=== PATIENT | male | born 1945 | race American Indian/Alaskan Native ===

== ENCOUNTER 2016-10-14 15:54 | Outpatient (CLI) | payer BC, MEDICARE | END 2016-10-14 15:55 | disposition home or self-care (01) | LOC: VAS 15:54 | PROVIDERS: ATTEND Podiatrist Foot & Ankle Surgery | DX: M79.662 Pain in left lower leg (principal); M79.89 Other specified soft tissue disorders ==

== ENCOUNTER 2016-11-17 20:13 | Emergency (ER) | payer BC, MEDICARE ==
[2016-11-17 21:47] LABS: Hematocrit 32.3 % (35.5-45.6); Hemoglobin 10.5 gm/dl (11.8-15.2); Mean Corpuscular HGB Conc 33 % (32-34); Mean Corpuscular Hemoglobin 28 pg (28-32); Mean Corpuscular Volume 86 fl (84-94); Platelet Count 113 K/mm3 (140-440); Red Blood Count 3.77 M/mm3 (3.65-5.03); Red Cell Distribution Width 15.3 % (13.2-15.2); White Blood Count 9.8 K/mm3 (4.5-11.0)
[2016-11-17 21:58] LABS: INR 1.48 (0.87-1.13)
[2016-11-17 21:59] LABS: Partial Thromboplastin Time 39.9 Sec. (24.2-36.6)
--- NOTE | 2016-11-17 22:04 | Emergency Department Report ---
HPI - General Chief Complaint: Dizziness Time Seen by Provider: 11/17/16 21:25 - HPI HPI: This is a 71-year-old Afro-[place]ese male who presents to the emergency department by EMS from [facility] after patient got very dizzy and fell over into a set of shelves and then onto the floor. He did not lose his consciousness before the fall and after hitting his head on the ground he did not lose consciousness as well. He has some discomfort to the right shoulder which is what impacted the floor first. He was feeling very weak and had trouble standing. He's been complaining of some generalized dizziness over the past week. He denies any fever, chest pain, nausea, vomiting or diaphoresis. He has a past medical history of asthma, CHF, COPD, insulin dependent diabetes, hypertension and has coronary artery disease with a previous triple bypass and has a internal defibrillator. He does not have a primary care doctor but his academic assistant is Dr. Walters, his plaster helper is Dr. Mcallister at [facility] and his ladies' hat trimmer is Dr. Bustamante. ED Past Medical Hx - Past Medical History Previous Medical History?: Yes Hx Hypertension: Yes Hx Congestive Heart Failure: Yes Hx Diabetes: Yes Hx Arthritis: Yes Hx Asthma: No Hx COPD: Yes - Surgical History Hx Open Heart Surgery: Yes (TRIPLE BYPASS IN 1996) Hx Pacemaker: Yes Hx Internal Defibrillator: Yes (IMPLANTED 03-27-14) - Social History Smoking Status: Former Smoker Substance Use Type: None - Medications Home Medications: Home Medications Medication Instructions Recorded Confirmed Last Taken Type Carvedilol [Coreg] 25 mg PO BID 08/21/13 08/08/14 05/29/14 History Doxazosin Mesylate 8 mg PO DAILY 08/21/13 08/08/14 05/29/14 History Insulin Glargine,Hum.rec.anlog 30 unit PO QDAY 08/21/13 08/08/14 05/28/14 History [Lantus Solostar] Isosorbide Dinitrate 30 mg PO DAILY 08/21/13 08/08/14 05/29/14 History Ranolazine [Ranexa] 1,000 mg PO BID 08/21/13 08/08/14 05/29/14 History Atorvastatin Calcium [Lipitor] 40 mg PO DAILY 12/25/13 08/08/14 03/26/14 History 40mg amLODIPine [Norvasc] 5 mg PO DAILY 03/27/14 08/08/14 05/29/14 History Epoetin Shorty [Procrit] 4,000 unit SQ QMONTH 08/08/14 08/08/14 08/04/14 History 4000 units Multivitamin [Multi-Vitamin Daily] 1 tab PO DAILY 08/08/14 08/08/14 Unknown History Albuterol Sulfate [Proventil HFA] 2 puff IH Q4H PRN #1 pump 08/13/14 Unknown Rx Insulin Aspart [NovoLOG 100 5 unit SQ AC #1 vial 08/13/14 Unknown Rx UNITS/ML] Metolazone 5 mg PO DAILY 30 Days 08/13/14 Unknown Rx ED Review of Systems ROS: Stated complaint: SYNCOPE Other details as noted in HPI Comment: All other systems reviewed and negative Constitutional: weakness. denies: fever Eyes: denies: eye pain, eye discharge, vision change ENT: denies: ear pain, throat pain Respiratory: shortness of breath. denies: cough Cardiovascular: denies: chest pain, palpitations, edema Gastrointestinal: denies: abdominal pain, nausea, diarrhea Genitourinary: denies: urgency, dysuria Musculoskeletal: arthralgia. denies: back pain Skin: denies: rash, lesions Neurological: headache, weakness. denies: numbness, paresthesias Physical Exam - Physical Exam Vital Signs: Vital Signs 11/17/16 11/17/16 21:16 21:22 Temperature 97.5 F L Pulse Rate 81 Respiratory 11 L 11 L Rate Blood Pressure 90/55 Blood Pressure 90/55 [Left] O2 Sat by Pulse 98 98 Oximetry Physical Exam: GENERAL: The patient is well-developed well-nourished. HEENT: Normocephalic. Atraumatic. Extraocular motions are intact. Patient has moist mucous membranes. Pupils equal reactive to light bilaterally. No nystagmus. NECK: Supple. Trachea is midline. CHEST/LUNGS: Clear to auscultation. There is no respiratory distress noted. HEART/CARDIOVASCULAR: Regular. There is no tachycardia. There is no gallop rub or murmur. ABDOMEN: Abdomen is soft, nontender. Patient has normal bowel sounds. There is no abdominal distention. SKIN: Skin is warm and dry. There are chronic bilateral lower extremity wounds and dressings. NEURO: The patient is awake, alert, and oriented. The patient is cooperative. The patient has no focal neurologic deficits. The patient has normal speech. Cranial nerves II-12 grossly intact. No pronator drift. No dysmetria. MUSCULOSKELETAL: There is no tenderness or deformity. There is no limitation range of motion. There is no evidence of acute injury. ED Course Vital Signs 11/17/16 11/17/16 21:16 21:22 Temperature 97.5 F L Pulse Rate 81 Respiratory 11 L 11 L Rate Blood Pressure 90/55 Blood Pressure 90/55 [Left] O2 Sat by Pulse 98 98 Oximetry - Consultations Consultation #1: 11/18/16 05:11 I spoke with the plaster helper on-call for [facility], whom the patient sees , Dr. Javed, and he says that the patient appears safe for discharge home but has accepted him for a follow-up in the office later today. ED Medical Decision Making - Lab Data Result diagrams: 11/17/16 21:34 11/17/16 21:34 - EKG Data -: EKG Interpreted by Me - EKG Data Interpretation: other (Man pacemaker, wide QRS with PVCs, left axis deviation, right bundle branch block, LVH, nonspecific ST-T changes) - Radiology Data Radiology results: report reviewed, image reviewed interpreted by me: Chest x-ray shows some hyperinflation of the lungs and flattening of the diaphragms but there is no pneumonia, pleural effusions or pneumothorax. X-ray of the right shoulder does not show any fracture, dislocation or any acute process. DT of the head without contrast shows no acute cranial process and mild atrophy. - Medical Decision Making 71-year-old male presents the emergency department after he had some dizziness and weakness and had a fall at [facility] earlier in the evening. He was evaluated with physical exam, labs, imaging and EKG. EKG did not show any ST elevation MD. Patient's labs show some chronic kidney disease and the patient has elevated troponin. A CT of the head was done that did not show any acute intracranial process. X-ray was done of the chest and the right shoulder that did not show any fracture, dislocation or any acute process. The patient was reevaluated multiple times over multiple hours and says he is feeling improved and back at his baseline. A second troponin was obtained and it is trending down. I spoke with the plaster helper on-call for [facility], whom the patient sees, Dr. Javed, and he says that the patient appears safe for discharge home but has accepted him for a follow-up in the office later today. The patient was able to ambulate throughout the emergency department and appeared stable on doing so. He had no further dizziness and weakness. He never had any chest pain or any acute distress. He been encouraged to return to the ER with any worsening of symptoms or any acute distress. - Differential Diagnosis hypoglycemia, DKA, HHNK, MD Critical Care Time: No Critical care attestation.: If time is entered above; I have spent that time in minutes in the direct care of this critically ill patient, excluding procedure time. ED Disposition Clinical Impression: Hyperglycemia, Dizziness Fall Qualifiers: Encounter type: initial encounter Qualified Code(s): W19.XXXA - Unspecified fall, initial encounter Disposition: DC- TO HOME OR SELFCARE Is pt being admited?: No Condition: Stable Instructions: Lightheadedness (ED), Dizziness (ED), Fall Prevention (ED), Diabetic Hyperglycemia (ED) Additional Instructions: Please follow-up with your primary care doctor, plaster helper, ladies' hat trimmer, and wound care physician's in the next few days. Return to the emergency department with any worsening of her symptoms or any acute distress. Continue with your diabetes regimen. Try to stay away from foods that are high in sugar , carbohydrates and starches to help with her blood sugar. Referrals: PRIMARY CARE, [Primary Care Provider] - 3-5 Days ESTER BUSTAMANTE MD [Staff Physician] - 3-5 Days MARCIAL MCALLISTER MD [Staff Physician] - [facility] Time of Disposition: 01:44
[2016-11-17 22:09] LABS: Creatine Kinase MB 2.3 ng/mL (0.0-4.0)
[2016-11-17 22:10] LABS: Albumin 3.2 g/dL (3.9-5); Albumin/Globulin Ratio 0.9 %; BUN/Creatinine Ratio 27.57; Bilirubin,Total 3.3 mg/dL (0.1-1.2); Calcium 8.6 mg/dL (8.4-10.2); Chloride 93.2 mmol/L (98-107); Potassium 4.3 mmol/L (3.6-5.0); Total Protein 6.6 g/dL (6.3-8.2)
[2016-11-17] MEDS ORDERED: NACL 0.9% 500 ML 500 ML IV ONE (22:14)
[2016-11-17 22:44] LABS: Basophils % (Manual) 0 % (0.0-1.8); Blastocytes % (Manual) 0 %; Eosinophils % (Manual) 0 % (0.0-4.3)
[2016-11-17 22:45] LABS: Anisocytosis 1+; Diff Status Complete; Hypochromasia 1+; Ovalocytes Few; Platelet Estimate Consistent w Auto; Poikilocytosis 1+
--- NOTE | 2016-11-17 23:33 | Cat Scan Report ---
FINAL REPORT PROCEDURE: CT HEAD/BRAIN WO CON TECHNIQUE: Computerized tomography of the head was performed without contrast material. HISTORY: Dizziness, fall COMPARISON: No prior studies are available for comparison. FINDINGS: Skull and scalp: Normal. Paranasal sinuses: Moderate opacification of the ethmoid and maxillary sinuses. Ventricles and subarachnoid spaces: Normal. Cerebrum: No evidence of hemorrhage, acute infarction or mass. Mild atrophy is noted. Mild periventricular deep white matter changes. . Cerebellum and brainstem: No evidence of hemorrhage, acute infarction or mass. Vasculature: Normal. Comments: None. IMPRESSION: No acute inrtracranial process. Mild atrophy.
[2016-11-18 00:42] LABS: Urine Drugs of Abuse Note Disclamer
[2016-11-18 00:53] LABS: Bacteria,Urine 1+ /HPF (Negative); Bilirubin,Urine NEG (Negative); Blood,Urine NEG (Negative); Granular Casts,Urine 9 /LPF; Ketones,Urine NEG (Negative); Leukocyte Esterase,Urine NEG (Negative); Nitrite,Urine NEG (Negative)
[2016-11-18 01:45] VITALS: BP 98/67
--- NOTE | 2016-11-18 07:29 | XRay Report ---
RIGHT SHOULDER: History: Shoulder pain. Borderline osteopenia. Moderate to severe osteoarthritic changes are identified at the right a.c. joint. Mild osteoarthritic changes at the glenohumeral joint. No evidence for fracture, dislocation, ligamentous injury or bone lesion. IMPRESSION: Degenerative changes.
--- NOTE | 2016-11-18 07:31 | XRay Report ---
AP CHEST: HISTORY: chest pain Mild cardiomegaly with normal pulmonary vascularity is identified. A 3-lead pacemaker device is in position. Previous CABG changes are suspected. The lungs are clear. No evidence for pneumonia, CHF or pneumothorax. The bony structures are mildly demineralized. IMPRESSION: Cardiomegaly. Lungs clear.
== END 2016-11-18 02:06 | disposition home or self-care (01) ==
LOC: ED 20:13
DX: E11.65 Type 2 diabetes mellitus with hyperglycemia (principal); R42 Dizziness and giddiness; I10 Essential (primary) hypertension; I50.9 Heart failure, unspecified; M19.90 Unspecified osteoarthritis, unspecified site; J44.9 Chronic obstructive pulmonary disease, unspecified; Z87.891 Personal history of nicotine dependence; Z79.4 Long term (current) use of insulin; Z95.0 Presence of cardiac pacemaker; W01.10XA Fall on same level from slipping, tripping and stumbling with subsequent striking against unspecified object, initial encounter; Y93.89 Activity, other specified; Y99.8 Other external cause status; Y92.89 Other specified places as the place of occurrence of the external cause
CPT/HCPCS: 36415; 70450; 71010; 73030; 80053; 80061; 80307; 81001; 82550; 82553; 82962; 84484; 85007; 85025; 85610; 85730; 93005; 93010; 96361; 96374; 99285; J7040; J1815

== ENCOUNTER 2016-11-28 12:06 | Inpatient (IN) | payer BC, MEDICARE ==
[2016-11-28] MEDS ORDERED: NOVOLOG SUB-Q ONE (14:33)
--- NOTE | 2016-11-28 16:32 | Consultation ---
History of Present Illness - Reason for Consult Consult date: 11/28/16 Lower Extremity Wound Infections Requesting physician: NAY MOSQUERA - History of Present Illness Mr. Burgess is off the floor and is unavailable for me to complete his visit today. I will re-attempt tomorrow. Medications and Allergies Allergies Allergy/AdvReac Type Severity Reaction Status Date / Time lisinopril Allergy Mild Unknown Verified 08/08/14 11:26 pollen extracts AdvReac COUGH,SNEEZ Unverified 11/28/16 13:22 E Home Medications Medication Instructions Recorded Confirmed Last Taken Type Carvedilol [Coreg] 25 mg PO BID 08/21/13 08/08/14 05/29/14 History Doxazosin Mesylate 8 mg PO DAILY 08/21/13 08/08/14 05/29/14 History Insulin Glargine,Hum.rec.anlog 30 unit PO QDAY 08/21/13 08/08/14 05/28/14 History [Lantus Solostar] Isosorbide Dinitrate 30 mg PO DAILY 08/21/13 08/08/14 05/29/14 History Ranolazine [Ranexa] 1,000 mg PO BID 08/21/13 08/08/14 05/29/14 History Atorvastatin Calcium [Lipitor] 40 mg PO DAILY 12/25/13 08/08/14 03/26/14 History 40mg amLODIPine [Norvasc] 5 mg PO DAILY 03/27/14 08/08/14 05/29/14 History Epoetin Shorty [Procrit] 4,000 unit SQ QMONTH 08/08/14 08/08/14 08/04/14 History 4000 units Multivitamin [Multi-Vitamin Daily] 1 tab PO DAILY 08/08/14 08/08/14 Unknown History Albuterol Sulfate [Proventil HFA] 2 puff IH Q4H PRN #1 pump 08/13/14 Unknown Rx Insulin Aspart [NovoLOG 100 5 unit SQ AC #1 vial 08/13/14 Unknown Rx UNITS/ML] Metolazone 5 mg PO DAILY 30 Days 08/13/14 Unknown Rx Active Meds: Active Medications Insulin Aspart (Novolog) 0 units SUB-Q ACHS KYLAH PRN Reason: Protocol Pneumococcal Polyvalent Vaccine (Pneumovax 23) 0.5 ml IM .ONCE ONE Stop: 11/29/16 15:00 Physical Examination - Constitutional Vitals: Vital Signs Temp Pulse Resp BP Pulse Ox 97.5 F L 69 20 107/74 11/28/16 14:08 11/28/16 14:08 11/28/16 14:08 11/28/16 14:08 Temperature -Last 24 Hours Temperature 97.5 F Results - Labs CBC & Chem 7: 11/28/16 16:02 Labs: Abnormal lab results 11/28/16 Range/Units 14:16 POC Glucose 500 H (70-105)
[2016-11-28 16:33] LABS: INR 1.42 (0.87-1.13)
[2016-11-28] MEDS ORDERED: MILK OF MAGNESIA PO PRN (16:46)
[2016-11-28] MEDS ORDERED: ZOFRAN IV PRN (16:46)
[2016-11-28] MEDS ORDERED: DULCOLAX PR PRN (16:46)
[2016-11-28 16:54] LABS: BUN/Creatinine Ratio 29.41; Potassium 3.3 mmol/L (3.6-5.0)
--- NOTE | 2016-11-28 17:15 | History and Physical Report ---
History of Present Illness Date of examination: 11/28/16 Date of admission: 11/28/16 13:20 Chief complaint: Bilateral Lower Extremeties Diabetic Ulcers History of present illness: A 71 year-old -Northern [place] male presented to us as a direct admit from Dr Grimm's office for bilateral lower extremities diabetic ulcers and end- stage renal disease. Patient presented with multiple open wounds to the lower extremities closing +4 edema noted. Patient past medical history hypertension, diabetes, AICD. No feve ror chills.No Sob. Past History Past Medical History: diabetes, hypertension Past Surgical History: CABG (1996), Other (AICD placement, back sugery 1996) Social history: lives with family, full code. denies: smoking (quit x20 years, ), alcohol abuse, prescription drug abuse Family history: CAD, cancer, diabetes, hypertension Medications and Allergies Allergies Allergy/AdvReac Type Severity Reaction Status Date / Time lisinopril Allergy Mild Unknown Verified 08/08/14 11:26 pollen extracts AdvReac COUGH,SNEEZ Unverified 11/28/16 13:22 E Home Medications Medication Instructions Recorded Confirmed Last Taken Type Carvedilol [Coreg] 25 mg PO BID 08/21/13 08/08/14 05/29/14 History Doxazosin Mesylate 8 mg PO DAILY 08/21/13 08/08/14 05/29/14 History Insulin Glargine,Hum.rec.anlog 30 unit PO QDAY 08/21/13 08/08/14 05/28/14 History [Lantus Solostar] Isosorbide Dinitrate 30 mg PO DAILY 08/21/13 08/08/14 05/29/14 History Ranolazine [Ranexa] 1,000 mg PO BID 08/21/13 08/08/14 05/29/14 History Atorvastatin Calcium [Lipitor] 40 mg PO DAILY 12/25/13 08/08/14 03/26/14 History 40mg amLODIPine [Norvasc] 5 mg PO DAILY 03/27/14 08/08/14 05/29/14 History Epoetin Shorty [Procrit] 4,000 unit SQ QMONTH 08/08/14 08/08/14 08/04/14 History 4000 units Multivitamin [Multi-Vitamin Daily] 1 tab PO DAILY 08/08/14 08/08/14 Unknown History Albuterol Sulfate [Proventil HFA] 2 puff IH Q4H PRN #1 pump 08/13/14 Unknown Rx Insulin Aspart [NovoLOG 100 5 unit SQ AC #1 vial 08/13/14 Unknown Rx UNITS/ML] Metolazone 5 mg PO DAILY 30 Days 08/13/14 Unknown Rx Active Meds: Active Medications Acetaminophen (Tylenol) 650 mg PO Q4H PRN PRN Reason: Pain MILD(1-3)/Fever >100.5/DANG Bisacodyl (Dulcolax) 10 mg [place] QDAY PRN PRN Reason: Constipation unrelieved by MOM Dextrose (D50w (25gm)) 50 ml IV PRN PRN PRN Reason: Hypoglycemia Heparin Sodium (Porcine) (Heparin) 5,000 unit SUB-Q Q12HR KYLAH Insulin Aspart (Novolog) 0 units SUB-Q ACHS KYLAH PRN Reason: Protocol Magnesium Hydroxide (Milk Of Magnesia) 30 ml PO Q4H PRN PRN Reason: Constipation Morphine Sulfate (Morphine) 1 mg IV Q4H PRN PRN Reason: Pain, Moderate (4-6) Ondansetron HCl (Zofran) 4 mg IV Q8H PRN PRN Reason: Nausea And Vomiting Pneumococcal Polyvalent Vaccine (Pneumovax 23) 0.5 ml IM .ONCE ONE Stop: 11/29/16 15:00 Review of Systems All systems: negative Constitutional: no weight loss, no weight gain, no fever, no chills Ears, nose, mouth and throat: no nasal congestion, no nasal discharge Cardiovascular: no chest pain, no syncope, no shortness of breath Respiratory: cough with sputum (Thick greyish), no hemoptysis, no shortness of breath Gastrointestinal: no abdominal pain, no nausea, no vomiting, no diarrhea, no constipation Genitourinary Male: no dysuria, no hematuria Rectal: no incontinence Musculoskeletal: no arm numbness/tingling, no low back pain Integumentary: no rash, no sores, no wounds Neurological: no head injury, no seizures, no vertigo, no headaches Psychiatric: no anxiety, no suicidal ideation, no depression Endocrine: no fatigue Exam - Constitutional Vitals: Temp Pulse Resp BP Pulse Ox 97.5 F L 69 20 107/74 11/28/16 14:08 11/28/16 14:08 11/28/16 14:08 11/28/16 14:08 General appearance: Present: no acute distress, well-nourished - EENT Eyes: Present: PERRL ENT: hearing intact, clear oral mucosa - Neck Neck: Present: supple, normal ROM - Respiratory Respiratory effort: normal Respiratory: bilateral: CTA - Cardiovascular Rhythm: regular Heart Sounds: Present: S1 & S2. Absent: rub, click - Extremities Extremities: abnormal - Peripheral Assessment Right Foot Edema Type: Pitting Edema Degree: 4+ Skin Temperature: Cool Left Foot Edema Type: Pitting Edema Degree: 4+ Skin Temperature: Warm Peripheral Pulses: abnormal - Peripheral pulses dorsalis pedis Pulse Strength: 1+ (Doppler) - Abdominal General gastrointestinal: Present: soft, non-tender, non-distended, normal bowel sounds Male genitourinary: Present: normal - Integumentary Integumentary: Present: warm, dry - Musculoskeletal Musculoskeletal: gait normal, strength equal bilaterally - Psychiatric Psychiatric: appropriate mood/affect, intact judgment & insight - Neurologic Neurologic: focal deficits - Allied Health Allied health notes reviewed: nursing Results - Labs CBC & Chem 7: 11/28/16 16:02 Labs: Laboratory Last Values PT 17.3 Sec. (12.2-14.9) H 11/28/16 16:02 INR 1.42 (0.87-1.13) H 11/28/16 16:02 APTT 38.0 Sec. (24.2-36.6) H 11/28/16 16:02 Sodium 137 mmol/L (137-145) 11/28/16 16:02 Potassium 3.3 mmol/L (3.6-5.0) L 11/28/16 16:02 Chloride 96.0 mmol/L (98-107) L 11/28/16 16:02 Carbon Dioxide 25 mmol/L (22-30) 11/28/16 16:02 Anion Gap 19 mmol/L 11/28/16 16:02 BUN 100 mg/dL (9-20) H 11/28/16 16:02 Creatinine 3.4 mg/dL (0.8-1.5) H 11/28/16 16:02 Estimated GFR 22 ml/min 11/28/16 16:02 BUN/Creatinine Ratio 29.41 % 11/28/16 16:02 Glucose 235 mg/dL (75-100) H 11/28/16 16:02 POC Glucose 500 (70-105) H 11/28/16 14:16 Hemoglobin A1c 10.6 % (4-6) H 11/28/16 16:02 Calcium 9.0 mg/dL (8.4-10.2) 11/28/16 16:02 Assessment and Plan Assessment and plan: A 71 year-old -[place] male presented to us as a direct admit from Dr Grimm's office for bilateral lower extremities diabetic ulcers and acute end- stage renal disease. Patient presented with multiple open wounds to the lower extremities closing +4 edema noted. Patient past medical history hypertension, diabetes, AICD. On exam, patient alert oriented 3, bilateral lower extremities open wounds. -Cellulitis - consulted ID, antibiotics ordered in the form of vancomycin and unasyn 3.0 q6 h. supportive care -Acute renal failure stage III-nephrology consulted, consulted vascular surgery /IR for possible Vas-Cath placement. -Hypokalemia-replete potassium and follow up labs -DM 2-A1c is 10.6-hence poorly controlled.Patient counselled .Levemir and regular insulin dosage not changed taking into consideration that Glucose dropped rapidly from 500 to 60,and patient maybe non compliant.Advised patient to be compliant,And if he is getting low BG levels with his home insulin -to decrease if necessary. monitor Accu-Cheks and insulin sliding scale ordered. -Wounds- wound care consult, supportive care.Regular dressings. -DVT prophylaxis -heparin SQ ordered Advance Directives: No ( Full Code) VTE prophylaxis?: Chemical Plan of care discussed with patient/family: Yes
[2016-11-28] MEDS ORDERED: K-DUR PO ONE (17:36)
[2016-11-28] MEDS ORDERED: PROAIR IH PRN (17:39)
[2016-11-28] MEDS ORDERED: VANCOMYCIN PHARMACY TO DOSE IV SCH (18:00)
[2016-11-28] MEDS ORDERED: VANCOMYCIN 1,250 MG in NACL 0.9% 250ML 250 ML IV ONE (18:30)
[2016-11-28] MEDS: TYLENOL PO PRN (18:51)
[2016-11-28] MEDS: NOVOLOG SUB-Q SCH ×2 (18:52→21:59)
[2016-11-28] MEDS: MORPHINE IV PRN (20:56)
[2016-11-28] MEDS ORDERED: LEVEMIR SUB-Q SCH (22:00)
[2016-11-28] MEDS ORDERED: NON-FORMULARY (Ranolazine [Ranexa] 1,000 MG) PO SCH (22:00)
[2016-11-28] MEDS: RANEXA ER PO SCH (23:32)
[2016-11-28] MEDS: HEPARIN SUB-Q SCH (23:33)
[2016-11-28] MEDS: COREG PO SCH (23:36)
[2016-11-29] MEDS: UNASYN/NS 3 GM/100 ML 3 GM/100 ML BAG IV SCH ×2 (04:17→14:43)
[2016-11-29] MEDS: D50W (25GM) IV PRN ×3 (07:08→21:16)
[2016-11-29] MEDS: NOVOLOG SUB-Q SCH ×7 (08:13→23:54)
[2016-11-29] MEDS: MORPHINE IV PRN ×2 (08:19→14:48)
--- NOTE | 2016-11-29 08:45 | Admit Criteria Form ---
Admission Criteria Documentation: CELLULITIS Clinical Indications for Admission to Inpatient Care (Place 'X' for any and all applicable criteria): Admission is indicated for ANY ONE of the following(1)(2)(3)(4)(5): [ ]I. Limb-threatening infection [X]II. High-risk comorbid condition as indicated by ANY ONE of the following: [X]a) Uncontrolled diabetes (eg, HbA1c greater than 10% (0.1)) [ ]b) Cirrhosis [ ]c) Neutropenia [ ]d) Asplenia [ ]e) Immunosuppression [ ]f) Symptomatic heart failure [ ]III. Failure of outpatient therapy as indicated by ALL of the following: [ ]a) Progression or no improvement after adequate trial (minimum of 48 hours, with longer period for stable lower extremity infection) [ ]b) Adequate antibiotic regimen as indicated by use of ANY ONE of the following: [ ]i) First-generation cephalosporin (e.g., cephalexin) [ ]ii) Antistaphylococcal penicillin (e.g., dicloxacillin) [ ]iii) Penicillin-allergic patient regimen (clindamycin, extended-spectrum fluoroquinolone, or doxycycline) [ ]iv) Resistant organism (eg, methicillin-resistant Staphylococcus aureus) regimen (6) [ ]c) Outpatient intravenous therapy regimen is not appropriate due to ANY ONE of the following. (7)(8)(9)(10): [ ]i) It was tried and was not successful (eg, progression of infection). [ ]ii) It is not available or cannot be arranged in a clinically appropriate time frame (e.g., the next day). [ ]iii) Clinical presentation (eg, acuity of infection, rapidity of progression, confirmed or suspected bacteremia) is judged to require ALL of the following: [ ]1) Immediate initiation of intravenous therapy ( eg, cannot wait for next day) [ ]2) Intensity of patient monitoring and observation (eg, vital sign measurement, checks for infection progression) that cannot be provided at other than inpatient level of care [ ]IV. Mental status changes [ ]V. Bacteremia [ ]. Hemodynamic instability [ ]VII. Suspected necrotizing soft tissue infection (e.g., gas in tissue)(11)( 12) [ ]VIII. Orbital infection (13)(14) [ ]IX. Associated surgical procedure (e.g., abscess drainage, debridement) not amenable to outpatient, emergency department, or observation care [ ]X. Cutaneous gangrene [ ]XI. High fever (temperature greater than 39.5 degrees C (103.1 degrees F) (oral)) not responsive to outpatient, emergency department, or observation care therapy [ ]XIII. Inpatient admission required rather than observation care (Also use Cellulitis: Observation Care as appropriate) because of ANY ONE of the following : [ ]a) Periorbital or perineal infection that is severe or worsening [ ]b) Severe pain requiring acute inpatient management [ ]c) IV fluid to replace significant ongoing (e.g., for over 24 hours) losses (greater than 3L/m2 per day) [ ]d) Compartment syndrome monitoring (17) [ ]e) Strict or protective (eg, laminar flow) isolation [ ]f) Urgent debridement or skin grafting [ ]g) Bone or joint debridement [ ]h) Immediate inpatient surgery [ ]i) Other condition, treatment or monitoring requiring inpatient admission Extended stay beyond goal length of stay may be needed for (1)(18): [ ]a) Necrotizing soft tissue infection or fasciitis [ ]b) Gram-negative infection [ ]c) Methicillin-resistant Staphylococcal aureus (MRSA) infection [ ]d) Peripheral venous insufficiency with cellulitis [ ]e) Extensive edema [ ]f) Sepsis or continued Hemodynamic instability [ ]g) Continued high fever or mental status change [ ]h) Bacteremia [ ]i) Active serious comorbid conditions ( eg, heart failure, renal insufficiency) The original [facility] content created by [facility] [employer] has been revised. The portions of the content which have been revised are identified through the use of italic text or in bold, and [facility] has neither reviewed nor approved the modified material. All other unmodified content is copyright [facility] [employer] [facility] Please see references footnoted in the original [facility] [employer] edition 2016 Admission Criteria Met: Yes
[2016-11-29] MEDS ORDERED: ANCEF/STERILE WATER 2 GM/20 ML 2 GM/20 ML SYRINGE IV NR (09:00)
--- NOTE | 2016-11-29 09:34 | Vascular Lab Report ---
LOWER EXTREMITY ARTERIAL DUPLEX: REASON FOR EXAM: Peripheral arterial disease. COMMENTS ON THE RIGHT: Biphasic waveforms are seen proximally. Biphasic waveforms are seen distally. No significant velocity gradients are identified. Scatter plaque identified throughout the vessels. Findings are consistent with normal perfusion. Findings are consistent with the ability to heal distal wounds. COMMENTS ON THE LEFT: Triphasic waveforms are seen proximally. Monophasic waveforms are seen distally. No significant velocity gradients are identified. Scatter plaque identified throughout the vessels. Findings are consistent with normal perfusion. Findings are consistent with the ability to heal distal wounds. IMPRESSION: RIGHT: Essentially normal arterial flow with nonocclusive peripheral vascular disease. LEFT:Essentially normal arterial flow with no hemodynamically significant stenosis but nonocclusive peripheral vascular disease.
[2016-11-29 09:38] LABS: Eosinophils % (Auto) 0.1 % (0.0-4.3); Hematocrit 30.9 % (35.5-45.6); Hemoglobin 10.2 gm/dl (11.8-15.2); Mean Corpuscular HGB Conc 33 % (32-34); Mean Corpuscular Hemoglobin 28 pg (28-32); Mean Corpuscular Volume 84 fl (84-94); Platelet Count 104 K/mm3 (140-440); Red Blood Count 3.66 M/mm3 (3.65-5.03); White Blood Count 10.4 K/mm3 (4.5-11.0)
[2016-11-29 09:51] LABS: BUN/Creatinine Ratio 32.75; Calcium 8.5 mg/dL (8.4-10.2); Chloride 101.2 mmol/L (98-107); Potassium 3.7 mmol/L (3.6-5.0)
[2016-11-29] MEDS ORDERED: ZAROXOLYN PO SCH (10:00)
[2016-11-29] MEDS ORDERED: NON-FORMULARY (Insulin Glargine,Hum.Rec.Anlog [Lantus Solostar] 30 UNIT) PO SCH (10:00)
[2016-11-29] MEDS ORDERED: NON-FORMULARY (Doxazosin Mesylate [Doxazosin Mesylate] 8 MG) PO SCH (10:00)
[2016-11-29] MEDS ORDERED: NON-FORMULARY (Isosorbide Dinitrate [Isosorbide Dinitrate] 30 MG) PO SCH (10:00)
--- NOTE | 2016-11-29 10:04 | Consultation ---
History of Present Illness - Reason for Consult Consult date: 11/29/16 acute renal failure, chronic renal failure Requesting physician: ANY MOSQUERA - History of Present Illness A 71 year-old -Maldivian male presented to us as a direct admit from Dr Grimm's office for bilateral lower extremities diabetic ulcers and chronic renal disease. Patient presented with multiple open wounds to the lower extremities closing +4 edema noted. Patient past medical history hypertension, diabetes, AICD. No feve ror chills.No Sob. Past History Past Medical History: CAD, diabetes, hypertension, hyperlipidemia, PVD, renal failure Past Surgical History: CABG (1996), Other (AICD placement, back sugery 1996) Social history: lives with family, full code. denies: smoking (quit x20 years, ), alcohol abuse, prescription drug abuse Family history: CAD, cancer, diabetes, hypertension Medications and Allergies Allergies Allergy/AdvReac Type Severity Reaction Status Date / Time lisinopril Allergy Mild Unknown Verified 08/08/14 11:26 pollen extracts AdvReac COUGH,SNEEZ Unverified 11/28/16 13:22 E Home Medications Medication Instructions Recorded Confirmed Last Taken Type Carvedilol [Coreg] 25 mg PO BID 08/21/13 08/08/14 05/29/14 History Doxazosin Mesylate 8 mg PO DAILY 08/21/13 08/08/14 05/29/14 History Insulin Glargine,Hum.rec.anlog 30 unit PO QDAY 08/21/13 08/08/14 05/28/14 History [Lantus Solostar] Isosorbide Dinitrate 30 mg PO DAILY 08/21/13 08/08/14 05/29/14 History Ranolazine [Ranexa] 1,000 mg PO BID 08/21/13 08/08/14 05/29/14 History Atorvastatin Calcium [Lipitor] 40 mg PO DAILY 12/25/13 08/08/14 03/26/14 History 40mg amLODIPine [Norvasc] 5 mg PO DAILY 03/27/14 08/08/14 05/29/14 History Epoetin Shorty [Procrit] 4,000 unit SQ QMONTH 08/08/14 08/08/14 08/04/14 History 4000 units Multivitamin [Multi-Vitamin Daily] 1 tab PO DAILY 08/08/14 08/08/14 Unknown History Albuterol Sulfate [Proventil HFA] 2 puff IH Q4H PRN #1 pump 08/13/14 Unknown Rx Insulin Aspart [NovoLOG 100 5 unit SQ AC #1 vial 08/13/14 Unknown Rx UNITS/ML] Metolazone 5 mg PO DAILY 30 Days 08/13/14 Unknown Rx Active Meds: Active Medications Acetaminophen (Tylenol) 650 mg PO Q4H PRN PRN Reason: Pain MILD(1-3)/Fever >100.5/DANG Last Admin: 11/28/16 18:51 Dose: 650 mg Albuterol (Proventil) 2.5 mg IH Q4HRT PRN PRN Reason: Shortness Of Breath Amlodipine Besylate (Norvasc) 5 mg PO DAILY [facility] Atorvastatin Calcium (Lipitor) 40 mg PO QHS [facility] Last Admin: 11/28/16 23:33 Dose: 40 mg Bisacodyl (Dulcolax) 10 mg [place] QDAY PRN PRN Reason: Constipation unrelieved by MOM Carvedilol (Coreg) 25 mg PO BID [facility] Last Admin: 11/28/16 23:36 Dose: 25 mg Dextrose (D50w (25gm)) 50 ml IV PRN PRN PRN Reason: Hypoglycemia Last Admin: 11/29/16 07:08 Dose: 25 ml Doxazosin Mesylate (Cardura) 8 mg PO QDAY [facility] Heparin Sodium (Porcine) (Heparin) 5,000 unit SUB-Q Q12HR [facility] Last Admin: 11/28/16 23:33 Dose: 5,000 unit Ampicillin Sodium/Sulbactam Sodium (Unasyn/Ns 3 Gm/100 Ml) 3 gm in 100 mls @ 100 mls/hr IV Q12H [facility] PRN Reason: Protocol Last Admin: 11/29/16 04:17 Dose: 100 mls/hr Insulin Aspart (Novolog) 0 units SUB-Q ACHS [facility] PRN Reason: Protocol Last Admin: 11/29/16 08:13 Dose: Not Given Insulin Aspart (Novolog) 8 units SUB-Q AC [facility] Last Admin: 11/29/16 08:14 Dose: Not Given Insulin Detemir (Levemir) 45 units SUB-Q QHS [facility] Isosorbide Dinitrate (Isordil Titradose) 30 mg PO DAILY [facility] Morphine Sulfate (Morphine) 1 mg IV Q4H PRN PRN Reason: Pain, Moderate (4-6) Last Admin: 11/29/16 08:19 Dose: 1 mg Ondansetron HCl (Zofran) 4 mg IV Q8H PRN PRN Reason: Nausea And Vomiting Pneumococcal Polyvalent Vaccine (Pneumovax 23) 0.5 ml IM .ONCE ONE Stop: 11/29/16 15:00 Ranolazine (Ranexa Er) 1,000 mg PO BID [facility] Last Admin: 11/28/16 23:32 Dose: 1,000 mg Vancomycin HCl (Vancomycin Pharmacy To Dose) 1 each IV PKCONSULT [facility] PRN Reason: Protocol Review of Systems Constitutional: fatigue, weakness, malaise Musculoskeletal: redness of joints, muscle weakness, myalgias, limitation of motion Integumentary: sores, darkening of skin, depigmentation, foot/leg ulcers Exam - Vital Signs Vital signs: Vital Signs Pulse Ox 97 11/28/16 14:06 - Physical Exam Narrative exam: General appearance: Present: no acute distress, well-nourished - EENT Eyes: Present: PERRL ENT: hearing intact, clear oral mucosa - Neck Neck: Present: supple, normal ROM - Respiratory Respiratory effort: normal Respiratory: bilateral: CTA - Cardiovascular Rhythm: regular Heart Sounds: Present: S1 & S2. Absent: rub, click - Extremities Extremities: abnormal - Peripheral Assessment Right Foot Edema Type: Pitting Edema Degree: 4+ Skin Temperature: Cool Left Foot Edema Type: Pitting Edema Degree: 4+ Skin Temperature: Warm Peripheral Pulses: abnormal - Peripheral pulses dorsalis pedis Pulse Strength: 1+ (Doppler) - Abdominal General gastrointestinal: Present: soft, non-tender, non-distended, normal bowel sounds Male genitourinary: Present: normal - Integumentary Integumentary: Present: warm, dry - Musculoskeletal Musculoskeletal: gait normal, strength equal bilaterally - Psychiatric Psychiatric: appropriate mood/affect, intact judgment & insight - Neurologic Neurologic: focal deficits Results - Lab Results 11/29/16 08:37 11/29/16 08:37 Most recent lab results Calcium 8.5 mg/dL (8.4-10.2) 11/29/16 08:37 Assessment and Plan Impression: * TREMAINE on CKD stage 4 * Foot/leg ulcers * HTN * DM type 2 * CAD * PVD * COPD Plan: * strict i/os * iv abx for DM ulcers * follow up renal us/UA--r/o infection * dose meds crcl 20ml/min * 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
--- NOTE | 2016-11-29 12:33 | Consultation ---
History of Present Illness - Reason for Consult Consult date: 11/29/16 Lower Extremity Wounds Requesting physician: NAY MOSQUERA - History of Present Illness Mr. Burgess is a 71-year-old man directly admitted from Dr. Grimm's office with concerns of wound infections over his lower extremities. He is a pleasant, but his history is somewhat unreliable given apparent dementia. He says he has had chronic wounds on both legs for 5-6 months. He has been managed at the wound clinic with what he and his daughter describe as wound cleaning and "DEISI" wraps. More recently, the wounds have increased drainage with a foul odor. He denies systemic complaints, namely no fever, chills, decreased appetite. He is admitted for wound care and treatment of presumed infected wounds. ID consultation is requested for antibiotic treatment recommendations. Past History Past Medical History: CAD, diabetes, hypertension, hyperlipidemia, PVD, renal failure Past Surgical History: CABG (1996), Other (AICD placement, back sugery 1996) Social history: lives with family, full code. denies: smoking (quit x20 years, ), alcohol abuse, prescription drug abuse Family history: CAD, cancer, diabetes, hypertension Medications and Allergies Allergies Allergy/AdvReac Type Severity Reaction Status Date / Time lisinopril Allergy Mild Unknown Verified 08/08/14 11:26 pollen extracts AdvReac COUGH,SNEEZ Unverified 11/28/16 13:22 E Home Medications Medication Instructions Recorded Confirmed Last Taken Type Carvedilol [Coreg] 25 mg PO BID 08/21/13 08/08/14 05/29/14 History Doxazosin Mesylate 8 mg PO DAILY 08/21/13 08/08/14 05/29/14 History Insulin Glargine,Hum.rec.anlog 30 unit PO QDAY 08/21/13 08/08/14 05/28/14 History [Lantus Solostar] Isosorbide Dinitrate 30 mg PO DAILY 08/21/13 08/08/14 05/29/14 History Ranolazine [Ranexa] 1,000 mg PO BID 08/21/13 08/08/14 05/29/14 History Atorvastatin Calcium [Lipitor] 40 mg PO DAILY 12/25/13 08/08/14 03/26/14 History 40mg amLODIPine [Norvasc] 5 mg PO DAILY 03/27/14 08/08/14 05/29/14 History Epoetin Shorty [Procrit] 4,000 unit SQ QMONTH 08/08/14 08/08/14 08/04/14 History 4000 units Multivitamin [Multi-Vitamin Daily] 1 tab PO DAILY 08/08/14 08/08/14 Unknown History Albuterol Sulfate [Proventil HFA] 2 puff IH Q4H PRN #1 pump 08/13/14 Unknown Rx Insulin Aspart [NovoLOG 100 5 unit SQ AC #1 vial 08/13/14 Unknown Rx UNITS/ML] Metolazone 5 mg PO DAILY 30 Days 08/13/14 Unknown Rx Active Meds: Active Medications Acetaminophen (Tylenol) 650 mg PO Q4H PRN PRN Reason: Pain MILD(1-3)/Fever >100.5/DANG Last Admin: 11/28/16 18:51 Dose: 650 mg Albuterol (Proventil) 2.5 mg IH Q4HRT PRN PRN Reason: Shortness Of Breath Amlodipine Besylate (Norvasc) 5 mg PO DAILY [facility] Atorvastatin Calcium (Lipitor) 40 mg PO QHS [facility] Last Admin: 11/28/16 23:33 Dose: 40 mg Bisacodyl (Dulcolax) 10 mg [place] QDAY PRN PRN Reason: Constipation unrelieved by MOM Carvedilol (Coreg) 25 mg PO BID [facility] Last Admin: 11/28/16 23:36 Dose: 25 mg Dextrose (D50w (25gm)) 50 ml IV PRN PRN PRN Reason: Hypoglycemia Last Admin: 11/29/16 11:50 Dose: 50 ml Doxazosin Mesylate (Cardura) 8 mg PO QDAY [facility] Heparin Sodium (Porcine) (Heparin) 5,000 unit SUB-Q Q12HR [facility] Last Admin: 11/28/16 23:33 Dose: 5,000 unit Ampicillin Sodium/Sulbactam Sodium (Unasyn/Ns 3 Gm/100 Ml) 3 gm in 100 mls @ 100 mls/hr IV Q12H [facility] PRN Reason: Protocol Last Admin: 11/29/16 04:17 Dose: 100 mls/hr Sodium Chloride (Nacl 0.45% 1000 Ml) 1,000 mls @ 65 mls/hr IV DIRECT [facility] Insulin Aspart (Novolog) 0 units SUB-Q ACHS [facility] PRN Reason: Protocol Last Admin: 11/29/16 08:13 Dose: Not Given Insulin Aspart (Novolog) 8 units SUB-Q AC [facility] Last Admin: 11/29/16 08:14 Dose: Not Given Insulin Detemir (Levemir) 45 units SUB-Q QHS [facility] Isosorbide Dinitrate (Isordil Titradose) 30 mg PO DAILY [facility] Morphine Sulfate (Morphine) 1 mg IV Q4H PRN PRN Reason: Pain, Moderate (4-6) Last Admin: 11/29/16 08:19 Dose: 1 mg Ondansetron HCl (Zofran) 4 mg IV Q8H PRN PRN Reason: Nausea And Vomiting Pneumococcal Polyvalent Vaccine (Pneumovax 23) 0.5 ml IM .ONCE ONE Stop: 11/29/16 15:00 Ranolazine (Ranexa Er) 1,000 mg PO BID [facility] Last Admin: 11/28/16 23:32 Dose: 1,000 mg Vancomycin HCl (Vancomycin Pharmacy To Dose) 1 each IV PKCONSULT [facility] PRN Reason: Protocol Review of Systems All systems: negative Constitutional: no fever, no chills, no sweats, no poor appetite Cardiovascular: no chest pain, no shortness of breath Respiratory: no cough Gastrointestinal: no nausea, no vomiting, no diarrhea Genitourinary Male: no dysuria Integumentary: wounds, no rash, no pruritis Physical Examination - Constitutional Vitals: Vital Signs Temp Pulse Resp BP Pulse Ox 98.0 F 94 H 16 106/55 96 11/29/16 08:00 11/29/16 08:00 11/29/16 08:49 11/29/16 08:00 11/29/16 08:00 Temperature -Last 24 Hours Temperature 98.0 F Temperature 98.0 F Temperature 97.5 F General appearance: Present: no acute distress - Neck Neck: Present: supple - Respiratory Respiratory: bilateral: CTA, negative: rhonchi, wheezing - Cardiovascular Rhythm: regularly irregular (ICD at left chest wall) - Extremities Extremities: abnormal (bilateral legs have superficial wounds laterally at the level of calf with purulent, malodorous drainage; there is mild pedal edema bilaterally) - Abdominal General gastrointestinal: Present: soft, non-tender, non-distended - Integumentary Integumentary: Absent: rash - Psychiatric Psychiatric: appropriate mood/affect - Neurologic Neurologic: other (alert; oriented to person and "hospital", not to year ("1939- ")) Results - Labs CBC & Chem 7: 11/29/16 08:37 11/29/16 08:37 Labs: Abnormal lab results 11/28/16 11/28/16 11/28/16 Range/Units 14:16 16:02 16:02 Hgb (11.8-15.2) gm/dl Hct (35.5-45.6) % RDW (13.2-15.2) % Plt Count (140-440) K/mm3 Lymph % (Auto) (13.4-35.0) % [place] % (Auto) (0.0-7.3) % Lymph # (1.2-5.4) K/mm3 [place] # (0.0-0.8) K/mm3 Seg Neutrophils % (40.0-70.0) % Seg Neutrophils # (1.8-7.7) K/mm3 PT 17.3 H (12.2-14.9) Sec. INR 1.42 H (0.87-1.13) APTT 38.0 H (24.2-36.6) Sec. Potassium 3.3 L (3.6-5.0) mmol/L Chloride 96.0 L (98-107) mmol/L BUN 100 H (9-20) mg/dL Creatinine 3.4 H (0.8-1.5) mg/dL Glucose 235 H (75-100) mg/dL POC Glucose 500 H (70-105) Hemoglobin A1c (4-6) % 11/28/16 11/28/16 11/29/16 Range/Units 16:02 21:30 05:50 Hgb (11.8-15.2) gm/dl Hct (35.5-45.6) % RDW (13.2-15.2) % Plt Count (140-440) K/mm3 Lymph % (Auto) (13.4-35.0) % [place] % (Auto) (0.0-7.3) % Lymph # (1.2-5.4) K/mm3 [place] # (0.0-0.8) K/mm3 Seg Neutrophils % (40.0-70.0) % Seg Neutrophils # (1.8-7.7) K/mm3 PT (12.2-14.9) Sec. INR (0.87-1.13) APTT (24.2-36.6) Sec. Potassium (3.6-5.0) mmol/L Chloride (98-107) mmol/L BUN (9-20) mg/dL Creatinine (0.8-1.5) mg/dL Glucose (75-100) mg/dL POC Glucose 68 L 40 L (70-105) Hemoglobin A1c 10.6 H (4-6) % 11/29/16 11/29/16 11/29/16 Range/Units 06:33 08:37 08:37 Hgb 10.2 L (11.8-15.2) gm/dl Hct 30.9 L (35.5-45.6) % RDW 16.0 H (13.2-15.2) % Plt Count 104 L (140-440) K/mm3 Lymph % (Auto) 2.4 L (13.4-35.0) % [place] % (Auto) 8.5 H (0.0-7.3) % Lymph # 0.2 L (1.2-5.4) K/mm3 [place] # 0.9 H (0.0-0.8) K/mm3 Seg Neutrophils % 89.0 H (40.0-70.0) % Seg Neutrophils # 9.2 H (1.8-7.7) K/mm3 PT (12.2-14.9) Sec. INR (0.87-1.13) APTT (24.2-36.6) Sec. Potassium (3.6-5.0) mmol/L Chloride (98-107) mmol/L BUN 95 H (9-20) mg/dL Creatinine 2.9 H (0.8-1.5) mg/dL Glucose (75-100) mg/dL POC Glucose 57 L (70-105) Hemoglobin A1c (4-6) % 11/29/16 Range/Units 11:41 Hgb (11.8-15.2) gm/dl Hct (35.5-45.6) % RDW (13.2-15.2) % Plt Count (140-440) K/mm3 Lymph % (Auto) (13.4-35.0) % [place] % (Auto) (0.0-7.3) % Lymph # (1.2-5.4) K/mm3 [place] # (0.0-0.8) K/mm3 Seg Neutrophils % (40.0-70.0) % Seg Neutrophils # (1.8-7.7) K/mm3 PT (12.2-14.9) Sec. INR (0.87-1.13) APTT (24.2-36.6) Sec. Potassium (3.6-5.0) mmol/L Chloride (98-107) mmol/L BUN (9-20) mg/dL Creatinine (0.8-1.5) mg/dL Glucose (75-100) mg/dL POC Glucose 48 L (70-105) Hemoglobin A1c (4-6) % Lower Extremity Arterial Studies - non-occlusive disease bilaterally; no significant stenoses Assessment and Plan - Patient Problems (1) Wound infection Current Visit: Yes Status: Acute Plan to address problem: 1. Will culture wounds to help guide antimicrobial treatment. Yield may be limited with antibiotics. 2. Debridement is recommended. 3. No significant vascular disease seen on duplex studies. 4. Empiric Vancomycin and Unasyn are ideal for now.
--- NOTE | 2016-11-29 13:56 | Progress Note ---
Assessment and Plan Assessment and plan: Bilateral DM leg ulcer DM Acute on chronic kidney disease Hypertension CAD Chronic systolic heart failure - Patient is on Unasyn and vancomycin, ID consulted - Vascular surgery was consulted to evaluated for peripheral vascular disease - Nephrology consult appreciated - Patient is dehydrated, will stop Lasix, started on gentle hydration - Sliding scale insulin - Resume home medications DVT prophylaxis - Heparin Disposition - Continue inpatient care. History Interval history: Patient seen and evaluated this morning, he is complaining bilateral leg ulcers. Hospitalist Physical - Physical exam Narrative exam: Not in cardiopulmonary distress. The patient appeared well nourished and normally developed. Vital signs as documented. Head exam is unremarkable. No scleral icterus . Neck is without jugular venous distension, thyromegaly, or carotid bruits. Lungs are clear to auscultation. Cardiac exam reveals regular rate and Rhythm. First and second heart sounds normal. No murmurs, rubs or gallops. Abdominal exam reveals normal bowel sounds, no masses, no organomegaly and no aortic enlargement. Extremities are nonedematous and both femoral and pedal pulses are normal. 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 No focal weakness. - Constitutional Vitals: Temp Pulse Resp BP Pulse Ox 98.0 F 94 H 16 106/55 96 11/29/16 08:00 11/29/16 08:00 11/29/16 08:49 11/29/16 08:00 11/29/16 08:00 General appearance: Present: no acute distress, well-nourished Results - Labs CBC & Chem 7: 11/29/16 08:37 11/29/16 08:37 Labs: Laboratory Last Values WBC 10.4 K/mm3 (4.5-11.0) 11/29/16 08:37 RBC 3.66 M/mm3 (3.65-5.03) 11/29/16 08:37 Hgb 10.2 gm/dl (11.8-15.2) L 11/29/16 08:37 Hct 30.9 % (35.5-45.6) L 11/29/16 08:37 MCV 84 fl (84-94) 11/29/16 08:37 MCH 28 pg (28-32) 11/29/16 08:37 MCHC 33 % (32-34) 11/29/16 08:37 RDW 16.0 % (13.2-15.2) H 11/29/16 08:37 Plt Count 104 K/mm3 (140-440) L 11/29/16 08:37 Lymph % (Auto) 2.4 % (13.4-35.0) L 11/29/16 08:37 [place] % (Auto) 8.5 % (0.0-7.3) H 11/29/16 08:37 Eos % (Auto) 0.1 % (0.0-4.3) 11/29/16 08:37 Baso % (Auto) 0.0 % (0.0-1.8) 11/29/16 08:37 Lymph # 0.2 K/mm3 (1.2-5.4) L 11/29/16 08:37 [place] # 0.9 K/mm3 (0.0-0.8) H 11/29/16 08:37 Eos # 0.0 K/mm3 (0.0-0.4) 11/29/16 08:37 Baso # 0.0 K/mm3 (0.0-0.1) 11/29/16 08:37 Seg Neutrophils % 89.0 % (40.0-70.0) H 11/29/16 08:37 Seg Neutrophils # 9.2 K/mm3 (1.8-7.7) H 11/29/16 08:37 PT 17.3 Sec. (12.2-14.9) H 11/28/16 16:02 INR 1.42 (0.87-1.13) H 11/28/16 16:02 APTT 38.0 Sec. (24.2-36.6) H 11/28/16 16:02 Sodium 138 mmol/L (137-145) 11/29/16 08:37 Potassium 3.7 mmol/L (3.6-5.0) 11/29/16 08:37 Chloride 101.2 mmol/L (98-107) 11/29/16 08:37 Carbon Dioxide 25 mmol/L (22-30) 11/29/16 08:37 Anion Gap 16 mmol/L 11/29/16 08:37 BUN 95 mg/dL (9-20) H 11/29/16 08:37 Creatinine 2.9 mg/dL (0.8-1.5) H 11/29/16 08:37 Estimated GFR 26 ml/min 11/29/16 08:37 BUN/Creatinine Ratio 32.75 % 11/29/16 08:37 Glucose 82 mg/dL (75-100) 11/29/16 08:37 POC Glucose 48 (70-105) L 11/29/16 11:41 Hemoglobin A1c 10.6 % (4-6) H 11/28/16 16:02 Calcium 8.5 mg/dL (8.4-10.2) 11/29/16 08:37
[2016-11-29] MEDS: NACL 0.45% 1000 ML 1,000 ML IV SCH (14:43)
[2016-11-29] MEDS: RANEXA ER PO SCH (14:45)
[2016-11-29] MEDS: HEPARIN SUB-Q SCH (14:46)
[2016-11-29] MEDS: CARDURA PO SCH (14:56)
[2016-11-29] MEDS: COREG PO SCH (14:56)
[2016-11-29] MEDS: ISORDIL TITRADOSE PO SCH (14:57)
[2016-11-29] MEDS: NORVASC PO SCH (14:57)
[2016-11-29] MEDS ORDERED: PNEUMOVAX 23 IM ONE (14:59)
[2016-11-29] MEDS: LEVEMIR SUB-Q SCH (23:53)
[2016-11-30] MEDS: RANEXA ER PO SCH ×3 (00:04→22:34)
[2016-11-30] MEDS: HEPARIN SUB-Q SCH ×3 (00:05→22:34)
[2016-11-30] MEDS: COREG PO SCH ×3 (00:05→23:19)
[2016-11-30] MEDS: DAKIN'S HALF STRENGTH TP SCH ×4 (04:19→23:25)
[2016-11-30] MEDS: UNASYN/NS 3 GM/100 ML 3 GM/100 ML BAG IV SCH ×2 (07:00→16:51)
[2016-11-30] MEDS: NOVOLOG SUB-Q SCH ×7 (07:46→23:22)
--- NOTE | 2016-11-30 09:34 | Progress Note ---
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 Absent: rub, click - Extremities Extremities: abnormal - Peripheral Assessment Right Foot Edema Type: Pitting Edema Degree: 4+ Skin Temperature: Cool Left Foot Edema Type: Pitting Edema Degree: 4+ Skin Temperature: Warm Peripheral Pulses: abnormal - Peripheral pulses dorsalis pedis Pulse Strength: 1+ (Doppler) - Abdominal General gastrointestinal: Present: soft, non-tender, non-distended, normal bowel sounds Male genitourinary: Present: normal - Integumentary Integumentary: Present: warm, dry - Musculoskeletal Musculoskeletal: gait normal, strength equal bilaterally - Psychiatric Psychiatric: appropriate mood/affect, intact judgment & insight - Neurologic Neurologic: focal deficits - Vital Signs Vital signs: Vital Signs - 12hr 11/29/16 11/30/16 23:11 00:05 Temperature 97.9 F Pulse Rate 74 Pulse Rate [ 84 Left Radial] Respiratory 20 Rate Blood Pressure 140/70 Blood Pressure 101/64 [Left Arm] O2 Sat by Pulse 98 Oximetry - Lab 11/30/16 08:53 11/30/16 08:53 Most recent lab results Calcium 8.5 mg/dL (8.4-10.2) 11/29/16 08:37
[2016-11-30 10:05] LABS: Hematocrit 33.2 % (35.5-45.6); Hemoglobin 10.9 gm/dl (11.8-15.2); Mean Corpuscular HGB Conc 33 % (32-34); Mean Corpuscular Hemoglobin 28 pg (28-32); Mean Corpuscular Volume 86 fl (84-94); Red Blood Count 3.88 M/mm3 (3.65-5.03); Red Cell Distribution Width 16.3 % (13.2-15.2); White Blood Count 10.2 K/mm3 (4.5-11.0)
[2016-11-30 10:06] LABS: Platelet Count 96 K/mm3 (140-440)
[2016-11-30 10:28] LABS: BUN/Creatinine Ratio 33.91; Chloride 99.8 mmol/L (98-107); Potassium 4.3 mmol/L (3.6-5.0)
[2016-11-30 10:41] LABS: Bilirubin,Urine NEG (Negative); Blood,Urine NEG (Negative); Ketones,Urine NEG (Negative); Leukocyte Esterase,Urine TR (Negative); Nitrite,Urine NEG (Negative); Urobilinogen,Urine < 2.0 mg/dL (<2.0)
--- NOTE | 2016-11-30 10:46 | Progress Note ---
Assessment and Plan - Patient Problems (1) Wound infection Current Visit: Yes Status: Acute Plan to address problem: 1. Wound cultures not yet collected. 2. Continue empiric Vancomycin/ Unasyn for now. 3. Local care to wounds with final antibiotic combination and duration based upon any culture yield. Subjective Date of service: 11/30/16 Principal diagnosis: marquis Interval history: Remains stable, afebrile. No new complaints. Objective - Constitutional Vitals: Vital Signs Temp Pulse Resp BP Pulse Ox 98.1 F 84 18 91/55 100 11/30/16 08:00 11/30/16 08:00 11/30/16 08:00 11/30/16 08:00 11/30/16 08:00 Temperature -Last 24 Hours Temperature 98.1 F Temperature 97.9 F Temperature 97.9 F Temperature 97.2 F General appearance: Present: no acute distress - Neck Neck: supple - Respiratory Respiratory: bilateral: CTA - Cardiovascular Rhythm: other (ICD at left chest) Extremity abnormal: other (foul drainage continues from bilateral leg ulcers, no bleeding, no fluctuance) - Gastrointestinal General gastrointestinal: Present: soft, distended - Integumentary Integumentary: no rash - Neurologic Neurologic: no focal deficits, moves all extremities - Psychiatric Psychiatric: appropriate mood/affect - Labs CBC & Chem 7: 11/30/16 08:53 11/30/16 08:53 Labs: Abnormal lab results 11/29/16 11/29/16 11/29/16 Range/Units 11:41 12:48 15:44 Hgb (11.8-15.2) gm/dl Hct (35.5-45.6) % RDW (13.2-15.2) % Plt Count (140-440) K/mm3 BUN (9-20) mg/dL Creatinine (0.8-1.5) mg/dL Glucose (75-100) mg/dL POC Glucose 48 L 143 H 138 H (70-105) 11/29/16 11/29/16 11/30/16 Range/Units 21:04 22:26 06:11 Hgb (11.8-15.2) gm/dl Hct (35.5-45.6) % RDW (13.2-15.2) % Plt Count (140-440) K/mm3 BUN (9-20) mg/dL Creatinine (0.8-1.5) mg/dL Glucose (75-100) mg/dL POC Glucose 49 L 165 H 121 H (70-105) 11/30/16 11/30/16 Range/Units 08:53 08:53 Hgb 10.9 L (11.8-15.2) gm/dl Hct 33.2 L (35.5-45.6) % RDW 16.3 H (13.2-15.2) % Plt Count 96 L (140-440) K/mm3 BUN 78 H (9-20) mg/dL Creatinine 2.3 H (0.8-1.5) mg/dL Glucose 139 H (75-100) mg/dL POC Glucose (70-105)
[2016-11-30 10:50] LABS: Calcium 8.3 mg/dL (8.4-10.2)
[2016-11-30 10:51] LABS: Acanthocytes Rare; Anisocytosis 1+; Basophils % (Manual) 0 % (0.0-1.8); Blastocytes % (Manual) 0 %; Burr Cells Few; Elliptocytes Few; Eosinophils % (Manual) 0 % (0.0-4.3); Ovalocytes Few
[2016-11-30 10:52] LABS: Diff Status Complete; Giant Platelets Few; Platelet Estimate Appears Decreased; Target Cells Few
[2016-11-30 10:52] LABS: RBC,Urine < 1.0 /HPF (0.0-6.0)
--- NOTE | 2016-11-30 11:03 | Ultrasound Report ---
Renal ultrasound: Renal failure. The right renal length is 9.9 cm. There is a single cortical cyst measuring 17 mm. The parenchyma is mildly echogenic. No hydronephrosis nor solid lesion is identified. The left kidney measures 10.5 cm in length however the inferior pole is not optimally visualized. The kidney is echogenic but not otherwise remarkable. Both ascites and pleural effusions are identified. Imaging of the urinary bladder is unremarkable. The renal findings are not significantly changed compared to prior study in December 2014. Impressions: Echogenic kidneys consistent with medical renal disease. Stable right renal cyst.
[2016-11-30] MEDS: NORVASC PO SCH (11:54)
--- NOTE | 2016-11-30 12:30 | Progress Note ---
Assessment and Plan Assessment and plan: Bilateral DM leg ulcer DM Acute on chronic kidney disease Hypertension CAD Chronic systolic heart failure - Patient is on Unasyn and vancomycin, ID consulted - Vascular surgery was consulted for debridement - Doppler ultrasound of the legs is normal - Creatinine is trending down - Nephrology consult appreciated - Sliding scale insulin - Resume home medications DVT prophylaxis - Heparin Disposition - Continue inpatient care. History Interval history: Patient seen and evaluated this morning, patient denied pain in his legs. Hospitalist Physical - Physical exam Narrative exam: Not in cardiopulmonary distress. The patient appeared well nourished and normally developed. Vital signs as documented. Head exam is unremarkable. No scleral icterus . Neck is without jugular venous distension, thyromegaly, or carotid bruits. Lungs are clear to auscultation. Cardiac exam reveals regular rate and Rhythm. First and second heart sounds normal. No murmurs, rubs or gallops. Abdominal exam reveals normal bowel sounds, no masses, no organomegaly and no aortic enlargement. Extremities significant for bilateral leg and so around the calf area with offensive discharge. OIL PROGRAM COMPLIANCE SPECIALIST: Alert and oriented 3. No focal weakness. - Constitutional Vitals: Temp Pulse Resp BP Pulse Ox 98.1 F 84 18 85/53 100 11/30/16 08:00 11/30/16 08:00 11/30/16 08:00 11/30/16 11:54 11/30/16 08:00 General appearance: Present: no acute distress Results - Labs CBC & Chem 7: 11/30/16 08:53 11/30/16 08:53 Labs: Laboratory Last Values WBC 10.2 K/mm3 (4.5-11.0) 11/30/16 08:53 RBC 3.88 M/mm3 (3.65-5.03) 11/30/16 08:53 Hgb 10.9 gm/dl (11.8-15.2) L 11/30/16 08:53 Hct 33.2 % (35.5-45.6) L 11/30/16 08:53 MCV 86 fl (84-94) 11/30/16 08:53 MCH 28 pg (28-32) 11/30/16 08:53 MCHC 33 % (32-34) 11/30/16 08:53 RDW 16.3 % (13.2-15.2) H 11/30/16 08:53 Plt Count 96 K/mm3 (140-440) L 11/30/16 08:53 Lymph % (Auto) 2.4 % (13.4-35.0) L 11/29/16 08:37 [place] % (Auto) 8.5 % (0.0-7.3) H 11/29/16 08:37 Eos % (Auto) 0.1 % (0.0-4.3) 11/29/16 08:37 Baso % (Auto) 0.0 % (0.0-1.8) 11/29/16 08:37 Lymph # 0.2 K/mm3 (1.2-5.4) L 11/29/16 08:37 [place] # 0.9 K/mm3 (0.0-0.8) H 11/29/16 08:37 Eos # 0.0 K/mm3 (0.0-0.4) 11/29/16 08:37 Baso # 0.0 K/mm3 (0.0-0.1) 11/29/16 08:37 Add Manual Diff Complete 11/30/16 08:53 Total Counted 100 11/30/16 08:53 Seg Neutrophils % Chaser Apprentice 11/30/16 08:53 Seg Neuts % (Manual) 91.0 % (40.0-70.0) H 11/30/16 08:53 Band Neutrophils % 2.0 % 11/30/16 08:53 Lymphocytes % (Manual) 2.0 % (13.4-35.0) L 11/30/16 08:53 Reactive Lymphs % (Man) 0 % 11/30/16 08:53 Monocytes % (Manual) 5.0 % (0.0-7.3) 11/30/16 08:53 Eosinophils % (Manual) 0 % (0.0-4.3) 11/30/16 08:53 Basophils % (Manual) 0 % (0.0-1.8) 11/30/16 08:53 Metamyelocytes % 0 % 11/30/16 08:53 Myelocytes % 0 % 11/30/16 08:53 Promyelocytes % 0 % 11/30/16 08:53 Blast Cells % 0 % 11/30/16 08:53 Nucleated RBC % Not Reportable 11/30/16 08:53 Seg Neutrophils # 9.2 K/mm3 (1.8-7.7) H 11/29/16 08:37 Seg Neutrophils # Man 9.3 K/mm3 (1.8-7.7) H 11/30/16 08:53 Band Neutrophils # 0.2 K/mm3 11/30/16 08:53 Lymphocytes # (Manual) 0.2 K/mm3 (1.2-5.4) L 11/30/16 08:53 Abs React Lymphs (Man) 0.0 K/mm3 11/30/16 08:53 Monocytes # (Manual) 0.5 K/mm3 (0.0-0.8) 11/30/16 08:53 Eosinophils # (Manual) 0.0 K/mm3 (0.0-0.4) 11/30/16 08:53 Basophils # (Manual) 0.0 K/mm3 (0.0-0.1) 11/30/16 08:53 Metamyelocytes # 0.0 K/mm3 11/30/16 08:53 Myelocytes # 0.0 K/mm3 11/30/16 08:53 Promyelocytes # 0.0 K/mm3 11/30/16 08:53 Blast Cells # 0.0 K/mm3 11/30/16 08:53 WBC Morphology Not Reportable 11/30/16 08:53 Hypersegmented Neuts Not Reportable 11/30/16 08:53 Hyposegmented Neuts Not Reportable 11/30/16 08:53 Hypogranular Neuts Not Reportable 11/30/16 08:53 Smudge Cells Not Reportable 11/30/16 08:53 Toxic Granulation Not Reportable 11/30/16 08:53 Toxic Vacuolation Not Reportable 11/30/16 08:53 Dohle Bodies Not Reportable 11/30/16 08:53 Pelger-Huet Anomaly Not Reportable 11/30/16 08:53 Demetra Rods Not Reportable 11/30/16 08:53 Platelet Estimate Appears decreased 11/30/16 08:53 Clumped Platelets Not Reportable 11/30/16 08:53 Plt Clumps, EDTA Not Reportable 11/30/16 08:53 Large Platelets Not Reportable 11/30/16 08:53 Giant Platelets Few 11/30/16 08:53 Platelet Satelliting Not Reportable 11/30/16 08:53 Plt Morphology Comment Not Reportable 11/30/16 08:53 RBC Morphology Not Reportable 11/30/16 08:53 Dimorphic RBCs Not Reportable 11/30/16 08:53 Polychromasia Not Reportable 11/30/16 08:53 Hypochromasia Not Reportable 11/30/16 08:53 Poikilocytosis Not Reportable 11/30/16 08:53 Anisocytosis 1+ 11/30/16 08:53 Microcytosis Not Reportable 11/30/16 08:53 Macrocytosis Not Reportable 11/30/16 08:53 Spherocytes Not Reportable 11/30/16 08:53 Pappenheimer Bodies Not Reportable 11/30/16 08:53 Sickle Cells Not Reportable 11/30/16 08:53 Target Cells Few 11/30/16 08:53 Tear Drop Cells Not Reportable 11/30/16 08:53 Ovalocytes Few 11/30/16 08:53 Helmet Cells Not Reportable 11/30/16 08:53 [place] Bodies Not Reportable 11/30/16 08:53 Sandwich Rings Not Reportable 11/30/16 08:53 [place] Cells Few 11/30/16 08:53 Bite Cells Not Reportable 11/30/16 08:53 Crenated Cell Not Reportable 11/30/16 08:53 Elliptocytes Few 11/30/16 08:53 Acanthocytes (Spur) Rare 11/30/16 08:53 Rouleaux Not Reportable 11/30/16 08:53 Hemoglobin C Crystals Not Reportable 11/30/16 08:53 Schistocytes Not Reportable 11/30/16 08:53 Malaria parasites Not Reportable 11/30/16 08:53 [place] Bodies Not Reportable 11/30/16 08:53 Hem Pathologist Commnt No 11/30/16 08:53 PT 17.3 Sec. (12.2-14.9) H 11/28/16 16:02 INR 1.42 (0.87-1.13) H 11/28/16 16:02 APTT 38.0 Sec. (24.2-36.6) H 11/28/16 16:02 Sodium 138 mmol/L (137-145) 11/30/16 08:53 Potassium 4.3 mmol/L (3.6-5.0) 11/30/16 08:53 Chloride 99.8 mmol/L (98-107) 11/30/16 08:53 Carbon Dioxide 26 mmol/L (22-30) 11/30/16 08:53 Anion Gap 17 mmol/L 11/30/16 08:53 BUN 78 mg/dL (9-20) H 11/30/16 08:53 Creatinine 2.3 mg/dL (0.8-1.5) H 11/30/16 08:53 Estimated GFR 34 ml/min 11/30/16 08:53 BUN/Creatinine Ratio 33.91 % 11/30/16 08:53 Glucose 139 mg/dL (75-100) H 11/30/16 08:53 POC Glucose 169 (70-105) H 11/30/16 11:23 Hemoglobin A1c 10.6 % (4-6) H 11/28/16 16:02 Calcium 8.3 mg/dL (8.4-10.2) L 11/30/16 08:53 Urine Color Yellow (Yellow) 11/30/16 10:00 Urine Turbidity Clear (Clear) 11/30/16 10:00 Urine pH 6.0 (5.0-7.0) 11/30/16 10:00 Ur Specific [place] 1.018 (1.003-1.030) 11/30/16 10:00 Urine Protein 30 mg/dl mg/dL (Negative) 11/30/16 10:00 Urine Glucose (UA) Neg mg/dL (Negative) 11/30/16 10:00 Urine Ketones Neg mg/dL (Negative) 11/30/16 10:00 Urine Blood Neg (Negative) 11/30/16 10:00 Urine Nitrite Neg (Negative) 11/30/16 10:00 Urine Bilirubin Neg (Negative) 11/30/16 10:00 Urine Urobilinogen < 2.0 mg/dL (<2.0) 11/30/16 10:00 Ur Leukocyte Esterase Tr (Negative) 11/30/16 10:00 Urine WBC (Auto) 2.0 /HPF (0.0-6.0) 11/30/16 10:00 Urine RBC (Auto) < 1.0 /HPF (0.0-6.0) 11/30/16 10:00 U Epithel Cells (Auto) < 1.0 /HPF (0-13.0) 11/30/16 10:00 Urine Creatinine 78.6 mg/dL (0.1-20.0) H 11/30/16 10:00 Urine Sodium 10 mEq/L 11/30/16 10:00 Random Vancomycin 7.9 ug/mL (0-40.0) 11/30/16 08:53
[2016-11-30] MEDS: NACL 0.45% 1000 ML 1,000 ML IV SCH (12:32)
[2016-11-30] MEDS ORDERED: VANCOMYCIN 1,250 MG in NACL 0.9% 250ML 250 ML IV ONE (14:00)
[2016-11-30] MEDS ORDERED: NACL 0.9% 500 ML 500 ML IV ONE (15:00)
--- NOTE | 2016-11-30 19:02 | Consultation ---
History of Present Illness - Reason for Consult Consult date: 11/30/16 Bilateral Lower Extremity Wounds - History of Present Illness This patient is a 71-year-old male that was directly admitted from Dr. Grimm's office on 11/28/2016 due to bilateral lower extremity wounds. The patient states the wounds have been there for several months. The patient is able to ambulate very short distances with the use of a walker. He is primarily limited due to severe shortness of breath. He complains of pains at the wound sites, but otherwise denies rest pain or symptoms of claudication. He complains of frequent episodes of lower extremity swelling. The wounds to his right lower extremity started out as a blister following one such episode. A vascular surgery consult was requested to further evaluate. Past History Past Medical History: CAD, diabetes, hypertension, hyperlipidemia, PVD, renal failure (not presently on hemodialysis) Past Surgical History: CABG (1996), Other (AICD placement, back sugery 1996) Social history: lives with family, full code. denies: smoking (quit x20 years, ), alcohol abuse, prescription drug abuse Family history: CAD, cancer, diabetes, hypertension Medications and Allergies Allergies Allergy/AdvReac Type Severity Reaction Status Date / Time lisinopril Allergy Mild Unknown Verified 08/08/14 11:26 pollen extracts AdvReac COUGH,SNEEZ Unverified 11/28/16 13:22 E Home Medications Medication Instructions Recorded Confirmed Last Taken Type Carvedilol [Coreg] 25 mg PO BID 08/21/13 08/08/14 05/29/14 History Doxazosin Mesylate 8 mg PO DAILY 08/21/13 08/08/14 05/29/14 History Insulin Glargine,Hum.rec.anlog 30 unit PO QDAY 08/21/13 08/08/14 05/28/14 History [Lantus Solostar] Isosorbide Dinitrate 30 mg PO DAILY 08/21/13 08/08/14 05/29/14 History Ranolazine [Ranexa] 1,000 mg PO BID 08/21/13 08/08/14 05/29/14 History Atorvastatin Calcium [Lipitor] 40 mg PO DAILY 12/25/13 08/08/14 03/26/14 History 40mg amLODIPine [Norvasc] 5 mg PO DAILY 03/27/14 08/08/14 05/29/14 History Epoetin Shorty [Procrit] 4,000 unit SQ QMONTH 08/08/14 08/08/14 08/04/14 History 4000 units Multivitamin [Multi-Vitamin Daily] 1 tab PO DAILY 08/08/14 08/08/14 Unknown History Albuterol Sulfate [Proventil HFA] 2 puff IH Q4H PRN #1 pump 08/13/14 Unknown Rx Insulin Aspart [NovoLOG 100 5 unit SQ AC #1 vial 08/13/14 Unknown Rx UNITS/ML] Metolazone 5 mg PO DAILY 30 Days 08/13/14 Unknown Rx Active Meds: Active Medications Acetaminophen (Tylenol) 650 mg PO Q4H PRN PRN Reason: Pain MILD(1-3)/Fever >100.5/DANG Last Admin: 11/28/16 18:51 Dose: 650 mg Albuterol (Proventil) 2.5 mg IH Q4HRT PRN PRN Reason: Shortness Of Breath Amlodipine Besylate (Norvasc) 5 mg PO DAILY [facility] Last Admin: 11/30/16 11:54 Dose: Not Given Atorvastatin Calcium (Lipitor) 40 mg PO QHS [facility] Last Admin: 11/30/16 00:04 Dose: 40 mg Bisacodyl (Dulcolax) 10 mg [place] QDAY PRN PRN Reason: Constipation unrelieved by MOM Carvedilol (Coreg) 25 mg PO BID [facility] Last Admin: 11/30/16 11:54 Dose: Not Given Dextrose (D50w (25gm)) 50 ml IV PRN PRN PRN Reason: Hypoglycemia Last Admin: 11/29/16 21:16 Dose: 50 ml Doxazosin Mesylate (Cardura) 8 mg PO QDAY [facility] Last Admin: 11/29/16 14:56 Dose: Not Given Heparin Sodium (Porcine) (Heparin) 5,000 unit SUB-Q Q12HR [facility] Last Admin: 11/30/16 11:35 Dose: 5,000 unit Ampicillin Sodium/Sulbactam Sodium (Unasyn/Ns 3 Gm/100 Ml) 3 gm in 100 mls @ 100 mls/hr IV Q12H [facility] PRN Reason: Protocol Last Admin: 11/30/16 16:51 Dose: 100 mls/hr Sodium Chloride (Nacl 0.45% 1000 Ml) 1,000 mls @ 65 mls/hr IV DIRECT [facility] Last Admin: 11/30/16 12:32 Dose: 65 mls/hr Insulin Aspart (Novolog) 0 units SUB-Q ACHS [facility] PRN Reason: Protocol Last Admin: 11/30/16 14:41 Dose: 2 units Insulin Aspart (Novolog) 8 units SUB-Q AC [facility] Last Admin: 11/30/16 14:42 Dose: 8 units Insulin Detemir (Levemir) 45 units SUB-Q QHS [facility] Last Admin: 11/29/16 23:53 Dose: Not Given Isosorbide Dinitrate (Isordil Titradose) 30 mg PO DAILY [facility] Last Admin: 11/29/16 14:57 Dose: Not Given Morphine Sulfate (Morphine) 1 mg IV Q4H PRN PRN Reason: Pain, Moderate (4-6) Last Admin: 11/29/16 14:48 Dose: 1 mg Ondansetron HCl (Zofran) 4 mg IV Q8H PRN PRN Reason: Nausea And Vomiting Ranolazine (Ranexa Er) 1,000 mg PO BID [facility] Last Admin: 11/30/16 11:34 Dose: 1,000 mg Sodium Hypochlorite (Dakin's Half Strength) 1 applic TP BID [facility] Last Admin: 11/30/16 12:31 Dose: 1 applicatio Vancomycin HCl (Vancomycin Pharmacy To Dose) 1 each IV PKCONSULT [facility] PRN Reason: Protocol Review of Systems All systems: negative Cardiovascular: chest pain (chest tightness for the last 20 minutes), shortness of breath (for the last 20 minutes) Exam - Constitutional Vitals: Temp Pulse Resp BP Pulse Ox 97.8 F 62 18 95/61 100 11/30/16 18:32 11/30/16 18:32 11/30/16 18:32 11/30/16 18:32 11/30/16 18:32 General appearance: Present: no acute distress, cachectic - EENT Eyes: Present: EOM intact ENT: hearing intact - Respiratory Respiratory effort: labored (mildly labored following the initiation of O2 nasal cannula) - Extremities Extremities: no ischemia, pulses intact (palpable DP pulses bilaterally), abnormal (he has bilateral lipodermatosclerosis) Extremity abnormal: ulceration (he has bilateral ulcerations primarily over his posterior lateral calves) - Psychiatric Psychiatric: appropriate mood/affect, no intact judgment & insight (the patient answers questions appropriately although I'm unsure of the reliability of his short-term memory.) - Neurologic Neurologic: no focal deficits Results - Labs CBC & Chem 7: 11/30/16 08:53 11/30/16 08:53 Labs: Abnormal lab results 11/29/16 11/29/16 11/30/16 Range/Units 21:04 22:26 06:11 Hgb (11.8-15.2) gm/dl Hct (35.5-45.6) % RDW (13.2-15.2) % Plt Count (140-440) K/mm3 Seg Neuts % (Manual) (40.0-70.0) % Lymphocytes % (Manual) (13.4-35.0) % Seg Neutrophils # Man (1.8-7.7) K/mm3 Lymphocytes # (Manual) (1.2-5.4) K/mm3 BUN (9-20) mg/dL Creatinine (0.8-1.5) mg/dL Glucose (75-100) mg/dL POC Glucose 49 L 165 H 121 H (70-105) Calcium (8.4-10.2) mg/dL Urine Creatinine (0.1-20.0) mg/dL 11/30/16 11/30/16 11/30/16 Range/Units 08:53 08:53 10:00 Hgb 10.9 L (11.8-15.2) gm/dl Hct 33.2 L (35.5-45.6) % RDW 16.3 H (13.2-15.2) % Plt Count 96 L (140-440) K/mm3 Seg Neuts % (Manual) 91.0 H (40.0-70.0) % Lymphocytes % (Manual) 2.0 L (13.4-35.0) % Seg Neutrophils # Man 9.3 H (1.8-7.7) K/mm3 Lymphocytes # (Manual) 0.2 L (1.2-5.4) K/mm3 BUN 78 H (9-20) mg/dL Creatinine 2.3 H (0.8-1.5) mg/dL Glucose 139 H (75-100) mg/dL POC Glucose (70-105) Calcium 8.3 L (8.4-10.2) mg/dL Urine Creatinine 78.6 H (0.1-20.0) mg/dL 11/30/16 11/30/16 Range/Units 11:23 17:43 Hgb (11.8-15.2) gm/dl Hct (35.5-45.6) % RDW (13.2-15.2) % Plt Count (140-440) K/mm3 Seg Neuts % (Manual) (40.0-70.0) % Lymphocytes % (Manual) (13.4-35.0) % Seg Neutrophils # Man (1.8-7.7) K/mm3 Lymphocytes # (Manual) (1.2-5.4) K/mm3 BUN (9-20) mg/dL Creatinine (0.8-1.5) mg/dL Glucose (75-100) mg/dL POC Glucose 169 H 57 L (70-105) Calcium (8.4-10.2) mg/dL Urine Creatinine (0.1-20.0) mg/dL Assessment and Plan This patient presents with a several month history of bilateral lower extremity wounds. These appear to have developed following episodes of bilateral lower surgery swelling. His arterial duplex suggested he would have adequate blood flow to heal distal wounds. No vascular surgical intervention recommended at this point. Follow up in our office as an outpatient as needed. Recommend ET consult for local wound care, and follow up with the wound care clinic as an outpatient. Antibiotics per the infectious disease service recommendations. Medical optimization. - Patient Problems (1) Bilateral leg ulcer Current Visit: Yes Status: Acute Qualifiers: Non-pressure ulcer stage: N (2) Chest pain Current Visit: Yes Status: Acute Qualifiers: Chest pain type: C Ischemic chest pain type: I (3) Shortness of breath Current Visit: Yes Status: Acute (4) Abnormal EKG Current Visit: Yes Status: Acute (5) Acute on chronic renal failure Current Visit: No Status: Acute Qualifiers: Acute renal failure type: A Chronic kidney disease stage: C (6) CAD (coronary artery disease) Current Visit: No Status: Chronic Qualifiers: Coronary Disease-Associated Artery/Lesion type: C [place] vs. transplanted heart: N Associated angina: A (7) COPD (chronic obstructive pulmonary disease) Current Visit: No Status: Chronic Qualifiers: COPD type: C Chronic bronchitis type: C Emphysema type: E (8) Chronic systolic heart failure Current Visit: No Status: Chronic (9) Diabetes Current Visit: No Status: Chronic Qualifiers: Diabetes mellitus type: D Diabetes mellitus complication status: D Diabetes mellitus complication detail: D Diabetic retinopathy severity: D Proliferative retinopathy type: P Diabetes mellitus macular edema: D Diabetes mellitus manager intermediate insulin use: D Laterality: L Chronic kidney disease stage: C (10) HTN (hypertension) Current Visit: No Status: Chronic Qualifiers: Hypertension type: H
[2016-11-30] MEDS: CARDURA PO SCH (21:03)
[2016-11-30] MEDS: ISORDIL TITRADOSE PO SCH (21:03)
[2016-11-30] MEDS: MORPHINE IV PRN (21:16)
[2016-11-30] MEDS: LEVEMIR SUB-Q SCH (23:20)
[2016-11-30] MEDS ORDERED: LASIX IV ONE (23:39)
[2016-12-01] MEDS: UNASYN/NS 3 GM/100 ML 3 GM/100 ML BAG IV SCH ×2 (00:10→12:32)
[2016-12-01 08:29] LABS: Hematocrit 33.2 % (35.5-45.6); Hemoglobin 10.9 gm/dl (11.8-15.2); Mean Corpuscular HGB Conc 33 % (32-34); Mean Corpuscular Hemoglobin 28 pg (28-32); Mean Corpuscular Volume 84 fl (84-94); Red Blood Count 3.95 M/mm3 (3.65-5.03); Red Cell Distribution Width 16.6 % (13.2-15.2); White Blood Count 12.9 K/mm3 (4.5-11.0)
[2016-12-01 08:39] LABS: Platelet Count 94 K/mm3 (140-440)
[2016-12-01 08:41] LABS: BUN/Creatinine Ratio 33.8; Calcium 8.1 mg/dL (8.4-10.2); Chloride 101.4 mmol/L (98-107)
--- NOTE | 2016-12-01 09:19 | XRay Report ---
PORTABLE CHEST INDICATION: Difficulty breathing. COMPARISON: 11/17/2016 FINDINGS: Portable, frontal chest radiograph suggests slight increased hazy bronchovascular prominence centrally/peribronchial thickening/congestion. Cardiomegaly again noted as also post CABG changes and left tripolar AICD with dual-chamber leads. Superior most sternotomy wire again noted fractured. No large pleural effusions. Stable demineralized bones with few degenerative changes. CONCLUSION: Slight/early pulmonary vascular congestion suspected radiographically with stable cardiomegaly and various other findings, as above. Please correlate. Thank you for the opportunity to participate in this patient's care.
[2016-12-01] MEDS: NOVOLOG SUB-Q SCH ×5 (09:48→22:00)
[2016-12-01 09:53] LABS: Anisocytosis 1+; Basophils % (Manual) 0 % (0.0-1.8); Blastocytes % (Manual) 0 %; Eosinophils % (Manual) 0 % (0.0-4.3)
[2016-12-01 09:54] LABS: Acanthocytes Rare; Burr Cells Few; Large Platelets Few; Ovalocytes Few; Schistocytes Rare; Target Cells Few
[2016-12-01 09:55] LABS: Diff Status Complete; Platelet Estimate Consistent w Auto
--- NOTE | 2016-12-01 11:13 | Progress Note ---
Assessment and Plan Impression: * TREMAINE on CKD stage 4 * Foot/leg ulcers * HTN * DM type 2 * CAD * PVD * COPD Plan: * strict i/os * iv abx for DM ulcers * follow up renal us/UA noted * dose meds crcl 20ml/min * no indication for grain receiver today * stopped diuretics * gentle ivfs * avoid nephrotoxins * cr slightly better today, no need for TABLE GAMES DEALER * pt to eval. wound care, dc planning * ok to dc from renal standpoint Subjective Date of service: 12/01/16 Principal diagnosis: tremaine Interval history: resting well in bed today Objective - Exam Narrative Exam: General appearance: Present: no acute distress, well-nourished - EENT Eyes: Present: PERRL ENT: hearing intact, clear oral mucosa - Neck Neck: Present: supple, normal ROM - Respiratory Respiratory effort: normal Respiratory: bilateral: CTA - Cardiovascular Rhythm: regular Heart Sounds: Present: S1 & S2. Absent: rub, click - Extremities Extremities: abnormal - Peripheral Assessment Right Foot Edema Type: Pitting Edema Degree: 4+ Skin Temperature: Cool Left Foot Edema Type: Pitting Edema Degree: 4+ Skin Temperature: Warm Peripheral Pulses: abnormal - Peripheral pulses dorsalis pedis Pulse Strength: 1+ (Doppler) - Abdominal General gastrointestinal: Present: soft, non-tender, non-distended, normal bowel sounds Male genitourinary: Present: normal - Integumentary Integumentary: Present: warm, dry - Musculoskeletal Musculoskeletal: gait normal, strength equal bilaterally - Psychiatric Psychiatric: appropriate mood/affect, intact judgment & insight - Neurologic Neurologic: focal deficits - Vital Signs Vital signs: Vital Signs - 12hr 11/30/16 12/01/16 12/01/16 23:19 04:17 07:00 Temperature 97.7 F Pulse Rate 108 H 89 81 Respiratory 18 18 Rate Blood Pressure 111/57 Blood Pressure 155/81 [Right] O2 Sat by Pulse 96 100 Oximetry - Lab 12/01/16 07:39 12/01/16 07:39 Most recent lab results Calcium 8.1 mg/dL (8.4-10.2) L 12/01/16 07:39 Urine Creatinine 78.6 mg/dL (0.1-20.0) H 11/30/16 10:00 Urine Sodium 10 mEq/L 11/30/16 10:00
[2016-12-01] MEDS: CARDURA PO SCH (12:23)
[2016-12-01] MEDS: COREG PO SCH ×2 (12:24→21:36)
[2016-12-01] MEDS: ISORDIL TITRADOSE PO SCH (12:25)
[2016-12-01] MEDS: NORVASC PO SCH (12:26)
[2016-12-01] MEDS: HEPARIN SUB-Q SCH ×2 (12:28→21:28)
[2016-12-01] MEDS: RANEXA ER PO SCH ×2 (12:31→21:28)
[2016-12-01] MEDS: DAKIN'S HALF STRENGTH TP SCH ×2 (12:31→22:00)
[2016-12-01] MEDS: NACL 0.45% 1000 ML 1,000 ML IV SCH (12:57)
--- NOTE | 2016-12-01 14:10 | Progress Note ---
Assessment and Plan Assessment and plan: Bilateral DM leg ulcer DM Acute on chronic kidney disease Hypertension CAD Chronic systolic heart failure - Patient is on Unasyn and vancomycin, ID consulted - Vascular surgery was consulted for wound debridement - Doppler ultrasound of the legs is normal - Creatinine is trending down - Nephrology consult appreciated - Sliding scale insulin - Resume home medications DVT prophylaxis - Heparin Disposition - possible D/C tomorrow after the wound culture result and adjusting medications. History Interval history: Patient seen and evaluated this morning, patient denied pain in his legs. Patient has shortness of breath last night and is on CPAP which he uses at home. Hospitalist Physical - Physical exam Narrative exam: Not in cardiopulmonary distress. The patient appeared well nourished and normally developed. Vital signs as documented. Head exam is unremarkable. No scleral icterus . Neck is without jugular venous distension, thyromegaly, or carotid bruits. Lungs are clear to auscultation. Cardiac exam reveals regular rate and Rhythm. First and second heart sounds normal. No murmurs, rubs or gallops. Abdominal exam reveals normal bowel sounds, no masses, no organomegaly and no aortic enlargement. Extremities significant for bilateral leg and so around the calf area with offensive discharge. 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 No focal weakness. - Constitutional Vitals: Temp Pulse Resp BP Pulse Ox 97.7 F 86 30 H 104/57 99 12/01/16 07:00 12/01/16 12:26 12/01/16 08:00 12/01/16 12:26 12/01/16 10:00 General appearance: Present: no acute distress, cachectic Results - Labs CBC & Chem 7: 12/01/16 07:39 12/01/16 07:39 Labs: Laboratory Last Values WBC 12.9 K/mm3 (4.5-11.0) H 12/01/16 07:39 RBC 3.95 M/mm3 (3.65-5.03) 12/01/16 07:39 Hgb 10.9 gm/dl (11.8-15.2) L 12/01/16 07:39 Hct 33.2 % (35.5-45.6) L 12/01/16 07:39 MCV 84 fl (84-94) 12/01/16 07:39 MCH 28 pg (28-32) 12/01/16 07:39 MCHC 33 % (32-34) 12/01/16 07:39 RDW 16.6 % (13.2-15.2) H 12/01/16 07:39 Plt Count 94 K/mm3 (140-440) L 12/01/16 07:39 Lymph % (Auto) 2.4 % (13.4-35.0) L 11/29/16 08:37 [place] % (Auto) 8.5 % (0.0-7.3) H 11/29/16 08:37 Eos % (Auto) 0.1 % (0.0-4.3) 11/29/16 08:37 Baso % (Auto) 0.0 % (0.0-1.8) 11/29/16 08:37 Lymph # 0.2 K/mm3 (1.2-5.4) L 11/29/16 08:37 [place] # 0.9 K/mm3 (0.0-0.8) H 11/29/16 08:37 Eos # 0.0 K/mm3 (0.0-0.4) 11/29/16 08:37 Baso # 0.0 K/mm3 (0.0-0.1) 11/29/16 08:37 Add Manual Diff Complete 12/01/16 07:39 Total Counted 100 12/01/16 07:39 Seg Neutrophils % Case Loader Operator 12/01/16 07:39 Seg Neuts % (Manual) 98.0 % (40.0-70.0) H 12/01/16 07:39 Band Neutrophils % 0 % 12/01/16 07:39 Lymphocytes % (Manual) 0 % (13.4-35.0) L 12/01/16 07:39 Reactive Lymphs % (Man) 0 % 12/01/16 07:39 Monocytes % (Manual) 2.0 % (0.0-7.3) 12/01/16 07:39 Eosinophils % (Manual) 0 % (0.0-4.3) 12/01/16 07:39 Basophils % (Manual) 0 % (0.0-1.8) 12/01/16 07:39 Metamyelocytes % 0 % 12/01/16 07:39 Myelocytes % 0 % 12/01/16 07:39 Promyelocytes % 0 % 12/01/16 07:39 Blast Cells % 0 % 12/01/16 07:39 Nucleated RBC % Not Reportable 12/01/16 07:39 Seg Neutrophils # 9.2 K/mm3 (1.8-7.7) H 11/29/16 08:37 Seg Neutrophils # Man 12.6 K/mm3 (1.8-7.7) H 12/01/16 07:39 Band Neutrophils # 0.0 K/mm3 12/01/16 07:39 Lymphocytes # (Manual) 0.0 K/mm3 (1.2-5.4) L 12/01/16 07:39 Abs React Lymphs (Man) 0.0 K/mm3 12/01/16 07:39 Monocytes # (Manual) 0.3 K/mm3 (0.0-0.8) 12/01/16 07:39 Eosinophils # (Manual) 0.0 K/mm3 (0.0-0.4) 12/01/16 07:39 Basophils # (Manual) 0.0 K/mm3 (0.0-0.1) 12/01/16 07:39 Metamyelocytes # 0.0 K/mm3 12/01/16 07:39 Myelocytes # 0.0 K/mm3 12/01/16 07:39 Promyelocytes # 0.0 K/mm3 12/01/16 07:39 Blast Cells # 0.0 K/mm3 12/01/16 07:39 WBC Morphology Not Reportable 12/01/16 07:39 Hypersegmented Neuts Not Reportable 12/01/16 07:39 Hyposegmented Neuts Not Reportable 12/01/16 07:39 Hypogranular Neuts Not Reportable 12/01/16 07:39 Smudge Cells Not Reportable 12/01/16 07:39 Toxic Granulation Not Reportable 12/01/16 07:39 Toxic Vacuolation Not Reportable 12/01/16 07:39 Dohle Bodies Not Reportable 12/01/16 07:39 Pelger-Huet Anomaly Not Reportable 12/01/16 07:39 Demetra Rods Not Reportable 12/01/16 07:39 Platelet Estimate Consistent w auto 12/01/16 07:39 Clumped Platelets Not Reportable 12/01/16 07:39 Plt Clumps, EDTA Not Reportable 12/01/16 07:39 Large Platelets Few 12/01/16 07:39 Giant Platelets Not Reportable 12/01/16 07:39 Platelet Satelliting Not Reportable 12/01/16 07:39 Plt Morphology Comment Not Reportable 12/01/16 07:39 RBC Morphology Not Reportable 12/01/16 07:39 Dimorphic RBCs Not Reportable 12/01/16 07:39 Polychromasia Not Reportable 12/01/16 07:39 Hypochromasia Not Reportable 12/01/16 07:39 Poikilocytosis Not Reportable 12/01/16 07:39 Anisocytosis 1+ 12/01/16 07:39 Microcytosis Not Reportable 12/01/16 07:39 Macrocytosis Not Reportable 12/01/16 07:39 Spherocytes Not Reportable 12/01/16 07:39 Pappenheimer Bodies Not Reportable 12/01/16 07:39 Sickle Cells Not Reportable 12/01/16 07:39 Target Cells Few 12/01/16 07:39 Tear Drop Cells Not Reportable 12/01/16 07:39 Ovalocytes Few 12/01/16 07:39 Helmet Cells Not Reportable 12/01/16 07:39 Don-[place]lim[place] Bodies Not Reportable 12/01/16 07:39 [place] Rings Not Reportable 12/01/16 07:39 [place] Cells Few 12/01/16 07:39 Bite Cells Not Reportable 12/01/16 07:39 Crenated Cell Not Reportable 12/01/16 07:39 Elliptocytes Not Reportable 12/01/16 07:39 Acanthocytes (Spur) Rare 12/01/16 07:39 Rouleaux Not Reportable 12/01/16 07:39 Hemoglobin C Crystals Not Reportable 12/01/16 07:39 Schistocytes Rare 12/01/16 07:39 Malaria parasites Not Reportable 12/01/16 07:39 Romeo Bodies Not Reportable 12/01/16 07:39 Hem Pathologist Commnt No 12/01/16 07:39 PT 17.3 Sec. (12.2-14.9) H 11/28/16 16:02 INR 1.42 (0.87-1.13) H 11/28/16 16:02 APTT 38.0 Sec. (24.2-36.6) H 11/28/16 16:02 Sodium 138 mmol/L (137-145) 12/01/16 07:39 Potassium 4.0 mmol/L (3.6-5.0) 12/01/16 07:39 Chloride 101.4 mmol/L (98-107) 12/01/16 07:39 Carbon Dioxide 23 mmol/L (22-30) 12/01/16 07:39 Anion Gap 18 mmol/L 12/01/16 07:39 BUN 71 mg/dL (9-20) H 12/01/16 07:39 Creatinine 2.1 mg/dL (0.8-1.5) H 12/01/16 07:39 Estimated GFR 38 ml/min 12/01/16 07:39 BUN/Creatinine Ratio 33.80 % 12/01/16 07:39 Glucose 78 mg/dL (75-100) 12/01/16 07:39 POC Glucose 193 (70-105) H 12/01/16 11:48 Hemoglobin A1c 10.6 % (4-6) H 11/28/16 16:02 Calcium 8.1 mg/dL (8.4-10.2) L 12/01/16 07:39 Troponin T 0.033 ng/mL (0.00-0.029) H 11/30/16 20:37 Triglycerides 72 mg/dL (2-149) 11/30/16 20:37 Cholesterol 132 mg/dL (50-199) 11/30/16 20:37 LDL Cholesterol Direct 82 mg/dL (50-130) 11/30/16 20:37 HDL Cholesterol 36 mg/dL (40-59) L 11/30/16 20:37 Cholesterol/HDL Ratio 3.66 % 11/30/16 20:37 Urine Color Yellow (Yellow) 11/30/16 10:00 Urine Turbidity Clear (Clear) 11/30/16 10:00 Urine pH 6.0 (5.0-7.0) 11/30/16 10:00 Ur Specific [place] 1.018 (1.003-1.030) 11/30/16 10:00 Urine Protein 30 mg/dl mg/dL (Negative) 11/30/16 10:00 Urine Glucose (UA) Neg mg/dL (Negative) 11/30/16 10:00 Urine Ketones Neg mg/dL (Negative) 11/30/16 10:00 Urine Blood Neg (Negative) 11/30/16 10:00 Urine Nitrite Neg (Negative) 11/30/16 10:00 Urine Bilirubin Neg (Negative) 11/30/16 10:00 Urine Urobilinogen < 2.0 mg/dL (<2.0) 11/30/16 10:00 Ur Leukocyte Esterase Tr (Negative) 11/30/16 10:00 Urine WBC (Auto) 2.0 /HPF (0.0-6.0) 11/30/16 10:00 Urine RBC (Auto) < 1.0 /HPF (0.0-6.0) 11/30/16 10:00 U Epithel Cells (Auto) < 1.0 /HPF (0-13.0) 11/30/16 10:00 Urine Eosinophils None seen (None Seen) 11/30/16 10:00 Urine Creatinine 78.6 mg/dL (0.1-20.0) H 11/30/16 10:00 Urine Sodium 10 mEq/L 11/30/16 10:00 Random Vancomycin 7.9 ug/mL (0-40.0) 11/30/16 08:53
--- NOTE | 2016-12-01 16:34 | Vascular Lab Report ---
LOWER EXTREMITY ARTERIAL PHYSIOLOGIC STUDY: REASON FOR EXAM: Peripheral arterial disease. COMMENTS ON THE RIGHT: Ankle brachial index is 0.85. This value is mildly decreased. Toe brachial index is 0.58. This value is normal. Wound healing is likely. Pulse volume recording at the level of the ankle is abnormal. Exercise testing was not done. COMMENTS ON THE LEFT: Ankle brachial index is 1.08. This value is normal. Toe brachial index is 0.74. This value is normal. Wound healing is likely. Pulse volume recording at the level of the ankle is normal. Exercise testing was not done. IMPRESSION: RIGHT: Mild peripheral vascular disease LEFT:No hemodynamically significant arterial disease.
[2016-12-01] MEDS: VANCOMYCIN/NS 1 GM/250 ML 1 GM/250 ML BAG IV SCH (17:34)
[2016-12-01] MEDS: LEVEMIR SUB-Q SCH (21:27)
[2016-12-02] MEDS: UNASYN/NS 3 GM/100 ML 3 GM/100 ML BAG IV SCH ×2 (01:12→16:07)
[2016-12-02] MEDS: D50W (25GM) IV PRN ×2 (06:20→12:30)
[2016-12-02] MEDS ORDERED: LEVEMIR SUB-Q SCH (08:02)
--- NOTE | 2016-12-02 08:21 | Progress Note ---
Assessment and Plan - Patient Problems (1) Wound infection Current Visit: Yes Status: Acute Plan to address problem: 1. Continue Vancomycin and Unasyn pending final culture data. 2. I anticipate an adequate oral combination of antibiotics. IV antibiotics may not expected to be manageable as an outpatient. 3. Wound care daily. Subjective Date of service: 12/02/16 Principal diagnosis: bilateral leg wounds; TREMAINE Interval history: No new complaints. Objective - Constitutional Vitals: Vital Signs Temp Pulse Resp BP Pulse Ox 98.2 F 108 H 18 93/54 98 12/02/16 00:00 12/02/16 00:00 12/02/16 00:00 12/02/16 00:00 12/02/16 00:00 Temperature -Last 24 Hours Temperature 98.2 F Temperature 98.1 F General appearance: Present: no acute distress - EENT ENT: clear oral mucosa - Respiratory Respiratory effort: normal Respiratory: bilateral: CTA - Cardiovascular Rhythm: irregularly irregular Extremity abnormal: other (much improved purulent drainage and odor from bilateral leg wounds; wounds have a clean base) - Gastrointestinal General gastrointestinal: Present: soft, non-tender, non-distended - Integumentary Integumentary: clear, no rash - Neurologic Neurologic: moves all extremities - Psychiatric Psychiatric: appropriate mood/affect - Labs CBC & Chem 7: 12/02/16 07:48 12/02/16 07:48 Labs: Abnormal lab results 12/01/16 12/01/16 12/01/16 Range/Units 07:39 07:39 11:48 WBC 12.9 H (4.5-11.0) K/mm3 Hgb 10.9 L (11.8-15.2) gm/dl Hct 33.2 L (35.5-45.6) % RDW 16.6 H (13.2-15.2) % Plt Count 94 L (140-440) K/mm3 Seg Neuts % (Manual) 98.0 H (40.0-70.0) % Lymphocytes % (Manual) 0 L (13.4-35.0) % Seg Neutrophils # Man 12.6 H (1.8-7.7) K/mm3 Lymphocytes # (Manual) 0.0 L (1.2-5.4) K/mm3 BUN 71 H (9-20) mg/dL Creatinine 2.1 H (0.8-1.5) mg/dL POC Glucose 193 H (70-105) Calcium 8.1 L (8.4-10.2) mg/dL 12/01/16 12/01/16 12/02/16 Range/Units 17:02 21:17 06:05 WBC (4.5-11.0) K/mm3 Hgb (11.8-15.2) gm/dl Hct (35.5-45.6) % RDW (13.2-15.2) % Plt Count (140-440) K/mm3 Seg Neuts % (Manual) (40.0-70.0) % Lymphocytes % (Manual) (13.4-35.0) % Seg Neutrophils # Man (1.8-7.7) K/mm3 Lymphocytes # (Manual) (1.2-5.4) K/mm3 BUN (9-20) mg/dL Creatinine (0.8-1.5) mg/dL POC Glucose 170 H 156 H < 40 L (70-105) Calcium (8.4-10.2) mg/dL 12/02/16 12/02/16 Range/Units 06:34 06:41 WBC (4.5-11.0) K/mm3 Hgb (11.8-15.2) gm/dl Hct (35.5-45.6) % RDW (13.2-15.2) % Plt Count (140-440) K/mm3 Seg Neuts % (Manual) (40.0-70.0) % Lymphocytes % (Manual) (13.4-35.0) % Seg Neutrophils # Man (1.8-7.7) K/mm3 Lymphocytes # (Manual) (1.2-5.4) K/mm3 BUN (9-20) mg/dL Creatinine (0.8-1.5) mg/dL POC Glucose 141 H 124 H (70-105) Calcium (8.4-10.2) mg/dL Microbiology 11/29/16 14:55 Leg - Left Wound Culture - Preliminary Gram Negative Charles 11/30/16 16:15 Leg - Right Wound Culture - Preliminary Gram Negative Charles Gram Negative Charles#2 Gram Negative Charles#3 Gram Negative Charles#4
[2016-12-02 09:25] LABS: BUN/Creatinine Ratio 27.77; Calcium 7.9 mg/dL (8.4-10.2); Potassium 3.8 mmol/L (3.6-5.0)
[2016-12-02 09:47] LABS: Hematocrit 31.4 % (35.5-45.6); Hemoglobin 10.2 gm/dl (11.8-15.2); Mean Corpuscular HGB Conc 33 % (32-34); Mean Corpuscular Hemoglobin 27 pg (28-32); Mean Corpuscular Volume 84 fl (84-94); Red Blood Count 3.73 M/mm3 (3.65-5.03); Red Cell Distribution Width 16.3 % (13.2-15.2); White Blood Count 10.2 K/mm3 (4.5-11.0)
[2016-12-02 09:50] LABS: Platelet Count 89 K/mm3 (140-440)
[2016-12-02] MEDS: NOVOLOG SUB-Q SCH ×2 (09:57→12:30)
[2016-12-02 11:02] LABS: Anisocytosis 1+; Basophils % (Manual) 0 % (0.0-1.8); Blastocytes % (Manual) 0 %; Eosinophils % (Manual) 0 % (0.0-4.3); Target Cells Few
[2016-12-02 11:03] LABS: Diff Status Complete; Hypochromasia Few
--- NOTE | 2016-12-02 11:06 | Progress Note ---
Assessment and Plan Impression: * TREMAINE on CKD stage 4 * Foot/leg ulcers * HTN * DM type 2 * CAD * PVD * COPD * Hypotension * thrombocytopenia Plan: * strict i/os * decr plts noted, ? hematology input * questionable drug allergy * hold bp meds * iv abx for DM ulcers * continue ivfs * check urine eosinophils * follow up renal us/UA noted * dose meds crcl 20ml/min * no indication for technical developer today * stopped diuretics * gentle ivfs * avoid nephrotoxins * cr slightly better today, no need for CANDY SEPARATOR HARD * pt to eval. wound care, dc planning Subjective Date of service: 12/02/16 Principal diagnosis: bilateral leg wounds; TREMAINE Interval history: resting well in bed today Objective - Exam Narrative Exam: General appearance: Present: no acute distress, well-nourished - EENT Eyes: Present: PERRL ENT: hearing intact, clear oral mucosa - Neck Neck: Present: supple, normal ROM - Respiratory Respiratory effort: normal Respiratory: bilateral: CTA - Cardiovascular Rhythm: regular Heart Sounds: Present: S1 & S2. Absent: rub, click - Extremities Extremities: abnormal - Peripheral Assessment Right Foot Edema Type: Pitting Edema Degree: 4+ Skin Temperature: Cool Left Foot Edema Type: Pitting Edema Degree: 4+ Skin Temperature: Warm Peripheral Pulses: abnormal - Peripheral pulses dorsalis pedis Pulse Strength: 1+ (Doppler) - Abdominal General gastrointestinal: Present: soft, non-tender, non-distended, normal bowel sounds Male genitourinary: Present: normal - Integumentary Integumentary: Present: warm, dry - Musculoskeletal Musculoskeletal: gait normal, strength equal bilaterally - Psychiatric Psychiatric: appropriate mood/affect, intact judgment & insight - Neurologic Neurologic: focal deficits - Vital Signs Vital signs: Vital Signs - 12hr 12/02/16 12/02/16 00:00 08:58 Temperature 98.2 F 97.4 F L Pulse Rate 108 H 42 L Respiratory 18 18 Rate Blood Pressure 93/54 90/60 [Right] O2 Sat by Pulse 98 99 Oximetry - Lab 12/02/16 07:48 12/02/16 07:48 Most recent lab results Calcium 7.9 mg/dL (8.4-10.2) L 12/02/16 07:48 Urine Creatinine 78.6 mg/dL (0.1-20.0) H 11/30/16 10:00 Urine Sodium 10 mEq/L 11/30/16 10:00
[2016-12-02] MEDS: HEPARIN SUB-Q SCH (11:31)
[2016-12-02] MEDS: ISORDIL TITRADOSE PO SCH (11:32)
[2016-12-02] MEDS: RANEXA ER PO SCH (11:32)
[2016-12-02] MEDS: DAKIN'S HALF STRENGTH TP SCH (11:33)
[2016-12-02] MEDS: NACL 0.45% 1000 ML 1,000 ML IV SCH ×2 (11:34→23:01)
[2016-12-02] MEDS: COREG PO SCH (11:57)
[2016-12-02] MEDS: CARDURA PO SCH (11:57)
[2016-12-02] MEDS: NORVASC PO SCH (11:58)
[2016-12-02] MEDS: PROVENTIL IH PRN (12:50)
--- NOTE | 2016-12-02 13:34 | Progress Note ---
Assessment and Plan Assessment and plan: Bilateral DM leg ulcer DM Acute on chronic kidney disease Hypertension CAD Chronic systolic heart failure - Patient is on Unasyn and vancomycin, ID consulted - Per ID we are awaiting the sensitivity of the wound culture, and we'll discharge the patient on antibiotics - Doppler ultrasound of the legs is normal - Creatinine is trending up - I discontinued the IV fluid because of chest congestion. - Nephrology consult appreciated - Sliding scale insulin - Resume home medications DVT prophylaxis - Heparin Disposition - Pending sensitivity results from wound culture. History Interval history: Patient has episodes of hypoglycemia and shortness of breath. Hospitalist Physical - Physical exam Narrative exam: Not in cardiopulmonary distress. The patient appeared well nourished and normally developed. Vital signs as documented. Head exam is unremarkable. No scleral icterus . Neck is without jugular venous distension, thyromegaly, or carotid bruits. Lungs are clear to auscultation. Cardiac exam reveals regular rate and Rhythm. First and second heart sounds normal. No murmurs, rubs or gallops. Abdominal exam reveals normal bowel sounds, no masses, no organomegaly and no aortic enlargement. Extremities significant for bilateral leg and so around the calf area with offensive discharge. 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 No focal weakness. - Constitutional Vitals: Temp Pulse Resp BP Pulse Ox 97.4 F L 103 H 20 90/60 98 12/02/16 08:58 12/02/16 13:00 12/02/16 13:00 12/02/16 08:58 12/02/16 10:00 General appearance: Present: no acute distress Results - Labs CBC & Chem 7: 12/02/16 07:48 12/02/16 07:48 Labs: Laboratory Last Values WBC 10.2 K/mm3 (4.5-11.0) 12/02/16 07:48 RBC 3.73 M/mm3 (3.65-5.03) 12/02/16 07:48 Hgb 10.2 gm/dl (11.8-15.2) L 12/02/16 07:48 Hct 31.4 % (35.5-45.6) L 12/02/16 07:48 MCV 84 fl (84-94) 12/02/16 07:48 MCH 27 pg (28-32) L 12/02/16 07:48 MCHC 33 % (32-34) 12/02/16 07:48 RDW 16.3 % (13.2-15.2) H 12/02/16 07:48 Plt Count 89 K/mm3 (140-440) L 12/02/16 07:48 Lymph % (Auto) 2.4 % (13.4-35.0) L 11/29/16 08:37 [place] % (Auto) 8.5 % (0.0-7.3) H 11/29/16 08:37 Eos % (Auto) 0.1 % (0.0-4.3) 11/29/16 08:37 Baso % (Auto) 0.0 % (0.0-1.8) 11/29/16 08:37 Lymph # 0.2 K/mm3 (1.2-5.4) L 11/29/16 08:37 [place] # 0.9 K/mm3 (0.0-0.8) H 11/29/16 08:37 Eos # 0.0 K/mm3 (0.0-0.4) 11/29/16 08:37 Baso # 0.0 K/mm3 (0.0-0.1) 11/29/16 08:37 Add Manual Diff Complete 12/02/16 07:48 Total Counted 100 12/02/16 07:48 Seg Neutrophils % Maintenance Superintendent 12/02/16 07:48 Seg Neuts % (Manual) 87.0 % (40.0-70.0) H 12/02/16 07:48 Band Neutrophils % 2.0 % 12/02/16 07:48 Lymphocytes % (Manual) 7.0 % (13.4-35.0) L 12/02/16 07:48 Reactive Lymphs % (Man) 0 % 12/02/16 07:48 Monocytes % (Manual) 4.0 % (0.0-7.3) 12/02/16 07:48 Eosinophils % (Manual) 0 % (0.0-4.3) 12/02/16 07:48 Basophils % (Manual) 0 % (0.0-1.8) 12/02/16 07:48 Metamyelocytes % 0 % 12/02/16 07:48 Myelocytes % 0 % 12/02/16 07:48 Promyelocytes % 0 % 12/02/16 07:48 Blast Cells % 0 % 12/02/16 07:48 Nucleated RBC % Not Reportable 12/02/16 07:48 Seg Neutrophils # 9.2 K/mm3 (1.8-7.7) H 11/29/16 08:37 Seg Neutrophils # Man 8.9 K/mm3 (1.8-7.7) H 12/02/16 07:48 Band Neutrophils # 0.2 K/mm3 12/02/16 07:48 Lymphocytes # (Manual) 0.7 K/mm3 (1.2-5.4) L 12/02/16 07:48 Abs React Lymphs (Man) 0.0 K/mm3 12/02/16 07:48 Monocytes # (Manual) 0.4 K/mm3 (0.0-0.8) 12/02/16 07:48 Eosinophils # (Manual) 0.0 K/mm3 (0.0-0.4) 12/02/16 07:48 Basophils # (Manual) 0.0 K/mm3 (0.0-0.1) 12/02/16 07:48 Metamyelocytes # 0.0 K/mm3 12/02/16 07:48 Myelocytes # 0.0 K/mm3 12/02/16 07:48 Promyelocytes # 0.0 K/mm3 12/02/16 07:48 Blast Cells # 0.0 K/mm3 12/02/16 07:48 WBC Morphology Not Reportable 12/02/16 07:48 Hypersegmented Neuts Not Reportable 12/02/16 07:48 Hyposegmented Neuts Not Reportable 12/02/16 07:48 Hypogranular Neuts Not Reportable 12/02/16 07:48 Smudge Cells Not Reportable 12/02/16 07:48 Toxic Granulation Not Reportable 12/02/16 07:48 Toxic Vacuolation Not Reportable 12/02/16 07:48 Dohle Bodies Not Reportable 12/02/16 07:48 Pelger-Huet Anomaly Not Reportable 12/02/16 07:48 Demetra Rods Not Reportable 12/02/16 07:48 Platelet Estimate Not Reportable 12/02/16 07:48 Clumped Platelets Not Reportable 12/02/16 07:48 Plt Clumps, EDTA Not Reportable 12/02/16 07:48 Large Platelets Not Reportable 12/02/16 07:48 Giant Platelets Not Reportable 12/02/16 07:48 Platelet Satelliting Not Reportable 12/02/16 07:48 Plt Morphology Comment Not Reportable 12/02/16 07:48 RBC Morphology Not Reportable 12/02/16 07:48 Dimorphic RBCs Not Reportable 12/02/16 07:48 Polychromasia Not Reportable 12/02/16 07:48 Hypochromasia Few 12/02/16 07:48 Poikilocytosis Not Reportable 12/02/16 07:48 Anisocytosis 1+ 12/02/16 07:48 Microcytosis Not Reportable 12/02/16 07:48 Macrocytosis Not Reportable 12/02/16 07:48 Spherocytes Not Reportable 12/02/16 07:48 Pappenheimer Bodies Not Reportable 12/02/16 07:48 Sickle Cells Not Reportable 12/02/16 07:48 Target Cells Few 12/02/16 07:48 Tear Drop Cells Not Reportable 12/02/16 07:48 Ovalocytes Not Reportable 12/02/16 07:48 Helmet Cells Not Reportable 12/02/16 07:48 Don-[place] Bodies Not Reportable 12/02/16 07:48 [place] Rings Not Reportable 12/02/16 07:48 [place] Cells Not Reportable 12/02/16 07:48 Bite Cells Not Reportable 12/02/16 07:48 Crenated Cell Not Reportable 12/02/16 07:48 Elliptocytes Not Reportable 12/02/16 07:48 Acanthocytes (Spur) Not Reportable 12/02/16 07:48 Rouleaux Not Reportable 12/02/16 07:48 Hemoglobin C Crystals Not Reportable 12/02/16 07:48 Schistocytes Not Reportable 12/02/16 07:48 Malaria parasites Not Reportable 12/02/16 07:48 Romeo Bodies Not Reportable 12/02/16 07:48 Hem Pathologist Commnt No 12/02/16 07:48 PT 17.3 Sec. (12.2-14.9) H 11/28/16 16:02 INR 1.42 (0.87-1.13) H 11/28/16 16:02 APTT 38.0 Sec. (24.2-36.6) H 11/28/16 16:02 Sodium 136 mmol/L (137-145) L 12/02/16 07:48 Potassium 3.8 mmol/L (3.6-5.0) 12/02/16 07:48 Chloride 99.0 mmol/L (98-107) 12/02/16 07:48 Carbon Dioxide 22 mmol/L (22-30) 12/02/16 07:48 Anion Gap 19 mmol/L 12/02/16 07:48 BUN 75 mg/dL (9-20) H 12/02/16 07:48 Creatinine 2.7 mg/dL (0.8-1.5) H 12/02/16 07:48 Estimated GFR 28 ml/min 12/02/16 07:48 BUN/Creatinine Ratio 27.77 % 12/02/16 07:48 Glucose 83 mg/dL (75-100) 12/02/16 07:48 POC Glucose 124 (70-105) H 12/02/16 06:41 Hemoglobin A1c 10.6 % (4-6) H 11/28/16 16:02 Calcium 7.9 mg/dL (8.4-10.2) L 12/02/16 07:48 Troponin T 0.033 ng/mL (0.00-0.029) H 11/30/16 20:37 Triglycerides 72 mg/dL (2-149) 11/30/16 20:37 Cholesterol 132 mg/dL (50-199) 11/30/16 20:37 LDL Cholesterol Direct 82 mg/dL (50-130) 11/30/16 20:37 HDL Cholesterol 36 mg/dL (40-59) L 11/30/16 20:37 Cholesterol/HDL Ratio 3.66 % 11/30/16 20:37 Urine Color Yellow (Yellow) 11/30/16 10:00 Urine Turbidity Clear (Clear) 11/30/16 10:00 Urine pH 6.0 (5.0-7.0) 11/30/16 10:00 Ur Specific [place] 1.018 (1.003-1.030) 11/30/16 10:00 Urine Protein 30 mg/dl mg/dL (Negative) 11/30/16 10:00 Urine Glucose (UA) Neg mg/dL (Negative) 11/30/16 10:00 Urine Ketones Neg mg/dL (Negative) 11/30/16 10:00 Urine Blood Neg (Negative) 11/30/16 10:00 Urine Nitrite Neg (Negative) 11/30/16 10:00 Urine Bilirubin Neg (Negative) 11/30/16 10:00 Urine Urobilinogen < 2.0 mg/dL (<2.0) 11/30/16 10:00 Ur Leukocyte Esterase Tr (Negative) 11/30/16 10:00 Urine WBC (Auto) 2.0 /HPF (0.0-6.0) 11/30/16 10:00 Urine RBC (Auto) < 1.0 /HPF (0.0-6.0) 11/30/16 10:00 U Epithel Cells (Auto) < 1.0 /HPF (0-13.0) 11/30/16 10:00 Urine Eosinophils None seen (None Seen) 11/30/16 10:00 Urine Creatinine 78.6 mg/dL (0.1-20.0) H 11/30/16 10:00 Urine Sodium 10 mEq/L 11/30/16 10:00 Random Vancomycin 7.9 ug/mL (0-40.0) 11/30/16 08:53
--- NOTE | 2016-12-02 19:30 | Event Note ---
Date: 12/02/16 Lenore tristan was called at 18:54 for the patient become unresponsive and in Asystole. The patient was successfully resuscitated according to the ACLS protocol. He is intubated and transferred to ICU. His BP was 80/50. Bolus of NS ordered. CBC, CMP, cardiac enzymes, CXR ordered. Dr Cabrera will follow.
[2016-12-02] MEDS ORDERED: LEVOPHED DRIP 4 MG/NS 250 ML 4 MG/250 ML BAG IV ONE (19:42)
[2016-12-02 19:53] LABS: Hematocrit 34.6 % (35.5-45.6); Hemoglobin 10.9 gm/dl (11.8-15.2); Mean Corpuscular HGB Conc 31 % (32-34); Mean Corpuscular Hemoglobin 27 pg (28-32); Mean Corpuscular Volume 86 fl (84-94); Red Cell Distribution Width 16.2 % (13.2-15.2); White Blood Count 13.8 K/mm3 (4.5-11.0)
[2016-12-02 19:54] LABS: Creatine Kinase MB 1.9 ng/mL (0.0-4.0)
[2016-12-02 19:56] LABS: Albumin 2.7 g/dL (3.9-5); Albumin/Globulin Ratio 0.8 %; BUN/Creatinine Ratio 26.78; Bilirubin,Total 2.7 mg/dL (0.1-1.2); Calcium 7.8 mg/dL (8.4-10.2); Chloride 95.8 mmol/L (98-107)
[2016-12-02] MEDS ORDERED: HEPARIN/ 0.45% NACL-25,000 UNIT/500 ML 25,000 UNIT/500 ML BAG IV SCH (20:00)
[2016-12-02 20:02] LABS: INR 1.27 (0.87-1.13)
[2016-12-02 20:03] LABS: Partial Thromboplastin Time 45.4 Sec. (24.2-36.6)
[2016-12-02] MEDS ORDERED: SUBLIMAZE IV PRN (20:27)
[2016-12-02] MEDS ORDERED: ATIVAN IV PRN (20:28)
--- NOTE | 2016-12-02 20:32 | XRay Report ---
FINAL REPORT EXAM: XR CHEST 1V AP HISTORY: unresponsive TECHNIQUE: AP portable view of the chest PRIORS: None. FINDINGS: Lines, tubes, and devices: Median sternotomy wires and a 3 lead left subclavian pacemaker are noted. The upper mediastinal wire is broken. Pacer leads terminate in the right atrium, right ventricle, and left ventricle. Endotracheal tube terminates about 3.5 cm above the k[place]. Lungs and pleura: Trachea is normal in position. Lungs are clear of infiltrate, pleural effusion, vascular congestion, or pneumothorax. Cardiomediastinal silhouette: The heart is enlarged. Mediastinum is otherwise unremarkable.. Other: Bony structures are intact. IMPRESSION: No acute cardiopulmonary process seen. Cardiomegaly.
--- NOTE | 2016-12-02 20:50 | Operative Report ---
Operative Report Operative Report: EXAM: 1. Ultrasound-guided puncture of the right common femoral vein 2. Placement of a right common femoral vein nontunneled noncuffed catheter. DATE: 12/02/16 INDICATION: 71-year-old male who recently coded with requests for triple lumen catheter for pressure support. MEDICATIONS: Local anesthetic (1% lidocaine). [employer]KE REPA[employer]ILRO[employer]: ELVIS SMITH MD DEVICES: 7F triple lumen nontunneled noncuffed catheter CONTRAST: None PROCEDURE: The risks, benefits, and alternatives were discussed and informed consent was obtained. The patient's right common femoral vein was assessed with ultrasound at bedside and determined to be patent prior to procedure. The patient was prepped and draped in a sterile fashion. The puncture site was anesthetized. Under sonographic guidance, the right common femoral vein was punctured with a 18-gauge micropuncture needle and a 0.035 inch wire was advanced through the needle. Over the 0.035 inch wire, dilatation was performed. The catheter was advanced over the wire. 2-0 silk suture was used to secure the catheter. The catheter was charged with saline. Biopatch and tegaderm were applied. Sterile dressing applied. FINDINGS: 1. Ultrasound documented patency of the right common femoral vein. The vessel was accessed under direct ultrasound guidance. IMPRESSION: 1. Successful ultrasound guided bedside placement of a right common femoral vein 7 [place] nontunneled noncuffed triple lumen catheter.
[2016-12-02 21:01] LABS: Platelet Count 106 K/mm3 (140-440)
[2016-12-02 21:42] LABS: Basophils % (Manual) 0 % (0.0-1.8); Blastocytes % (Manual) 0 %
[2016-12-02 22:18] LABS: ISTAT Base Excess -6; ISTAT HCO3 21.8; ISTAT PH 7.214 (7.35-7.45); ISTAT PO2 227 (80-105); ISTAT SO2 100; ISTAT TCO2 23
[2016-12-02 22:30] LABS: Eosinophils % (Manual) 0 % (0.0-4.3)
[2016-12-02 22:33] LABS: Anisocytosis 1+
[2016-12-02 22:34] LABS: Diff Status Complete; Elliptocytes 1+; Large Platelets 1+; Target Cells Few
[2016-12-02] MEDS ORDERED: ADRENALIN ONE (22:50)
[2016-12-02] MEDS ORDERED: SODIUM BICARBONATE IV ONE (22:50)
[2016-12-03] MEDS ORDERED: NACL 0.9% 500 ML 500 ML IV ONE (03:03)
[2016-12-03] MEDS ORDERED: NACL 0.9% 1000 ML 1,000 ML ONE (03:07)
--- NOTE | 2016-12-03 03:15 | Consultation ---
History of Present Illness Consult date: 12/03/16 Requesting physician: LACIE EPPS Reason for consult: hypoxemia, other (acute respiratory failure post cardiac arrest, asystole) History of present illness: 71 y/o male, originally admitted with ulcers and concern for infection. Was on the floor for several days and from following the notes, was being prepped for discharge. Yesterday around 6:45 patient went into cardiac arrest, asystole based on documentation. There is no documentation about how much drug was given or how long the time was prior to ROSC. Patient was intubated and transitioned to the ICU. Right groin TLC was placed by Vascular Surgery and levophed is infusing at 5mcg. Patient was also started on heparin drip. No clear documentation as to why this was started either. Currently not on sedation. Breathing over the vent. No family at bedside. Unresponsive to verbal and tactile stimuli. Remainder is negative. Past History Past Medical History: CAD, diabetes, hypertension, hyperlipidemia, PVD, renal failure (not presently on hemodialysis) Past Surgical History: CABG (1996), Other [facility] Social history: lives with family, full code. denies: smoking (quit x20 years, ), alcohol abuse, prescription drug abuse Family history: CAD, cancer, diabetes, hypertension Medications and Allergies Allergies Allergy/AdvReac Type Severity Reaction Status Date / Time lisinopril Allergy Mild Unknown Verified 08/08/14 11:26 pollen extracts AdvReac COUGH,SNEEZ Unverified 11/28/16 13:22 E Home Medications Medication Instructions Recorded Confirmed Last Taken Type Carvedilol [Coreg] 25 mg PO BID 08/21/13 08/08/14 05/29/14 History Doxazosin Mesylate 8 mg PO DAILY 08/21/13 08/08/14 05/29/14 History Insulin Glargine,Hum.rec.anlog 30 unit PO QDAY 08/21/13 08/08/14 05/28/14 History [Lantus Solostar] Isosorbide Dinitrate 30 mg PO DAILY 08/21/13 08/08/14 05/29/14 History Ranolazine [Ranexa] 1,000 mg PO BID 08/21/13 08/08/14 05/29/14 History Atorvastatin Calcium [Lipitor] 40 mg PO DAILY 12/25/13 08/08/14 03/26/14 History 40mg amLODIPine [Norvasc] 5 mg PO DAILY 03/27/14 08/08/14 05/29/14 History Epoetin Shorty [Procrit] 4,000 unit SQ QMONTH 08/08/14 08/08/14 08/04/14 History 4000 units Multivitamin [Multi-Vitamin Daily] 1 tab PO DAILY 08/08/14 08/08/14 Unknown History Albuterol Sulfate [Proventil HFA] 2 puff IH Q4H PRN #1 pump 08/13/14 Unknown Rx Insulin Aspart [NovoLOG 100 5 unit SQ AC #1 vial 08/13/14 Unknown Rx UNITS/ML] Metolazone 5 mg PO DAILY 30 Days 08/13/14 Unknown Rx Active Meds: Active Medications Acetaminophen (Tylenol) 650 mg PO Q4H PRN PRN Reason: Pain MILD(1-3)/Fever >100.5/DANG Last Admin: 11/28/16 18:51 Dose: 650 mg Albuterol (Proventil) 2.5 mg IH Q4HRT PRN PRN Reason: Shortness Of Breath Last Admin: 12/02/16 12:50 Dose: 2.5 mg Atorvastatin Calcium (Lipitor) 40 mg PO QHS KYLAH Last Admin: 12/01/16 21:28 Dose: 40 mg Bisacodyl (Dulcolax) 10 mg TX QDAY PRN PRN Reason: Constipation unrelieved by MOM Dextrose (D50w (25gm)) 50 ml IV PRN PRN PRN Reason: Hypoglycemia Last Admin: 12/02/16 12:30 Dose: 50 ml Fentanyl (Sublimaze) 50 mcg IV Q2H PRN PRN Reason: Pain Ampicillin Sodium/Sulbactam Sodium (Unasyn/Ns 3 Gm/100 Ml) 3 gm in 100 mls @ 100 mls/hr IV Q12H KYLAH PRN Reason: Protocol Last Admin: 12/02/16 16:07 Dose: 100 mls/hr Sodium Chloride (Nacl 0.45% 1000 Ml) 1,000 mls @ 100 mls/hr IV DIRECT KYLAH Last Admin: 12/02/16 23:01 Dose: 65 mls/hr Vancomycin HCl (Vancomycin/Ns 1 Gm/250 Ml) 1 gm in 250 mls @ 166.667 mls/hr IV Q24H KYLAH Last Admin: 12/01/16 17:34 Dose: 166.667 mls/hr Heparin Sodium/Sodium Chloride (Heparin/ 0.45% Nacl-25,000 Unit/500 Ml) 25,000 unit in 500 mls @ 21 mls/hr IV TITR KYLAH; 1,050 UNITS/HR PRN Reason: Protocol Last Admin: 12/03/16 01:12 Dose: 1,050 units/hr, 21 mls/hr Norepinephrine (Levophed Drip 4 Mg/Ns 250 Ml) 4 mg in 250 mls @ 7.5 mls/hr IV TITR KYLAH; 2 MCG/MIN PRN Reason: Protocol Sodium Chloride (Nacl 0.9% 500 Ml) 500 mls @ 999 mls/hr IV ONCE ONE Stop: 12/03/16 03:33 Lorazepam (Ativan) 1 mg IV Q4H PRN PRN Reason: Agitation Ondansetron HCl (Zofran) 4 mg IV Q8H PRN PRN Reason: Nausea And Vomiting Last Admin: 12/01/16 17:45 Dose: 4 mg Sodium Hypochlorite (Dakin's Half Strength) 1 applic TP BID KYLAH Last Admin: 12/02/16 11:33 Dose: 1 applicatio Vancomycin HCl (Vancomycin Pharmacy To Dose) 1 each IV PKCONSULT KYLAH PRN Reason: Protocol Review of Systems ROS unobtainable: due to endotracheal tube, due to mental status Physical Examination Vital signs: Vital Signs Pulse Ox 97 11/28/16 14:06 General appearance: comatose, appears uncomfortable Eyes: other (currently rolled back into his head) ENT: other (orally intubated) Neck: supple Ascultation: Bilateral: rales (anteriorly) Percussion: Bilateral: not dull Cardiovascular: other (Appears to be a paced rhythm with frequent PVC's. Some axis deviation as well) Gastrointestinal: normoactive bowel sounds, soft Extremities: no edema, cool Gait: other (unable to assess) unable to assess Results - Laboratory Findings CBC and BMP: 12/02/16 19:23 12/02/16 19:23 ABG POC ABG pH 7.214 (7.35-7.45) L 12/02/16 21:14 POC ABG pCO2 54.0 (35-45) H 12/02/16 21:14 POC ABG pO2 227 (80-105) H 12/02/16 21:14 POC ABG HCO3 21.8 12/02/16 21:14 POC ABG Total CO2 23 12/02/16 21:14 POC ABG O2 Sat 100 12/02/16 21:14 PT/INR, D-dimer PT 16.6 Sec. (12.2-14.9) H 12/02/16 19:20 INR 1.27 (0.87-1.13) H 12/02/16 19:20 Abnormal lab findings: Abnormal Labs 11/28/16 11/28/16 11/28/16 14:16 16:02 16:02 WBC Hgb Hct MCH MCHC RDW Plt Count Lymph % (Auto) [place] % (Auto) Lymph # [place] # Seg Neutrophils % Seg Neuts % (Manual) Lymphocytes % (Manual) Seg Neutrophils # Seg Neutrophils # Man Lymphocytes # (Manual) Monocytes # (Manual) PT 17.3 H INR 1.42 H APTT 38.0 H Heparin Anti-Xa Level POC ABG pH POC ABG pCO2 POC ABG pO2 Sodium Potassium 3.3 L Chloride 96.0 L BUN 100 H Creatinine 3.4 H Glucose 235 H POC Glucose 500 H Hemoglobin A1c Calcium Total Bilirubin Troponin T Total Protein Albumin HDL Cholesterol Urine Creatinine 11/28/16 11/28/16 11/29/16 16:02 21:30 05:50 WBC Hgb Hct MCH MCHC RDW Plt Count Lymph % (Auto) [place] % (Auto) Lymph # [place] # Seg Neutrophils % Seg Neuts % (Manual) Lymphocytes % (Manual) Seg Neutrophils # Seg Neutrophils # Man Lymphocytes # (Manual) Monocytes # (Manual) PT INR APTT Heparin Anti-Xa Level POC ABG pH POC ABG pCO2 POC ABG pO2 Sodium Potassium Chloride BUN Creatinine Glucose POC Glucose 68 L 40 L Hemoglobin A1c 10.6 H Calcium Total Bilirubin Troponin T Total Protein Albumin HDL Cholesterol Urine Creatinine 11/29/16 11/29/16 11/29/16 06:33 08:37 08:37 WBC Hgb 10.2 L Hct 30.9 L MCH MCHC RDW 16.0 H Plt Count 104 L Lymph % (Auto) 2.4 L [place] % (Auto) 8.5 H Lymph # 0.2 L [place] # 0.9 H Seg Neutrophils % 89.0 H Seg Neuts % (Manual) Lymphocytes % (Manual) Seg Neutrophils # 9.2 H Seg Neutrophils # Man Lymphocytes # (Manual) Monocytes # (Manual) PT INR APTT Heparin Anti-Xa Level POC ABG pH POC ABG pCO2 POC ABG pO2 Sodium Potassium Chloride BUN 95 H Creatinine 2.9 H Glucose POC Glucose 57 L Hemoglobin A1c Calcium Total Bilirubin Troponin T Total Protein Albumin HDL Cholesterol Urine Creatinine 11/29/16 11/29/16 11/29/16 11:41 12:48 15:44 WBC Hgb Hct MCH MCHC RDW Plt Count Lymph % (Auto) [place] % (Auto) Lymph # [place] # Seg Neutrophils % Seg Neuts % (Manual) Lymphocytes % (Manual) Seg Neutrophils # Seg Neutrophils # Man Lymphocytes # (Manual) Monocytes # (Manual) PT INR APTT Heparin Anti-Xa Level POC ABG pH POC ABG pCO2 POC ABG pO2 Sodium Potassium Chloride BUN Creatinine Glucose POC Glucose 48 L 143 H 138 H Hemoglobin A1c Calcium Total Bilirubin Troponin T Total Protein Albumin HDL Cholesterol Urine Creatinine 11/29/16 11/29/16 11/30/16 21:04 22:26 06:11 WBC Hgb Hct MCH MCHC RDW Plt Count Lymph % (Auto) [place] % (Auto) Lymph # [place] # Seg Neutrophils % Seg Neuts % (Manual) Lymphocytes % (Manual) Seg Neutrophils # Seg Neutrophils # Man Lymphocytes # (Manual) Monocytes # (Manual) PT INR APTT Heparin Anti-Xa Level POC ABG pH POC ABG pCO2 POC ABG pO2 Sodium Potassium Chloride BUN Creatinine Glucose POC Glucose 49 L 165 H 121 H Hemoglobin A1c Calcium Total Bilirubin Troponin T Total Protein Albumin HDL Cholesterol Urine Creatinine 11/30/16 11/30/16 11/30/16 08:53 08:53 10:00 WBC Hgb 10.9 L Hct 33.2 L MCH MCHC RDW 16.3 H Plt Count 96 L Lymph % (Auto) [place] % (Auto) Lymph # [place] # Seg Neutrophils % Seg Neuts % (Manual) 91.0 H Lymphocytes % (Manual) 2.0 L Seg Neutrophils # Seg Neutrophils # Man 9.3 H Lymphocytes # (Manual) 0.2 L Monocytes # (Manual) PT INR APTT Heparin Anti-Xa Level POC ABG pH POC ABG pCO2 POC ABG pO2 Sodium Potassium Chloride BUN 78 H Creatinine 2.3 H Glucose 139 H POC Glucose Hemoglobin A1c Calcium 8.3 L Total Bilirubin Troponin T Total Protein Albumin HDL Cholesterol Urine Creatinine 78.6 H 11/30/16 11/30/16 11/30/16 11:23 17:43 20:23 WBC Hgb Hct MCH MCHC RDW Plt Count Lymph % (Auto) [place] % (Auto) Lymph # [place] # Seg Neutrophils % Seg Neuts % (Manual) Lymphocytes % (Manual) Seg Neutrophils # Seg Neutrophils # Man Lymphocytes # (Manual) Monocytes # (Manual) PT INR APTT Heparin Anti-Xa Level POC ABG pH POC ABG pCO2 POC ABG pO2 Sodium Potassium Chloride BUN Creatinine Glucose POC Glucose 169 H 57 L 69 L Hemoglobin A1c Calcium Total Bilirubin Troponin T Total Protein Albumin HDL Cholesterol Urine Creatinine 11/30/16 11/30/16 12/01/16 20:37 22:12 07:39 WBC 12.9 H Hgb 10.9 L Hct 33.2 L MCH MCHC RDW 16.6 H Plt Count 94 L Lymph % (Auto) [place] % (Auto) Lymph # [place] # Seg Neutrophils % Seg Neuts % (Manual) 98.0 H Lymphocytes % (Manual) 0 L Seg Neutrophils # Seg Neutrophils # Man 12.6 H Lymphocytes # (Manual) 0.0 L Monocytes # (Manual) PT INR APTT Heparin Anti-Xa Level POC ABG pH POC ABG pCO2 POC ABG pO2 Sodium Potassium Chloride BUN Creatinine Glucose POC Glucose 107 H Hemoglobin A1c Calcium Total Bilirubin Troponin T 0.033 H Total Protein Albumin HDL Cholesterol 36 L Urine Creatinine 12/01/16 12/01/16 12/01/16 07:39 11:48 17:02 WBC Hgb Hct MCH MCHC RDW Plt Count Lymph % (Auto) [place] % (Auto) Lymph # [place] # Seg Neutrophils % Seg Neuts % (Manual) Lymphocytes % (Manual) Seg Neutrophils # Seg Neutrophils # Man Lymphocytes # (Manual) Monocytes # (Manual) PT INR APTT Heparin Anti-Xa Level POC ABG pH POC ABG pCO2 POC ABG pO2 Sodium Potassium Chloride BUN 71 H Creatinine 2.1 H Glucose POC Glucose 193 H 170 H Hemoglobin A1c Calcium 8.1 L Total Bilirubin Troponin T Total Protein Albumin HDL Cholesterol Urine Creatinine 12/01/16 12/02/16 12/02/16 21:17 06:05 06:34 WBC Hgb Hct MCH MCHC RDW Plt Count Lymph % (Auto) [place] % (Auto) Lymph # [place] # Seg Neutrophils % Seg Neuts % (Manual) Lymphocytes % (Manual) Seg Neutrophils # Seg Neutrophils # Man Lymphocytes # (Manual) Monocytes # (Manual) PT INR APTT Heparin Anti-Xa Level POC ABG pH POC ABG pCO2 POC ABG pO2 Sodium Potassium Chloride BUN Creatinine Glucose POC Glucose 156 H < 40 L 141 H Hemoglobin A1c Calcium Total Bilirubin Troponin T Total Protein Albumin HDL Cholesterol Urine Creatinine 12/02/16 12/02/16 12/02/16 06:41 07:48 07:48 WBC Hgb 10.2 L Hct 31.4 L MCH 27 L MCHC RDW 16.3 H Plt Count 89 L Lymph % (Auto) [place] % (Auto) Lymph # [place] # Seg Neutrophils % Seg Neuts % (Manual) 87.0 H Lymphocytes % (Manual) 7.0 L Seg Neutrophils # Seg Neutrophils # Man 8.9 H Lymphocytes # (Manual) 0.7 L Monocytes # (Manual) PT INR APTT Heparin Anti-Xa Level POC ABG pH POC ABG pCO2 POC ABG pO2 Sodium 136 L Potassium Chloride BUN 75 H Creatinine 2.7 H Glucose POC Glucose 124 H Hemoglobin A1c Calcium 7.9 L Total Bilirubin Troponin T Total Protein Albumin HDL Cholesterol Urine Creatinine 12/02/16 12/02/16 12/02/16 12:22 18:02 19:20 WBC Hgb Hct MCH MCHC RDW Plt Count Lymph % (Auto) [place] % (Auto) Lymph # [place] # Seg Neutrophils % Seg Neuts % (Manual) Lymphocytes % (Manual) Seg Neutrophils # Seg Neutrophils # Man Lymphocytes # (Manual) Monocytes # (Manual) PT 16.6 H INR 1.27 H APTT 45.4 H Heparin Anti-Xa Level POC ABG pH POC ABG pCO2 POC ABG pO2 Sodium Potassium Chloride BUN Creatinine Glucose POC Glucose < 40 L 53 L Hemoglobin A1c Calcium Total Bilirubin Troponin T Total Protein Albumin HDL Cholesterol Urine Creatinine 12/02/16 12/02/16 12/02/16 19:23 19:23 19:39 WBC 13.8 H Hgb 10.9 L Hct 34.6 L MCH 27 L MCHC 31 L RDW 16.2 H Plt Count 106 L Lymph % (Auto) [place] % (Auto) Lymph # [place] # Seg Neutrophils % Seg Neuts % (Manual) 86.0 H Lymphocytes % (Manual) 4.0 L Seg Neutrophils # Seg Neutrophils # Man 11.9 H Lymphocytes # (Manual) 0.6 L Monocytes # (Manual) 1.0 H PT INR APTT Heparin Anti-Xa Level POC ABG pH POC ABG pCO2 POC ABG pO2 Sodium Potassium Chloride 95.8 L BUN 75 H Creatinine 2.8 H Glucose 105 H POC Glucose 141 H Hemoglobin A1c Calcium 7.8 L Total Bilirubin 2.70 H Troponin T Total Protein 6.0 L Albumin 2.7 L HDL Cholesterol Urine Creatinine 12/02/16 12/03/16 21:14 01:15 WBC Hgb Hct MCH MCHC RDW Plt Count Lymph % (Auto) [place] % (Auto) Lymph # [place] # Seg Neutrophils % Seg Neuts % (Manual) Lymphocytes % (Manual) Seg Neutrophils # Seg Neutrophils # Man Lymphocytes # (Manual) Monocytes # (Manual) PT INR APTT Heparin Anti-Xa Level < 0.10 L POC ABG pH 7.214 L POC ABG pCO2 54.0 H POC ABG pO2 227 H Sodium Potassium Chloride BUN Creatinine Glucose POC Glucose Hemoglobin A1c Calcium Total Bilirubin Troponin T Total Protein Albumin HDL Cholesterol Urine Creatinine - Diagnostic Findings Chest x-ray: image reviewed (Cardiomegaly, with hardware otherwise clear, one from this am is pending.) Assessment and Plan 71 y/o male with cardiac arrest, asystole with unknown down time and ROSC, now orally intubated, not on sedation, hypotensive and started on heparin drip 1. Continue to hold PRN sedation. Given the exam currently by myself, will discontinue all sedative medication. 2. Continue vent support. Down to 70%. Asked RT to drop to 60 after first ABG , but likely did not hear me. Will await am ABG and then adjust vent accordingly 3. Reviewed documentation, unable to find exact reason why heparin drip was ordered. Reviewed the code sheet. Documented as asystole and then 17minutes later a shock was given, but the type of rhythm was not documented. Will discontinue heparin drip for now until I can speak with physician that ran the code 4. Follow up any new renal recs for today. I have ordered a normal saline bolus of 500cc's to see if this would help with BP. 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 5. Agree with current abx therapy, patient was already being followed by ID. There was also concern for possible aspiration given large amounts of emesis in room during code. Unasyn, should provide good anaerobic coverage but will defer to ID 6. Will restart Sub Q heparin for DVT prophylaxis 7. Hold on Tube feeds until off pressors 8. Overall prognosis is poor, no family at bedside to discuss CCT 31 minutes.
[2016-12-03 04:56] LABS: ISTAT Base Excess -5; ISTAT HCO3 20.1; ISTAT PCO2 35.5 (35-45); ISTAT PH 7.361 (7.35-7.45); ISTAT PO2 72 (80-105); ISTAT SO2 94; ISTAT TCO2 21
[2016-12-03] MEDS: D50W (25GM) IV PRN (06:30)
[2016-12-03 06:32] LABS: Hematocrit 32.9 % (35.5-45.6); Hemoglobin 10.5 gm/dl (11.8-15.2); Mean Corpuscular HGB Conc 32 % (32-34); Mean Corpuscular Hemoglobin 27 pg (28-32); Mean Corpuscular Volume 85 fl (84-94); Platelet Count 101 K/mm3 (140-440); Red Blood Count 3.89 M/mm3 (3.65-5.03); Red Cell Distribution Width 16.6 % (13.2-15.2)
[2016-12-03 06:48] LABS: BUN/Creatinine Ratio 29.61; Calcium 7.6 mg/dL (8.4-10.2); Chloride 94.2 mmol/L (98-107)
[2016-12-03 06:53] LABS: White Blood Count 45.9 K/mm3 (4.5-11.0)
[2016-12-03 07:06] LABS: Potassium 6.8 mmol/L (3.6-5.0)
--- NOTE | 2016-12-03 07:14 | Progress Note ---
Assessment and Plan - Patient Problems (1) Wound infection Current Visit: Yes Status: Acute Plan to address problem: Continue same management pending micro updates. Local care to lower extremity wounds. Subjective Date of service: 12/03/16 Principal diagnosis: bilateral leg wounds; TREMAINE Interval history: Asystolic arrest yesterday, now in ICU. Objective - Constitutional Vitals: Vital Signs Temp Pulse Resp BP Pulse Ox 97.6 F 82 19 106/62 98 12/03/16 04:06 12/03/16 03:45 12/03/16 00:21 12/03/16 03:45 12/03/16 03:45 Temperature -Last 24 Hours Temperature 97.6 F Temperature 97.3 F Temperature 97.6 F Temperature 97.4 F General appearance: Present: no acute distress (intubated, FiO2 60%) - Respiratory Respiratory: left: other (ICD left chest), bilateral: CTA - Cardiovascular Rhythm: irregularly irregular Extremity abnormal: edema, other (lower extremity wounds little changed intervally) - Gastrointestinal General gastrointestinal: Present: soft, non-distended, normal bowel sounds - Integumentary Integumentary: clear, no rash - Labs CBC & Chem 7: 12/03/16 06:04 12/03/16 06:04 Labs: Abnormal lab results 12/02/16 12/02/16 12/02/16 Range/Units 07:48 07:48 12:22 WBC (4.5-11.0) K/mm3 Hgb 10.2 L (11.8-15.2) gm/dl Hct 31.4 L (35.5-45.6) % MCH 27 L (28-32) pg MCHC (32-34) % RDW 16.3 H (13.2-15.2) % Plt Count 89 L (140-440) K/mm3 Seg Neuts % (Manual) 87.0 H (40.0-70.0) % Lymphocytes % (Manual) 7.0 L (13.4-35.0) % Seg Neutrophils # Man 8.9 H (1.8-7.7) K/mm3 Lymphocytes # (Manual) 0.7 L (1.2-5.4) K/mm3 Monocytes # (Manual) (0.0-0.8) K/mm3 PT (12.2-14.9) Sec. INR (0.87-1.13) APTT (24.2-36.6) Sec. Heparin Anti-Xa Level (0.3-0.7) U.I./ml POC ABG pH (7.35-7.45) POC ABG pCO2 (35-45) POC ABG pO2 (80-105) Sodium 136 L (137-145) mmol/L Potassium (3.6-5.0) mmol/L Chloride (98-107) mmol/L Carbon Dioxide (22-30) mmol/L BUN 75 H (9-20) mg/dL Creatinine 2.7 H (0.8-1.5) mg/dL Glucose (75-100) mg/dL POC Glucose < 40 L (70-105) Calcium 7.9 L (8.4-10.2) mg/dL Total Bilirubin (0.1-1.2) mg/dL Total Protein (6.3-8.2) g/dL Albumin (3.9-5) g/dL 12/02/16 12/02/16 12/02/16 Range/Units 18:02 19:20 19:23 WBC (4.5-11.0) K/mm3 Hgb (11.8-15.2) gm/dl Hct (35.5-45.6) % MCH (28-32) pg MCHC (32-34) % RDW (13.2-15.2) % Plt Count (140-440) K/mm3 Seg Neuts % (Manual) (40.0-70.0) % Lymphocytes % (Manual) (13.4-35.0) % Seg Neutrophils # Man (1.8-7.7) K/mm3 Lymphocytes # (Manual) (1.2-5.4) K/mm3 Monocytes # (Manual) (0.0-0.8) K/mm3 PT 16.6 H (12.2-14.9) Sec. INR 1.27 H (0.87-1.13) APTT 45.4 H (24.2-36.6) Sec. Heparin Anti-Xa Level (0.3-0.7) U.I./ml POC ABG pH (7.35-7.45) POC ABG pCO2 (35-45) POC ABG pO2 (80-105) Sodium (137-145) mmol/L Potassium (3.6-5.0) mmol/L Chloride 95.8 L (98-107) mmol/L Carbon Dioxide (22-30) mmol/L BUN 75 H (9-20) mg/dL Creatinine 2.8 H (0.8-1.5) mg/dL Glucose 105 H (75-100) mg/dL POC Glucose 53 L (70-105) Calcium 7.8 L (8.4-10.2) mg/dL Total Bilirubin 2.70 H (0.1-1.2) mg/dL Total Protein 6.0 L (6.3-8.2) g/dL Albumin 2.7 L (3.9-5) g/dL 12/02/16 12/02/16 12/02/16 Range/Units 19:23 19:39 21:14 WBC 13.8 H (4.5-11.0) K/mm3 Hgb 10.9 L (11.8-15.2) gm/dl Hct 34.6 L (35.5-45.6) % MCH 27 L (28-32) pg MCHC 31 L (32-34) % RDW 16.2 H (13.2-15.2) % Plt Count 106 L (140-440) K/mm3 Seg Neuts % (Manual) 86.0 H (40.0-70.0) % Lymphocytes % (Manual) 4.0 L (13.4-35.0) % Seg Neutrophils # Man 11.9 H (1.8-7.7) K/mm3 Lymphocytes # (Manual) 0.6 L (1.2-5.4) K/mm3 Monocytes # (Manual) 1.0 H (0.0-0.8) K/mm3 PT (12.2-14.9) Sec. INR (0.87-1.13) APTT (24.2-36.6) Sec. Heparin Anti-Xa Level (0.3-0.7) U.I./ml POC ABG pH 7.214 L (7.35-7.45) POC ABG pCO2 54.0 H (35-45) POC ABG pO2 227 H (80-105) Sodium (137-145) mmol/L Potassium (3.6-5.0) mmol/L Chloride (98-107) mmol/L Carbon Dioxide (22-30) mmol/L BUN (9-20) mg/dL Creatinine (0.8-1.5) mg/dL Glucose (75-100) mg/dL POC Glucose 141 H (70-105) Calcium (8.4-10.2) mg/dL Total Bilirubin (0.1-1.2) mg/dL Total Protein (6.3-8.2) g/dL Albumin (3.9-5) g/dL 12/03/16 12/03/16 12/03/16 Range/Units 01:15 04:15 05:15 WBC (4.5-11.0) K/mm3 Hgb (11.8-15.2) gm/dl Hct (35.5-45.6) % MCH (28-32) pg MCHC (32-34) % RDW (13.2-15.2) % Plt Count (140-440) K/mm3 Seg Neuts % (Manual) (40.0-70.0) % Lymphocytes % (Manual) (13.4-35.0) % Seg Neutrophils # Man (1.8-7.7) K/mm3 Lymphocytes # (Manual) (1.2-5.4) K/mm3 Monocytes # (Manual) (0.0-0.8) K/mm3 PT (12.2-14.9) Sec. INR (0.87-1.13) APTT (24.2-36.6) Sec. Heparin Anti-Xa Level < 0.10 L (0.3-0.7) U.I./ml POC ABG pH (7.35-7.45) POC ABG pCO2 (35-45) POC ABG pO2 72 L (80-105) Sodium (137-145) mmol/L Potassium (3.6-5.0) mmol/L Chloride (98-107) mmol/L Carbon Dioxide (22-30) mmol/L BUN (9-20) mg/dL Creatinine (0.8-1.5) mg/dL Glucose (75-100) mg/dL POC Glucose 50 L (70-105) Calcium (8.4-10.2) mg/dL Total Bilirubin (0.1-1.2) mg/dL Total Protein (6.3-8.2) g/dL Albumin (3.9-5) g/dL 12/03/16 12/03/16 12/03/16 Range/Units 06:04 06:04 06:51 WBC 45.9 H* (4.5-11.0) K/mm3 Hgb 10.5 L (11.8-15.2) gm/dl Hct 32.9 L (35.5-45.6) % MCH 27 L (28-32) pg MCHC (32-34) % RDW 16.6 H (13.2-15.2) % Plt Count 101 L (140-440) K/mm3 Seg Neuts % (Manual) (40.0-70.0) % Lymphocytes % (Manual) (13.4-35.0) % Seg Neutrophils # Man (1.8-7.7) K/mm3 Lymphocytes # (Manual) (1.2-5.4) K/mm3 Monocytes # (Manual) (0.0-0.8) K/mm3 PT (12.2-14.9) Sec. INR (0.87-1.13) APTT (24.2-36.6) Sec. Heparin Anti-Xa Level (0.3-0.7) U.I./ml POC ABG pH (7.35-7.45) POC ABG pCO2 (35-45) POC ABG pO2 (80-105) Sodium 128 L D (137-145) mmol/L Potassium 6.8 H* D (3.6-5.0) mmol/L Chloride 94.2 L (98-107) mmol/L Carbon Dioxide 17 L (22-30) mmol/L BUN 77 H (9-20) mg/dL Creatinine 2.6 H (0.8-1.5) mg/dL Glucose (75-100) mg/dL POC Glucose 118 H (70-105) Calcium 7.6 L (8.4-10.2) mg/dL Total Bilirubin (0.1-1.2) mg/dL Total Protein (6.3-8.2) g/dL Albumin (3.9-5) g/dL Microbiology 11/29/16 14:55 Leg - Left Wound Culture - Preliminary Gram Negative Charles 11/30/16 16:15 Leg - Right Wound Culture - Preliminary Gram Negative Charles Gram Negative Charles#2 Gram Negative Charles#3 Gram Negative Charles#4 - Imaging and cardiology Chest x-ray: report reviewed (mild improvement is vascular congestion)
[2016-12-03] MEDS: DAKIN'S HALF STRENGTH TP SCH ×3 (08:06→22:00)
[2016-12-03 08:45] LABS: Basophils % (Manual) 0 % (0.0-1.8); Blastocytes % (Manual) 0 %; Eosinophils % (Manual) 0 % (0.0-4.3)
[2016-12-03 08:47] LABS: Anisocytosis 1+; Elliptocytes Few; Hypochromasia 1+
[2016-12-03 08:48] LABS: Large Platelets Few; Toxic Vacuolation Few
--- NOTE | 2016-12-03 09:25 | Progress Note ---
Assessment and Plan Impression: * TREMAINE on CKD stage 4 * hyperkalemia * asystole arrest * respiratory failure * Foot/leg ulcers * HTN * DM type 2 * CAD * PVD * COPD * Hypotension * thrombocytopenia Plan: * strict i/os * cr is stable today * decr plts noted, ? 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 Some axis deviation as well) Gastrointestinal: normoactive bowel sounds, soft Extremities: no edema, cool Gait: other (unable to assess) unable to assess - Vital Signs Vital signs: Vital Signs - 12hr 12/02/16 12/02/16 12/02/16 21:31 21:41 21:51 Temperature Pulse Rate 80 84 83 Pulse Rate [ Left Radial] Respiratory 19 19 19 Rate Blood Pressure 109/84 109/84 109/84 O2 Sat by Pulse Oximetry 12/02/16 12/02/16 12/02/16 22:00 22:11 22:21 Temperature Pulse Rate 81 79 83 Pulse Rate [ 83 Left Radial] Respiratory 18 18 17 Rate Blood Pressure 108/78 108/78 108/78 O2 Sat by Pulse 91 91 90 Oximetry 12/02/16 12/02/16 12/02/16 22:31 22:41 22:51 Temperature Pulse Rate 82 81 82 Pulse Rate [ Left Radial] Respiratory 19 18 17 Rate Blood Pressure 108/78 108/78 108/78 O2 Sat by Pulse 91 89 95 Oximetry 12/02/16 12/02/16 12/02/16 23:00 23:11 23:21 Temperature Pulse Rate 82 72 82 Pulse Rate [ Left Radial] Respiratory 19 18 18 Rate Blood Pressure 118/76 118/76 118/76 O2 Sat by Pulse 99 100 100 Oximetry 12/02/16 12/02/16 12/02/16 23:23 23:31 23:41 Temperature Pulse Rate 80 88 81 Pulse Rate [ Left Radial] Respiratory 20 20 20 Rate Blood Pressure 118/76 118/76 118/76 O2 Sat by Pulse 100 100 100 Oximetry 12/02/16 12/03/16 12/03/16 23:51 00:01 00:11 Temperature Pulse Rate 80 82 80 Pulse Rate [ Left Radial] Respiratory 19 19 18 Rate Blood Pressure 118/76 114/81 118/76 O2 Sat by Pulse 97 93 91 Oximetry 12/03/16 12/03/16 12/03/16 00:21 00:24 00:31 Temperature 97.3 F L Pulse Rate 81 81 Pulse Rate [ Left Radial] Respiratory 19 20 Rate Blood Pressure 118/76 118/76 O2 Sat by Pulse 90 91 Oximetry 12/03/16 12/03/16 12/03/16 00:41 00:51 01:00 Temperature Pulse Rate 82 73 80 Pulse Rate [ Left Radial] Respiratory 21 23 20 Rate Blood Pressure 118/76 118/76 90/59 O2 Sat by Pulse 92 92 94 Oximetry 12/03/16 12/03/16 12/03/16 01:11 01:21 01:31 Temperature Pulse Rate 81 75 80 Pulse Rate [ Left Radial] Respiratory 22 25 H 26 H Rate Blood Pressure 90/59 114/81 114/81 O2 Sat by Pulse 93 94 93 Oximetry 12/03/16 12/03/16 12/03/16 01:41 01:51 02:00 Temperature Pulse Rate 80 81 79 Pulse Rate [ Left Radial] Respiratory 24 23 26 H Rate Blood Pressure 114/81 114/81 88/65 O2 Sat by Pulse 93 94 95 Oximetry 12/03/16 12/03/16 12/03/16 02:11 02:21 02:31 Temperature Pulse Rate 82 86 85 Pulse Rate [ Left Radial] Respiratory 27 H 28 H 26 H Rate Blood Pressure 88/65 88/65 88/65 O2 Sat by Pulse 95 97 96 Oximetry 12/03/16 12/03/16 12/03/16 02:41 02:51 03:00 Temperature Pulse Rate 85 87 86 Pulse Rate [ Left Radial] Respiratory 29 H 30 H 30 H Rate Blood Pressure 88/65 99/69 106/62 O2 Sat by Pulse 96 97 97 Oximetry 12/03/16 12/03/16 12/03/16 03:11 03:21 03:31 Temperature Pulse Rate 90 88 84 Pulse Rate [ Left Radial] Respiratory 28 H 29 H 31 H Rate Blood Pressure 106/62 106/62 106/62 O2 Sat by Pulse 98 98 98 Oximetry 12/03/16 12/03/16 12/03/16 03:41 03:45 03:51 Temperature Pulse Rate 81 82 81 Pulse Rate [ Left Radial] Respiratory 31 H 32 H Rate Blood Pressure 106/62 106/62 106/62 O2 Sat by Pulse 98 98 97 Oximetry 12/03/16 12/03/16 12/03/16 04:00 04:06 04:11 Temperature 97.6 F Pulse Rate 88 78 Pulse Rate [ Left Radial] Respiratory 31 H 30 H Rate Blood Pressure 96/65 96/65 O2 Sat by Pulse 97 97 Oximetry 12/03/16 12/03/16 12/03/16 04:21 04:31 04:41 Temperature Pulse Rate 80 85 85 Pulse Rate [ Left Radial] Respiratory 31 H 31 H 31 H Rate Blood Pressure 96/65 96/65 104/70 O2 Sat by Pulse 98 99 99 Oximetry 12/03/16 12/03/16 12/03/16 04:51 05:00 05:11 Temperature Pulse Rate 85 85 86 Pulse Rate [ Left Radial] Respiratory 33 H 33 H 35 H Rate Blood Pressure 104/70 111/81 111/81 O2 Sat by Pulse 99 99 99 Oximetry 12/03/16 12/03/16 12/03/16 05:21 05:31 05:41 Temperature Pulse Rate 87 97 H 86 Pulse Rate [ Left Radial] Respiratory 35 H 38 H 32 H Rate Blood Pressure 111/81 111/81 111/81 O2 Sat by Pulse 100 100 99 Oximetry 12/03/16 12/03/16 12/03/16 05:51 06:00 06:11 Temperature Pulse Rate 90 90 87 Pulse Rate [ Left Radial] Respiratory 32 H 28 H 26 H Rate Blood Pressure 111/81 115/73 115/73 O2 Sat by Pulse 100 100 100 Oximetry 12/03/16 12/03/16 12/03/16 06:21 06:31 06:41 Temperature Pulse Rate 91 H 92 H 90 Pulse Rate [ Left Radial] Respiratory 28 H 28 H 31 H Rate Blood Pressure 115/73 115/73 115/73 O2 Sat by Pulse 100 100 100 Oximetry 12/03/16 12/03/16 12/03/16 06:51 07:00 07:11 Temperature Pulse Rate 87 92 H 89 Pulse Rate [ Left Radial] Respiratory 26 H 34 H 35 H Rate Blood Pressure 115/73 118/62 118/62 O2 Sat by Pulse 100 100 100 Oximetry 12/03/16 12/03/16 12/03/16 07:21 07:31 07:41 Temperature Pulse Rate 78 91 H 86 Pulse Rate [ Left Radial] Respiratory 22 37 H 32 H Rate Blood Pressure 118/62 118/62 118/62 O2 Sat by Pulse 100 100 100 Oximetry 12/03/16 12/03/16 12/03/16 07:51 08:00 08:11 Temperature Pulse Rate 95 H 86 64 Pulse Rate [ Left Radial] Respiratory 38 H 32 H 36 H Rate Blood Pressure 118/62 120/81 120/81 O2 Sat by Pulse 100 100 100 Oximetry 12/03/16 08:21 Temperature Pulse Rate 88 Pulse Rate [ Left Radial] Respiratory 37 H Rate Blood Pressure 120/81 O2 Sat by Pulse 100 Oximetry - Lab 12/03/16 06:04 12/03/16 06:04 Most recent lab results Calcium 7.6 mg/dL (8.4-10.2) L 12/03/16 06:04 Urine Creatinine 78.6 mg/dL (0.1-20.0) H 11/30/16 10:00 Urine Sodium 10 mEq/L 11/30/16 10:00
[2016-12-03] MEDS ORDERED: KIONEX PO ONE (09:28)
[2016-12-03] MEDS ORDERED: CALCIUM GLUCONATE 1,000 MG in NACL 0.9% 100 ML IV ONE (09:30)
--- NOTE | 2016-12-03 09:44 | XRay Report ---
AP CHEST: HISTORY: Acute respiratory failure Lines and support devices are unchanged since yesterday's exam. Cardiomegaly is stable. Perhaps mild improvement in pulmonary venous congestion is demonstrated. The lungs are clear. No large pleural effusion or pneumothorax. IMPRESSION: Mild improvement in vascular congestion.
[2016-12-03] MEDS ORDERED: SODIUM BICARBONATE 150 MEQ in D5W 1,000 ML IV SCH (10:00)
--- NOTE | 2016-12-03 11:57 | Consultation ---
Past History Past Medical History: CAD, diabetes, hypertension, hyperlipidemia, PVD, renal failure (not presently on hemodialysis) Past Surgical History: CABG (1996), Other (AICD placement, back sugery 1996) Social history: lives with family, full code. denies: smoking (quit x20 years, ), alcohol abuse, prescription drug abuse Family history: CAD, cancer, diabetes, hypertension Medications and Allergies Allergies Allergy/AdvReac Type Severity Reaction Status Date / Time lisinopril Allergy Mild Unknown Verified 08/08/14 11:26 pollen extracts AdvReac COUGH,SNEEZ Unverified 11/28/16 13:22 E Home Medications Medication Instructions Recorded Confirmed Last Taken Type Carvedilol [Coreg] 25 mg PO BID 08/21/13 08/08/14 05/29/14 History Doxazosin Mesylate 8 mg PO DAILY 08/21/13 08/08/14 05/29/14 History Insulin Glargine,Hum.rec.anlog 30 unit PO QDAY 08/21/13 08/08/14 05/28/14 History [Lantus Solostar] Isosorbide Dinitrate 30 mg PO DAILY 08/21/13 08/08/14 05/29/14 History Ranolazine [Ranexa] 1,000 mg PO BID 08/21/13 08/08/14 05/29/14 History Atorvastatin Calcium [Lipitor] 40 mg PO DAILY 12/25/13 08/08/14 03/26/14 History 40mg amLODIPine [Norvasc] 5 mg PO DAILY 03/27/14 08/08/14 05/29/14 History Epoetin Shorty [Procrit] 4,000 unit SQ QMONTH 08/08/14 08/08/14 08/04/14 History 4000 units Multivitamin [Multi-Vitamin Daily] 1 tab PO DAILY 08/08/14 08/08/14 Unknown History Albuterol Sulfate [Proventil HFA] 2 puff IH Q4H PRN #1 pump 08/13/14 Unknown Rx Insulin Aspart [NovoLOG 100 5 unit SQ AC #1 vial 08/13/14 Unknown Rx UNITS/ML] Metolazone 5 mg PO DAILY 30 Days 08/13/14 Unknown Rx Active Meds: Active Medications Acetaminophen (Tylenol) 650 mg PO Q4H PRN PRN Reason: Pain MILD(1-3)/Fever >100.5/DANG Last Admin: 11/28/16 18:51 Dose: 650 mg Albuterol (Proventil) 2.5 mg IH Q4HRT PRN PRN Reason: Shortness Of Breath Last Admin: 12/02/16 12:50 Dose: 2.5 mg Atorvastatin Calcium (Lipitor) 40 mg PO QHS KYLAH Last Admin: 12/01/16 21:28 Dose: 40 mg Bisacodyl (Dulcolax) 10 mg CA QDAY PRN PRN Reason: Constipation unrelieved by MOM Dextrose (D50w (25gm)) 50 ml IV PRN PRN PRN Reason: Hypoglycemia Last Admin: 12/03/16 06:30 Dose: 50 ml Heparin Sodium (Porcine) (Heparin) 5,000 unit SUB-Q Q8HR KYLAH Ampicillin Sodium/Sulbactam Sodium (Unasyn/Ns 3 Gm/100 Ml) 3 gm in 100 mls @ 100 mls/hr IV Q12H KYLAH PRN Reason: Protocol Last Admin: 12/02/16 16:07 Dose: 100 mls/hr Vancomycin HCl (Vancomycin/Ns 1 Gm/250 Ml) 1 gm in 250 mls @ 166.667 mls/hr IV Q24H KYLAH Last Admin: 12/01/16 17:34 Dose: 166.667 mls/hr Norepinephrine (Levophed Drip 4 Mg/Ns 250 Ml) 4 mg in 250 mls @ 7.5 mls/hr IV TITR KYLAH; 2 MCG/MIN PRN Reason: Protocol Sodium Bicarbonate 150 meq/ (Dextrose) 1,150 mls @ 125 mls/hr IV DIRECT KYLAH Ondansetron HCl (Zofran) 4 mg IV Q8H PRN PRN Reason: Nausea And Vomiting Last Admin: 12/01/16 17:45 Dose: 4 mg Sodium Hypochlorite (Dakin's Half Strength) 1 applic TP BID [facility] Last Admin: 12/03/16 08:06 Dose: Not Given Vancomycin HCl (Vancomycin Pharmacy To Dose) 1 each IV PKCONSULT KYLAH PRN Reason: Protocol Physical Examination Vital Signs Pulse Ox 97 11/28/16 14:06 Results 12/03/16 06:04 12/03/16 06:04 Cardiac Enzymes 12/02/16 Range/Units 19:23 AST 36 (5-40) units/L CK-MB (CK-2) 1.9 (0.0-4.0) ng/mL Coagulation 12/02/16 Range/Units 19:20 PT 16.6 H (12.2-14.9) Sec. INR 1.27 H (0.87-1.13) APTT 45.4 H (24.2-36.6) Sec. CBC 12/02/16 12/03/16 Range/Units 19:23 06:04 WBC 13.8 H 45.9 H* (4.5-11.0) K/mm3 RBC 4.00 3.89 (3.65-5.03) M/mm3 Hgb 10.9 L 10.5 L (11.8-15.2) gm/dl Hct 34.6 L 32.9 L (35.5-45.6) % Plt Count 106 L 101 L (140-440) K/mm3 Comprehensive Metabolic Panel 12/02/16 12/03/16 Range/Units 19:23 06:04 Sodium 137 128 L D (137-145) mmol/L Potassium 4.0 6.8 H* D (3.6-5.0) mmol/L Chloride 95.8 L 94.2 L (98-107) mmol/L Carbon Dioxide 22 17 L (22-30) mmol/L BUN 75 H 77 H (9-20) mg/dL Creatinine 2.8 H 2.6 H (0.8-1.5) mg/dL Glucose 105 H 99 (75-100) mg/dL Calcium 7.8 L 7.6 L (8.4-10.2) mg/dL AST 36 (5-40) units/L ALT 30 (7-56) units/L Alkaline Phosphatase 111 (35-129) units/L Total Protein 6.0 L (6.3-8.2) g/dL Albumin 2.7 L (3.9-5) g/dL Assessment and Plan Detailed Cardiology consult dictated.
[2016-12-03] MEDS: UNASYN/NS 3 GM/100 ML 3 GM/100 ML BAG IV SCH ×3 (13:00→23:27)
[2016-12-03 13:37] LABS: Diff Status Complete; Platelet Estimate Consistent w Auto
[2016-12-03] MEDS ORDERED: fentaNYL DRIP Premix 2,000 MCG/100 ML BAG IV SCH (14:00)
[2016-12-03] MEDS: HEPARIN SUB-Q SCH (14:00)
[2016-12-03] MEDS: PROVENTIL IH PRN (14:03)
--- NOTE | 2016-12-03 14:57 | Progress Note ---
Assessment and Plan Assessment and plan: Last night the patient has difficulty of breathing while eating and then he went to asystole and He was successfully resuscitated then transfer to the ICU. Sean has VF while he was resuscitated and He was shocked. The patient was empirically treated with heparin drip for PE and discontinued this morning. Asystole, Respiratory failure secondary to chocking and aspiration - S/P in house hospital cardiac arrest - Intubated on mechanical ventilation - Slight elevation in troponin - We d/yasmeen the heparin drip - continue the current IV antibiotics Lactic acidosis - on sodium bicarbonate and IV fluids - We'll repeat lactic acid Bilateral DM leg ulcer - Pending sensitivity DM - Sliding scale insulin Acute on chronic kidney disease Hypertension CAD Chronic systolic heart failure - Patient is on Unasyn and vancomycin, ID consult appreciated - Doppler ultrasound of the legs is normal - Pulmonary consult appreciated - Nephrology consult appreciated DVT prophylaxis - Heparin Disposition Continue ICU care History Interval history: Patient was seen and evaluated this morning, he intubated and on mechanical ventilation. Hospitalist Physical - Physical exam Narrative exam: Intubated and on mechanical ventilation. The patient appeared well nourished and normally developed. Vital signs as documented. Head exam is unremarkable. No scleral icterus . Neck is without jugular venous distension, thyromegaly, or carotid bruits. Lungs are clear to auscultation. Cardiac exam reveals regular rate and Rhythm. First and second heart sounds normal. No murmurs, rubs or gallops. Abdominal exam reveals normal bowel sounds, no masses, no organomegaly and no aortic enlargement. Extremities significant for bilateral leg and so around the calf area with offensive discharge. [employer]: Sedated. - Constitutional Vitals: Temp Pulse Resp BP Pulse Ox 97.9 F 83 16 87/51 100 12/03/16 12:00 12/03/16 14:31 12/03/16 14:31 12/03/16 14:31 12/03/16 14:31 General appearance: Present: no acute distress (intubated, FiO2 60%) Results - Labs CBC & Chem 7: 12/03/16 06:04 12/03/16 06:04 Labs: Laboratory Last Values WBC 45.9 K/mm3 (4.5-11.0) H* 12/03/16 06:04 RBC 3.89 M/mm3 (3.65-5.03) 12/03/16 06:04 Hgb 10.5 gm/dl (11.8-15.2) L 12/03/16 06:04 Hct 32.9 % (35.5-45.6) L 12/03/16 06:04 MCV 85 fl (84-94) 12/03/16 06:04 MCH 27 pg (28-32) L 12/03/16 06:04 MCHC 32 % (32-34) 12/03/16 06:04 RDW 16.6 % (13.2-15.2) H 12/03/16 06:04 Plt Count 101 K/mm3 (140-440) L 12/03/16 06:04 Lymph % (Auto) 2.4 % (13.4-35.0) L 11/29/16 08:37 [place] % (Auto) 8.5 % (0.0-7.3) H 11/29/16 08:37 Eos % (Auto) 0.1 % (0.0-4.3) 11/29/16 08:37 Baso % (Auto) 0.0 % (0.0-1.8) 11/29/16 08:37 Lymph # 0.2 K/mm3 (1.2-5.4) L 11/29/16 08:37 [place] # 0.9 K/mm3 (0.0-0.8) H 11/29/16 08:37 Eos # 0.0 K/mm3 (0.0-0.4) 11/29/16 08:37 Baso # 0.0 K/mm3 (0.0-0.1) 11/29/16 08:37 Add Manual Diff Complete 12/03/16 06:04 Total Counted 100 12/03/16 06:04 Seg Neutrophils % Surveillance Technician 12/03/16 06:04 Seg Neuts % (Manual) 68.0 % (40.0-70.0) 12/03/16 06:04 Band Neutrophils % 16.0 % 12/03/16 06:04 Lymphocytes % (Manual) 8.0 % (13.4-35.0) L 12/03/16 06:04 Reactive Lymphs % (Man) 0 % 12/03/16 06:04 Monocytes % (Manual) 8.0 % (0.0-7.3) H 12/03/16 06:04 Eosinophils % (Manual) 0 % (0.0-4.3) 12/03/16 06:04 Basophils % (Manual) 0 % (0.0-1.8) 12/03/16 06:04 Metamyelocytes % 0 % 12/03/16 06:04 Myelocytes % 0 % 12/03/16 06:04 Promyelocytes % 0 % 12/03/16 06:04 Blast Cells % 0 % 12/03/16 06:04 Nucleated RBC % Not Reportable 12/03/16 06:04 Seg Neutrophils # 9.2 K/mm3 (1.8-7.7) H 11/29/16 08:37 Seg Neutrophils # Man 31.2 K/mm3 (1.8-7.7) H 12/03/16 06:04 Band Neutrophils # 7.3 K/mm3 12/03/16 06:04 Lymphocytes # (Manual) 3.7 K/mm3 (1.2-5.4) 12/03/16 06:04 Abs React Lymphs (Man) 0.0 K/mm3 12/03/16 06:04 Monocytes # (Manual) 3.7 K/mm3 (0.0-0.8) H 12/03/16 06:04 Eosinophils # (Manual) 0.0 K/mm3 (0.0-0.4) 12/03/16 06:04 Basophils # (Manual) 0.0 K/mm3 (0.0-0.1) 12/03/16 06:04 Metamyelocytes # 0.0 K/mm3 12/03/16 06:04 Myelocytes # 0.0 K/mm3 12/03/16 06:04 Promyelocytes # 0.0 K/mm3 12/03/16 06:04 Blast Cells # 0.0 K/mm3 12/03/16 06:04 WBC Morphology Not Reportable 12/03/16 06:04 Hypersegmented Neuts Not Reportable 12/03/16 06:04 Hyposegmented Neuts Not Reportable 12/03/16 06:04 Hypogranular Neuts Not Reportable 12/03/16 06:04 Smudge Cells Not Reportable 12/03/16 06:04 Toxic Granulation Not Reportable 12/03/16 06:04 Toxic Vacuolation Few 12/03/16 06:04 Dohle Bodies Not Reportable 12/03/16 06:04 Pelger-Huet Anomaly Not Reportable 12/03/16 06:04 Demetra Rods Not Reportable 12/03/16 06:04 Platelet Estimate Consistent w auto 12/03/16 06:04 Clumped Platelets Not Reportable 12/03/16 06:04 Plt Clumps, EDTA Not Reportable 12/03/16 06:04 Large Platelets Few 12/03/16 06:04 Giant Platelets Not Reportable 12/03/16 06:04 Platelet Satelliting Not Reportable 12/03/16 06:04 Plt Morphology Comment Not Reportable 12/03/16 06:04 RBC Morphology Not Reportable 12/03/16 06:04 Dimorphic RBCs Not Reportable 12/03/16 06:04 Polychromasia Not Reportable 12/03/16 06:04 Hypochromasia 1+ 12/03/16 06:04 Poikilocytosis Not Reportable 12/03/16 06:04 Anisocytosis 1+ 12/03/16 06:04 Microcytosis Not Reportable 12/03/16 06:04 Macrocytosis Not Reportable 12/03/16 06:04 Spherocytes Not Reportable 12/03/16 06:04 Pappenheimer Bodies Not Reportable 12/03/16 06:04 Sickle Cells Not Reportable 12/03/16 06:04 Target Cells Not Reportable 12/03/16 06:04 Tear Drop Cells Not Reportable 12/03/16 06:04 Ovalocytes Not Reportable 12/03/16 06:04 Helmet Cells Not Reportable 12/03/16 06:04 [place] Bodies Not Reportable 12/03/16 06:04 [place] Rings Not Reportable 12/03/16 06:[address] Cells Not Reportable 12/03/16 06:04 Bite Cells Not Reportable 12/03/16 06:04 Crenated Cell Not Reportable 12/03/16 06:04 Elliptocytes Few 12/03/16 06:04 Acanthocytes (Spur) Not Reportable 12/03/16 06:04 Rouleaux Not Reportable 12/03/16 06:04 Hemoglobin C Crystals Not Reportable 12/03/16 06:04 Schistocytes Not Reportable 12/03/16 06:04 Malaria parasites Not Reportable 12/03/16 06:04 [place] Bodies Not Reportable 12/03/16 06:04 Hem Pathologist Commnt No 12/03/16 06:04 PT 16.6 Sec. (12.2-14.9) H 12/02/16 19:20 INR 1.27 (0.87-1.13) H 12/02/16 19:20 APTT 45.4 Sec. (24.2-36.6) H 12/02/16 19:20 Heparin Anti-Xa Level < 0.10 U.I./ml (0.3-0.7) L 12/03/16 01:15 POC ABG pH 7.361 (7.35-7.45) 12/03/16 04:15 POC ABG pCO2 35.5 (35-45) 12/03/16 04:15 POC ABG pO2 72 (80-105) L 12/03/16 04:15 POC ABG HCO3 20.1 12/03/16 04:15 POC ABG Total CO2 21 12/03/16 04:15 POC ABG O2 Sat 94 12/03/16 04:15 POC ABG Base Excess -5 12/03/16 04:15 FiO2 70 % 12/03/16 04:15 Sodium 128 mmol/L (137-145) L D 12/03/16 06:04 Potassium 6.8 mmol/L (3.6-5.0) H* D 12/03/16 06:04 Chloride 94.2 mmol/L (98-107) L 12/03/16 06:04 Carbon Dioxide 17 mmol/L (22-30) L 12/03/16 06:04 Anion Gap 24 mmol/L 12/03/16 06:04 BUN 77 mg/dL (9-20) H 12/03/16 06:04 Creatinine 2.6 mg/dL (0.8-1.5) H 12/03/16 06:04 Estimated GFR 30 ml/min 12/03/16 06:04 BUN/Creatinine Ratio 29.61 % 12/03/16 06:04 Glucose 99 mg/dL (75-100) 12/03/16 06:04 POC Glucose 107 (70-105) H 12/03/16 08:13 Hemoglobin A1c 10.6 % (4-6) H 11/28/16 16:02 Lactic Acid 3.40 mmol/L (0.7-2.0) H* 12/03/16 09:44 Calcium 7.6 mg/dL (8.4-10.2) L 12/03/16 06:04 Total Bilirubin 2.70 mg/dL (0.1-1.2) H 12/02/16 19:23 AST 36 units/L (5-40) 12/02/16 19:23 ALT 30 units/L (7-56) 12/02/16 19:23 Alkaline Phosphatase 111 units/L (35-129) 12/02/16 19:23 Total Creatine Kinase 59 units/L (55-170) 12/02/16 19:23 CK-MB (CK-2) 1.9 ng/mL (0.0-4.0) 12/02/16 19:23 CK-MB (CK-2) Rel Index 3.2 (0-4) 12/02/16 19:23 Troponin T 0.098 ng/mL (0.00-0.029) H 12/03/16 08:01 Total Protein 6.0 g/dL (6.3-8.2) L 12/02/16 19:23 Albumin 2.7 g/dL (3.9-5) L 12/02/16 19:23 Albumin/Globulin Ratio 0.8 % 12/02/16 19:23 Triglycerides 72 mg/dL (2-149) 11/30/16 20:37 Cholesterol 132 mg/dL (50-199) 11/30/16 20:37 LDL Cholesterol Direct 82 mg/dL (50-130) 11/30/16 20:37 HDL Cholesterol 36 mg/dL (40-59) L 11/30/16 20:37 Cholesterol/HDL Ratio 3.66 % 11/30/16 20:37 Urine Color Yellow (Yellow) 11/30/16 10:00 Urine Turbidity Clear (Clear) 11/30/16 10:00 Urine pH 6.0 (5.0-7.0) 11/30/16 10:00 Ur Specific [place] 1.018 (1.003-1.030) 11/30/16 10:00 Urine Protein 30 mg/dl mg/dL (Negative) 11/30/16 10:00 Urine Glucose (UA) Neg mg/dL (Negative) 11/30/16 10:00 Urine Ketones Neg mg/dL (Negative) 11/30/16 10:00 Urine Blood Neg (Negative) 11/30/16 10:00 Urine Nitrite Neg (Negative) 11/30/16 10:00 Urine Bilirubin Neg (Negative) 11/30/16 10:00 Urine Urobilinogen < 2.0 mg/dL (<2.0) 11/30/16 10:00 Ur Leukocyte Esterase Tr (Negative) 11/30/16 10:00 Urine WBC (Auto) 2.0 /HPF (0.0-6.0) 11/30/16 10:00 Urine RBC (Auto) < 1.0 /HPF (0.0-6.0) 11/30/16 10:00 U Epithel Cells (Auto) < 1.0 /HPF (0-13.0) 11/30/16 10:00 Urine Eosinophils None seen (None Seen) 11/30/16 10:00 Urine Creatinine 78.6 mg/dL (0.1-20.0) H 11/30/16 10:00 Urine Sodium 10 mEq/L 11/30/16 10:00 Vancomycin Trough 19.0 ug/mL (5.0-20.0) 12/03/16 06:04 Random Vancomycin 7.9 ug/mL (0-40.0) 11/30/16 08:53 Leukocytosis, hyperkalemia
[2016-12-03] MEDS: LEVOPHED DRIP 4 MG/NS 250 ML 4 MG/250 ML BAG IV SCH (15:25)
[2016-12-03 18:12] LABS: BUN/Creatinine Ratio 27.35; Calcium 7.4 mg/dL (8.4-10.2); Chloride 95.8 mmol/L (98-107); Potassium 4.7 mmol/L (3.6-5.0)
[2016-12-03 18:16] LABS: Hematocrit 27.3 % (35.5-45.6); Hemoglobin 8.6 gm/dl (11.8-15.2); Mean Corpuscular HGB Conc 31 % (32-34); Mean Corpuscular Hemoglobin 27 pg (28-32); Mean Corpuscular Volume 87 fl (84-94); Red Blood Count 3.16 M/mm3 (3.65-5.03); Red Cell Distribution Width 16.9 % (13.2-15.2)
[2016-12-03 18:22] LABS: White Blood Count 22.2 K/mm3 (4.5-11.0)
[2016-12-03 18:24] LABS: Platelet Count 81 K/mm3 (140-440)
[2016-12-03] MEDS: VANCOMYCIN/NS 1 GM/250 ML 1 GM/250 ML BAG IV SCH ×3 (19:57→20:02)
[2016-12-03] MEDS ORDERED: AFRIN NS ONE (20:16)
[2016-12-03 20:40] LABS: Hematocrit 26.2 % (35.5-45.6); Hemoglobin 8.4 gm/dl (11.8-15.2); Mean Corpuscular HGB Conc 32 % (32-34); Mean Corpuscular Hemoglobin 28 pg (28-32); Mean Corpuscular Volume 86 fl (84-94); Red Blood Count 3.04 M/mm3 (3.65-5.03); Red Cell Distribution Width 16.6 % (13.2-15.2); White Blood Count 18.9 K/mm3 (4.5-11.0)
[2016-12-03 21:11] LABS: Platelet Count 81 K/mm3 (140-440)
[2016-12-03 21:50] LABS: Basophils % (Manual) 0 % (0.0-1.8); Blastocytes % (Manual) 0 %; Eosinophils % (Manual) 0 % (0.0-4.3)
[2016-12-03 21:51] LABS: Anisocytosis 1+; Poikilocytosis 2+; Polychromasia 1+; Target Cells Few
[2016-12-03 21:52] LABS: Crenated RBC 2+
[2016-12-03 21:53] LABS: Diff Status Complete; Elliptocytes Few; Platelet Estimate Appears Decreased; Schistocytes Few
--- NOTE | 2016-12-03 22:24 | Consultation ---
REFERRING PHYSICIAN: Dr. Harrington. REASON FOR THE CONSULT: Cardiac arrest. HISTORY OF PRESENT ILLNESS: A 71-year-old thin built -[place] gentleman with history of multiple medical problems that is hypertension, type 2 diabetes mellitus, hyperlipidemia, known coronary artery disease, history of CABG surgery in the past, ischemic cardiomyopathy, history of AICD placement, who was admitted with multiple infected ulcers in the legs. Bone cultures were drawn and he was started on antibiotics. Apparently yesterday when he was eating, he suddenly became unresponsive, possibly secondary to aspiration. He had a cardiac arrest and he was transferred to Intensive Care Unit. At this time, he is on assisted mechanical ventilation. His troponin was mildly increased at 0.098. His potassium went up to 6.8. Initially WBC count was it was 13.8, which went up to 45.9. He has been unresponsive. He is on Levophed for maintaining his blood pressure (the hypotension could be secondary to sepsis and probably cardiomyopathy). He has chronic kidney disease also. Before his rhythm was ventricular fibrillation before he was shocked. PAST MEDICAL HISTORY: History of multiple medical problems as described above. He had as back surgery during 1996, CABG surgery during 1996, AICD placement in the past. SOCIAL HISTORY: He was a smoker in the past. He quit smoking 20 years ago. There is also a history of alcohol and prescription drug abuse. FAMILY HISTORY: History of hypertension, diabetes and coronary artery disease. ALLERGIES: LISINOPRIL MEDICATIONS: Proventil inhaler p.r.n., IV Unasyn 3 grams q.12h., atorvastatin 40 mg p.o. at bedtime, intravenous dextrose p.r.n. for hypoglycemia, heparin 5000 units subQ q.8 hours, intravenous Levophed 2 mcg per minute, intravenous vancomycin 1 gram IV every 24 hours. REVIEW OF SYSTEMS: CARDIOVASCULAR: As described in the history. METABOLISM AND ENDOCRINOLOGY: As described in the history. PULMONARY: As described in the history. SKIN: As described in the history. HEMATOPOIETIC SYSTEM: The patient is mildly anemia and also thrombocytopenic. RENAL: As described in the history. BONE AND JOINTS: As described in the history. Review of rest of the 10 systems is negative. Of note, the patient has history of severe peripheral vascular disease. PHYSICAL EXAMINATION: GENERAL: A 71-year-old thin built, -[place] gentleman, unresponsive, responding only to painful stimuli, intubated on assisted mechanical ventilation. He is on 70% FiO2 and PEEP of 10. Not responding to commands or questions. HEENT: Negative. NECK: Supple, no JVD, no bruit, no thyromegaly. HEART: AICD in situ over the left upper chest. Point of maximum impulse down PMI: Down and out, heaving in nature. no palpable thrills. Auscultation of the heart reveals S1, S2. He had grade 2 to 3/6 ejection systolic murmur is heard over the precardium, peripheral pulses could not be felt in both feet and legs are cold. Dressing in situ or ulcers in both legs, bilateral trace edema. LUNGS: Air entry equal. No bronchial breathing, no wheezing. ABDOMEN: Soft, benign. No organomegaly. SKIN: As described above. BONE AND JOINTS: Negative. LABORATORY DATA: WBC as described in the history. Hemoglobin and hematocrit 10.5 and 32.9 respectively, platelet count decreased to 101, potassium 6.8, BUN is 77, creatinine 2.6. Troponin as described in the history. Sodium decreased to 128. Chest x-ray: Marked cardiomegaly, AICD in situ, clear lungs. EKG done 12/02/2016 at 7:41 p.m. ventricular demand pacemaker rhythm with frequent PVCs. No other comments can be made. IMPRESSION: 1. Status post cardiorespiratory arrest. 2. Possible aspiration, possible septic shock. 3. History of ischemic cardiomyopathy, history of AICD placement. 4. History of chronic smoking in the past. 5. Multiple other medical problems, hypertension, type 2 diabetes mellitus and hyperlipidemia. 6. Known coronary artery disease, history of CABG surgery. 7. Multiple ulcers of the lower extremities in the setting of severe peripheral vascular disease. 8. History of ETOH abuse in the past. RECOMMENDATIONS: 1. To continue ventilatory support. 2. Continue vasopressors and intravenous antibiotics. 3. I will order a bedside echocardiogram to assess ventricular dimension and function and to rule out pericardial effusion. The patient's vital signs at this time, pulse 88 per minute it is irregular most likely secondary to PVCs. Blood pressure 98/61 mmHg. The patient has multiple critical problems and the prognosis is guarded. Thank you again. We will follow. JOB# [id number] [facility]
[2016-12-04] MEDS: LEVOPHED DRIP 4 MG/NS 250 ML 4 MG/250 ML BAG IV SCH ×3 (00:05→18:36)
[2016-12-04 05:50] LABS: ISTAT Base Excess -6; ISTAT HCO3 20.4; ISTAT PCO2 43.8 (35-45); ISTAT PH 7.277 (7.35-7.45); ISTAT PO2 198 (80-105); ISTAT SO2 100; ISTAT TCO2 22
[2016-12-04 06:15] LABS: Hematocrit 26.1 % (35.5-45.6); Hemoglobin 8.7 gm/dl (11.8-15.2); Mean Corpuscular HGB Conc 33 % (32-34); Mean Corpuscular Hemoglobin 28 pg (28-32); Mean Corpuscular Volume 85 fl (84-94); Red Blood Count 3.07 M/mm3 (3.65-5.03); Red Cell Distribution Width 16.5 % (13.2-15.2); White Blood Count 17.8 K/mm3 (4.5-11.0)
[2016-12-04 06:35] LABS: Platelet Count 93 K/mm3 (140-440)
[2016-12-04 07:05] LABS: BUN/Creatinine Ratio 28.61; Calcium 7.7 mg/dL (8.4-10.2); Potassium 4.8 mmol/L (3.6-5.0)
[2016-12-04 07:59] LABS: Basophils % (Manual) 0 % (0.0-1.8); Blastocytes % (Manual) 0 %; Eosinophils % (Manual) 0 % (0.0-4.3)
[2016-12-04 08:00] LABS: Anisocytosis 1+; Elliptocytes Rare; Poikilocytosis 1+; Polychromasia 1+; Schistocytes Few; Target Cells Rare
[2016-12-04 08:01] LABS: Diff Status Complete
[2016-12-04 08:04] LABS: Platelet Estimate Consistent w Auto
[2016-12-04] MEDS: DAKIN'S HALF STRENGTH TP SCH (10:01)
--- NOTE | 2016-12-04 10:04 | XRay Report ---
AP CHEST :12/04/16 CLINICAL: Intubated.Follow up respiratory failure. COMPARISON:The previous day. FINDINGS: The endotracheal tube is in satisfactory position. Stable cardiomegaly with pacer leads in heart. Central vascular congestion and decreased bilateral multilobar interstitial opacities. No pulmonary consolidation. No pneumothorax. IMPRESSION: Congestive heart failure with mild interstitial pulmonary edema and slight improvement.
--- NOTE | 2016-12-04 10:54 | Progress Note ---
Assessment and Plan Impression: * TREMAINE on CKD stage 4--now with ATN after asystole arrest * hyperkalemia * asystole arrest * respiratory failure * Foot/leg ulcers * HTN * DM type 2 * CAD * PVD * COPD * Hypotension * thrombocytopenia Plan: * strict i/os * cr is worse today * k and co2 improved, continue ivfs * may need felt hanger in next 24hrs if worsening renal function * sepsis noted, supportive care * r/o pulm embolism * treat k medically, felt hanger if refractory * questionable drug allergy * hold bp meds * iv abx for DM ulcers * continue ivfs * follow up renal us/UA noted * dose meds crcl 20ml/min * no indication for felt hanger today Subjective Date of service: 12/04/16 Principal diagnosis: bilateral leg wounds; TREMAINE Interval history: resting in bed, non responsive, events noted Objective - Exam Narrative Exam: General appearance: comatose, appears uncomfortable Eyes: other (currently rolled back into his head) ENT: other (orally intubated) Neck: supple Ascultation: Bilateral: rales (anteriorly) Percussion: Bilateral: not dull Cardiovascular: other (Appears to be a paced rhythm with frequent PVC's. Some axis deviation as well) Gastrointestinal: normoactive bowel sounds, soft Extremities: no edema, cool Gait: other (unable to assess) unable to assess - Vital Signs Vital signs: Vital Signs - 12hr 12/03/16 12/03/16 12/03/16 23:00 23:10 23:15 Temperature Pulse Rate 83 83 Pulse Rate [ From Monitor] Respiratory 18 18 17 Rate Blood Pressure 92/53 92/53 O2 Sat by Pulse 100 100 Oximetry 12/03/16 12/03/16 12/03/16 23:20 23:30 23:40 Temperature Pulse Rate 83 83 83 Pulse Rate [ From Monitor] Respiratory 18 18 17 Rate Blood Pressure 98/55 98/55 98/55 O2 Sat by Pulse 100 100 100 Oximetry 12/03/16 12/03/16 12/04/16 23:49 23:50 00:00 Temperature 98.3 F Pulse Rate 85 83 83 Pulse Rate [ From Monitor] Respiratory 18 16 Rate Blood Pressure 92/53 98/55 88/54 O2 Sat by Pulse 100 100 Oximetry 12/04/16 12/04/16 12/04/16 00:10 00:20 00:30 Temperature Pulse Rate 83 83 83 Pulse Rate [ From Monitor] Respiratory 18 18 18 Rate Blood Pressure 88/54 88/54 88/54 O2 Sat by Pulse 100 100 100 Oximetry 12/04/16 12/04/16 12/04/16 00:40 00:50 01:00 Temperature Pulse Rate 88 83 83 Pulse Rate [ From Monitor] Respiratory 18 18 18 Rate Blood Pressure 88/54 88/54 98/58 O2 Sat by Pulse 100 100 Oximetry 12/04/16 12/04/16 12/04/16 01:10 01:20 01:30 Temperature Pulse Rate 83 83 83 Pulse Rate [ From Monitor] Respiratory 18 18 16 Rate Blood Pressure 98/58 98/58 110/62 O2 Sat by Pulse 100 100 100 Oximetry 12/04/16 12/04/16 12/04/16 01:40 01:50 02:00 Temperature Pulse Rate 84 84 83 Pulse Rate [ From Monitor] Respiratory 17 18 18 Rate Blood Pressure 110/62 110/62 100/58 O2 Sat by Pulse 100 100 100 Oximetry 12/04/16 12/04/16 12/04/16 02:10 02:20 02:30 Temperature Pulse Rate 83 83 83 Pulse Rate [ From Monitor] Respiratory 17 17 18 Rate Blood Pressure 100/58 100/58 99/58 O2 Sat by Pulse 100 100 100 Oximetry 12/04/16 12/04/16 12/04/16 02:40 02:50 03:00 Temperature Pulse Rate 84 83 84 Pulse Rate [ From Monitor] Respiratory 18 17 18 Rate Blood Pressure 99/58 99/58 95/60 O2 Sat by Pulse 100 100 Oximetry 12/04/16 12/04/16 12/04/16 03:10 03:20 03:30 Temperature Pulse Rate 83 83 83 Pulse Rate [ From Monitor] Respiratory 18 18 17 Rate Blood Pressure 95/60 95/60 92/57 O2 Sat by Pulse 100 100 100 Oximetry 12/04/16 12/04/16 12/04/16 03:40 03:50 04:00 Temperature 97.4 F L Pulse Rate 83 83 83 Pulse Rate [ From Monitor] Respiratory 18 18 20 Rate Blood Pressure 92/57 92/57 92/57 O2 Sat by Pulse 100 100 Oximetry 12/04/16 12/04/16 12/04/16 04:10 04:20 04:30 Temperature Pulse Rate 83 83 83 Pulse Rate [ From Monitor] Respiratory 20 17 18 Rate Blood Pressure 92/57 99/59 O2 Sat by Pulse 100 100 Oximetry 12/04/16 12/04/16 12/04/16 04:40 04:45 04:50 Temperature Pulse Rate 83 83 83 Pulse Rate [ From Monitor] Respiratory 17 18 Rate Blood Pressure 99/59 99/59 99/59 O2 Sat by Pulse 100 100 100 Oximetry 12/04/16 12/04/16 12/04/16 05:00 05:10 05:20 Temperature Pulse Rate 83 83 84 Pulse Rate [ From Monitor] Respiratory 17 18 12 Rate Blood Pressure 98/57 99/59 99/59 O2 Sat by Pulse 98 99 Oximetry 12/04/16 12/04/16 12/04/16 05:30 05:40 05:50 Temperature Pulse Rate 83 83 83 Pulse Rate [ From Monitor] Respiratory 18 17 Rate Blood Pressure 105/60 105/60 105/60 O2 Sat by Pulse 99 98 Oximetry 12/04/16 12/04/16 12/04/16 06:00 06:10 06:20 Temperature Pulse Rate 83 87 83 Pulse Rate [ From Monitor] Respiratory 18 16 16 Rate Blood Pressure 102/57 102/57 102/57 O2 Sat by Pulse 97 98 98 Oximetry 12/04/16 12/04/16 12/04/16 06:30 06:40 06:50 Temperature Pulse Rate 83 83 83 Pulse Rate [ From Monitor] Respiratory 18 18 18 Rate Blood Pressure 99/58 99/58 99/58 O2 Sat by Pulse 100 97 Oximetry 12/04/16 12/04/16 12/04/16 07:00 07:10 07:20 Temperature Pulse Rate 83 83 87 Pulse Rate [ From Monitor] Respiratory 18 18 18 Rate Blood Pressure 97/56 97/56 97/56 O2 Sat by Pulse 98 100 100 Oximetry 12/04/16 12/04/16 12/04/16 07:30 07:40 07:50 Temperature Pulse Rate 83 83 83 Pulse Rate [ From Monitor] Respiratory 17 18 18 Rate Blood Pressure 103/55 103/55 103/55 O2 Sat by Pulse 98 100 99 Oximetry 12/04/16 12/04/16 12/04/16 08:00 08:10 08:20 Temperature 97.9 F Pulse Rate 83 83 87 Pulse Rate [ 83 From Monitor] Respiratory 18 17 19 Rate Blood Pressure 100/57 100/57 100/57 O2 Sat by Pulse 99 98 99 Oximetry 12/04/16 12/04/16 12/04/16 08:30 08:40 08:50 Temperature Pulse Rate 83 83 83 Pulse Rate [ From Monitor] Respiratory 18 18 18 Rate Blood Pressure 99/57 99/57 99/57 O2 Sat by Pulse 98 98 Oximetry 12/04/16 12/04/16 12/04/16 09:00 09:05 09:10 Temperature Pulse Rate 83 87 87 Pulse Rate [ From Monitor] Respiratory 18 12 Rate Blood Pressure 98/52 98/52 99/57 O2 Sat by Pulse 98 100 100 Oximetry 12/04/16 12/04/16 12/04/16 09:20 09:30 09:40 Temperature Pulse Rate 83 83 83 Pulse Rate [ From Monitor] Respiratory 17 18 18 Rate Blood Pressure 99/57 97/56 97/56 O2 Sat by Pulse 100 100 100 Oximetry 12/04/16 12/04/16 12/04/16 09:50 10:00 10:10 Temperature Pulse Rate 86 83 84 Pulse Rate [ From Monitor] Respiratory 18 18 18 Rate Blood Pressure 97/56 96/54 96/54 O2 Sat by Pulse 100 100 100 Oximetry 12/04/16 10:20 Temperature Pulse Rate 83 Pulse Rate [ From Monitor] Respiratory 17 Rate Blood Pressure 96/54 O2 Sat by Pulse 100 Oximetry - Lab 12/04/16 06:00 12/04/16 06:00 Most recent lab results Calcium 7.7 mg/dL (8.4-10.2) L 12/04/16 06:00 Urine Creatinine 78.6 mg/dL (0.1-20.0) H 11/30/16 10:00 Urine Sodium 10 mEq/L 11/30/16 10:00
--- NOTE | 2016-12-04 11:40 | Progress Note ---
Assessment and Plan Present management. The condition is critical and prognosis is guarded. Comfort and supportive measures. Will follow-up echo once it is done. - Patient Problems (1) Hx-sudden cardiac arrest Current Visit: Yes Status: Acute (2) Abnormal EKG Current Visit: Yes Status: Acute (3) Bilateral leg ulcer Current Visit: Yes Status: Chronic Qualifiers: Non-pressure ulcer stage: N (4) Chest pain Current Visit: Yes Status: Chronic Qualifiers: Chest pain type: C Ischemic chest pain type: I (5) Shortness of breath Current Visit: Yes Status: Chronic (6) Wound infection Current Visit: Yes Status: Chronic (7) Acute on chronic renal failure Current Visit: No Status: Acute Qualifiers: Acute renal failure type: A Chronic kidney disease stage: C (8) Acute on chronic systolic heart failure Current Visit: No Status: Acute (9) COPD exacerbation Current Visit: No Status: Acute (10) Dehydration Current Visit: No Status: Acute (11) CAD (coronary artery disease) Current Visit: No Status: Chronic Qualifiers: Coronary Disease-Associated Artery/Lesion type: C [place] vs. 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 His respiratory status has improved and at this time he is on 30% FiO2 and PEEP of 5 . He has thrombocytopenia with platelet count of 53. WBC count count has come down to 17.8 and hemoglobin is 8.7.Still on Levophed. Objective Vital Signs Temp Pulse Pulse Pulse Pulse Resp Resp 12/04/16 10:20 83 17 12/04/16 10:10 84 18 12/04/16 10:00 83 18 06/25/17 09:50 86 18 06/17 09:40 83 18 06/17 09:30 83 18 0617 09:20 83 17 17 09:10 87 12 17 09:05 87 0617 09:00 83 18 17 08:50 83 18 0617 08:40 83 18 0617 08:30 83 18 17 08:20 87 19 17 08:10 83 17 17 08:00 97.9 F 83 83 18 17 07:50 83 18 17 07:40 83 18 17 07:30 83 17 17 07:20 87 18 17 07:10 83 18 17 07:00 83 18 17 06:50 83 18 0617 06:40 83 18 17 06:30 83 18 17 06:20 83 16 17 06:10 87 16 17 06:00 83 18 17 05:50 83 17 0617 05:40 83 18 17 05:30 83 17 17 05:20 84 12 17 05:10 83 18 17 05:00 83 17 17 04:50 83 18 0617 04:45 83 0617 04:40 83 17 17 04:30 83 18 17 04:20 83 17 0617 04:10 83 20 0617 04:00 97.4 F L 83 20 06/17 03:50 83 18 06/17 03:40 83 18 0617 03:30 83 17 0617 03:20 83 18 0617 03:10 83 18 0617 03:00 84 18 17 02:50 83 17 0617 02:40 84 18 0617 02:30 83 18 0617 02:20 83 17 17 02:10 83 17 17 02:00 83 18 12/04/16 01:50 84 18 12/04/16 01:40 84 17 12/04/16 01:30 83 16 12/04/16 01:20 83 18 12/04/16 01:10 83 18 12/04/16 01:00 83 18 12/04/16 00:50 83 18 12/04/16 00:40 88 18 12/04/16 00:30 83 18 12/04/16 00:20 83 18 12/04/16 00:10 83 18 12/04/16 00:00 83 16 12/03/16 23:50 83 18 12/03/16 23:49 98.3 F 85 12/03/16 23:40 83 17 12/03/16 23:30 83 18 12/03/16 23:20 83 18 12/03/16 23:15 17 12/03/16 23:10 83 18 12/03/16 23:00 83 18 12/03/16 22:50 83 19 12/03/16 22:40 83 18 12/03/16 22:30 83 17 12/03/16 22:24 83 20 12/03/16 22:20 83 20 12/03/16 22:10 83 17 12/03/16 22:00 83 17 12/03/16 21:50 83 17 12/03/16 21:40 87 20 12/03/16 21:30 80 17 12/03/16 21:20 85 19 12/03/16 21:10 80 16 12/03/16 21:00 84 15 12/03/16 20:50 83 17 12/03/16 20:40 82 18 12/03/16 20:30 83 17 12/03/16 20:20 83 16 12/03/16 20:15 16 12/03/16 20:10 87 16 12/03/16 20:00 98.0 F 87 17 12/03/16 19:51 83 12/03/16 19:50 87 18 12/03/16 19:40 86 18 12/03/16 19:30 88 16 12/03/16 19:20 87 17 12/03/16 19:15 83 16 12/03/16 19:10 83 17 12/03/16 19:00 83 17 12/03/16 18:50 83 17 12/03/16 18:40 83 15 12/03/16 18:30 83 18 12/03/16 18:20 83 18 12/03/16 18:10 83 17 12/03/16 18:00 83 17 12/03/16 17:50 83 16 12/03/16 17:40 83 15 12/03/16 17:30 87 14 12/03/16 17:21 84 13 12/03/16 17:11 85 15 12/03/16 17:00 83 15 12/03/16 16:51 83 14 12/03/16 16:41 85 16 12/03/16 16:31 83 16 12/03/16 16:27 12/03/16 16:21 84 16 12/03/16 16:11 83 15 12/03/16 16:00 97.7 F 84 18 12/03/16 15:51 84 17 12/03/16 15:41 83 15 12/03/16 15:31 83 17 12/03/16 15:21 83 15 12/03/16 15:15 83 20 12/03/16 15:11 84 15 12/03/16 15:00 83 17 12/03/16 14:51 83 14 12/03/16 14:41 83 16 12/03/16 14:31 83 16 12/03/16 14:21 83 18 12/03/16 14:11 83 18 12/03/16 14:03 83 20 12/03/16 14:00 83 35 H 12/03/16 13:51 83 17 12/03/16 13:41 86 22 12/03/16 13:31 85 23 12/03/16 13:21 83 33 H 12/03/16 13:11 86 30 H 12/03/16 13:01 86 31 H 12/03/16 13:00 12/03/16 12:51 83 29 H 12/03/16 12:41 90 29 H 12/03/16 12:31 84 17 12/03/16 12:21 83 18 12/03/16 12:11 84 19 12/03/16 12:00 97.9 F 83 17 12/03/16 11:51 84 15 12/03/16 11:41 83 22 BP Pulse Ox 12/04/16 10:20 96/54 100 12/04/16 10:10 96/54 100 12/04/16 10:00 96/54 100 12/04/16 09:50 97/56 100 12/04/16 09:40 97/56 100 12/04/16 09:30 97/56 100 12/04/16 09:20 99/57 100 12/04/16 09:10 99/57 100 12/04/16 09:05 98/52 100 12/04/16 09:00 98/52 98 12/04/16 08:50 99/57 98 12/04/16 08:40 99/57 98 12/04/16 08:30 99/57 12/04/16 08:20 100/57 99 12/04/16 08:10 100/57 98 12/04/16 08:00 100/57 99 12/04/16 07:50 103/55 99 12/04/16 07:40 103/55 100 12/04/16 07:30 103/55 98 12/04/16 07:20 97/56 100 12/04/16 07:10 97/56 100 12/04/16 07:00 97/56 98 12/04/16 06:50 99/58 97 12/04/16 06:40 99/58 100 12/04/16 06:30 99/58 12/04/16 06:20 102/57 98 12/04/16 06:10 102/57 98 12/04/16 06:00 102/57 97 12/04/16 05:50 105/60 98 12/04/16 05:40 105/60 99 12/04/16 05:30 105/60 12/04/16 05:20 99/59 99 12/04/16 05:10 99/59 98 12/04/16 05:00 98/57 12/04/16 04:50 99/59 100 12/04/16 04:45 99/59 100 12/04/16 04:40 99/59 100 12/04/16 04:30 99/59 12/04/16 04:20 100 12/04/16 04:10 92/57 100 12/04/16 04:00 92/57 12/04/16 03:50 92/57 100 12/04/16 03:40 92/57 100 12/04/16 03:30 92/57 100 12/04/16 03:20 95/60 100 12/04/16 03:10 95/60 100 12/04/16 03:00 95/60 12/04/16 02:50 99/58 100 12/04/16 02:40 99/58 100 12/04/16 02:30 99/58 100 12/04/16 02:20 100/58 100 12/04/16 02:10 100/58 100 12/04/16 02:00 100/58 100 12/04/16 01:50 110/62 100 12/04/16 01:40 110/62 100 12/04/16 01:30 110/62 100 12/04/16 01:20 98/58 100 12/04/16 01:10 98/58 100 12/04/16 01:00 98/58 12/04/16 00:50 88/54 100 12/04/16 00:40 88/54 100 12/04/16 00:30 88/54 100 12/04/16 00:20 88/54 100 12/04/16 00:10 88/54 100 12/04/16 00:00 88/54 12/03/16 23:50 98/55 100 12/03/16 23:49 92/53 100 12/03/16 23:40 98/55 100 12/03/16 23:30 98/55 100 12/03/16 23:20 98/55 100 12/03/16 23:15 100 12/03/16 23:10 92/53 100 12/03/16 23:00 92/53 12/03/16 22:50 98/55 100 12/03/16 22:40 98/55 100 12/03/16 22:30 98/55 100 12/03/16 22:24 98/55 100 12/03/16 22:20 98/55 100 12/03/16 22:10 98/55 100 12/03/16 22:00 98/55 100 12/03/16 21:50 98/52 100 12/03/16 21:40 98/52 100 12/03/16 21:30 98/52 100 12/03/16 21:20 98/52 100 12/03/16 21:10 98/52 100 12/03/16 21:00 98/52 100 06/24/17 20:50 90/57 100 06/24/17 20:40 90/57 100 06/24/17 20:30 90/57 100 0624/17 20:20 90/57 100 24/17 20:15 100 0624/17 20:10 90/57 100 24/17 20:00 90/57 100 24/17 19:51 95/56 100 0624/17 19:50 95/56 100 0624/17 19:40 95/56 100 0624/17 19:30 95/56 100 0624/17 19:20 95/56 100 0624/17 19:15 95/56 100 24/17 19:10 95/56 100 24/17 19:00 95/56 100 24/17 18:50 100/57 100 24/17 18:40 100/57 100 24/17 18:30 102/64 100 24/17 18:20 102/64 100 24/17 18:10 102/64 100 0624/17 18:00 100/57 100 0624/17 17:50 107/64 100 0624/17 17:40 107/64 100 24/17 17:30 102/64 100 24/17 17:21 107/64 100 24/17 17:11 107/64 100 24/17 17:00 107/64 100 24/17 16:51 112/58 100 24/17 16:41 112/58 100 24/17 16:31 112/58 100 24/17 16:27 112/58 100 24/17 16:21 112/58 100 24/17 16:11 112/58 100 0624/17 16:00 112/58 100 24/17 15:51 98/59 100 24/17 15:41 92/53 100 24/17 15:31 92/53 100 24/17 15:21 92/53 100 24/17 15:15 2417 15:11 92/53 100 0624/17 15:00 92/53 100 0624/17 14:51 88/51 100 24/17 14:41 83/47 100 06/24/17 14:31 87/51 100 12/03/16 14:21 87/51 100 12/03/16 14:11 101/62 12/03/16 14:03 12/03/16 14:00 79/50 100 12/03/16 13:51 101/62 100 12/03/16 13:41 101/62 12/03/16 13:31 101/62 12/03/16 13:21 99/60 12/03/16 13:11 99/60 12/03/16 13:01 97/62 12/03/16 13:00 99/60 12/03/16 12:51 97/62 12/03/16 12:41 97/62 12/03/16 12:31 97/62 12/03/16 12:21 97/62 12/03/16 12:11 97/62 12/03/16 12:00 97/62 12/03/16 11:51 98/61 12/03/16 11:41 98/61 100 - Physical Examination General: Other (Unresponsive, intubated) HEENT: Positive: Normocephaly, Mucus Membranes Moist, Other (Pupils: sluggishly reacting to light.) Neck: Positive: neck supple, trachea midline Cardiac: Positive: Regular Rhythm, Other (V.paced) Lungs: Positive: clear to auscultation, No Wheeze, Rales, Rhonchi Neuro: Positive: Other (Comatose, responding only to deep painful stimuli.) Abdomen: Positive: Soft, Active Bowel Sounds Skin: Positive: Other (Multiple ulcers in the legs - Dressing in situ.) Musculoskeletal: other (Dressing in situ (multiple ulcers in the legs).) Extremities: Present: +2 Edema. Absent: lower extr. pulses - Labs and Meds CBC 12/03/16 12/03/16 12/04/16 Range/Units 20:15 Unknown 06:00 WBC 18.9 H 22.2 H 17.8 H (4.5-11.0) K/mm3 RBC 3.04 L 3.16 L 3.07 L (3.65-5.03) M/mm3 Hgb 8.4 L 8.6 L 8.7 L (11.8-15.2) gm/dl Hct 26.2 L 27.3 L 26.1 L (35.5-45.6) % Plt Count 81 L 81 L 93 L (140-440) K/mm3 Comprehensive Metabolic Panel 12/03/16 12/04/16 Range/Units Unknown 06:00 Sodium 132 L 133 L (137-145) mmol/L Potassium 4.7 D 4.8 (3.6-5.0) mmol/L Chloride 95.8 L 96.0 L (98-107) mmol/L Carbon Dioxide 19 L 18 L (22-30) mmol/L BUN 93 H 103 H (9-20) mg/dL Creatinine 3.4 H 3.6 H (0.8-1.5) mg/dL Glucose 130 H 190 H (75-100) mg/dL Calcium 7.4 L 7.7 L (8.4-10.2) mg/dL - Imaging and Cardiology EKG: report reviewed, image reviewed Echo: pending - Telemetry EKG Rhythm: Paced
[2016-12-04] MEDS: UNASYN/NS 3 GM/100 ML 3 GM/100 ML BAG IV SCH (13:00)
--- NOTE | 2016-12-04 13:08 | Progress Note ---
Assessment and Plan 71 y/o male with cardiac arrest, asystole with unknown down time and ROSC, now orally intubated, not on sedation, hypotensive and started on heparin drip 1. Will discontinue continuous sedation. In light of worsening renal failure, this could cause confusion in clinical picture in regards to mental status. Will leave PRN's available. 2. Continue vent support. Down to 30% and PEEP of 5. 3. Will follow up with renal tomorrow. Still hypotensive. Lactic is better but acidemia is worse. could be contributing to BP. Agree with bicarb drip. may need HD as they have already stated. 4. Hold on any further boluses given worsening renal failure. Breathing is stable thus far. 5. Agree with current abx therapy, patient was already being followed by ID. There was also concern for possible aspiration given large amounts of emesis in room during code. Unasyn, should provide good anaerobic coverage but will defer to ID 6. Will restart Sub Q heparin for DVT prophylaxis, this was stopped secondary to bleeding yesterday. Needs at least SCD's. 7. Hold on Tube feeds until off pressors 8. Overall prognosis is poor, no family at bedside to discuss CCT 31 minutes. Subjective Date of service: 12/04/16 Principal diagnosis: bilateral leg wounds; TREMAINE Interval history: Had bleeding from nares and around the central line last night and even yesterday after the heparin was stopped. Platelets improving. H/H stable. FiO2 improved but still with metabolic acidosis. Nephro following. Started on Fentanyl drip yesterday as he was biting on the tube. No family at bedside. Still on levophed. Objective Vital Signs - 12hr 12/04/16 12/04/16 12/04/16 01:10 01:20 01:30 Temperature Pulse Rate 83 83 83 Pulse Rate [ From Monitor] Respiratory 18 18 16 Rate Blood Pressure 98/58 98/58 110/62 O2 Sat by Pulse 100 100 100 Oximetry 12/04/16 12/04/16 12/04/16 01:40 01:50 02:00 Temperature Pulse Rate 84 84 83 Pulse Rate [ From Monitor] Respiratory 17 18 18 Rate Blood Pressure 110/62 110/62 100/58 O2 Sat by Pulse 100 100 100 Oximetry 12/04/16 12/04/16 12/04/16 02:10 02:20 02:30 Temperature Pulse Rate 83 83 83 Pulse Rate [ From Monitor] Respiratory 17 17 18 Rate Blood Pressure 100/58 100/58 99/58 O2 Sat by Pulse 100 100 100 Oximetry 12/04/16 12/04/16 12/04/16 02:40 02:50 03:00 Temperature Pulse Rate 84 83 84 Pulse Rate [ From Monitor] Respiratory 18 17 18 Rate Blood Pressure 99/58 99/58 95/60 O2 Sat by Pulse 100 100 Oximetry 12/04/16 12/04/16 12/04/16 03:10 03:20 03:30 Temperature Pulse Rate 83 83 83 Pulse Rate [ From Monitor] Respiratory 18 18 17 Rate Blood Pressure 95/60 95/60 92/57 O2 Sat by Pulse 100 100 100 Oximetry 12/04/16 12/04/16 12/04/16 03:40 03:50 04:00 Temperature 97.4 F L Pulse Rate 83 83 83 Pulse Rate [ From Monitor] Respiratory 18 18 20 Rate Blood Pressure 92/57 92/57 92/57 O2 Sat by Pulse 100 100 Oximetry 12/04/16 12/04/16 12/04/16 04:10 04:20 04:30 Temperature Pulse Rate 83 83 83 Pulse Rate [ From Monitor] Respiratory 20 17 18 Rate Blood Pressure 92/57 99/59 O2 Sat by Pulse 100 100 Oximetry 12/04/16 12/04/16 12/04/16 04:40 04:45 04:50 Temperature Pulse Rate 83 83 83 Pulse Rate [ From Monitor] Respiratory 17 18 Rate Blood Pressure 99/59 99/59 99/59 O2 Sat by Pulse 100 100 100 Oximetry 12/04/16 12/04/16 12/04/16 05:00 05:10 05:20 Temperature Pulse Rate 83 83 84 Pulse Rate [ From Monitor] Respiratory 17 18 12 Rate Blood Pressure 98/57 99/59 99/59 O2 Sat by Pulse 98 99 Oximetry 12/04/16 12/04/16 12/04/16 05:30 05:40 05:50 Temperature Pulse Rate 83 83 83 Pulse Rate [ From Monitor] Respiratory 17 18 17 Rate Blood Pressure 105/60 105/60 105/60 O2 Sat by Pulse 99 98 Oximetry 12/04/16 12/04/16 12/04/16 06:00 06:10 06:20 Temperature Pulse Rate 83 87 83 Pulse Rate [ From Monitor] Respiratory 18 16 16 Rate Blood Pressure 102/57 102/57 102/57 O2 Sat by Pulse 97 98 98 Oximetry 12/04/16 12/04/16 12/04/16 06:30 06:40 06:50 Temperature Pulse Rate 83 83 83 Pulse Rate [ From Monitor] Respiratory 18 18 18 Rate Blood Pressure 99/58 99/58 99/58 O2 Sat by Pulse 100 97 Oximetry 12/04/16 12/04/16 12/04/16 07:00 07:10 07:20 Temperature Pulse Rate 83 83 87 Pulse Rate [ From Monitor] Respiratory 18 18 18 Rate Blood Pressure 97/56 97/56 97/56 O2 Sat by Pulse 98 100 100 Oximetry 12/04/16 12/04/16 12/04/16 07:30 07:40 07:50 Temperature Pulse Rate 83 83 83 Pulse Rate [ From Monitor] Respiratory 17 18 18 Rate Blood Pressure 103/55 103/55 103/55 O2 Sat by Pulse 98 100 99 Oximetry 12/04/16 12/04/16 12/04/16 08:00 08:10 08:20 Temperature 97.9 F Pulse Rate 83 83 87 Pulse Rate [ 83 From Monitor] Respiratory 18 17 19 Rate Blood Pressure 100/57 100/57 100/57 O2 Sat by Pulse 99 98 99 Oximetry 12/04/16 12/04/16 12/04/16 08:30 08:40 08:50 Temperature Pulse Rate 83 83 83 Pulse Rate [ From Monitor] Respiratory 18 18 18 Rate Blood Pressure 99/57 99/57 99/57 O2 Sat by Pulse 98 98 Oximetry 12/04/16 12/04/16 12/04/16 09:00 09:05 09:10 Temperature Pulse Rate 83 87 87 Pulse Rate [ From Monitor] Respiratory 18 12 Rate Blood Pressure 98/52 98/52 99/57 O2 Sat by Pulse 98 100 100 Oximetry 12/04/16 12/04/16 12/04/16 09:20 09:30 09:40 Temperature Pulse Rate 83 83 83 Pulse Rate [ From Monitor] Respiratory 17 18 18 Rate Blood Pressure 99/57 97/56 97/56 O2 Sat by Pulse 100 100 100 Oximetry 12/04/16 12/04/16 12/04/16 09:50 10:00 10:10 Temperature Pulse Rate 86 83 84 Pulse Rate [ From Monitor] Respiratory 18 18 18 Rate Blood Pressure 97/56 96/54 96/54 O2 Sat by Pulse 100 100 100 Oximetry 12/04/16 12/04/16 10:20 12:02 Temperature 97.9 F Pulse Rate 83 Pulse Rate [ From Monitor] Respiratory 17 Rate Blood Pressure 96/54 O2 Sat by Pulse 100 Oximetry Constitutional: comatose (now on sedation though), appears uncomfortable Eyes: other (currently rolled back into his head) ENT: other (orally intubated) Neck: supple Ascultation: Bilateral: rales (anteriorly) Percussion: Bilateral: not dull Cardiovascular: other (Appears to be a paced rhythm with frequent PVC's. Some axis deviation as well) Gastrointestinal: normoactive bowel sounds, soft Extremities: no edema, cool Neurologic: unable to assess CBC and BMP: 12/04/16 06:00 12/04/16 06:00 ABG, PT/INR, D-dimer: ABG POC ABG pH 7.277 (7.35-7.45) L 12/04/16 04:57 POC ABG pCO2 43.8 (35-45) 12/04/16 04:57 POC ABG pO2 198 (80-105) H 12/04/16 04:57 POC ABG HCO3 20.4 12/04/16 04:57 POC ABG Total CO2 22 12/04/16 04:57 POC ABG O2 Sat 100 12/04/16 04:57 PT/INR, D-dimer PT 16.6 Sec. (12.2-14.9) H 12/02/16 19:20 INR 1.27 (0.87-1.13) H 12/02/16 19:20 Abnormal lab findings: Abnormal Labs 11/28/16 11/28/16 11/28/16 14:16 16:02 16:02 WBC RBC Hgb Hct MCH MCHC RDW Plt Count Lymph % (Auto) [place] % (Auto) Lymph # [place] # Seg Neutrophils % Seg Neuts % (Manual) Lymphocytes % (Manual) Monocytes % (Manual) Seg Neutrophils # Seg Neutrophils # Man Lymphocytes # (Manual) Monocytes # (Manual) PT 17.3 H INR 1.42 H APTT 38.0 H Heparin Anti-Xa Level POC ABG pH POC ABG pCO2 POC ABG pO2 Sodium Potassium 3.3 L Chloride 96.0 L Carbon Dioxide BUN 100 H Creatinine 3.4 H Glucose 235 H POC Glucose 500 H Hemoglobin A1c Lactic Acid Calcium Total Bilirubin Troponin T Total Protein Albumin HDL Cholesterol Urine Creatinine 11/28/16 11/28/16 11/29/16 16:02 21:30 05:50 WBC RBC Hgb Hct MCH MCHC RDW Plt Count Lymph % (Auto) [place] % (Auto) Lymph # [place] # Seg Neutrophils % Seg Neuts % (Manual) Lymphocytes % (Manual) Monocytes % (Manual) Seg Neutrophils # Seg Neutrophils # Man Lymphocytes # (Manual) Monocytes # (Manual) PT INR APTT Heparin Anti-Xa Level POC ABG pH POC ABG pCO2 POC ABG pO2 Sodium Potassium Chloride Carbon Dioxide BUN Creatinine Glucose POC Glucose 68 L 40 L Hemoglobin A1c 10.6 H Lactic Acid Calcium Total Bilirubin Troponin T Total Protein Albumin HDL Cholesterol Urine Creatinine 11/29/16 11/29/16 11/29/16 06:33 08:37 08:37 WBC RBC Hgb 10.2 L Hct 30.9 L MCH MCHC RDW 16.0 H Plt Count 104 L Lymph % (Auto) 2.4 L [place] % (Auto) 8.5 H Lymph # 0.2 L [place] # 0.9 H Seg Neutrophils % 89.0 H Seg Neuts % (Manual) Lymphocytes % (Manual) Monocytes % (Manual) Seg Neutrophils # 9.2 H Seg Neutrophils # Man Lymphocytes # (Manual) Monocytes # (Manual) PT INR APTT Heparin Anti-Xa Level POC ABG pH POC ABG pCO2 POC ABG pO2 Sodium Potassium Chloride Carbon Dioxide BUN 95 H Creatinine 2.9 H Glucose POC Glucose 57 L Hemoglobin A1c Lactic Acid Calcium Total Bilirubin Troponin T Total Protein Albumin HDL Cholesterol Urine Creatinine 11/29/16 11/29/16 11/29/16 11:41 12:48 15:44 WBC RBC Hgb Hct MCH MCHC RDW Plt Count Lymph % (Auto) [place] % (Auto) Lymph # [place] # Seg Neutrophils % Seg Neuts % (Manual) Lymphocytes % (Manual) Monocytes % (Manual) Seg Neutrophils # Seg Neutrophils # Man Lymphocytes # (Manual) Monocytes # (Manual) PT INR APTT Heparin Anti-Xa Level POC ABG pH POC ABG pCO2 POC ABG pO2 Sodium Potassium Chloride Carbon Dioxide BUN Creatinine Glucose POC Glucose 48 L 143 H 138 H Hemoglobin A1c Lactic Acid Calcium Total Bilirubin Troponin T Total Protein Albumin HDL Cholesterol Urine Creatinine 11/29/16 11/29/16 11/30/16 21:04 22:26 06:11 WBC RBC Hgb Hct MCH MCHC RDW Plt Count Lymph % (Auto) [place] % (Auto) Lymph # [place] # Seg Neutrophils % Seg Neuts % (Manual) Lymphocytes % (Manual) Monocytes % (Manual) Seg Neutrophils # Seg Neutrophils # Man Lymphocytes # (Manual) Monocytes # (Manual) PT INR APTT Heparin Anti-Xa Level POC ABG pH POC ABG pCO2 POC ABG pO2 Sodium Potassium Chloride Carbon Dioxide BUN Creatinine Glucose POC Glucose 49 L 165 H 121 H Hemoglobin A1c Lactic Acid Calcium Total Bilirubin Troponin T Total Protein Albumin HDL Cholesterol Urine Creatinine 11/30/16 11/30/16 11/30/16 08:53 08:53 10:00 WBC RBC Hgb 10.9 L Hct 33.2 L MCH MCHC RDW 16.3 H Plt Count 96 L Lymph % (Auto) [place] % (Auto) Lymph # [place] # Seg Neutrophils % Seg Neuts % (Manual) 91.0 H Lymphocytes % (Manual) 2.0 L Monocytes % (Manual) Seg Neutrophils # Seg Neutrophils # Man 9.3 H Lymphocytes # (Manual) 0.2 L Monocytes # (Manual) PT INR APTT Heparin Anti-Xa Level POC ABG pH POC ABG pCO2 POC ABG pO2 Sodium Potassium Chloride Carbon Dioxide BUN 78 H Creatinine 2.3 H Glucose 139 H POC Glucose Hemoglobin A1c Lactic Acid Calcium 8.3 L Total Bilirubin Troponin T Total Protein Albumin HDL Cholesterol Urine Creatinine 78.6 H 11/30/16 11/30/16 11/30/16 11:23 17:43 20:23 WBC RBC Hgb Hct MCH MCHC RDW Plt Count Lymph % (Auto) [place] % (Auto) Lymph # [place] # Seg Neutrophils % Seg Neuts % (Manual) Lymphocytes % (Manual) Monocytes % (Manual) Seg Neutrophils # Seg Neutrophils # Man Lymphocytes # (Manual) Monocytes # (Manual) PT INR APTT Heparin Anti-Xa Level POC ABG pH POC ABG pCO2 POC ABG pO2 Sodium Potassium Chloride Carbon Dioxide BUN Creatinine Glucose POC Glucose 169 H 57 L 69 L Hemoglobin A1c Lactic Acid Calcium Total Bilirubin Troponin T Total Protein Albumin HDL Cholesterol Urine Creatinine 11/30/16 11/30/16 12/01/16 20:37 22:12 07:39 WBC 12.9 H RBC Hgb 10.9 L Hct 33.2 L MCH MCHC RDW 16.6 H Plt Count 94 L Lymph % (Auto) [place] % (Auto) Lymph # [place] # Seg Neutrophils % Seg Neuts % (Manual) 98.0 H Lymphocytes % (Manual) 0 L Monocytes % (Manual) Seg Neutrophils # Seg Neutrophils # Man 12.6 H Lymphocytes # (Manual) 0.0 L Monocytes # (Manual) PT INR APTT Heparin Anti-Xa Level POC ABG pH POC ABG pCO2 POC ABG pO2 Sodium Potassium Chloride Carbon Dioxide BUN Creatinine Glucose POC Glucose 107 H Hemoglobin A1c Lactic Acid Calcium Total Bilirubin Troponin T 0.033 H Total Protein Albumin HDL Cholesterol 36 L Urine Creatinine 12/01/16 12/01/16 12/01/16 07:39 11:48 17:02 WBC RBC Hgb Hct MCH MCHC RDW Plt Count Lymph % (Auto) [place] % (Auto) Lymph # [place] # Seg Neutrophils % Seg Neuts % (Manual) Lymphocytes % (Manual) Monocytes % (Manual) Seg Neutrophils # Seg Neutrophils # Man Lymphocytes # (Manual) Monocytes # (Manual) PT INR APTT Heparin Anti-Xa Level POC ABG pH POC ABG pCO2 POC ABG pO2 Sodium Potassium Chloride Carbon Dioxide BUN 71 H Creatinine 2.1 H Glucose POC Glucose 193 H 170 H Hemoglobin A1c Lactic Acid Calcium 8.1 L Total Bilirubin Troponin T Total Protein Albumin HDL Cholesterol Urine Creatinine 12/01/16 12/02/16 12/02/16 21:17 06:05 06:34 WBC RBC Hgb Hct MCH MCHC RDW Plt Count Lymph % (Auto) [place] % (Auto) Lymph # [place] # Seg Neutrophils % Seg Neuts % (Manual) Lymphocytes % (Manual) Monocytes % (Manual) Seg Neutrophils # Seg Neutrophils # Man Lymphocytes # (Manual) Monocytes # (Manual) PT INR APTT Heparin Anti-Xa Level POC ABG pH POC ABG pCO2 POC ABG pO2 Sodium Potassium Chloride Carbon Dioxide BUN Creatinine Glucose POC Glucose 156 H < 40 L 141 H Hemoglobin A1c Lactic Acid Calcium Total Bilirubin Troponin T Total Protein Albumin HDL Cholesterol Urine Creatinine 12/02/16 12/02/16 12/02/16 06:41 07:48 07:48 WBC RBC Hgb 10.2 L Hct 31.4 L MCH 27 L MCHC RDW 16.3 H Plt Count 89 L Lymph % (Auto) [place] % (Auto) Lymph # [place] # Seg Neutrophils % Seg Neuts % (Manual) 87.0 H Lymphocytes % (Manual) 7.0 L Monocytes % (Manual) Seg Neutrophils # Seg Neutrophils # Man 8.9 H Lymphocytes # (Manual) 0.7 L Monocytes # (Manual) PT INR APTT Heparin Anti-Xa Level POC ABG pH POC ABG pCO2 POC ABG pO2 Sodium 136 L Potassium Chloride Carbon Dioxide BUN 75 H Creatinine 2.7 H Glucose POC Glucose 124 H Hemoglobin A1c Lactic Acid Calcium 7.9 L Total Bilirubin Troponin T Total Protein Albumin HDL Cholesterol Urine Creatinine 12/02/16 12/02/16 12/02/16 12:22 18:02 19:20 WBC RBC Hgb Hct MCH MCHC RDW Plt Count Lymph % (Auto) [place] % (Auto) Lymph # [place] # Seg Neutrophils % Seg Neuts % (Manual) Lymphocytes % (Manual) Monocytes % (Manual) Seg Neutrophils # Seg Neutrophils # Man Lymphocytes # (Manual) Monocytes # (Manual) PT 16.6 H INR 1.27 H APTT 45.4 H Heparin Anti-Xa Level POC ABG pH POC ABG pCO2 POC ABG pO2 Sodium Potassium Chloride Carbon Dioxide BUN Creatinine Glucose POC Glucose < 40 L 53 L Hemoglobin A1c Lactic Acid Calcium Total Bilirubin Troponin T Total Protein Albumin HDL Cholesterol Urine Creatinine 12/02/16 12/02/16 12/02/16 19:23 19:23 19:39 WBC 13.8 H RBC Hgb 10.9 L Hct 34.6 L MCH 27 L MCHC 31 L RDW 16.2 H Plt Count 106 L Lymph % (Auto) [place] % (Auto) Lymph # [place] # Seg Neutrophils % Seg Neuts % (Manual) 86.0 H Lymphocytes % (Manual) 4.0 L Monocytes % (Manual) Seg Neutrophils # Seg Neutrophils # Man 11.9 H Lymphocytes # (Manual) 0.6 L Monocytes # (Manual) 1.0 H PT INR APTT Heparin Anti-Xa Level POC ABG pH POC ABG pCO2 POC ABG pO2 Sodium Potassium Chloride 95.8 L Carbon Dioxide BUN 75 H Creatinine 2.8 H Glucose 105 H POC Glucose 141 H Hemoglobin A1c Lactic Acid Calcium 7.8 L Total Bilirubin 2.70 H Troponin T Total Protein 6.0 L Albumin 2.7 L HDL Cholesterol Urine Creatinine 12/02/16 12/03/16 12/03/16 21:14 01:15 04:15 WBC RBC Hgb Hct MCH MCHC RDW Plt Count Lymph % (Auto) [place] % (Auto) Lymph # [place] # Seg Neutrophils % Seg Neuts % (Manual) Lymphocytes % (Manual) Monocytes % (Manual) Seg Neutrophils # Seg Neutrophils # Man Lymphocytes # (Manual) Monocytes # (Manual) PT INR APTT Heparin Anti-Xa Level < 0.10 L POC ABG pH 7.214 L POC ABG pCO2 54.0 H POC ABG pO2 227 H 72 L Sodium Potassium Chloride Carbon Dioxide BUN Creatinine Glucose POC Glucose Hemoglobin A1c Lactic Acid Calcium Total Bilirubin Troponin T Total Protein Albumin HDL Cholesterol Urine Creatinine 12/03/16 12/03/16 12/03/16 05:15 06:04 06:04 WBC 45.9 H* RBC Hgb 10.5 L Hct 32.9 L MCH 27 L MCHC RDW 16.6 H Plt Count 101 L Lymph % (Auto) [place] % (Auto) Lymph # [place] # Seg Neutrophils % Seg Neuts % (Manual) Lymphocytes % (Manual) 8.0 L Monocytes % (Manual) 8.0 H Seg Neutrophils # Seg Neutrophils # Man 31.2 H Lymphocytes # (Manual) Monocytes # (Manual) 3.7 H PT INR APTT Heparin Anti-Xa Level POC ABG pH POC ABG pCO2 POC ABG pO2 Sodium 128 L D Potassium 6.8 H* D Chloride 94.2 L Carbon Dioxide 17 L BUN 77 H Creatinine 2.6 H Glucose POC Glucose 50 L Hemoglobin A1c Lactic Acid Calcium 7.6 L Total Bilirubin Troponin T Total Protein Albumin HDL Cholesterol Urine Creatinine 12/03/16 12/03/16 12/03/16 06:51 08:01 08:13 WBC RBC Hgb Hct MCH MCHC RDW Plt Count Lymph % (Auto) [place] % (Auto) Lymph # [place] # Seg Neutrophils % Seg Neuts % (Manual) Lymphocytes % (Manual) Monocytes % (Manual) Seg Neutrophils # Seg Neutrophils # Man Lymphocytes # (Manual) Monocytes # (Manual) PT INR APTT Heparin Anti-Xa Level POC ABG pH POC ABG pCO2 POC ABG pO2 Sodium Potassium Chloride Carbon Dioxide BUN Creatinine Glucose POC Glucose 118 H 107 H Hemoglobin A1c Lactic Acid Calcium Total Bilirubin Troponin T 0.098 H Total Protein Albumin HDL Cholesterol Urine Creatinine 12/03/16 12/03/16 12/03/16 09:44 12:19 16:39 WBC RBC Hgb Hct MCH MCHC RDW Plt Count Lymph % (Auto) [place] % (Auto) Lymph # [place] # Seg Neutrophils % Seg Neuts % (Manual) Lymphocytes % (Manual) Monocytes % (Manual) Seg Neutrophils # Seg Neutrophils # Man Lymphocytes # (Manual) Monocytes # (Manual) PT INR APTT Heparin Anti-Xa Level POC ABG pH POC ABG pCO2 POC ABG pO2 Sodium Potassium Chloride Carbon Dioxide BUN Creatinine Glucose POC Glucose 115 H Hemoglobin A1c Lactic Acid 3.40 H* 3.10 H* Calcium Total Bilirubin Troponin T Total Protein Albumin HDL Cholesterol Urine Creatinine 12/03/16 12/03/16 12/03/16 17:49 20:15 23:34 WBC 18.9 H RBC 3.04 L Hgb 8.4 L Hct 26.2 L MCH MCHC RDW 16.6 H Plt Count 81 L Lymph % (Auto) [place] % (Auto) Lymph # [place] # Seg Neutrophils % Seg Neuts % (Manual) 94.0 H Lymphocytes % (Manual) 1.0 L Monocytes % (Manual) Seg Neutrophils # Seg Neutrophils # Man 17.8 H Lymphocytes # (Manual) 0.2 L Monocytes # (Manual) PT INR APTT Heparin Anti-Xa Level POC ABG pH POC ABG pCO2 POC ABG pO2 Sodium Potassium Chloride Carbon Dioxide BUN Creatinine Glucose POC Glucose 151 H 188 H Hemoglobin A1c Lactic Acid Calcium Total Bilirubin Troponin T Total Protein Albumin HDL Cholesterol Urine Creatinine 12/03/16 12/03/16 12/04/16 Unknown Unknown 04:57 WBC 22.2 H RBC 3.16 L Hgb 8.6 L Hct 27.3 L MCH 27 L MCHC 31 L RDW 16.9 H Plt Count 81 L Lymph % (Auto) [place] % (Auto) Lymph # [place] # Seg Neutrophils % Seg Neuts % (Manual) Lymphocytes % (Manual) Monocytes % (Manual) Seg Neutrophils # Seg Neutrophils # Man Lymphocytes # (Manual) Monocytes # (Manual) PT INR APTT Heparin Anti-Xa Level POC ABG pH 7.277 L POC ABG pCO2 POC ABG pO2 198 H Sodium 132 L Potassium Chloride 95.8 L Carbon Dioxide 19 L BUN 93 H Creatinine 3.4 H Glucose 130 H POC Glucose Hemoglobin A1c Lactic Acid Calcium 7.4 L Total Bilirubin Troponin T Total Protein Albumin HDL Cholesterol Urine Creatinine 12/04/16 12/04/16 12/04/16 05:45 06:00 06:00 WBC 17.8 H RBC 3.07 L Hgb 8.7 L Hct 26.1 L MCH MCHC RDW 16.5 H Plt Count 93 L Lymph % (Auto) [place] % (Auto) Lymph # [place] # Seg Neutrophils % Seg Neuts % (Manual) 80.0 H Lymphocytes % (Manual) 7.0 L Monocytes % (Manual) Seg Neutrophils # Seg Neutrophils # Man 14.2 H Lymphocytes # (Manual) Monocytes # (Manual) 1.1 H PT INR APTT Heparin Anti-Xa Level POC ABG pH POC ABG pCO2 POC ABG pO2 Sodium 133 L Potassium Chloride 96.0 L Carbon Dioxide 18 L BUN 103 H Creatinine 3.6 H Glucose 190 H POC Glucose 186 H Hemoglobin A1c Lactic Acid Calcium 7.7 L Total Bilirubin Troponin T Total Protein Albumin HDL Cholesterol Urine Creatinine 12/04/16 12/04/16 07:23 11:50 WBC RBC Hgb Hct MCH MCHC RDW Plt Count Lymph % (Auto) [place] % (Auto) Lymph # [place] # Seg Neutrophils % Seg Neuts % (Manual) Lymphocytes % (Manual) Monocytes % (Manual) Seg Neutrophils # Seg Neutrophils # Man Lymphocytes # (Manual) Monocytes # (Manual) PT INR APTT Heparin Anti-Xa Level POC ABG pH POC ABG pCO2 POC ABG pO2 Sodium Potassium Chloride Carbon Dioxide BUN Creatinine Glucose POC Glucose 187 H 190 H Hemoglobin A1c Lactic Acid Calcium Total Bilirubin Troponin T Total Protein Albumin HDL Cholesterol Urine Creatinine
[2016-12-04] MEDS: PROVENTIL IH PRN (15:02)
--- NOTE | 2016-12-04 15:54 | Progress Note ---
Assessment and Plan Assessment and plan: 2 nights ago the patient has difficulty of breathing while eating and then he went to asystole and He was successfully resuscitated then transfer to the ICU. Sean has VF while he was resuscitated and He was shocked. The patient was empirically treated with heparin drip for PE and discontinued this morning. Asystole, Respiratory failure secondary to chocking and aspiration - S/P in house hospital cardiac arrest - Intubated on mechanical ventilation - Slight elevation in troponin - We d/yasmeen the heparin drip - continue the current IV antibiotics Lactic acidosis - on sodium bicarbonate and IV fluids - repeat lactic acid level is normal, but the patient is still acidemic Bilateral DM leg ulcer - sensitivity is back and intermediate for Unasyn and sensitive to ceftriaxone. - currently switched renal dose of ceftriaxone DM - Sliding scale insulin Acute on chronic kidney disease - patient may need dialyis The high probability of a clinically significant, sudden or life threatening deterioration of the [neurology, CV, repiratory] system(s) required my full and direct attention, intervention and personal management. The aggregate critical care time was [31] minutes. This time is in addition to time spent performing reported procedures but includes the following: [x] Data Review and interpretation [x] Patient assessment and monitoring of vital signs [x] Documentation [x] Medication orders and management Hypertension CAD Chronic systolic heart failure - Patient is on Unasyn and vancomycin, ID consult appreciated - Doppler ultrasound of the legs is normal - Pulmonary consult appreciated - Nephrology consult appreciated DVT prophylaxis - Heparin Disposition Continue ICU care History Interval history: Patient was seen and evaluated this morning, he intubated and on mechanical ventilation. On pressors. Hospitalist Physical - Physical exam Narrative exam: Intubated and on mechanical ventilation. The patient appeared well nourished and normally developed. Vital signs as documented. Head exam is unremarkable. No scleral icterus . Neck is without jugular venous distension, thyromegaly, or carotid bruits. Lungs are clear to auscultation. Cardiac exam reveals regular rate and Rhythm. First and second heart sounds normal. No murmurs, rubs or gallops. Abdominal exam reveals normal bowel sounds, no masses, no organomegaly and no aortic enlargement. Extremities significant for bilateral leg and so around the calf area with offensive discharge. 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 - Constitutional Vitals: Temp Pulse Resp BP Pulse Ox 97.9 F 79 18 97/52 100 12/04/16 12:02 12/04/16 15:02 12/04/16 15:02 12/04/16 13:00 12/04/16 13:00 General appearance: Present: no acute distress (intubated, FiO2 60%) Results - Labs CBC & Chem 7: 12/04/16 06:00 12/04/16 06:00 Labs: Laboratory Last Values WBC 17.8 K/mm3 (4.5-11.0) H 12/04/16 06:00 RBC 3.07 M/mm3 (3.65-5.03) L 12/04/16 06:00 Hgb 8.7 gm/dl (11.8-15.2) L 12/04/16 06:00 Hct 26.1 % (35.5-45.6) L 12/04/16 06:00 MCV 85 fl (84-94) 12/04/16 06:00 MCH 28 pg (28-32) 12/04/16 06:00 MCHC 33 % (32-34) 12/04/16 06:00 RDW 16.5 % (13.2-15.2) H 12/04/16 06:00 Plt Count 93 K/mm3 (140-440) L 12/04/16 06:00 Lymph % (Auto) 2.4 % (13.4-35.0) L 11/29/16 08:37 [place] % (Auto) 8.5 % (0.0-7.3) H 11/29/16 08:37 Eos % (Auto) 0.1 % (0.0-4.3) 11/29/16 08:37 Baso % (Auto) 0.0 % (0.0-1.8) 11/29/16 08:37 Lymph # 0.2 K/mm3 (1.2-5.4) L 11/29/16 08:37 [place] # 0.9 K/mm3 (0.0-0.8) H 11/29/16 08:37 Eos # 0.0 K/mm3 (0.0-0.4) 11/29/16 08:37 Baso # 0.0 K/mm3 (0.0-0.1) 11/29/16 08:37 Add Manual Diff Complete 12/04/16 06:00 Total Counted 100 06/25/17 06:00 Seg Neutrophils % Dip Filler 12/04/16 06:00 Seg Neuts % (Manual) 80.0 % (40.0-70.0) H 12/04/16 06:00 Band Neutrophils % 7.0 % 12/04/16 06:00 Lymphocytes % (Manual) 7.0 % (13.4-35.0) L 12/04/16 06:00 Reactive Lymphs % (Man) 0 % 12/04/16 06:00 Monocytes % (Manual) 6.0 % (0.0-7.3) 12/04/16 06:00 Eosinophils % (Manual) 0 % (0.0-4.3) 12/04/16 06:00 Basophils % (Manual) 0 % (0.0-1.8) 12/04/16 06:00 Metamyelocytes % 0 % 12/04/16 06:00 Myelocytes % 0 % 12/04/16 06:00 Promyelocytes % 0 % 12/04/16 06:00 Blast Cells % 0 % 12/04/16 06:00 Nucleated RBC % Not Reportable 12/04/16 06:00 Seg Neutrophils # 9.2 K/mm3 (1.8-7.7) H 11/29/16 08:37 Seg Neutrophils # Man 14.2 K/mm3 (1.8-7.7) H 12/04/16 06:00 Band Neutrophils # 1.2 K/mm3 12/04/16 06:00 Lymphocytes # (Manual) 1.2 K/mm3 (1.2-5.4) 12/04/16 06:00 Abs React Lymphs (Man) 0.0 K/mm3 12/04/16 06:00 Monocytes # (Manual) 1.1 K/mm3 (0.0-0.8) H 12/04/16 06:00 Eosinophils # (Manual) 0.0 K/mm3 (0.0-0.4) 12/04/16 06:00 Basophils # (Manual) 0.0 K/mm3 (0.0-0.1) 12/04/16 06:00 Metamyelocytes # 0.0 K/mm3 12/04/16 06:00 Myelocytes # 0.0 K/mm3 12/04/16 06:00 Promyelocytes # 0.0 K/mm3 12/04/16 06:00 Blast Cells # 0.0 K/mm3 12/04/16 06:00 WBC Morphology Not Reportable 12/04/16 06:00 Hypersegmented Neuts Not Reportable 12/04/16 06:00 Hyposegmented Neuts Not Reportable 12/04/16 06:00 Hypogranular Neuts Not Reportable 12/04/16 06:00 Smudge Cells Not Reportable 12/04/16 06:00 Toxic Granulation Not Reportable 12/04/16 06:00 Toxic Vacuolation Not Reportable 12/04/16 06:00 Dohle Bodies Not Reportable 12/04/16 06:00 Pelger-Huet Anomaly Not Reportable 12/04/16 06:00 Demetra Rods Not Reportable 12/04/16 06:00 Platelet Estimate Consistent w auto 12/04/16 06:00 Clumped Platelets Not Reportable 12/04/16 06:00 Plt Clumps, EDTA Not Reportable 12/04/16 06:00 Large Platelets Not Reportable 12/04/16 06:00 Giant Platelets Not Reportable 12/04/16 06:00 Platelet Satelliting Not Reportable 12/04/16 06:00 Plt Morphology Comment Not Reportable 12/04/16 06:00 RBC Morphology Not Reportable 12/04/16 06:00 Dimorphic RBCs Not Reportable 12/04/16 06:00 Polychromasia 1+ 12/04/16 06:00 Hypochromasia Not Reportable 12/04/16 06:00 Poikilocytosis 1+ 12/04/16 06:00 Anisocytosis 1+ 12/04/16 06:00 Microcytosis Not Reportable 12/04/16 06:00 Macrocytosis Not Reportable 12/04/16 06:00 Spherocytes Not Reportable 12/04/16 06:00 Pappenheimer Bodies Not Reportable 12/04/16 06:00 Sickle Cells Not Reportable 12/04/16 06:00 Target Cells Rare 12/04/16 06:00 Tear Drop Cells Not Reportable 12/04/16 06:00 Ovalocytes Not Reportable 12/04/16 06:00 Helmet Cells Not Reportable 12/04/16 06:00 [place] Bodies Not Reportable 12/04/16 06:00 [place] Rings Not Reportable 12/04/16 06:00 [place] Cells Not Reportable 12/04/16 06:00 Bite Cells Not Reportable 12/04/16 06:00 Crenated Cell Not Reportable 12/04/16 06:00 Elliptocytes Rare 12/04/16 06:00 Acanthocytes (Spur) Not Reportable 12/04/16 06:00 Rouleaux Not Reportable 12/04/16 06:00 Hemoglobin C Crystals Not Reportable 12/04/16 06:00 Schistocytes Few 12/04/16 06:00 Malaria parasites Not Reportable 12/04/16 06:00 [place] Bodies Not Reportable 12/04/16 06:00 Hem Pathologist Commnt No 12/04/16 06:00 PT 16.6 Sec. (12.2-14.9) H 12/02/16 19:20 INR 1.27 (0.87-1.13) H 12/02/16 19:20 APTT 45.4 Sec. (24.2-36.6) H 12/02/16 19:20 Heparin Anti-Xa Level < 0.10 U.I./ml (0.3-0.7) L 12/03/16 01:15 POC ABG pH 7.277 (7.35-7.45) L 12/04/16 04:57 POC ABG pCO2 43.8 (35-45) 12/04/16 04:57 POC ABG pO2 198 (80-105) H 12/04/16 04:57 POC ABG HCO3 20.4 12/04/16 04:57 POC ABG Total CO2 22 12/04/16 04:57 POC ABG O2 Sat 100 12/04/16 04:57 POC ABG Base Excess -6 12/04/16 04:57 FiO2 50 % 12/04/16 04:57 Sodium 133 mmol/L (137-145) L 12/04/16 06:00 Potassium 4.8 mmol/L (3.6-5.0) 12/04/16 06:00 Chloride 96.0 mmol/L (98-107) L 12/04/16 06:00 Carbon Dioxide 18 mmol/L (22-30) L 12/04/16 06:00 Anion Gap 24 mmol/L 12/04/16 06:00 BUN 103 mg/dL (9-20) H 12/04/16 06:00 Creatinine 3.6 mg/dL (0.8-1.5) H 12/04/16 06:00 Estimated GFR 20 ml/min 12/04/16 06:00 BUN/Creatinine Ratio 28.61 % 12/04/16 06:00 Glucose 190 mg/dL (75-100) H 12/04/16 06:00 POC Glucose 190 (70-105) H 12/04/16 11:50 Hemoglobin A1c 10.6 % (4-6) H 11/28/16 16:02 Lactic Acid 2.60 mmol/L (0.7-2.0) H* 12/04/16 13:22 Calcium 7.7 mg/dL (8.4-10.2) L 12/04/16 06:00 Total Bilirubin 2.70 mg/dL (0.1-1.2) H 12/02/16 19:23 AST 36 units/L (5-40) 12/02/16 19:23 ALT 30 units/L (7-56) 12/02/16 19:23 Alkaline Phosphatase 111 units/L (35-129) 12/02/16 19:23 Total Creatine Kinase 59 units/L (55-170) 12/02/16 19:23 CK-MB (CK-2) 1.9 ng/mL (0.0-4.0) 12/02/16 19:23 CK-MB (CK-2) Rel Index 3.2 (0-4) 12/02/16 19:23 Troponin T 0.098 ng/mL (0.00-0.029) H 12/03/16 08:01 Total Protein 6.0 g/dL (6.3-8.2) L 12/02/16 19:23 Albumin 2.7 g/dL (3.9-5) L 12/02/16 19:23 Albumin/Globulin Ratio 0.8 % 12/02/16 19:23 Triglycerides 72 mg/dL (2-149) 11/30/16 20:37 Cholesterol 132 mg/dL (50-199) 11/30/16 20:37 LDL Cholesterol Direct 82 mg/dL (50-130) 11/30/16 20:37 HDL Cholesterol 36 mg/dL (40-59) L 11/30/16 20:37 Cholesterol/HDL Ratio 3.66 % 11/30/16 20:37 Urine Color Yellow (Yellow) 11/30/16 10:00 Urine Turbidity Clear (Clear) 11/30/16 10:00 Urine pH 6.0 (5.0-7.0) 11/30/16 10:00 Ur Specific [place] 1.018 (1.003-1.030) 11/30/16 10:00 Urine Protein 30 mg/dl mg/dL (Negative) 11/30/16 10:00 Urine Glucose (UA) Neg mg/dL (Negative) 11/30/16 10:00 Urine Ketones Neg mg/dL (Negative) 11/30/16 10:00 Urine Blood Neg (Negative) 11/30/16 10:00 Urine Nitrite Neg (Negative) 11/30/16 10:00 Urine Bilirubin Neg (Negative) 11/30/16 10:00 Urine Urobilinogen < 2.0 mg/dL (<2.0) 11/30/16 10:00 Ur Leukocyte Esterase Tr (Negative) 11/30/16 10:00 Urine WBC (Auto) 2.0 /HPF (0.0-6.0) 11/30/16 10:00 Urine RBC (Auto) < 1.0 /HPF (0.0-6.0) 11/30/16 10:00 U Epithel Cells (Auto) < 1.0 /HPF (0-13.0) 11/30/16 10:00 Urine Eosinophils None seen (None Seen) 11/30/16 10:00 Urine Creatinine 78.6 mg/dL (0.1-20.0) H 11/30/16 10:00 Urine Sodium 10 mEq/L 11/30/16 10:00 Vancomycin Trough 19.0 ug/mL (5.0-20.0) 12/03/16 06:04 Random Vancomycin 7.9 ug/mL (0-40.0) 11/30/16 08:53
[2016-12-04] MEDS: ROCEPHIN/NS 1 GM/50 ML 1 GM/50 ML BAG IV SCH (17:14)
[2016-12-04] MEDS: ATIVAN IV PRN (17:14)
[2016-12-04] MEDS: NOVOLOG SUB-Q SCH (18:35)
[2016-12-05] MEDS: NOVOLOG SUB-Q SCH ×3 (00:02→17:59)
[2016-12-05] MEDS: DAKIN'S HALF STRENGTH TP SCH ×2 (00:05→15:00)
[2016-12-05] MEDS: SUBLIMAZE IV PRN (04:15)
[2016-12-05] MEDS: LEVOPHED DRIP 4 MG/NS 250 ML 4 MG/250 ML BAG IV SCH ×2 (04:33→14:41)
[2016-12-05 05:56] LABS: Basophils % (Auto) 0.1 % (0.0-1.8); Hematocrit 25.9 % (35.5-45.6); Hemoglobin 8.2 gm/dl (11.8-15.2); Mean Corpuscular HGB Conc 32 % (32-34); Mean Corpuscular Hemoglobin 27 pg (28-32); Mean Corpuscular Volume 86 fl (84-94); Red Blood Count 3.03 M/mm3 (3.65-5.03); Red Cell Distribution Width 16.4 % (13.2-15.2); White Blood Count 17.1 K/mm3 (4.5-11.0)
[2016-12-05 05:59] LABS: Platelet Count 81 K/mm3 (140-440)
[2016-12-05 06:08] LABS: ISTAT Base Excess -6; ISTAT HCO3 18.9; ISTAT PCO2 32.5 (35-45); ISTAT PH 7.373 (7.35-7.45); ISTAT PO2 124 (80-105); ISTAT SO2 99; ISTAT TCO2 20
[2016-12-05 06:11] LABS: Chloride 96.9 mmol/L (98-107); Potassium 4.7 mmol/L (3.6-5.0)
--- NOTE | 2016-12-05 06:30 | Progress Note ---
Assessment and Plan - Patient Problems (1) Wound infection Current Visit: Yes Status: Chronic Plan to address problem: 1. Vancomycin and Unasyn changed to Rocephin. Agree with this regimen to complete 10-14 days (~through December 09). 2. Apply topical antibiotic with each dressing change until wound closes. 3. Continue local care to wounds. Subjective Date of service: 12/05/16 Principal diagnosis: bilateral leg wounds; TREMAINE Interval history: Remains intubated in ICU. Intermittent agitation. No new events. Objective - Exam Narrative Exam: intubated, FiO2 30%; on Levophed 6 mcg - Constitutional Vitals: Vital Signs Temp Pulse Resp BP Pulse Ox 97.5 F L 85 18 109/59 100 12/05/16 04:00 12/05/16 04:55 12/05/16 04:30 12/05/16 04:55 12/05/16 04:55 Temperature -Last 24 Hours Temperature 97.5 F Temperature 98.3 F Temperature 97.3 F Temperature 97.4 F Temperature 97.9 F Temperature 97.9 F - EENT ENT: clear oral mucosa, other (ET tube in place) - Neck Neck: supple - Respiratory Respiratory: bilateral: rhonchi, negative: rales, wheezing - Cardiovascular Rhythm: regular Heart Sounds: Present: S1 & S2 Extremity abnormal: edema (dry wound bases, bullae at right lateral leg) - Gastrointestinal General gastrointestinal: Present: soft, non-distended - Integumentary Integumentary: no jaundice, no rash - Neurologic Neurologic: other (sedated with Fentanyl) - Labs CBC & Chem 7: 12/05/16 05:00 12/05/16 05:00 Labs: Abnormal lab results 12/04/16 12/04/16 12/04/16 Range/Units 06:00 06:00 07:23 WBC 17.8 H (4.5-11.0) K/mm3 RBC 3.07 L (3.65-5.03) M/mm3 Hgb 8.7 L (11.8-15.2) gm/dl Hct 26.1 L (35.5-45.6) % MCH (28-32) pg RDW 16.5 H (13.2-15.2) % Plt Count 93 L (140-440) K/mm3 Lymph % (Auto) (13.4-35.0) % [place] % (Auto) (0.0-7.3) % Lymph # (1.2-5.4) K/mm3 [place] # (0.0-0.8) K/mm3 Seg Neutrophils % (40.0-70.0) % Seg Neuts % (Manual) 80.0 H (40.0-70.0) % Lymphocytes % (Manual) 7.0 L (13.4-35.0) % Seg Neutrophils # (1.8-7.7) K/mm3 Seg Neutrophils # Man 14.2 H (1.8-7.7) K/mm3 Monocytes # (Manual) 1.1 H (0.0-0.8) K/mm3 POC ABG pCO2 (35-45) POC ABG pO2 (80-105) Sodium 133 L (137-145) mmol/L Chloride 96.0 L (98-107) mmol/L Carbon Dioxide 18 L (22-30) mmol/L BUN 103 H (9-20) mg/dL Creatinine 3.6 H (0.8-1.5) mg/dL Glucose 190 H (75-100) mg/dL POC Glucose 187 H (70-105) Lactic Acid (0.7-2.0) mmol/L Calcium 7.7 L (8.4-10.2) mg/dL 12/04/16 12/04/16 12/04/16 Range/Units 11:50 13:22 17:46 WBC (4.5-11.0) K/mm3 RBC (3.65-5.03) M/mm3 Hgb (11.8-15.2) gm/dl Hct (35.5-45.6) % MCH (28-32) pg RDW (13.2-15.2) % Plt Count (140-440) K/mm3 Lymph % (Auto) (13.4-35.0) % [place] % (Auto) (0.0-7.3) % Lymph # (1.2-5.4) K/mm3 [place] # (0.0-0.8) K/mm3 Seg Neutrophils % (40.0-70.0) % Seg Neuts % (Manual) (40.0-70.0) % Lymphocytes % (Manual) (13.4-35.0) % Seg Neutrophils # (1.8-7.7) K/mm3 Seg Neutrophils # Man (1.8-7.7) K/mm3 Monocytes # (Manual) (0.0-0.8) K/mm3 POC ABG pCO2 (35-45) POC ABG pO2 (80-105) Sodium (137-145) mmol/L Chloride (98-107) mmol/L Carbon Dioxide (22-30) mmol/L BUN (9-20) mg/dL Creatinine (0.8-1.5) mg/dL Glucose (75-100) mg/dL POC Glucose 190 H 264 H (70-105) Lactic Acid 2.60 H* (0.7-2.0) mmol/L Calcium (8.4-10.2) mg/dL 12/04/16 12/05/16 12/05/16 Range/Units 23:33 05:00 05:00 WBC 17.1 H (4.5-11.0) K/mm3 RBC 3.03 L (3.65-5.03) M/mm3 Hgb 8.2 L (11.8-15.2) gm/dl Hct 25.9 L (35.5-45.6) % MCH 27 L (28-32) pg RDW 16.4 H (13.2-15.2) % Plt Count 81 L (140-440) K/mm3 Lymph % (Auto) 1.3 L (13.4-35.0) % [place] % (Auto) 9.7 H (0.0-7.3) % Lymph # 0.2 L (1.2-5.4) K/mm3 [place] # 1.7 H (0.0-0.8) K/mm3 Seg Neutrophils % 88.9 H (40.0-70.0) % Seg Neuts % (Manual) (40.0-70.0) % Lymphocytes % (Manual) (13.4-35.0) % Seg Neutrophils # 15.2 H (1.8-7.7) K/mm3 Seg Neutrophils # Man (1.8-7.7) K/mm3 Monocytes # (Manual) (0.0-0.8) K/mm3 POC ABG pCO2 (35-45) POC ABG pO2 (80-105) Sodium 132 L (137-145) mmol/L Chloride 96.9 L (98-107) mmol/L Carbon Dioxide 19 L (22-30) mmol/L BUN 120 H (9-20) mg/dL Creatinine 4.8 H (0.8-1.5) mg/dL Glucose 193 H (75-100) mg/dL POC Glucose 263 H (70-105) Lactic Acid (0.7-2.0) mmol/L Calcium 8.0 L (8.4-10.2) mg/dL 12/05/16 12/05/16 Range/Units 05:17 06:00 WBC (4.5-11.0) K/mm3 RBC (3.65-5.03) M/mm3 Hgb (11.8-15.2) gm/dl Hct (35.5-45.6) % MCH (28-32) pg RDW (13.2-15.2) % Plt Count (140-440) K/mm3 Lymph % (Auto) (13.4-35.0) % [place] % (Auto) (0.0-7.3) % Lymph # (1.2-5.4) K/mm3 [place] # (0.0-0.8) K/mm3 Seg Neutrophils % (40.0-70.0) % Seg Neuts % (Manual) (40.0-70.0) % Lymphocytes % (Manual) (13.4-35.0) % Seg Neutrophils # (1.8-7.7) K/mm3 Seg Neutrophils # Man (1.8-7.7) K/mm3 Monocytes # (Manual) (0.0-0.8) K/mm3 POC ABG pCO2 32.5 L (35-45) POC ABG pO2 124 H (80-105) Sodium (137-145) mmol/L Chloride (98-107) mmol/L Carbon Dioxide (22-30) mmol/L BUN (9-20) mg/dL Creatinine (0.8-1.5) mg/dL Glucose (75-100) mg/dL POC Glucose 229 H (70-105) Lactic Acid (0.7-2.0) mmol/L Calcium (8.4-10.2) mg/dL Microbiology 12/03/16 21:11 Peripheral/Venous Blood Culture - Preliminary NO GROWTH AFTER 24 HOURS 12/02/16 21:00 Sputum - Endotracheal Wash Sputum Culture - Preliminary Gram Negative Charles 12/03/16 Unknown Peripheral/Venous Blood Culture - Preliminary NO GROWTH AFTER 24 HOURS 11/30/16 16:15 Leg - Right Wound Culture - Preliminary Gram Negative Charles Serratia Marcescens Gram Negative Charles#3 Proteus Mirabilis 11/29/16 14:55 Leg - Left Wound Culture - Final Serratia Marcescens - Imaging and cardiology Chest x-ray: report reviewed (improved congestion)
--- NOTE | 2016-12-05 07:17 | Progress Note ---
Assessment and Plan Acute renal failure in a patient who does have chronic kidney disease patient's urine output has markedly declined blood pressure has been running in the 80s systolic currently he is on vancomycin ventilator dependent and pressors Patient is currently unstable for renal replacement therapy in my opinion had a detailed discussion with the patient's who is aware that patient is critically ill with multi-organ failure which carries poor prognosis in general Patient will need to be reevaluated in the morning if stable can be considered for hemodialysis Would like to discuss with the primary team, if dialysis will help was adequately educated and counseled regarding all the renal-related issues Hyperkalemia currently better Multiple other comorbidities including respiratory failure pneumonia coronary artery disease COPD and status post arrest Patient does have echogenic kidney Goals of care needs to be discussed with patient's family and they are more realistic : Continue to follow and make recommendation from renal standpoint Subjective Principal diagnosis: bilateral leg wounds; TREMAINE Interval history: Patient was seen today for follow-up of multiple renal-related issues Time of evaluation was around 5:00 in the evening Met with who is aware of patient not doing so well and critically ill Events of this hospitalization noted Patient is ventilator dependent hemodynamically unstable Physical examination Vitals: Reviewed HEENT: Intubated Neck: Supple Chest: Bilateral basilar crackles posteriorly Heart: Regular rate and rhythm S1-S2 heard Abdomen: Soft nontender Extremities: No peripheral edema Objective - Vital Signs Vital signs: Vital Signs - 12hr 12/04/16 12/04/16 12/04/16 19:20 19:30 19:40 Temperature Pulse Rate 86 88 87 Pulse Rate [ From Monitor] Respiratory 18 18 18 Rate Blood Pressure 96/53 92/53 92/53 O2 Sat by Pulse 100 100 100 Oximetry 12/04/16 12/04/16 12/04/16 19:50 20:00 20:04 Temperature Pulse Rate 83 86 85 Pulse Rate [ From Monitor] Respiratory 18 18 Rate Blood Pressure 92/53 87/50 87/50 O2 Sat by Pulse 100 100 100 Oximetry 12/04/16 12/04/16 12/04/16 20:10 20:20 20:28 Temperature 97.3 F L Pulse Rate 83 83 Pulse Rate [ From Monitor] Respiratory 18 18 Rate Blood Pressure 87/50 87/50 O2 Sat by Pulse 100 100 Oximetry 12/04/16 12/04/16 12/04/16 20:30 20:40 20:50 Temperature Pulse Rate 83 83 83 Pulse Rate [ From Monitor] Respiratory 18 18 18 Rate Blood Pressure 96/51 96/51 96/51 O2 Sat by Pulse 100 100 100 Oximetry 12/04/16 12/04/16 12/04/16 21:00 21:10 21:20 Temperature Pulse Rate 83 83 83 Pulse Rate [ From Monitor] Respiratory 18 18 18 Rate Blood Pressure 94/50 94/50 94/50 O2 Sat by Pulse 100 100 100 Oximetry 12/04/16 12/04/16 12/04/16 21:30 21:40 21:50 Temperature Pulse Rate 83 83 83 Pulse Rate [ From Monitor] Respiratory 18 18 18 Rate Blood Pressure 97/51 97/51 97/51 O2 Sat by Pulse 100 100 100 Oximetry 12/04/16 12/04/16 12/04/16 22:00 22:10 22:20 Temperature Pulse Rate 83 83 83 Pulse Rate [ From Monitor] Respiratory 18 18 18 Rate Blood Pressure 96/52 96/52 96/52 O2 Sat by Pulse 100 100 Oximetry 12/04/16 12/04/16 12/04/16 22:30 22:40 22:50 Temperature Pulse Rate 83 83 83 Pulse Rate [ From Monitor] Respiratory 18 18 18 Rate Blood Pressure 96/53 96/53 96/53 O2 Sat by Pulse 100 100 Oximetry 12/04/16 12/04/16 12/04/16 23:00 23:09 23:10 Temperature Pulse Rate 83 83 Pulse Rate [ 90 From Monitor] Respiratory 18 18 18 Rate Blood Pressure 91/49 91/49 O2 Sat by Pulse 100 100 100 Oximetry 12/04/16 12/04/16 12/04/16 23:16 23:20 23:30 Temperature Pulse Rate 83 93 H 90 Pulse Rate [ From Monitor] Respiratory 18 18 18 Rate Blood Pressure 91/49 91/49 96/51 O2 Sat by Pulse 100 100 100 Oximetry 12/04/16 12/04/16 12/05/16 23:40 23:50 00:00 Temperature Pulse Rate 83 83 83 Pulse Rate [ From Monitor] Respiratory 18 18 15 Rate Blood Pressure 96/51 96/51 95/50 O2 Sat by Pulse 100 100 100 Oximetry 12/05/16 12/05/16 12/05/16 00:03 00:10 00:20 Temperature 98.3 F Pulse Rate 83 83 Pulse Rate [ From Monitor] Respiratory 18 13 Rate Blood Pressure 95/50 95/50 O2 Sat by Pulse 100 100 Oximetry 12/05/16 12/05/16 12/05/16 00:30 00:40 00:50 Temperature Pulse Rate 87 85 83 Pulse Rate [ From Monitor] Respiratory 15 18 19 Rate Blood Pressure 103/58 103/58 103/58 O2 Sat by Pulse 98 100 100 Oximetry 12/05/16 12/05/16 12/05/16 01:00 01:10 01:20 Temperature Pulse Rate 83 101 H 83 Pulse Rate [ From Monitor] Respiratory 18 18 20 Rate Blood Pressure 106/62 106/62 106/62 O2 Sat by Pulse 99 99 100 Oximetry 12/05/16 12/05/16 12/05/16 01:30 01:40 01:50 Temperature Pulse Rate 86 83 83 Pulse Rate [ From Monitor] Respiratory 16 18 Rate Blood Pressure 104/62 106/62 106/62 O2 Sat by Pulse 100 100 100 Oximetry 12/05/16 12/05/16 12/05/16 02:00 02:10 02:20 Temperature Pulse Rate 84 75 92 H Pulse Rate [ From Monitor] Respiratory 17 18 Rate Blood Pressure 105/57 105/57 105/57 O2 Sat by Pulse 97 100 93 Oximetry 12/05/16 12/05/16 12/05/16 02:30 02:40 02:50 Temperature Pulse Rate 84 83 Pulse Rate [ From Monitor] Respiratory 19 19 Rate Blood Pressure 105/57 83/39 83/39 O2 Sat by Pulse 90 99 100 Oximetry 12/05/16 12/05/16 12/05/16 03:00 03:10 03:20 Temperature Pulse Rate 83 84 85 Pulse Rate [ 87 From Monitor] Respiratory 18 18 18 Rate Blood Pressure 87/42 87/42 87/42 O2 Sat by Pulse 100 100 100 Oximetry 12/05/16 12/05/16 12/05/16 03:30 03:40 03:50 Temperature Pulse Rate 83 87 84 Pulse Rate [ From Monitor] Respiratory 20 18 16 Rate Blood Pressure 94/53 94/53 94/53 O2 Sat by Pulse 100 100 100 Oximetry 12/05/16 12/05/16 12/05/16 04:00 04:10 04:20 Temperature 97.5 F L Pulse Rate 83 83 83 Pulse Rate [ From Monitor] Respiratory 17 Rate Blood Pressure 94/53 102/58 102/58 O2 Sat by Pulse 100 100 100 Oximetry 12/05/16 12/05/16 12/05/16 04:30 04:40 04:50 Temperature Pulse Rate 83 86 84 Pulse Rate [ From Monitor] Respiratory 18 18 18 Rate Blood Pressure 109/59 102/58 102/58 O2 Sat by Pulse 100 100 100 Oximetry 12/05/16 12/05/16 12/05/16 04:55 05:00 05:10 Temperature Pulse Rate 85 86 86 Pulse Rate [ From Monitor] Respiratory 18 18 Rate Blood Pressure 109/59 102/58 112/51 O2 Sat by Pulse 100 100 Oximetry 12/05/16 12/05/16 12/05/16 05:20 05:30 05:40 Temperature Pulse Rate 86 86 83 Pulse Rate [ From Monitor] Respiratory 18 18 18 Rate Blood Pressure 112/51 89/53 89/53 O2 Sat by Pulse 100 100 Oximetry 12/05/16 12/05/16 12/05/16 05:50 06:00 06:10 Temperature Pulse Rate 83 86 85 Pulse Rate [ From Monitor] Respiratory 18 18 17 Rate Blood Pressure 89/53 89/53 81/51 O2 Sat by Pulse 100 100 100 Oximetry 12/05/16 12/05/16 06:20 06:30 Temperature Pulse Rate 84 84 Pulse Rate [ From Monitor] Respiratory 18 18 Rate Blood Pressure 81/51 81/51 O2 Sat by Pulse 100 Oximetry - Lab 12/06/16 06:00 12/06/16 06:00 Most recent lab results Calcium 8.0 mg/dL (8.4-10.2) L 12/05/16 05:00 Urine Creatinine 78.6 mg/dL (0.1-20.0) H 11/30/16 10:00 Urine Sodium 10 mEq/L 11/30/16 10:00
[2016-12-05] MEDS: ATIVAN IV PRN (08:40)
--- NOTE | 2016-12-05 08:59 | XRay Report ---
AP chest: Comparison is made to the prior study of December 04. The heart is big with minimal if any significant congestive changes. There is a bipolar pacemaker with intact wires. The hazy opacity seen on the recent study at both lung bases has resolved. No current infiltrates noted. Endotracheal tube in good position. Impression: Improved congestion since prior study. Mild residual.
--- NOTE | 2016-12-05 11:09 | Progress Note ---
Assessment and Plan Cardiac arrest Acute respiratory failure on ventilator support Congestive heart failure P. pacemaker Sepsis Infected ulcers Recommendations Continue antibiotics. Suction patient, sputum cultures Discontinue femoral line and switched to PICC line. Discussed with nursing Decreased down Levophed, maintain MAP over 60 Monitor platelets Critical care time was 31 minutes [id number] evaluation and coordination of care Subjective Date of service: 12/05/16 Principal diagnosis: cardiac arrest, respiratory failure bilateral leg wounds; TREMAINE Interval history: Intubated, nonresponsive Objective Vital Signs - 12hr 12/04/16 12/04/16 12/04/16 23:09 23:10 23:16 Temperature Pulse Rate 83 83 Pulse Rate [ 90 From Monitor] Respiratory 18 18 18 Rate Blood Pressure 91/49 91/49 O2 Sat by Pulse 100 100 100 Oximetry 12/04/16 12/04/16 12/04/16 23:20 23:30 23:40 Temperature Pulse Rate 93 H 90 83 Pulse Rate [ From Monitor] Respiratory 18 18 18 Rate Blood Pressure 91/49 96/51 96/51 O2 Sat by Pulse 100 100 100 Oximetry 12/04/16 12/05/16 12/05/16 23:50 00:00 00:03 Temperature 98.3 F Pulse Rate 83 83 Pulse Rate [ From Monitor] Respiratory 18 15 Rate Blood Pressure 96/51 95/50 O2 Sat by Pulse 100 100 Oximetry 12/05/16 12/05/16 12/05/16 00:10 00:20 00:30 Temperature Pulse Rate 83 83 87 Pulse Rate [ From Monitor] Respiratory 18 13 15 Rate Blood Pressure 95/50 95/50 103/58 O2 Sat by Pulse 100 100 98 Oximetry 12/05/16 12/05/16 12/05/16 00:40 00:50 01:00 Temperature Pulse Rate 85 83 83 Pulse Rate [ From Monitor] Respiratory 18 19 18 Rate Blood Pressure 103/58 103/58 106/62 O2 Sat by Pulse 100 100 99 Oximetry 12/05/16 12/05/16 12/05/16 01:10 01:20 01:30 Temperature Pulse Rate 101 H 83 86 Pulse Rate [ From Monitor] Respiratory 18 20 17 Rate Blood Pressure 106/62 106/62 104/62 O2 Sat by Pulse 99 100 100 Oximetry 12/05/16 12/05/16 12/05/16 01:40 01:50 02:00 Temperature Pulse Rate 83 83 84 Pulse Rate [ From Monitor] Respiratory 16 18 17 Rate Blood Pressure 106/62 106/62 105/57 O2 Sat by Pulse 100 100 97 Oximetry 12/05/16 12/05/16 12/05/16 02:10 02:20 02:30 Temperature Pulse Rate 75 92 H Pulse Rate [ From Monitor] Respiratory 15 18 Rate Blood Pressure 105/57 105/57 105/57 O2 Sat by Pulse 100 93 90 Oximetry 12/05/16 12/05/16 12/05/16 02:40 02:50 03:00 Temperature Pulse Rate 84 83 83 Pulse Rate [ 87 From Monitor] Respiratory 19 19 18 Rate Blood Pressure 83/39 83/39 87/42 O2 Sat by Pulse 99 100 100 Oximetry 12/05/16 12/05/16 12/05/16 03:10 03:20 03:30 Temperature Pulse Rate 84 85 83 Pulse Rate [ From Monitor] Respiratory 18 18 20 Rate Blood Pressure 87/42 87/42 94/53 O2 Sat by Pulse 100 100 100 Oximetry 12/05/16 12/05/16 12/05/16 03:40 03:50 04:00 Temperature 97.5 F L Pulse Rate 87 84 83 Pulse Rate [ From Monitor] Respiratory 18 16 15 Rate Blood Pressure 94/53 94/53 94/53 O2 Sat by Pulse 100 100 100 Oximetry 12/05/16 12/05/16 12/05/16 04:10 04:20 04:30 Temperature Pulse Rate 83 83 83 Pulse Rate [ From Monitor] Respiratory 18 17 18 Rate Blood Pressure 102/58 102/58 109/59 O2 Sat by Pulse 100 100 100 Oximetry 12/05/16 12/05/16 12/05/16 04:40 04:50 04:55 Temperature Pulse Rate 86 84 85 Pulse Rate [ From Monitor] Respiratory 18 18 Rate Blood Pressure 102/58 102/58 109/59 O2 Sat by Pulse 100 100 100 Oximetry 12/05/16 12/05/16 12/05/16 05:00 05:10 05:20 Temperature Pulse Rate 86 86 86 Pulse Rate [ From Monitor] Respiratory 18 18 18 Rate Blood Pressure 102/58 112/51 112/51 O2 Sat by Pulse 100 100 Oximetry 12/05/16 12/05/16 12/05/16 05:30 05:40 05:50 Temperature Pulse Rate 86 83 83 Pulse Rate [ From Monitor] Respiratory 18 18 18 Rate Blood Pressure 89/53 89/53 89/53 O2 Sat by Pulse 100 100 Oximetry 12/05/16 12/05/16 12/05/16 06:00 06:10 06:20 Temperature Pulse Rate 86 85 84 Pulse Rate [ From Monitor] Respiratory 18 17 18 Rate Blood Pressure 89/53 81/51 81/51 O2 Sat by Pulse 100 100 100 Oximetry 12/05/16 12/05/16 12/05/16 06:30 06:40 06:50 Temperature Pulse Rate 84 86 85 Pulse Rate [ From Monitor] Respiratory 18 18 18 Rate Blood Pressure 81/51 99/45 99/45 O2 Sat by Pulse 100 100 Oximetry 12/05/16 12/05/16 12/05/16 07:00 07:10 07:20 Temperature Pulse Rate 87 83 84 Pulse Rate [ 83 From Monitor] Respiratory 18 18 18 Rate Blood Pressure 104/49 104/49 104/49 O2 Sat by Pulse 100 100 100 Oximetry 12/05/16 12/05/16 12/05/16 07:30 07:40 07:50 Temperature Pulse Rate 84 87 84 Pulse Rate [ From Monitor] Respiratory 20 18 17 Rate Blood Pressure 104/49 95/45 95/45 O2 Sat by Pulse 100 100 100 Oximetry 12/05/16 12/05/16 12/05/16 08:00 08:10 08:20 Temperature 97.4 F L Pulse Rate 84 93 H 88 Pulse Rate [ From Monitor] Respiratory 14 15 19 Rate Blood Pressure 95/51 95/51 95/51 O2 Sat by Pulse 100 91 100 Oximetry 12/05/16 12/05/16 12/05/16 08:30 08:40 08:50 Temperature Pulse Rate 80 86 101 H Pulse Rate [ From Monitor] Respiratory 16 18 14 Rate Blood Pressure 102/59 102/59 102/59 O2 Sat by Pulse 100 100 100 Oximetry 12/05/16 12/05/16 12/05/16 09:00 09:10 09:20 Temperature Pulse Rate 91 H 92 H 89 Pulse Rate [ From Monitor] Respiratory 13 18 7 L Rate Blood Pressure 102/59 84/58 102/59 O2 Sat by Pulse 100 100 100 Oximetry 12/05/16 12/05/16 12/05/16 09:30 09:40 09:50 Temperature Pulse Rate 87 86 83 Pulse Rate [ From Monitor] Respiratory 18 18 Rate Blood Pressure 90/49 90/49 90/49 O2 Sat by Pulse 100 100 100 Oximetry 12/05/16 12/05/16 12/05/16 10:00 10:10 10:20 Temperature Pulse Rate 86 90 85 Pulse Rate [ From Monitor] Respiratory 18 18 18 Rate Blood Pressure 90/49 90/50 90/50 O2 Sat by Pulse 100 100 100 Oximetry 12/05/16 12/05/16 10:30 10:40 Temperature Pulse Rate 83 83 Pulse Rate [ From Monitor] Respiratory 20 18 Rate Blood Pressure 91/57 91/57 O2 Sat by Pulse 100 95 Oximetry Constitutional: comatose, appears uncomfortable ENT: other (orally intubated) Neck: supple, no JVD Ascultation: Bilateral: rhonchi Percussion: Bilateral: not dull Cardiovascular: other (pacemaker rhythm) Gastrointestinal: normoactive bowel sounds, soft Extremities: no edema, cool Neurologic: unable to assess (RA SS -3) CBC and BMP: 12/05/16 05:00 12/05/16 05:00 ABG, PT/INR, D-dimer: ABG POC ABG pH 7.373 (7.35-7.45) 12/05/16 06:00 POC ABG pCO2 32.5 (35-45) L 12/05/16 06:00 POC ABG pO2 124 (80-105) H 12/05/16 06:00 POC ABG HCO3 18.9 12/05/16 06:00 POC ABG Total CO2 20 12/05/16 06:00 POC ABG O2 Sat 99 12/05/16 06:00 PT/INR, D-dimer PT 16.6 Sec. (12.2-14.9) H 12/02/16 19:20 INR 1.27 (0.87-1.13) H 12/02/16 19:20 Abnormal lab findings: Abnormal Labs 11/28/16 11/28/16 11/28/16 14:16 16:02 16:02 WBC RBC Hgb Hct MCH MCHC RDW Plt Count Lymph % (Auto) [place] % (Auto) Lymph # [place] # Seg Neutrophils % Seg Neuts % (Manual) Lymphocytes % (Manual) Monocytes % (Manual) Seg Neutrophils # Seg Neutrophils # Man Lymphocytes # (Manual) Monocytes # (Manual) PT 17.3 H INR 1.42 H APTT 38.0 H Heparin Anti-Xa Level POC ABG pH POC ABG pCO2 POC ABG pO2 Sodium Potassium 3.3 L Chloride 96.0 L Carbon Dioxide BUN 100 H Creatinine 3.4 H Glucose 235 H POC Glucose 500 H Hemoglobin A1c Lactic Acid Calcium Total Bilirubin Troponin T Total Protein Albumin HDL Cholesterol Urine Creatinine 11/28/16 11/28/16 11/29/16 16:02 21:30 05:50 WBC RBC Hgb Hct MCH MCHC RDW Plt Count Lymph % (Auto) [place] % (Auto) Lymph # [place] # Seg Neutrophils % Seg Neuts % (Manual) Lymphocytes % (Manual) Monocytes % (Manual) Seg Neutrophils # Seg Neutrophils # Man Lymphocytes # (Manual) Monocytes # (Manual) PT INR APTT Heparin Anti-Xa Level POC ABG pH POC ABG pCO2 POC ABG pO2 Sodium Potassium Chloride Carbon Dioxide BUN Creatinine Glucose POC Glucose 68 L 40 L Hemoglobin A1c 10.6 H Lactic Acid Calcium Total Bilirubin Troponin T Total Protein Albumin HDL Cholesterol Urine Creatinine 11/29/16 11/29/16 11/29/16 06:33 08:37 08:37 WBC RBC Hgb 10.2 L Hct 30.9 L MCH MCHC RDW 16.0 H Plt Count 104 L Lymph % (Auto) 2.4 L [place] % (Auto) 8.5 H Lymph # 0.2 L [place] # 0.9 H Seg Neutrophils % 89.0 H Seg Neuts % (Manual) Lymphocytes % (Manual) Monocytes % (Manual) Seg Neutrophils # 9.2 H Seg Neutrophils # Man Lymphocytes # (Manual) Monocytes # (Manual) PT INR APTT Heparin Anti-Xa Level POC ABG pH POC ABG pCO2 POC ABG pO2 Sodium Potassium Chloride Carbon Dioxide BUN 95 H Creatinine 2.9 H Glucose POC Glucose 57 L Hemoglobin A1c Lactic Acid Calcium Total Bilirubin Troponin T Total Protein Albumin HDL Cholesterol Urine Creatinine 11/29/16 11/29/16 11/29/16 11:41 12:48 15:44 WBC RBC Hgb Hct MCH MCHC RDW Plt Count Lymph % (Auto) [place] % (Auto) Lymph # [place] # Seg Neutrophils % Seg Neuts % (Manual) Lymphocytes % (Manual) Monocytes % (Manual) Seg Neutrophils # Seg Neutrophils # Man Lymphocytes # (Manual) Monocytes # (Manual) PT INR APTT Heparin Anti-Xa Level POC ABG pH POC ABG pCO2 POC ABG pO2 Sodium Potassium Chloride Carbon Dioxide BUN Creatinine Glucose POC Glucose 48 L 143 H 138 H Hemoglobin A1c Lactic Acid Calcium Total Bilirubin Troponin T Total Protein Albumin HDL Cholesterol Urine Creatinine 11/29/16 11/29/16 11/30/16 21:04 22:26 06:11 WBC RBC Hgb Hct MCH MCHC RDW Plt Count Lymph % (Auto) [place] % (Auto) Lymph # [place] # Seg Neutrophils % Seg Neuts % (Manual) Lymphocytes % (Manual) Monocytes % (Manual) Seg Neutrophils # Seg Neutrophils # Man Lymphocytes # (Manual) Monocytes # (Manual) PT INR APTT Heparin Anti-Xa Level POC ABG pH POC ABG pCO2 POC ABG pO2 Sodium Potassium Chloride Carbon Dioxide BUN Creatinine Glucose POC Glucose 49 L 165 H 121 H Hemoglobin A1c Lactic Acid Calcium Total Bilirubin Troponin T Total Protein Albumin HDL Cholesterol Urine Creatinine 11/30/16 11/30/16 11/30/16 08:53 08:53 10:00 WBC RBC Hgb 10.9 L Hct 33.2 L MCH MCHC RDW 16.3 H Plt Count 96 L Lymph % (Auto) [place] % (Auto) Lymph # [place] # Seg Neutrophils % Seg Neuts % (Manual) 91.0 H Lymphocytes % (Manual) 2.0 L Monocytes % (Manual) Seg Neutrophils # Seg Neutrophils # Man 9.3 H Lymphocytes # (Manual) 0.2 L Monocytes # (Manual) PT INR APTT Heparin Anti-Xa Level POC ABG pH POC ABG pCO2 POC ABG pO2 Sodium Potassium Chloride Carbon Dioxide BUN 78 H Creatinine 2.3 H Glucose 139 H POC Glucose Hemoglobin A1c Lactic Acid Calcium 8.3 L Total Bilirubin Troponin T Total Protein Albumin HDL Cholesterol Urine Creatinine 78.6 H 11/30/16 11/30/16 11/30/16 11:23 17:43 20:23 WBC RBC Hgb Hct MCH MCHC RDW Plt Count Lymph % (Auto) [place] % (Auto) Lymph # [place] # Seg Neutrophils % Seg Neuts % (Manual) Lymphocytes % (Manual) Monocytes % (Manual) Seg Neutrophils # Seg Neutrophils # Man Lymphocytes # (Manual) Monocytes # (Manual) PT INR APTT Heparin Anti-Xa Level POC ABG pH POC ABG pCO2 POC ABG pO2 Sodium Potassium Chloride Carbon Dioxide BUN Creatinine Glucose POC Glucose 169 H 57 L 69 L Hemoglobin A1c Lactic Acid Calcium Total Bilirubin Troponin T Total Protein Albumin HDL Cholesterol Urine Creatinine 11/30/16 11/30/16 12/01/16 20:37 22:12 07:39 WBC 12.9 H RBC Hgb 10.9 L Hct 33.2 L MCH MCHC RDW 16.6 H Plt Count 94 L Lymph % (Auto) [place] % (Auto) Lymph # [place] # Seg Neutrophils % Seg Neuts % (Manual) 98.0 H Lymphocytes % (Manual) 0 L Monocytes % (Manual) Seg Neutrophils # Seg Neutrophils # Man 12.6 H Lymphocytes # (Manual) 0.0 L Monocytes # (Manual) PT INR APTT Heparin Anti-Xa Level POC ABG pH POC ABG pCO2 POC ABG pO2 Sodium Potassium Chloride Carbon Dioxide BUN Creatinine Glucose POC Glucose 107 H Hemoglobin A1c Lactic Acid Calcium Total Bilirubin Troponin T 0.033 H Total Protein Albumin HDL Cholesterol 36 L Urine Creatinine 12/01/16 12/01/16 12/01/16 07:39 11:48 17:02 WBC RBC Hgb Hct MCH MCHC RDW Plt Count Lymph % (Auto) [place] % (Auto) Lymph # [place] # Seg Neutrophils % Seg Neuts % (Manual) Lymphocytes % (Manual) Monocytes % (Manual) Seg Neutrophils # Seg Neutrophils # Man Lymphocytes # (Manual) Monocytes # (Manual) PT INR APTT Heparin Anti-Xa Level POC ABG pH POC ABG pCO2 POC ABG pO2 Sodium Potassium Chloride Carbon Dioxide BUN 71 H Creatinine 2.1 H Glucose POC Glucose 193 H 170 H Hemoglobin A1c Lactic Acid Calcium 8.1 L Total Bilirubin Troponin T Total Protein Albumin HDL Cholesterol Urine Creatinine 12/01/16 12/02/16 12/02/16 21:17 06:05 06:34 WBC RBC Hgb Hct MCH MCHC RDW Plt Count Lymph % (Auto) [place] % (Auto) Lymph # [place] # Seg Neutrophils % Seg Neuts % (Manual) Lymphocytes % (Manual) Monocytes % (Manual) Seg Neutrophils # Seg Neutrophils # Man Lymphocytes # (Manual) Monocytes # (Manual) PT INR APTT Heparin Anti-Xa Level POC ABG pH POC ABG pCO2 POC ABG pO2 Sodium Potassium Chloride Carbon Dioxide BUN Creatinine Glucose POC Glucose 156 H < 40 L 141 H Hemoglobin A1c Lactic Acid Calcium Total Bilirubin Troponin T Total Protein Albumin HDL Cholesterol Urine Creatinine 12/02/16 12/02/16 12/02/16 06:41 07:48 07:48 WBC RBC Hgb 10.2 L Hct 31.4 L MCH 27 L MCHC RDW 16.3 H Plt Count 89 L Lymph % (Auto) [place] % (Auto) Lymph # [place] # Seg Neutrophils % Seg Neuts % (Manual) 87.0 H Lymphocytes % (Manual) 7.0 L Monocytes % (Manual) Seg Neutrophils # Seg Neutrophils # Man 8.9 H Lymphocytes # (Manual) 0.7 L Monocytes # (Manual) PT INR APTT Heparin Anti-Xa Level POC ABG pH POC ABG pCO2 POC ABG pO2 Sodium 136 L Potassium Chloride Carbon Dioxide BUN 75 H Creatinine 2.7 H Glucose POC Glucose 124 H Hemoglobin A1c Lactic Acid Calcium 7.9 L Total Bilirubin Troponin T Total Protein Albumin HDL Cholesterol Urine Creatinine 12/02/16 12/02/16 12/02/16 12:22 18:02 19:20 WBC RBC Hgb Hct MCH MCHC RDW Plt Count Lymph % (Auto) [place] % (Auto) Lymph # [place] # Seg Neutrophils % Seg Neuts % (Manual) Lymphocytes % (Manual) Monocytes % (Manual) Seg Neutrophils # Seg Neutrophils # Man Lymphocytes # (Manual) Monocytes # (Manual) PT 16.6 H INR 1.27 H APTT 45.4 H Heparin Anti-Xa Level POC ABG pH POC ABG pCO2 POC ABG pO2 Sodium Potassium Chloride Carbon Dioxide BUN Creatinine Glucose POC Glucose < 40 L 53 L Hemoglobin A1c Lactic Acid Calcium Total Bilirubin Troponin T Total Protein Albumin HDL Cholesterol Urine Creatinine 12/02/16 12/02/16 12/02/16 19:23 19:23 19:39 WBC 13.8 H RBC Hgb 10.9 L Hct 34.6 L MCH 27 L MCHC 31 L RDW 16.2 H Plt Count 106 L Lymph % (Auto) [place] % (Auto) Lymph # [place] # Seg Neutrophils % Seg Neuts % (Manual) 86.0 H Lymphocytes % (Manual) 4.0 L Monocytes % (Manual) Seg Neutrophils # Seg Neutrophils # Man 11.9 H Lymphocytes # (Manual) 0.6 L Monocytes # (Manual) 1.0 H PT INR APTT Heparin Anti-Xa Level POC ABG pH POC ABG pCO2 POC ABG pO2 Sodium Potassium Chloride 95.8 L Carbon Dioxide BUN 75 H Creatinine 2.8 H Glucose 105 H POC Glucose 141 H Hemoglobin A1c Lactic Acid Calcium 7.8 L Total Bilirubin 2.70 H Troponin T Total Protein 6.0 L Albumin 2.7 L HDL Cholesterol Urine Creatinine 12/02/16 12/03/16 12/03/16 21:14 01:15 04:15 WBC RBC Hgb Hct MCH MCHC RDW Plt Count Lymph % (Auto) [place] % (Auto) Lymph # [place] # Seg Neutrophils % Seg Neuts % (Manual) Lymphocytes % (Manual) Monocytes % (Manual) Seg Neutrophils # Seg Neutrophils # Man Lymphocytes # (Manual) Monocytes # (Manual) PT INR APTT Heparin Anti-Xa Level < 0.10 L POC ABG pH 7.214 L POC ABG pCO2 54.0 H POC ABG pO2 227 H 72 L Sodium Potassium Chloride Carbon Dioxide BUN Creatinine Glucose POC Glucose Hemoglobin A1c Lactic Acid Calcium Total Bilirubin Troponin T Total Protein Albumin HDL Cholesterol Urine Creatinine 12/03/16 12/03/16 12/03/16 05:15 06:04 06:04 WBC 45.9 H* RBC Hgb 10.5 L Hct 32.9 L MCH 27 L MCHC RDW 16.6 H Plt Count 101 L Lymph % (Auto) [place] % (Auto) Lymph # [place] # Seg Neutrophils % Seg Neuts % (Manual) Lymphocytes % (Manual) 8.0 L Monocytes % (Manual) 8.0 H Seg Neutrophils # Seg Neutrophils # Man 31.2 H Lymphocytes # (Manual) Monocytes # (Manual) 3.7 H PT INR APTT Heparin Anti-Xa Level POC ABG pH POC ABG pCO2 POC ABG pO2 Sodium 128 L D Potassium 6.8 H* D Chloride 94.2 L Carbon Dioxide 17 L BUN 77 H Creatinine 2.6 H Glucose POC Glucose 50 L Hemoglobin A1c Lactic Acid Calcium 7.6 L Total Bilirubin Troponin T Total Protein Albumin HDL Cholesterol Urine Creatinine 12/03/16 12/03/16 12/03/16 06:51 08:01 08:13 WBC RBC Hgb Hct MCH MCHC RDW Plt Count Lymph % (Auto) [place] % (Auto) Lymph # [place] # Seg Neutrophils % Seg Neuts % (Manual) Lymphocytes % (Manual) Monocytes % (Manual) Seg Neutrophils # Seg Neutrophils # Man Lymphocytes # (Manual) Monocytes # (Manual) PT INR APTT Heparin Anti-Xa Level POC ABG pH POC ABG pCO2 POC ABG pO2 Sodium Potassium Chloride Carbon Dioxide BUN Creatinine Glucose POC Glucose 118 H 107 H Hemoglobin A1c Lactic Acid Calcium Total Bilirubin Troponin T 0.098 H Total Protein Albumin HDL Cholesterol Urine Creatinine 12/03/16 12/03/16 12/03/16 09:44 12:19 16:39 WBC RBC Hgb Hct MCH MCHC RDW Plt Count Lymph % (Auto) [place] % (Auto) Lymph # [place] # Seg Neutrophils % Seg Neuts % (Manual) Lymphocytes % (Manual) Monocytes % (Manual) Seg Neutrophils # Seg Neutrophils # Man Lymphocytes # (Manual) Monocytes # (Manual) PT INR APTT Heparin Anti-Xa Level POC ABG pH POC ABG pCO2 POC ABG pO2 Sodium Potassium Chloride Carbon Dioxide BUN Creatinine Glucose POC Glucose 115 H Hemoglobin A1c Lactic Acid 3.40 H* 3.10 H* Calcium Total Bilirubin Troponin T Total Protein Albumin HDL Cholesterol Urine Creatinine 12/03/16 12/03/16 12/03/16 17:49 20:15 23:34 WBC 18.9 H RBC 3.04 L Hgb 8.4 L Hct 26.2 L MCH MCHC RDW 16.6 H Plt Count 81 L Lymph % (Auto) [place] % (Auto) Lymph # [place] # Seg Neutrophils % Seg Neuts % (Manual) 94.0 H Lymphocytes % (Manual) 1.0 L Monocytes % (Manual) Seg Neutrophils # Seg Neutrophils # Man 17.8 H Lymphocytes # (Manual) 0.2 L Monocytes # (Manual) PT INR APTT Heparin Anti-Xa Level POC ABG pH POC ABG pCO2 POC ABG pO2 Sodium Potassium Chloride Carbon Dioxide BUN Creatinine Glucose POC Glucose 151 H 188 H Hemoglobin A1c Lactic Acid Calcium Total Bilirubin Troponin T Total Protein Albumin HDL Cholesterol Urine Creatinine 12/03/16 12/03/16 12/04/16 Unknown Unknown 04:57 WBC 22.2 H RBC 3.16 L Hgb 8.6 L Hct 27.3 L MCH 27 L MCHC 31 L RDW 16.9 H Plt Count 81 L Lymph % (Auto) [place] % (Auto) Lymph # [place] # Seg Neutrophils % Seg Neuts % (Manual) Lymphocytes % (Manual) Monocytes % (Manual) Seg Neutrophils # Seg Neutrophils # Man Lymphocytes # (Manual) Monocytes # (Manual) PT INR APTT Heparin Anti-Xa Level POC ABG pH 7.277 L POC ABG pCO2 POC ABG pO2 198 H Sodium 132 L Potassium Chloride 95.8 L Carbon Dioxide 19 L BUN 93 H Creatinine 3.4 H Glucose 130 H POC Glucose Hemoglobin A1c Lactic Acid Calcium 7.4 L Total Bilirubin Troponin T Total Protein Albumin HDL Cholesterol Urine Creatinine 12/04/16 12/04/16 12/04/16 05:45 06:00 06:00 WBC 17.8 H RBC 3.07 L Hgb 8.7 L Hct 26.1 L MCH MCHC RDW 16.5 H Plt Count 93 L Lymph % (Auto) [place] % (Auto) Lymph # [place] # Seg Neutrophils % Seg Neuts % (Manual) 80.0 H Lymphocytes % (Manual) 7.0 L Monocytes % (Manual) Seg Neutrophils # Seg Neutrophils # Man 14.2 H Lymphocytes # (Manual) Monocytes # (Manual) 1.1 H PT INR APTT Heparin Anti-Xa Level POC ABG pH POC ABG pCO2 POC ABG pO2 Sodium 133 L Potassium Chloride 96.0 L Carbon Dioxide 18 L BUN 103 H Creatinine 3.6 H Glucose 190 H POC Glucose 186 H Hemoglobin A1c Lactic Acid Calcium 7.7 L Total Bilirubin Troponin T Total Protein Albumin HDL Cholesterol Urine Creatinine 12/04/16 12/04/16 12/04/16 07:23 11:50 13:22 WBC RBC Hgb Hct MCH MCHC RDW Plt Count Lymph % (Auto) [place] % (Auto) Lymph # [place] # Seg Neutrophils % Seg Neuts % (Manual) Lymphocytes % (Manual) Monocytes % (Manual) Seg Neutrophils # Seg Neutrophils # Man Lymphocytes # (Manual) Monocytes # (Manual) PT INR APTT Heparin Anti-Xa Level POC ABG pH POC ABG pCO2 POC ABG pO2 Sodium Potassium Chloride Carbon Dioxide BUN Creatinine Glucose POC Glucose 187 H 190 H Hemoglobin A1c Lactic Acid 2.60 H* Calcium Total Bilirubin Troponin T Total Protein Albumin HDL Cholesterol Urine Creatinine 12/04/16 12/04/16 12/05/16 17:46 23:33 05:00 WBC 17.1 H RBC 3.03 L Hgb 8.2 L Hct 25.9 L MCH 27 L MCHC RDW 16.4 H Plt Count 81 L Lymph % (Auto) 1.3 L [place] % (Auto) 9.7 H Lymph # 0.2 L [place] # 1.7 H Seg Neutrophils % 88.9 H Seg Neuts % (Manual) Lymphocytes % (Manual) Monocytes % (Manual) Seg Neutrophils # 15.2 H Seg Neutrophils # Man Lymphocytes # (Manual) Monocytes # (Manual) PT INR APTT Heparin Anti-Xa Level POC ABG pH POC ABG pCO2 POC ABG pO2 Sodium Potassium Chloride Carbon Dioxide BUN Creatinine Glucose POC Glucose 264 H 263 H Hemoglobin A1c Lactic Acid Calcium Total Bilirubin Troponin T Total Protein Albumin HDL Cholesterol Urine Creatinine 12/05/16 12/05/16 12/05/16 05:00 05:17 06:00 WBC RBC Hgb Hct MCH MCHC RDW Plt Count Lymph % (Auto) [place] % (Auto) Lymph # [place] # Seg Neutrophils % Seg Neuts % (Manual) Lymphocytes % (Manual) Monocytes % (Manual) Seg Neutrophils # Seg Neutrophils # Man Lymphocytes # (Manual) Monocytes # (Manual) PT INR APTT Heparin Anti-Xa Level POC ABG pH POC ABG pCO2 32.5 L POC ABG pO2 124 H Sodium 132 L Potassium Chloride 96.9 L Carbon Dioxide 19 L BUN 120 H Creatinine 4.8 H Glucose 193 H POC Glucose 229 H Hemoglobin A1c Lactic Acid Calcium 8.0 L Total Bilirubin Troponin T Total Protein Albumin HDL Cholesterol Urine Creatinine
--- NOTE | 2016-12-05 11:21 | Progress Note ---
Assessment and Plan Echo: LVEF 15 to 20%, Mild to moderate MR, Mild AR, Moderate TR, Moderate pulmonary hypertension,Moderate RV dysfunction. Present management including vasopressor.Prognosis is guarded. - Patient Problems (1) Hx-sudden cardiac arrest Current Visit: Yes Status: Acute (2) Abnormal EKG Current Visit: Yes Status: Acute (3) Bilateral leg ulcer Current Visit: Yes Status: Chronic Qualifiers: Non-pressure ulcer stage: N (4) Chest pain Current Visit: Yes Status: Chronic Qualifiers: Chest pain type: C Ischemic chest pain type: I (5) Shortness of breath Current Visit: Yes Status: Chronic (6) Wound infection Current Visit: Yes Status: Chronic (7) Acute on chronic renal failure Current Visit: No Status: Acute Qualifiers: Acute renal failure type: A Chronic kidney disease stage: C (8) Acute on chronic systolic heart failure Current Visit: No Status: Acute (9) COPD exacerbation Current Visit: No Status: Acute (10) Dehydration Current Visit: No Status: Acute (11) CAD (coronary artery disease) Current Visit: No Status: Chronic Qualifiers: Coronary Disease-Associated Artery/Lesion type: C [place] vs. transplanted heart: N Associated angina: A (12) Diabetes Current Visit: No Status: Chronic Qualifiers: Diabetes mellitus type: D Diabetes mellitus complication status: D Diabetes mellitus complication detail: D Diabetic retinopathy severity: D Proliferative retinopathy type: P Diabetes mellitus macular edema: D Diabetes mellitus long-term insulin use: D Laterality: L Chronic kidney disease stage: C (13) Hx of CABG Current Visit: No Status: Chronic (14) Ischemic cardiomyopathy Current Visit: No Status: Chronic (15) PAD (peripheral artery disease) Current Visit: No Status: Chronic (16) S/P implantation of automatic cardioverter/defibrillator (AICD) Current Visit: No Status: Chronic (17) Mitral regurgitation Current Visit: Yes Status: Chronic Qualifiers: Cardiac valve disease etiology: C (18) Tricuspid valve regurgitation Current Visit: Yes Status: Chronic Qualifiers: Cardiac valve disease etiology: C (19) Pulmonary hypertension Current Visit: Yes Status: Chronic Subjective Date of service: 12/05/16 Principal diagnosis: cardiac arrest, respiratory failure bilateral leg wounds; TREMAINE Interval history: Intubated,Mild response to commands (just received IV ativan for restlessness) .Pupils - reactive to light.On Levophed - BP 91 to 100 systolic.Mpnitor: V.paced beats with rate around 88/Mt.K 4.7, Cr: 4.8. Objective Vital Signs Temp Pulse Pulse Pulse Resp Resp BP 12/05/16 10:40 83 18 91/57 12/05/16 10:30 83 20 91/57 12/05/16 10:20 85 18 90/50 12/05/16 10:10 90 18 90/50 12/05/16 10:00 86 18 90/49 12/05/16 09:50 83 18 90/49 12/05/16 09:40 86 18 90/49 12/05/16 09:30 87 19 90/49 12/05/16 09:20 89 7 L 102/59 12/05/16 09:10 92 H 18 84/58 12/05/16 09:00 91 H 13 102/59 12/05/16 08:50 101 H 14 102/59 12/05/16 08:40 86 18 102/59 12/05/16 08:30 80 16 102/59 12/05/16 08:20 88 19 95/51 12/05/16 08:10 93 H 15 95/51 12/05/16 08:00 97.4 F L 84 14 95/51 12/05/16 07:50 84 17 95/45 12/05/16 07:40 87 18 95/45 12/05/16 07:30 84 20 104/49 12/05/16 07:20 84 18 104/49 12/05/16 07:10 83 18 104/49 12/05/16 07:00 87 83 18 104/49 12/05/16 06:50 85 18 99/45 12/05/16 06:40 86 18 99/45 12/05/16 06:30 84 18 81/51 12/05/16 06:20 84 18 81/51 12/05/16 06:10 85 17 81/51 12/05/16 06:00 86 18 89/53 12/05/16 05:50 83 18 89/53 12/05/16 05:40 83 18 89/53 12/05/16 05:30 86 18 89/53 12/05/16 05:20 86 18 112/51 12/05/16 05:10 86 18 112/51 12/05/16 05:00 86 18 102/58 12/05/16 04:55 85 109/59 12/05/16 04:50 84 18 102/58 12/05/16 04:40 86 18 102/58 12/05/16 04:30 83 18 109/59 12/05/16 04:20 83 17 102/58 12/05/16 04:10 83 18 102/58 12/05/16 04:00 97.5 F L 83 15 94/53 12/05/16 03:50 84 16 94/53 12/05/16 03:40 87 18 94/53 12/05/16 03:30 83 20 94/53 12/05/16 03:20 85 18 87/42 12/05/16 03:10 84 18 87/42 12/05/16 03:00 83 87 18 87/42 12/05/16 02:50 83 19 83/39 12/05/16 02:40 84 19 83/39 12/05/16 02:30 105/57 12/05/16 02:20 92 H 18 105/57 12/05/16 02:10 75 15 105/57 12/05/16 02:00 84 17 105/57 12/05/16 01:50 83 18 106/62 12/05/16 01:40 83 16 106/62 12/05/16 01:30 86 17 104/62 12/05/16 01:20 83 20 106/62 12/05/16 01:10 101 H 18 106/62 12/05/16 01:00 83 18 106/62 12/05/16 00:50 83 19 103/58 12/05/16 00:40 85 18 103/58 12/05/16 00:30 87 15 103/58 12/05/16 00:20 83 13 95/50 12/05/16 00:10 83 18 95/50 12/05/16 00:03 98.3 F 12/05/16 00:00 83 15 95/50 12/04/16 23:50 83 18 96/51 12/04/16 23:40 83 18 96/51 12/04/16 23:30 90 18 96/51 12/04/16 23:20 93 H 18 91/49 12/04/16 23:16 83 18 91/49 12/04/16 23:10 83 18 91/49 06/25/17 23:09 90 18 17 23:00 83 18 91/49 17 22:50 83 18 96/53 17 22:40 83 18 96/53 12/04/17 22:30 83 18 96/53 17 22:20 83 18 96/52 17 22:10 83 18 96/52 17 22:00 83 18 96/52 17 21:50 83 18 97/51 17 21:40 83 18 97/51 17 21:30 83 18 97/51 17 21:20 83 18 94/50 17 21:10 83 18 94/50 17 21:00 83 18 94/50 17 20:50 83 18 96/51 12/04/16 20:40 83 18 96/51 17 20:30 83 18 96/51 17 20:28 97.3 F L 12/04/16 20:20 83 18 87/50 17 20:10 83 18 87/50 17 20:04 85 87/50 17 20:00 86 18 87/50 17 19:50 83 18 92/53 17 19:40 87 18 92/53 17 19:30 88 18 92/53 17 19:20 86 18 96/53 17 19:10 86 18 96/53 17 19:09 83 18 17 19:00 83 18 96/53 17 18:50 83 18 88/49 17 18:40 86 18 88/49 17 18:30 87 18 88/49 17 18:20 87 18 86/47 17 18:10 88 18 86/47 17 18:00 83 18 86/47 17 17:50 83 18 91/52 17 17:40 83 18 91/52 17 17:30 84 14 98/50 17 17:20 83 16 98/50 06/25/17 17:10 83 16 98/50 12/04/17 17:00 83 13 91/52 17 16:50 87 21 95/51 17 16:40 83 15 95/51 17 16:30 86 18 95/51 17 16:20 83 18 96/51 17 16:10 84 18 96/51 12/04/16 16:00 97.4 F L 83 83 18 96/51 12/04/16 15:50 84 13 99/52 12/04/16 15:40 83 18 99/52 12/04/16 15:30 83 18 99/52 12/04/16 15:20 83 18 98/55 12/04/16 15:15 83 18 12/04/16 15:10 83 18 98/55 12/04/16 15:02 79 18 12/04/16 15:00 83 18 98/55 12/04/16 14:50 83 15 97/52 12/04/16 14:40 83 16 97/52 12/04/16 14:30 84 17 97/52 12/04/16 14:20 88 15 95/48 17 14:10 83 17 95/48 12/04/16 14:00 83 17 95/48 17 13:50 83 19 96/57 17 13:40 83 17 96/57 17 13:30 83 14 96/57 17 13:20 83 15 99/52 12/04/16 13:10 86 15 99/52 17 13:00 83 17 99/52 17 12:50 83 16 95/52 17 12:40 84 18 95/52 17 12:30 86 15 95/52 17 12:20 83 17 99/51 17 12:10 83 19 99/51 12/04/16 12:02 97.9 F 12/04/16 12:00 83 83 18 99/51 17 11:50 83 13 107/59 17 11:40 83 17 107/59 17 11:30 83 16 107/59 12/04/16 11:20 83 19 96/57 Pulse Ox 12/05/16 10:40 95 12/05/16 10:30 100 12/05/16 10:20 100 12/05/16 10:10 100 12/05/16 10:00 100 12/05/16 09:50 100 12/05/16 09:40 100 12/05/16 09:30 100 12/05/16 09:20 100 12/05/16 09:10 100 12/05/16 09:00 100 12/05/16 08:50 100 12/05/16 08:40 100 12/05/16 08:30 100 12/05/16 08:20 100 12/05/16 08:10 91 12/05/16 08:00 100 12/05/16 07:50 100 12/05/16 07:40 100 12/05/16 07:30 100 12/05/16 07:20 100 12/05/16 07:10 100 12/05/16 07:00 100 12/05/16 06:50 100 12/05/16 06:40 100 12/05/16 06:30 12/05/16 06:20 100 12/05/16 06:10 100 12/05/16 06:00 100 12/05/16 05:50 100 12/05/16 05:40 100 12/05/16 05:30 12/05/16 05:20 100 12/05/16 05:10 100 12/05/16 05:00 12/05/16 04:55 100 12/05/16 04:50 100 12/05/16 04:40 100 12/05/16 04:30 100 12/05/16 04:20 100 12/05/16 04:10 100 12/05/16 04:00 100 12/05/16 03:50 100 12/05/16 03:40 100 12/05/16 03:30 100 12/05/16 03:20 100 12/05/16 03:10 100 12/05/16 03:00 100 12/05/16 02:50 100 12/05/16 02:40 99 12/05/16 02:30 90 12/05/16 02:20 93 12/05/16 02:10 100 12/05/16 02:00 97 12/05/16 01:50 100 12/05/16 01:40 100 12/05/16 01:30 100 12/05/16 01:20 100 12/05/16 01:10 99 12/05/16 01:00 99 12/05/16 00:50 100 12/05/16 00:40 100 12/05/16 00:30 98 12/05/16 00:20 100 12/05/16 00:10 100 12/05/16 00:03 12/05/16 00:00 100 12/04/16 23:50 100 12/04/16 23:40 100 12/04/16 23:30 100 12/04/16 23:20 100 12/04/16 23:16 100 12/04/16 23:10 100 12/04/16 23:09 100 12/04/16 23:00 100 12/04/16 22:50 100 12/04/16 22:40 100 12/04/16 22:30 12/04/16 22:20 100 12/04/16 22:10 100 12/04/16 22:00 12/04/16 21:50 100 12/04/16 21:40 100 12/04/16 21:30 100 12/04/16 21:20 100 12/04/16 21:10 100 12/04/16 21:00 100 12/04/16 20:50 100 12/04/16 20:40 100 12/04/16 20:30 100 12/04/16 20:28 12/04/16 20:20 100 12/04/16 20:10 100 12/04/16 20:04 100 12/04/16 20:00 100 12/04/16 19:50 100 12/04/16 19:40 100 12/04/16 19:30 100 12/04/16 19:20 100 12/04/16 19:10 99 12/04/16 19:09 100 12/04/16 19:00 12/04/16 18:50 97 12/04/16 18:40 97 12/04/16 18:30 100 12/04/16 18:20 100 12/04/16 18:10 100 12/04/16 18:00 100 12/04/16 17:50 100 12/04/16 17:40 100 12/04/16 17:30 99 12/04/16 17:20 100 12/04/16 17:10 100 12/04/16 17:00 100 12/04/16 16:50 12/04/16 16:40 100 12/04/16 16:30 12/04/16 16:20 100 12/04/16 16:10 100 12/04/16 16:00 12/04/16 15:50 93 12/04/16 15:40 12/04/16 15:30 12/04/16 15:20 99 12/04/16 15:15 12/04/16 15:10 12/04/16 15:02 12/04/16 15:00 12/04/16 14:50 12/04/16 14:40 12/04/16 14:30 99 12/04/16 14:20 100 12/04/16 14:10 95 12/04/16 14:00 97 12/04/16 13:50 97 12/04/16 13:40 98 12/04/16 13:30 12/04/16 13:20 100 12/04/16 13:10 100 12/04/16 13:00 100 12/04/16 12:50 98 12/04/16 12:40 98 12/04/16 12:30 98 12/04/16 12:20 98 12/04/16 12:10 99 12/04/16 12:02 12/04/16 12:00 98 12/04/16 11:50 12/04/16 11:40 100 12/04/16 11:30 99 12/04/16 11:20 100 - Physical Examination General: Other ( Intubated, Mild response to commands) HEENT: Positive: Normocephaly, Mucus Membranes Moist, Other (Pupils: reacting to light.) Neck: Positive: neck supple, trachea midline Cardiac: Positive: Regular Rate, Other (v.paced.) Lungs: Positive: clear to auscultation, No Wheeze, Rales, Rhonchi, Other ( Intubated On 30% FIO2, PEEP 5) Neuro: Positive: Other (Arousable, Minimal response to commands.) Abdomen: Positive: Soft, Active Bowel Sounds Skin: Positive: Clear, Other (Multiple ulcers in the legs - Dressing in situ.). Negative: Rash Musculoskeletal: other (Dressing in situ (multiple ulcers in the legs).) Extremities: Present: +2 Edema. Absent: lower extr. pulses - Labs and Meds CBC 12/05/16 Range/Units 05:00 WBC 17.1 H (4.5-11.0) K/mm3 RBC 3.03 L (3.65-5.03) M/mm3 Hgb 8.2 L (11.8-15.2) gm/dl Hct 25.9 L (35.5-45.6) % Plt Count 81 L (140-440) K/mm3 Lymph # 0.2 L (1.2-5.4) K/mm3 [place] # 1.7 H (0.0-0.8) K/mm3 Eos # 0.0 (0.0-0.4) K/mm3 Baso # 0.0 (0.0-0.1) K/mm3 Comprehensive Metabolic Panel 12/05/16 Range/Units 05:00 Sodium 132 L (137-145) mmol/L Potassium 4.7 (3.6-5.0) mmol/L Chloride 96.9 L (98-107) mmol/L Carbon Dioxide 19 L (22-30) mmol/L BUN 120 H (9-20) mg/dL Creatinine 4.8 H (0.8-1.5) mg/dL Glucose 193 H (75-100) mg/dL Calcium 8.0 L (8.4-10.2) mg/dL - Imaging and Cardiology EKG: report reviewed, image reviewed Echo: report reviewed, image reviewed - Telemetry EKG Rhythm: Paced
[2016-12-05] MEDS ORDERED: SODIUM BICARBONATE FEEDTUBE PRN (11:26)
[2016-12-05] MEDS ORDERED: SIMPLE SYRUP FEEDTUBE PRN ×2 (11:26)
[2016-12-05] MEDS ORDERED: PANCREAZE DR 10,500 UNIT FEEDTUBE PRN (11:26)
--- NOTE | 2016-12-05 12:36 | XRay Report ---
SUPINE KUB: History: Dobbhoff tube placement. The abdominal gas pattern is unremarkable. No masses or organomegaly is identified and there is no gross evidence of free air or fluid. No significant soft tissue calcifications are noted. The Dobbhoff tube terminates in the fundus of the stomach. Moderate cardiomegaly is noted. IMPRESSION: Feeding tube terminates in the fundus of the stomach.
[2016-12-05] MEDS: TRIPLE ANTIBIOTIC TP SCH (15:00)
--- NOTE | 2016-12-05 16:58 | Progress Note ---
Assessment and Plan Assessment and plan: 3 days ago the patient has difficulty of breathing while eating and then he went to asystole and He was successfully resuscitated then transfer to the ICU. Sean has VF while he was resuscitated and He was shocked. Asystole, Respiratory failure secondary to chocking and aspiration - S/P in [facility] cardiac arrest - Intubated on mechanical ventilation - Slight elevation in troponin - Continue IV Rocephin Lactic acidosis - on sodium bicarbonate and IV fluids Bilateral DM leg ulcer - sensitivity is back and sensitive to ceftriaxone. DM - Sliding scale insulin Acute on chronic kidney disease - patient may need dialyis The high probability of a clinically significant, sudden or life threatening deterioration of the [neurology, CV, repiratory] system(s) required my full and direct attention, intervention and personal management. The aggregate critical care time was [31] minutes. This time is in addition to time spent performing reported procedures but includes the following: [x] Data Review and interpretation [x] Patient assessment and monitoring of vital signs [x] Documentation [x] Medication orders and management Hypertension CAD Chronic systolic heart failure - Patient is on Unasyn and vancomycin, ID consult appreciated - Doppler ultrasound of the legs is normal - Pulmonary consult appreciated - Nephrology consult appreciated DVT prophylaxis - Heparin Disposition Continue ICU care History Interval history: Patient was seen and evaluated this morning, he intubated and on mechanical ventilation. On pressors. Hospitalist Physical - Physical exam Narrative exam: Intubated and on mechanical ventilation. The patient appeared well nourished and normally developed. Vital signs as documented. Head exam is unremarkable. No scleral icterus . Neck is without jugular venous distension, thyromegaly, or carotid bruits. Lungs are clear to auscultation. Cardiac exam reveals regular rate and Rhythm. First and second heart sounds normal. No murmurs, rubs or gallops. Abdominal exam reveals normal bowel sounds, no masses, no organomegaly and no aortic enlargement. Extremities significant for bilateral leg ulcer around the calf area with offensive discharge. 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 - Constitutional Vitals: Temp Pulse Resp BP Pulse Ox 97.4 F L 83 17 104/44 99 12/05/16 15:58 12/05/16 15:40 12/05/16 15:40 12/05/16 15:40 12/05/16 15:40 General appearance: Present: no acute distress (intubated, FiO2 60%) Results - Labs CBC & Chem 7: 12/05/16 05:00 12/05/16 05:00 Labs: Laboratory Last Values WBC 17.1 K/mm3 (4.5-11.0) H 12/05/16 05:00 RBC 3.03 M/mm3 (3.65-5.03) L 12/05/16 05:00 Hgb 8.2 gm/dl (11.8-15.2) L 12/05/16 05:00 Hct 25.9 % (35.5-45.6) L 12/05/16 05:00 MCV 86 fl (84-94) 12/05/16 05:00 MCH 27 pg (28-32) L 12/05/16 05:00 MCHC 32 % (32-34) 12/05/16 05:00 RDW 16.4 % (13.2-15.2) H 12/05/16 05:00 Plt Count 81 K/mm3 (140-440) L 12/05/16 05:00 Lymph % (Auto) 1.3 % (13.4-35.0) L 12/05/16 05:00 [place] % (Auto) 9.7 % (0.0-7.3) H 12/05/16 05:00 Eos % (Auto) 0.0 % (0.0-4.3) 12/05/16 05:00 Baso % (Auto) 0.1 % (0.0-1.8) 12/05/16 05:00 Lymph # 0.2 K/mm3 (1.2-5.4) L 12/05/16 05:00 [place] # 1.7 K/mm3 (0.0-0.8) H 12/05/16 05:00 Eos # 0.0 K/mm3 (0.0-0.4) 12/05/16 05:00 Baso # 0.0 K/mm3 (0.0-0.1) 12/05/16 05:00 Add Manual Diff Complete 12/04/16 06:00 Total Counted 100 12/04/16 06:00 Seg Neutrophils % 88.9 % (40.0-70.0) H 12/05/16 05:00 Seg Neuts % (Manual) 80.0 % (40.0-70.0) H 12/04/16 06:00 Band Neutrophils % 7.0 % 12/04/16 06:00 Lymphocytes % (Manual) 7.0 % (13.4-35.0) L 12/04/16 06:00 Reactive Lymphs % (Man) 0 % 12/04/16 06:00 Monocytes % (Manual) 6.0 % (0.0-7.3) 12/04/16 06:00 Eosinophils % (Manual) 0 % (0.0-4.3) 12/04/16 06:00 Basophils % (Manual) 0 % (0.0-1.8) 12/04/16 06:00 Metamyelocytes % 0 % 12/04/16 06:00 Myelocytes % 0 % 12/04/16 06:00 Promyelocytes % 0 % 12/04/16 06:00 Blast Cells % 0 % 12/04/16 06:00 Nucleated RBC % Not Reportable 12/04/16 06:00 Seg Neutrophils # 15.2 K/mm3 (1.8-7.7) H 12/05/16 05:00 Seg Neutrophils # Man 14.2 K/mm3 (1.8-7.7) H 12/04/16 06:00 Band Neutrophils # 1.2 K/mm3 12/04/16 06:00 Lymphocytes # (Manual) 1.2 K/mm3 (1.2-5.4) 12/04/16 06:00 Abs React Lymphs (Man) 0.0 K/mm3 12/04/16 06:00 Monocytes # (Manual) 1.1 K/mm3 (0.0-0.8) H 12/04/16 06:00 Eosinophils # (Manual) 0.0 K/mm3 (0.0-0.4) 12/04/16 06:00 Basophils # (Manual) 0.0 K/mm3 (0.0-0.1) 12/04/16 06:00 Metamyelocytes # 0.0 K/mm3 12/04/16 06:00 Myelocytes # 0.0 K/mm3 12/04/16 06:00 Promyelocytes # 0.0 K/mm3 12/04/16 06:00 Blast Cells # 0.0 K/mm3 12/04/16 06:00 WBC Morphology Not Reportable 12/04/16 06:00 Hypersegmented Neuts Not Reportable 12/04/16 06:00 Hyposegmented Neuts Not Reportable 12/04/16 06:00 Hypogranular Neuts Not Reportable 12/04/16 06:00 Smudge Cells Not Reportable 12/04/16 06:00 Toxic Granulation Not Reportable 12/04/16 06:00 Toxic Vacuolation Not Reportable 12/04/16 06:00 Dohle Bodies Not Reportable 12/04/16 06:00 Pelger-Huet Anomaly Not Reportable 12/04/16 06:00 Demetra Rods Not Reportable 12/04/16 06:00 Platelet Estimate Consistent w auto 12/04/16 06:00 Clumped Platelets Not Reportable 12/04/16 06:00 Plt Clumps, EDTA Not Reportable 12/04/16 06:00 Large Platelets Not Reportable 12/04/16 06:00 Giant Platelets Not Reportable 12/04/16 06:00 Platelet Satelliting Not Reportable 12/04/16 06:00 Plt Morphology Comment Not Reportable 12/04/16 06:00 RBC Morphology Not Reportable 12/04/16 06:00 Dimorphic RBCs Not Reportable 12/04/16 06:00 Polychromasia 1+ 12/04/16 06:00 Hypochromasia Not Reportable 12/04/16 06:00 Poikilocytosis 1+ 12/04/16 06:00 Anisocytosis 1+ 12/04/16 06:00 Microcytosis Not Reportable 12/04/16 06:00 Macrocytosis Not Reportable 12/04/16 06:00 Spherocytes Not Reportable 12/04/16 06:00 Pappenheimer Bodies Not Reportable 12/04/16 06:00 Sickle Cells Not Reportable 12/04/16 06:00 Target Cells Rare 12/04/16 06:00 Tear Drop Cells Not Reportable 12/04/16 06:00 Ovalocytes Not Reportable 12/04/16 06:00 Helmet Cells Not Reportable 12/04/16 06:00 [place] Bodies Not Reportable 12/04/16 06:00 [place] Rings Not Reportable 12/04/16 06:00 [place] Cells Not Reportable 12/04/16 06:00 Bite Cells Not Reportable 12/04/16 06:00 Crenated Cell Not Reportable 12/04/16 06:00 Elliptocytes Rare 12/04/16 06:00 Acanthocytes (Spur) Not Reportable 12/04/16 06:00 Rouleaux Not Reportable 12/04/16 06:00 Hemoglobin C Crystals Not Reportable 12/04/16 06:00 Schistocytes Few 12/04/16 06:00 Malaria parasites Not Reportable 12/04/16 06:00 [place] Bodies Not Reportable 12/04/16 06:00 Hem Pathologist Commnt No 12/04/16 06:00 PT 16.6 Sec. (12.2-14.9) H 12/02/16 19:20 INR 1.27 (0.87-1.13) H 12/02/16 19:20 APTT 45.4 Sec. (24.2-36.6) H 12/02/16 19:20 Heparin Anti-Xa Level < 0.10 U.I./ml (0.3-0.7) L 12/03/16 01:15 POC ABG pH 7.373 (7.35-7.45) 12/05/16 06:00 POC ABG pCO2 32.5 (35-45) L 12/05/16 06:00 POC ABG pO2 124 (80-105) H 12/05/16 06:00 POC ABG HCO3 18.9 12/05/16 06:00 POC ABG Total CO2 20 12/05/16 06:00 POC ABG O2 Sat 99 12/05/16 06:00 POC ABG Base Excess -6 12/05/16 06:00 FiO2 30 % 12/05/16 06:00 Sodium 132 mmol/L (137-145) L 12/05/16 05:00 Potassium 4.7 mmol/L (3.6-5.0) 12/05/16 05:00 Chloride 96.9 mmol/L (98-107) L 12/05/16 05:00 Carbon Dioxide 19 mmol/L (22-30) L 12/05/16 05:00 Anion Gap 21 mmol/L 12/05/16 05:00 BUN 120 mg/dL (9-20) H 12/05/16 05:00 Creatinine 4.8 mg/dL (0.8-1.5) H 12/05/16 05:00 Estimated GFR 15 ml/min 12/05/16 05:00 BUN/Creatinine Ratio 25.00 % 12/05/16 05:00 Glucose 193 mg/dL (75-100) H 12/05/16 05:00 POC Glucose 229 (70-105) H 12/05/16 05:17 Hemoglobin A1c 10.6 % (4-6) H 11/28/16 16:02 Lactic Acid 2.60 mmol/L (0.7-2.0) H* 12/04/16 13:22 Calcium 8.0 mg/dL (8.4-10.2) L 12/05/16 05:00 Total Bilirubin 2.70 mg/dL (0.1-1.2) H 12/02/16 19:23 AST 36 units/L (5-40) 12/02/16 19:23 ALT 30 units/L (7-56) 12/02/16 19:23 Alkaline Phosphatase 111 units/L (35-129) 12/02/16 19:23 Total Creatine Kinase 59 units/L (55-170) 12/02/16 19:23 CK-MB (CK-2) 1.9 ng/mL (0.0-4.0) 12/02/16 19:23 CK-MB (CK-2) Rel Index 3.2 (0-4) 12/02/16 19:23 Troponin T 0.098 ng/mL (0.00-0.029) H 12/03/16 08:01 Total Protein 6.0 g/dL (6.3-8.2) L 12/02/16 19:23 Albumin 2.7 g/dL (3.9-5) L 12/02/16 19:23 Albumin/Globulin Ratio 0.8 % 12/02/16 19:23 Triglycerides 72 mg/dL (2-149) 11/30/16 20:37 Cholesterol 132 mg/dL (50-199) 11/30/16 20:37 LDL Cholesterol Direct 82 mg/dL (50-130) 11/30/16 20:37 HDL Cholesterol 36 mg/dL (40-59) L 11/30/16 20:37 Cholesterol/HDL Ratio 3.66 % 11/30/16 20:37 Urine Color Yellow (Yellow) 11/30/16 10:00 Urine Turbidity Clear (Clear) 11/30/16 10:00 Urine pH 6.0 (5.0-7.0) 11/30/16 10:00 Ur Specific [place] 1.018 (1.003-1.030) 11/30/16 10:00 Urine Protein 30 mg/dl mg/dL (Negative) 11/30/16 10:00 Urine Glucose (UA) Neg mg/dL (Negative) 11/30/16 10:00 Urine Ketones Neg mg/dL (Negative) 11/30/16 10:00 Urine Blood Neg (Negative) 11/30/16 10:00 Urine Nitrite Neg (Negative) 11/30/16 10:00 Urine Bilirubin Neg (Negative) 11/30/16 10:00 Urine Urobilinogen < 2.0 mg/dL (<2.0) 11/30/16 10:00 Ur Leukocyte Esterase Tr (Negative) 11/30/16 10:00 Urine WBC (Auto) 2.0 /HPF (0.0-6.0) 11/30/16 10:00 Urine RBC (Auto) < 1.0 /HPF (0.0-6.0) 11/30/16 10:00 U Epithel Cells (Auto) < 1.0 /HPF (0-13.0) 11/30/16 10:00 Urine Eosinophils None seen (None Seen) 11/30/16 10:00 Urine Creatinine 78.6 mg/dL (0.1-20.0) H 11/30/16 10:00 Urine Sodium 10 mEq/L 11/30/16 10:00 Vancomycin Trough 19.0 ug/mL (5.0-20.0) 12/03/16 06:04 Random Vancomycin 24.7 ug/mL (0-40.0) 12/05/16 05:00
[2016-12-05] MEDS: ROCEPHIN/NS 1 GM/50 ML 1 GM/50 ML BAG IV SCH (17:46)
[2016-12-06] MEDS: DAKIN'S HALF STRENGTH TP SCH ×3 (02:00→21:49)
[2016-12-06 06:04] LABS: ISTAT Base Excess -6; ISTAT HCO3 18.8; ISTAT PCO2 30.3 (35-45); ISTAT PO2 122 (80-105); ISTAT SO2 99; ISTAT TCO2 20
[2016-12-06 06:43] LABS: Hematocrit 23.4 % (35.5-45.6); Hemoglobin 7.7 gm/dl (11.8-15.2); Mean Corpuscular HGB Conc 33 % (32-34); Mean Corpuscular Hemoglobin 28 pg (28-32); Mean Corpuscular Volume 85 fl (84-94); Red Blood Count 2.76 M/mm3 (3.65-5.03); Red Cell Distribution Width 16.6 % (13.2-15.2); White Blood Count 18.1 K/mm3 (4.5-11.0)
[2016-12-06 06:45] LABS: Platelet Count 62 K/mm3 (140-440)
[2016-12-06 06:59] LABS: Chloride 96.8 mmol/L (98-107); Potassium 4.5 mmol/L (3.6-5.0)
[2016-12-06] MEDS: NOVOLOG SUB-Q SCH ×5 (07:00→21:50)
[2016-12-06 07:08] LABS: BUN/Creatinine Ratio 23.87
--- NOTE | 2016-12-06 08:19 | Progress Note ---
Assessment and Plan - Patient Problems (1) Wound infection Current Visit: Yes Status: Chronic Plan to address problem: Continue Rocephin at current dose to complete 10-14 days of therapy (through December 09, 2016). Continue applying topical antibiotic with each dressing change until wounds close. I will sign off. Please call again if there are additional questions or concerns. Subjective Date of service: 12/06/16 Principal diagnosis: bilateral leg wounds; TREMAINE Interval history: Remains in ICU. Afebrile. No new events. Objective - Exam Narrative Exam: intubated, FiO2 30% - Constitutional Vitals: Vital Signs Temp Pulse Resp BP Pulse Ox 97.4 F L 77 19 114/62 100 12/06/16 04:29 12/06/16 08:09 12/06/16 06:30 12/06/16 08:09 12/06/16 08:09 Temperature -Last 24 Hours Temperature 97.4 F Temperature 97.6 F Temperature 97.5 F Temperature 97.4 F Temperature 97.4 F General appearance: Present: no acute distress - EENT ENT: other (ET tube) - Respiratory Respiratory: bilateral: rhonchi, negative: rales, wheezing - Cardiovascular Rhythm: regular Heart Sounds: Present: S1 & S2 Extremities: No edema, abnormal (clean based lateral leg wounds bilaterally, much improved odor) - Gastrointestinal General gastrointestinal: Present: soft, non-distended - Integumentary Integumentary: no jaundice, no rash - Neurologic Neurologic: no focal deficits - Labs CBC & Chem 7: 12/06/16 06:00 12/06/16 06:00 Labs: Abnormal lab results 12/05/16 12/05/16 12/05/16 Range/Units 11:46 17:53 23:24 WBC (4.5-11.0) K/mm3 RBC (3.65-5.03) M/mm3 Hgb (11.8-15.2) gm/dl Hct (35.5-45.6) % RDW (13.2-15.2) % Plt Count (140-440) K/mm3 POC ABG pCO2 (35-45) POC ABG pO2 (80-105) Sodium (137-145) mmol/L Chloride (98-107) mmol/L Carbon Dioxide (22-30) mmol/L BUN (9-20) mg/dL Creatinine (0.8-1.5) mg/dL Glucose (75-100) mg/dL POC Glucose 139 H 170 H 153 H (70-105) Calcium (8.4-10.2) mg/dL 12/06/16 12/06/16 12/06/16 Range/Units 04:20 05:57 06:00 WBC 18.1 H (4.5-11.0) K/mm3 RBC 2.76 L (3.65-5.03) M/mm3 Hgb 7.7 L (11.8-15.2) gm/dl Hct 23.4 L (35.5-45.6) % RDW 16.6 H (13.2-15.2) % Plt Count 62 L (140-440) K/mm3 POC ABG pCO2 30.3 L (35-45) POC ABG pO2 122 H (80-105) Sodium (137-145) mmol/L Chloride (98-107) mmol/L Carbon Dioxide (22-30) mmol/L BUN (9-20) mg/dL Creatinine (0.8-1.5) mg/dL Glucose (75-100) mg/dL POC Glucose 166 H (70-105) Calcium (8.4-10.2) mg/dL 12/06/16 Range/Units 06:00 WBC (4.5-11.0) K/mm3 RBC (3.65-5.03) M/mm3 Hgb (11.8-15.2) gm/dl Hct (35.5-45.6) % RDW (13.2-15.2) % Plt Count (140-440) K/mm3 POC ABG pCO2 (35-45) POC ABG pO2 (80-105) Sodium 134 L (137-145) mmol/L Chloride 96.8 L (98-107) mmol/L Carbon Dioxide 19 L (22-30) mmol/L BUN 117 H (9-20) mg/dL Creatinine 4.9 H (0.8-1.5) mg/dL Glucose 179 H (75-100) mg/dL POC Glucose (70-105) Calcium 8.0 L (8.4-10.2) mg/dL - Imaging and cardiology Chest x-ray: report reviewed (clear lungs, unchanged since prior radiograph)
[2016-12-06 08:23] LABS: Basophils % (Manual) 0 % (0.0-1.8); Blastocytes % (Manual) 0 %; Eosinophils % (Manual) 0 % (0.0-4.3); Target Cells 1+
[2016-12-06 08:24] LABS: Polychromasia Rare
[2016-12-06 08:25] LABS: Diff Status Complete; Platelet Estimate Appears Decreased; Schistocytes Few
[2016-12-06] MEDS: TRIPLE ANTIBIOTIC TP SCH (09:25)
[2016-12-06] MEDS: PEPCID PO SCH (09:25)
--- NOTE | 2016-12-06 09:44 | Progress Note ---
Subjective Principal diagnosis: bilateral leg wounds; TREMAINE Interval history: Patient was seen today for follow-up and multiple renal-related issues Patient remains ventilator dependent hemodynamically little better today According to nurses he does follow commands at times Events of 24 hours vitals labs intake output medications were reviewed Social history: Reviewed Family history: Reviewed Allergies: Reviewed Physical examination Vitals reviewed HEENT: Mild pallor no icterus Neck: Supple no JVD Chest: Clear to auscultation Heart: Regular rate and rhythm Abdomen soft nontender no renal bruit no CVA tenderness Extremity: Mild edema dry skin Assessment and plan Acute kidney injury patient likely has acute tubular necrosis appears to be severe Patient may need renal replacement therapy depending on how the primary team feels about this Would like to discuss with pulmonary critical care physician We have been adequately educated his yesterday about the renal-related issues Creatinine appears to have stabilized but urine output is not there Would like to discuss with primary team if patient is going to benefit from renal replacement therapy We'll continue to follow and make recommendation from renal standpoint Objective - Vital Signs Vital signs: Vital Signs - 12hr 12/05/16 12/05/16 12/05/16 21:45 22:00 22:15 Temperature Pulse Rate 86 88 90 Pulse Rate [ From Monitor] Respiratory 18 15 21 Rate Blood Pressure 111/60 92/58 92/58 O2 Sat by Pulse 100 99 100 Oximetry 12/05/16 12/05/16 12/05/16 22:30 22:45 23:00 Temperature Pulse Rate 87 87 83 Pulse Rate [ From Monitor] Respiratory 18 18 17 Rate Blood Pressure 102/55 102/55 110/58 O2 Sat by Pulse 100 100 100 Oximetry 12/05/16 12/05/16 12/05/16 23:09 23:15 23:30 Temperature Pulse Rate 83 87 84 Pulse Rate [ From Monitor] Respiratory 18 22 21 Rate Blood Pressure 110/58 110/58 99/52 O2 Sat by Pulse 100 99 100 Oximetry 12/05/16 12/05/16 12/06/16 23:45 23:50 00:00 Temperature Pulse Rate 86 86 Pulse Rate [ 84 From Monitor] Respiratory 13 13 18 Rate Blood Pressure 99/52 99/52 O2 Sat by Pulse 100 100 100 Oximetry 12/06/16 12/06/16 12/06/16 00:01 00:13 00:15 Temperature 97.6 F Pulse Rate 82 80 Pulse Rate [ From Monitor] Respiratory 11 L 16 Rate Blood Pressure 96/62 96/62 O2 Sat by Pulse 100 100 Oximetry 12/06/16 12/06/16 12/06/16 00:30 00:45 01:00 Temperature Pulse Rate 83 83 88 Pulse Rate [ From Monitor] Respiratory 18 19 12 Rate Blood Pressure 110/58 110/58 117/57 O2 Sat by Pulse 100 100 100 Oximetry 12/06/16 12/06/16 12/06/16 01:15 01:31 01:45 Temperature Pulse Rate 85 90 88 Pulse Rate [ From Monitor] Respiratory 21 17 28 H Rate Blood Pressure 117/57 106/63 106/63 O2 Sat by Pulse 100 100 95 Oximetry 12/06/16 12/06/16 12/06/16 02:00 02:15 02:31 Temperature Pulse Rate 86 86 88 Pulse Rate [ From Monitor] Respiratory 18 18 26 H Rate Blood Pressure 118/58 118/58 122/45 O2 Sat by Pulse 100 100 100 Oximetry 12/06/16 12/06/16 12/06/16 02:45 03:00 03:15 Temperature Pulse Rate 83 90 102 H Pulse Rate [ From Monitor] Respiratory 19 23 25 H Rate Blood Pressure 122/45 116/56 116/56 O2 Sat by Pulse 100 97 100 Oximetry 12/06/16 12/06/16 12/06/16 03:31 03:45 03:57 Temperature Pulse Rate 87 87 86 Pulse Rate [ From Monitor] Respiratory 21 18 Rate Blood Pressure 118/61 118/61 118/61 O2 Sat by Pulse 100 100 100 Oximetry 12/06/16 12/06/16 12/06/16 04:00 04:15 04:29 Temperature 97.4 F L Pulse Rate 88 84 Pulse Rate [ 84 From Monitor] Respiratory 18 13 Rate Blood Pressure 105/58 105/58 O2 Sat by Pulse 100 100 Oximetry 12/06/16 12/06/16 12/06/16 04:30 04:45 05:00 Temperature Pulse Rate 85 83 83 Pulse Rate [ From Monitor] Respiratory 17 15 13 Rate Blood Pressure 113/47 113/47 106/58 O2 Sat by Pulse 100 100 100 Oximetry 12/06/16 12/06/16 12/06/16 05:15 05:31 05:45 Temperature Pulse Rate 83 84 73 Pulse Rate [ From Monitor] Respiratory 12 16 15 Rate Blood Pressure 113/47 115/72 106/58 O2 Sat by Pulse 100 100 100 Oximetry 12/06/16 12/06/16 12/06/16 06:00 06:15 06:30 Temperature Pulse Rate 83 83 83 Pulse Rate [ From Monitor] Respiratory 14 17 19 Rate Blood Pressure 106/65 106/65 112/58 O2 Sat by Pulse 100 100 100 Oximetry 12/06/16 12/06/16 08:00 08:09 Temperature 97.6 F Pulse Rate 77 Pulse Rate [ From Monitor] Respiratory Rate Blood Pressure 114/62 O2 Sat by Pulse 100 Oximetry - Lab 12/07/16 05:40 12/07/16 05:40 Most recent lab results Calcium 8.0 mg/dL (8.4-10.2) L 12/06/16 06:00 Urine Creatinine 78.6 mg/dL (0.1-20.0) H 11/30/16 10:00 Urine Sodium 10 mEq/L 11/30/16 10:00
--- NOTE | 2016-12-06 10:00 | XRay Report ---
AP CHEST: HISTORY: Acute respiratory failure The endotracheal tube remains in good position. A feeding tube has been inserted since yesterday's exam. Cardiomegaly is stable. The lungs are clear. No evidence for pneumonia, pleural effusion or pneumothorax. Pacemaker device is unchanged. IMPRESSION: Cardiomegaly. Lungs clear. No change since yesterday's exam.
--- NOTE | 2016-12-06 10:34 | Progress Note ---
Assessment and Plan Cont present cardiac regimen. Interrogate AICD ([place]). The patient has been seen in conjunction with Dr. Fowler who agrees with the assessment and plan of care. - Patient Problems (1) Hx-sudden cardiac arrest Current Visit: Yes Status: Acute (2) Abnormal EKG Current Visit: Yes Status: Acute (3) Bilateral leg ulcer Current Visit: Yes Status: Chronic Qualifiers: Non-pressure ulcer stage: N (4) Chest pain Current Visit: Yes Status: Chronic Qualifiers: Chest pain type: C Ischemic chest pain type: I (5) Shortness of breath Current Visit: Yes Status: Chronic (6) Wound infection Current Visit: Yes Status: Chronic (7) Acute on chronic renal failure Current Visit: No Status: Acute Qualifiers: Acute renal failure type: A Chronic kidney disease stage: C (8) Acute on chronic systolic heart failure Current Visit: No Status: Acute (9) COPD exacerbation Current Visit: No Status: Acute (10) Dehydration Current Visit: No Status: Acute (11) CAD (coronary artery disease) Current Visit: No Status: Chronic Qualifiers: Coronary Disease-Associated Artery/Lesion type: C [place] vs. transplanted heart: N Associated angina: A (12) Diabetes Current Visit: No Status: Chronic Qualifiers: Diabetes mellitus type: D Diabetes mellitus complication status: D Diabetes mellitus complication detail: D Diabetic retinopathy severity: D Proliferative retinopathy type: P Diabetes mellitus macular edema: D Diabetes mellitus extermination supervisor insulin use: D Laterality: L Chronic kidney disease stage: C (13) Hx of CABG Current Visit: No Status: Chronic (14) Ischemic cardiomyopathy Current Visit: No Status: Chronic (15) PAD (peripheral artery disease) Current Visit: No Status: Chronic (16) S/P implantation of automatic cardioverter/defibrillator (AICD) Current Visit: No Status: Chronic (17) Mitral regurgitation Current Visit: Yes Status: Chronic Qualifiers: Cardiac valve disease etiology: C (18) Tricuspid valve regurgitation Current Visit: Yes Status: Chronic Qualifiers: Cardiac valve disease etiology: C (19) Pulmonary hypertension Current Visit: Yes Status: Chronic Subjective Date of service: 12/06/16 Principal diagnosis: bilateral leg wounds; TREMAINE Interval history: Pt resting in bed, off sedation and responding intermittently to commands. Remains intubated. Weaned off levophed this AM with currently stable BPs. No family at bedside. Objective Last Vital Signs Temp 97.6 F 12/06/16 08:00 Pulse 84 12/06/16 10:15 Resp 20 12/06/16 10:15 BP 114/58 12/06/16 10:15 Pulse Ox 100 12/06/16 10:15 - Physical Examination General: Other ( Intubated, Mild response to commands) HEENT: Positive: Normocephaly, Mucus Membranes Moist, Other (Pupils: reacting to light.) Neck: Positive: neck supple, trachea midline Cardiac: Positive: Reg Rate and Rhythm, S1/S2 Lungs: Positive: clear to auscultation, Ventilated Respirations Neuro: Positive: Other (Arousable, Minimal response to commands.) Abdomen: Positive: Soft, Active Bowel Sounds Skin: Positive: Clear, Other (Multiple ulcers in the legs - Dressing in situ.). Negative: Rash Musculoskeletal: other (Dressing in situ (multiple ulcers in the legs).) Extremities: Present: +2 Edema. Absent: lower extr. pulses - Labs and Meds CBC 12/06/16 Range/Units 06:00 WBC 18.1 H (4.5-11.0) K/mm3 RBC 2.76 L (3.65-5.03) M/mm3 Hgb 7.7 L (11.8-15.2) gm/dl Hct 23.4 L (35.5-45.6) % Plt Count 62 L (140-440) K/mm3 Comprehensive Metabolic Panel 12/06/16 Range/Units 06:00 Sodium 134 L (137-145) mmol/L Potassium 4.5 (3.6-5.0) mmol/L Chloride 96.8 L (98-107) mmol/L Carbon Dioxide 19 L (22-30) mmol/L BUN 117 H (9-20) mg/dL Creatinine 4.9 H (0.8-1.5) mg/dL Glucose 179 H (75-100) mg/dL Calcium 8.0 L (8.4-10.2) mg/dL - Imaging and Cardiology EKG: report reviewed, image reviewed Echo: report reviewed, image reviewed - Telemetry EKG Rhythm: Paced
--- NOTE | 2016-12-06 13:33 | Progress Note ---
Assessment and Plan Assessment and plan: Gertrude was admitted to the floor for the management of bilateral leg ulcer while there the patient had difficulty of breathing while eating and then he went to asystole and He was successfully resuscitated then transfer to the ICU. Sean has VF while he was resuscitated and He was shocked one times. Asystole, Respiratory failure secondary to chocking and aspiration - S/P in house hospital cardiac arrest - Intubated on mechanical ventilation - Continue IV Rocephin Lactic acidosis - on sodium bicarbonate and IV fluids Bilateral DM leg ulcer - sensitivity is back and sensitive to ceftriaxone. DM - Sliding scale insulin Acute on chronic kidney disease - patient may need dialyis The high probability of a clinically significant, sudden or life threatening deterioration of the [neurology, CV, repiratory] system(s) required my full and direct attention, intervention and personal management. The aggregate critical care time was [31] minutes. This time is in addition to time spent performing reported procedures but includes the following: [x] Data Review and interpretation [x] Patient assessment and monitoring of vital signs [x] Documentation [x] Medication orders and management Hypertension CAD Chronic systolic heart failure - Patient is on Unasyn and vancomycin, ID consult appreciated - Doppler ultrasound of the legs is normal - Pulmonary consult appreciated - Nephrology consult appreciated DVT prophylaxis - Heparin Disposition Continue ICU care History Interval history: Patient was seen and evaluated this morning, he intubated and on mechanical ventilation. Hospitalist Physical - Physical exam Narrative exam: Intubated and on mechanical ventilation. The patient appeared well nourished and normally developed. Vital signs as documented. Head exam is unremarkable. No scleral icterus . Neck is without jugular venous distension, thyromegaly, or carotid bruits. Lungs are clear to auscultation. Cardiac exam reveals regular rate and Rhythm. First and second heart sounds normal. No murmurs, rubs or gallops. Abdominal exam reveals normal bowel sounds, no masses, no organomegaly and no aortic enlargement. Extremities significant for bilateral leg ulcer around the calf area with offensive discharge. 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 - Constitutional Vitals: Temp Pulse Resp BP Pulse Ox 97.4 F L 87 17 102/57 100 12/06/16 12:00 12/06/16 13:00 12/06/16 13:00 12/06/16 13:00 12/06/16 13:00 General appearance: Present: no acute distress (intubated, FiO2 60%) Results - Labs CBC & Chem 7: 12/06/16 06:00 12/06/16 06:00 Labs: Laboratory Last Values WBC 18.1 K/mm3 (4.5-11.0) H 12/06/16 06:00 RBC 2.76 M/mm3 (3.65-5.03) L 12/06/16 06:00 Hgb 7.7 gm/dl (11.8-15.2) L 12/06/16 06:00 Hct 23.4 % (35.5-45.6) L 12/06/16 06:00 MCV 85 fl (84-94) 12/06/16 06:00 MCH 28 pg (28-32) 12/06/16 06:00 MCHC 33 % (32-34) 12/06/16 06:00 RDW 16.6 % (13.2-15.2) H 12/06/16 06:00 Plt Count 62 K/mm3 (140-440) L 12/06/16 06:00 Lymph % (Auto) 1.3 % (13.4-35.0) L 12/05/16 05:00 [place] % (Auto) 9.7 % (0.0-7.3) H 12/05/16 05:00 Eos % (Auto) 0.0 % (0.0-4.3) 12/05/16 05:00 Baso % (Auto) 0.1 % (0.0-1.8) 12/05/16 05:00 Lymph # 0.2 K/mm3 (1.2-5.4) L 12/05/16 05:00 [place] # 1.7 K/mm3 (0.0-0.8) H 12/05/16 05:00 Eos # 0.0 K/mm3 (0.0-0.4) 12/05/16 05:00 Baso # 0.0 K/mm3 (0.0-0.1) 12/05/16 05:00 Add Manual Diff Complete 12/06/16 06:00 Total Counted 100 12/06/16 06:00 Seg Neutrophils % [place] Fitter 12/06/16 06:00 Seg Neuts % (Manual) 96.0 % (40.0-70.0) H 12/06/16 06:00 Band Neutrophils % 0 % 12/06/16 06:00 Lymphocytes % (Manual) 0 % (13.4-35.0) L 12/06/16 06:00 Reactive Lymphs % (Man) 0 % 12/06/16 06:00 Monocytes % (Manual) 4.0 % (0.0-7.3) 12/06/16 06:00 Eosinophils % (Manual) 0 % (0.0-4.3) 12/06/16 06:00 Basophils % (Manual) 0 % (0.0-1.8) 12/06/16 06:00 Metamyelocytes % 0 % 12/06/16 06:00 Myelocytes % 0 % 12/06/16 06:00 Promyelocytes % 0 % 12/06/16 06:00 Blast Cells % 0 % 12/06/16 06:00 Nucleated RBC % Not Reportable 12/06/16 06:00 Seg Neutrophils # 15.2 K/mm3 (1.8-7.7) H 12/05/16 05:00 Seg Neutrophils # Man 17.4 K/mm3 (1.8-7.7) H 12/06/16 06:00 Band Neutrophils # 0.0 K/mm3 12/06/16 06:00 Lymphocytes # (Manual) 0.0 K/mm3 (1.2-5.4) L 12/06/16 06:00 Abs React Lymphs (Man) 0.0 K/mm3 12/06/16 06:00 Monocytes # (Manual) 0.7 K/mm3 (0.0-0.8) 12/06/16 06:00 Eosinophils # (Manual) 0.0 K/mm3 (0.0-0.4) 12/06/16 06:00 Basophils # (Manual) 0.0 K/mm3 (0.0-0.1) 12/06/16 06:00 Metamyelocytes # 0.0 K/mm3 12/06/16 06:00 Myelocytes # 0.0 K/mm3 12/06/16 06:00 Promyelocytes # 0.0 K/mm3 12/06/16 06:00 Blast Cells # 0.0 K/mm3 12/06/16 06:00 WBC Morphology Not Reportable 12/06/16 06:00 Hypersegmented Neuts Not Reportable 12/06/16 06:00 Hyposegmented Neuts Not Reportable 12/06/16 06:00 Hypogranular Neuts Not Reportable 12/06/16 06:00 Smudge Cells Not Reportable 12/06/16 06:00 Toxic Granulation Not Reportable 12/06/16 06:00 Toxic Vacuolation Not Reportable 12/06/16 06:00 Dohle Bodies Not Reportable 12/06/16 06:00 Pelger-Huet Anomaly Not Reportable 12/06/16 06:00 Demetra Rods Not Reportable 12/06/16 06:00 Platelet Estimate Appears decreased 12/06/16 06:00 Clumped Platelets Not Reportable 12/06/16 06:00 Plt Clumps, EDTA Not Reportable 12/06/16 06:00 Large Platelets Not Reportable 12/06/16 06:00 Giant Platelets Not Reportable 12/06/16 06:00 Platelet Satelliting Not Reportable 12/06/16 06:00 Plt Morphology Comment Not Reportable 12/06/16 06:00 RBC Morphology Not Reportable 12/06/16 06:00 Dimorphic RBCs Not Reportable 12/06/16 06:00 Polychromasia Rare 12/06/16 06:00 Hypochromasia Not Reportable 12/06/16 06:00 Poikilocytosis Not Reportable 12/06/16 06:00 Anisocytosis Not Reportable 12/06/16 06:00 Microcytosis Not Reportable 12/06/16 06:00 Macrocytosis Not Reportable 12/06/16 06:00 Spherocytes Not Reportable 12/06/16 06:00 Pappenheimer Bodies Not Reportable 12/06/16 06:00 Sickle Cells Not Reportable 12/06/16 06:00 Target Cells 1+ 12/06/16 06:00 Tear Drop Cells Not Reportable 12/06/16 06:00 Ovalocytes Not Reportable 12/06/16 06:00 Helmet Cells Not Reportable 12/06/16 06:00 Don-Sunflower Bodies Not Reportable 12/06/16 06:00 [place] Rings Not Reportable 12/06/16 06:00 [place] Cells Not Reportable 12/06/16 06:00 Bite Cells Not Reportable 12/06/16 06:00 Crenated Cell Not Reportable 12/06/16 06:00 Elliptocytes Not Reportable 12/06/16 06:00 Acanthocytes (Spur) Not Reportable 12/06/16 06:00 Rouleaux Not Reportable 12/06/16 06:00 Hemoglobin C Crystals Not Reportable 12/06/16 06:00 Schistocytes Few 12/06/16 06:00 Malaria parasites Not Reportable 12/06/16 06:00 [place]o Bodies Not Reportable 12/06/16 06:00 Hem Pathologist Commnt No 12/06/16 06:00 PT 16.6 Sec. (12.2-14.9) H 12/02/16 19:20 INR 1.27 (0.87-1.13) H 12/02/16 19:20 APTT 45.4 Sec. (24.2-36.6) H 12/02/16 19:20 Heparin Anti-Xa Level < 0.10 U.I./ml (0.3-0.7) L 12/03/16 01:15 POC ABG pH 7.400 (7.35-7.45) 12/06/16 04:20 POC ABG pCO2 30.3 (35-45) L 12/06/16 04:20 POC ABG pO2 122 (80-105) H 12/06/16 04:20 POC ABG HCO3 18.8 12/06/16 04:20 POC ABG Total CO2 20 12/06/16 04:20 POC ABG O2 Sat 99 12/06/16 04:20 POC ABG Base Excess -6 12/06/16 04:20 FiO2 30 % 12/06/16 04:20 Sodium 134 mmol/L (137-145) L 12/06/16 06:00 Potassium 4.5 mmol/L (3.6-5.0) 12/06/16 06:00 Chloride 96.8 mmol/L (98-107) L 12/06/16 06:00 Carbon Dioxide 19 mmol/L (22-30) L 12/06/16 06:00 Anion Gap 23 mmol/L 12/06/16 06:00 BUN 117 mg/dL (9-20) H 12/06/16 06:00 Creatinine 4.9 mg/dL (0.8-1.5) H 12/06/16 06:00 Estimated GFR 14 ml/min 12/06/16 06:00 BUN/Creatinine Ratio 23.87 % 12/06/16 06:00 Glucose 179 mg/dL (75-100) H 12/06/16 06:00 POC Glucose 204 (70-105) H 12/06/16 11:33 Hemoglobin A1c 10.6 % (4-6) H 11/28/16 16:02 Lactic Acid 2.60 mmol/L (0.7-2.0) H* 12/04/16 13:22 Calcium 8.0 mg/dL (8.4-10.2) L 12/06/16 06:00 Total Bilirubin 2.70 mg/dL (0.1-1.2) H 12/02/16 19:23 AST 36 units/L (5-40) 12/02/16 19:23 ALT 30 units/L (7-56) 12/02/16 19:23 Alkaline Phosphatase 111 units/L (35-129) 12/02/16 19:23 Total Creatine Kinase 59 units/L (55-170) 12/02/16 19:23 CK-MB (CK-2) 1.9 ng/mL (0.0-4.0) 12/02/16 19:23 CK-MB (CK-2) Rel Index 3.2 (0-4) 12/02/16 19:23 Troponin T 0.098 ng/mL (0.00-0.029) H 12/03/16 08:01 Total Protein 6.0 g/dL (6.3-8.2) L 12/02/16 19:23 Albumin 2.7 g/dL (3.9-5) L 12/02/16 19:23 Albumin/Globulin Ratio 0.8 % 12/02/16 19:23 Triglycerides 72 mg/dL (2-149) 11/30/16 20:37 Cholesterol 132 mg/dL (50-199) 11/30/16 20:37 LDL Cholesterol Direct 82 mg/dL (50-130) 11/30/16 20:37 HDL Cholesterol 36 mg/dL (40-59) L 11/30/16 20:37 Cholesterol/HDL Ratio 3.66 % 11/30/16 20:37 Urine Color Yellow (Yellow) 11/30/16 10:00 Urine Turbidity Clear (Clear) 11/30/16 10:00 Urine pH 6.0 (5.0-7.0) 11/30/16 10:00 Ur Specific [place] 1.018 (1.003-1.030) 11/30/16 10:00 Urine Protein 30 mg/dl mg/dL (Negative) 11/30/16 10:00 Urine Glucose (UA) Neg mg/dL (Negative) 11/30/16 10:00 Urine Ketones Neg mg/dL (Negative) 11/30/16 10:00 Urine Blood Neg (Negative) 11/30/16 10:00 Urine Nitrite Neg (Negative) 11/30/16 10:00 Urine Bilirubin Neg (Negative) 11/30/16 10:00 Urine Urobilinogen < 2.0 mg/dL (<2.0) 11/30/16 10:00 Ur Leukocyte Esterase Tr (Negative) 11/30/16 10:00 Urine WBC (Auto) 2.0 /HPF (0.0-6.0) 11/30/16 10:00 Urine RBC (Auto) < 1.0 /HPF (0.0-6.0) 11/30/16 10:00 U Epithel Cells (Auto) < 1.0 /HPF (0-13.0) 11/30/16 10:00 Urine Eosinophils None seen (None Seen) 11/30/16 10:00 Urine Creatinine 78.6 mg/dL (0.1-20.0) H 11/30/16 10:00 Urine Sodium 10 mEq/L 11/30/16 10:00 Vancomycin Trough 19.0 ug/mL (5.0-20.0) 12/03/16 06:04 Random Vancomycin 24.7 ug/mL (0-40.0) 12/05/16 05:00
--- NOTE | 2016-12-06 14:45 | Progress Note ---
Assessment and Plan Cardiac arrest Acute respiratory failure on ventilator support Congestive heart failure P. pacemaker Sepsis Infected ulcers Recommendations Continue antibiotics. Off sedation SBT trial in am f/u cardiology evaluation comments Critical care time was 31 minutes [id number] evaluation and coordination of care Subjective Date of service: 12/06/16 Principal diagnosis: respiratory failure, cardiac arrest bilateral leg wounds; TREMAINE Interval history: Intubated and sedated. non Verbal Objective Vital Signs - 12hr 12/06/16 12/06/16 12/06/16 02:45 03:00 03:15 Temperature Pulse Rate 83 90 102 H Pulse Rate [ From Monitor] Respiratory 19 23 25 H Rate Blood Pressure 122/45 116/56 116/56 O2 Sat by Pulse 100 97 100 Oximetry 12/06/16 12/06/16 12/06/16 03:31 03:45 03:57 Temperature Pulse Rate 87 87 86 Pulse Rate [ From Monitor] Respiratory 21 18 Rate Blood Pressure 118/61 118/61 118/61 O2 Sat by Pulse 100 100 100 Oximetry 12/06/16 12/06/16 12/06/16 04:00 04:15 04:29 Temperature 97.4 F L Pulse Rate 88 84 Pulse Rate [ 84 From Monitor] Respiratory 18 13 Rate Blood Pressure 105/58 105/58 O2 Sat by Pulse 100 100 Oximetry 12/06/16 12/06/16 12/06/16 04:30 04:45 05:00 Temperature Pulse Rate 85 83 83 Pulse Rate [ From Monitor] Respiratory 17 15 13 Rate Blood Pressure 113/47 113/47 106/58 O2 Sat by Pulse 100 100 100 Oximetry 12/06/16 12/06/16 12/06/16 05:15 05:31 05:45 Temperature Pulse Rate 83 84 73 Pulse Rate [ From Monitor] Respiratory 12 16 15 Rate Blood Pressure 113/47 115/72 106/58 O2 Sat by Pulse 100 100 100 Oximetry 12/06/16 12/06/16 12/06/16 06:00 06:15 06:30 Temperature Pulse Rate 83 83 83 Pulse Rate [ From Monitor] Respiratory 14 17 19 Rate Blood Pressure 106/65 106/65 112/58 O2 Sat by Pulse 100 100 100 Oximetry 12/06/16 12/06/16 12/06/16 06:45 07:01 07:15 Temperature Pulse Rate 85 86 85 Pulse Rate [ From Monitor] Respiratory 12 17 18 Rate Blood Pressure 112/58 108/59 108/59 O2 Sat by Pulse 100 100 100 Oximetry 12/06/16 12/06/16 12/06/16 07:30 07:45 08:00 Temperature 97.6 F Pulse Rate 85 83 83 Pulse Rate [ From Monitor] Respiratory 16 11 L 16 Rate Blood Pressure 110/53 110/53 114/62 O2 Sat by Pulse 100 100 100 Oximetry 12/06/16 12/06/16 12/06/16 08:09 08:15 08:30 Temperature Pulse Rate 77 83 87 Pulse Rate [ From Monitor] Respiratory 15 13 Rate Blood Pressure 114/62 107/57 106/53 O2 Sat by Pulse 100 100 100 Oximetry 12/06/16 12/06/16 12/06/16 08:45 09:01 09:15 Temperature Pulse Rate 88 88 91 H Pulse Rate [ From Monitor] Respiratory 14 18 16 Rate Blood Pressure 110/63 100/57 108/46 O2 Sat by Pulse 100 100 Oximetry 12/06/16 12/06/16 12/06/16 09:30 09:45 10:00 Temperature Pulse Rate 87 82 89 Pulse Rate [ From Monitor] Respiratory 15 17 21 Rate Blood Pressure 114/53 116/59 108/61 O2 Sat by Pulse 100 100 Oximetry 12/06/16 12/06/16 12/06/16 10:15 10:30 10:45 Temperature Pulse Rate 84 87 85 Pulse Rate [ From Monitor] Respiratory 20 17 14 Rate Blood Pressure 114/58 106/59 109/55 O2 Sat by Pulse 100 100 100 Oximetry 12/06/16 12/06/16 12/06/16 11:00 11:15 11:23 Temperature Pulse Rate 83 85 83 Pulse Rate [ From Monitor] Respiratory 16 16 Rate Blood Pressure 111/60 114/65 114/65 O2 Sat by Pulse 100 100 Oximetry 12/06/16 12/06/16 12/06/16 11:30 11:45 12:00 Temperature 97.4 F L Pulse Rate 80 80 85 Pulse Rate [ From Monitor] Respiratory 15 15 13 Rate Blood Pressure 116/57 113/59 108/55 O2 Sat by Pulse 100 100 100 Oximetry 12/06/16 12/06/16 12/06/16 12:15 12:30 12:45 Temperature Pulse Rate 83 83 91 H Pulse Rate [ From Monitor] Respiratory 13 15 17 Rate Blood Pressure 110/58 108/54 100/52 O2 Sat by Pulse 100 100 100 Oximetry 12/06/16 13:00 Temperature Pulse Rate 87 Pulse Rate [ From Monitor] Respiratory 17 Rate Blood Pressure 102/57 O2 Sat by Pulse 100 Oximetry Constitutional: comatose, appears uncomfortable Eyes: other (currently rolled back into his head) ENT: other (orally intubated) Neck: supple, no JVD Ascultation: Bilateral: rales (anteriorly), rhonchi Percussion: Bilateral: not dull Cardiovascular: other (pacemaker rhythm) Gastrointestinal: normoactive bowel sounds, soft Extremities: no edema, cool Neurologic: unable to assess (RA SS -3) CBC and BMP: 12/06/16 06:00 12/06/16 06:00 ABG, PT/INR, D-dimer: ABG POC ABG pH 7.400 (7.35-7.45) 12/06/16 04:20 POC ABG pCO2 30.3 (35-45) L 12/06/16 04:20 POC ABG pO2 122 (80-105) H 12/06/16 04:20 POC ABG HCO3 18.8 12/06/16 04:20 POC ABG Total CO2 20 12/06/16 04:20 POC ABG O2 Sat 99 12/06/16 04:20 PT/INR, D-dimer PT 16.6 Sec. (12.2-14.9) H 12/02/16 19:20 INR 1.27 (0.87-1.13) H 12/02/16 19:20 Abnormal lab findings: Abnormal Labs 11/28/16 11/28/16 11/28/16 14:16 16:02 16:02 WBC RBC Hgb Hct MCH MCHC RDW Plt Count Lymph % (Auto) [place] % (Auto) Lymph # [place] # Seg Neutrophils % Seg Neuts % (Manual) Lymphocytes % (Manual) Monocytes % (Manual) Seg Neutrophils # Seg Neutrophils # Man Lymphocytes # (Manual) Monocytes # (Manual) PT 17.3 H INR 1.42 H APTT 38.0 H Heparin Anti-Xa Level POC ABG pH POC ABG pCO2 POC ABG pO2 Sodium Potassium 3.3 L Chloride 96.0 L Carbon Dioxide BUN 100 H Creatinine 3.4 H Glucose 235 H POC Glucose 500 H Hemoglobin A1c Lactic Acid Calcium Total Bilirubin Troponin T Total Protein Albumin HDL Cholesterol Urine Creatinine 06/19/17 06/19/17 06/20/17 16:02 21:30 05:50 WBC RBC Hgb Hct MCH MCHC RDW Plt Count Lymph % (Auto) [place] % (Auto) Lymph # [place] # Seg Neutrophils % Seg Neuts % (Manual) Lymphocytes % (Manual) Monocytes % (Manual) Seg Neutrophils # Seg Neutrophils # Man Lymphocytes # (Manual) Monocytes # (Manual) PT INR APTT Heparin Anti-Xa Level POC ABG pH POC ABG pCO2 POC ABG pO2 Sodium Potassium Chloride Carbon Dioxide BUN Creatinine Glucose POC Glucose 68 L 40 L Hemoglobin A1c 10.6 H Lactic Acid Calcium Total Bilirubin Troponin T Total Protein Albumin HDL Cholesterol Urine Creatinine 11/29/16 11/29/16 11/29/16 06:33 08:37 08:37 WBC RBC Hgb 10.2 L Hct 30.9 L MCH MCHC RDW 16.0 H Plt Count 104 L Lymph % (Auto) 2.4 L [place] % (Auto) 8.5 H Lymph # 0.2 L [place] # 0.9 H Seg Neutrophils % 89.0 H Seg Neuts % (Manual) Lymphocytes % (Manual) Monocytes % (Manual) Seg Neutrophils # 9.2 H Seg Neutrophils # Man Lymphocytes # (Manual) Monocytes # (Manual) PT INR APTT Heparin Anti-Xa Level POC ABG pH POC ABG pCO2 POC ABG pO2 Sodium Potassium Chloride Carbon Dioxide BUN 95 H Creatinine 2.9 H Glucose POC Glucose 57 L Hemoglobin A1c Lactic Acid Calcium Total Bilirubin Troponin T Total Protein Albumin HDL Cholesterol Urine Creatinine 11/29/16 11/29/16 11/29/16 11:41 12:48 15:44 WBC RBC Hgb Hct MCH MCHC RDW Plt Count Lymph % (Auto) [place] % (Auto) Lymph # [place] # Seg Neutrophils % Seg Neuts % (Manual) Lymphocytes % (Manual) Monocytes % (Manual) Seg Neutrophils # Seg Neutrophils # Man Lymphocytes # (Manual) Monocytes # (Manual) PT INR APTT Heparin Anti-Xa Level POC ABG pH POC ABG pCO2 POC ABG pO2 Sodium Potassium Chloride Carbon Dioxide BUN Creatinine Glucose POC Glucose 48 L 143 H 138 H Hemoglobin A1c Lactic Acid Calcium Total Bilirubin Troponin T Total Protein Albumin HDL Cholesterol Urine Creatinine 11/29/16 11/29/16 11/30/16 21:04 22:26 06:11 WBC RBC Hgb Hct MCH MCHC RDW Plt Count Lymph % (Auto) [place] % (Auto) Lymph # [place] # Seg Neutrophils % Seg Neuts % (Manual) Lymphocytes % (Manual) Monocytes % (Manual) Seg Neutrophils # Seg Neutrophils # Man Lymphocytes # (Manual) Monocytes # (Manual) PT INR APTT Heparin Anti-Xa Level POC ABG pH POC ABG pCO2 POC ABG pO2 Sodium Potassium Chloride Carbon Dioxide BUN Creatinine Glucose POC Glucose 49 L 165 H 121 H Hemoglobin A1c Lactic Acid Calcium Total Bilirubin Troponin T Total Protein Albumin HDL Cholesterol Urine Creatinine 11/30/16 11/30/16 11/30/16 08:53 08:53 10:00 WBC RBC Hgb 10.9 L Hct 33.2 L MCH MCHC RDW 16.3 H Plt Count 96 L Lymph % (Auto) [place] % (Auto) Lymph # [place] # Seg Neutrophils % Seg Neuts % (Manual) 91.0 H Lymphocytes % (Manual) 2.0 L Monocytes % (Manual) Seg Neutrophils # Seg Neutrophils # Man 9.3 H Lymphocytes # (Manual) 0.2 L Monocytes # (Manual) PT INR APTT Heparin Anti-Xa Level POC ABG pH POC ABG pCO2 POC ABG pO2 Sodium Potassium Chloride Carbon Dioxide BUN 78 H Creatinine 2.3 H Glucose 139 H POC Glucose Hemoglobin A1c Lactic Acid Calcium 8.3 L Total Bilirubin Troponin T Total Protein Albumin HDL Cholesterol Urine Creatinine 78.6 H 11/30/16 11/30/16 11/30/16 11:23 17:43 20:23 WBC RBC Hgb Hct MCH MCHC RDW Plt Count Lymph % (Auto) [place] % (Auto) Lymph # [place] # Seg Neutrophils % Seg Neuts % (Manual) Lymphocytes % (Manual) Monocytes % (Manual) Seg Neutrophils # Seg Neutrophils # Man Lymphocytes # (Manual) Monocytes # (Manual) PT INR APTT Heparin Anti-Xa Level POC ABG pH POC ABG pCO2 POC ABG pO2 Sodium Potassium Chloride Carbon Dioxide BUN Creatinine Glucose POC Glucose 169 H 57 L 69 L Hemoglobin A1c Lactic Acid Calcium Total Bilirubin Troponin T Total Protein Albumin HDL Cholesterol Urine Creatinine 11/30/16 11/30/16 12/01/16 20:37 22:12 07:39 WBC 12.9 H RBC Hgb 10.9 L Hct 33.2 L MCH MCHC RDW 16.6 H Plt Count 94 L Lymph % (Auto) [place] % (Auto) Lymph # [place] # Seg Neutrophils % Seg Neuts % (Manual) 98.0 H Lymphocytes % (Manual) 0 L Monocytes % (Manual) Seg Neutrophils # Seg Neutrophils # Man 12.6 H Lymphocytes # (Manual) 0.0 L Monocytes # (Manual) PT INR APTT Heparin Anti-Xa Level POC ABG pH POC ABG pCO2 POC ABG pO2 Sodium Potassium Chloride Carbon Dioxide BUN Creatinine Glucose POC Glucose 107 H Hemoglobin A1c Lactic Acid Calcium Total Bilirubin Troponin T 0.033 H Total Protein Albumin HDL Cholesterol 36 L Urine Creatinine 12/01/16 12/01/16 12/01/16 07:39 11:48 17:02 WBC RBC Hgb Hct MCH MCHC RDW Plt Count Lymph % (Auto) [place] % (Auto) Lymph # [place] # Seg Neutrophils % Seg Neuts % (Manual) Lymphocytes % (Manual) Monocytes % (Manual) Seg Neutrophils # Seg Neutrophils # Man Lymphocytes # (Manual) Monocytes # (Manual) PT INR APTT Heparin Anti-Xa Level POC ABG pH POC ABG pCO2 POC ABG pO2 Sodium Potassium Chloride Carbon Dioxide BUN 71 H Creatinine 2.1 H Glucose POC Glucose 193 H 170 H Hemoglobin A1c Lactic Acid Calcium 8.1 L Total Bilirubin Troponin T Total Protein Albumin HDL Cholesterol Urine Creatinine 12/01/16 12/02/16 12/02/16 21:17 06:05 06:34 WBC RBC Hgb Hct MCH MCHC RDW Plt Count Lymph % (Auto) [place] % (Auto) Lymph # [place] # Seg Neutrophils % Seg Neuts % (Manual) Lymphocytes % (Manual) Monocytes % (Manual) Seg Neutrophils # Seg Neutrophils # Man Lymphocytes # (Manual) Monocytes # (Manual) PT INR APTT Heparin Anti-Xa Level POC ABG pH POC ABG pCO2 POC ABG pO2 Sodium Potassium Chloride Carbon Dioxide BUN Creatinine Glucose POC Glucose 156 H < 40 L 141 H Hemoglobin A1c Lactic Acid Calcium Total Bilirubin Troponin T Total Protein Albumin HDL Cholesterol Urine Creatinine 12/02/16 12/02/16 12/02/16 06:41 07:48 07:48 WBC RBC Hgb 10.2 L Hct 31.4 L MCH 27 L MCHC RDW 16.3 H Plt Count 89 L Lymph % (Auto) [place] % (Auto) Lymph # [place] # Seg Neutrophils % Seg Neuts % (Manual) 87.0 H Lymphocytes % (Manual) 7.0 L Monocytes % (Manual) Seg Neutrophils # Seg Neutrophils # Man 8.9 H Lymphocytes # (Manual) 0.7 L Monocytes # (Manual) PT INR APTT Heparin Anti-Xa Level POC ABG pH POC ABG pCO2 POC ABG pO2 Sodium 136 L Potassium Chloride Carbon Dioxide BUN 75 H Creatinine 2.7 H Glucose POC Glucose 124 H Hemoglobin A1c Lactic Acid Calcium 7.9 L Total Bilirubin Troponin T Total Protein Albumin HDL Cholesterol Urine Creatinine 12/02/16 12/02/16 12/02/16 12:22 18:02 19:20 WBC RBC Hgb Hct MCH MCHC RDW Plt Count Lymph % (Auto) [place] % (Auto) Lymph # [place] # Seg Neutrophils % Seg Neuts % (Manual) Lymphocytes % (Manual) Monocytes % (Manual) Seg Neutrophils # Seg Neutrophils # Man Lymphocytes # (Manual) Monocytes # (Manual) PT 16.6 H INR 1.27 H APTT 45.4 H Heparin Anti-Xa Level POC ABG pH POC ABG pCO2 POC ABG pO2 Sodium Potassium Chloride Carbon Dioxide BUN Creatinine Glucose POC Glucose < 40 L 53 L Hemoglobin A1c Lactic Acid Calcium Total Bilirubin Troponin T Total Protein Albumin HDL Cholesterol Urine Creatinine 12/02/16 12/02/16 12/02/16 19:23 19:23 19:39 WBC 13.8 H RBC Hgb 10.9 L Hct 34.6 L MCH 27 L MCHC 31 L RDW 16.2 H Plt Count 106 L Lymph % (Auto) [place] % (Auto) Lymph # [place] # Seg Neutrophils % Seg Neuts % (Manual) 86.0 H Lymphocytes % (Manual) 4.0 L Monocytes % (Manual) Seg Neutrophils # Seg Neutrophils # Man 11.9 H Lymphocytes # (Manual) 0.6 L Monocytes # (Manual) 1.0 H PT INR APTT Heparin Anti-Xa Level POC ABG pH POC ABG pCO2 POC ABG pO2 Sodium Potassium Chloride 95.8 L Carbon Dioxide BUN 75 H Creatinine 2.8 H Glucose 105 H POC Glucose 141 H Hemoglobin A1c Lactic Acid Calcium 7.8 L Total Bilirubin 2.70 H Troponin T Total Protein 6.0 L Albumin 2.7 L HDL Cholesterol Urine Creatinine 12/02/16 12/03/16 12/03/16 21:14 01:15 04:15 WBC RBC Hgb Hct MCH MCHC RDW Plt Count Lymph % (Auto) [place] % (Auto) Lymph # [place] # Seg Neutrophils % Seg Neuts % (Manual) Lymphocytes % (Manual) Monocytes % (Manual) Seg Neutrophils # Seg Neutrophils # Man Lymphocytes # (Manual) Monocytes # (Manual) PT INR APTT Heparin Anti-Xa Level < 0.10 L POC ABG pH 7.214 L POC ABG pCO2 54.0 H POC ABG pO2 227 H 72 L Sodium Potassium Chloride Carbon Dioxide BUN Creatinine Glucose POC Glucose Hemoglobin A1c Lactic Acid Calcium Total Bilirubin Troponin T Total Protein Albumin HDL Cholesterol Urine Creatinine 12/03/16 12/03/16 12/03/16 05:15 06:04 06:04 WBC 45.9 H* RBC Hgb 10.5 L Hct 32.9 L MCH 27 L MCHC RDW 16.6 H Plt Count 101 L Lymph % (Auto) [place] % (Auto) Lymph # [place] # Seg Neutrophils % Seg Neuts % (Manual) Lymphocytes % (Manual) 8.0 L Monocytes % (Manual) 8.0 H Seg Neutrophils # Seg Neutrophils # Man 31.2 H Lymphocytes # (Manual) Monocytes # (Manual) 3.7 H PT INR APTT Heparin Anti-Xa Level POC ABG pH POC ABG pCO2 POC ABG pO2 Sodium 128 L D Potassium 6.8 H* D Chloride 94.2 L Carbon Dioxide 17 L BUN 77 H Creatinine 2.6 H Glucose POC Glucose 50 L Hemoglobin A1c Lactic Acid Calcium 7.6 L Total Bilirubin Troponin T Total Protein Albumin HDL Cholesterol Urine Creatinine 12/03/16 12/03/16 12/03/16 06:51 08:01 08:13 WBC RBC Hgb Hct MCH MCHC RDW Plt Count Lymph % (Auto) [place] % (Auto) Lymph # [place] # Seg Neutrophils % Seg Neuts % (Manual) Lymphocytes % (Manual) Monocytes % (Manual) Seg Neutrophils # Seg Neutrophils # Man Lymphocytes # (Manual) Monocytes # (Manual) PT INR APTT Heparin Anti-Xa Level POC ABG pH POC ABG pCO2 POC ABG pO2 Sodium Potassium Chloride Carbon Dioxide BUN Creatinine Glucose POC Glucose 118 H 107 H Hemoglobin A1c Lactic Acid Calcium Total Bilirubin Troponin T 0.098 H Total Protein Albumin HDL Cholesterol Urine Creatinine 12/03/16 12/03/16 12/03/16 09:44 12:19 16:39 WBC RBC Hgb Hct MCH MCHC RDW Plt Count Lymph % (Auto) [place] % (Auto) Lymph # [place] # Seg Neutrophils % Seg Neuts % (Manual) Lymphocytes % (Manual) Monocytes % (Manual) Seg Neutrophils # Seg Neutrophils # Man Lymphocytes # (Manual) Monocytes # (Manual) PT INR APTT Heparin Anti-Xa Level POC ABG pH POC ABG pCO2 POC ABG pO2 Sodium Potassium Chloride Carbon Dioxide BUN Creatinine Glucose POC Glucose 115 H Hemoglobin A1c Lactic Acid 3.40 H* 3.10 H* Calcium Total Bilirubin Troponin T Total Protein Albumin HDL Cholesterol Urine Creatinine 12/03/16 12/03/16 12/03/16 17:49 20:15 23:34 WBC 18.9 H RBC 3.04 L Hgb 8.4 L Hct 26.2 L MCH MCHC RDW 16.6 H Plt Count 81 L Lymph % (Auto) [place] % (Auto) Lymph # [place] # Seg Neutrophils % Seg Neuts % (Manual) 94.0 H Lymphocytes % (Manual) 1.0 L Monocytes % (Manual) Seg Neutrophils # Seg Neutrophils # Man 17.8 H Lymphocytes # (Manual) 0.2 L Monocytes # (Manual) PT INR APTT Heparin Anti-Xa Level POC ABG pH POC ABG pCO2 POC ABG pO2 Sodium Potassium Chloride Carbon Dioxide BUN Creatinine Glucose POC Glucose 151 H 188 H Hemoglobin A1c Lactic Acid Calcium Total Bilirubin Troponin T Total Protein Albumin HDL Cholesterol Urine Creatinine 12/03/16 12/03/16 12/04/16 Unknown Unknown 04:57 WBC 22.2 H RBC 3.16 L Hgb 8.6 L Hct 27.3 L MCH 27 L MCHC 31 L RDW 16.9 H Plt Count 81 L Lymph % (Auto) [place] % (Auto) Lymph # [place] # Seg Neutrophils % Seg Neuts % (Manual) Lymphocytes % (Manual) Monocytes % (Manual) Seg Neutrophils # Seg Neutrophils # Man Lymphocytes # (Manual) Monocytes # (Manual) PT INR APTT Heparin Anti-Xa Level POC ABG pH 7.277 L POC ABG pCO2 POC ABG pO2 198 H Sodium 132 L Potassium Chloride 95.8 L Carbon Dioxide 19 L BUN 93 H Creatinine 3.4 H Glucose 130 H POC Glucose Hemoglobin A1c Lactic Acid Calcium 7.4 L Total Bilirubin Troponin T Total Protein Albumin HDL Cholesterol Urine Creatinine 12/04/16 12/04/16 12/04/16 05:45 06:00 06:00 WBC 17.8 H RBC 3.07 L Hgb 8.7 L Hct 26.1 L MCH MCHC RDW 16.5 H Plt Count 93 L Lymph % (Auto) [place] % (Auto) Lymph # [place] # Seg Neutrophils % Seg Neuts % (Manual) 80.0 H Lymphocytes % (Manual) 7.0 L Monocytes % (Manual) Seg Neutrophils # Seg Neutrophils # Man 14.2 H Lymphocytes # (Manual) Monocytes # (Manual) 1.1 H PT INR APTT Heparin Anti-Xa Level POC ABG pH POC ABG pCO2 POC ABG pO2 Sodium 133 L Potassium Chloride 96.0 L Carbon Dioxide 18 L BUN 103 H Creatinine 3.6 H Glucose 190 H POC Glucose 186 H Hemoglobin A1c Lactic Acid Calcium 7.7 L Total Bilirubin Troponin T Total Protein Albumin HDL Cholesterol Urine Creatinine 12/04/16 12/04/16 12/04/16 07:23 11:50 13:22 WBC RBC Hgb Hct MCH MCHC RDW Plt Count Lymph % (Auto) [place] % (Auto) Lymph # [place] # Seg Neutrophils % Seg Neuts % (Manual) Lymphocytes % (Manual) Monocytes % (Manual) Seg Neutrophils # Seg Neutrophils # Man Lymphocytes # (Manual) Monocytes # (Manual) PT INR APTT Heparin Anti-Xa Level POC ABG pH POC ABG pCO2 POC ABG pO2 Sodium Potassium Chloride Carbon Dioxide BUN Creatinine Glucose POC Glucose 187 H 190 H Hemoglobin A1c Lactic Acid 2.60 H* Calcium Total Bilirubin Troponin T Total Protein Albumin HDL Cholesterol Urine Creatinine 12/04/16 12/04/16 12/05/16 17:46 23:33 05:00 WBC 17.1 H RBC 3.03 L Hgb 8.2 L Hct 25.9 L MCH 27 L MCHC RDW 16.4 H Plt Count 81 L Lymph % (Auto) 1.3 L [place] % (Auto) 9.7 H Lymph # 0.2 L [place] # 1.7 H Seg Neutrophils % 88.9 H Seg Neuts % (Manual) Lymphocytes % (Manual) Monocytes % (Manual) Seg Neutrophils # 15.2 H Seg Neutrophils # Man Lymphocytes # (Manual) Monocytes # (Manual) PT INR APTT Heparin Anti-Xa Level POC ABG pH POC ABG pCO2 POC ABG pO2 Sodium Potassium Chloride Carbon Dioxide BUN Creatinine Glucose POC Glucose 264 H 263 H Hemoglobin A1c Lactic Acid Calcium Total Bilirubin Troponin T Total Protein Albumin HDL Cholesterol Urine Creatinine 12/05/16 12/05/16 12/05/16 05:00 05:17 06:00 WBC RBC Hgb Hct MCH MCHC RDW Plt Count Lymph % (Auto) [place] % (Auto) Lymph # [place] # Seg Neutrophils % Seg Neuts % (Manual) Lymphocytes % (Manual) Monocytes % (Manual) Seg Neutrophils # Seg Neutrophils # Man Lymphocytes # (Manual) Monocytes # (Manual) PT INR APTT Heparin Anti-Xa Level POC ABG pH POC ABG pCO2 32.5 L POC ABG pO2 124 H Sodium 132 L Potassium Chloride 96.9 L Carbon Dioxide 19 L BUN 120 H Creatinine 4.8 H Glucose 193 H POC Glucose 229 H Hemoglobin A1c Lactic Acid Calcium 8.0 L Total Bilirubin Troponin T Total Protein Albumin HDL Cholesterol Urine Creatinine 12/05/16 12/05/16 12/05/16 11:46 17:53 23:24 WBC RBC Hgb Hct MCH MCHC RDW Plt Count Lymph % (Auto) [place] % (Auto) Lymph # [place] # Seg Neutrophils % Seg Neuts % (Manual) Lymphocytes % (Manual) Monocytes % (Manual) Seg Neutrophils # Seg Neutrophils # Man Lymphocytes # (Manual) Monocytes # (Manual) PT INR APTT Heparin Anti-Xa Level POC ABG pH POC ABG pCO2 POC ABG pO2 Sodium Potassium Chloride Carbon Dioxide BUN Creatinine Glucose POC Glucose 139 H 170 H 153 H Hemoglobin A1c Lactic Acid Calcium Total Bilirubin Troponin T Total Protein Albumin HDL Cholesterol Urine Creatinine 12/06/16 12/06/16 12/06/16 04:20 05:57 06:00 WBC 18.1 H RBC 2.76 L Hgb 7.7 L Hct 23.4 L MCH MCHC RDW 16.6 H Plt Count 62 L Lymph % (Auto) [place] % (Auto) Lymph # [place] # Seg Neutrophils % Seg Neuts % (Manual) 96.0 H Lymphocytes % (Manual) 0 L Monocytes % (Manual) Seg Neutrophils # Seg Neutrophils # Man 17.4 H Lymphocytes # (Manual) 0.0 L Monocytes # (Manual) PT INR APTT Heparin Anti-Xa Level POC ABG pH POC ABG pCO2 30.3 L POC ABG pO2 122 H Sodium Potassium Chloride Carbon Dioxide BUN Creatinine Glucose POC Glucose 166 H Hemoglobin A1c Lactic Acid Calcium Total Bilirubin Troponin T Total Protein Albumin HDL Cholesterol Urine Creatinine 12/06/16 12/06/16 12/06/16 06:00 11:32 11:33 WBC RBC Hgb Hct MCH MCHC RDW Plt Count Lymph % (Auto) [place] % (Auto) Lymph # [place] # Seg Neutrophils % Seg Neuts % (Manual) Lymphocytes % (Manual) Monocytes % (Manual) Seg Neutrophils # Seg Neutrophils # Man Lymphocytes # (Manual) Monocytes # (Manual) PT INR APTT Heparin Anti-Xa Level POC ABG pH POC ABG pCO2 POC ABG pO2 Sodium 134 L Potassium Chloride 96.8 L Carbon Dioxide 19 L BUN 117 H Creatinine 4.9 H Glucose 179 H POC Glucose 300 H 204 H Hemoglobin A1c Lactic Acid Calcium 8.0 L Total Bilirubin Troponin T Total Protein Albumin HDL Cholesterol Urine Creatinine
[2016-12-06] MEDS: ATIVAN IV PRN ×2 (15:33)
[2016-12-06] MEDS: ROCEPHIN/NS 1 GM/50 ML 1 GM/50 ML BAG IV SCH (17:41)
[2016-12-06] MEDS: HEPARIN SUB-Q SCH (21:51)
[2016-12-06] MEDS ORDERED: NACL 0.45% 1000 ML 1,000 ML with SODIUM BICARBONATE 75 MEQ IV SCH (22:00)
[2016-12-07] MEDS: NOVOLOG SUB-Q SCH ×4 (00:52→17:39)
[2016-12-07 05:03] LABS: ISTAT Base Excess -4; ISTAT HCO3 20.2; ISTAT PCO2 31.3 (35-45); ISTAT PH 7.417 (7.35-7.45); ISTAT PO2 96 (80-105); ISTAT SO2 98; ISTAT TCO2 21
[2016-12-07 06:28] LABS: Hematocrit 22.6 % (35.5-45.6); Hemoglobin 7.4 gm/dl (11.8-15.2); Mean Corpuscular HGB Conc 33 % (32-34); Mean Corpuscular Hemoglobin 27 pg (28-32); Mean Corpuscular Volume 83 fl (84-94); Red Blood Count 2.71 M/mm3 (3.65-5.03); Red Cell Distribution Width 16.2 % (13.2-15.2); White Blood Count 15.6 K/mm3 (4.5-11.0)
[2016-12-07 06:40] LABS: Platelet Count 61 K/mm3 (140-440)
[2016-12-07 06:43] LABS: Calcium 7.9 mg/dL (8.4-10.2); Potassium 4.2 mmol/L (3.6-5.0)
[2016-12-07 06:56] LABS: BUN/Creatinine Ratio 23.92
--- NOTE | 2016-12-07 07:36 | Vascular Lab Report ---
LOWER EXTREMITY VENOUS DUPLEX: REASON FOR EXAM: Swelling and ulcers of bilateral lower extremities. COMMENTS ON THE RIGHT: All veins visualized are freely compressible without evidence of internal echogenicity. Flow is spontaneous and phasic throughout. COMMENTS ON THE LEFT: All veins visualized are freely compressible without evidence of internal echogenicity. Flow is spontaneous and phasic throughout. IMPRESSION: No evidence of acute or chronic deep venous thrombosis in either lower extremity.
--- NOTE | 2016-12-07 07:42 | XRay Report ---
Single view chest: Compared to 12/06/16. History: Acute respiratory failure. Findings: Cardiomegaly. Stable support system. Mild pulmonary venous congestion. No consolidation or pleural effusion. Impression: Marked cardiomegaly with mild pulmonary venous congestion.
[2016-12-07 08:41] LABS: Basophils % (Manual) 0 % (0.0-1.8); Blastocytes % (Manual) 0 %; Eosinophils % (Manual) 0 % (0.0-4.3)
[2016-12-07 08:47] LABS: Anisocytosis 1+; Platelet Estimate Consistent w Auto; Target Cells 1+
[2016-12-07 08:48] LABS: Diff Status Complete
--- NOTE | 2016-12-07 08:58 | Progress Note ---
Assessment and Plan Assessment and plan: --Sudden cardiopulmonary arrest status post CPR per ACLS protocol --Anoxic encephalopathy, closely monitor supportive care, neurology evaluation CT head without contrast, consider MRI, EEG --Acute hypoxic respiratory failure; on mechanical ventilation more than 96 hours Nebulizers, IV steroids, IV antibiotics, ventilatory support Pulmonary following --Status post AICD; interrogation underlying rhythm A. fib if rectal No V. fib ,VT or asystole, cardiology following --Ischemic cardiomyopathy, ejection fraction of 15-20% Cardiology following, continue current antiseizure medications --Acute on chronic kidney disease v; nephrology considering hemodialysis Continue current management --Acute anemia; multifactorial, heme-positive stool as well as anemia due to acute renal failure Closely monitor H&H, transfuse 2 units of PRBC if hemoglobin is less than 7, consult GI --Thrombocytopenia, closely monitor, no evidence of acute bleeding However patient has heme positive stool and anemia --Leukocytosis, secondary to sepsis, continue IV antibiotics Trending down, significantly improved from 45K to 15K, closely monitor --Sepsis secondary to polymicrobial wound infection Continue current antibiotics, follow cultures, ID following --DVT prophylaxis; SCDs No pharmacologic anticoagulation in view of anemia Patient full CODE STATUS Family not available at the bedside Very poor prognosis, will discuss plan of care with the family when available Patient's condition treatment plan discussed in detail with the patient's nurse as well as the case management Critical care time 35 minutes History Interval history: Patient seen and evaluated in the ICU this morning medical records reviewed Patient remains intubated on ventilatory support and sedated Off pressors, Mild drop in H&H to 7.4 Patient is comfortable [place] signs reviewed Hospitalist Physical - Constitutional Vitals: Temp Pulse Resp BP Pulse Ox 98.5 F 90 16 116/69 100 12/07/16 07:59 12/07/16 08:13 12/07/16 07:15 12/07/16 08:13 12/07/16 08:13 General appearance: Present: no acute distress, other (orally intubated on ventilatory support and sedated) - EENT Eyes: Present: PERRL, EOM intact - Neck Neck: Present: supple, other (ET tube and Dobbhoff in place) - Respiratory Respiratory effort: normal Respiratory: bilateral: diminished, rhonchi (occasional), negative: rales, wheezing - Cardiovascular Rhythm: regular Heart Sounds: Present: S1 & S2 - Extremities Extremities: no ischemia, pulses intact, pulses symmetrical - Abdominal General gastrointestinal: soft, non-tender, non-distended, normal bowel sounds - Integumentary Integumentary: Present: clear, warm - Psychiatric Psychiatric: other (intubated and sedated) - Neurologic Neurologic: other (intubated and sedated) Results - Labs CBC & Chem 7: 12/07/16 05:40 12/07/16 05:40 Labs: Laboratory Last Values WBC 15.6 K/mm3 (4.5-11.0) H 12/07/16 05:40 RBC 2.71 M/mm3 (3.65-5.03) L 12/07/16 05:40 Hgb 7.4 gm/dl (11.8-15.2) L 12/07/16 05:40 Hct 22.6 % (35.5-45.6) L 12/07/16 05:40 MCV 83 fl (84-94) L 12/07/16 05:40 MCH 27 pg (28-32) L 12/07/16 05:40 MCHC 33 % (32-34) 12/07/16 05:40 RDW 16.2 % (13.2-15.2) H 12/07/16 05:40 Plt Count 61 K/mm3 (140-440) L 12/07/16 05:40 Lymph % (Auto) 1.3 % (13.4-35.0) L 12/05/16 05:00 [place] % (Auto) 9.7 % (0.0-7.3) H 12/05/16 05:00 Eos % (Auto) 0.0 % (0.0-4.3) 12/05/16 05:00 Baso % (Auto) 0.1 % (0.0-1.8) 12/05/16 05:00 Lymph # 0.2 K/mm3 (1.2-5.4) L 12/05/16 05:00 [place] # 1.7 K/mm3 (0.0-0.8) H 12/05/16 05:00 Eos # 0.0 K/mm3 (0.0-0.4) 12/05/16 05:00 Baso # 0.0 K/mm3 (0.0-0.1) 12/05/16 05:00 Add Manual Diff Complete 12/07/16 05:40 Total Counted 100 12/07/16 05:40 Seg Neutrophils % Filter Cloth Maker 12/07/16 05:40 Seg Neuts % (Manual) 97.0 % (40.0-70.0) H 12/07/16 05:40 Band Neutrophils % 0 % 12/07/16 05:40 Lymphocytes % (Manual) 0 % (13.4-35.0) L 12/07/16 05:40 Reactive Lymphs % (Man) 0 % 12/07/16 05:40 Monocytes % (Manual) 3.0 % (0.0-7.3) 12/07/16 05:40 Eosinophils % (Manual) 0 % (0.0-4.3) 12/07/16 05:40 Basophils % (Manual) 0 % (0.0-1.8) 12/07/16 05:40 Metamyelocytes % 0 % 12/07/16 05:40 Myelocytes % 0 % 12/07/16 05:40 Promyelocytes % 0 % 12/07/16 05:40 Blast Cells % 0 % 12/07/16 05:40 Nucleated RBC % Not Reportable 12/07/16 05:40 Seg Neutrophils # 15.2 K/mm3 (1.8-7.7) H 12/05/16 05:00 Seg Neutrophils # Man 15.1 K/mm3 (1.8-7.7) H 12/07/16 05:40 Band Neutrophils # 0.0 K/mm3 12/07/16 05:40 Lymphocytes # (Manual) 0.0 K/mm3 (1.2-5.4) L 12/07/16 05:40 Abs React Lymphs (Man) 0.0 K/mm3 12/07/16 05:40 Monocytes # (Manual) 0.5 K/mm3 (0.0-0.8) 12/07/16 05:40 Eosinophils # (Manual) 0.0 K/mm3 (0.0-0.4) 12/07/16 05:40 Basophils # (Manual) 0.0 K/mm3 (0.0-0.1) 12/07/16 05:40 Metamyelocytes # 0.0 K/mm3 12/07/16 05:40 Myelocytes # 0.0 K/mm3 12/07/16 05:40 Promyelocytes # 0.0 K/mm3 12/07/16 05:40 Blast Cells # 0.0 K/mm3 12/07/16 05:40 WBC Morphology Not Reportable 12/07/16 05:40 Hypersegmented Neuts Not Reportable 12/07/16 05:40 Hyposegmented Neuts Not Reportable 12/07/16 05:40 Hypogranular Neuts Not Reportable 12/07/16 05:40 Smudge Cells Not Reportable 12/07/16 05:40 Toxic Granulation Not Reportable 12/07/16 05:40 Toxic Vacuolation Not Reportable 12/07/16 05:40 Dohle Bodies Not Reportable 12/07/16 05:40 Pelger-Huet Anomaly Not Reportable 12/07/16 05:40 Demetra Rods Not Reportable 12/07/16 05:40 Platelet Estimate Consistent w auto 12/07/16 05:40 Clumped Platelets Not Reportable 12/07/16 05:40 Plt Clumps, EDTA Not Reportable 12/07/16 05:40 Large Platelets Not Reportable 12/07/16 05:40 Giant Platelets Not Reportable 12/07/16 05:40 Platelet Satelliting Not Reportable 12/07/16 05:40 Plt Morphology Comment Not Reportable 12/07/16 05:40 RBC Morphology Not Reportable 12/07/16 05:40 Dimorphic RBCs Not Reportable 12/07/16 05:40 Polychromasia Not Reportable 12/07/16 05:40 Hypochromasia Not Reportable 12/07/16 05:40 Poikilocytosis Not Reportable 12/07/16 05:40 Anisocytosis 1+ 12/07/16 05:40 Microcytosis Not Reportable 12/07/16 05:40 Macrocytosis Not Reportable 12/07/16 05:40 Spherocytes Not Reportable 12/07/16 05:40 Pappenheimer Bodies Not Reportable 12/07/16 05:40 Sickle Cells Not Reportable 12/07/16 05:40 Target Cells 1+ 12/07/16 05:40 Tear Drop Cells Not Reportable 12/07/16 05:40 Ovalocytes Not Reportable 12/07/16 05:40 Helmet Cells Not Reportable 12/07/16 05:40 [place] Bodies Not Reportable 12/07/16 05:40 [place] Rings Not Reportable 12/07/16 05:40 Genia Cells Not Reportable 12/07/16 05:40 Bite Cells Not Reportable 12/07/16 05:40 Crenated Cell Not Reportable 12/07/16 05:40 Elliptocytes Not Reportable 12/07/16 05:40 Acanthocytes (Spur) Not Reportable 12/07/16 05:40 Rouleaux Not Reportable 12/07/16 05:40 Hemoglobin C Crystals Not Reportable 12/07/16 05:40 Schistocytes Not Reportable 12/07/16 05:40 Malaria parasites Not Reportable 12/07/16 05:40 [place]o Bodies Not Reportable 12/07/16 05:40 Hem Pathologist Commnt No 12/07/16 05:40 PT 16.6 Sec. (12.2-14.9) H 12/02/16 19:20 INR 1.27 (0.87-1.13) H 12/02/16 19:20 APTT 45.4 Sec. (24.2-36.6) H 12/02/16 19:20 Heparin Anti-Xa Level < 0.10 U.I./ml (0.3-0.7) L 12/03/16 01:15 POC ABG pH 7.417 (7.35-7.45) 12/07/16 04:50 POC ABG pCO2 31.3 (35-45) L 12/07/16 04:50 POC ABG pO2 96 (80-105) 12/07/16 04:50 POC ABG HCO3 20.2 12/07/16 04:50 POC ABG Total CO2 21 12/07/16 04:50 POC ABG O2 Sat 98 12/07/16 04:50 POC ABG Base Excess -4 12/07/16 04:50 FiO2 30 % 12/07/16 04:50 Sodium 136 mmol/L (137-145) L 12/07/16 05:40 Potassium 4.2 mmol/L (3.6-5.0) 12/07/16 05:40 Chloride 99.0 mmol/L (98-107) 12/07/16 05:40 Carbon Dioxide 19 mmol/L (22-30) L 12/07/16 05:40 Anion Gap 22 mmol/L 12/07/16 05:40 BUN 122 mg/dL (9-20) H 12/07/16 05:40 Creatinine 5.1 mg/dL (0.8-1.5) H 12/07/16 05:40 Estimated GFR 14 ml/min 12/07/16 05:40 BUN/Creatinine Ratio 23.92 % 12/07/16 05:40 Glucose 226 mg/dL (75-100) H 12/07/16 05:40 POC Glucose 238 (70-105) H 12/07/16 05:19 Hemoglobin A1c 10.6 % (4-6) H 11/28/16 16:02 Lactic Acid 2.60 mmol/L (0.7-2.0) H* 12/04/16 13:22 Calcium 7.9 mg/dL (8.4-10.2) L 12/07/16 05:40 Total Bilirubin 2.70 mg/dL (0.1-1.2) H 12/02/16 19:23 AST 36 units/L (5-40) 12/02/16 19:23 ALT 30 units/L (7-56) 12/02/16 19:23 Alkaline Phosphatase 111 units/L (35-129) 12/02/16 19:23 Total Creatine Kinase 59 units/L (55-170) 12/02/16 19:23 CK-MB (CK-2) 1.9 ng/mL (0.0-4.0) 12/02/16 19:23 CK-MB (CK-2) Rel Index 3.2 (0-4) 12/02/16 19:23 Troponin T 0.098 ng/mL (0.00-0.029) H 12/03/16 08:01 Total Protein 6.0 g/dL (6.3-8.2) L 12/02/16 19:23 Albumin 2.7 g/dL (3.9-5) L 12/02/16 19:23 Albumin/Globulin Ratio 0.8 % 12/02/16 19:23 Triglycerides 72 mg/dL (2-149) 11/30/16 20:37 Cholesterol 132 mg/dL (50-199) 11/30/16 20:37 LDL Cholesterol Direct 82 mg/dL (50-130) 11/30/16 20:37 HDL Cholesterol 36 mg/dL (40-59) L 11/30/16 20:37 Cholesterol/HDL Ratio 3.66 % 11/30/16 20:37 Urine Color Yellow (Yellow) 11/30/16 10:00 Urine Turbidity Clear (Clear) 11/30/16 10:00 Urine pH 6.0 (5.0-7.0) 11/30/16 10:00 Ur Specific [place] 1.018 (1.003-1.030) 11/30/16 10:00 Urine Protein 30 mg/dl mg/dL (Negative) 11/30/16 10:00 Urine Glucose (UA) Neg mg/dL (Negative) 11/30/16 10:00 Urine Ketones Neg mg/dL (Negative) 11/30/16 10:00 Urine Blood Neg (Negative) 11/30/16 10:00 Urine Nitrite Neg (Negative) 11/30/16 10:00 Urine Bilirubin Neg (Negative) 11/30/16 10:00 Urine Urobilinogen < 2.0 mg/dL (<2.0) 11/30/16 10:00 Ur Leukocyte Esterase Tr (Negative) 11/30/16 10:00 Urine WBC (Auto) 2.0 /HPF (0.0-6.0) 11/30/16 10:00 Urine RBC (Auto) < 1.0 /HPF (0.0-6.0) 11/30/16 10:00 U Epithel Cells (Auto) < 1.0 /HPF (0-13.0) 11/30/16 10:00 Urine Eosinophils None seen (None Seen) 11/30/16 10:00 Urine Creatinine 78.6 mg/dL (0.1-20.0) H 11/30/16 10:00 Urine Sodium 10 mEq/L 11/30/16 10:00 Vancomycin Trough 19.0 ug/mL (5.0-20.0) 12/03/16 06:04 Random Vancomycin 24.7 ug/mL (0-40.0) 12/05/16 05:00
--- NOTE | 2016-12-07 09:59 | Progress Note ---
Subjective Principal diagnosis: bilateral leg wounds; TREMAINE Interval history: Patient was seen today for follow-up and multiple renal-related issues Patient remains ventilator dependent hemodynamically little better today Patient was started on a bicarbonate drip made some urine Case was also discussed with pulmonary physician who was of the opinion that patient may benefit from renal replacement therapy Events of 24 hours vitals labs intake output medications were reviewed Social history: Reviewed Family history: Reviewed Allergies: Reviewed Physical examination Vitals reviewed HEENT: Mild pallor no icterus Neck: Supple no JVD Chest: Clear to auscultation Heart: Regular rate and rhythm Abdomen soft nontender no renal bruit no CVA tenderness Extremity: Mild edema dry skin Assessment and plan Acute kidney injury patient likely has acute tubular necrosis appears to be severe I believe patient can be started on renal replacement therapy would like to discuss with about access as well as hemodialysis procedure itself as he is critically ill, so I'll basically like his kidney function is getting worse doesn't need to start dialysis If the family agrees we can start him on hemodialysis today and possibly consider some [id number] treatment to improve his metabolic control We have been adequately educated his yesterday about the renal-related issues Creatinine appears to have stabilized but urine output is not there Would like to discuss with primary team if patient is going to benefit from renal replacement therapy We'll continue to follow and make recommendation from renal standpoint Objective - Vital Signs Vital signs: Vital Signs - 12hr 12/06/16 12/06/16 12/06/16 22:00 22:15 22:30 Temperature Pulse Rate 93 H 80 91 H Pulse Rate [ From Monitor] Respiratory 17 15 20 Rate Blood Pressure 104/59 109/62 119/52 O2 Sat by Pulse 100 100 Oximetry 12/06/16 12/06/16 12/06/16 22:45 23:01 23:14 Temperature Pulse Rate 91 H 87 83 Pulse Rate [ From Monitor] Respiratory 20 25 H Rate Blood Pressure 119/52 104/59 104/59 O2 Sat by Pulse 100 100 Oximetry 12/06/16 12/06/16 12/06/16 23:15 23:31 23:45 Temperature Pulse Rate 89 92 H 96 H Pulse Rate [ From Monitor] Respiratory 15 20 23 Rate Blood Pressure 112/51 114/55 114/55 O2 Sat by Pulse 100 100 100 Oximetry 12/06/16 12/07/16 12/07/16 23:53 00:00 00:01 Temperature 98.8 F Pulse Rate 90 Pulse Rate [ 90 From Monitor] Respiratory 18 19 Rate Blood Pressure 106/46 O2 Sat by Pulse 100 100 Oximetry 12/07/16 12/07/16 12/07/16 00:15 00:30 00:45 Temperature Pulse Rate 88 87 90 Pulse Rate [ From Monitor] Respiratory 20 21 15 Rate Blood Pressure 108/55 110/57 110/53 O2 Sat by Pulse 100 100 100 Oximetry 12/07/16 12/07/16 12/07/16 01:00 01:15 01:30 Temperature Pulse Rate 82 91 H 75 Pulse Rate [ From Monitor] Respiratory 14 23 21 Rate Blood Pressure 120/59 121/71 110/60 O2 Sat by Pulse 100 100 100 Oximetry 12/07/16 12/07/16 12/07/16 01:45 02:00 02:15 Temperature Pulse Rate 84 86 86 Pulse Rate [ From Monitor] Respiratory 13 18 14 Rate Blood Pressure 114/60 116/61 109/67 O2 Sat by Pulse 100 100 100 Oximetry 12/07/16 12/07/16 12/07/16 02:31 02:45 03:01 Temperature Pulse Rate 83 93 H 87 Pulse Rate [ From Monitor] Respiratory 15 31 H 18 Rate Blood Pressure 120/56 120/56 107/49 O2 Sat by Pulse 100 100 100 Oximetry 12/07/16 12/07/16 12/07/16 03:15 03:31 03:45 Temperature Pulse Rate 82 97 H 93 H Pulse Rate [ From Monitor] Respiratory 22 34 H 26 H Rate Blood Pressure 119/90 118/63 118/63 O2 Sat by Pulse 100 100 98 Oximetry 12/07/16 12/07/16 12/07/16 04:00 04:15 04:31 Temperature 97.9 F Pulse Rate 101 H 92 H 90 Pulse Rate [ 101 H From Monitor] Respiratory 22 20 21 Rate Blood Pressure 131/62 122/63 116/62 O2 Sat by Pulse 100 100 100 Oximetry 12/07/16 12/07/16 12/07/16 04:45 04:51 05:01 Temperature Pulse Rate 85 86 88 Pulse Rate [ From Monitor] Respiratory 19 19 Rate Blood Pressure 121/66 121/66 118/55 O2 Sat by Pulse 100 100 100 Oximetry 12/07/16 12/07/16 12/07/16 05:15 05:30 05:45 Temperature Pulse Rate 83 80 83 Pulse Rate [ From Monitor] Respiratory 16 17 18 Rate Blood Pressure 114/60 103/68 114/66 O2 Sat by Pulse 100 100 100 Oximetry 12/07/16 12/07/16 12/07/16 06:00 06:15 06:30 Temperature Pulse Rate 93 H 92 H 84 Pulse Rate [ From Monitor] Respiratory 17 16 16 Rate Blood Pressure 127/65 121/61 115/63 O2 Sat by Pulse 100 100 100 Oximetry 12/07/16 12/07/16 12/07/16 06:45 07:10 07:15 Temperature Pulse Rate 86 87 82 Pulse Rate [ From Monitor] Respiratory 17 15 16 Rate Blood Pressure 126/63 118/58 O2 Sat by Pulse 100 100 100 Oximetry 12/07/16 12/07/16 12/07/16 07:59 08:00 08:13 Temperature 98.5 F Pulse Rate 87 90 Pulse Rate [ 95 H From Monitor] Respiratory 21 Rate Blood Pressure 116/69 116/69 O2 Sat by Pulse 100 100 Oximetry 12/07/16 09:00 Temperature Pulse Rate 104 H Pulse Rate [ From Monitor] Respiratory 28 H Rate Blood Pressure 125/63 O2 Sat by Pulse 100 Oximetry - Lab 12/07/16 05:40 12/07/16 05:40 Most recent lab results Calcium 7.9 mg/dL (8.4-10.2) L 12/07/16 05:40 Urine Creatinine 78.6 mg/dL (0.1-20.0) H 11/30/16 10:00 Urine Sodium 10 mEq/L 11/30/16 10:00
[2016-12-07] MEDS: DAKIN'S HALF STRENGTH TP SCH ×2 (10:39→22:43)
[2016-12-07] MEDS: TRIPLE ANTIBIOTIC TP SCH (10:39)
[2016-12-07] MEDS: PEPCID PO SCH (10:39)
--- NOTE | 2016-12-07 10:49 | Progress Note ---
Assessment and Plan Device interrogation yesterday revealed no VF/VT, no asystole, underlying rhythm is AFib/AFlutter, no device discharges, normal device function. However, per charge nurse who was present during pt's code blue on 12/02/2016, pt was pulseless and with asystole and then VF requiring defibrillation on bedside monitor during his code blue. Pt is not currently a candidate for systemic anticoagulation in regards to underlying AFib/AFlutter d/t anemia and thrombocytopenia. Cont present cardiac regimen. The patient has been seen in conjunction with Dr. Fowler who agrees with the assessment and plan of care. - Patient Problems (1) Hx-sudden cardiac arrest Current Visit: Yes Status: Acute (2) Abnormal EKG Current Visit: Yes Status: Acute (3) Bilateral leg ulcer Current Visit: Yes Status: Chronic Qualifiers: Non-pressure ulcer stage: N (4) Chest pain Current Visit: Yes Status: Chronic Qualifiers: Chest pain type: C Ischemic chest pain type: I (5) Shortness of breath Current Visit: Yes Status: Chronic (6) Wound infection Current Visit: Yes Status: Chronic (7) Acute on chronic renal failure Current Visit: No Status: Acute Qualifiers: Acute renal failure type: A Chronic kidney disease stage: C (8) Acute on chronic systolic heart failure Current Visit: No Status: Acute (9) COPD exacerbation Current Visit: No Status: Acute (10) Dehydration Current Visit: No Status: Acute (11) CAD (coronary artery disease) Current Visit: No Status: Chronic Qualifiers: Coronary Disease-Associated Artery/Lesion type: C [place] vs. transplanted heart: N Associated angina: A (12) Diabetes Current Visit: No Status: Chronic Qualifiers: Diabetes mellitus type: D Diabetes mellitus complication status: D Diabetes mellitus complication detail: D Diabetic retinopathy severity: D Proliferative retinopathy type: P Diabetes mellitus macular edema: D Diabetes mellitus half-way insulin use: D Laterality: L Chronic kidney disease stage: C (13) Hx of CABG Current Visit: No Status: Chronic (14) Ischemic cardiomyopathy Current Visit: No Status: Chronic (15) PAD (peripheral artery disease) Current Visit: No Status: Chronic (16) S/P implantation of automatic cardioverter/defibrillator (AICD) Current Visit: No Status: Chronic (17) Mitral regurgitation Current Visit: Yes Status: Chronic Qualifiers: Cardiac valve disease etiology: C (18) Tricuspid valve regurgitation Current Visit: Yes Status: Chronic Qualifiers: Cardiac valve disease etiology: C (19) Pulmonary hypertension Current Visit: Yes Status: Chronic Subjective Date of service: 12/07/16 Principal diagnosis: bilateral leg wounds; TREMAINE Interval history: Pt resting in bed, off sedation and responding intermittently to commands. Remains intubated. Off pressors. No family at bedside. Objective Last Vital Signs Temp 98.5 F 12/07/16 07:59 Pulse 86 12/07/16 10:00 Resp 14 12/07/16 10:00 BP 117/52 12/07/16 10:00 Pulse Ox 100 12/07/16 10:00 - Physical Examination General: Other ( Intubated, Mild response to commands) HEENT: Positive: Normocephaly, Mucus Membranes Moist, Other (Pupils: reacting to light.) Neck: Positive: neck supple, trachea midline Lungs: Positive: Rhonchi Neuro: Positive: Other (Arousable, Minimal response to commands.) Abdomen: Positive: Soft, Active Bowel Sounds Skin: Positive: Clear, Other (Multiple ulcers in the legs - Dressing in situ.). Negative: Rash Musculoskeletal: other (Dressing in situ (multiple ulcers in the legs).) Extremities: Present: +2 Edema. Absent: lower extr. pulses - Labs and Meds CBC 12/07/16 Range/Units 05:40 WBC 15.6 H (4.5-11.0) K/mm3 RBC 2.71 L (3.65-5.03) M/mm3 Hgb 7.4 L (11.8-15.2) gm/dl Hct 22.6 L (35.5-45.6) % Plt Count 61 L (140-440) K/mm3 Comprehensive Metabolic Panel 12/07/16 Range/Units 05:40 Sodium 136 L (137-145) mmol/L Potassium 4.2 (3.6-5.0) mmol/L Chloride 99.0 (98-107) mmol/L Carbon Dioxide 19 L (22-30) mmol/L BUN 122 H (9-20) mg/dL Creatinine 5.1 H (0.8-1.5) mg/dL Glucose 226 H (75-100) mg/dL Calcium 7.9 L (8.4-10.2) mg/dL - Imaging and Cardiology EKG: report reviewed, image reviewed Echo: report reviewed, image reviewed
[2016-12-07] MEDS: SUBLIMAZE IV PRN ×2 (11:17→22:25)
[2016-12-07] MEDS: LEVEMIR SUB-Q SCH (11:51)
--- NOTE | 2016-12-07 12:28 | Progress Note ---
Assessment and Plan Cardiac arrest. No new cardiac events. Venous Doppler evaluation failed to show any evidence of DVT, in view of renal problems. See also cardiology, and Acute respiratory failure on ventilator support. Unchanged but unable to wean at this point. Congestive heart failure. Some chest congestion noted. Also, being evaluated by nephrology for possible hemodialysis to be started in, in view of potential fluid management problem TREMAINE P. pacemaker Sepsis. On broad-spectrum antibiotic coverage for wound culture, gram-negative infection. He is being closely monitored for respiratory tract infection, culture positive for stenotrophomonas. We'll wait for ID to review this but in case of any worsening or persisting infection signs, we will initiate Bactrim adjusted to renal clearance Infected ulcers Recommendations Continue antibiotics. We'll maintain off sedation Discussed with nephrology, hemodialysis will follow Neurology follow-up regarding ongoing encephalopathy We will reassess for SBT trial in am f/u cardiology evaluation comments No family available Critical care time was 31 minutes [id number] evaluation and coordination of care Subjective Date of service: 12/07/16 Principal diagnosis: acute respiratory failure bilateral leg wounds; TREMAINE Interval history: Intubated Objective Vital Signs - 12hr 12/07/16 12/07/16 12/07/16 00:30 00:45 01:00 Temperature Pulse Rate 87 90 82 Pulse Rate [ From Monitor] Respiratory 21 15 14 Rate Blood Pressure 110/57 110/53 120/59 O2 Sat by Pulse 100 100 100 Oximetry 12/07/16 12/07/16 12/07/16 01:15 01:30 01:45 Temperature Pulse Rate 91 H 75 84 Pulse Rate [ From Monitor] Respiratory 23 21 13 Rate Blood Pressure 121/71 110/60 114/60 O2 Sat by Pulse 100 100 100 Oximetry 12/07/16 12/07/16 12/07/16 02:00 02:15 02:31 Temperature Pulse Rate 86 86 83 Pulse Rate [ From Monitor] Respiratory 18 14 15 Rate Blood Pressure 116/61 109/67 120/56 O2 Sat by Pulse 100 100 100 Oximetry 12/07/16 12/07/16 12/07/16 02:45 03:01 03:15 Temperature Pulse Rate 93 H 87 82 Pulse Rate [ From Monitor] Respiratory 31 H 18 22 Rate Blood Pressure 120/56 107/49 119/90 O2 Sat by Pulse 100 100 100 Oximetry 12/07/16 12/07/16 12/07/16 03:31 03:45 04:00 Temperature 97.9 F Pulse Rate 97 H 93 H 101 H Pulse Rate [ 101 H From Monitor] Respiratory 34 H 26 H 22 Rate Blood Pressure 118/63 118/63 131/62 O2 Sat by Pulse 100 98 100 Oximetry 12/07/16 12/07/16 12/07/16 04:15 04:31 04:45 Temperature Pulse Rate 92 H 90 85 Pulse Rate [ From Monitor] Respiratory 20 21 19 Rate Blood Pressure 122/63 116/62 121/66 O2 Sat by Pulse 100 100 100 Oximetry 12/07/16 12/07/16 12/07/16 04:51 05:01 05:15 Temperature Pulse Rate 86 88 83 Pulse Rate [ From Monitor] Respiratory 19 16 Rate Blood Pressure 121/66 118/55 114/60 O2 Sat by Pulse 100 100 100 Oximetry 12/07/16 12/07/16 12/07/16 05:30 05:45 06:00 Temperature Pulse Rate 80 83 93 H Pulse Rate [ From Monitor] Respiratory 17 18 17 Rate Blood Pressure 103/68 114/66 127/65 O2 Sat by Pulse 100 100 100 Oximetry 12/07/16 12/07/16 12/07/16 06:15 06:30 06:45 Temperature Pulse Rate 92 H 84 86 Pulse Rate [ From Monitor] Respiratory 16 16 17 Rate Blood Pressure 121/61 115/63 126/63 O2 Sat by Pulse 100 100 100 Oximetry 12/07/16 12/07/16 12/07/16 07:10 07:15 07:59 Temperature 98.5 F Pulse Rate 87 82 Pulse Rate [ From Monitor] Respiratory 15 16 Rate Blood Pressure 118/58 O2 Sat by Pulse 100 100 Oximetry 12/07/16 12/07/16 12/07/16 08:00 08:13 09:00 Temperature Pulse Rate 87 90 104 H Pulse Rate [ 95 H From Monitor] Respiratory 21 28 H Rate Blood Pressure 116/69 116/69 125/63 O2 Sat by Pulse 100 100 100 Oximetry 12/07/16 10:00 Temperature Pulse Rate 86 Pulse Rate [ From Monitor] Respiratory 14 Rate Blood Pressure 117/52 O2 Sat by Pulse 100 Oximetry Constitutional: comatose Eyes: other (pupils poorly reactive but equal) ENT: other (orally intubated) Neck: supple, no JVD Ascultation: Bilateral: rales (anteriorly) Percussion: Bilateral: not dull Cardiovascular: other (pacemaker rhythm) Gastrointestinal: normoactive bowel sounds, soft Extremities: no edema, cool Neurologic: pupils equal and round, unable to assess CBC and BMP: 12/07/16 05:40 12/07/16 05:40 ABG, PT/INR, D-dimer: ABG POC ABG pH 7.417 (7.35-7.45) 12/07/16 04:50 POC ABG pCO2 31.3 (35-45) L 12/07/16 04:50 POC ABG pO2 96 (80-105) 12/07/16 04:50 POC ABG HCO3 20.2 12/07/16 04:50 POC ABG Total CO2 21 12/07/16 04:50 POC ABG O2 Sat 98 12/07/16 04:50 PT/INR, D-dimer PT 16.6 Sec. (12.2-14.9) H 12/02/16 19:20 INR 1.27 (0.87-1.13) H 12/02/16 19:20 Abnormal lab findings: Abnormal Labs 11/28/16 11/28/16 11/28/16 14:16 16:02 16:02 WBC RBC Hgb Hct MCV MCH MCHC RDW Plt Count Lymph % (Auto) [place] % (Auto) Lymph # [place] # Seg Neutrophils % Seg Neuts % (Manual) Lymphocytes % (Manual) Monocytes % (Manual) Seg Neutrophils # Seg Neutrophils # Man Lymphocytes # (Manual) Monocytes # (Manual) PT 17.3 H INR 1.42 H APTT 38.0 H Heparin Anti-Xa Level POC ABG pH POC ABG pCO2 POC ABG pO2 Sodium Potassium 3.3 L Chloride 96.0 L Carbon Dioxide BUN 100 H Creatinine 3.4 H Glucose 235 H POC Glucose 500 H Hemoglobin A1c Lactic Acid Calcium Total Bilirubin Troponin T Total Protein Albumin HDL Cholesterol Urine Creatinine 11/28/16 11/28/16 11/29/16 16:02 21:30 05:50 WBC RBC Hgb Hct MCV MCH MCHC RDW Plt Count Lymph % (Auto) [place] % (Auto) Lymph # [place] # Seg Neutrophils % Seg Neuts % (Manual) Lymphocytes % (Manual) Monocytes % (Manual) Seg Neutrophils # Seg Neutrophils # Man Lymphocytes # (Manual) Monocytes # (Manual) PT INR APTT Heparin Anti-Xa Level POC ABG pH POC ABG pCO2 POC ABG pO2 Sodium Potassium Chloride Carbon Dioxide BUN Creatinine Glucose POC Glucose 68 L 40 L Hemoglobin A1c 10.6 H Lactic Acid Calcium Total Bilirubin Troponin T Total Protein Albumin HDL Cholesterol Urine Creatinine 11/29/16 11/29/16 11/29/16 06:33 08:37 08:37 WBC RBC Hgb 10.2 L Hct 30.9 L MCV MCH MCHC RDW 16.0 H Plt Count 104 L Lymph % (Auto) 2.4 L [place] % (Auto) 8.5 H Lymph # 0.2 L [place] # 0.9 H Seg Neutrophils % 89.0 H Seg Neuts % (Manual) Lymphocytes % (Manual) Monocytes % (Manual) Seg Neutrophils # 9.2 H Seg Neutrophils # Man Lymphocytes # (Manual) Monocytes # (Manual) PT INR APTT Heparin Anti-Xa Level POC ABG pH POC ABG pCO2 POC ABG pO2 Sodium Potassium Chloride Carbon Dioxide BUN 95 H Creatinine 2.9 H Glucose POC Glucose 57 L Hemoglobin A1c Lactic Acid Calcium Total Bilirubin Troponin T Total Protein Albumin HDL Cholesterol Urine Creatinine 11/29/16 11/29/16 11/29/16 11:41 12:48 15:44 WBC RBC Hgb Hct MCV MCH MCHC RDW Plt Count Lymph % (Auto) [place] % (Auto) Lymph # [place] # Seg Neutrophils % Seg Neuts % (Manual) Lymphocytes % (Manual) Monocytes % (Manual) Seg Neutrophils # Seg Neutrophils # Man Lymphocytes # (Manual) Monocytes # (Manual) PT INR APTT Heparin Anti-Xa Level POC ABG pH POC ABG pCO2 POC ABG pO2 Sodium Potassium Chloride Carbon Dioxide BUN Creatinine Glucose POC Glucose 48 L 143 H 138 H Hemoglobin A1c Lactic Acid Calcium Total Bilirubin Troponin T Total Protein Albumin HDL Cholesterol Urine Creatinine 11/29/16 11/29/16 11/30/16 21:04 22:26 06:11 WBC RBC Hgb Hct MCV MCH MCHC RDW Plt Count Lymph % (Auto) [place] % (Auto) Lymph # [place] # Seg Neutrophils % Seg Neuts % (Manual) Lymphocytes % (Manual) Monocytes % (Manual) Seg Neutrophils # Seg Neutrophils # Man Lymphocytes # (Manual) Monocytes # (Manual) PT INR APTT Heparin Anti-Xa Level POC ABG pH POC ABG pCO2 POC ABG pO2 Sodium Potassium Chloride Carbon Dioxide BUN Creatinine Glucose POC Glucose 49 L 165 H 121 H Hemoglobin A1c Lactic Acid Calcium Total Bilirubin Troponin T Total Protein Albumin HDL Cholesterol Urine Creatinine 11/30/16 11/30/16 11/30/16 08:53 08:53 10:00 WBC RBC Hgb 10.9 L Hct 33.2 L MCV MCH MCHC RDW 16.3 H Plt Count 96 L Lymph % (Auto) [place] % (Auto) Lymph # [place] # Seg Neutrophils % Seg Neuts % (Manual) 91.0 H Lymphocytes % (Manual) 2.0 L Monocytes % (Manual) Seg Neutrophils # Seg Neutrophils # Man 9.3 H Lymphocytes # (Manual) 0.2 L Monocytes # (Manual) PT INR APTT Heparin Anti-Xa Level POC ABG pH POC ABG pCO2 POC ABG pO2 Sodium Potassium Chloride Carbon Dioxide BUN 78 H Creatinine 2.3 H Glucose 139 H POC Glucose Hemoglobin A1c Lactic Acid Calcium 8.3 L Total Bilirubin Troponin T Total Protein Albumin HDL Cholesterol Urine Creatinine 78.6 H 11/30/16 11/30/16 11/30/16 11:23 17:43 20:23 WBC RBC Hgb Hct MCV MCH MCHC RDW Plt Count Lymph % (Auto) [place] % (Auto) Lymph # [place] # Seg Neutrophils % Seg Neuts % (Manual) Lymphocytes % (Manual) Monocytes % (Manual) Seg Neutrophils # Seg Neutrophils # Man Lymphocytes # (Manual) Monocytes # (Manual) PT INR APTT Heparin Anti-Xa Level POC ABG pH POC ABG pCO2 POC ABG pO2 Sodium Potassium Chloride Carbon Dioxide BUN Creatinine Glucose POC Glucose 169 H 57 L 69 L Hemoglobin A1c Lactic Acid Calcium Total Bilirubin Troponin T Total Protein Albumin HDL Cholesterol Urine Creatinine 11/30/16 11/30/16 12/01/16 20:37 22:12 05:30 WBC RBC Hgb Hct MCV MCH MCHC RDW Plt Count Lymph % (Auto) [place] % (Auto) Lymph # [place] # Seg Neutrophils % Seg Neuts % (Manual) Lymphocytes % (Manual) Monocytes % (Manual) Seg Neutrophils # Seg Neutrophils # Man Lymphocytes # (Manual) Monocytes # (Manual) PT INR APTT Heparin Anti-Xa Level POC ABG pH POC ABG pCO2 POC ABG pO2 Sodium Potassium Chloride Carbon Dioxide BUN Creatinine Glucose POC Glucose 107 H 151 H Hemoglobin A1c Lactic Acid Calcium Total Bilirubin Troponin T 0.033 H Total Protein Albumin HDL Cholesterol 36 L Urine Creatinine 12/01/16 12/01/16 12/01/16 07:39 07:39 11:48 WBC 12.9 H RBC Hgb 10.9 L Hct 33.2 L MCV MCH MCHC RDW 16.6 H Plt Count 94 L Lymph % (Auto) [place] % (Auto) Lymph # [place] # Seg Neutrophils % Seg Neuts % (Manual) 98.0 H Lymphocytes % (Manual) 0 L Monocytes % (Manual) Seg Neutrophils # Seg Neutrophils # Man 12.6 H Lymphocytes # (Manual) 0.0 L Monocytes # (Manual) PT INR APTT Heparin Anti-Xa Level POC ABG pH POC ABG pCO2 POC ABG pO2 Sodium Potassium Chloride Carbon Dioxide BUN 71 H Creatinine 2.1 H Glucose POC Glucose 193 H Hemoglobin A1c Lactic Acid Calcium 8.1 L Total Bilirubin Troponin T Total Protein Albumin HDL Cholesterol Urine Creatinine 12/01/16 12/01/16 12/02/16 17:02 21:17 06:05 WBC RBC Hgb Hct MCV MCH MCHC RDW Plt Count Lymph % (Auto) [place] % (Auto) Lymph # [place] # Seg Neutrophils % Seg Neuts % (Manual) Lymphocytes % (Manual) Monocytes % (Manual) Seg Neutrophils # Seg Neutrophils # Man Lymphocytes # (Manual) Monocytes # (Manual) PT INR APTT Heparin Anti-Xa Level POC ABG pH POC ABG pCO2 POC ABG pO2 Sodium Potassium Chloride Carbon Dioxide BUN Creatinine Glucose POC Glucose 170 H 156 H < 40 L Hemoglobin A1c Lactic Acid Calcium Total Bilirubin Troponin T Total Protein Albumin HDL Cholesterol Urine Creatinine 12/02/16 12/02/16 12/02/16 06:34 06:41 07:48 WBC RBC Hgb 10.2 L Hct 31.4 L MCV MCH 27 L MCHC RDW 16.3 H Plt Count 89 L Lymph % (Auto) [place] % (Auto) Lymph # [place] # Seg Neutrophils % Seg Neuts % (Manual) 87.0 H Lymphocytes % (Manual) 7.0 L Monocytes % (Manual) Seg Neutrophils # Seg Neutrophils # Man 8.9 H Lymphocytes # (Manual) 0.7 L Monocytes # (Manual) PT INR APTT Heparin Anti-Xa Level POC ABG pH POC ABG pCO2 POC ABG pO2 Sodium Potassium Chloride Carbon Dioxide BUN Creatinine Glucose POC Glucose 141 H 124 H Hemoglobin A1c Lactic Acid Calcium Total Bilirubin Troponin T Total Protein Albumin HDL Cholesterol Urine Creatinine 12/02/16 12/02/16 12/02/16 07:48 12:22 18:02 WBC RBC Hgb Hct MCV MCH MCHC RDW Plt Count Lymph % (Auto) [place] % (Auto) Lymph # [place] # Seg Neutrophils % Seg Neuts % (Manual) Lymphocytes % (Manual) Monocytes % (Manual) Seg Neutrophils # Seg Neutrophils # Man Lymphocytes # (Manual) Monocytes # (Manual) PT INR APTT Heparin Anti-Xa Level POC ABG pH POC ABG pCO2 POC ABG pO2 Sodium 136 L Potassium Chloride Carbon Dioxide BUN 75 H Creatinine 2.7 H Glucose POC Glucose < 40 L 53 L Hemoglobin A1c Lactic Acid Calcium 7.9 L Total Bilirubin Troponin T Total Protein Albumin HDL Cholesterol Urine Creatinine 12/02/16 12/02/16 12/02/16 19:20 19:23 19:23 WBC 13.8 H RBC Hgb 10.9 L Hct 34.6 L MCV MCH 27 L MCHC 31 L RDW 16.2 H Plt Count 106 L Lymph % (Auto) [place] % (Auto) Lymph # [place] # Seg Neutrophils % Seg Neuts % (Manual) 86.0 H Lymphocytes % (Manual) 4.0 L Monocytes % (Manual) Seg Neutrophils # Seg Neutrophils # Man 11.9 H Lymphocytes # (Manual) 0.6 L Monocytes # (Manual) 1.0 H PT 16.6 H INR 1.27 H APTT 45.4 H Heparin Anti-Xa Level POC ABG pH POC ABG pCO2 POC ABG pO2 Sodium Potassium Chloride 95.8 L Carbon Dioxide BUN 75 H Creatinine 2.8 H Glucose 105 H POC Glucose Hemoglobin A1c Lactic Acid Calcium 7.8 L Total Bilirubin 2.70 H Troponin T Total Protein 6.0 L Albumin 2.7 L HDL Cholesterol Urine Creatinine 12/02/16 12/02/16 12/03/16 19:39 21:14 01:15 WBC RBC Hgb Hct MCV MCH MCHC RDW Plt Count Lymph % (Auto) [place] % (Auto) Lymph # [place] # Seg Neutrophils % Seg Neuts % (Manual) Lymphocytes % (Manual) Monocytes % (Manual) Seg Neutrophils # Seg Neutrophils # Man Lymphocytes # (Manual) Monocytes # (Manual) PT INR APTT Heparin Anti-Xa Level < 0.10 L POC ABG pH 7.214 L POC ABG pCO2 54.0 H POC ABG pO2 227 H Sodium Potassium Chloride Carbon Dioxide BUN Creatinine Glucose POC Glucose 141 H Hemoglobin A1c Lactic Acid Calcium Total Bilirubin Troponin T Total Protein Albumin HDL Cholesterol Urine Creatinine 12/03/16 12/03/16 12/03/16 04:15 05:15 06:04 WBC 45.9 H* RBC Hgb 10.5 L Hct 32.9 L MCV MCH 27 L MCHC RDW 16.6 H Plt Count 101 L Lymph % (Auto) [place] % (Auto) Lymph # [place] # Seg Neutrophils % Seg Neuts % (Manual) Lymphocytes % (Manual) 8.0 L Monocytes % (Manual) 8.0 H Seg Neutrophils # Seg Neutrophils # Man 31.2 H Lymphocytes # (Manual) Monocytes # (Manual) 3.7 H PT INR APTT Heparin Anti-Xa Level POC ABG pH POC ABG pCO2 POC ABG pO2 72 L Sodium Potassium Chloride Carbon Dioxide BUN Creatinine Glucose POC Glucose 50 L Hemoglobin A1c Lactic Acid Calcium Total Bilirubin Troponin T Total Protein Albumin HDL Cholesterol Urine Creatinine 12/03/16 12/03/16 12/03/16 06:04 06:51 08:01 WBC RBC Hgb Hct MCV MCH MCHC RDW Plt Count Lymph % (Auto) [place] % (Auto) Lymph # [place] # Seg Neutrophils % Seg Neuts % (Manual) Lymphocytes % (Manual) Monocytes % (Manual) Seg Neutrophils # Seg Neutrophils # Man Lymphocytes # (Manual) Monocytes # (Manual) PT INR APTT Heparin Anti-Xa Level POC ABG pH POC ABG pCO2 POC ABG pO2 Sodium 128 L D Potassium 6.8 H* D Chloride 94.2 L Carbon Dioxide 17 L BUN 77 H Creatinine 2.6 H Glucose POC Glucose 118 H Hemoglobin A1c Lactic Acid Calcium 7.6 L Total Bilirubin Troponin T 0.098 H Total Protein Albumin HDL Cholesterol Urine Creatinine 12/03/16 12/03/16 12/03/16 08:13 09:44 12:19 WBC RBC Hgb Hct MCV MCH MCHC RDW Plt Count Lymph % (Auto) [place] % (Auto) Lymph # [place] # Seg Neutrophils % Seg Neuts % (Manual) Lymphocytes % (Manual) Monocytes % (Manual) Seg Neutrophils # Seg Neutrophils # Man Lymphocytes # (Manual) Monocytes # (Manual) PT INR APTT Heparin Anti-Xa Level POC ABG pH POC ABG pCO2 POC ABG pO2 Sodium Potassium Chloride Carbon Dioxide BUN Creatinine Glucose POC Glucose 107 H 115 H Hemoglobin A1c Lactic Acid 3.40 H* Calcium Total Bilirubin Troponin T Total Protein Albumin HDL Cholesterol Urine Creatinine 12/03/16 12/03/16 12/03/16 16:39 17:49 20:15 WBC 18.9 H RBC 3.04 L Hgb 8.4 L Hct 26.2 L MCV MCH MCHC RDW 16.6 H Plt Count 81 L Lymph % (Auto) [place] % (Auto) Lymph # [place] # Seg Neutrophils % Seg Neuts % (Manual) 94.0 H Lymphocytes % (Manual) 1.0 L Monocytes % (Manual) Seg Neutrophils # Seg Neutrophils # Man 17.8 H Lymphocytes # (Manual) 0.2 L Monocytes # (Manual) PT INR APTT Heparin Anti-Xa Level POC ABG pH POC ABG pCO2 POC ABG pO2 Sodium Potassium Chloride Carbon Dioxide BUN Creatinine Glucose POC Glucose 151 H Hemoglobin A1c Lactic Acid 3.10 H* Calcium Total Bilirubin Troponin T Total Protein Albumin HDL Cholesterol Urine Creatinine 12/03/16 12/03/16 12/03/16 23:34 Unknown Unknown WBC 22.2 H RBC 3.16 L Hgb 8.6 L Hct 27.3 L MCV MCH 27 L MCHC 31 L RDW 16.9 H Plt Count 81 L Lymph % (Auto) [place] % (Auto) Lymph # [place] # Seg Neutrophils % Seg Neuts % (Manual) Lymphocytes % (Manual) Monocytes % (Manual) Seg Neutrophils # Seg Neutrophils # Man Lymphocytes # (Manual) Monocytes # (Manual) PT INR APTT Heparin Anti-Xa Level POC ABG pH POC ABG pCO2 POC ABG pO2 Sodium 132 L Potassium Chloride 95.8 L Carbon Dioxide 19 L BUN 93 H Creatinine 3.4 H Glucose 130 H POC Glucose 188 H Hemoglobin A1c Lactic Acid Calcium 7.4 L Total Bilirubin Troponin T Total Protein Albumin HDL Cholesterol Urine Creatinine 12/04/16 12/04/16 12/04/16 04:57 05:45 06:00 WBC 17.8 H RBC 3.07 L Hgb 8.7 L Hct 26.1 L MCV MCH MCHC RDW 16.5 H Plt Count 93 L Lymph % (Auto) [place] % (Auto) Lymph # [place] # Seg Neutrophils % Seg Neuts % (Manual) 80.0 H Lymphocytes % (Manual) 7.0 L Monocytes % (Manual) Seg Neutrophils # Seg Neutrophils # Man 14.2 H Lymphocytes # (Manual) Monocytes # (Manual) 1.1 H PT INR APTT Heparin Anti-Xa Level POC ABG pH 7.277 L POC ABG pCO2 POC ABG pO2 198 H Sodium Potassium Chloride Carbon Dioxide BUN Creatinine Glucose POC Glucose 186 H Hemoglobin A1c Lactic Acid Calcium Total Bilirubin Troponin T Total Protein Albumin HDL Cholesterol Urine Creatinine 12/04/16 12/04/16 12/04/16 06:00 07:23 11:50 WBC RBC Hgb Hct MCV MCH MCHC RDW Plt Count Lymph % (Auto) [place] % (Auto) Lymph # [place] # Seg Neutrophils % Seg Neuts % (Manual) Lymphocytes % (Manual) Monocytes % (Manual) Seg Neutrophils # Seg Neutrophils # Man Lymphocytes # (Manual) Monocytes # (Manual) PT INR APTT Heparin Anti-Xa Level POC ABG pH POC ABG pCO2 POC ABG pO2 Sodium 133 L Potassium Chloride 96.0 L Carbon Dioxide 18 L BUN 103 H Creatinine 3.6 H Glucose 190 H POC Glucose 187 H 190 H Hemoglobin A1c Lactic Acid Calcium 7.7 L Total Bilirubin Troponin T Total Protein Albumin HDL Cholesterol Urine Creatinine 12/04/16 12/04/16 12/04/16 13:22 17:46 23:33 WBC RBC Hgb Hct MCV MCH MCHC RDW Plt Count Lymph % (Auto) [place] % (Auto) Lymph # [place] # Seg Neutrophils % Seg Neuts % (Manual) Lymphocytes % (Manual) Monocytes % (Manual) Seg Neutrophils # Seg Neutrophils # Man Lymphocytes # (Manual) Monocytes # (Manual) PT INR APTT Heparin Anti-Xa Level POC ABG pH POC ABG pCO2 POC ABG pO2 Sodium Potassium Chloride Carbon Dioxide BUN Creatinine Glucose POC Glucose 264 H 263 H Hemoglobin A1c Lactic Acid 2.60 H* Calcium Total Bilirubin Troponin T Total Protein Albumin HDL Cholesterol Urine Creatinine 12/05/16 12/05/16 12/05/16 05:00 05:00 05:17 WBC 17.1 H RBC 3.03 L Hgb 8.2 L Hct 25.9 L MCV MCH 27 L MCHC RDW 16.4 H Plt Count 81 L Lymph % (Auto) 1.3 L [place] % (Auto) 9.7 H Lymph # 0.2 L [place] # 1.7 H Seg Neutrophils % 88.9 H Seg Neuts % (Manual) Lymphocytes % (Manual) Monocytes % (Manual) Seg Neutrophils # 15.2 H Seg Neutrophils # Man Lymphocytes # (Manual) Monocytes # (Manual) PT INR APTT Heparin Anti-Xa Level POC ABG pH POC ABG pCO2 POC ABG pO2 Sodium 132 L Potassium Chloride 96.9 L Carbon Dioxide 19 L BUN 120 H Creatinine 4.8 H Glucose 193 H POC Glucose 229 H Hemoglobin A1c Lactic Acid Calcium 8.0 L Total Bilirubin Troponin T Total Protein Albumin HDL Cholesterol Urine Creatinine 12/05/16 12/05/16 12/05/16 06:00 11:46 17:53 WBC RBC Hgb Hct MCV MCH MCHC RDW Plt Count Lymph % (Auto) [place] % (Auto) Lymph # [place] # Seg Neutrophils % Seg Neuts % (Manual) Lymphocytes % (Manual) Monocytes % (Manual) Seg Neutrophils # Seg Neutrophils # Man Lymphocytes # (Manual) Monocytes # (Manual) PT INR APTT Heparin Anti-Xa Level POC ABG pH POC ABG pCO2 32.5 L POC ABG pO2 124 H Sodium Potassium Chloride Carbon Dioxide BUN Creatinine Glucose POC Glucose 139 H 170 H Hemoglobin A1c Lactic Acid Calcium Total Bilirubin Troponin T Total Protein Albumin HDL Cholesterol Urine Creatinine 12/05/16 12/06/16 12/06/16 23:24 04:20 05:57 WBC RBC Hgb Hct MCV MCH MCHC RDW Plt Count Lymph % (Auto) [place] % (Auto) Lymph # [place] # Seg Neutrophils % Seg Neuts % (Manual) Lymphocytes % (Manual) Monocytes % (Manual) Seg Neutrophils # Seg Neutrophils # Man Lymphocytes # (Manual) Monocytes # (Manual) PT INR APTT Heparin Anti-Xa Level POC ABG pH POC ABG pCO2 30.3 L POC ABG pO2 122 H Sodium Potassium Chloride Carbon Dioxide BUN Creatinine Glucose POC Glucose 153 H 166 H Hemoglobin A1c Lactic Acid Calcium Total Bilirubin Troponin T Total Protein Albumin HDL Cholesterol Urine Creatinine 12/06/16 12/06/16 12/06/16 06:00 06:00 11:32 WBC 18.1 H RBC 2.76 L Hgb 7.7 L Hct 23.4 L MCV MCH MCHC RDW 16.6 H Plt Count 62 L Lymph % (Auto) [place] % (Auto) Lymph # [place] # Seg Neutrophils % Seg Neuts % (Manual) 96.0 H Lymphocytes % (Manual) 0 L Monocytes % (Manual) Seg Neutrophils # Seg Neutrophils # Man 17.4 H Lymphocytes # (Manual) 0.0 L Monocytes # (Manual) PT INR APTT Heparin Anti-Xa Level POC ABG pH POC ABG pCO2 POC ABG pO2 Sodium 134 L Potassium Chloride 96.8 L Carbon Dioxide 19 L BUN 117 H Creatinine 4.9 H Glucose 179 H POC Glucose 300 H Hemoglobin A1c Lactic Acid Calcium 8.0 L Total Bilirubin Troponin T Total Protein Albumin HDL Cholesterol Urine Creatinine 12/06/16 12/06/16 12/06/16 11:33 18:11 23:23 WBC RBC Hgb Hct MCV MCH MCHC RDW Plt Count Lymph % (Auto) [place] % (Auto) Lymph # [place] # Seg Neutrophils % Seg Neuts % (Manual) Lymphocytes % (Manual) Monocytes % (Manual) Seg Neutrophils # Seg Neutrophils # Man Lymphocytes # (Manual) Monocytes # (Manual) PT INR APTT Heparin Anti-Xa Level POC ABG pH POC ABG pCO2 POC ABG pO2 Sodium Potassium Chloride Carbon Dioxide BUN Creatinine Glucose POC Glucose 204 H 246 H 225 H Hemoglobin A1c Lactic Acid Calcium Total Bilirubin Troponin T Total Protein Albumin HDL Cholesterol Urine Creatinine 12/07/16 12/07/16 12/07/16 04:50 05:19 05:40 WBC 15.6 H RBC 2.71 L Hgb 7.4 L Hct 22.6 L MCV 83 L MCH 27 L MCHC RDW 16.2 H Plt Count 61 L Lymph % (Auto) [place] % (Auto) Lymph # [place] # Seg Neutrophils % Seg Neuts % (Manual) 97.0 H Lymphocytes % (Manual) 0 L Monocytes % (Manual) Seg Neutrophils # Seg Neutrophils # Man 15.1 H Lymphocytes # (Manual) 0.0 L Monocytes # (Manual) PT INR APTT Heparin Anti-Xa Level POC ABG pH POC ABG pCO2 31.3 L POC ABG pO2 Sodium Potassium Chloride Carbon Dioxide BUN Creatinine Glucose POC Glucose 238 H Hemoglobin A1c Lactic Acid Calcium Total Bilirubin Troponin T Total Protein Albumin HDL Cholesterol Urine Creatinine 12/07/16 12/07/16 05:40 11:43 WBC RBC Hgb Hct MCV MCH MCHC RDW Plt Count Lymph % (Auto) [place] % (Auto) Lymph # [place] # Seg Neutrophils % Seg Neuts % (Manual) Lymphocytes % (Manual) Monocytes % (Manual) Seg Neutrophils # Seg Neutrophils # Man Lymphocytes # (Manual) Monocytes # (Manual) PT INR APTT Heparin Anti-Xa Level POC ABG pH POC ABG pCO2 POC ABG pO2 Sodium 136 L Potassium Chloride Carbon Dioxide 19 L BUN 122 H Creatinine 5.1 H Glucose 226 H POC Glucose 312 H Hemoglobin A1c Lactic Acid Calcium 7.9 L Total Bilirubin Troponin T Total Protein Albumin HDL Cholesterol Urine Creatinine
[2016-12-07] MEDS ORDERED: NACL 0.9% 500 ML 500 ML IV ONE (16:00)
--- NOTE | 2016-12-07 16:01 | Event Note ---
Discussed with patient and explained , Discussed with patient's over the phone who called back after I had left her a message She was to patient to start dialysis. I have discussed with her about the options regarding Vas-Cath placement, hemodialysis, hemodynamic instability, and remotely during the hemodialysiss in a critically ill patient. She does understand the risk and benefit and is willing to proceed with hemodialysis We'll consult vascular surgery and get a Vas-Cath to start dialysis sometime today or tomorrow
[2016-12-07] MEDS ORDERED: NACL 0.9% 100 ML IV PRN (16:04)
[2016-12-07] MEDS: ROCEPHIN/NS 1 GM/50 ML 1 GM/50 ML BAG IV SCH (17:45)
[2016-12-07] MEDS: PROTONIX IV SCH (22:48)
[2016-12-08] MEDS: SUBLIMAZE IV PRN ×4 (02:28→16:26)
[2016-12-08] MEDS: ATIVAN IV PRN (03:58)
[2016-12-08 04:33] LABS: Basophils % (Auto) 0.1 % (0.0-1.8); Eosinophils % (Auto) 0.7 % (0.0-4.3); Hematocrit 21.1 % (35.5-45.6); Mean Corpuscular HGB Conc 33 % (32-34); Mean Corpuscular Hemoglobin 28 pg (28-32); Mean Corpuscular Volume 85 fl (84-94); Red Cell Distribution Width 16.8 % (13.2-15.2); White Blood Count 13.2 K/mm3 (4.5-11.0)
[2016-12-08 04:37] LABS: Albumin 2.6 g/dL (3.9-5); Albumin/Globulin Ratio 0.9 %; Calcium 8.2 mg/dL (8.4-10.2); Chloride 100.8 mmol/L (98-107); Magnesium 2.1 mg/dL (1.7-2.3); Potassium 3.8 mmol/L (3.6-5.0); Total Protein 5.6 g/dL (6.3-8.2)
[2016-12-08 04:44] LABS: BUN/Creatinine Ratio 25.4
[2016-12-08 04:56] LABS: Platelet Count 44 K/mm3 (140-440)
--- NOTE | 2016-12-08 07:39 | Progress Note ---
Subjective Principal diagnosis: bilateral leg wounds; TREMAINE Interval history: Patient was seen today for follow-up and multiple renal-related issues Patient remains ventilator dependent hemodynamically little better today Patient remains ventilator dependent He is making some urine Events of 24 hours vitals labs intake output medications were reviewed Social history: Reviewed Family history: Reviewed Allergies: Reviewed Physical examination Vitals reviewed HEENT: Mild pallor no icterus Neck: Supple no JVD Chest: Clear to auscultation Heart: Regular rate and rhythm Abdomen soft nontender no renal bruit no CVA tenderness Extremity: Mild edema dry skin, has dressings on both lower extremity Assessment and plan Acute kidney injury patient likely has acute tubular necrosis appears to be severe patient has started making some urine He is in need for renal replacement therapy at this time to follow Patient will receive 2 units of packed red blood cell transfusion today He has started making some urine Goal will be to continue dialyzing him possibly today and tomorrow depending on his hemodynamics As far as mentation is concerned patient does not follow any meaningful commands According to the nurse today he does interact to some degree with his family members however Currently is pending Vas-Cath placement discussed with Dr. Adhikari to place the catheter Overall prognosis appears to be very poor with multiorgan failure high mortality risk in my opinion Family has been well explained about all of the above/mainly -discussed yesterday as well We'll continue to follow and make recommendation from renal standpoint Objective - Vital Signs Vital signs: Vital Signs - 12hr 12/07/16 12/07/16 12/07/16 20:00 21:00 22:00 Temperature 97.0 F L Pulse Rate 88 87 87 Pulse Rate [ 87 From Monitor] Respiratory 23 14 18 Rate Respiratory Rate [ Generalized] Blood Pressure 96/49 116/57 118/53 O2 Sat by Pulse 100 100 100 Oximetry 12/07/16 12/07/16 12/07/16 22:25 22:55 23:00 Temperature Pulse Rate 95 H Pulse Rate [ From Monitor] Respiratory 13 12 11 L Rate Respiratory 16 Rate [ Generalized] Blood Pressure 110/57 O2 Sat by Pulse 100 Oximetry 12/07/16 12/07/16 12/08/16 23:12 23:42 00:00 Temperature 97.5 F L Pulse Rate 90 89 91 H Pulse Rate [ 91 H From Monitor] Respiratory 11 L 12 Rate Respiratory Rate [ Generalized] Blood Pressure 110/57 116/57 107/54 O2 Sat by Pulse 100 100 100 Oximetry 12/08/16 12/08/16 12/08/16 01:00 02:00 02:28 Temperature Pulse Rate 91 H 93 H Pulse Rate [ From Monitor] Respiratory 13 14 19 Rate Respiratory Rate [ Generalized] Blood Pressure 112/58 111/54 O2 Sat by Pulse 100 100 Oximetry 12/08/16 12/08/16 12/08/16 03:00 04:00 07:00 Temperature 97.1 F L Pulse Rate 82 101 H 91 H Pulse Rate [ From Monitor] Respiratory 17 12 12 Rate Respiratory Rate [ Generalized] Blood Pressure 116/63 103/57 113/63 O2 Sat by Pulse 100 100 100 Oximetry - Lab 12/10/16 08:30 12/09/16 05:50 Most recent lab results Calcium 8.2 mg/dL (8.4-10.2) L 12/08/16 04:00 Magnesium 2.10 mg/dL (1.7-2.3) 12/08/16 04:00 Urine Creatinine 78.6 mg/dL (0.1-20.0) H 11/30/16 10:00 Urine Sodium 10 mEq/L 11/30/16 10:00
--- NOTE | 2016-12-08 07:43 | Progress Note ---
Assessment and Plan Assessment and plan: --Sudden cardiopulmonary arrest status post CPR per ACLS protocol --Anoxic encephalopathy, closely monitor supportive care, neurology evaluation CT head without contrast, consider MRI, EEG --Acute hypoxic respiratory failure; on mechanical ventilation more than 96 hours Nebulizers, IV steroids, IV antibiotics, ventilatory support Pulmonary following --Status post AICD; interrogation underlying rhythm A. fib if rectal No V. fib ,VT or asystole, cardiology following --Ischemic cardiomyopathy, ejection fraction of 15-20% Cardiology following, continue current antiseizure medications --Acute on chronic kidney disease v; nephrology following hemodialysis as needed --Acute anemia; multifactorial, heme-positive stool as well as anemia due to acute renal failure Closely monitor H&H, transfuse 2 units of PRBC during dialysis, followed GI evaluation --Thrombocytopenia, closely monitor, no evidence of acute bleeding However patient has heme positive stool and anemia --Leukocytosis, secondary to sepsis, continue IV antibiotics Trending down, significantly improved from 45K to 15K, closely monitor --Sepsis secondary to polymicrobial wound infection Continue current antibiotics, follow cultures, ID following --DVT prophylaxis; SCDs No pharmacologic anticoagulation in view of anemia Patient full CODE STATUS Very poor prognosis, will discuss plan of care with the family when available Patient's condition treatment plan discussed in detail with the patient's nurse as well as the case management Critical care time 32 minutes History Interval history: patient seen and evaluated medical records reviewed No new events reported to nursing staff Remains intubated on ventilatory support and sedated Vital signs reviewed Hospitalist Physical - Constitutional Vitals: Temp Pulse Resp BP Pulse Ox 97.1 F L 91 H 12 113/63 100 12/08/16 04:00 12/08/16 07:00 12/08/16 07:00 12/08/16 07:00 12/08/16 07:00 General appearance: Present: no acute distress, other (orally intubated on ventilatory support and sedated) - EENT Eyes: Present: PERRL, EOM intact - Neck Neck: Present: supple, normal ROM - Respiratory Respiratory effort: normal Respiratory: bilateral: diminished, rhonchi, negative: wheezing - Cardiovascular Rhythm: regular Heart Sounds: Present: S1 & S2 - Extremities Extremities: no ischemia, pulses intact - Abdominal General gastrointestinal: soft, non-tender, non-distended, normal bowel sounds - Integumentary Integumentary: Present: clear, warm - Psychiatric Psychiatric: other (the patient sedated) - Neurologic Neurologic: other (intubated and sedated) Results - Labs CBC & Chem 7: 12/08/16 18:20 12/08/16 04:00 Labs: Laboratory Last Values WBC 13.2 K/mm3 (4.5-11.0) H 12/08/16 04:00 RBC 2.50 M/mm3 (3.65-5.03) L 12/08/16 04:00 Hgb 7.0 gm/dl (11.8-15.2) L 12/08/16 04:00 Hct 21.1 % (35.5-45.6) L 12/08/16 04:00 MCV 85 fl (84-94) 12/08/16 04:00 MCH 28 pg (28-32) 12/08/16 04:00 MCHC 33 % (32-34) 12/08/16 04:00 RDW 16.8 % (13.2-15.2) H 12/08/16 04:00 Plt Count 44 K/mm3 (140-440) L 12/08/16 04:00 Lymph % (Auto) 1.5 % (13.4-35.0) L 12/08/16 04:00 Alexander % (Auto) 9.1 % (0.0-7.3) H 12/08/16 04:00 Eos % (Auto) 0.7 % (0.0-4.3) 12/08/16 04:00 Baso % (Auto) 0.1 % (0.0-1.8) 12/08/16 04:00 Lymph # 0.2 K/mm3 (1.2-5.4) L 12/08/16 04:00 Alexander # 1.2 K/mm3 (0.0-0.8) H 12/08/16 04:00 Eos # 0.1 K/mm3 (0.0-0.4) 12/08/16 04:00 Baso # 0.0 K/mm3 (0.0-0.1) 12/08/16 04:00 Add Manual Diff Complete 12/07/16 05:40 Total Counted 100 12/07/16 05:40 Seg Neutrophils % 88.6 % (40.0-70.0) H 12/08/16 04:00 Seg Neuts % (Manual) 97.0 % (40.0-70.0) H 12/07/16 05:40 Band Neutrophils % 0 % 12/07/16 05:40 Lymphocytes % (Manual) 0 % (13.4-35.0) L 12/07/16 05:40 Reactive Lymphs % (Man) 0 % 12/07/16 05:40 Monocytes % (Manual) 3.0 % (0.0-7.3) 12/07/16 05:40 Eosinophils % (Manual) 0 % (0.0-4.3) 12/07/16 05:40 Basophils % (Manual) 0 % (0.0-1.8) 12/07/16 05:40 Metamyelocytes % 0 % 12/07/16 05:40 Myelocytes % 0 % 12/07/16 05:40 Promyelocytes % 0 % 12/07/16 05:40 Blast Cells % 0 % 12/07/16 05:40 Nucleated RBC % Not Reportable 12/07/16 05:40 Seg Neutrophils # 11.7 K/mm3 (1.8-7.7) H 12/08/16 04:00 Seg Neutrophils # Man 15.1 K/mm3 (1.8-7.7) H 12/07/16 05:40 Band Neutrophils # 0.0 K/mm3 12/07/16 05:40 Lymphocytes # (Manual) 0.0 K/mm3 (1.2-5.4) L 12/07/16 05:40 Abs React Lymphs (Man) 0.0 K/mm3 12/07/16 05:40 Monocytes # (Manual) 0.5 K/mm3 (0.0-0.8) 12/07/16 05:40 Eosinophils # (Manual) 0.0 K/mm3 (0.0-0.4) 12/07/16 05:40 Basophils # (Manual) 0.0 K/mm3 (0.0-0.1) 12/07/16 05:40 Metamyelocytes # 0.0 K/mm3 12/07/16 05:40 Myelocytes # 0.0 K/mm3 12/07/16 05:40 Promyelocytes # 0.0 K/mm3 12/07/16 05:40 Blast Cells # 0.0 K/mm3 12/07/16 05:40 WBC Morphology Not Reportable 12/07/16 05:40 Hypersegmented Neuts Not Reportable 12/07/16 05:40 Hyposegmented Neuts Not Reportable 12/07/16 05:40 Hypogranular Neuts Not Reportable 12/07/16 05:40 Smudge Cells Not Reportable 12/07/16 05:40 Toxic Granulation Not Reportable 12/07/16 05:40 Toxic Vacuolation Not Reportable 12/07/16 05:40 Dohle Bodies Not Reportable 12/07/16 05:40 Pelger-Huet Anomaly Not Reportable 12/07/16 05:40 Demetra Rods Not Reportable 12/07/16 05:40 Platelet Estimate Consistent w auto 12/07/16 05:40 Clumped Platelets Not Reportable 12/07/16 05:40 Plt Clumps, EDTA Not Reportable 12/07/16 05:40 Large Platelets Not Reportable 12/07/16 05:40 Giant Platelets Not Reportable 12/07/16 05:40 Platelet Satelliting Not Reportable 12/07/16 05:40 Plt Morphology Comment Not Reportable 12/07/16 05:40 RBC Morphology Not Reportable 12/07/16 05:40 Dimorphic RBCs Not Reportable 12/07/16 05:40 Polychromasia Not Reportable 12/07/16 05:40 Hypochromasia Not Reportable 12/07/16 05:40 Poikilocytosis Not Reportable 12/07/16 05:40 Anisocytosis 1+ 12/07/16 05:40 Microcytosis Not Reportable 12/07/16 05:40 Macrocytosis Not Reportable 12/07/16 05:40 Spherocytes Not Reportable 12/07/16 05:40 Pappenheimer Bodies Not Reportable 12/07/16 05:40 Sickle Cells Not Reportable 12/07/16 05:40 Target Cells 1+ 12/07/16 05:40 Tear Drop Cells Not Reportable 12/07/16 05:40 Ovalocytes Not Reportable 12/07/16 05:40 Helmet Cells Not Reportable 12/07/16 05:40 Don-Hyampom Bodies Not Reportable 12/07/16 05:40 Hollins Rings Not Reportable 12/07/16 05:40 [place] Cells Not Reportable 12/07/16 05:40 Bite Cells Not Reportable 12/07/16 05:40 Crenated Cell Not Reportable 12/07/16 05:40 Elliptocytes Not Reportable 12/07/16 05:40 Acanthocytes (Spur) Not Reportable 12/07/16 05:40 Rouleaux Not Reportable 12/07/16 05:40 Hemoglobin C Crystals Not Reportable 12/07/16 05:40 Schistocytes Not Reportable 12/07/16 05:40 Malaria parasites Not Reportable 12/07/16 05:40 Romeo Bodies Not Reportable 12/07/16 05:40 Hem Pathologist Commnt No 12/07/16 05:40 PT 16.6 Sec. (12.2-14.9) H 12/02/16 19:20 INR 1.27 (0.87-1.13) H 12/02/16 19:20 APTT 45.4 Sec. (24.2-36.6) H 12/02/16 19:20 Heparin Anti-Xa Level < 0.10 U.I./ml (0.3-0.7) L 12/03/16 01:15 POC ABG pH 7.417 (7.35-7.45) 12/07/16 04:50 POC ABG pCO2 31.3 (35-45) L 12/07/16 04:50 POC ABG pO2 96 (80-105) 12/07/16 04:50 POC ABG HCO3 20.2 12/07/16 04:50 POC ABG Total CO2 21 12/07/16 04:50 POC ABG O2 Sat 98 12/07/16 04:50 POC ABG Base Excess -4 12/07/16 04:50 FiO2 30 % 12/07/16 04:50 Sodium 136 mmol/L (137-145) L 12/07/16 05:40 Potassium 4.2 mmol/L (3.6-5.0) 12/07/16 05:40 Chloride 99.0 mmol/L (98-107) 12/07/16 05:40 Carbon Dioxide 21 mmol/L (22-30) L 12/08/16 04:00 Anion Gap 22 mmol/L 12/07/16 05:40 BUN 127 mg/dL (9-20) H 12/08/16 04:00 Creatinine 5.0 mg/dL (0.8-1.5) H 12/08/16 04:00 Estimated GFR 14 ml/min 12/08/16 04:00 BUN/Creatinine Ratio 25.40 % 12/08/16 04:00 Glucose 148 mg/dL (75-100) H 12/08/16 04:00 POC Glucose 134 (70-105) H 12/08/16 05:34 Hemoglobin A1c 10.6 % (4-6) H 11/28/16 16:02 Lactic Acid 2.60 mmol/L (0.7-2.0) H* 12/04/16 13:22 Calcium 8.2 mg/dL (8.4-10.2) L 12/08/16 04:00 Magnesium 2.10 mg/dL (1.7-2.3) 12/08/16 04:00 Total Bilirubin 2.00 mg/dL (0.1-1.2) H 12/08/16 04:00 AST 35 units/L (5-40) 12/08/16 04:00 ALT 37 units/L (7-56) 12/08/16 04:00 Alkaline Phosphatase 132 units/L (35-129) H 12/08/16 04:00 Total Creatine Kinase 59 units/L (55-170) 12/02/16 19:23 CK-MB (CK-2) 1.9 ng/mL (0.0-4.0) 12/02/16 19:23 CK-MB (CK-2) Rel Index 3.2 (0-4) 12/02/16 19:23 Troponin T 0.098 ng/mL (0.00-0.029) H 12/03/16 08:01 Total Protein 5.6 g/dL (6.3-8.2) L 12/08/16 04:00 Albumin 2.6 g/dL (3.9-5) L 12/08/16 04:00 Albumin/Globulin Ratio 0.9 % 12/08/16 04:00 Triglycerides 72 mg/dL (2-149) 11/30/16 20:37 Cholesterol 132 mg/dL (50-199) 11/30/16 20:37 LDL Cholesterol Direct 82 mg/dL (50-130) 11/30/16 20:37 HDL Cholesterol 36 mg/dL (40-59) L 11/30/16 20:37 Cholesterol/HDL Ratio 3.66 % 11/30/16 20:37 Urine Color Yellow (Yellow) 11/30/16 10:00 Urine Turbidity Clear (Clear) 11/30/16 10:00 Urine pH 6.0 (5.0-7.0) 11/30/16 10:00 Ur Specific Harris 1.018 (1.003-1.030) 11/30/16 10:00 Urine Protein 30 mg/dl mg/dL (Negative) 11/30/16 10:00 Urine Glucose (UA) Neg mg/dL (Negative) 11/30/16 10:00 Urine Ketones Neg mg/dL (Negative) 11/30/16 10:00 Urine Blood Neg (Negative) 11/30/16 10:00 Urine Nitrite Neg (Negative) 11/30/16 10:00 Urine Bilirubin Neg (Negative) 11/30/16 10:00 Urine Urobilinogen < 2.0 mg/dL (<2.0) 11/30/16 10:00 Ur Leukocyte Esterase Tr (Negative) 11/30/16 10:00 Urine WBC (Auto) 2.0 /HPF (0.0-6.0) 11/30/16 10:00 Urine RBC (Auto) < 1.0 /HPF (0.0-6.0) 11/30/16 10:00 U Epithel Cells (Auto) < 1.0 /HPF (0-13.0) 11/30/16 10:00 Urine Eosinophils None seen (None Seen) 11/30/16 10:00 Urine Creatinine 78.6 mg/dL (0.1-20.0) H 11/30/16 10:00 Urine Sodium 10 mEq/L 11/30/16 10:00 Vancomycin Trough 19.0 ug/mL (5.0-20.0) 12/03/16 06:04 Random Vancomycin 24.7 ug/mL (0-40.0) 12/05/16 05:00 Blood Type B POSITIVE 12/07/16 16:09 Antibody Screen TNR 12/07/16 16:09 RHONDA Antibody Screen Negative 12/07/16 16:09 Crossmatch See Detail 12/07/16 16:09
--- NOTE | 2016-12-08 08:30 | Cat Scan Report ---
CT HEAD WITHOUT CONTRAST: HISTORY: Encephalopathy. TECHNIQUE: Sequential CT images without contrast. FINDINGS: Compared to 11/17/16. Images obtained show bilateral prominence of the sulci and ventricles. There are no abnormal intra- or extra-axial blood or fluid collections. There are no focal masses or evidence of mass effect. The [place]z white matter differentiation appears within normal limits. Regions of periventricular decreased attenuation are consistent with microangiopathic ischemic disease. The posterior fossa structures including the fourth ventricle, cerebellum, and brainstem appear normal. There is a large amount of fluid and mucosal thickening throughout all visualized paranasal sinuses. A right nasal tube is in position. The mastoid air cells are clear. IMPRESSION: Evidence of atrophy and microangiopathic ischemic disease. No acute intracranial process noted. Sinus disease.
--- NOTE | 2016-12-08 08:43 | Progress Note ---
Assessment and Plan Cardiac arrest. No new cardiac events. Acute respiratory failure on ventilator support. Congestive heart failure. Suspected lower GI bleeding. GI evaluation in process Thrombocytopenia. Patient's septic, off heparin TREMAINE P. pacemaker Sepsis. Infected ulcers Recommendations EDG as planned SBT evaluation H&H next 24 hours Continue neurological monitoring. If he able to become more responsive might be able to wean completely and extubated. If not ,he will need eventually tracheotomy Critical care time was 31 minutes [id number] evaluation and coordination of care Subjective Date of service: 12/08/16 Principal diagnosis: bilateral leg wounds; TREMAINE Interval history: Patient remains intubated. Off sedation Objective Vital Signs - 12hr 12/07/16 12/07/16 12/07/16 21:00 22:00 22:25 Temperature Pulse Rate 87 87 Pulse Rate [ From Monitor] Respiratory 14 18 13 Rate Respiratory 16 Rate [ Generalized] Blood Pressure 116/57 118/53 O2 Sat by Pulse 100 100 Oximetry 12/07/16 12/07/16 12/07/16 22:55 23:00 23:12 Temperature Pulse Rate 95 H 90 Pulse Rate [ From Monitor] Respiratory 12 11 L 11 L Rate Respiratory Rate [ Generalized] Blood Pressure 110/57 110/57 O2 Sat by Pulse 100 100 Oximetry 12/07/16 12/08/16 12/08/16 23:42 00:00 01:00 Temperature 97.5 F L Pulse Rate 89 91 H 91 H Pulse Rate [ 91 H From Monitor] Respiratory 12 13 Rate Respiratory Rate [ Generalized] Blood Pressure 116/57 107/54 112/58 O2 Sat by Pulse 100 100 100 Oximetry 12/08/16 12/08/16 12/08/16 02:00 02:28 03:00 Temperature Pulse Rate 93 H 82 Pulse Rate [ From Monitor] Respiratory 14 19 17 Rate Respiratory Rate [ Generalized] Blood Pressure 111/54 116/63 O2 Sat by Pulse 100 100 Oximetry 12/08/16 12/08/16 12/08/16 04:00 07:00 07:40 Temperature 97.1 F L Pulse Rate 101 H 91 H 88 Pulse Rate [ 91 H From Monitor] Respiratory 12 12 Rate Respiratory Rate [ Generalized] Blood Pressure 103/57 113/63 110/59 O2 Sat by Pulse 100 100 100 Oximetry Constitutional: other (stuporous) Eyes: other (pupils reactive and equal) ENT: other (orally intubated) Neck: supple, no JVD Ascultation: Bilateral: clear, diminished breath sounds Percussion: Bilateral: not dull Cardiovascular: other (pacemaker rhythm) Gastrointestinal: normoactive bowel sounds, soft Extremities: no edema, cool Neurologic: pupils equal and round, other (attempts to move all extremities spontaneously on stimulation, nonpurposeful) CBC and BMP: 12/08/16 04:00 12/08/16 04:00 ABG, PT/INR, D-dimer: ABG POC ABG pH 7.417 (7.35-7.45) 12/07/16 04:50 POC ABG pCO2 31.3 (35-45) L 12/07/16 04:50 POC ABG pO2 96 (80-105) 12/07/16 04:50 POC ABG HCO3 20.2 12/07/16 04:50 POC ABG Total CO2 21 12/07/16 04:50 POC ABG O2 Sat 98 12/07/16 04:50 PT/INR, D-dimer PT 16.6 Sec. (12.2-14.9) H 12/02/16 19:20 INR 1.27 (0.87-1.13) H 12/02/16 19:20 Abnormal lab findings: Abnormal Labs 11/28/16 11/28/16 11/28/16 14:16 16:02 16:02 WBC RBC Hgb Hct MCV MCH MCHC RDW Plt Count Lymph % (Auto) Dunn % (Auto) Lymph # Dunn # Seg Neutrophils % Seg Neuts % (Manual) Lymphocytes % (Manual) Monocytes % (Manual) Seg Neutrophils # Seg Neutrophils # Man Lymphocytes # (Manual) Monocytes # (Manual) PT 17.3 H INR 1.42 H APTT 38.0 H Heparin Anti-Xa Level POC ABG pH POC ABG pCO2 POC ABG pO2 Sodium Potassium 3.3 L Chloride 96.0 L Carbon Dioxide BUN 100 H Creatinine 3.4 H Glucose 235 H POC Glucose 500 H Hemoglobin A1c Lactic Acid Calcium Total Bilirubin Alkaline Phosphatase Troponin T Total Protein Albumin HDL Cholesterol Urine Creatinine Crossmatch 11/28/16 11/28/16 11/29/16 16:02 21:30 05:50 WBC RBC Hgb Hct MCV MCH MCHC RDW Plt Count Lymph % (Auto) Dunn % (Auto) Lymph # Dunn # Seg Neutrophils % Seg Neuts % (Manual) Lymphocytes % (Manual) Monocytes % (Manual) Seg Neutrophils # Seg Neutrophils # Man Lymphocytes # (Manual) Monocytes # (Manual) PT INR APTT Heparin Anti-Xa Level POC ABG pH POC ABG pCO2 POC ABG pO2 Sodium Potassium Chloride Carbon Dioxide BUN Creatinine Glucose POC Glucose 68 L 40 L Hemoglobin A1c 10.6 H Lactic Acid Calcium Total Bilirubin Alkaline Phosphatase Troponin T Total Protein Albumin HDL Cholesterol Urine Creatinine Crossmatch 11/29/16 11/29/16 11/29/16 06:33 08:37 08:37 WBC RBC Hgb 10.2 L Hct 30.9 L MCV MCH MCHC RDW 16.0 H Plt Count 104 L Lymph % (Auto) 2.4 L Dunn % (Auto) 8.5 H Lymph # 0.2 L Dunn # 0.9 H Seg Neutrophils % 89.0 H Seg Neuts % (Manual) Lymphocytes % (Manual) Monocytes % (Manual) Seg Neutrophils # 9.2 H Seg Neutrophils # Man Lymphocytes # (Manual) Monocytes # (Manual) PT INR APTT Heparin Anti-Xa Level POC ABG pH POC ABG pCO2 POC ABG pO2 Sodium Potassium Chloride Carbon Dioxide BUN 95 H Creatinine 2.9 H Glucose POC Glucose 57 L Hemoglobin A1c Lactic Acid Calcium Total Bilirubin Alkaline Phosphatase Troponin T Total Protein Albumin HDL Cholesterol Urine Creatinine Crossmatch 11/29/16 11/29/16 11/29/16 11:41 12:48 15:44 WBC RBC Hgb Hct MCV MCH MCHC RDW Plt Count Lymph % (Auto) [place] % (Auto) Lymph # [place] # Seg Neutrophils % Seg Neuts % (Manual) Lymphocytes % (Manual) Monocytes % (Manual) Seg Neutrophils # Seg Neutrophils # Man Lymphocytes # (Manual) Monocytes # (Manual) PT INR APTT Heparin Anti-Xa Level POC ABG pH POC ABG pCO2 POC ABG pO2 Sodium Potassium Chloride Carbon Dioxide BUN Creatinine Glucose POC Glucose 48 L 143 H 138 H Hemoglobin A1c Lactic Acid Calcium Total Bilirubin Alkaline Phosphatase Troponin T Total Protein Albumin HDL Cholesterol Urine Creatinine Crossmatch 11/29/16 11/29/16 11/30/16 21:04 22:26 06:11 WBC RBC Hgb Hct MCV MCH MCHC RDW Plt Count Lymph % (Auto) [place] % (Auto) Lymph # [place] # Seg Neutrophils % Seg Neuts % (Manual) Lymphocytes % (Manual) Monocytes % (Manual) Seg Neutrophils # Seg Neutrophils # Man Lymphocytes # (Manual) Monocytes # (Manual) PT INR APTT Heparin Anti-Xa Level POC ABG pH POC ABG pCO2 POC ABG pO2 Sodium Potassium Chloride Carbon Dioxide BUN Creatinine Glucose POC Glucose 49 L 165 H 121 H Hemoglobin A1c Lactic Acid Calcium Total Bilirubin Alkaline Phosphatase Troponin T Total Protein Albumin HDL Cholesterol Urine Creatinine Crossmatch 11/30/16 11/30/16 11/30/16 08:53 08:53 10:00 WBC RBC Hgb 10.9 L Hct 33.2 L MCV MCH MCHC RDW 16.3 H Plt Count 96 L Lymph % (Auto) [place] % (Auto) Lymph # [place] # Seg Neutrophils % Seg Neuts % (Manual) 91.0 H Lymphocytes % (Manual) 2.0 L Monocytes % (Manual) Seg Neutrophils # Seg Neutrophils # Man 9.3 H Lymphocytes # (Manual) 0.2 L Monocytes # (Manual) PT INR APTT Heparin Anti-Xa Level POC ABG pH POC ABG pCO2 POC ABG pO2 Sodium Potassium Chloride Carbon Dioxide BUN 78 H Creatinine 2.3 H Glucose 139 H POC Glucose Hemoglobin A1c Lactic Acid Calcium 8.3 L Total Bilirubin Alkaline Phosphatase Troponin T Total Protein Albumin HDL Cholesterol Urine Creatinine 78.6 H Crossmatch 11/30/16 11/30/16 11/30/16 11:23 17:43 20:23 WBC RBC Hgb Hct MCV MCH MCHC RDW Plt Count Lymph % (Auto) [place] % (Auto) Lymph # [place] # Seg Neutrophils % Seg Neuts % (Manual) Lymphocytes % (Manual) Monocytes % (Manual) Seg Neutrophils # Seg Neutrophils # Man Lymphocytes # (Manual) Monocytes # (Manual) PT INR APTT Heparin Anti-Xa Level POC ABG pH POC ABG pCO2 POC ABG pO2 Sodium Potassium Chloride Carbon Dioxide BUN Creatinine Glucose POC Glucose 169 H 57 L 69 L Hemoglobin A1c Lactic Acid Calcium Total Bilirubin Alkaline Phosphatase Troponin T Total Protein Albumin HDL Cholesterol Urine Creatinine Crossmatch 11/30/16 11/30/16 12/01/16 20:37 22:12 05:30 WBC RBC Hgb Hct MCV MCH MCHC RDW Plt Count Lymph % (Auto) [place] % (Auto) Lymph # [place] # Seg Neutrophils % Seg Neuts % (Manual) Lymphocytes % (Manual) Monocytes % (Manual) Seg Neutrophils # Seg Neutrophils # Man Lymphocytes # (Manual) Monocytes # (Manual) PT INR APTT Heparin Anti-Xa Level POC ABG pH POC ABG pCO2 POC ABG pO2 Sodium Potassium Chloride Carbon Dioxide BUN Creatinine Glucose POC Glucose 107 H 151 H Hemoglobin A1c Lactic Acid Calcium Total Bilirubin Alkaline Phosphatase Troponin T 0.033 H Total Protein Albumin HDL Cholesterol 36 L Urine Creatinine Crossmatch 12/01/16 12/01/16 12/01/16 07:39 07:39 11:48 WBC 12.9 H RBC Hgb 10.9 L Hct 33.2 L MCV MCH MCHC RDW 16.6 H Plt Count 94 L Lymph % (Auto) Dunn % (Auto) Lymph # [place] # Seg Neutrophils % Seg Neuts % (Manual) 98.0 H Lymphocytes % (Manual) 0 L Monocytes % (Manual) Seg Neutrophils # Seg Neutrophils # Man 12.6 H Lymphocytes # (Manual) 0.0 L Monocytes # (Manual) PT INR APTT Heparin Anti-Xa Level POC ABG pH POC ABG pCO2 POC ABG pO2 Sodium Potassium Chloride Carbon Dioxide BUN 71 H Creatinine 2.1 H Glucose POC Glucose 193 H Hemoglobin A1c Lactic Acid Calcium 8.1 L Total Bilirubin Alkaline Phosphatase Troponin T Total Protein Albumin HDL Cholesterol Urine Creatinine Crossmatch 12/01/16 12/01/16 12/02/16 17:02 21:17 06:05 WBC RBC Hgb Hct MCV MCH MCHC RDW Plt Count Lymph % (Auto) [place] % (Auto) Lymph # [place] # Seg Neutrophils % Seg Neuts % (Manual) Lymphocytes % (Manual) Monocytes % (Manual) Seg Neutrophils # Seg Neutrophils # Man Lymphocytes # (Manual) Monocytes # (Manual) PT INR APTT Heparin Anti-Xa Level POC ABG pH POC ABG pCO2 POC ABG pO2 Sodium Potassium Chloride Carbon Dioxide BUN Creatinine Glucose POC Glucose 170 H 156 H < 40 L Hemoglobin A1c Lactic Acid Calcium Total Bilirubin Alkaline Phosphatase Troponin T Total Protein Albumin HDL Cholesterol Urine Creatinine Crossmatch 12/02/16 12/02/16 12/02/16 06:34 06:41 07:48 WBC RBC Hgb 10.2 L Hct 31.4 L MCV MCH 27 L MCHC RDW 16.3 H Plt Count 89 L Lymph % (Auto) Dunn % (Auto) Lymph # [place] # Seg Neutrophils % Seg Neuts % (Manual) 87.0 H Lymphocytes % (Manual) 7.0 L Monocytes % (Manual) Seg Neutrophils # Seg Neutrophils # Man 8.9 H Lymphocytes # (Manual) 0.7 L Monocytes # (Manual) PT INR APTT Heparin Anti-Xa Level POC ABG pH POC ABG pCO2 POC ABG pO2 Sodium Potassium Chloride Carbon Dioxide BUN Creatinine Glucose POC Glucose 141 H 124 H Hemoglobin A1c Lactic Acid Calcium Total Bilirubin Alkaline Phosphatase Troponin T Total Protein Albumin HDL Cholesterol Urine Creatinine Crossmatch 12/02/16 12/02/16 12/02/16 07:48 12:22 18:02 WBC RBC Hgb Hct MCV MCH MCHC RDW Plt Count Lymph % (Auto) [place] % (Auto) Lymph # [place] # Seg Neutrophils % Seg Neuts % (Manual) Lymphocytes % (Manual) Monocytes % (Manual) Seg Neutrophils # Seg Neutrophils # Man Lymphocytes # (Manual) Monocytes # (Manual) PT INR APTT Heparin Anti-Xa Level POC ABG pH POC ABG pCO2 POC ABG pO2 Sodium 136 L Potassium Chloride Carbon Dioxide BUN 75 H Creatinine 2.7 H Glucose POC Glucose < 40 L 53 L Hemoglobin A1c Lactic Acid Calcium 7.9 L Total Bilirubin Alkaline Phosphatase Troponin T Total Protein Albumin HDL Cholesterol Urine Creatinine Crossmatch 12/02/16 12/02/16 12/02/16 19:20 19:23 19:23 WBC 13.8 H RBC Hgb 10.9 L Hct 34.6 L MCV MCH 27 L MCHC 31 L RDW 16.2 H Plt Count 106 L Lymph % (Auto) Dunn % (Auto) Lymph # [place] # Seg Neutrophils % Seg Neuts % (Manual) 86.0 H Lymphocytes % (Manual) 4.0 L Monocytes % (Manual) Seg Neutrophils # Seg Neutrophils # Man 11.9 H Lymphocytes # (Manual) 0.6 L Monocytes # (Manual) 1.0 H PT 16.6 H INR 1.27 H APTT 45.4 H Heparin Anti-Xa Level POC ABG pH POC ABG pCO2 POC ABG pO2 Sodium Potassium Chloride 95.8 L Carbon Dioxide BUN 75 H Creatinine 2.8 H Glucose 105 H POC Glucose Hemoglobin A1c Lactic Acid Calcium 7.8 L Total Bilirubin 2.70 H Alkaline Phosphatase Troponin T Total Protein 6.0 L Albumin 2.7 L HDL Cholesterol Urine Creatinine Crossmatch 12/02/16 12/02/16 12/03/16 19:39 21:14 01:15 WBC RBC Hgb Hct MCV MCH MCHC RDW Plt Count Lymph % (Auto) [place] % (Auto) Lymph # [place] # Seg Neutrophils % Seg Neuts % (Manual) Lymphocytes % (Manual) Monocytes % (Manual) Seg Neutrophils # Seg Neutrophils # Man Lymphocytes # (Manual) Monocytes # (Manual) PT INR APTT Heparin Anti-Xa Level < 0.10 L POC ABG pH 7.214 L POC ABG pCO2 54.0 H POC ABG pO2 227 H Sodium Potassium Chloride Carbon Dioxide BUN Creatinine Glucose POC Glucose 141 H Hemoglobin A1c Lactic Acid Calcium Total Bilirubin Alkaline Phosphatase Troponin T Total Protein Albumin HDL Cholesterol Urine Creatinine Crossmatch 12/03/16 12/03/16 12/03/16 04:15 05:15 06:04 WBC 45.9 H* RBC Hgb 10.5 L Hct 32.9 L MCV MCH 27 L MCHC RDW 16.6 H Plt Count 101 L Lymph % (Auto) [place] % (Auto) Lymph # [place] # Seg Neutrophils % Seg Neuts % (Manual) Lymphocytes % (Manual) 8.0 L Monocytes % (Manual) 8.0 H Seg Neutrophils # Seg Neutrophils # Man 31.2 H Lymphocytes # (Manual) Monocytes # (Manual) 3.7 H PT INR APTT Heparin Anti-Xa Level POC ABG pH POC ABG pCO2 POC ABG pO2 72 L Sodium Potassium Chloride Carbon Dioxide BUN Creatinine Glucose POC Glucose 50 L Hemoglobin A1c Lactic Acid Calcium Total Bilirubin Alkaline Phosphatase Troponin T Total Protein Albumin HDL Cholesterol Urine Creatinine Crossmatch 12/03/16 12/03/16 12/03/16 06:04 06:51 08:01 WBC RBC Hgb Hct MCV MCH MCHC RDW Plt Count Lymph % (Auto) [place] % (Auto) Lymph # [place] # Seg Neutrophils % Seg Neuts % (Manual) Lymphocytes % (Manual) Monocytes % (Manual) Seg Neutrophils # Seg Neutrophils # Man Lymphocytes # (Manual) Monocytes # (Manual) PT INR APTT Heparin Anti-Xa Level POC ABG pH POC ABG pCO2 POC ABG pO2 Sodium 128 L D Potassium 6.8 H* D Chloride 94.2 L Carbon Dioxide 17 L BUN 77 H Creatinine 2.6 H Glucose POC Glucose 118 H Hemoglobin A1c Lactic Acid Calcium 7.6 L Total Bilirubin Alkaline Phosphatase Troponin T 0.098 H Total Protein Albumin HDL Cholesterol Urine Creatinine Crossmatch 12/03/16 12/03/16 12/03/16 08:13 09:44 12:19 WBC RBC Hgb Hct MCV MCH MCHC RDW Plt Count Lymph % (Auto) [place] % (Auto) Lymph # [place] # Seg Neutrophils % Seg Neuts % (Manual) Lymphocytes % (Manual) Monocytes % (Manual) Seg Neutrophils # Seg Neutrophils # Man Lymphocytes # (Manual) Monocytes # (Manual) PT INR APTT Heparin Anti-Xa Level POC ABG pH POC ABG pCO2 POC ABG pO2 Sodium Potassium Chloride Carbon Dioxide BUN Creatinine Glucose POC Glucose 107 H 115 H Hemoglobin A1c Lactic Acid 3.40 H* Calcium Total Bilirubin Alkaline Phosphatase Troponin T Total Protein Albumin HDL Cholesterol Urine Creatinine Crossmatch 12/03/16 12/03/16 12/03/16 16:39 17:49 20:15 WBC 18.9 H RBC 3.04 L Hgb 8.4 L Hct 26.2 L MCV MCH MCHC RDW 16.6 H Plt Count 81 L Lymph % (Auto) [place] % (Auto) Lymph # [place] # Seg Neutrophils % Seg Neuts % (Manual) 94.0 H Lymphocytes % (Manual) 1.0 L Monocytes % (Manual) Seg Neutrophils # Seg Neutrophils # Man 17.8 H Lymphocytes # (Manual) 0.2 L Monocytes # (Manual) PT INR APTT Heparin Anti-Xa Level POC ABG pH POC ABG pCO2 POC ABG pO2 Sodium Potassium Chloride Carbon Dioxide BUN Creatinine Glucose POC Glucose 151 H Hemoglobin A1c Lactic Acid 3.10 H* Calcium Total Bilirubin Alkaline Phosphatase Troponin T Total Protein Albumin HDL Cholesterol Urine Creatinine Crossmatch 12/03/16 12/03/16 12/03/16 23:34 Unknown Unknown WBC 22.2 H RBC 3.16 L Hgb 8.6 L Hct 27.3 L MCV MCH 27 L MCHC 31 L RDW 16.9 H Plt Count 81 L Lymph % (Auto) Dunn % (Auto) Lymph # [place] # Seg Neutrophils % Seg Neuts % (Manual) Lymphocytes % (Manual) Monocytes % (Manual) Seg Neutrophils # Seg Neutrophils # Man Lymphocytes # (Manual) Monocytes # (Manual) PT INR APTT Heparin Anti-Xa Level POC ABG pH POC ABG pCO2 POC ABG pO2 Sodium 132 L Potassium Chloride 95.8 L Carbon Dioxide 19 L BUN 93 H Creatinine 3.4 H Glucose 130 H POC Glucose 188 H Hemoglobin A1c Lactic Acid Calcium 7.4 L Total Bilirubin Alkaline Phosphatase Troponin T Total Protein Albumin HDL Cholesterol Urine Creatinine Crossmatch 12/04/16 12/04/16 12/04/16 04:57 05:45 06:00 WBC 17.8 H RBC 3.07 L Hgb 8.7 L Hct 26.1 L MCV MCH MCHC RDW 16.5 H Plt Count 93 L Lymph % (Auto) Dunn % (Auto) Lymph # [place] # Seg Neutrophils % Seg Neuts % (Manual) 80.0 H Lymphocytes % (Manual) 7.0 L Monocytes % (Manual) Seg Neutrophils # Seg Neutrophils # Man 14.2 H Lymphocytes # (Manual) Monocytes # (Manual) 1.1 H PT INR APTT Heparin Anti-Xa Level POC ABG pH 7.277 L POC ABG pCO2 POC ABG pO2 198 H Sodium Potassium Chloride Carbon Dioxide BUN Creatinine Glucose POC Glucose 186 H Hemoglobin A1c Lactic Acid Calcium Total Bilirubin Alkaline Phosphatase Troponin T Total Protein Albumin HDL Cholesterol Urine Creatinine Crossmatch 12/04/16 12/04/16 12/04/16 06:00 07:23 11:50 WBC RBC Hgb Hct MCV MCH MCHC RDW Plt Count Lymph % (Auto) [place] % (Auto) Lymph # [place] # Seg Neutrophils % Seg Neuts % (Manual) Lymphocytes % (Manual) Monocytes % (Manual) Seg Neutrophils # Seg Neutrophils # Man Lymphocytes # (Manual) Monocytes # (Manual) PT INR APTT Heparin Anti-Xa Level POC ABG pH POC ABG pCO2 POC ABG pO2 Sodium 133 L Potassium Chloride 96.0 L Carbon Dioxide 18 L BUN 103 H Creatinine 3.6 H Glucose 190 H POC Glucose 187 H 190 H Hemoglobin A1c Lactic Acid Calcium 7.7 L Total Bilirubin Alkaline Phosphatase Troponin T Total Protein Albumin HDL Cholesterol Urine Creatinine Crossmatch 12/04/16 12/04/16 12/04/16 13:22 17:46 23:33 WBC RBC Hgb Hct MCV MCH MCHC RDW Plt Count Lymph % (Auto) [place] % (Auto) Lymph # [place] # Seg Neutrophils % Seg Neuts % (Manual) Lymphocytes % (Manual) Monocytes % (Manual) Seg Neutrophils # Seg Neutrophils # Man Lymphocytes # (Manual) Monocytes # (Manual) PT INR APTT Heparin Anti-Xa Level POC ABG pH POC ABG pCO2 POC ABG pO2 Sodium Potassium Chloride Carbon Dioxide BUN Creatinine Glucose POC Glucose 264 H 263 H Hemoglobin A1c Lactic Acid 2.60 H* Calcium Total Bilirubin Alkaline Phosphatase Troponin T Total Protein Albumin HDL Cholesterol Urine Creatinine Crossmatch 12/05/16 12/05/16 12/05/16 05:00 05:00 05:17 WBC 17.1 H RBC 3.03 L Hgb 8.2 L Hct 25.9 L MCV MCH 27 L MCHC RDW 16.4 H Plt Count 81 L Lymph % (Auto) 1.3 L [place] % (Auto) 9.7 H Lymph # 0.2 L Dunn # 1.7 H Seg Neutrophils % 88.9 H Seg Neuts % (Manual) Lymphocytes % (Manual) Monocytes % (Manual) Seg Neutrophils # 15.2 H Seg Neutrophils # Man Lymphocytes # (Manual) Monocytes # (Manual) PT INR APTT Heparin Anti-Xa Level POC ABG pH POC ABG pCO2 POC ABG pO2 Sodium 132 L Potassium Chloride 96.9 L Carbon Dioxide 19 L BUN 120 H Creatinine 4.8 H Glucose 193 H POC Glucose 229 H Hemoglobin A1c Lactic Acid Calcium 8.0 L Total Bilirubin Alkaline Phosphatase Troponin T Total Protein Albumin HDL Cholesterol Urine Creatinine Crossmatch 12/05/16 12/05/16 12/05/16 06:00 11:46 17:53 WBC RBC Hgb Hct MCV MCH MCHC RDW Plt Count Lymph % (Auto) [place] % (Auto) Lymph # [place] # Seg Neutrophils % Seg Neuts % (Manual) Lymphocytes % (Manual) Monocytes % (Manual) Seg Neutrophils # Seg Neutrophils # Man Lymphocytes # (Manual) Monocytes # (Manual) PT INR APTT Heparin Anti-Xa Level POC ABG pH POC ABG pCO2 32.5 L POC ABG pO2 124 H Sodium Potassium Chloride Carbon Dioxide BUN Creatinine Glucose POC Glucose 139 H 170 H Hemoglobin A1c Lactic Acid Calcium Total Bilirubin Alkaline Phosphatase Troponin T Total Protein Albumin HDL Cholesterol Urine Creatinine Crossmatch 12/05/16 12/06/16 12/06/16 23:24 04:20 05:57 WBC RBC Hgb Hct MCV MCH MCHC RDW Plt Count Lymph % (Auto) [place] % (Auto) Lymph # [place] # Seg Neutrophils % Seg Neuts % (Manual) Lymphocytes % (Manual) Monocytes % (Manual) Seg Neutrophils # Seg Neutrophils # Man Lymphocytes # (Manual) Monocytes # (Manual) PT INR APTT Heparin Anti-Xa Level POC ABG pH POC ABG pCO2 30.3 L POC ABG pO2 122 H Sodium Potassium Chloride Carbon Dioxide BUN Creatinine Glucose POC Glucose 153 H 166 H Hemoglobin A1c Lactic Acid Calcium Total Bilirubin Alkaline Phosphatase Troponin T Total Protein Albumin HDL Cholesterol Urine Creatinine Crossmatch 12/06/16 12/06/16 12/06/16 06:00 06:00 11:32 WBC 18.1 H RBC 2.76 L Hgb 7.7 L Hct 23.4 L MCV MCH MCHC RDW 16.6 H Plt Count 62 L Lymph % (Auto) [place] % (Auto) Lymph # Dunn # Seg Neutrophils % Seg Neuts % (Manual) 96.0 H Lymphocytes % (Manual) 0 L Monocytes % (Manual) Seg Neutrophils # Seg Neutrophils # Man 17.4 H Lymphocytes # (Manual) 0.0 L Monocytes # (Manual) PT INR APTT Heparin Anti-Xa Level POC ABG pH POC ABG pCO2 POC ABG pO2 Sodium 134 L Potassium Chloride 96.8 L Carbon Dioxide 19 L BUN 117 H Creatinine 4.9 H Glucose 179 H POC Glucose 300 H Hemoglobin A1c Lactic Acid Calcium 8.0 L Total Bilirubin Alkaline Phosphatase Troponin T Total Protein Albumin HDL Cholesterol Urine Creatinine Crossmatch 12/06/16 12/06/16 12/06/16 11:33 18:11 23:23 WBC RBC Hgb Hct MCV MCH MCHC RDW Plt Count Lymph % (Auto) [place] % (Auto) Lymph # [place] # Seg Neutrophils % Seg Neuts % (Manual) Lymphocytes % (Manual) Monocytes % (Manual) Seg Neutrophils # Seg Neutrophils # Man Lymphocytes # (Manual) Monocytes # (Manual) PT INR APTT Heparin Anti-Xa Level POC ABG pH POC ABG pCO2 POC ABG pO2 Sodium Potassium Chloride Carbon Dioxide BUN Creatinine Glucose POC Glucose 204 H 246 H 225 H Hemoglobin A1c Lactic Acid Calcium Total Bilirubin Alkaline Phosphatase Troponin T Total Protein Albumin HDL Cholesterol Urine Creatinine Crossmatch 12/07/16 12/07/16 12/07/16 04:50 05:19 05:40 WBC 15.6 H RBC 2.71 L Hgb 7.4 L Hct 22.6 L MCV 83 L MCH 27 L MCHC RDW 16.2 H Plt Count 61 L Lymph % (Auto) [place] % (Auto) Lymph # Dunn # Seg Neutrophils % Seg Neuts % (Manual) 97.0 H Lymphocytes % (Manual) 0 L Monocytes % (Manual) Seg Neutrophils # Seg Neutrophils # Man 15.1 H Lymphocytes # (Manual) 0.0 L Monocytes # (Manual) PT INR APTT Heparin Anti-Xa Level POC ABG pH POC ABG pCO2 31.3 L POC ABG pO2 Sodium Potassium Chloride Carbon Dioxide BUN Creatinine Glucose POC Glucose 238 H Hemoglobin A1c Lactic Acid Calcium Total Bilirubin Alkaline Phosphatase Troponin T Total Protein Albumin HDL Cholesterol Urine Creatinine Crossmatch 12/07/16 12/07/16 12/07/16 05:40 11:43 16:09 WBC RBC Hgb Hct MCV MCH MCHC RDW Plt Count Lymph % (Auto) [place] % (Auto) Lymph # [place] # Seg Neutrophils % Seg Neuts % (Manual) Lymphocytes % (Manual) Monocytes % (Manual) Seg Neutrophils # Seg Neutrophils # Man Lymphocytes # (Manual) Monocytes # (Manual) PT INR APTT Heparin Anti-Xa Level POC ABG pH POC ABG pCO2 POC ABG pO2 Sodium 136 L Potassium Chloride Carbon Dioxide 19 L BUN 122 H Creatinine 5.1 H Glucose 226 H POC Glucose 312 H Hemoglobin A1c Lactic Acid Calcium 7.9 L Total Bilirubin Alkaline Phosphatase Troponin T Total Protein Albumin HDL Cholesterol Urine Creatinine Crossmatch See Detail 12/07/16 12/07/16 12/07/16 16:09 17:27 17:31 WBC RBC Hgb 7.0 L Hct 21.0 L MCV MCH MCHC RDW Plt Count Lymph % (Auto) [place] % (Auto) Lymph # [place] # Seg Neutrophils % Seg Neuts % (Manual) Lymphocytes % (Manual) Monocytes % (Manual) Seg Neutrophils # Seg Neutrophils # Man Lymphocytes # (Manual) Monocytes # (Manual) PT INR APTT Heparin Anti-Xa Level POC ABG pH POC ABG pCO2 POC ABG pO2 Sodium Potassium Chloride Carbon Dioxide BUN Creatinine Glucose POC Glucose 312 H 242 H Hemoglobin A1c Lactic Acid Calcium Total Bilirubin Alkaline Phosphatase Troponin T Total Protein Albumin HDL Cholesterol Urine Creatinine Crossmatch 12/07/16 12/08/16 12/08/16 23:52 04:00 04:00 WBC 13.2 H RBC 2.50 L Hgb 7.0 L Hct 21.1 L MCV MCH MCHC RDW 16.8 H Plt Count 44 L Lymph % (Auto) 1.5 L [place] % (Auto) 9.1 H Lymph # 0.2 L Dunn # 1.2 H Seg Neutrophils % 88.6 H Seg Neuts % (Manual) Lymphocytes % (Manual) Monocytes % (Manual) Seg Neutrophils # 11.7 H Seg Neutrophils # Man Lymphocytes # (Manual) Monocytes # (Manual) PT INR APTT Heparin Anti-Xa Level POC ABG pH POC ABG pCO2 POC ABG pO2 Sodium Potassium Chloride Carbon Dioxide 21 L BUN 127 H Creatinine 5.0 H Glucose 148 H POC Glucose 173 H Hemoglobin A1c Lactic Acid Calcium 8.2 L Total Bilirubin 2.00 H Alkaline Phosphatase 132 H Troponin T Total Protein 5.6 L Albumin 2.6 L HDL Cholesterol Urine Creatinine Crossmatch 12/08/16 05:34 WBC RBC Hgb Hct MCV MCH MCHC RDW Plt Count Lymph % (Auto) [place] % (Auto) Lymph # [place] # Seg Neutrophils % Seg Neuts % (Manual) Lymphocytes % (Manual) Monocytes % (Manual) Seg Neutrophils # Seg Neutrophils # Man Lymphocytes # (Manual) Monocytes # (Manual) PT INR APTT Heparin Anti-Xa Level POC ABG pH POC ABG pCO2 POC ABG pO2 Sodium Potassium Chloride Carbon Dioxide BUN Creatinine Glucose POC Glucose 134 H Hemoglobin A1c Lactic Acid Calcium Total Bilirubin Alkaline Phosphatase Troponin T Total Protein Albumin HDL Cholesterol Urine Creatinine Crossmatch
--- NOTE | 2016-12-08 08:51 | XRay Report ---
Portable chest: Respiratory failure. There is enlargement of the heart. No vascular congestion appreciated. No pulmonary infiltrates. No pleural effusions. An ICD present. Endotracheal tube and nasogastric tube in good positions. No significant change compared to prior study of December 07. Impression: Cardiomegaly with no acute finding.
--- NOTE | 2016-12-08 09:08 | Progress Note ---
Assessment and Plan Suspect that AICD interrogation was inaccurate - will proceed with treatment of cardiac arrest as originally suspected. Pt is not currently a candidate for systemic anticoagulation in regards to underlying AFib/AFlutter d/t anemia and thrombocytopenia. Cont present cardiac regimen. Consider ischemic evaluation once medically stabilized and once AMS improves. The patient has been seen in conjunction with Dr. BREEZY Hale who agrees with the assessment and plan of care. - Patient Problems (1) Hx-sudden cardiac arrest Current Visit: Yes Status: Acute (2) Abnormal EKG Current Visit: Yes Status: Acute (3) Bilateral leg ulcer Current Visit: Yes Status: Chronic Qualifiers: Non-pressure ulcer stage: N (4) Chest pain Current Visit: Yes Status: Chronic Qualifiers: Chest pain type: C Ischemic chest pain type: I (5) Shortness of breath Current Visit: Yes Status: Chronic (6) Wound infection Current Visit: Yes Status: Chronic (7) Acute on chronic renal failure Current Visit: No Status: Acute Qualifiers: Acute renal failure type: A Chronic kidney disease stage: C (8) Acute on chronic systolic heart failure Current Visit: No Status: Acute (9) COPD exacerbation Current Visit: No Status: Acute (10) Dehydration Current Visit: No Status: Acute (11) CAD (coronary artery disease) Current Visit: No Status: Chronic Qualifiers: Coronary Disease-Associated Artery/Lesion type: C [place] vs. transplanted heart: N Associated angina: A (12) Diabetes Current Visit: No Status: Chronic Qualifiers: Diabetes mellitus type: D Diabetes mellitus complication status: D Diabetes mellitus complication detail: D Diabetic retinopathy severity: D Proliferative retinopathy type: P Diabetes mellitus macular edema: D Diabetes mellitus fdc insulin use: D Laterality: L Chronic kidney disease stage: C (13) Hx of CABG Current Visit: No Status: Chronic (14) Ischemic cardiomyopathy Current Visit: No Status: Chronic (15) PAD (peripheral artery disease) Current Visit: No Status: Chronic (16) S/P implantation of automatic cardioverter/defibrillator (AICD) Current Visit: No Status: Chronic (17) Mitral regurgitation Current Visit: Yes Status: Chronic Qualifiers: Cardiac valve disease etiology: C (18) Tricuspid valve regurgitation Current Visit: Yes Status: Chronic Qualifiers: Cardiac valve disease etiology: C (19) Pulmonary hypertension Current Visit: Yes Status: Chronic Subjective Date of service: 12/08/16 Principal diagnosis: bilateral leg wounds; TREMAINE Interval history: Pt resting in bed, off sedation and responding intermittently to commands. Remains intubated. Off pressors. No family at bedside. Went for head CT this AM. Objective Last Vital Signs Temp 97.1 F L 12/08/16 04:00 Pulse 105 H 12/08/16 08:16 Resp 18 12/08/16 08:16 BP 121/61 12/08/16 08:16 Pulse Ox 100 12/08/16 07:40 - Physical Examination General: Other ( Intubated, Mild response to commands) HEENT: Positive: Normocephaly, Mucus Membranes Moist, Other (Pupils: reacting to light.) Neck: Positive: neck supple, trachea midline Cardiac: Positive: Reg Rate and Rhythm, S1/S2 Lungs: Positive: Rhonchi, Oxygen, Ventilated Respirations Neuro: Positive: Other (Arousable, Minimal response to commands.) Abdomen: Positive: Soft, Active Bowel Sounds Skin: Positive: Clear, Other (Multiple ulcers in the legs - Dressing in situ.). Negative: Rash Musculoskeletal: other (Dressing in situ (multiple ulcers in the legs).) Extremities: Present: +1 Edema. Absent: lower extr. pulses - Labs and Meds Cardiac Enzymes 12/08/16 Range/Units 04:00 AST 35 (5-40) units/L CBC 12/07/16 12/08/16 Range/Units 16:09 04:00 WBC 13.2 H (4.5-11.0) K/mm3 RBC 2.50 L (3.65-5.03) M/mm3 Hgb 7.0 L 7.0 L (11.8-15.2) gm/dl Hct 21.0 L 21.1 L (35.5-45.6) % Plt Count 44 L (140-440) K/mm3 Lymph # 0.2 L (1.2-5.4) K/mm3 [place] # 1.2 H (0.0-0.8) K/mm3 Eos # 0.1 (0.0-0.4) K/mm3 Baso # 0.0 (0.0-0.1) K/mm3 Comprehensive Metabolic Panel 12/08/16 Range/Units 04:00 Carbon Dioxide 21 L (22-30) mmol/L BUN 127 H (9-20) mg/dL Creatinine 5.0 H (0.8-1.5) mg/dL Glucose 148 H (75-100) mg/dL Calcium 8.2 L (8.4-10.2) mg/dL AST 35 (5-40) units/L ALT 37 (7-56) units/L Alkaline Phosphatase 132 H (35-129) units/L Total Protein 5.6 L (6.3-8.2) g/dL Albumin 2.6 L (3.9-5) g/dL - Imaging and Cardiology EKG: report reviewed, image reviewed Echo: report reviewed, image reviewed
[2016-12-08] MEDS ORDERED: NACL 0.9% 500 ML 500 ML IV ONE (09:21)
--- NOTE | 2016-12-08 09:31 | Gastroenterology Consultation ---
History of Present Illness - Reason for Consult Consult date: 12/08/16 melena Requesting physician: ALDEN MASON - History of Present Illness Mr Burgess is a 71 yo aam who presented on 11/28 with volume overload and LE ulcers. Patient had cardiac arrest during hospital course, and is currently intubated/sedated. History gathered primarily from chart review. Patient is off pressors. He started having episodes of black liquid bm's yesterday which has continued overnight. He has had a drop in hct, along with worsening thrombocytopenia. No known h/o liver disease, PUD, or prior GI bleeding. Past History Past Medical History: CAD, diabetes, hypertension, hyperlipidemia, PVD, renal failure (not presently on hemodialysis) Past Surgical History: CABG (1996), Other (AICD placement, [facility] 1996) Social history: lives with family, full code. denies: smoking (quit x20 years, ), alcohol abuse, prescription drug abuse Family history: CAD, cancer, diabetes, hypertension Medications and Allergies Allergies Allergy/AdvReac Type Severity Reaction Status Date / Time lisinopril Allergy Mild Unknown Verified 08/08/14 11:26 pollen extracts AdvReac COUGH,SNEEZ Unverified 11/28/16 13:22 E Home Medications Medication Instructions Recorded Confirmed Last Taken Type Carvedilol [Coreg] 25 mg PO BID 08/21/13 12/05/16 11/28/16 History Doxazosin Mesylate 8 mg PO DAILY 08/21/13 12/05/16 11/28/16 History Insulin Glargine,Hum.rec.anlog 30 unit PO QDAY 08/21/13 12/05/16 05/28/14 History [Lantus Solostar] Isosorbide Dinitrate 30 mg PO DAILY 08/21/13 12/05/16 11/28/16 History Ranolazine [Ranexa] 1,000 mg PO BID 08/21/13 12/05/16 11/28/16 History Atorvastatin Calcium [Lipitor] 40 mg PO DAILY 12/25/13 12/05/16 11/28/16 History amLODIPine [Norvasc] 5 mg PO DAILY 03/27/14 12/05/16 11/28/16 History Epoetin Shorty [Procrit] 4,000 unit SQ QMONTH 0212/05/16 08/04/14 History 4000 units Multivitamin [Multi-Vitamin Daily] 1 tab PO DAILY 08/08/14 12/05/16 11/28/16 History Albuterol Sulfate [Proventil HFA] 2 puff IH Q4H PRN #1 pump 08/13/14 12/05/16 Unknown Rx Insulin Aspart [NovoLOG 100 5 unit SQ AC #1 vial 08/13/14 12/05/16 Unknown Rx UNITS/ML] Metolazone 5 mg PO DAILY 30 Days 08/13/14 12/05/16 11/28/16 Rx Active Meds: Active Medications Acetaminophen (Tylenol) 650 mg PO Q4H PRN PRN Reason: Pain MILD(1-3)/Fever >100.5/DANG Last Admin: 11/28/16 18:51 Dose: 650 mg Albuterol (Proventil) 2.5 mg IH Q4HRT PRN PRN Reason: Shortness Of Breath Last Admin: 12/04/16 15:02 Dose: 2.5 mg Lipase/Protease/Amylase (Pancreaze Dr 10,500 Unit) 1 each FEEDTUBE PRN PRN PRN Reason: For Clogged Feeding Tube Atorvastatin Calcium (Lipitor) 40 mg PO QHS KYLAH Last Admin: 12/07/16 22:28 Dose: 40 mg Bisacodyl (Dulcolax) 10 mg NM QDAY PRN PRN Reason: Constipation unrelieved by MOM Dextrose (D50w (25gm)) 50 ml IV PRN PRN PRN Reason: Hypoglycemia Last Admin: 12/03/16 06:30 Dose: 50 ml Fentanyl (Sublimaze) 50 mcg IV Q2H PRN PRN Reason: Sedation Last Admin: 12/08/16 07:47 Dose: 50 mcg Norepinephrine (Levophed Drip 4 Mg/Ns 250 Ml) 4 mg in 250 mls @ 7.5 mls/hr IV TITR KYLAH; 2 MCG/MIN PRN Reason: Protocol Last Titration: 12/06/16 08:19 Dose: 0 mcg/min, 0 mls/hr Ceftriaxone Sodium (Rocephin/Ns 1 Gm/50 Ml) 1 gm in 50 mls @ 100 mls/hr IV Q24H KYLAH Stop: 12/09/16 23:59 Last Admin: 12/07/16 17:45 Dose: 100 mls/hr Sodium Chloride (Nacl 0.9%) 100 mls @ 999 mls/hr IV MAYELIN PRN PRN Reason: Hypotension Insulin Aspart (Novolog) 0 units SUB-Q Q6HR KYLAH PRN Reason: Protocol Last Admin: 12/08/16 00:00 Dose: Not Given Insulin Detemir (Levemir) 20 units SUB-Q DAILY [facility] Last Admin: 12/07/16 11:51 Dose: 20 units Lorazepam (Ativan) 1 mg IV Q4H PRN PRN Reason: Sedation Last Admin: 12/08/16 03:58 Dose: 1 mg Neomycin/Polymyxin/Bacitracin (Triple Antibiotic) 1 applic TP DAILY [facility] Last Admin: 12/07/16 10:39 Dose: 1 applic Ondansetron HCl (Zofran) 4 mg IV Q8H PRN PRN Reason: Nausea And Vomiting Last Admin: 12/01/16 17:45 Dose: 4 mg Pantoprazole Sodium (Protonix) 40 mg IV BID [facility] Last Admin: 12/07/16 22:48 Dose: 40 mg Simple Syrup (Simple Syrup) 15 ml FEEDTUBE PRN PRN PRN Reason: Hypoglycemia Simple Syrup (Simple Syrup) 30 ml FEEDTUBE PRN PRN PRN Reason: Hypoglycemia Sodium Bicarbonate (Sodium Bicarbonate) 325 mg FEEDTUBE PRN PRN PRN Reason: For Clogged Feeding Tube Sodium Hypochlorite (Dakin's Half Strength) 1 applic TP BID [facility] Last Admin: 12/07/16 22:43 Dose: 1 applicatio Review of Systems - Review of Systems ROS unobtainable: due to mental status Exam - Exam Narrative Exam: Gen: intubated/sedated Head: nct/at Eyes: anicteric Mouth: intubated, dry mucous membranes CV: RRR, no murmurs Lungs: coarse bs bilaterally, non labored Abd: soft, nd, +bs Ext: + edema - Constitutional Vital Signs: Temp Pulse Resp BP Pulse Ox 97.4 F L 105 H 18 121/61 100 12/08/16 08:00 12/08/16 08:16 12/08/16 08:16 12/08/16 08:16 12/08/16 07:40 - Labs CBC & Chem 7: 12/08/16 04:00 12/08/16 04:00 Lab Results: Laboratory Results - last 24 hr 12/07/16 12/07/16 12/07/16 11:43 16:09 16:09 WBC RBC Hgb 7.0 L Hct 21.0 L MCV MCH MCHC RDW Plt Count Lymph % (Auto) [place] % (Auto) Eos % (Auto) Baso % (Auto) Lymph # [place] # Eos # Baso # Seg Neutrophils % Seg Neutrophils # Carbon Dioxide BUN Creatinine Estimated GFR BUN/Creatinine Ratio Glucose POC Glucose 312 H Calcium Magnesium Total Bilirubin AST ALT Alkaline Phosphatase Total Protein Albumin Albumin/Globulin Ratio Blood Type B POSITIVE Antibody Screen TNR RHONDA Antibody Screen Negative Crossmatch See Detail 12/07/16 12/07/16 12/07/16 17:27 17:31 23:52 WBC RBC Hgb Hct MCV MCH MCHC RDW Plt Count Lymph % (Auto) [place] % (Auto) Eos % (Auto) Baso % (Auto) Lymph # [place] # Eos # Baso # Seg Neutrophils % Seg Neutrophils # Carbon Dioxide BUN Creatinine Estimated GFR BUN/Creatinine Ratio Glucose POC Glucose 312 H 242 H 173 H Calcium Magnesium Total Bilirubin AST ALT Alkaline Phosphatase Total Protein Albumin Albumin/Globulin Ratio Blood Type Antibody Screen RHONDA Antibody Screen Crossmatch 12/08/16 12/08/16 12/08/16 04:00 04:00 05:34 WBC 13.2 H RBC 2.50 L Hgb 7.0 L Hct 21.1 L MCV 85 MCH 28 MCHC 33 RDW 16.8 H Plt Count 44 L Lymph % (Auto) 1.5 L [place] % (Auto) 9.1 H Eos % (Auto) 0.7 Baso % (Auto) 0.1 Lymph # 0.2 L [place] # 1.2 H Eos # 0.1 Baso # 0.0 Seg Neutrophils % 88.6 H Seg Neutrophils # 11.7 H Carbon Dioxide 21 L BUN 127 H Creatinine 5.0 H Estimated GFR 14 BUN/Creatinine Ratio 25.40 Glucose 148 H POC Glucose 134 H Calcium 8.2 L Magnesium 2.10 Total Bilirubin 2.00 H AST 35 ALT 37 Alkaline Phosphatase 132 H Total Protein 5.6 L Albumin 2.6 L Albumin/Globulin Ratio 0.9 Blood Type Antibody Screen RHONDA Antibody Screen Crossmatch Assessment and Plan 1. melena 2. cardiac arrest s/p ROSC 3. respiratory failure 4. renal failure 5. Sepsis 6. thrombocytopenia -will plan for EGD at bedside today. Transfuse plat with goal of > 50 k given bleeding. Cont PPI IV. Further recommendations following procedure.
[2016-12-08 09:48] LABS: Hematocrit 21.4 % (35.5-45.6); Hemoglobin 6.9 gm/dl (11.8-15.2)
[2016-12-08] MEDS: NOVOLOG SUB-Q SCH ×4 (10:05→17:59)
[2016-12-08] MEDS ORDERED: INFANTS' GAS RELIEF PO ONE (10:35)
[2016-12-08] MEDS ORDERED: NACL 0.9% 1000 ML 1,000 ML ONE (10:35)
[2016-12-08] MEDS ORDERED: ADRENALIN ONE (10:35)
[2016-12-08] MEDS ORDERED: SUBLIMAZE IV ONE (10:54)
[2016-12-08] MEDS ORDERED: VERSED IV NR (11:00)
--- NOTE | 2016-12-08 11:00 | Consultation ---
History of Present Illness Consult date: 12/08/16 Requesting physician: GARCIA GOODRICH Reason for Consult: cardiac arrest Chief complaint: AMS limits direct hx History of present illness: 71 YO M a/w CHF/acute resp failure, TREMAINE, lower GIB and sepsis d/t infected ulcers c/b cardiac arrest on 12/02. He has not received continuous sedation in at least 48 hrs. Sx of AMS are constant but somewhat improved per nursing. There are no clear aggravating, relieving or temporal factors. Severity is such to limit ADLs. Past History Past Medical History: CAD, diabetes, hypertension, hyperlipidemia, PVD, renal failure (not presently on hemodialysis) Past Surgical History: CABG (1996), Other (AICD placement, back sugery 1996) Social history: lives with family, full code. denies: smoking (quit x20 years, ), alcohol abuse, prescription drug abuse Family history: CAD, cancer, diabetes, hypertension Medications and Allergies Allergies Allergy/AdvReac Type Severity Reaction Status Date / Time lisinopril Allergy Mild Unknown Verified 08/08/14 11:26 pollen extracts AdvReac COUGH,SNEEZ Unverified 11/28/16 13:22 E Home Medications Medication Instructions Recorded Confirmed Last Taken Type Carvedilol [Coreg] 25 mg PO BID 08/21/13 12/05/16 11/28/16 History Doxazosin Mesylate 8 mg PO DAILY 08/21/13 12/05/16 11/28/16 History Insulin Glargine,Hum.rec.anlog 30 unit PO QDAY 08/21/13 12/05/16 05/28/14 History [Lantus Solostar] Isosorbide Dinitrate 30 mg PO DAILY 08/21/13 12/05/16 11/28/16 History Ranolazine [Ranexa] 1,000 mg PO BID 08/21/13 12/05/16 11/28/16 History Atorvastatin Calcium [Lipitor] 40 mg PO DAILY 12/25/13 12/05/16 11/28/16 History amLODIPine [Norvasc] 5 mg PO DAILY 03/27/14 12/05/16 11/28/16 History Epoetin Shorty [Procrit] 4,000 unit SQ QMONTH 02/27/15 06/26/17 02/23/15 History 4000 units Multivitamin [Multi-Vitamin Daily] 1 tab PO DAILY 08/08/14 12/05/16 11/28/16 History Albuterol Sulfate [Proventil HFA] 2 puff IH Q4H PRN #1 pump 08/13/14 12/05/16 Unknown Rx Insulin Aspart [NovoLOG 100 5 unit SQ AC #1 vial 08/13/14 12/05/16 Unknown Rx UNITS/ML] Metolazone 5 mg PO DAILY 30 Days 08/13/14 12/05/16 11/28/16 Rx Active Meds: Active Medications Acetaminophen (Tylenol) 650 mg PO Q4H PRN PRN Reason: Pain MILD(1-3)/Fever >100.5/DANG Last Admin: 11/28/16 18:51 Dose: 650 mg Albuterol (Proventil) 2.5 mg IH Q4HRT PRN PRN Reason: Shortness Of Breath Last Admin: 12/04/16 15:02 Dose: 2.5 mg Lipase/Protease/Amylase (Pancreaze Dr 10,500 Unit) 1 each FEEDTUBE PRN PRN PRN Reason: For Clogged Feeding Tube Atorvastatin Calcium (Lipitor) 40 mg PO QHS KYLAH Last Admin: 12/07/16 22:28 Dose: 40 mg Bisacodyl (Dulcolax) 10 mg WI QDAY PRN PRN Reason: Constipation unrelieved by MOM Dextrose (D50w (25gm)) 50 ml IV PRN PRN PRN Reason: Hypoglycemia Last Admin: 12/03/16 06:30 Dose: 50 ml Fentanyl (Sublimaze) 50 mcg IV Q2H PRN PRN Reason: Sedation Last Admin: 12/08/16 10:35 Dose: 50 mcg Fentanyl (Sublimaze) 100 mcg IV ONCE ONE Stop: 12/08/16 10:55 Norepinephrine (Levophed Drip 4 Mg/Ns 250 Ml) 4 mg in 250 mls @ 7.5 mls/hr IV TITR KYLAH; 2 MCG/MIN PRN Reason: Protocol Last Titration: 12/06/16 08:19 Dose: 0 mcg/min, 0 mls/hr Ceftriaxone Sodium (Rocephin/Ns 1 Gm/50 Ml) 1 gm in 50 mls @ 100 mls/hr IV Q24H KYLAH Stop: 12/09/16 23:59 Last Admin: 12/07/16 17:45 Dose: 100 mls/hr Sodium Chloride (Nacl 0.9%) 100 mls @ 999 mls/hr IV MAYELIN PRN PRN Reason: Hypotension Insulin Aspart (Novolog) 0 units SUB-Q Q6HR KYLAH PRN Reason: Protocol Last Admin: 12/08/16 10:05 Dose: Not Given Insulin Detemir (Levemir) 20 units SUB-Q DAILY [facility] Last Admin: 12/07/16 11:51 Dose: 20 units Lorazepam (Ativan) 1 mg IV Q4H PRN PRN Reason: Sedation Last Admin: 12/08/16 03:58 Dose: 1 mg Midazolam HCl (Versed) 5 mg IV ONCE NR Neomycin/Polymyxin/Bacitracin (Triple Antibiotic) 1 applic TP DAILY [facility] Last Admin: 12/07/16 10:39 Dose: 1 applic Ondansetron HCl (Zofran) 4 mg IV Q8H PRN PRN Reason: Nausea And Vomiting Last Admin: 12/01/16 17:45 Dose: 4 mg Pantoprazole Sodium (Protonix) 40 mg IV BID [facility] Last Admin: 12/07/16 22:48 Dose: 40 mg Simple Syrup (Simple Syrup) 15 ml FEEDTUBE PRN PRN PRN Reason: Hypoglycemia Simple Syrup (Simple Syrup) 30 ml FEEDTUBE PRN PRN PRN Reason: Hypoglycemia Sodium Bicarbonate (Sodium Bicarbonate) 325 mg FEEDTUBE PRN PRN PRN Reason: For Clogged Feeding Tube Sodium Hypochlorite (Dakin's Half Strength) 1 applic TP BID [facility] Last Admin: 12/07/16 22:43 Dose: 1 applicatio Review of Systems ROS unobtainable: due to endotracheal tube, due to mental status Physical Examination - Vital Signs Vital Signs: Vital Signs Pulse Ox 97 11/28/16 14:06 - Constitutional General appearance: acutely ill, chronically ill - EENT EENT: Present: ATNC, PERRL, mucous membranes dry, hearing intact, vision intact - Respiratory Respiratory: Present: chest non-tender, no respiratory distress, decreased breath sounds - Cardiovascular Cardiovascular: Present: regular rate Extremities: Present: no peripheral edema bilatateraly, no clubbing, cyanosis, no inflammation, no ischemia or petechiae - Gastrointestinal Gastrointestinal: Present: normoactive bowel sounds, soft, non-distended - Integumentary Integumentary: Present: normal - Neurologic Cranial nerve examination: PERRL, EOMI, V1/V2/V3 grossly intact, face symmetric , tongue midline, intact, intact gag reflex, Intact Vestibulo-ocular r, intact corneal reflex Speech examination: other (follows commands, no speech d/t intubation) Detailed motor examination: grossly full strength in, other (localizes pain in UE, withdraws LE) Motor examination - right side: 4/5: biceps, triceps, wrist flexion, wrist extension, fabric worker, hip flexors, knee extensors, dorsiflexion, toe extension (EHL) , plantarflexion Motor examination - left side: 4/5: biceps, triceps, wrist flexion, wrist extension, fabric worker, hip flexors, knee extensors, dorsiflexion, toe extension (EHL) , plantarflexion Detailed sensory examination: intact, pain Reflexes: 0: ankle, 2+: bicep, knee, tricep - Musculoskeletal Musculoskeletal: Present: no fluid collection, no pain, normal range of motion - Psychiatric Psychiatric: Present: cooperative Results - Laboratory Findings CBC and BMP: 12/08/16 09:20 12/08/16 04:00 Abnormal Lab Findings: Abnormal Labs 11/28/16 11/28/16 11/28/16 14:16 16:02 16:02 WBC RBC Hgb Hct MCV MCH MCHC RDW Plt Count Lymph % (Auto) Emm[place] % (Auto) Lymph # [place] # Seg Neutrophils % Seg Neuts % (Manual) Lymphocytes % (Manual) Monocytes % (Manual) Seg Neutrophils # Seg Neutrophils # Man Lymphocytes # (Manual) Monocytes # (Manual) PT 17.3 H INR 1.42 H APTT 38.0 H Heparin Anti-Xa Level POC ABG pH POC ABG pCO2 POC ABG pO2 Sodium Potassium 3.3 L Chloride 96.0 L Carbon Dioxide BUN 100 H Creatinine 3.4 H Glucose 235 H POC Glucose 500 H Hemoglobin A1c Lactic Acid Calcium Total Bilirubin Alkaline Phosphatase Troponin T Total Protein Albumin HDL Cholesterol Urine Creatinine Crossmatch 11/28/16 11/28/16 11/29/16 16:02 21:30 05:50 WBC RBC Hgb Hct MCV MCH MCHC RDW Plt Count Lymph % (Auto) [place] % (Auto) Lymph # [place] # Seg Neutrophils % Seg Neuts % (Manual) Lymphocytes % (Manual) Monocytes % (Manual) Seg Neutrophils # Seg Neutrophils # Man Lymphocytes # (Manual) Monocytes # (Manual) PT INR APTT Heparin Anti-Xa Level POC ABG pH POC ABG pCO2 POC ABG pO2 Sodium Potassium Chloride Carbon Dioxide BUN Creatinine Glucose POC Glucose 68 L 40 L Hemoglobin A1c 10.6 H Lactic Acid Calcium Total Bilirubin Alkaline Phosphatase Troponin T Total Protein Albumin HDL Cholesterol Urine Creatinine Crossmatch 11/29/16 11/29/16 11/29/16 06:33 08:37 08:37 WBC RBC Hgb 10.2 L Hct 30.9 L MCV MCH MCHC RDW 16.0 H Plt Count 104 L Lymph % (Auto) 2.4 L [place] % (Auto) 8.5 H Lymph # 0.2 L [place] # 0.9 H Seg Neutrophils % 89.0 H Seg Neuts % (Manual) Lymphocytes % (Manual) Monocytes % (Manual) Seg Neutrophils # 9.2 H Seg Neutrophils # Man Lymphocytes # (Manual) Monocytes # (Manual) PT INR APTT Heparin Anti-Xa Level POC ABG pH POC ABG pCO2 POC ABG pO2 Sodium Potassium Chloride Carbon Dioxide BUN 95 H Creatinine 2.9 H Glucose POC Glucose 57 L Hemoglobin A1c Lactic Acid Calcium Total Bilirubin Alkaline Phosphatase Troponin T Total Protein Albumin HDL Cholesterol Urine Creatinine Crossmatch 11/29/16 11/29/16 11/29/16 11:41 12:48 15:44 WBC RBC Hgb Hct MCV MCH MCHC RDW Plt Count Lymph % (Auto) [place] % (Auto) Lymph # [place] # Seg Neutrophils % Seg Neuts % (Manual) Lymphocytes % (Manual) Monocytes % (Manual) Seg Neutrophils # Seg Neutrophils # Man Lymphocytes # (Manual) Monocytes # (Manual) PT INR APTT Heparin Anti-Xa Level POC ABG pH POC ABG pCO2 POC ABG pO2 Sodium Potassium Chloride Carbon Dioxide BUN Creatinine Glucose POC Glucose 48 L 143 H 138 H Hemoglobin A1c Lactic Acid Calcium Total Bilirubin Alkaline Phosphatase Troponin T Total Protein Albumin HDL Cholesterol Urine Creatinine Crossmatch 11/29/16 11/29/16 11/30/16 21:04 22:26 06:11 WBC RBC Hgb Hct MCV MCH MCHC RDW Plt Count Lymph % (Auto) [place] % (Auto) Lymph # [place] # Seg Neutrophils % Seg Neuts % (Manual) Lymphocytes % (Manual) Monocytes % (Manual) Seg Neutrophils # Seg Neutrophils # Man Lymphocytes # (Manual) Monocytes # (Manual) PT INR APTT Heparin Anti-Xa Level POC ABG pH POC ABG pCO2 POC ABG pO2 Sodium Potassium Chloride Carbon Dioxide BUN Creatinine Glucose POC Glucose 49 L 165 H 121 H Hemoglobin A1c Lactic Acid Calcium Total Bilirubin Alkaline Phosphatase Troponin T Total Protein Albumin HDL Cholesterol Urine Creatinine Crossmatch 11/30/16 11/30/16 11/30/16 08:53 08:53 10:00 WBC RBC Hgb 10.9 L Hct 33.2 L MCV MCH MCHC RDW 16.3 H Plt Count 96 L Lymph % (Auto) [place] % (Auto) Lymph # [place] # Seg Neutrophils % Seg Neuts % (Manual) 91.0 H Lymphocytes % (Manual) 2.0 L Monocytes % (Manual) Seg Neutrophils # Seg Neutrophils # Man 9.3 H Lymphocytes # (Manual) 0.2 L Monocytes # (Manual) PT INR APTT Heparin Anti-Xa Level POC ABG pH POC ABG pCO2 POC ABG pO2 Sodium Potassium Chloride Carbon Dioxide BUN 78 H Creatinine 2.3 H Glucose 139 H POC Glucose Hemoglobin A1c Lactic Acid Calcium 8.3 L Total Bilirubin Alkaline Phosphatase Troponin T Total Protein Albumin HDL Cholesterol Urine Creatinine 78.6 H Crossmatch 11/30/16 11/30/16 11/30/16 11:23 17:43 20:23 WBC RBC Hgb Hct MCV MCH MCHC RDW Plt Count Lymph % (Auto) [place] % (Auto) Lymph # [place] # Seg Neutrophils % Seg Neuts % (Manual) Lymphocytes % (Manual) Monocytes % (Manual) Seg Neutrophils # Seg Neutrophils # Man Lymphocytes # (Manual) Monocytes # (Manual) PT INR APTT Heparin Anti-Xa Level POC ABG pH POC ABG pCO2 POC ABG pO2 Sodium Potassium Chloride Carbon Dioxide BUN Creatinine Glucose POC Glucose 169 H 57 L 69 L Hemoglobin A1c Lactic Acid Calcium Total Bilirubin Alkaline Phosphatase Troponin T Total Protein Albumin HDL Cholesterol Urine Creatinine Crossmatch 11/30/16 11/30/16 12/01/16 20:37 22:12 05:30 WBC RBC Hgb Hct MCV MCH MCHC RDW Plt Count Lymph % (Auto) [place] % (Auto) Lymph # [place] # Seg Neutrophils % Seg Neuts % (Manual) Lymphocytes % (Manual) Monocytes % (Manual) Seg Neutrophils # Seg Neutrophils # Man Lymphocytes # (Manual) Monocytes # (Manual) PT INR APTT Heparin Anti-Xa Level POC ABG pH POC ABG pCO2 POC ABG pO2 Sodium Potassium Chloride Carbon Dioxide BUN Creatinine Glucose POC Glucose 107 H 151 H Hemoglobin A1c Lactic Acid Calcium Total Bilirubin Alkaline Phosphatase Troponin T 0.033 H Total Protein Albumin HDL Cholesterol 36 L Urine Creatinine Crossmatch 12/01/16 12/01/16 12/01/16 07:39 07:39 11:48 WBC 12.9 H RBC Hgb 10.9 L Hct 33.2 L MCV MCH MCHC RDW 16.6 H Plt Count 94 L Lymph % (Auto) [place] % (Auto) Lymph # [place] # Seg Neutrophils % Seg Neuts % (Manual) 98.0 H Lymphocytes % (Manual) 0 L Monocytes % (Manual) Seg Neutrophils # Seg Neutrophils # Man 12.6 H Lymphocytes # (Manual) 0.0 L Monocytes # (Manual) PT INR APTT Heparin Anti-Xa Level POC ABG pH POC ABG pCO2 POC ABG pO2 Sodium Potassium Chloride Carbon Dioxide BUN 71 H Creatinine 2.1 H Glucose POC Glucose 193 H Hemoglobin A1c Lactic Acid Calcium 8.1 L Total Bilirubin Alkaline Phosphatase Troponin T Total Protein Albumin HDL Cholesterol Urine Creatinine Crossmatch 12/01/16 12/01/16 12/02/16 17:02 21:17 06:05 WBC RBC Hgb Hct MCV MCH MCHC RDW Plt Count Lymph % (Auto) [place] % (Auto) Lymph # [place] # Seg Neutrophils % Seg Neuts % (Manual) Lymphocytes % (Manual) Monocytes % (Manual) Seg Neutrophils # Seg Neutrophils # Man Lymphocytes # (Manual) Monocytes # (Manual) PT INR APTT Heparin Anti-Xa Level POC ABG pH POC ABG pCO2 POC ABG pO2 Sodium Potassium Chloride Carbon Dioxide BUN Creatinine Glucose POC Glucose 170 H 156 H < 40 L Hemoglobin A1c Lactic Acid Calcium Total Bilirubin Alkaline Phosphatase Troponin T Total Protein Albumin HDL Cholesterol Urine Creatinine Crossmatch 12/02/16 12/02/16 12/02/16 06:34 06:41 07:48 WBC RBC Hgb 10.2 L Hct 31.4 L MCV MCH 27 L MCHC RDW 16.3 H Plt Count 89 L Lymph % (Auto) Emm[place] % (Auto) Lymph # [place] # Seg Neutrophils % Seg Neuts % (Manual) 87.0 H Lymphocytes % (Manual) 7.0 L Monocytes % (Manual) Seg Neutrophils # Seg Neutrophils # Man 8.9 H Lymphocytes # (Manual) 0.7 L Monocytes # (Manual) PT INR APTT Heparin Anti-Xa Level POC ABG pH POC ABG pCO2 POC ABG pO2 Sodium Potassium Chloride Carbon Dioxide BUN Creatinine Glucose POC Glucose 141 H 124 H Hemoglobin A1c Lactic Acid Calcium Total Bilirubin Alkaline Phosphatase Troponin T Total Protein Albumin HDL Cholesterol Urine Creatinine Crossmatch 12/02/16 12/02/16 12/02/16 07:48 12:22 18:02 WBC RBC Hgb Hct MCV MCH MCHC RDW Plt Count Lymph % (Auto) [place] % (Auto) Lymph # [place] # Seg Neutrophils % Seg Neuts % (Manual) Lymphocytes % (Manual) Monocytes % (Manual) Seg Neutrophils # Seg Neutrophils # Man Lymphocytes # (Manual) Monocytes # (Manual) PT INR APTT Heparin Anti-Xa Level POC ABG pH POC ABG pCO2 POC ABG pO2 Sodium 136 L Potassium Chloride Carbon Dioxide BUN 75 H Creatinine 2.7 H Glucose POC Glucose < 40 L 53 L Hemoglobin A1c Lactic Acid Calcium 7.9 L Total Bilirubin Alkaline Phosphatase Troponin T Total Protein Albumin HDL Cholesterol Urine Creatinine Crossmatch 12/02/16 12/02/16 12/02/16 19:20 19:23 19:23 WBC 13.8 H RBC Hgb 10.9 L Hct 34.6 L MCV MCH 27 L MCHC 31 L RDW 16.2 H Plt Count 106 L Lymph % (Auto) [place] % (Auto) Lymph # [place] # Seg Neutrophils % Seg Neuts % (Manual) 86.0 H Lymphocytes % (Manual) 4.0 L Monocytes % (Manual) Seg Neutrophils # Seg Neutrophils # Man 11.9 H Lymphocytes # (Manual) 0.6 L Monocytes # (Manual) 1.0 H PT 16.6 H INR 1.27 H APTT 45.4 H Heparin Anti-Xa Level POC ABG pH POC ABG pCO2 POC ABG pO2 Sodium Potassium Chloride 95.8 L Carbon Dioxide BUN 75 H Creatinine 2.8 H Glucose 105 H POC Glucose Hemoglobin A1c Lactic Acid Calcium 7.8 L Total Bilirubin 2.70 H Alkaline Phosphatase Troponin T Total Protein 6.0 L Albumin 2.7 L HDL Cholesterol Urine Creatinine Crossmatch 12/02/16 12/02/16 12/03/16 19:39 21:14 01:15 WBC RBC Hgb Hct MCV MCH MCHC RDW Plt Count Lymph % (Auto) [place] % (Auto) Lymph # [place] # Seg Neutrophils % Seg Neuts % (Manual) Lymphocytes % (Manual) Monocytes % (Manual) Seg Neutrophils # Seg Neutrophils # Man Lymphocytes # (Manual) Monocytes # (Manual) PT INR APTT Heparin Anti-Xa Level < 0.10 L POC ABG pH 7.214 L POC ABG pCO2 54.0 H POC ABG pO2 227 H Sodium Potassium Chloride Carbon Dioxide BUN Creatinine Glucose POC Glucose 141 H Hemoglobin A1c Lactic Acid Calcium Total Bilirubin Alkaline Phosphatase Troponin T Total Protein Albumin HDL Cholesterol Urine Creatinine Crossmatch 12/03/16 12/03/16 12/03/16 04:15 05:15 06:04 WBC 45.9 H* RBC Hgb 10.5 L Hct 32.9 L MCV MCH 27 L MCHC RDW 16.6 H Plt Count 101 L Lymph % (Auto) [place] % (Auto) Lymph # [place] # Seg Neutrophils % Seg Neuts % (Manual) Lymphocytes % (Manual) 8.0 L Monocytes % (Manual) 8.0 H Seg Neutrophils # Seg Neutrophils # Man 31.2 H Lymphocytes # (Manual) Monocytes # (Manual) 3.7 H PT INR APTT Heparin Anti-Xa Level POC ABG pH POC ABG pCO2 POC ABG pO2 72 L Sodium Potassium Chloride Carbon Dioxide BUN Creatinine Glucose POC Glucose 50 L Hemoglobin A1c Lactic Acid Calcium Total Bilirubin Alkaline Phosphatase Troponin T Total Protein Albumin HDL Cholesterol Urine Creatinine Crossmatch 12/03/16 12/03/16 12/03/16 06:04 06:51 08:01 WBC RBC Hgb Hct MCV MCH MCHC RDW Plt Count Lymph % (Auto) [place] % (Auto) Lymph # [place] # Seg Neutrophils % Seg Neuts % (Manual) Lymphocytes % (Manual) Monocytes % (Manual) Seg Neutrophils # Seg Neutrophils # Man Lymphocytes # (Manual) Monocytes # (Manual) PT INR APTT Heparin Anti-Xa Level POC ABG pH POC ABG pCO2 POC ABG pO2 Sodium 128 L D Potassium 6.8 H* D Chloride 94.2 L Carbon Dioxide 17 L BUN 77 H Creatinine 2.6 H Glucose POC Glucose 118 H Hemoglobin A1c Lactic Acid Calcium 7.6 L Total Bilirubin Alkaline Phosphatase Troponin T 0.098 H Total Protein Albumin HDL Cholesterol Urine Creatinine Crossmatch 12/03/16 12/03/16 12/03/16 08:13 09:44 12:19 WBC RBC Hgb Hct MCV MCH MCHC RDW Plt Count Lymph % (Auto) [place] % (Auto) Lymph # [place] # Seg Neutrophils % Seg Neuts % (Manual) Lymphocytes % (Manual) Monocytes % (Manual) Seg Neutrophils # Seg Neutrophils # Man Lymphocytes # (Manual) Monocytes # (Manual) PT INR APTT Heparin Anti-Xa Level POC ABG pH POC ABG pCO2 POC ABG pO2 Sodium Potassium Chloride Carbon Dioxide BUN Creatinine Glucose POC Glucose 107 H 115 H Hemoglobin A1c Lactic Acid 3.40 H* Calcium Total Bilirubin Alkaline Phosphatase Troponin T Total Protein Albumin HDL Cholesterol Urine Creatinine Crossmatch 12/03/16 12/03/16 12/03/16 16:39 17:49 20:15 WBC 18.9 H RBC 3.04 L Hgb 8.4 L Hct 26.2 L MCV MCH MCHC RDW 16.6 H Plt Count 81 L Lymph % (Auto) [place] % (Auto) Lymph # [place] # Seg Neutrophils % Seg Neuts % (Manual) 94.0 H Lymphocytes % (Manual) 1.0 L Monocytes % (Manual) Seg Neutrophils # Seg Neutrophils # Man 17.8 H Lymphocytes # (Manual) 0.2 L Monocytes # (Manual) PT INR APTT Heparin Anti-Xa Level POC ABG pH POC ABG pCO2 POC ABG pO2 Sodium Potassium Chloride Carbon Dioxide BUN Creatinine Glucose POC Glucose 151 H Hemoglobin A1c Lactic Acid 3.10 H* Calcium Total Bilirubin Alkaline Phosphatase Troponin T Total Protein Albumin HDL Cholesterol Urine Creatinine Crossmatch 12/03/16 12/03/16 12/03/16 23:34 Unknown Unknown WBC 22.2 H RBC 3.16 L Hgb 8.6 L Hct 27.3 L MCV MCH 27 L MCHC 31 L RDW 16.9 H Plt Count 81 L Lymph % (Auto) [place] % (Auto) Lymph # [place] # Seg Neutrophils % Seg Neuts % (Manual) Lymphocytes % (Manual) Monocytes % (Manual) Seg Neutrophils # Seg Neutrophils # Man Lymphocytes # (Manual) Monocytes # (Manual) PT INR APTT Heparin Anti-Xa Level POC ABG pH POC ABG pCO2 POC ABG pO2 Sodium 132 L Potassium Chloride 95.8 L Carbon Dioxide 19 L BUN 93 H Creatinine 3.4 H Glucose 130 H POC Glucose 188 H Hemoglobin A1c Lactic Acid Calcium 7.4 L Total Bilirubin Alkaline Phosphatase Troponin T Total Protein Albumin HDL Cholesterol Urine Creatinine Crossmatch 12/04/16 12/04/16 12/04/16 04:57 05:45 06:00 WBC 17.8 H RBC 3.07 L Hgb 8.7 L Hct 26.1 L MCV MCH MCHC RDW 16.5 H Plt Count 93 L Lymph % (Auto) [place] % (Auto) Lymph # [place] # Seg Neutrophils % Seg Neuts % (Manual) 80.0 H Lymphocytes % (Manual) 7.0 L Monocytes % (Manual) Seg Neutrophils # Seg Neutrophils # Man 14.2 H Lymphocytes # (Manual) Monocytes # (Manual) 1.1 H PT INR APTT Heparin Anti-Xa Level POC ABG pH 7.277 L POC ABG pCO2 POC ABG pO2 198 H Sodium Potassium Chloride Carbon Dioxide BUN Creatinine Glucose POC Glucose 186 H Hemoglobin A1c Lactic Acid Calcium Total Bilirubin Alkaline Phosphatase Troponin T Total Protein Albumin HDL Cholesterol Urine Creatinine Crossmatch 12/04/16 12/04/16 12/04/16 06:00 07:23 11:50 WBC RBC Hgb Hct MCV MCH MCHC RDW Plt Count Lymph % (Auto) [place] % (Auto) Lymph # [place] # Seg Neutrophils % Seg Neuts % (Manual) Lymphocytes % (Manual) Monocytes % (Manual) Seg Neutrophils # Seg Neutrophils # Man Lymphocytes # (Manual) Monocytes # (Manual) PT INR APTT Heparin Anti-Xa Level POC ABG pH POC ABG pCO2 POC ABG pO2 Sodium 133 L Potassium Chloride 96.0 L Carbon Dioxide 18 L BUN 103 H Creatinine 3.6 H Glucose 190 H POC Glucose 187 H 190 H Hemoglobin A1c Lactic Acid Calcium 7.7 L Total Bilirubin Alkaline Phosphatase Troponin T Total Protein Albumin HDL Cholesterol Urine Creatinine Crossmatch 12/04/16 12/04/16 12/04/16 13:22 17:46 23:33 WBC RBC Hgb Hct MCV MCH MCHC RDW Plt Count Lymph % (Auto) [place] % (Auto) Lymph # [place] # Seg Neutrophils % Seg Neuts % (Manual) Lymphocytes % (Manual) Monocytes % (Manual) Seg Neutrophils # Seg Neutrophils # Man Lymphocytes # (Manual) Monocytes # (Manual) PT INR APTT Heparin Anti-Xa Level POC ABG pH POC ABG pCO2 POC ABG pO2 Sodium Potassium Chloride Carbon Dioxide BUN Creatinine Glucose POC Glucose 264 H 263 H Hemoglobin A1c Lactic Acid 2.60 H* Calcium Total Bilirubin Alkaline Phosphatase Troponin T Total Protein Albumin HDL Cholesterol Urine Creatinine Crossmatch 12/05/16 12/05/16 12/05/16 05:00 05:00 05:17 WBC 17.1 H RBC 3.03 L Hgb 8.2 L Hct 25.9 L MCV MCH 27 L MCHC RDW 16.4 H Plt Count 81 L Lymph % (Auto) 1.3 L [place] % (Auto) 9.7 H Lymph # 0.2 L [place] # 1.7 H Seg Neutrophils % 88.9 H Seg Neuts % (Manual) Lymphocytes % (Manual) Monocytes % (Manual) Seg Neutrophils # 15.2 H Seg Neutrophils # Man Lymphocytes # (Manual) Monocytes # (Manual) PT INR APTT Heparin Anti-Xa Level POC ABG pH POC ABG pCO2 POC ABG pO2 Sodium 132 L Potassium Chloride 96.9 L Carbon Dioxide 19 L BUN 120 H Creatinine 4.8 H Glucose 193 H POC Glucose 229 H Hemoglobin A1c Lactic Acid Calcium 8.0 L Total Bilirubin Alkaline Phosphatase Troponin T Total Protein Albumin HDL Cholesterol Urine Creatinine Crossmatch 12/05/16 12/05/16 12/05/16 06:00 11:46 17:53 WBC RBC Hgb Hct MCV MCH MCHC RDW Plt Count Lymph % (Auto) [place] % (Auto) Lymph # [place] # Seg Neutrophils % Seg Neuts % (Manual) Lymphocytes % (Manual) Monocytes % (Manual) Seg Neutrophils # Seg Neutrophils # Man Lymphocytes # (Manual) Monocytes # (Manual) PT INR APTT Heparin Anti-Xa Level POC ABG pH POC ABG pCO2 32.5 L POC ABG pO2 124 H Sodium Potassium Chloride Carbon Dioxide BUN Creatinine Glucose POC Glucose 139 H 170 H Hemoglobin A1c Lactic Acid Calcium Total Bilirubin Alkaline Phosphatase Troponin T Total Protein Albumin HDL Cholesterol Urine Creatinine Crossmatch 12/05/16 12/06/16 12/06/16 23:24 04:20 05:57 WBC RBC Hgb Hct MCV MCH MCHC RDW Plt Count Lymph % (Auto) [place] % (Auto) Lymph # [place] # Seg Neutrophils % Seg Neuts % (Manual) Lymphocytes % (Manual) Monocytes % (Manual) Seg Neutrophils # Seg Neutrophils # Man Lymphocytes # (Manual) Monocytes # (Manual) PT INR APTT Heparin Anti-Xa Level POC ABG pH POC ABG pCO2 30.3 L POC ABG pO2 122 H Sodium Potassium Chloride Carbon Dioxide BUN Creatinine Glucose POC Glucose 153 H 166 H Hemoglobin A1c Lactic Acid Calcium Total Bilirubin Alkaline Phosphatase Troponin T Total Protein Albumin HDL Cholesterol Urine Creatinine Crossmatch 12/06/16 12/06/16 12/06/16 06:00 06:00 11:32 WBC 18.1 H RBC 2.76 L Hgb 7.7 L Hct 23.4 L MCV MCH MCHC RDW 16.6 H Plt Count 62 L Lymph % (Auto) [place] % (Auto) Lymph # [place] # Seg Neutrophils % Seg Neuts % (Manual) 96.0 H Lymphocytes % (Manual) 0 L Monocytes % (Manual) Seg Neutrophils # Seg Neutrophils # Man 17.4 H Lymphocytes # (Manual) 0.0 L Monocytes # (Manual) PT INR APTT Heparin Anti-Xa Level POC ABG pH POC ABG pCO2 POC ABG pO2 Sodium 134 L Potassium Chloride 96.8 L Carbon Dioxide 19 L BUN 117 H Creatinine 4.9 H Glucose 179 H POC Glucose 300 H Hemoglobin A1c Lactic Acid Calcium 8.0 L Total Bilirubin Alkaline Phosphatase Troponin T Total Protein Albumin HDL Cholesterol Urine Creatinine Crossmatch 12/06/16 12/06/16 12/06/16 11:33 18:11 23:23 WBC RBC Hgb Hct MCV MCH MCHC RDW Plt Count Lymph % (Auto) [place] % (Auto) Lymph # [place] # Seg Neutrophils % Seg Neuts % (Manual) Lymphocytes % (Manual) Monocytes % (Manual) Seg Neutrophils # Seg Neutrophils # Man Lymphocytes # (Manual) Monocytes # (Manual) PT INR APTT Heparin Anti-Xa Level POC ABG pH POC ABG pCO2 POC ABG pO2 Sodium Potassium Chloride Carbon Dioxide BUN Creatinine Glucose POC Glucose 204 H 246 H 225 H Hemoglobin A1c Lactic Acid Calcium Total Bilirubin Alkaline Phosphatase Troponin T Total Protein Albumin HDL Cholesterol Urine Creatinine Crossmatch 12/07/16 12/07/16 12/07/16 04:50 05:19 05:40 WBC 15.6 H RBC 2.71 L Hgb 7.4 L Hct 22.6 L MCV 83 L MCH 27 L MCHC RDW 16.2 H Plt Count 61 L Lymph % (Auto) Emmet % (Auto) Lymph # Emmet # Seg Neutrophils % Seg Neuts % (Manual) 97.0 H Lymphocytes % (Manual) 0 L Monocytes % (Manual) Seg Neutrophils # Seg Neutrophils # Man 15.1 H Lymphocytes # (Manual) 0.0 L Monocytes # (Manual) PT INR APTT Heparin Anti-Xa Level POC ABG pH POC ABG pCO2 31.3 L POC ABG pO2 Sodium Potassium Chloride Carbon Dioxide BUN Creatinine Glucose POC Glucose 238 H Hemoglobin A1c Lactic Acid Calcium Total Bilirubin Alkaline Phosphatase Troponin T Total Protein Albumin HDL Cholesterol Urine Creatinine Crossmatch 12/07/16 12/07/16 12/07/16 05:40 11:43 16:09 WBC RBC Hgb Hct MCV MCH MCHC RDW Plt Count Lymph % (Auto) Emmet % (Auto) Lymph # Emmet # Seg Neutrophils % Seg Neuts % (Manual) Lymphocytes % (Manual) Monocytes % (Manual) Seg Neutrophils # Seg Neutrophils # Man Lymphocytes # (Manual) Monocytes # (Manual) PT INR APTT Heparin Anti-Xa Level POC ABG pH POC ABG pCO2 POC ABG pO2 Sodium 136 L Potassium Chloride Carbon Dioxide 19 L BUN 122 H Creatinine 5.1 H Glucose 226 H POC Glucose 312 H Hemoglobin A1c Lactic Acid Calcium 7.9 L Total Bilirubin Alkaline Phosphatase Troponin T Total Protein Albumin HDL Cholesterol Urine Creatinine Crossmatch See Detail 12/07/16 12/07/16 12/07/16 16:09 17:27 17:31 WBC RBC Hgb 7.0 L Hct 21.0 L MCV MCH MCHC RDW Plt Count Lymph % (Auto) Emmet % (Auto) Lymph # Emmet # Seg Neutrophils % Seg Neuts % (Manual) Lymphocytes % (Manual) Monocytes % (Manual) Seg Neutrophils # Seg Neutrophils # Man Lymphocytes # (Manual) Monocytes # (Manual) PT INR APTT Heparin Anti-Xa Level POC ABG pH POC ABG pCO2 POC ABG pO2 Sodium Potassium Chloride Carbon Dioxide BUN Creatinine Glucose POC Glucose 312 H 242 H Hemoglobin A1c Lactic Acid Calcium Total Bilirubin Alkaline Phosphatase Troponin T Total Protein Albumin HDL Cholesterol Urine Creatinine Crossmatch 12/07/16 12/08/16 12/08/16 23:52 04:00 04:00 WBC 13.2 H RBC 2.50 L Hgb 7.0 L Hct 21.1 L MCV MCH MCHC RDW 16.8 H Plt Count 44 L Lymph % (Auto) 1.5 L Emmet % (Auto) 9.1 H Lymph # 0.2 L Emmet # 1.2 H Seg Neutrophils % 88.6 H Seg Neuts % (Manual) Lymphocytes % (Manual) Monocytes % (Manual) Seg Neutrophils # 11.7 H Seg Neutrophils # Man Lymphocytes # (Manual) Monocytes # (Manual) PT INR APTT Heparin Anti-Xa Level POC ABG pH POC ABG pCO2 POC ABG pO2 Sodium Potassium Chloride Carbon Dioxide 21 L BUN 127 H Creatinine 5.0 H Glucose 148 H POC Glucose 173 H Hemoglobin A1c Lactic Acid Calcium 8.2 L Total Bilirubin 2.00 H Alkaline Phosphatase 132 H Troponin T Total Protein 5.6 L Albumin 2.6 L HDL Cholesterol Urine Creatinine Crossmatch 12/08/16 12/08/16 05:34 09:20 WBC RBC Hgb 6.9 L Hct 21.4 L MCV MCH MCHC RDW Plt Count Lymph % (Auto) Emmet % (Auto) Lymph # Emmet # Seg Neutrophils % Seg Neuts % (Manual) Lymphocytes % (Manual) Monocytes % (Manual) Seg Neutrophils # Seg Neutrophils # Man Lymphocytes # (Manual) Monocytes # (Manual) PT INR APTT Heparin Anti-Xa Level POC ABG pH POC ABG pCO2 POC ABG pO2 Sodium Potassium Chloride Carbon Dioxide BUN Creatinine Glucose POC Glucose 134 H Hemoglobin A1c Lactic Acid Calcium Total Bilirubin Alkaline Phosphatase Troponin T Total Protein Albumin HDL Cholesterol Urine Creatinine Crossmatch Assessment and Plan 71 YO M a/w CHF/acute resp failure, TREMAINE, lower GIB and sepsis d/t infected ulcers c/b cardiac arrest on 12/02. As current exam pt is drowsy, opens eyes, follows midline and peripheral commands and withdraws in all extremities equally , there is no clear indication for mod-severe hypoxic-ischemic encephalopathy that would confer poor neurologic prognosis (, unconsciousness after one month, or unconsciousness or severe disability after six months). 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 There is no clear new focality on neurologic examination to suggest acute DRAWING BOX TENDER process e.g. Stroke, Seizure or Meningitis. CTH neg. Recommendations: MRI Brain w/o Zackary to r/o acute DRAWING BOX TENDER lesion-unable to be done 2/2 PPM Check serum TSH/Ammonia and correct as necessary Cont Infectious work up/medical management for UTI, PNA, cellulitis, bacteremia , etc. Avoid hyponatremia,o/hyper-calcemia, hypo/hyperglycemia, acidosis, hypoxia/ hypoxemia, hypercarbia/hypercapnia Avoid institution of any new psychoactive medications (e.g. antihistamines, anticholinergics, BZD, hypnotics, opiates) as able unless low doses of low potency antipsychotic needed for behavioral issues complicating medical care Specific neurologic assessment of likelihood of prognosis back to baseline @ this point is limited as there is no active primary neurologic issue ongoing, and therefore prognosis will be completely secondary to any potential progress patient is able to make from multiple ongoing critical medical issues as above. Thiamine/Folate/CIWA protocol accordingly for any hx obtained to suggest EtOH withdrawal Cont home meds-there is no neurologic indication to change We can revisit as needed.
--- NOTE | 2016-12-08 11:31 | Operative Report ---
Operative Report Operative Report: Procedure: Conversion of a right common femoral triple lumen venous catheter to a Trialysis temporary dialysis catheter. Date of Procedure: 12/08/2016 History/Indication: Acute Kidney Injury Physician: Leonel Adhikari MD Technique/Procedural Details: The existing right femoral triple-lumen catheter was thoroughly prepped. The patient was then draped in the usual sterile fashion. A J-wire was inserted into the triple-lumen catheter. The triple-lumen catheter was exchanged for a tissue dilator. After serial tissue dilation, a 30 cm, 13 [place] Trialysis temporary dialysis catheter was inserted. Vacuum aspiration and flushing was performed. No heparin was instilled, as the patient was going to be dialyzed immediately. The catheter was sutured to the skin with 2-0 Ethilon suture. A sterile dressing was placed. Discussion: Successful conversion of a right common femoral triple lumen catheter to a temporary dialysis catheter. The newly placed catheter flushes and aspirates easily. Specimen: None EBL: <5 cc
--- NOTE | 2016-12-08 11:42 | Post Operative Note ---
Date of procedure: 12/08/16 Pre-op diagnosis: melena Post-op diagnosis: other (duodenitis, gastritis, ratained tube feeds in stomach (moderate amount)) Findings: moderate-severe duodenitis, gastritis (suspect may be due to NG trauma). retained tube feeds in distal stomach. No obvious high risk bleeding stigmata or signs of active bleeding seen. Procedure: EGD Anesthesia: regional (fentanyl 50 mcg, versed 2 mg IV) Surgeon: KING ORNELAS Estimated blood loss: none Pathology: none Condition: critical Disposition: ICU
--- NOTE | 2016-12-08 11:49 | Operative Report ---
Operative Report Operative Report: EGD PROCEDURE NOTE Date of procedure: 12/08/2016 Pre-op diagnosis: melena Post-op diagnosis: duodenitis, gastritis and evidence of likely NG trauma, retained tube feeds Anesthesia: Moderate sedation (fentanyl 50 mcg, versed 2mg) Complications: No immediate complications Estimated blood loss: none Procedure: After consent was obtained from the patient's over the phone ( patient intubated/sedated), the patient was placed in the left lateral decubitus position. The procedure was performed at bedside in the ICU. The fujinon endoscope was inserted into the mouth with direct vision and advanced into the 2nd portion of duodenum without difficulty. The patient tolerated the procedure well. The views of the mucosa were fair/poor. Findings: Esophagus: Mild distal esophagitis, and hiatal hernia. Otherwise, the esophagus appeared normal Stomach: Erythematous mucosa in gastric body which is likely due to NG trauma. There was retained tube feeds in the distal stomach/antrum which limited views but no obvious high risk bleeding lesions seen. Duodenum: Moderate-severe duodenitis of first and 2nd portion of duodenum. Bile seen in the duodenum (no blood). Impression: 1. Mod-severe duodenitis 2. Gastritis, evidence of prior NG trauma 3. Esophagitis No signs of active/recent bleeding or high risk bleeding stigmata seen. Recommendations: -PPI BID dosing -transfusions as needed to keep plat > 50k, and hgb > 7 -check c diff if patient is having diarrhea
--- NOTE | 2016-12-08 11:51 | Event Note ---
Date: 12/08/16 Patient with reported dark stools overnight. H/H dropped since admission but has remained mostly stable last couple days. EGD without high risk bleeding stigmata/lesions seen, but may have caused slow bleed/dark stools in setting of thrombocytopenia. Recommendations: -cont PPI and transfuse as needed to keep hct > 21, plat > 50 k if signs of bleeding -monitor for time being from Gi stand point. will hold off on further work-up/ colonoscopy unless there is a change in clinical course -check c diff if signs of diarrhea Will sign off, please call as needed or with questions.
[2016-12-08] MEDS ORDERED: HEPARIN IV PRN (12:21)
[2016-12-08] MEDS ORDERED: NACL 0.9% 100 ML IV PRN (12:21)
[2016-12-08] MEDS: PROTONIX IV SCH ×2 (15:39→22:21)
[2016-12-08] MEDS: LEVEMIR SUB-Q SCH (15:46)
[2016-12-08] MEDS ORDERED: PANCREAZE DR 10,500 UNIT FEEDTUBE PRN (16:11)
[2016-12-08] MEDS ORDERED: SODIUM BICARBONATE FEEDTUBE PRN (16:11)
[2016-12-08] MEDS ORDERED: SIMPLE SYRUP FEEDTUBE PRN (16:11)
[2016-12-08] MEDS: TRIPLE ANTIBIOTIC TP SCH (16:51)
[2016-12-08] MEDS: DAKIN'S HALF STRENGTH TP SCH ×2 (16:52→21:33)
[2016-12-08] MEDS: ROCEPHIN/NS 1 GM/50 ML 1 GM/50 ML BAG IV SCH (17:54)
[2016-12-08 18:48] LABS: Hematocrit 28.1 % (35.5-45.6); Hemoglobin 9.2 gm/dl (11.8-15.2)
[2016-12-09] MEDS: NOVOLOG SUB-Q SCH ×5 (00:10→23:33)
[2016-12-09 05:37] LABS: ISTAT Base Excess -1; ISTAT HCO3 23.8; ISTAT PCO2 39.4 (35-45); ISTAT PO2 107 (80-105); ISTAT SO2 98; ISTAT TCO2 25
[2016-12-09 06:09] LABS: Hematocrit 29.2 % (35.5-45.6); Hemoglobin 9.5 gm/dl (11.8-15.2); Mean Corpuscular HGB Conc 33 % (32-34); Mean Corpuscular Hemoglobin 27 pg (28-32); Mean Corpuscular Volume 84 fl (84-94); Red Blood Count 3.48 M/mm3 (3.65-5.03); Red Cell Distribution Width 15.8 % (13.2-15.2); White Blood Count 17.6 K/mm3 (4.5-11.0)
[2016-12-09 06:11] LABS: Platelet Count 75 K/mm3 (140-440)
[2016-12-09 06:31] LABS: BUN/Creatinine Ratio 23.58; Calcium 8.5 mg/dL (8.4-10.2); Chloride 101.9 mmol/L (98-107); Potassium 4.5 mmol/L (3.6-5.0)
[2016-12-09 08:00] LABS: Basophils % (Manual) 0 % (0.0-1.8); Blastocytes % (Manual) 0 %; Hypochromasia Few; Target Cells Few
[2016-12-09 08:01] LABS: Anisocytosis 1+; Diff Status Complete; Platelet Estimate Consistent w Auto; Schistocytes Few
[2016-12-09] MEDS: PROVENTIL IH PRN (08:06)
[2016-12-09] MEDS: SUBLIMAZE IV PRN ×2 (08:06→17:10)
--- NOTE | 2016-12-09 08:42 | Progress Note ---
Assessment and Plan Cardiac arrest. No new cardiac events. Acute respiratory failure on ventilator support. AMS. More responsive now but not oriented Congestive heart failure. Suspected lower GI bleeding. EGD done , duodenitis- see report.H/H stable Thrombocytopenia. Slight improvement TREMAINE P. pacemaker Sepsis. Infected ulcers Recommendations SBT initiated Monitor ABG Extubation precautions Critical care time was 31 minutes [id number] evaluation and coordination of care Subjective Date of service: 12/09/16 Principal diagnosis: bilateral leg wounds; TREMAINE Interval history: intubated,awake not following commands Objective Vital Signs - 12hr 12/08/16 12/08/16 12/08/16 21:00 21:35 22:00 Temperature Pulse Rate 92 H 83 Pulse Rate [ Anterior Bilateral Throughout] Respiratory 14 19 Rate Respiratory Rate [Anterior Bilateral Throughout] Respiratory 18 Rate [ Generalized] Blood Pressure 107/54 97/52 O2 Sat by Pulse 73 L 100 98 Oximetry 12/08/16 12/08/16 12/08/16 23:00 23:25 23:26 Temperature Pulse Rate 91 H 88 93 H Pulse Rate [ Anterior Bilateral Throughout] Respiratory 11 L 13 Rate Respiratory Rate [Anterior Bilateral Throughout] Respiratory 18 Rate [ Generalized] Blood Pressure 108/58 99/59 O2 Sat by Pulse 100 100 100 Oximetry 12/09/16 12/09/16 12/09/16 00:00 01:00 01:25 Temperature Pulse Rate 87 90 Pulse Rate [ Anterior Bilateral Throughout] Respiratory 19 12 Rate Respiratory Rate [Anterior Bilateral Throughout] Respiratory Rate [ Generalized] Blood Pressure 100/51 110/56 O2 Sat by Pulse 100 100 100 Oximetry 12/09/16 12/09/16 12/09/16 02:00 03:00 03:05 Temperature Pulse Rate 83 85 Pulse Rate [ Anterior Bilateral Throughout] Respiratory 11 L 16 Rate Respiratory Rate [Anterior Bilateral Throughout] Respiratory Rate [ Generalized] Blood Pressure 97/56 114/66 O2 Sat by Pulse 40 L 100 Oximetry 12/09/16 12/09/16 12/09/16 03:23 04:00 04:05 Temperature 98.5 F Pulse Rate 88 88 Pulse Rate [ Anterior Bilateral Throughout] Respiratory 17 Rate Respiratory Rate [Anterior Bilateral Throughout] Respiratory Rate [ Generalized] Blood Pressure 109/68 O2 Sat by Pulse 100 Oximetry 12/09/16 12/09/16 12/09/16 04:58 05:07 06:00 Temperature Pulse Rate 83 94 H Pulse Rate [ Anterior Bilateral Throughout] Respiratory 13 15 20 Rate Respiratory Rate [Anterior Bilateral Throughout] Respiratory Rate [ Generalized] Blood Pressure 119/67 O2 Sat by Pulse 100 100 100 Oximetry 12/09/16 12/09/16 12/09/16 07:00 07:38 07:44 Temperature Pulse Rate 97 H 92 H Pulse Rate [ 96 H Anterior Bilateral Throughout] Respiratory 22 Rate Respiratory 25 H Rate [Anterior Bilateral Throughout] Respiratory Rate [ Generalized] Blood Pressure 114/53 111/61 O2 Sat by Pulse 100 100 Oximetry 12/09/16 12/09/16 07:57 08:00 Temperature Pulse Rate 113 H Pulse Rate [ 110 H Anterior Bilateral Throughout] Respiratory 13 Rate Respiratory 26 H Rate [Anterior Bilateral Throughout] Respiratory Rate [ Generalized] Blood Pressure 111/61 O2 Sat by Pulse 100 Oximetry Constitutional: alert Eyes: other (pupils reactive and equal) ENT: other (orally intubated) Neck: supple, no JVD Ascultation: Bilateral: clear, diminished breath sounds, rales (anteriorly), rhonchi Percussion: Bilateral: not dull Cardiovascular: other (pacemaker rhythm) Gastrointestinal: normoactive bowel sounds, soft, non-distended Integumentary: normal Extremities: no edema, cool Neurologic: pupils equal and round, other (moving spontaneously,RASS 0-1) CBC and BMP: 12/09/16 05:50 12/09/16 05:50 ABG, PT/INR, D-dimer: ABG POC ABG pH 7.390 (7.35-7.45) 12/09/16 04:13 POC ABG pCO2 39.4 (35-45) 12/09/16 04:13 POC ABG pO2 107 (80-105) H 12/09/16 04:13 POC ABG HCO3 23.8 12/09/16 04:13 POC ABG Total CO2 25 12/09/16 04:13 POC ABG O2 Sat 98 12/09/16 04:13 PT/INR, D-dimer PT 16.6 Sec. (12.2-14.9) H 12/02/16 19:20 INR 1.27 (0.87-1.13) H 12/02/16 19:20 Abnormal lab findings: Abnormal Labs 11/28/16 11/28/16 11/28/16 14:16 16:02 16:02 WBC RBC Hgb Hct MCV MCH MCHC RDW Plt Count Lymph % (Auto) [place] % (Auto) Lymph # [place] # Seg Neutrophils % Seg Neuts % (Manual) Lymphocytes % (Manual) Monocytes % (Manual) Seg Neutrophils # Seg Neutrophils # Man Lymphocytes # (Manual) Monocytes # (Manual) PT 17.3 H INR 1.42 H APTT 38.0 H Heparin Anti-Xa Level POC ABG pH POC ABG pCO2 POC ABG pO2 Sodium Potassium 3.3 L Chloride 96.0 L Carbon Dioxide BUN 100 H Creatinine 3.4 H Glucose 235 H POC Glucose 500 H Hemoglobin A1c Lactic Acid Calcium Total Bilirubin Alkaline Phosphatase Ammonia Troponin T Total Protein Albumin HDL Cholesterol Urine Creatinine Crossmatch 11/28/16 11/28/16 11/29/16 16:02 21:30 05:50 WBC RBC Hgb Hct MCV MCH MCHC RDW Plt Count Lymph % (Auto) [place] % (Auto) Lymph # [place] # Seg Neutrophils % Seg Neuts % (Manual) Lymphocytes % (Manual) Monocytes % (Manual) Seg Neutrophils # Seg Neutrophils # Man Lymphocytes # (Manual) Monocytes # (Manual) PT INR APTT Heparin Anti-Xa Level POC ABG pH POC ABG pCO2 POC ABG pO2 Sodium Potassium Chloride Carbon Dioxide BUN Creatinine Glucose POC Glucose 68 L 40 L Hemoglobin A1c 10.6 H Lactic Acid Calcium Total Bilirubin Alkaline Phosphatase Ammonia Troponin T Total Protein Albumin HDL Cholesterol Urine Creatinine Crossmatch 11/29/16 11/29/16 11/29/16 06:33 08:37 08:37 WBC RBC Hgb 10.2 L Hct 30.9 L MCV MCH MCHC RDW 16.0 H Plt Count 104 L Lymph % (Auto) 2.4 L [place] % (Auto) 8.5 H Lymph # 0.2 L [place] # 0.9 H Seg Neutrophils % 89.0 H Seg Neuts % (Manual) Lymphocytes % (Manual) Monocytes % (Manual) Seg Neutrophils # 9.2 H Seg Neutrophils # Man Lymphocytes # (Manual) Monocytes # (Manual) PT INR APTT Heparin Anti-Xa Level POC ABG pH POC ABG pCO2 POC ABG pO2 Sodium Potassium Chloride Carbon Dioxide BUN 95 H Creatinine 2.9 H Glucose POC Glucose 57 L Hemoglobin A1c Lactic Acid Calcium Total Bilirubin Alkaline Phosphatase Ammonia Troponin T Total Protein Albumin HDL Cholesterol Urine Creatinine Crossmatch 11/29/16 11/29/16 11/29/16 11:41 12:48 15:44 WBC RBC Hgb Hct MCV MCH MCHC RDW Plt Count Lymph % (Auto) [place] % (Auto) Lymph # [place] # Seg Neutrophils % Seg Neuts % (Manual) Lymphocytes % (Manual) Monocytes % (Manual) Seg Neutrophils # Seg Neutrophils # Man Lymphocytes # (Manual) Monocytes # (Manual) PT INR APTT Heparin Anti-Xa Level POC ABG pH POC ABG pCO2 POC ABG pO2 Sodium Potassium Chloride Carbon Dioxide BUN Creatinine Glucose POC Glucose 48 L 143 H 138 H Hemoglobin A1c Lactic Acid Calcium Total Bilirubin Alkaline Phosphatase Ammonia Troponin T Total Protein Albumin HDL Cholesterol Urine Creatinine Crossmatch 11/29/16 11/29/16 11/30/16 21:04 22:26 06:11 WBC RBC Hgb Hct MCV MCH MCHC RDW Plt Count Lymph % (Auto) [place] % (Auto) Lymph # [place] # Seg Neutrophils % Seg Neuts % (Manual) Lymphocytes % (Manual) Monocytes % (Manual) Seg Neutrophils # Seg Neutrophils # Man Lymphocytes # (Manual) Monocytes # (Manual) PT INR APTT Heparin Anti-Xa Level POC ABG pH POC ABG pCO2 POC ABG pO2 Sodium Potassium Chloride Carbon Dioxide BUN Creatinine Glucose POC Glucose 49 L 165 H 121 H Hemoglobin A1c Lactic Acid Calcium Total Bilirubin Alkaline Phosphatase Ammonia Troponin T Total Protein Albumin HDL Cholesterol Urine Creatinine Crossmatch 11/30/16 11/30/16 11/30/16 08:53 08:53 10:00 WBC RBC Hgb 10.9 L Hct 33.2 L MCV MCH MCHC RDW 16.3 H Plt Count 96 L Lymph % (Auto) [place] % (Auto) Lymph # [place] # Seg Neutrophils % Seg Neuts % (Manual) 91.0 H Lymphocytes % (Manual) 2.0 L Monocytes % (Manual) Seg Neutrophils # Seg Neutrophils # Man 9.3 H Lymphocytes # (Manual) 0.2 L Monocytes # (Manual) PT INR APTT Heparin Anti-Xa Level POC ABG pH POC ABG pCO2 POC ABG pO2 Sodium Potassium Chloride Carbon Dioxide BUN 78 H Creatinine 2.3 H Glucose 139 H POC Glucose Hemoglobin A1c Lactic Acid Calcium 8.3 L Total Bilirubin Alkaline Phosphatase Ammonia Troponin T Total Protein Albumin HDL Cholesterol Urine Creatinine 78.6 H Crossmatch 11/30/16 11/30/16 11/30/16 11:23 17:43 20:23 WBC RBC Hgb Hct MCV MCH MCHC RDW Plt Count Lymph % (Auto) [place] % (Auto) Lymph # [place] # Seg Neutrophils % Seg Neuts % (Manual) Lymphocytes % (Manual) Monocytes % (Manual) Seg Neutrophils # Seg Neutrophils # Man Lymphocytes # (Manual) Monocytes # (Manual) PT INR APTT Heparin Anti-Xa Level POC ABG pH POC ABG pCO2 POC ABG pO2 Sodium Potassium Chloride Carbon Dioxide BUN Creatinine Glucose POC Glucose 169 H 57 L 69 L Hemoglobin A1c Lactic Acid Calcium Total Bilirubin Alkaline Phosphatase Ammonia Troponin T Total Protein Albumin HDL Cholesterol Urine Creatinine Crossmatch 11/30/16 11/30/16 12/01/16 20:37 22:12 05:30 WBC RBC Hgb Hct MCV MCH MCHC RDW Plt Count Lymph % (Auto) [place] % (Auto) Lymph # [place] # Seg Neutrophils % Seg Neuts % (Manual) Lymphocytes % (Manual) Monocytes % (Manual) Seg Neutrophils # Seg Neutrophils # Man Lymphocytes # (Manual) Monocytes # (Manual) PT INR APTT Heparin Anti-Xa Level POC ABG pH POC ABG pCO2 POC ABG pO2 Sodium Potassium Chloride Carbon Dioxide BUN Creatinine Glucose POC Glucose 107 H 151 H Hemoglobin A1c Lactic Acid Calcium Total Bilirubin Alkaline Phosphatase Ammonia Troponin T 0.033 H Total Protein Albumin HDL Cholesterol 36 L Urine Creatinine Crossmatch 12/01/16 12/01/16 12/01/16 07:39 07:39 11:48 WBC 12.9 H RBC Hgb 10.9 L Hct 33.2 L MCV MCH MCHC RDW 16.6 H Plt Count 94 L Lymph % (Auto) [place] % (Auto) Lymph # [place] # Seg Neutrophils % Seg Neuts % (Manual) 98.0 H Lymphocytes % (Manual) 0 L Monocytes % (Manual) Seg Neutrophils # Seg Neutrophils # Man 12.6 H Lymphocytes # (Manual) 0.0 L Monocytes # (Manual) PT INR APTT Heparin Anti-Xa Level POC ABG pH POC ABG pCO2 POC ABG pO2 Sodium Potassium Chloride Carbon Dioxide BUN 71 H Creatinine 2.1 H Glucose POC Glucose 193 H Hemoglobin A1c Lactic Acid Calcium 8.1 L Total Bilirubin Alkaline Phosphatase Ammonia Troponin T Total Protein Albumin HDL Cholesterol Urine Creatinine Crossmatch 12/01/16 12/01/16 12/02/16 17:02 21:17 06:05 WBC RBC Hgb Hct MCV MCH MCHC RDW Plt Count Lymph % (Auto) [place] % (Auto) Lymph # [place] # Seg Neutrophils % Seg Neuts % (Manual) Lymphocytes % (Manual) Monocytes % (Manual) Seg Neutrophils # Seg Neutrophils # Man Lymphocytes # (Manual) Monocytes # (Manual) PT INR APTT Heparin Anti-Xa Level POC ABG pH POC ABG pCO2 POC ABG pO2 Sodium Potassium Chloride Carbon Dioxide BUN Creatinine Glucose POC Glucose 170 H 156 H < 40 L Hemoglobin A1c Lactic Acid Calcium Total Bilirubin Alkaline Phosphatase Ammonia Troponin T Total Protein Albumin HDL Cholesterol Urine Creatinine Crossmatch 12/02/16 12/02/16 12/02/16 06:34 06:41 07:48 WBC RBC Hgb 10.2 L Hct 31.4 L MCV MCH 27 L MCHC RDW 16.3 H Plt Count 89 L Lymph % (Auto) [place] % (Auto) Lymph # [place] # Seg Neutrophils % Seg Neuts % (Manual) 87.0 H Lymphocytes % (Manual) 7.0 L Monocytes % (Manual) Seg Neutrophils # Seg Neutrophils # Man 8.9 H Lymphocytes # (Manual) 0.7 L Monocytes # (Manual) PT INR APTT Heparin Anti-Xa Level POC ABG pH POC ABG pCO2 POC ABG pO2 Sodium Potassium Chloride Carbon Dioxide BUN Creatinine Glucose POC Glucose 141 H 124 H Hemoglobin A1c Lactic Acid Calcium Total Bilirubin Alkaline Phosphatase Ammonia Troponin T Total Protein Albumin HDL Cholesterol Urine Creatinine Crossmatch 12/02/16 12/02/16 12/02/16 07:48 12:22 18:02 WBC RBC Hgb Hct MCV MCH MCHC RDW Plt Count Lymph % (Auto) [place] % (Auto) Lymph # [place] # Seg Neutrophils % Seg Neuts % (Manual) Lymphocytes % (Manual) Monocytes % (Manual) Seg Neutrophils # Seg Neutrophils # Man Lymphocytes # (Manual) Monocytes # (Manual) PT INR APTT Heparin Anti-Xa Level POC ABG pH POC ABG pCO2 POC ABG pO2 Sodium 136 L Potassium Chloride Carbon Dioxide BUN 75 H Creatinine 2.7 H Glucose POC Glucose < 40 L 53 L Hemoglobin A1c Lactic Acid Calcium 7.9 L Total Bilirubin Alkaline Phosphatase Ammonia Troponin T Total Protein Albumin HDL Cholesterol Urine Creatinine Crossmatch 12/02/16 12/02/16 12/02/16 19:20 19:23 19:23 WBC 13.8 H RBC Hgb 10.9 L Hct 34.6 L MCV MCH 27 L MCHC 31 L RDW 16.2 H Plt Count 106 L Lymph % (Auto) [place] % (Auto) Lymph # [place] # Seg Neutrophils % Seg Neuts % (Manual) 86.0 H Lymphocytes % (Manual) 4.0 L Monocytes % (Manual) Seg Neutrophils # Seg Neutrophils # Man 11.9 H Lymphocytes # (Manual) 0.6 L Monocytes # (Manual) 1.0 H PT 16.6 H INR 1.27 H APTT 45.4 H Heparin Anti-Xa Level POC ABG pH POC ABG pCO2 POC ABG pO2 Sodium Potassium Chloride 95.8 L Carbon Dioxide BUN 75 H Creatinine 2.8 H Glucose 105 H POC Glucose Hemoglobin A1c Lactic Acid Calcium 7.8 L Total Bilirubin 2.70 H Alkaline Phosphatase Ammonia Troponin T Total Protein 6.0 L Albumin 2.7 L HDL Cholesterol Urine Creatinine Crossmatch 12/02/16 12/02/16 12/03/16 19:39 21:14 01:15 WBC RBC Hgb Hct MCV MCH MCHC RDW Plt Count Lymph % (Auto) [place] % (Auto) Lymph # [place] # Seg Neutrophils % Seg Neuts % (Manual) Lymphocytes % (Manual) Monocytes % (Manual) Seg Neutrophils # Seg Neutrophils # Man Lymphocytes # (Manual) Monocytes # (Manual) PT INR APTT Heparin Anti-Xa Level < 0.10 L POC ABG pH 7.214 L POC ABG pCO2 54.0 H POC ABG pO2 227 H Sodium Potassium Chloride Carbon Dioxide BUN Creatinine Glucose POC Glucose 141 H Hemoglobin A1c Lactic Acid Calcium Total Bilirubin Alkaline Phosphatase Ammonia Troponin T Total Protein Albumin HDL Cholesterol Urine Creatinine Crossmatch 12/03/16 12/03/16 12/03/16 04:15 05:15 06:04 WBC 45.9 H* RBC Hgb 10.5 L Hct 32.9 L MCV MCH 27 L MCHC RDW 16.6 H Plt Count 101 L Lymph % (Auto) [place] % (Auto) Lymph # [place] # Seg Neutrophils % Seg Neuts % (Manual) Lymphocytes % (Manual) 8.0 L Monocytes % (Manual) 8.0 H Seg Neutrophils # Seg Neutrophils # Man 31.2 H Lymphocytes # (Manual) Monocytes # (Manual) 3.7 H PT INR APTT Heparin Anti-Xa Level POC ABG pH POC ABG pCO2 POC ABG pO2 72 L Sodium Potassium Chloride Carbon Dioxide BUN Creatinine Glucose POC Glucose 50 L Hemoglobin A1c Lactic Acid Calcium Total Bilirubin Alkaline Phosphatase Ammonia Troponin T Total Protein Albumin HDL Cholesterol Urine Creatinine Crossmatch 06/12/03/16 12/03/16 06:04 06:51 08:01 WBC RBC Hgb Hct MCV MCH MCHC RDW Plt Count Lymph % (Auto) [place] % (Auto) Lymph # [place] # Seg Neutrophils % Seg Neuts % (Manual) Lymphocytes % (Manual) Monocytes % (Manual) Seg Neutrophils # Seg Neutrophils # Man Lymphocytes # (Manual) Monocytes # (Manual) PT INR APTT Heparin Anti-Xa Level POC ABG pH POC ABG pCO2 POC ABG pO2 Sodium 128 L D Potassium 6.8 H* D Chloride 94.2 L Carbon Dioxide 17 L BUN 77 H Creatinine 2.6 H Glucose POC Glucose 118 H Hemoglobin A1c Lactic Acid Calcium 7.6 L Total Bilirubin Alkaline Phosphatase Ammonia Troponin T 0.098 H Total Protein Albumin HDL Cholesterol Urine Creatinine Crossmatch 12/03/16 12/03/16 12/03/16 08:13 09:44 12:19 WBC RBC Hgb Hct MCV MCH MCHC RDW Plt Count Lymph % (Auto) [place] % (Auto) Lymph # [place] # Seg Neutrophils % Seg Neuts % (Manual) Lymphocytes % (Manual) Monocytes % (Manual) Seg Neutrophils # Seg Neutrophils # Man Lymphocytes # (Manual) Monocytes # (Manual) PT INR APTT Heparin Anti-Xa Level POC ABG pH POC ABG pCO2 POC ABG pO2 Sodium Potassium Chloride Carbon Dioxide BUN Creatinine Glucose POC Glucose 107 H 115 H Hemoglobin A1c Lactic Acid 3.40 H* Calcium Total Bilirubin Alkaline Phosphatase Ammonia Troponin T Total Protein Albumin HDL Cholesterol Urine Creatinine Crossmatch 12/03/16 12/03/16 12/03/16 16:39 17:49 20:15 WBC 18.9 H RBC 3.04 L Hgb 8.4 L Hct 26.2 L MCV MCH MCHC RDW 16.6 H Plt Count 81 L Lymph % (Auto) [place] % (Auto) Lymph # [place] # Seg Neutrophils % Seg Neuts % (Manual) 94.0 H Lymphocytes % (Manual) 1.0 L Monocytes % (Manual) Seg Neutrophils # Seg Neutrophils # Man 17.8 H Lymphocytes # (Manual) 0.2 L Monocytes # (Manual) PT INR APTT Heparin Anti-Xa Level POC ABG pH POC ABG pCO2 POC ABG pO2 Sodium Potassium Chloride Carbon Dioxide BUN Creatinine Glucose POC Glucose 151 H Hemoglobin A1c Lactic Acid 3.10 H* Calcium Total Bilirubin Alkaline Phosphatase Ammonia Troponin T Total Protein Albumin HDL Cholesterol Urine Creatinine Crossmatch 12/03/16 12/03/16 12/03/16 23:34 Unknown Unknown WBC 22.2 H RBC 3.16 L Hgb 8.6 L Hct 27.3 L MCV MCH 27 L MCHC 31 L RDW 16.9 H Plt Count 81 L Lymph % (Auto) [place] % (Auto) Lymph # [place] # Seg Neutrophils % Seg Neuts % (Manual) Lymphocytes % (Manual) Monocytes % (Manual) Seg Neutrophils # Seg Neutrophils # Man Lymphocytes # (Manual) Monocytes # (Manual) PT INR APTT Heparin Anti-Xa Level POC ABG pH POC ABG pCO2 POC ABG pO2 Sodium 132 L Potassium Chloride 95.8 L Carbon Dioxide 19 L BUN 93 H Creatinine 3.4 H Glucose 130 H POC Glucose 188 H Hemoglobin A1c Lactic Acid Calcium 7.4 L Total Bilirubin Alkaline Phosphatase Ammonia Troponin T Total Protein Albumin HDL Cholesterol Urine Creatinine Crossmatch 12/04/16 12/04/16 12/04/16 04:57 05:45 06:00 WBC 17.8 H RBC 3.07 L Hgb 8.7 L Hct 26.1 L MCV MCH MCHC RDW 16.5 H Plt Count 93 L Lymph % (Auto) [place] % (Auto) Lymph # [place] # Seg Neutrophils % Seg Neuts % (Manual) 80.0 H Lymphocytes % (Manual) 7.0 L Monocytes % (Manual) Seg Neutrophils # Seg Neutrophils # Man 14.2 H Lymphocytes # (Manual) Monocytes # (Manual) 1.1 H PT INR APTT Heparin Anti-Xa Level POC ABG pH 7.277 L POC ABG pCO2 POC ABG pO2 198 H Sodium Potassium Chloride Carbon Dioxide BUN Creatinine Glucose POC Glucose 186 H Hemoglobin A1c Lactic Acid Calcium Total Bilirubin Alkaline Phosphatase Ammonia Troponin T Total Protein Albumin HDL Cholesterol Urine Creatinine Crossmatch 12/04/16 12/04/16 12/04/16 06:00 07:23 11:50 WBC RBC Hgb Hct MCV MCH MCHC RDW Plt Count Lymph % (Auto) [place] % (Auto) Lymph # [place] # Seg Neutrophils % Seg Neuts % (Manual) Lymphocytes % (Manual) Monocytes % (Manual) Seg Neutrophils # Seg Neutrophils # Man Lymphocytes # (Manual) Monocytes # (Manual) PT INR APTT Heparin Anti-Xa Level POC ABG pH POC ABG pCO2 POC ABG pO2 Sodium 133 L Potassium Chloride 96.0 L Carbon Dioxide 18 L BUN 103 H Creatinine 3.6 H Glucose 190 H POC Glucose 187 H 190 H Hemoglobin A1c Lactic Acid Calcium 7.7 L Total Bilirubin Alkaline Phosphatase Ammonia Troponin T Total Protein Albumin HDL Cholesterol Urine Creatinine Crossmatch 12/04/16 12/04/16 12/04/16 13:22 17:46 23:33 WBC RBC Hgb Hct MCV MCH MCHC RDW Plt Count Lymph % (Auto) [place] % (Auto) Lymph # [place] # Seg Neutrophils % Seg Neuts % (Manual) Lymphocytes % (Manual) Monocytes % (Manual) Seg Neutrophils # Seg Neutrophils # Man Lymphocytes # (Manual) Monocytes # (Manual) PT INR APTT Heparin Anti-Xa Level POC ABG pH POC ABG pCO2 POC ABG pO2 Sodium Potassium Chloride Carbon Dioxide BUN Creatinine Glucose POC Glucose 264 H 263 H Hemoglobin A1c Lactic Acid 2.60 H* Calcium Total Bilirubin Alkaline Phosphatase Ammonia Troponin T Total Protein Albumin HDL Cholesterol Urine Creatinine Crossmatch 12/05/16 12/05/16 12/05/16 05:00 05:00 05:17 WBC 17.1 H RBC 3.03 L Hgb 8.2 L Hct 25.9 L MCV MCH 27 L MCHC RDW 16.4 H Plt Count 81 L Lymph % (Auto) 1.3 L [place] % (Auto) 9.7 H Lymph # 0.2 L [place] # 1.7 H Seg Neutrophils % 88.9 H Seg Neuts % (Manual) Lymphocytes % (Manual) Monocytes % (Manual) Seg Neutrophils # 15.2 H Seg Neutrophils # Man Lymphocytes # (Manual) Monocytes # (Manual) PT INR APTT Heparin Anti-Xa Level POC ABG pH POC ABG pCO2 POC ABG pO2 Sodium 132 L Potassium Chloride 96.9 L Carbon Dioxide 19 L BUN 120 H Creatinine 4.8 H Glucose 193 H POC Glucose 229 H Hemoglobin A1c Lactic Acid Calcium 8.0 L Total Bilirubin Alkaline Phosphatase Ammonia Troponin T Total Protein Albumin HDL Cholesterol Urine Creatinine Crossmatch 12/05/16 12/05/16 12/05/16 06:00 11:46 17:53 WBC RBC Hgb Hct MCV MCH MCHC RDW Plt Count Lymph % (Auto) [place] % (Auto) Lymph # [place] # Seg Neutrophils % Seg Neuts % (Manual) Lymphocytes % (Manual) Monocytes % (Manual) Seg Neutrophils # Seg Neutrophils # Man Lymphocytes # (Manual) Monocytes # (Manual) PT INR APTT Heparin Anti-Xa Level POC ABG pH POC ABG pCO2 32.5 L POC ABG pO2 124 H Sodium Potassium Chloride Carbon Dioxide BUN Creatinine Glucose POC Glucose 139 H 170 H Hemoglobin A1c Lactic Acid Calcium Total Bilirubin Alkaline Phosphatase Ammonia Troponin T Total Protein Albumin HDL Cholesterol Urine Creatinine Crossmatch 12/05/16 12/06/16 12/06/16 23:24 04:20 05:57 WBC RBC Hgb Hct MCV MCH MCHC RDW Plt Count Lymph % (Auto) [place] % (Auto) Lymph # [place] # Seg Neutrophils % Seg Neuts % (Manual) Lymphocytes % (Manual) Monocytes % (Manual) Seg Neutrophils # Seg Neutrophils # Man Lymphocytes # (Manual) Monocytes # (Manual) PT INR APTT Heparin Anti-Xa Level POC ABG pH POC ABG pCO2 30.3 L POC ABG pO2 122 H Sodium Potassium Chloride Carbon Dioxide BUN Creatinine Glucose POC Glucose 153 H 166 H Hemoglobin A1c Lactic Acid Calcium Total Bilirubin Alkaline Phosphatase Ammonia Troponin T Total Protein Albumin HDL Cholesterol Urine Creatinine Crossmatch 12/06/16 12/06/16 12/06/16 06:00 06:00 11:32 WBC 18.1 H RBC 2.76 L Hgb 7.7 L Hct 23.4 L MCV MCH MCHC RDW 16.6 H Plt Count 62 L Lymph % (Auto) [place] % (Auto) Lymph # [place] # Seg Neutrophils % Seg Neuts % (Manual) 96.0 H Lymphocytes % (Manual) 0 L Monocytes % (Manual) Seg Neutrophils # Seg Neutrophils # Man 17.4 H Lymphocytes # (Manual) 0.0 L Monocytes # (Manual) PT INR APTT Heparin Anti-Xa Level POC ABG pH POC ABG pCO2 POC ABG pO2 Sodium 134 L Potassium Chloride 96.8 L Carbon Dioxide 19 L BUN 117 H Creatinine 4.9 H Glucose 179 H POC Glucose 300 H Hemoglobin A1c Lactic Acid Calcium 8.0 L Total Bilirubin Alkaline Phosphatase Ammonia Troponin T Total Protein Albumin HDL Cholesterol Urine Creatinine Crossmatch 12/06/16 12/06/16 12/06/16 11:33 18:11 23:23 WBC RBC Hgb Hct MCV MCH MCHC RDW Plt Count Lymph % (Auto) [place] % (Auto) Lymph # [place] # Seg Neutrophils % Seg Neuts % (Manual) Lymphocytes % (Manual) Monocytes % (Manual) Seg Neutrophils # Seg Neutrophils # Man Lymphocytes # (Manual) Monocytes # (Manual) PT INR APTT Heparin Anti-Xa Level POC ABG pH POC ABG pCO2 POC ABG pO2 Sodium Potassium Chloride Carbon Dioxide BUN Creatinine Glucose POC Glucose 204 H 246 H 225 H Hemoglobin A1c Lactic Acid Calcium Total Bilirubin Alkaline Phosphatase Ammonia Troponin T Total Protein Albumin HDL Cholesterol Urine Creatinine Crossmatch 12/07/16 12/07/16 12/07/16 04:50 05:19 05:40 WBC 15.6 H RBC 2.71 L Hgb 7.4 L Hct 22.6 L MCV 83 L MCH 27 L MCHC RDW 16.2 H Plt Count 61 L Lymph % (Auto) [place] % (Auto) Lymph # [place] # Seg Neutrophils % Seg Neuts % (Manual) 97.0 H Lymphocytes % (Manual) 0 L Monocytes % (Manual) Seg Neutrophils # Seg Neutrophils # Man 15.1 H Lymphocytes # (Manual) 0.0 L Monocytes # (Manual) PT INR APTT Heparin Anti-Xa Level POC ABG pH POC ABG pCO2 31.3 L POC ABG pO2 Sodium Potassium Chloride Carbon Dioxide BUN Creatinine Glucose POC Glucose 238 H Hemoglobin A1c Lactic Acid Calcium Total Bilirubin Alkaline Phosphatase Ammonia Troponin T Total Protein Albumin HDL Cholesterol Urine Creatinine Crossmatch 12/07/16 12/07/16 12/07/16 05:40 11:43 16:09 WBC RBC Hgb Hct MCV MCH MCHC RDW Plt Count Lymph % (Auto) [place] % (Auto) Lymph # [place] # Seg Neutrophils % Seg Neuts % (Manual) Lymphocytes % (Manual) Monocytes % (Manual) Seg Neutrophils # Seg Neutrophils # Man Lymphocytes # (Manual) Monocytes # (Manual) PT INR APTT Heparin Anti-Xa Level POC ABG pH POC ABG pCO2 POC ABG pO2 Sodium 136 L Potassium Chloride Carbon Dioxide 19 L BUN 122 H Creatinine 5.1 H Glucose 226 H POC Glucose 312 H Hemoglobin A1c Lactic Acid Calcium 7.9 L Total Bilirubin Alkaline Phosphatase Ammonia Troponin T Total Protein Albumin HDL Cholesterol Urine Creatinine Crossmatch See Detail 12/07/16 12/07/16 12/07/16 16:09 17:27 17:31 WBC RBC Hgb 7.0 L Hct 21.0 L MCV MCH MCHC RDW Plt Count Lymph % (Auto) [place] % (Auto) Lymph # [place] # Seg Neutrophils % Seg Neuts % (Manual) Lymphocytes % (Manual) Monocytes % (Manual) Seg Neutrophils # Seg Neutrophils # Man Lymphocytes # (Manual) Monocytes # (Manual) PT INR APTT Heparin Anti-Xa Level POC ABG pH POC ABG pCO2 POC ABG pO2 Sodium Potassium Chloride Carbon Dioxide BUN Creatinine Glucose POC Glucose 312 H 242 H Hemoglobin A1c Lactic Acid Calcium Total Bilirubin Alkaline Phosphatase Ammonia Troponin T Total Protein Albumin HDL Cholesterol Urine Creatinine Crossmatch 12/07/16 12/08/16 12/08/16 23:52 04:00 04:00 WBC 13.2 H RBC 2.50 L Hgb 7.0 L Hct 21.1 L MCV MCH MCHC RDW 16.8 H Plt Count 44 L Lymph % (Auto) 1.5 L [place] % (Auto) 9.1 H Lymph # 0.2 L [place] # 1.2 H Seg Neutrophils % 88.6 H Seg Neuts % (Manual) Lymphocytes % (Manual) Monocytes % (Manual) Seg Neutrophils # 11.7 H Seg Neutrophils # Man Lymphocytes # (Manual) Monocytes # (Manual) PT INR APTT Heparin Anti-Xa Level POC ABG pH POC ABG pCO2 POC ABG pO2 Sodium Potassium Chloride Carbon Dioxide 21 L BUN 127 H Creatinine 5.0 H Glucose 148 H POC Glucose 173 H Hemoglobin A1c Lactic Acid Calcium 8.2 L Total Bilirubin 2.00 H Alkaline Phosphatase 132 H Ammonia Troponin T Total Protein 5.6 L Albumin 2.6 L HDL Cholesterol Urine Creatinine Crossmatch 12/08/16 12/08/16 12/08/16 05:34 09:20 11:50 WBC RBC Hgb 6.9 L Hct 21.4 L MCV MCH MCHC RDW Plt Count Lymph % (Auto) [place] % (Auto) Lymph # [place] # Seg Neutrophils % Seg Neuts % (Manual) Lymphocytes % (Manual) Monocytes % (Manual) Seg Neutrophils # Seg Neutrophils # Man Lymphocytes # (Manual) Monocytes # (Manual) PT INR APTT Heparin Anti-Xa Level POC ABG pH POC ABG pCO2 POC ABG pO2 Sodium Potassium Chloride Carbon Dioxide BUN Creatinine Glucose POC Glucose 134 H Hemoglobin A1c Lactic Acid Calcium Total Bilirubin Alkaline Phosphatase Ammonia 90.0 H Troponin T Total Protein Albumin HDL Cholesterol Urine Creatinine Crossmatch 12/08/16 12/08/16 12/08/16 15:40 17:35 18:20 WBC RBC Hgb 9.2 L Hct 28.1 L D MCV MCH MCHC RDW Plt Count Lymph % (Auto) [place] % (Auto) Lymph # [place] # Seg Neutrophils % Seg Neuts % (Manual) Lymphocytes % (Manual) Monocytes % (Manual) Seg Neutrophils # Seg Neutrophils # Man Lymphocytes # (Manual) Monocytes # (Manual) PT INR APTT Heparin Anti-Xa Level POC ABG pH POC ABG pCO2 POC ABG pO2 Sodium Potassium Chloride Carbon Dioxide BUN Creatinine Glucose POC Glucose 111 H 146 H Hemoglobin A1c Lactic Acid Calcium Total Bilirubin Alkaline Phosphatase Ammonia Troponin T Total Protein Albumin HDL Cholesterol Urine Creatinine Crossmatch 12/09/16 12/09/16 12/09/16 00:10 04:13 05:50 WBC 17.6 H RBC 3.48 L Hgb 9.5 L Hct 29.2 L MCV MCH 27 L MCHC RDW 15.8 H Plt Count 75 L Lymph % (Auto) [place] % (Auto) Lymph # [place] # Seg Neutrophils % Seg Neuts % (Manual) 94.0 H Lymphocytes % (Manual) 2.0 L Monocytes % (Manual) Seg Neutrophils # Seg Neutrophils # Man 16.5 H Lymphocytes # (Manual) 0.4 L Monocytes # (Manual) PT INR APTT Heparin Anti-Xa Level POC ABG pH POC ABG pCO2 POC ABG pO2 107 H Sodium Potassium Chloride Carbon Dioxide BUN Creatinine Glucose POC Glucose 64 L Hemoglobin A1c Lactic Acid Calcium Total Bilirubin Alkaline Phosphatase Ammonia Troponin T Total Protein Albumin HDL Cholesterol Urine Creatinine Crossmatch 12/09/16 05:50 WBC RBC Hgb Hct MCV MCH MCHC RDW Plt Count Lymph % (Auto) [place] % (Auto) Lymph # [place] # Seg Neutrophils % Seg Neuts % (Manual) Lymphocytes % (Manual) Monocytes % (Manual) Seg Neutrophils # Seg Neutrophils # Man Lymphocytes # (Manual) Monocytes # (Manual) PT INR APTT Heparin Anti-Xa Level POC ABG pH POC ABG pCO2 POC ABG pO2 Sodium Potassium Chloride Carbon Dioxide BUN 92 H Creatinine 3.9 H Glucose 70 L POC Glucose Hemoglobin A1c Lactic Acid Calcium Total Bilirubin Alkaline Phosphatase Ammonia Troponin T Total Protein Albumin HDL Cholesterol Urine Creatinine Crossmatch
--- NOTE | 2016-12-09 09:20 | Progress Note ---
Assessment and Plan Suspect that AICD interrogation was inaccurate - will proceed with treatment of cardiac arrest as originally suspected. Will resume coreg 3.125mg BID. Pt is not currently a candidate for systemic anticoagulation in regards to underlying AFib/AFlutter d/t anemia and thrombocytopenia. Consider ischemic evaluation once medically stabilized and once AMS improves. The patient has been seen in conjunction with Dr. BREEZY Hale who agrees with the assessment and plan of care. - Patient Problems (1) Hx-sudden cardiac arrest Current Visit: Yes Status: Acute (2) Abnormal EKG Current Visit: Yes Status: Acute (3) Bilateral leg ulcer Current Visit: Yes Status: Chronic Qualifiers: Non-pressure ulcer stage: N (4) Chest pain Current Visit: Yes Status: Chronic Qualifiers: Chest pain type: C Ischemic chest pain type: I (5) Shortness of breath Current Visit: Yes Status: Chronic (6) Wound infection Current Visit: Yes Status: Chronic (7) Acute on chronic renal failure Current Visit: No Status: Acute Qualifiers: Acute renal failure type: A Chronic kidney disease stage: C (8) Acute on chronic systolic heart failure Current Visit: No Status: Acute (9) COPD exacerbation Current Visit: No Status: Acute (10) Dehydration Current Visit: No Status: Acute (11) CAD (coronary artery disease) Current Visit: No Status: Chronic Qualifiers: Coronary Disease-Associated Artery/Lesion type: C [place] vs. transplanted heart: N Associated angina: A (12) Diabetes Current Visit: No Status: Chronic Qualifiers: Diabetes mellitus type: D Diabetes mellitus complication status: D Diabetes mellitus complication detail: D Diabetic retinopathy severity: D Proliferative retinopathy type: P Diabetes mellitus macular edema: D Diabetes mellitus terminal manager insulin use: D Laterality: L Chronic kidney disease stage: C (13) Hx of CABG Current Visit: No Status: Chronic (14) Ischemic cardiomyopathy Current Visit: No Status: Chronic (15) PAD (peripheral artery disease) Current Visit: No Status: Chronic (16) S/P implantation of automatic cardioverter/defibrillator (AICD) Current Visit: No Status: Chronic (17) Mitral regurgitation Current Visit: Yes Status: Chronic Qualifiers: Cardiac valve disease etiology: C (18) Tricuspid valve regurgitation Current Visit: Yes Status: Chronic Qualifiers: Cardiac valve disease etiology: C (19) Pulmonary hypertension Current Visit: Yes Status: Chronic Subjective Date of service: 12/09/16 Principal diagnosis: cardiac arrest Interval history: The patient remains intubated. Moves spontaneously but does not follow commands. Atrial fibrillation with occasional paced beats on the monitor. Objective Last Vital Signs Temp 98.2 F 12/09/16 08:00 Pulse 98 H 12/09/16 10:25 Resp 24 12/09/16 10:25 BP 126/73 12/09/16 10:25 Pulse Ox 99 12/09/16 10:25 - Physical Examination General: Other ( Intubated, does not follow commands) HEENT: Positive: Normocephaly, Mucus Membranes Moist Neck: Positive: neck supple, trachea midline Cardiac: Positive: irregularly irregular, S1/S2 Lungs: Positive: Rhonchi Neuro: Positive: Other (Arousable, does not follow commands) Abdomen: Positive: Soft, Active Bowel Sounds Skin: Positive: Clear, Other (Multiple ulcers in the legs - Dressing in situ.). Negative: Rash Musculoskeletal: other (Dressing in situ (multiple ulcers in the legs).) Extremities: Present: edema (trace LE edema) - Labs and Meds CBC 12/08/16 12/08/16 12/09/16 Range/Units 09:20 18:20 05:50 WBC 17.6 H (4.5-11.0) K/mm3 RBC 3.48 L (3.65-5.03) M/mm3 Hgb 6.9 L 9.2 L 9.5 L (11.8-15.2) gm/dl Hct 21.4 L 28.1 L D 29.2 L (35.5-45.6) % Plt Count 75 L (140-440) K/mm3 Comprehensive Metabolic Panel 12/09/16 Range/Units 05:50 Sodium 139 (137-145) mmol/L Potassium 4.5 (3.6-5.0) mmol/L Chloride 101.9 (98-107) mmol/L Carbon Dioxide 22 (22-30) mmol/L BUN 92 H (9-20) mg/dL Creatinine 3.9 H (0.8-1.5) mg/dL Glucose 70 L (75-100) mg/dL Calcium 8.5 (8.4-10.2) mg/dL - Imaging and Cardiology EKG: report reviewed, image reviewed Echo: report reviewed, image reviewed - Telemetry EKG Rhythm: Atrial Fibrillation
--- NOTE | 2016-12-09 09:32 | Progress Note ---
Assessment and Plan Assessment: * Acute kidney injury secondary to ATN - s/p HD initiation on 12/08 * Acute hypoxic respiratory failure on mechanical ventilation * GI bleed * Anemia secondary to GI bleed * EGD w/o active bleeding Plan: * Continue hemodialysis - HD treatment today, UF as tolerated * Vent management per pulmonary/critical care * Transfuse blood products per primary team * Avoid potential nephrotoxins * Dose medications for renal function * Monitor for evidence of renal recovery Subjective Date of service: 12/09/16 Principal diagnosis: cardiac arrest Interval history: 24h events noted. Patient s/p HD initiation on 12/08. Patient with dark stools overnight. ACVC FiO2 30, TV 450, Rate 12, PEEP 5 Objective - Vital Signs Vital signs: Vital Signs - 12hr 12/08/16 12/08/16 12/08/16 21:35 22:00 23:00 Temperature Pulse Rate 83 91 H Pulse Rate [ Anterior Bilateral Throughout] Respiratory 19 11 L Rate Respiratory Rate [Anterior Bilateral Throughout] Respiratory 18 Rate [ Generalized] Blood Pressure 97/52 108/58 O2 Sat by Pulse 100 98 100 Oximetry 12/08/16 12/08/16 12/09/16 23:25 23:26 00:00 Temperature Pulse Rate 88 93 H 87 Pulse Rate [ Anterior Bilateral Throughout] Respiratory 13 19 Rate Respiratory Rate [Anterior Bilateral Throughout] Respiratory 18 Rate [ Generalized] Blood Pressure 99/59 100/51 O2 Sat by Pulse 100 100 100 Oximetry 12/09/16 12/09/16 12/09/16 01:00 01:25 02:00 Temperature Pulse Rate 90 83 Pulse Rate [ Anterior Bilateral Throughout] Respiratory 12 11 L Rate Respiratory Rate [Anterior Bilateral Throughout] Respiratory Rate [ Generalized] Blood Pressure 110/56 97/56 O2 Sat by Pulse 100 100 40 L Oximetry 12/09/16 12/09/16 12/09/16 03:00 03:05 03:23 Temperature 98.5 F Pulse Rate 85 Pulse Rate [ Anterior Bilateral Throughout] Respiratory 16 Rate Respiratory Rate [Anterior Bilateral Throughout] Respiratory Rate [ Generalized] Blood Pressure 114/66 O2 Sat by Pulse 100 Oximetry 12/09/16 12/09/16 12/09/16 04:00 04:05 04:58 Temperature Pulse Rate 88 88 Pulse Rate [ Anterior Bilateral Throughout] Respiratory 17 13 Rate Respiratory Rate [Anterior Bilateral Throughout] Respiratory Rate [ Generalized] Blood Pressure 109/68 O2 Sat by Pulse 100 100 Oximetry 12/09/16 12/09/16 12/09/16 05:07 06:00 07:00 Temperature Pulse Rate 83 94 H 97 H Pulse Rate [ Anterior Bilateral Throughout] Respiratory 15 20 22 Rate Respiratory Rate [Anterior Bilateral Throughout] Respiratory Rate [ Generalized] Blood Pressure 119/67 114/53 O2 Sat by Pulse 100 100 100 Oximetry 12/09/16 12/09/16 12/09/16 07:38 07:44 07:57 Temperature Pulse Rate 92 H Pulse Rate [ 96 H 110 H Anterior Bilateral Throughout] Respiratory Rate Respiratory 25 H 26 H Rate [Anterior Bilateral Throughout] Respiratory Rate [ Generalized] Blood Pressure 111/61 O2 Sat by Pulse 100 Oximetry 12/09/16 08:00 Temperature Pulse Rate 113 H Pulse Rate [ Anterior Bilateral Throughout] Respiratory 13 Rate Respiratory Rate [Anterior Bilateral Throughout] Respiratory Rate [ Generalized] Blood Pressure 111/61 O2 Sat by Pulse 100 Oximetry - General Appearance General appearance: intubated EENT: ATNC, other (ETT in place) Respiratory: Present: Other (coarse BS bilaterally) Cardiology: regular, S1S2 Gastrointestinal: no distended Integumentary: other (bandages to bilateral ankles) Neurologic: other (intubated) Musculoskeletal: other (1+ pitting edema - thigh) - Lab 12/09/16 05:50 12/09/16 05:50 Most recent lab results Calcium 8.5 mg/dL (8.4-10.2) 12/09/16 05:50 Magnesium 2.10 mg/dL (1.7-2.3) 12/08/16 04:00 Urine Creatinine 78.6 mg/dL (0.1-20.0) H 11/30/16 10:00 Urine Sodium 10 mEq/L 11/30/16 10:00
[2016-12-09] MEDS ORDERED: NACL 0.9% 100 ML IV PRN (09:45)
[2016-12-09] MEDS ORDERED: PEPCID IV SCH (10:00)
[2016-12-09] MEDS: HALDOL IV PRN (10:20)
[2016-12-09] MEDS: PROTONIX FEEDTUBE SCH ×2 (10:21→21:38)
[2016-12-09] MEDS: DAKIN'S HALF STRENGTH TP SCH ×2 (10:21→21:35)
[2016-12-09] MEDS: TRIPLE ANTIBIOTIC TP SCH (10:21)
[2016-12-09] MEDS ORDERED: ALBURX 25% (ALBUMIN) IV PRN (11:00)
[2016-12-09 13:10] LABS: ISTAT Base Excess -1; ISTAT HCO3 23.1; ISTAT PCO2 34.1 (35-45); ISTAT PH 7.438 (7.35-7.45); ISTAT PO2 79 (80-105); ISTAT SO2 96; ISTAT TCO2 24
[2016-12-09] MEDS: HEPARIN IV PRN (15:30)
[2016-12-09] MEDS: ROCEPHIN/NS 1 GM/50 ML 1 GM/50 ML BAG IV SCH (17:56)
--- NOTE | 2016-12-09 18:36 | Progress Note ---
Assessment and Plan Assessment and plan: Gertrude was admitted to the floor for the management of bilateral leg ulcer while there the patient had difficulty of breathing while eating and then he went to asystole and He was successfully resuscitated then transfer to the ICU. Sean has VF while he was resuscitated and He was shocked one times. Asystole, Respiratory failure secondary to chocking and aspiration - S/P in house hospital cardiac arrest - Intubated on mechanical ventilation - Continue IV Rocephin Lactic acidosis - on sodium bicarbonate and IV fluids Bilateral DM leg ulcer - sensitivity is back and sensitive to ceftriaxone. DM - Sliding scale insulin Acute on chronic kidney disease - patient may need dialyis The high probability of a clinically significant, sudden or life threatening deterioration of the [neurology, CV, repiratory] system(s) required my full and direct attention, intervention and personal management. The aggregate critical care time was [31] minutes. This time is in addition to time spent performing reported procedures but includes the following: [x] Data Review and interpretation [x] Patient assessment and monitoring of vital signs [x] Documentation [x] Medication orders and management Hypertension CAD Chronic systolic heart failure - Patient is on Unasyn and vancomycin, ID consult appreciated - Doppler ultrasound of the legs is normal - Pulmonary consult appreciated - Nephrology consult appreciated DVT prophylaxis - Heparin Disposition Continue ICU care History Interval history: Patient was seen and evaluated this morning, he intubated and on mechanical ventilation. Hospitalist Physical - Physical exam Narrative exam: Intubated and on mechanical ventilation. The patient appeared well nourished and normally developed. Vital signs as documented. Head exam is unremarkable. No scleral icterus . Neck is without jugular venous distension, thyromegaly, or carotid bruits. Lungs are clear to auscultation. Cardiac exam reveals regular rate and Rhythm. First and second heart sounds normal. No murmurs, rubs or gallops. Abdominal exam reveals normal bowel sounds, no masses, no organomegaly and no aortic enlargement. Extremities significant for bilateral leg ulcer around the calf area with offensive discharge. 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 - Constitutional Vitals: Temp Pulse Resp BP Pulse Ox 98.1 F 86 12 119/69 100 12/09/16 15:25 12/09/16 17:44 12/09/16 17:01 12/09/16 17:44 12/09/16 17:44 General appearance: Present: no acute distress, other (orally intubated on ventilatory support and sedated) Results - Labs CBC & Chem 7: 12/09/16 05:50 12/09/16 05:50 Labs: Laboratory Last Values WBC 17.6 K/mm3 (4.5-11.0) H 12/09/16 05:50 RBC 3.48 M/mm3 (3.65-5.03) L 12/09/16 05:50 Hgb 9.5 gm/dl (11.8-15.2) L 12/09/16 05:50 Hct 29.2 % (35.5-45.6) L 12/09/16 05:50 MCV 84 fl (84-94) 12/09/16 05:50 MCH 27 pg (28-32) L 12/09/16 05:50 MCHC 33 % (32-34) 12/09/16 05:50 RDW 15.8 % (13.2-15.2) H 12/09/16 05:50 Plt Count 75 K/mm3 (140-440) L 12/09/16 05:50 Lymph % (Auto) 1.5 % (13.4-35.0) L 12/08/16 04:00 [place] % (Auto) 9.1 % (0.0-7.3) H 12/08/16 04:00 Eos % (Auto) 0.7 % (0.0-4.3) 12/08/16 04:00 Baso % (Auto) 0.1 % (0.0-1.8) 12/08/16 04:00 Lymph # 0.2 K/mm3 (1.2-5.4) L 12/08/16 04:00 [place] # 1.2 K/mm3 (0.0-0.8) H 12/08/16 04:00 Eos # 0.1 K/mm3 (0.0-0.4) 12/08/16 04:00 Baso # 0.0 K/mm3 (0.0-0.1) 12/08/16 04:00 Add Manual Diff Complete 12/09/16 05:50 Total Counted 100 12/09/16 05:50 Seg Neutrophils % Photographic Editor 12/09/16 05:50 Seg Neuts % (Manual) 94.0 % (40.0-70.0) H 12/09/16 05:50 Band Neutrophils % 0 % 12/09/16 05:50 Lymphocytes % (Manual) 2.0 % (13.4-35.0) L 12/09/16 05:50 Reactive Lymphs % (Man) 0 % 12/09/16 05:50 Monocytes % (Manual) 3.0 % (0.0-7.3) 12/09/16 05:50 Eosinophils % (Manual) 1.0 % (0.0-4.3) 12/09/16 05:50 Basophils % (Manual) 0 % (0.0-1.8) 12/09/16 05:50 Metamyelocytes % 0 % 12/09/16 05:50 Myelocytes % 0 % 12/09/16 05:50 Promyelocytes % 0 % 12/09/16 05:50 Blast Cells % 0 % 12/09/16 05:50 Nucleated RBC % Not Reportable 12/09/16 05:50 Seg Neutrophils # 11.7 K/mm3 (1.8-7.7) H 12/08/16 04:00 Seg Neutrophils # Man 16.5 K/mm3 (1.8-7.7) H 12/09/16 05:50 Band Neutrophils # 0.0 K/mm3 12/09/16 05:50 Lymphocytes # (Manual) 0.4 K/mm3 (1.2-5.4) L 12/09/16 05:50 Abs React Lymphs (Man) 0.0 K/mm3 12/09/16 05:50 Monocytes # (Manual) 0.5 K/mm3 (0.0-0.8) 12/09/16 05:50 Eosinophils # (Manual) 0.2 K/mm3 (0.0-0.4) 12/09/16 05:50 Basophils # (Manual) 0.0 K/mm3 (0.0-0.1) 12/09/16 05:50 Metamyelocytes # 0.0 K/mm3 12/09/16 05:50 Myelocytes # 0.0 K/mm3 12/09/16 05:50 Promyelocytes # 0.0 K/mm3 12/09/16 05:50 Blast Cells # 0.0 K/mm3 12/09/16 05:50 WBC Morphology Not Reportable 12/09/16 05:50 Hypersegmented Neuts Not Reportable 12/09/16 05:50 Hyposegmented Neuts Not Reportable 12/09/16 05:50 Hypogranular Neuts Not Reportable 12/09/16 05:50 Smudge Cells Not Reportable 12/09/16 05:50 Toxic Granulation Not Reportable 12/09/16 05:50 Toxic Vacuolation Not Reportable 12/09/16 05:50 Dohle Bodies Not Reportable 12/09/16 05:50 Pelger-Huet Anomaly Not Reportable 12/09/16 05:50 Demetra Rods Not Reportable 12/09/16 05:50 Platelet Estimate Consistent w auto 12/09/16 05:50 Clumped Platelets Not Reportable 12/09/16 05:50 Plt Clumps, EDTA Not Reportable 12/09/16 05:50 Large Platelets Not Reportable 12/09/16 05:50 Giant Platelets Not Reportable 12/09/16 05:50 Platelet Satelliting Not Reportable 12/09/16 05:50 Plt Morphology Comment Not Reportable 12/09/16 05:50 RBC Morphology Not Reportable 12/09/16 05:50 Dimorphic RBCs Not Reportable 12/09/16 05:50 Polychromasia Not Reportable 12/09/16 05:50 Hypochromasia Few 12/09/16 05:50 Poikilocytosis Not Reportable 12/09/16 05:50 Anisocytosis 1+ 12/09/16 05:50 Microcytosis Not Reportable 12/09/16 05:50 Macrocytosis Not Reportable 12/09/16 05:50 Spherocytes Not Reportable 12/09/16 05:50 Pappenheimer Bodies Not Reportable 12/09/16 05:50 Sickle Cells Not Reportable 12/09/16 05:50 Target Cells Few 12/09/16 05:50 Tear Drop Cells Not Reportable 12/09/16 05:50 Ovalocytes Not Reportable 12/09/16 05:50 Helmet Cells Not Reportable 12/09/16 05:50 [place] Bodies Not Reportable 12/09/16 05:50 [place] Rings Not Reportable 12/09/16 05:50 [place] Cells Not Reportable 12/09/16 05:50 Bite Cells Not Reportable 12/09/16 05:50 Crenated Cell Not Reportable 12/09/16 05:50 Elliptocytes Not Reportable 12/09/16 05:50 Acanthocytes (Spur) Not Reportable 12/09/16 05:50 Rouleaux Not Reportable 12/09/16 05:50 Hemoglobin C Crystals Not Reportable 12/09/16 05:50 Schistocytes Few 12/09/16 05:50 Malaria parasites Not Reportable 12/09/16 05:50 [place] Bodies Not Reportable 12/09/16 05:50 Hem Pathologist Commnt No 12/09/16 05:50 PT 16.6 Sec. (12.2-14.9) H 12/02/16 19:20 INR 1.27 (0.87-1.13) H 12/02/16 19:20 APTT 45.4 Sec. (24.2-36.6) H 12/02/16 19:20 Heparin Anti-Xa Level < 0.10 U.I./ml (0.3-0.7) L 12/03/16 01:15 POC ABG pH 7.438 (7.35-7.45) 12/09/16 12:16 POC ABG pCO2 34.1 (35-45) L 12/09/16 12:16 POC ABG pO2 79 (80-105) L 12/09/16 12:16 POC ABG HCO3 23.1 12/09/16 12:16 POC ABG Total CO2 24 12/09/16 12:16 POC ABG O2 Sat 96 12/09/16 12:16 POC ABG Base Excess -1 12/09/16 12:16 FiO2 30 % 12/09/16 12:16 Sodium 139 mmol/L (137-145) 12/09/16 05:50 Potassium 4.5 mmol/L (3.6-5.0) 12/09/16 05:50 Chloride 101.9 mmol/L (98-107) 12/09/16 05:50 Carbon Dioxide 22 mmol/L (22-30) 12/09/16 05:50 Anion Gap 20 mmol/L 12/09/16 05:50 BUN 92 mg/dL (9-20) H 12/09/16 05:50 Creatinine 3.9 mg/dL (0.8-1.5) H 12/09/16 05:50 Estimated GFR 19 ml/min 12/09/16 05:50 BUN/Creatinine Ratio 23.58 % 12/09/16 05:50 Glucose 70 mg/dL (75-100) L 12/09/16 05:50 POC Glucose 146 (70-105) H 12/09/16 17:52 Hemoglobin A1c 10.6 % (4-6) H 11/28/16 16:02 Lactic Acid 2.60 mmol/L (0.7-2.0) H* 12/04/16 13:22 Calcium 8.5 mg/dL (8.4-10.2) 12/09/16 05:50 Magnesium 2.10 mg/dL (1.7-2.3) 12/08/16 04:00 Total Bilirubin 2.00 mg/dL (0.1-1.2) H 12/08/16 04:00 AST 35 units/L (5-40) 12/08/16 04:00 ALT 37 units/L (7-56) 12/08/16 04:00 Alkaline Phosphatase 132 units/L (35-129) H 12/08/16 04:00 Ammonia 90.0 umol/L (25-60) H 12/08/16 11:50 Total Creatine Kinase 59 units/L (55-170) 12/02/16 19:23 CK-MB (CK-2) 1.9 ng/mL (0.0-4.0) 12/02/16 19:23 CK-MB (CK-2) Rel Index 3.2 (0-4) 12/02/16 19:23 Troponin T 0.098 ng/mL (0.00-0.029) H 12/03/16 08:01 Total Protein 5.6 g/dL (6.3-8.2) L 12/08/16 04:00 Albumin 2.6 g/dL (3.9-5) L 12/08/16 04:00 Albumin/Globulin Ratio 0.9 % 12/08/16 04:00 Triglycerides 72 mg/dL (2-149) 11/30/16 20:37 Cholesterol 132 mg/dL (50-199) 11/30/16 20:37 LDL Cholesterol Direct 82 mg/dL (50-130) 11/30/16 20:37 HDL Cholesterol 36 mg/dL (40-59) L 11/30/16 20:37 Cholesterol/HDL Ratio 3.66 % 11/30/16 20:37 TSH 0.764 mlU/mL (0.270-4.200) 12/08/16 11:50 Urine Color Yellow (Yellow) 11/30/16 10:00 Urine Turbidity Clear (Clear) 11/30/16 10:00 Urine pH 6.0 (5.0-7.0) 11/30/16 10:00 Ur Specific [place] 1.018 (1.003-1.030) 11/30/16 10:00 Urine Protein 30 mg/dl mg/dL (Negative) 11/30/16 10:00 Urine Glucose (UA) Neg mg/dL (Negative) 11/30/16 10:00 Urine Ketones Neg mg/dL (Negative) 11/30/16 10:00 Urine Blood Neg (Negative) 11/30/16 10:00 Urine Nitrite Neg (Negative) 11/30/16 10:00 Urine Bilirubin Neg (Negative) 11/30/16 10:00 Urine Urobilinogen < 2.0 mg/dL (<2.0) 11/30/16 10:00 Ur Leukocyte Esterase Tr (Negative) 11/30/16 10:00 Urine WBC (Auto) 2.0 /HPF (0.0-6.0) 11/30/16 10:00 Urine RBC (Auto) < 1.0 /HPF (0.0-6.0) 11/30/16 10:00 U Epithel Cells (Auto) < 1.0 /HPF (0-13.0) 11/30/16 10:00 Urine Eosinophils None seen (None Seen) 11/30/16 10:00 Urine Creatinine 78.6 mg/dL (0.1-20.0) H 11/30/16 10:00 Urine Sodium 10 mEq/L 11/30/16 10:00 Vancomycin Trough 19.0 ug/mL (5.0-20.0) 12/03/16 06:04 Random Vancomycin 24.7 ug/mL (0-40.0) 12/05/16 05:00 Hepatitis A IgM Ab Non-reactive (NonReactive) 12/08/16 12:20 Hep Bs Antigen Non-reactive (Negative) 12/08/16 12:20 Hep B Core IgM Ab Non-reactive (NonReactive) 12/08/16 12:20 Hepatitis C Antibody Non-reactive (NonReactive) 12/08/16 12:20 Blood Type B POSITIVE 12/07/16 16:09 Antibody Screen TNR 12/07/16 16:09 RHONDA Antibody Screen Negative 12/07/16 16:09 Crossmatch See Detail 12/07/16 16:09
[2016-12-09] MEDS: COREG PO SCH (21:39)
[2016-12-10 06:23] LABS: ISTAT Base Excess 3; ISTAT PCO2 32.8 (35-45); ISTAT PH 7.508 (7.35-7.45); ISTAT PO2 95 (80-105); ISTAT SO2 98; ISTAT TCO2 27
[2016-12-10 08:58] LABS: Hemoglobin 8.7 gm/dl (11.8-15.2)
[2016-12-10] MEDS: TRIPLE ANTIBIOTIC TP SCH (09:40)
[2016-12-10] MEDS: PROTONIX FEEDTUBE SCH ×2 (09:40→21:29)
[2016-12-10] MEDS: COREG PO SCH (09:40)
[2016-12-10] MEDS: DAKIN'S HALF STRENGTH TP SCH (09:47)
[2016-12-10] MEDS: NOVOLOG SUB-Q SCH ×3 (09:47→18:56)
[2016-12-10 10:38] LABS: ISTAT Base Excess 4; ISTAT PCO2 29.1 (35-45); ISTAT PH 7.558 (7.35-7.45); ISTAT PO2 72 (80-105); ISTAT SO2 96; ISTAT TCO2 27
[2016-12-10] MEDS: HALDOL IV PRN (10:52)
--- NOTE | 2016-12-10 11:02 | Progress Note ---
Assessment and Plan Respiratory failure on vent Status post cardiac arrest Acute on chronic systolic heart failure Coronary disease Peripheral vascular disease with left leg ulcer Hypertension Hyperlipidemia Diabetes End-stage renal disease on hemodialysis Anemia secondary GI bleed Recommend continue low-dose Coreg patient will titrate CHF meds as BP tolerates patient has hemodialysis floor fluid removal as patient's mental status improves exhibitions per the energy systems engineer Subjective Date of service: 12/10/16 Principal diagnosis: bilateral leg wounds; TREMAINE Interval history: Patient awake on the vent ,restrained Objective Vital Signs Temp Pulse Resp Resp BP Pulse Ox Pulse Ox 12/10/16 10:00 96 H 22 124/66 100 12/10/16 09:45 91 H 22 124/66 100 12/10/16 09:40 85 124/66 12/10/16 09:00 87 13 133/87 100 12/10/16 08:31 86 18 133/87 100 12/10/16 08:00 99.0 F 124 H 16 114/61 100 12/10/16 07:00 96 H 20 114/61 100 12/10/16 06:10 81 109/63 100 12/10/16 06:00 101 H 19 109/63 100 12/10/16 05:48 142 F H 12/10/16 05:00 86 15 109/62 100 12/10/16 04:15 100 12/10/16 04:01 92 H 102/61 100 12/10/16 04:00 88 18 102/61 100 12/10/16 03:47 99.6 F 12/10/16 03:00 89 19 102/61 100 12/10/16 02:28 18 100 12/10/16 02:00 93 H 18 112/64 100 12/10/16 01:00 87 12 112/64 100 12/10/16 00:04 95 H 14 103/63 100 12/10/16 00:00 83 18 108/67 12/09/16 23:52 88 108/67 100 12/09/16 23:33 19 100 12/09/16 23:26 99.2 F 12/09/16 23:00 82 16 93/57 100 12/09/16 22:00 83 10 L 93/57 100 12/09/16 21:39 85 93/57 12/09/16 21:00 84 19 85/63 100 12/09/16 20:02 88 97/53 100 06/30/17 20:00 102 H 16 97/53 100 12/09/16 19:41 98.4 F 12/09/16 19:00 83 19 19 97/53 100 12/09/16 18:00 89 16 95/51 100 12/09/16 17:44 86 119/69 100 12/09/16 17:01 85 12 114/68 99 12/09/16 17:00 84 11 L 100/58 99 12/09/16 16:00 82 11 L 101/55 100 12/09/16 15:25 98.1 F 120 H 22 117/74 100 12/09/16 15:15 114 H 121/64 12/09/16 15:03 99 H 122/69 12/09/16 15:00 104 H 18 105/61 100 12/09/16 14:45 92 H 105/61 12/09/16 14:29 81 112/67 12/09/16 14:15 92 H 128/65 12/09/16 14:00 104 H 19 128/65 100 12/09/16 13:45 117 H 138/85 12/09/16 13:30 119 H 110/66 12/09/16 13:15 104 H 136/73 12/09/16 13:01 120 H 115/66 12/09/16 13:00 114 H 26 H 115/66 100 12/09/16 12:44 86 93/51 12/09/16 12:30 88 94/54 12/09/16 12:10 87 93/54 12/09/16 12:02 97 H 11 L 103/49 100 12/09/16 12:00 98.1 F 95 H 18 93/44 100 100 - Physical Examination General: Other ( Intubated, awake) HEENT: Positive: Normocephaly, Mucus Membranes Moist Neck: Positive: neck supple, trachea midline Cardiac: Positive: Reg Rate and Rhythm Lungs: Positive: clear to auscultation Neuro: Positive: Other (awake) Abdomen: Positive: Soft, Active Bowel Sounds Skin: Positive: Clear, Other (Multiple ulcers in the legs - Dressing in situ.). Negative: Rash Musculoskeletal: other (Dressing in situ (multiple ulcers in the legs).) Extremities: Absent: lower extr. pulses, edema (trace LE edema) - Labs and Meds CBC 12/10/16 Range/Units 08:30 Hgb 8.7 L (11.8-15.2) gm/dl Hct 27.0 L (35.5-45.6) % Plt Count 71 L (140-440) K/mm3 - Imaging and Cardiology EKG: report reviewed, image reviewed (12/03/2016 severe LV dysfunction by ventricle dysfunction EF 15-20% mild to moderate mitral regurgitation mild to moderate tricuspid regurgitation with pulmonary hypertension) Echo: report reviewed, image reviewed - Telemetry EKG Rhythm: Paced
--- NOTE | 2016-12-10 11:37 | Progress Note ---
Assessment and Plan Assessment and Plan Acute resp Failure on vent ETT Acute on chronic renal failure on HD Sp cardiopulmonary arrest AMS improving Infected ulcers Will continue on AC attempt cpap again in am. Possible extubation continue local wound care continue on meds monitor resp status closely HD as per renal [id number] Subjective Principal diagnosis: bilateral leg wounds; TREMAINE Interval history: was on cpap now back on ac on HD Objective Vital Signs - 12hr 12/09/16 12/10/16 12/10/16 23:52 00:00 00:04 Temperature Pulse Rate 88 83 95 H Respiratory 18 14 Rate Blood Pressure 108/67 108/67 103/63 O2 Sat by Pulse 100 100 Oximetry 12/10/16 12/10/16 12/10/16 01:00 02:00 02:28 Temperature Pulse Rate 87 93 H Respiratory 12 18 18 Rate Blood Pressure 112/64 112/64 O2 Sat by Pulse 100 100 100 Oximetry 12/10/16 12/10/16 12/10/16 03:00 03:47 04:00 Temperature 99.6 F Pulse Rate 89 88 Respiratory 19 18 Rate Blood Pressure 102/61 102/61 O2 Sat by Pulse 100 100 Oximetry 12/10/16 12/10/16 12/10/16 04:01 04:15 05:00 Temperature Pulse Rate 92 H 86 Respiratory 15 Rate Blood Pressure 102/61 109/62 O2 Sat by Pulse 100 100 100 Oximetry 12/10/16 12/10/16 12/10/16 05:48 06:00 06:10 Temperature 142 F H Pulse Rate 101 H 81 Respiratory 19 Rate Blood Pressure 109/63 109/63 O2 Sat by Pulse 100 100 Oximetry 12/10/16 12/10/16 12/10/16 07:00 08:00 08:31 Temperature 99.0 F Pulse Rate 96 H 124 H 86 Respiratory 20 16 18 Rate Blood Pressure 114/61 114/61 133/87 O2 Sat by Pulse 100 100 100 Oximetry 12/10/16 12/10/16 12/10/16 09:00 09:40 09:45 Temperature Pulse Rate 87 85 91 H Respiratory 13 22 Rate Blood Pressure 133/87 124/66 124/66 O2 Sat by Pulse 100 100 Oximetry 12/10/16 12/10/16 10:00 11:00 Temperature Pulse Rate 96 H 88 Respiratory 22 27 H Rate Blood Pressure 124/66 120/70 O2 Sat by Pulse 100 100 Oximetry ac 16 tv 450 35% P5 Constitutional: alert Eyes: other (pupils reactive and equal) ENT: other (orally intubated) Neck: supple, no JVD Ascultation: Bilateral: clear, diminished breath sounds, rales (anteriorly), rhonchi Percussion: Bilateral: not dull Cardiovascular: other (pacemaker rhythm) Gastrointestinal: normoactive bowel sounds, soft, non-distended Integumentary: normal Extremities: no edema, cool Neurologic: pupils equal and round, other (moving spontaneously,RASS 0-1) CBC and BMP: 12/10/16 08:30 12/09/16 05:50 ABG, PT/INR, D-dimer: ABG POC ABG pH 7.558 (7.35-7.45) H 12/10/16 09:45 POC ABG pCO2 29.1 (35-45) L 12/10/16 09:45 POC ABG pO2 72 (80-105) L 12/10/16 09:45 POC ABG HCO3 26.0 12/10/16 09:45 POC ABG Total CO2 27 12/10/16 09:45 POC ABG O2 Sat 96 12/10/16 09:45 PT/INR, D-dimer PT 16.6 Sec. (12.2-14.9) H 12/02/16 19:20 INR 1.27 (0.87-1.13) H 12/02/16 19:20 Abnormal lab findings: Abnormal Labs 11/28/16 11/28/16 11/28/16 14:16 16:02 16:02 WBC RBC Hgb Hct MCV MCH MCHC RDW Plt Count Lymph % (Auto) [place] % (Auto) Lymph # [place] # Seg Neutrophils % Seg Neuts % (Manual) Lymphocytes % (Manual) Monocytes % (Manual) Seg Neutrophils # Seg Neutrophils # Man Lymphocytes # (Manual) Monocytes # (Manual) PT 17.3 H INR 1.42 H APTT 38.0 H Heparin Anti-Xa Level POC ABG pH POC ABG pCO2 POC ABG pO2 Sodium Potassium 3.3 L Chloride 96.0 L Carbon Dioxide BUN 100 H Creatinine 3.4 H Glucose 235 H POC Glucose 500 H Hemoglobin A1c Lactic Acid Calcium Total Bilirubin Alkaline Phosphatase Ammonia Troponin T Total Protein Albumin HDL Cholesterol Urine Creatinine Crossmatch 11/28/16 11/28/16 11/29/16 16:02 21:30 05:50 WBC RBC Hgb Hct MCV MCH MCHC RDW Plt Count Lymph % (Auto) [place] % (Auto) Lymph # [place] # Seg Neutrophils % Seg Neuts % (Manual) Lymphocytes % (Manual) Monocytes % (Manual) Seg Neutrophils # Seg Neutrophils # Man Lymphocytes # (Manual) Monocytes # (Manual) PT INR APTT Heparin Anti-Xa Level POC ABG pH POC ABG pCO2 POC ABG pO2 Sodium Potassium Chloride Carbon Dioxide BUN Creatinine Glucose POC Glucose 68 L 40 L Hemoglobin A1c 10.6 H Lactic Acid Calcium Total Bilirubin Alkaline Phosphatase Ammonia Troponin T Total Protein Albumin HDL Cholesterol Urine Creatinine Crossmatch 11/29/16 11/29/16 11/29/16 06:33 08:37 08:37 WBC RBC Hgb 10.2 L Hct 30.9 L MCV MCH MCHC RDW 16.0 H Plt Count 104 L Lymph % (Auto) 2.4 L [place] % (Auto) 8.5 H Lymph # 0.2 L [place] # 0.9 H Seg Neutrophils % 89.0 H Seg Neuts % (Manual) Lymphocytes % (Manual) Monocytes % (Manual) Seg Neutrophils # 9.2 H Seg Neutrophils # Man Lymphocytes # (Manual) Monocytes # (Manual) PT INR APTT Heparin Anti-Xa Level POC ABG pH POC ABG pCO2 POC ABG pO2 Sodium Potassium Chloride Carbon Dioxide BUN 95 H Creatinine 2.9 H Glucose POC Glucose 57 L Hemoglobin A1c Lactic Acid Calcium Total Bilirubin Alkaline Phosphatase Ammonia Troponin T Total Protein Albumin HDL Cholesterol Urine Creatinine Crossmatch 11/29/16 11/29/16 11/29/16 11:41 12:48 15:44 WBC RBC Hgb Hct MCV MCH MCHC RDW Plt Count Lymph % (Auto) [place] % (Auto) Lymph # [place] # Seg Neutrophils % Seg Neuts % (Manual) Lymphocytes % (Manual) Monocytes % (Manual) Seg Neutrophils # Seg Neutrophils # Man Lymphocytes # (Manual) Monocytes # (Manual) PT INR APTT Heparin Anti-Xa Level POC ABG pH POC ABG pCO2 POC ABG pO2 Sodium Potassium Chloride Carbon Dioxide BUN Creatinine Glucose POC Glucose 48 L 143 H 138 H Hemoglobin A1c Lactic Acid Calcium Total Bilirubin Alkaline Phosphatase Ammonia Troponin T Total Protein Albumin HDL Cholesterol Urine Creatinine Crossmatch 11/29/16 11/29/16 11/30/16 21:04 22:26 06:11 WBC RBC Hgb Hct MCV MCH MCHC RDW Plt Count Lymph % (Auto) [place] % (Auto) Lymph # [place] # Seg Neutrophils % Seg Neuts % (Manual) Lymphocytes % (Manual) Monocytes % (Manual) Seg Neutrophils # Seg Neutrophils # Man Lymphocytes # (Manual) Monocytes # (Manual) PT INR APTT Heparin Anti-Xa Level POC ABG pH POC ABG pCO2 POC ABG pO2 Sodium Potassium Chloride Carbon Dioxide BUN Creatinine Glucose POC Glucose 49 L 165 H 121 H Hemoglobin A1c Lactic Acid Calcium Total Bilirubin Alkaline Phosphatase Ammonia Troponin T Total Protein Albumin HDL Cholesterol Urine Creatinine Crossmatch 11/30/16 11/30/16 11/30/16 08:53 08:53 10:00 WBC RBC Hgb 10.9 L Hct 33.2 L MCV MCH MCHC RDW 16.3 H Plt Count 96 L Lymph % (Auto) [place] % (Auto) Lymph # [place] # Seg Neutrophils % Seg Neuts % (Manual) 91.0 H Lymphocytes % (Manual) 2.0 L Monocytes % (Manual) Seg Neutrophils # Seg Neutrophils # Man 9.3 H Lymphocytes # (Manual) 0.2 L Monocytes # (Manual) PT INR APTT Heparin Anti-Xa Level POC ABG pH POC ABG pCO2 POC ABG pO2 Sodium Potassium Chloride Carbon Dioxide BUN 78 H Creatinine 2.3 H Glucose 139 H POC Glucose Hemoglobin A1c Lactic Acid Calcium 8.3 L Total Bilirubin Alkaline Phosphatase Ammonia Troponin T Total Protein Albumin HDL Cholesterol Urine Creatinine 78.6 H Crossmatch 11/30/16 11/30/16 11/30/16 11:23 17:43 20:23 WBC RBC Hgb Hct MCV MCH MCHC RDW Plt Count Lymph % (Auto) [place] % (Auto) Lymph # [place] # Seg Neutrophils % Seg Neuts % (Manual) Lymphocytes % (Manual) Monocytes % (Manual) Seg Neutrophils # Seg Neutrophils # Man Lymphocytes # (Manual) Monocytes # (Manual) PT INR APTT Heparin Anti-Xa Level POC ABG pH POC ABG pCO2 POC ABG pO2 Sodium Potassium Chloride Carbon Dioxide BUN Creatinine Glucose POC Glucose 169 H 57 L 69 L Hemoglobin A1c Lactic Acid Calcium Total Bilirubin Alkaline Phosphatase Ammonia Troponin T Total Protein Albumin HDL Cholesterol Urine Creatinine Crossmatch 11/30/16 11/30/16 12/01/16 20:37 22:12 05:30 WBC RBC Hgb Hct MCV MCH MCHC RDW Plt Count Lymph % (Auto) [place] % (Auto) Lymph # [place] # Seg Neutrophils % Seg Neuts % (Manual) Lymphocytes % (Manual) Monocytes % (Manual) Seg Neutrophils # Seg Neutrophils # Man Lymphocytes # (Manual) Monocytes # (Manual) PT INR APTT Heparin Anti-Xa Level POC ABG pH POC ABG pCO2 POC ABG pO2 Sodium Potassium Chloride Carbon Dioxide BUN Creatinine Glucose POC Glucose 107 H 151 H Hemoglobin A1c Lactic Acid Calcium Total Bilirubin Alkaline Phosphatase Ammonia Troponin T 0.033 H Total Protein Albumin HDL Cholesterol 36 L Urine Creatinine Crossmatch 12/01/16 12/01/16 12/01/16 07:39 07:39 11:48 WBC 12.9 H RBC Hgb 10.9 L Hct 33.2 L MCV MCH MCHC RDW 16.6 H Plt Count 94 L Lymph % (Auto) [place] % (Auto) Lymph # [place] # Seg Neutrophils % Seg Neuts % (Manual) 98.0 H Lymphocytes % (Manual) 0 L Monocytes % (Manual) Seg Neutrophils # Seg Neutrophils # Man 12.6 H Lymphocytes # (Manual) 0.0 L Monocytes # (Manual) PT INR APTT Heparin Anti-Xa Level POC ABG pH POC ABG pCO2 POC ABG pO2 Sodium Potassium Chloride Carbon Dioxide BUN 71 H Creatinine 2.1 H Glucose POC Glucose 193 H Hemoglobin A1c Lactic Acid Calcium 8.1 L Total Bilirubin Alkaline Phosphatase Ammonia Troponin T Total Protein Albumin HDL Cholesterol Urine Creatinine Crossmatch 12/01/16 12/01/16 12/02/16 17:02 21:17 06:05 WBC RBC Hgb Hct MCV MCH MCHC RDW Plt Count Lymph % (Auto) [place] % (Auto) Lymph # [place] # Seg Neutrophils % Seg Neuts % (Manual) Lymphocytes % (Manual) Monocytes % (Manual) Seg Neutrophils # Seg Neutrophils # Man Lymphocytes # (Manual) Monocytes # (Manual) PT INR APTT Heparin Anti-Xa Level POC ABG pH POC ABG pCO2 POC ABG pO2 Sodium Potassium Chloride Carbon Dioxide BUN Creatinine Glucose POC Glucose 170 H 156 H < 40 L Hemoglobin A1c Lactic Acid Calcium Total Bilirubin Alkaline Phosphatase Ammonia Troponin T Total Protein Albumin HDL Cholesterol Urine Creatinine Crossmatch 12/02/16 12/02/16 12/02/16 06:34 06:41 07:48 WBC RBC Hgb 10.2 L Hct 31.4 L MCV MCH 27 L MCHC RDW 16.3 H Plt Count 89 L Lymph % (Auto) [place] % (Auto) Lymph # [place] # Seg Neutrophils % Seg Neuts % (Manual) 87.0 H Lymphocytes % (Manual) 7.0 L Monocytes % (Manual) Seg Neutrophils # Seg Neutrophils # Man 8.9 H Lymphocytes # (Manual) 0.7 L Monocytes # (Manual) PT INR APTT Heparin Anti-Xa Level POC ABG pH POC ABG pCO2 POC ABG pO2 Sodium Potassium Chloride Carbon Dioxide BUN Creatinine Glucose POC Glucose 141 H 124 H Hemoglobin A1c Lactic Acid Calcium Total Bilirubin Alkaline Phosphatase Ammonia Troponin T Total Protein Albumin HDL Cholesterol Urine Creatinine Crossmatch 12/02/16 12/02/16 12/02/16 07:48 12:22 18:02 WBC RBC Hgb Hct MCV MCH MCHC RDW Plt Count Lymph % (Auto) [place] % (Auto) Lymph # [place] # Seg Neutrophils % Seg Neuts % (Manual) Lymphocytes % (Manual) Monocytes % (Manual) Seg Neutrophils # Seg Neutrophils # Man Lymphocytes # (Manual) Monocytes # (Manual) PT INR APTT Heparin Anti-Xa Level POC ABG pH POC ABG pCO2 POC ABG pO2 Sodium 136 L Potassium Chloride Carbon Dioxide BUN 75 H Creatinine 2.7 H Glucose POC Glucose < 40 L 53 L Hemoglobin A1c Lactic Acid Calcium 7.9 L Total Bilirubin Alkaline Phosphatase Ammonia Troponin T Total Protein Albumin HDL Cholesterol Urine Creatinine Crossmatch 12/02/16 12/02/16 12/02/16 19:20 19:23 19:23 WBC 13.8 H RBC Hgb 10.9 L Hct 34.6 L MCV MCH 27 L MCHC 31 L RDW 16.2 H Plt Count 106 L Lymph % (Auto) [place] % (Auto) Lymph # [place] # Seg Neutrophils % Seg Neuts % (Manual) 86.0 H Lymphocytes % (Manual) 4.0 L Monocytes % (Manual) Seg Neutrophils # Seg Neutrophils # Man 11.9 H Lymphocytes # (Manual) 0.6 L Monocytes # (Manual) 1.0 H PT 16.6 H INR 1.27 H APTT 45.4 H Heparin Anti-Xa Level POC ABG pH POC ABG pCO2 POC ABG pO2 Sodium Potassium Chloride 95.8 L Carbon Dioxide BUN 75 H Creatinine 2.8 H Glucose 105 H POC Glucose Hemoglobin A1c Lactic Acid Calcium 7.8 L Total Bilirubin 2.70 H Alkaline Phosphatase Ammonia Troponin T Total Protein 6.0 L Albumin 2.7 L HDL Cholesterol Urine Creatinine Crossmatch 12/02/16 12/02/1612/03/17 19:39 21:14 01:15 WBC RBC Hgb Hct MCV MCH MCHC RDW Plt Count Lymph % (Auto) [place] % (Auto) Lymph # [place] # Seg Neutrophils % Seg Neuts % (Manual) Lymphocytes % (Manual) Monocytes % (Manual) Seg Neutrophils # Seg Neutrophils # Man Lymphocytes # (Manual) Monocytes # (Manual) PT INR APTT Heparin Anti-Xa Level < 0.10 L POC ABG pH 7.214 L POC ABG pCO2 54.0 H POC ABG pO2 227 H Sodium Potassium Chloride Carbon Dioxide BUN Creatinine Glucose POC Glucose 141 H Hemoglobin A1c Lactic Acid Calcium Total Bilirubin Alkaline Phosphatase Ammonia Troponin T Total Protein Albumin HDL Cholesterol Urine Creatinine Crossmatch 12/03/16 12/03/16 12/03/16 04:15 05:15 06:04 WBC 45.9 H* RBC Hgb 10.5 L Hct 32.9 L MCV MCH 27 L MCHC RDW 16.6 H Plt Count 101 L Lymph % (Auto) [place] % (Auto) Lymph # [place] # Seg Neutrophils % Seg Neuts % (Manual) Lymphocytes % (Manual) 8.0 L Monocytes % (Manual) 8.0 H Seg Neutrophils # Seg Neutrophils # Man 31.2 H Lymphocytes # (Manual) Monocytes # (Manual) 3.7 H PT INR APTT Heparin Anti-Xa Level POC ABG pH POC ABG pCO2 POC ABG pO2 72 L Sodium Potassium Chloride Carbon Dioxide BUN Creatinine Glucose POC Glucose 50 L Hemoglobin A1c Lactic Acid Calcium Total Bilirubin Alkaline Phosphatase Ammonia Troponin T Total Protein Albumin HDL Cholesterol Urine Creatinine Crossmatch 12/03/16 12/03/16 12/03/16 06:04 06:51 08:01 WBC RBC Hgb Hct MCV MCH MCHC RDW Plt Count Lymph % (Auto) [place] % (Auto) Lymph # [place] # Seg Neutrophils % Seg Neuts % (Manual) Lymphocytes % (Manual) Monocytes % (Manual) Seg Neutrophils # Seg Neutrophils # Man Lymphocytes # (Manual) Monocytes # (Manual) PT INR APTT Heparin Anti-Xa Level POC ABG pH POC ABG pCO2 POC ABG pO2 Sodium 128 L D Potassium 6.8 H* D Chloride 94.2 L Carbon Dioxide 17 L BUN 77 H Creatinine 2.6 H Glucose POC Glucose 118 H Hemoglobin A1c Lactic Acid Calcium 7.6 L Total Bilirubin Alkaline Phosphatase Ammonia Troponin T 0.098 H Total Protein Albumin HDL Cholesterol Urine Creatinine Crossmatch 12/03/16 12/03/16 12/03/16 08:13 09:44 12:19 WBC RBC Hgb Hct MCV MCH MCHC RDW Plt Count Lymph % (Auto) [place] % (Auto) Lymph # [place] # Seg Neutrophils % Seg Neuts % (Manual) Lymphocytes % (Manual) Monocytes % (Manual) Seg Neutrophils # Seg Neutrophils # Man Lymphocytes # (Manual) Monocytes # (Manual) PT INR APTT Heparin Anti-Xa Level POC ABG pH POC ABG pCO2 POC ABG pO2 Sodium Potassium Chloride Carbon Dioxide BUN Creatinine Glucose POC Glucose 107 H 115 H Hemoglobin A1c Lactic Acid 3.40 H* Calcium Total Bilirubin Alkaline Phosphatase Ammonia Troponin T Total Protein Albumin HDL Cholesterol Urine Creatinine Crossmatch 12/03/16 12/03/16 12/03/16 16:39 17:49 20:15 WBC 18.9 H RBC 3.04 L Hgb 8.4 L Hct 26.2 L MCV MCH MCHC RDW 16.6 H Plt Count 81 L Lymph % (Auto) [place] % (Auto) Lymph # [place] # Seg Neutrophils % Seg Neuts % (Manual) 94.0 H Lymphocytes % (Manual) 1.0 L Monocytes % (Manual) Seg Neutrophils # Seg Neutrophils # Man 17.8 H Lymphocytes # (Manual) 0.2 L Monocytes # (Manual) PT INR APTT Heparin Anti-Xa Level POC ABG pH POC ABG pCO2 POC ABG pO2 Sodium Potassium Chloride Carbon Dioxide BUN Creatinine Glucose POC Glucose 151 H Hemoglobin A1c Lactic Acid 3.10 H* Calcium Total Bilirubin Alkaline Phosphatase Ammonia Troponin T Total Protein Albumin HDL Cholesterol Urine Creatinine Crossmatch 12/03/16 12/03/16 12/03/16 23:34 Unknown Unknown WBC 22.2 H RBC 3.16 L Hgb 8.6 L Hct 27.3 L MCV MCH 27 L MCHC 31 L RDW 16.9 H Plt Count 81 L Lymph % (Auto) [place] % (Auto) Lymph # [place] # Seg Neutrophils % Seg Neuts % (Manual) Lymphocytes % (Manual) Monocytes % (Manual) Seg Neutrophils # Seg Neutrophils # Man Lymphocytes # (Manual) Monocytes # (Manual) PT INR APTT Heparin Anti-Xa Level POC ABG pH POC ABG pCO2 POC ABG pO2 Sodium 132 L Potassium Chloride 95.8 L Carbon Dioxide 19 L BUN 93 H Creatinine 3.4 H Glucose 130 H POC Glucose 188 H Hemoglobin A1c Lactic Acid Calcium 7.4 L Total Bilirubin Alkaline Phosphatase Ammonia Troponin T Total Protein Albumin HDL Cholesterol Urine Creatinine Crossmatch 12/04/16 12/04/16 12/04/16 04:57 05:45 06:00 WBC 17.8 H RBC 3.07 L Hgb 8.7 L Hct 26.1 L MCV MCH MCHC RDW 16.5 H Plt Count 93 L Lymph % (Auto) [place] % (Auto) Lymph # [place] # Seg Neutrophils % Seg Neuts % (Manual) 80.0 H Lymphocytes % (Manual) 7.0 L Monocytes % (Manual) Seg Neutrophils # Seg Neutrophils # Man 14.2 H Lymphocytes # (Manual) Monocytes # (Manual) 1.1 H PT INR APTT Heparin Anti-Xa Level POC ABG pH 7.277 L POC ABG pCO2 POC ABG pO2 198 H Sodium Potassium Chloride Carbon Dioxide BUN Creatinine Glucose POC Glucose 186 H Hemoglobin A1c Lactic Acid Calcium Total Bilirubin Alkaline Phosphatase Ammonia Troponin T Total Protein Albumin HDL Cholesterol Urine Creatinine Crossmatch 12/04/16 12/04/16 12/04/16 06:00 07:23 11:50 WBC RBC Hgb Hct MCV MCH MCHC RDW Plt Count Lymph % (Auto) [place] % (Auto) Lymph # [place] # Seg Neutrophils % Seg Neuts % (Manual) Lymphocytes % (Manual) Monocytes % (Manual) Seg Neutrophils # Seg Neutrophils # Man Lymphocytes # (Manual) Monocytes # (Manual) PT INR APTT Heparin Anti-Xa Level POC ABG pH POC ABG pCO2 POC ABG pO2 Sodium 133 L Potassium Chloride 96.0 L Carbon Dioxide 18 L BUN 103 H Creatinine 3.6 H Glucose 190 H POC Glucose 187 H 190 H Hemoglobin A1c Lactic Acid Calcium 7.7 L Total Bilirubin Alkaline Phosphatase Ammonia Troponin T Total Protein Albumin HDL Cholesterol Urine Creatinine Crossmatch 12/04/16 12/04/16 12/04/16 13:22 17:46 23:33 WBC RBC Hgb Hct MCV MCH MCHC RDW Plt Count Lymph % (Auto) [place] % (Auto) Lymph # [place] # Seg Neutrophils % Seg Neuts % (Manual) Lymphocytes % (Manual) Monocytes % (Manual) Seg Neutrophils # Seg Neutrophils # Man Lymphocytes # (Manual) Monocytes # (Manual) PT INR APTT Heparin Anti-Xa Level POC ABG pH POC ABG pCO2 POC ABG pO2 Sodium Potassium Chloride Carbon Dioxide BUN Creatinine Glucose POC Glucose 264 H 263 H Hemoglobin A1c Lactic Acid 2.60 H* Calcium Total Bilirubin Alkaline Phosphatase Ammonia Troponin T Total Protein Albumin HDL Cholesterol Urine Creatinine Crossmatch 12/05/16 12/05/16 12/05/16 05:00 05:00 05:17 WBC 17.1 H RBC 3.03 L Hgb 8.2 L Hct 25.9 L MCV MCH 27 L MCHC RDW 16.4 H Plt Count 81 L Lymph % (Auto) 1.3 L [place] % (Auto) 9.7 H Lymph # 0.2 L [place] # 1.7 H Seg Neutrophils % 88.9 H Seg Neuts % (Manual) Lymphocytes % (Manual) Monocytes % (Manual) Seg Neutrophils # 15.2 H Seg Neutrophils # Man Lymphocytes # (Manual) Monocytes # (Manual) PT INR APTT Heparin Anti-Xa Level POC ABG pH POC ABG pCO2 POC ABG pO2 Sodium 132 L Potassium Chloride 96.9 L Carbon Dioxide 19 L BUN 120 H Creatinine 4.8 H Glucose 193 H POC Glucose 229 H Hemoglobin A1c Lactic Acid Calcium 8.0 L Total Bilirubin Alkaline Phosphatase Ammonia Troponin T Total Protein Albumin HDL Cholesterol Urine Creatinine Crossmatch 12/05/16 12/05/16 12/05/16 06:00 11:46 17:53 WBC RBC Hgb Hct MCV MCH MCHC RDW Plt Count Lymph % (Auto) [place] % (Auto) Lymph # [place] # Seg Neutrophils % Seg Neuts % (Manual) Lymphocytes % (Manual) Monocytes % (Manual) Seg Neutrophils # Seg Neutrophils # Man Lymphocytes # (Manual) Monocytes # (Manual) PT INR APTT Heparin Anti-Xa Level POC ABG pH POC ABG pCO2 32.5 L POC ABG pO2 124 H Sodium Potassium Chloride Carbon Dioxide BUN Creatinine Glucose POC Glucose 139 H 170 H Hemoglobin A1c Lactic Acid Calcium Total Bilirubin Alkaline Phosphatase Ammonia Troponin T Total Protein Albumin HDL Cholesterol Urine Creatinine Crossmatch 12/05/16 12/06/16 12/06/16 23:24 04:20 05:57 WBC RBC Hgb Hct MCV MCH MCHC RDW Plt Count Lymph % (Auto) [place] % (Auto) Lymph # [place] # Seg Neutrophils % Seg Neuts % (Manual) Lymphocytes % (Manual) Monocytes % (Manual) Seg Neutrophils # Seg Neutrophils # Man Lymphocytes # (Manual) Monocytes # (Manual) PT INR APTT Heparin Anti-Xa Level POC ABG pH POC ABG pCO2 30.3 L POC ABG pO2 122 H Sodium Potassium Chloride Carbon Dioxide BUN Creatinine Glucose POC Glucose 153 H 166 H Hemoglobin A1c Lactic Acid Calcium Total Bilirubin Alkaline Phosphatase Ammonia Troponin T Total Protein Albumin HDL Cholesterol Urine Creatinine Crossmatch 12/06/16 12/06/16 12/06/16 06:00 06:00 11:32 WBC 18.1 H RBC 2.76 L Hgb 7.7 L Hct 23.4 L MCV MCH MCHC RDW 16.6 H Plt Count 62 L Lymph % (Auto) [place] % (Auto) Lymph # [place] # Seg Neutrophils % Seg Neuts % (Manual) 96.0 H Lymphocytes % (Manual) 0 L Monocytes % (Manual) Seg Neutrophils # Seg Neutrophils # Man 17.4 H Lymphocytes # (Manual) 0.0 L Monocytes # (Manual) PT INR APTT Heparin Anti-Xa Level POC ABG pH POC ABG pCO2 POC ABG pO2 Sodium 134 L Potassium Chloride 96.8 L Carbon Dioxide 19 L BUN 117 H Creatinine 4.9 H Glucose 179 H POC Glucose 300 H Hemoglobin A1c Lactic Acid Calcium 8.0 L Total Bilirubin Alkaline Phosphatase Ammonia Troponin T Total Protein Albumin HDL Cholesterol Urine Creatinine Crossmatch 12/06/16 12/06/16 12/06/16 11:33 18:11 23:23 WBC RBC Hgb Hct MCV MCH MCHC RDW Plt Count Lymph % (Auto) [place] % (Auto) Lymph # [place] # Seg Neutrophils % Seg Neuts % (Manual) Lymphocytes % (Manual) Monocytes % (Manual) Seg Neutrophils # Seg Neutrophils # Man Lymphocytes # (Manual) Monocytes # (Manual) PT INR APTT Heparin Anti-Xa Level POC ABG pH POC ABG pCO2 POC ABG pO2 Sodium Potassium Chloride Carbon Dioxide BUN Creatinine Glucose POC Glucose 204 H 246 H 225 H Hemoglobin A1c Lactic Acid Calcium Total Bilirubin Alkaline Phosphatase Ammonia Troponin T Total Protein Albumin HDL Cholesterol Urine Creatinine Crossmatch 12/07/16 12/07/16 12/07/16 04:50 05:19 05:40 WBC 15.6 H RBC 2.71 L Hgb 7.4 L Hct 22.6 L MCV 83 L MCH 27 L MCHC RDW 16.2 H Plt Count 61 L Lymph % (Auto) [place] % (Auto) Lymph # [place] # Seg Neutrophils % Seg Neuts % (Manual) 97.0 H Lymphocytes % (Manual) 0 L Monocytes % (Manual) Seg Neutrophils # Seg Neutrophils # Man 15.1 H Lymphocytes # (Manual) 0.0 L Monocytes # (Manual) PT INR APTT Heparin Anti-Xa Level POC ABG pH POC ABG pCO2 31.3 L POC ABG pO2 Sodium Potassium Chloride Carbon Dioxide BUN Creatinine Glucose POC Glucose 238 H Hemoglobin A1c Lactic Acid Calcium Total Bilirubin Alkaline Phosphatase Ammonia Troponin T Total Protein Albumin HDL Cholesterol Urine Creatinine Crossmatch 12/07/16 12/07/16 12/07/16 05:40 11:43 16:09 WBC RBC Hgb Hct MCV MCH MCHC RDW Plt Count Lymph % (Auto) [place] % (Auto) Lymph # [place] # Seg Neutrophils % Seg Neuts % (Manual) Lymphocytes % (Manual) Monocytes % (Manual) Seg Neutrophils # Seg Neutrophils # Man Lymphocytes # (Manual) Monocytes # (Manual) PT INR APTT Heparin Anti-Xa Level POC ABG pH POC ABG pCO2 POC ABG pO2 Sodium 136 L Potassium Chloride Carbon Dioxide 19 L BUN 122 H Creatinine 5.1 H Glucose 226 H POC Glucose 312 H Hemoglobin A1c Lactic Acid Calcium 7.9 L Total Bilirubin Alkaline Phosphatase Ammonia Troponin T Total Protein Albumin HDL Cholesterol Urine Creatinine Crossmatch See Detail 12/07/16 12/07/16 12/07/16 16:09 17:27 17:31 WBC RBC Hgb 7.0 L Hct 21.0 L MCV MCH MCHC RDW Plt Count Lymph % (Auto) [place] % (Auto) Lymph # [place] # Seg Neutrophils % Seg Neuts % (Manual) Lymphocytes % (Manual) Monocytes % (Manual) Seg Neutrophils # Seg Neutrophils # Man Lymphocytes # (Manual) Monocytes # (Manual) PT INR APTT Heparin Anti-Xa Level POC ABG pH POC ABG pCO2 POC ABG pO2 Sodium Potassium Chloride Carbon Dioxide BUN Creatinine Glucose POC Glucose 312 H 242 H Hemoglobin A1c Lactic Acid Calcium Total Bilirubin Alkaline Phosphatase Ammonia Troponin T Total Protein Albumin HDL Cholesterol Urine Creatinine Crossmatch 12/07/16 12/08/16 12/08/16 23:52 04:00 04:00 WBC 13.2 H RBC 2.50 L Hgb 7.0 L Hct 21.1 L MCV MCH MCHC RDW 16.8 H Plt Count 44 L Lymph % (Auto) 1.5 L [place] % (Auto) 9.1 H Lymph # 0.2 L [place] # 1.2 H Seg Neutrophils % 88.6 H Seg Neuts % (Manual) Lymphocytes % (Manual) Monocytes % (Manual) Seg Neutrophils # 11.7 H Seg Neutrophils # Man Lymphocytes # (Manual) Monocytes # (Manual) PT INR APTT Heparin Anti-Xa Level POC ABG pH POC ABG pCO2 POC ABG pO2 Sodium Potassium Chloride Carbon Dioxide 21 L BUN 127 H Creatinine 5.0 H Glucose 148 H POC Glucose 173 H Hemoglobin A1c Lactic Acid Calcium 8.2 L Total Bilirubin 2.00 H Alkaline Phosphatase 132 H Ammonia Troponin T Total Protein 5.6 L Albumin 2.6 L HDL Cholesterol Urine Creatinine Crossmatch 12/08/16 12/08/16 12/08/16 05:34 09:20 11:50 WBC RBC Hgb 6.9 L Hct 21.4 L MCV MCH MCHC RDW Plt Count Lymph % (Auto) [place] % (Auto) Lymph # [place] # Seg Neutrophils % Seg Neuts % (Manual) Lymphocytes % (Manual) Monocytes % (Manual) Seg Neutrophils # Seg Neutrophils # Man Lymphocytes # (Manual) Monocytes # (Manual) PT INR APTT Heparin Anti-Xa Level POC ABG pH POC ABG pCO2 POC ABG pO2 Sodium Potassium Chloride Carbon Dioxide BUN Creatinine Glucose POC Glucose 134 H Hemoglobin A1c Lactic Acid Calcium Total Bilirubin Alkaline Phosphatase Ammonia 90.0 H Troponin T Total Protein Albumin HDL Cholesterol Urine Creatinine Crossmatch 12/08/16 12/08/16 12/08/16 15:40 17:35 18:20 WBC RBC Hgb 9.2 L Hct 28.1 L D MCV MCH MCHC RDW Plt Count Lymph % (Auto) [place] % (Auto) Lymph # [place] # Seg Neutrophils % Seg Neuts % (Manual) Lymphocytes % (Manual) Monocytes % (Manual) Seg Neutrophils # Seg Neutrophils # Man Lymphocytes # (Manual) Monocytes # (Manual) PT INR APTT Heparin Anti-Xa Level POC ABG pH POC ABG pCO2 POC ABG pO2 Sodium Potassium Chloride Carbon Dioxide BUN Creatinine Glucose POC Glucose 111 H 146 H Hemoglobin A1c Lactic Acid Calcium Total Bilirubin Alkaline Phosphatase Ammonia Troponin T Total Protein Albumin HDL Cholesterol Urine Creatinine Crossmatch 12/09/16 12/09/16 12/09/16 00:10 04:13 05:50 WBC 17.6 H RBC 3.48 L Hgb 9.5 L Hct 29.2 L MCV MCH 27 L MCHC RDW 15.8 H Plt Count 75 L Lymph % (Auto) [place] % (Auto) Lymph # [place] # Seg Neutrophils % Seg Neuts % (Manual) 94.0 H Lymphocytes % (Manual) 2.0 L Monocytes % (Manual) Seg Neutrophils # Seg Neutrophils # Man 16.5 H Lymphocytes # (Manual) 0.4 L Monocytes # (Manual) PT INR APTT Heparin Anti-Xa Level POC ABG pH POC ABG pCO2 POC ABG pO2 107 H Sodium Potassium Chloride Carbon Dioxide BUN Creatinine Glucose POC Glucose 64 L Hemoglobin A1c Lactic Acid Calcium Total Bilirubin Alkaline Phosphatase Ammonia Troponin T Total Protein Albumin HDL Cholesterol Urine Creatinine Crossmatch 12/09/16 12/09/16 12/09/16 05:50 12:16 12:56 WBC RBC Hgb Hct MCV MCH MCHC RDW Plt Count Lymph % (Auto) [place] % (Auto) Lymph # [place] # Seg Neutrophils % Seg Neuts % (Manual) Lymphocytes % (Manual) Monocytes % (Manual) Seg Neutrophils # Seg Neutrophils # Man Lymphocytes # (Manual) Monocytes # (Manual) PT INR APTT Heparin Anti-Xa Level POC ABG pH POC ABG pCO2 34.1 L POC ABG pO2 79 L Sodium Potassium Chloride Carbon Dioxide BUN 92 H Creatinine 3.9 H Glucose 70 L POC Glucose 113 H Hemoglobin A1c Lactic Acid Calcium Total Bilirubin Alkaline Phosphatase Ammonia Troponin T Total Protein Albumin HDL Cholesterol Urine Creatinine Crossmatch 12/09/16 12/09/16 12/10/16 17:52 23:33 05:07 WBC RBC Hgb Hct MCV MCH MCHC RDW Plt Count Lymph % (Auto) [place] % (Auto) Lymph # [place] # Seg Neutrophils % Seg Neuts % (Manual) Lymphocytes % (Manual) Monocytes % (Manual) Seg Neutrophils # Seg Neutrophils # Man Lymphocytes # (Manual) Monocytes # (Manual) PT INR APTT Heparin Anti-Xa Level POC ABG pH POC ABG pCO2 POC ABG pO2 Sodium Potassium Chloride Carbon Dioxide BUN Creatinine Glucose POC Glucose 146 H 150 H 142 H Hemoglobin A1c Lactic Acid Calcium Total Bilirubin Alkaline Phosphatase Ammonia Troponin T Total Protein Albumin HDL Cholesterol Urine Creatinine Crossmatch 12/10/16 12/10/16 12/10/16 06:15 08:30 09:45 WBC RBC Hgb 8.7 L Hct 27.0 L MCV MCH MCHC RDW Plt Count 71 L Lymph % (Auto) [place] % (Auto) Lymph # [place] # Seg Neutrophils % Seg Neuts % (Manual) Lymphocytes % (Manual) Monocytes % (Manual) Seg Neutrophils # Seg Neutrophils # Man Lymphocytes # (Manual) Monocytes # (Manual) PT INR APTT Heparin Anti-Xa Level POC ABG pH 7.508 H 7.558 H POC ABG pCO2 32.8 L 29.1 L POC ABG pO2 72 L Sodium Potassium Chloride Carbon Dioxide BUN Creatinine Glucose POC Glucose Hemoglobin A1c Lactic Acid Calcium Total Bilirubin Alkaline Phosphatase Ammonia Troponin T Total Protein Albumin HDL Cholesterol Urine Creatinine Crossmatch
[2016-12-10] MEDS ORDERED: NACL 0.9% 1000 ML 2,000 ML ONE (11:42)
[2016-12-10] MEDS: ATIVAN IV PRN (13:10)
[2016-12-10] MEDS: HEPARIN IV PRN (13:14)
--- NOTE | 2016-12-10 13:44 | Progress Note ---
Assessment and Plan Assessment and plan: S/P in house cardiac arrest - Intubated on mechanical ventilation: extubation per engineering analyst Bilateral DM leg ulcer - treated with IV rocephin for 10days DM - Sliding scale insulin Acute on chronic kidney disease - patient is on dialysis Hypertension - Doesn't need antihypertensive medication CAD Chronic systolic heart failure - Low-dose carvedilol - Cardiology is on board Thrombocytopenia - We will monitor GI bleed - Secondary to gastritis/tendinitis -Continue PPI -H&H stable Diarrhea - Chek C. difficile DVT prophylaxis - SCD Disposition Continue ICU care The high probability of a clinically significant, sudden or life threatening deterioration of the [neurology, CV, repiratory] system(s) required my full and direct attention, intervention and personal management. The aggregate critical care time was [31] minutes. This time is in addition to time spent performing reported procedures but includes the following: [x] Data Review and interpretation [x] Patient assessment and monitoring of vital signs [x] Documentation [x] Medication orders and management History Interval history: Patient was seen and evaluated this morning, he intubated and on mechanical ventilation. Hospitalist Physical - Physical exam Narrative exam: Intubated and on mechanical ventilation. The patient appeared well nourished and normally developed. Vital signs as documented. Head exam is unremarkable. No scleral icterus . Neck is without jugular venous distension, thyromegaly, or carotid bruits. Lungs are clear to auscultation. Cardiac exam reveals regular rate and Rhythm. First and second heart sounds normal. No murmurs, rubs or gallops. Abdominal exam reveals normal bowel sounds, no masses, no organomegaly and no aortic enlargement. Extremities significant for bilateral leg ulcer around the calf area with offensive discharge. 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 - Constitutional Vitals: Temp Pulse Resp BP Pulse Ox 98.8 F 88 19 93/56 100 12/10/16 12:00 12/10/16 13:28 12/10/16 12:23 12/10/16 13:28 12/10/16 13:14 General appearance: Present: no acute distress, other (orally intubated on ventilatory support and sedated) Results - Labs CBC & Chem 7: 12/10/16 08:30 12/09/16 05:50 Labs: Laboratory Last Values WBC 17.6 K/mm3 (4.5-11.0) H 12/09/16 05:50 RBC 3.48 M/mm3 (3.65-5.03) L 12/09/16 05:50 Hgb 8.7 gm/dl (11.8-15.2) L 12/10/16 08:30 Hct 27.0 % (35.5-45.6) L 12/10/16 08:30 MCV 84 fl (84-94) 12/09/16 05:50 MCH 27 pg (28-32) L 12/09/16 05:50 MCHC 33 % (32-34) 12/09/16 05:50 RDW 15.8 % (13.2-15.2) H 12/09/16 05:50 Plt Count 71 K/mm3 (140-440) L 12/10/16 08:30 Lymph % (Auto) 1.5 % (13.4-35.0) L 12/08/16 04:00 [place] % (Auto) 9.1 % (0.0-7.3) H 12/08/16 04:00 Eos % (Auto) 0.7 % (0.0-4.3) 12/08/16 04:00 Baso % (Auto) 0.1 % (0.0-1.8) 12/08/16 04:00 Lymph # 0.2 K/mm3 (1.2-5.4) L 12/08/16 04:00 [place] # 1.2 K/mm3 (0.0-0.8) H 12/08/16 04:00 Eos # 0.1 K/mm3 (0.0-0.4) 12/08/16 04:00 Baso # 0.0 K/mm3 (0.0-0.1) 12/08/16 04:00 Add Manual Diff Complete 12/09/16 05:50 Total Counted 100 12/09/16 05:50 Seg Neutrophils % Vest [place] 12/09/16 05:50 Seg Neuts % (Manual) 94.0 % (40.0-70.0) H 12/09/16 05:50 Band Neutrophils % 0 % 12/09/16 05:50 Lymphocytes % (Manual) 2.0 % (13.4-35.0) L 12/09/16 05:50 Reactive Lymphs % (Man) 0 % 12/09/16 05:50 Monocytes % (Manual) 3.0 % (0.0-7.3) 12/09/16 05:50 Eosinophils % (Manual) 1.0 % (0.0-4.3) 12/09/16 05:50 Basophils % (Manual) 0 % (0.0-1.8) 12/09/16 05:50 Metamyelocytes % 0 % 12/09/16 05:50 Myelocytes % 0 % 12/09/16 05:50 Promyelocytes % 0 % 12/09/16 05:50 Blast Cells % 0 % 12/09/16 05:50 Nucleated RBC % Not Reportable 12/09/16 05:50 Seg Neutrophils # 11.7 K/mm3 (1.8-7.7) H 12/08/16 04:00 Seg Neutrophils # Man 16.5 K/mm3 (1.8-7.7) H 12/09/16 05:50 Band Neutrophils # 0.0 K/mm3 12/09/16 05:50 Lymphocytes # (Manual) 0.4 K/mm3 (1.2-5.4) L 12/09/16 05:50 Abs React Lymphs (Man) 0.0 K/mm3 12/09/16 05:50 Monocytes # (Manual) 0.5 K/mm3 (0.0-0.8) 12/09/16 05:50 Eosinophils # (Manual) 0.2 K/mm3 (0.0-0.4) 12/09/16 05:50 Basophils # (Manual) 0.0 K/mm3 (0.0-0.1) 12/09/16 05:50 Metamyelocytes # 0.0 K/mm3 12/09/16 05:50 Myelocytes # 0.0 K/mm3 12/09/16 05:50 Promyelocytes # 0.0 K/mm3 12/09/16 05:50 Blast Cells # 0.0 K/mm3 12/09/16 05:50 WBC Morphology Not Reportable 12/09/16 05:50 Hypersegmented Neuts Not Reportable 12/09/16 05:50 Hyposegmented Neuts Not Reportable 12/09/16 05:50 Hypogranular Neuts Not Reportable 12/09/16 05:50 Smudge Cells Not Reportable 12/09/16 05:50 Toxic Granulation Not Reportable 12/09/16 05:50 Toxic Vacuolation Not Reportable 12/09/16 05:50 Dohle Bodies Not Reportable 12/09/16 05:50 Pelger-Huet Anomaly Not Reportable 12/09/16 05:50 Demetra Rods Not Reportable 12/09/16 05:50 Platelet Estimate Consistent w auto 12/09/16 05:50 Clumped Platelets Not Reportable 12/09/16 05:50 Plt Clumps, EDTA Not Reportable 12/09/16 05:50 Large Platelets Not Reportable 12/09/16 05:50 Giant Platelets Not Reportable 12/09/16 05:50 Platelet Satelliting Not Reportable 12/09/16 05:50 Plt Morphology Comment Not Reportable 12/09/16 05:50 RBC Morphology Not Reportable 12/09/16 05:50 Dimorphic RBCs Not Reportable 12/09/16 05:50 Polychromasia Not Reportable 12/09/16 05:50 Hypochromasia Few 12/09/16 05:50 Poikilocytosis Not Reportable 12/09/16 05:50 Anisocytosis 1+ 12/09/16 05:50 Microcytosis Not Reportable 12/09/16 05:50 Macrocytosis Not Reportable 12/09/16 05:50 Spherocytes Not Reportable 12/09/16 05:50 Pappenheimer Bodies Not Reportable 12/09/16 05:50 Sickle Cells Not Reportable 12/09/16 05:50 Target Cells Few 12/09/16 05:50 Tear Drop Cells Not Reportable 12/09/16 05:50 Ovalocytes Not Reportable 12/09/16 05:50 Helmet Cells Not Reportable 12/09/16 05:50 Don-[place] Bodies Not Reportable 12/09/16 05:50 Tupman Rings Not Reportable 12/09/16 05:50 Genia Cells Not Reportable 12/09/16 05:50 Bite Cells Not Reportable 12/09/16 05:50 Crenated Cell Not Reportable 12/09/16 05:50 Elliptocytes Not Reportable 12/09/16 05:50 Acanthocytes (Spur) Not Reportable 12/09/16 05:50 Rouleaux Not Reportable 12/09/16 05:50 Hemoglobin C Crystals Not Reportable 12/09/16 05:50 Schistocytes Few 12/09/16 05:50 Malaria parasites Not Reportable 12/09/16 05:50 Romeo Bodies Not Reportable 12/09/16 05:50 Hem Pathologist Commnt No 12/09/16 05:50 PT 16.6 Sec. (12.2-14.9) H 12/02/16 19:20 INR 1.27 (0.87-1.13) H 12/02/16 19:20 APTT 45.4 Sec. (24.2-36.6) H 12/02/16 19:20 Heparin Anti-Xa Level < 0.10 U.I./ml (0.3-0.7) L 12/03/16 01:15 POC ABG pH 7.558 (7.35-7.45) H 12/10/16 09:45 POC ABG pCO2 29.1 (35-45) L 12/10/16 09:45 POC ABG pO2 72 (80-105) L 12/10/16 09:45 POC ABG HCO3 26.0 12/10/16 09:45 POC ABG Total CO2 27 12/10/16 09:45 POC ABG O2 Sat 96 12/10/16 09:45 POC ABG Base Excess 4 12/10/16 09:45 FiO2 30 % 12/10/16 09:45 Sodium 139 mmol/L (137-145) 12/09/16 05:50 Potassium 4.5 mmol/L (3.6-5.0) 12/09/16 05:50 Chloride 101.9 mmol/L (98-107) 12/09/16 05:50 Carbon Dioxide 22 mmol/L (22-30) 12/09/16 05:50 Anion Gap 20 mmol/L 12/09/16 05:50 BUN 92 mg/dL (9-20) H 12/09/16 05:50 Creatinine 3.9 mg/dL (0.8-1.5) H 12/09/16 05:50 Estimated GFR 19 ml/min 12/09/16 05:50 BUN/Creatinine Ratio 23.58 % 12/09/16 05:50 Glucose 70 mg/dL (75-100) L 12/09/16 05:50 POC Glucose 264 (70-105) H 12/10/16 12:06 Hemoglobin A1c 10.6 % (4-6) H 11/28/16 16:02 Lactic Acid 2.60 mmol/L (0.7-2.0) H* 12/04/16 13:22 Calcium 8.5 mg/dL (8.4-10.2) 12/09/16 05:50 Magnesium 2.10 mg/dL (1.7-2.3) 12/08/16 04:00 Total Bilirubin 2.00 mg/dL (0.1-1.2) H 12/08/16 04:00 AST 35 units/L (5-40) 12/08/16 04:00 ALT 37 units/L (7-56) 12/08/16 04:00 Alkaline Phosphatase 132 units/L (35-129) H 12/08/16 04:00 Ammonia 90.0 umol/L (25-60) H 12/08/16 11:50 Total Creatine Kinase 59 units/L (55-170) 12/02/16 19:23 CK-MB (CK-2) 1.9 ng/mL (0.0-4.0) 12/02/16 19:23 CK-MB (CK-2) Rel Index 3.2 (0-4) 12/02/16 19:23 Troponin T 0.098 ng/mL (0.00-0.029) H 12/03/16 08:01 Total Protein 5.6 g/dL (6.3-8.2) L 12/08/16 04:00 Albumin 2.6 g/dL (3.9-5) L 12/08/16 04:00 Albumin/Globulin Ratio 0.9 % 12/08/16 04:00 Triglycerides 72 mg/dL (2-149) 11/30/16 20:37 Cholesterol 132 mg/dL (50-199) 11/30/16 20:37 LDL Cholesterol Direct 82 mg/dL (50-130) 11/30/16 20:37 HDL Cholesterol 36 mg/dL (40-59) L 11/30/16 20:37 Cholesterol/HDL Ratio 3.66 % 11/30/16 20:37 TSH 0.764 mlU/mL (0.270-4.200) 12/08/16 11:50 Urine Color Yellow (Yellow) 11/30/16 10:00 Urine Turbidity Clear (Clear) 11/30/16 10:00 Urine pH 6.0 (5.0-7.0) 11/30/16 10:00 Ur Specific [place] 1.018 (1.003-1.030) 11/30/16 10:00 Urine Protein 30 mg/dl mg/dL (Negative) 11/30/16 10:00 Urine Glucose (UA) Neg mg/dL (Negative) 11/30/16 10:00 Urine Ketones Neg mg/dL (Negative) 11/30/16 10:00 Urine Blood Neg (Negative) 11/30/16 10:00 Urine Nitrite Neg (Negative) 11/30/16 10:00 Urine Bilirubin Neg (Negative) 11/30/16 10:00 Urine Urobilinogen < 2.0 mg/dL (<2.0) 11/30/16 10:00 Ur Leukocyte Esterase Tr (Negative) 11/30/16 10:00 Urine WBC (Auto) 2.0 /HPF (0.0-6.0) 11/30/16 10:00 Urine RBC (Auto) < 1.0 /HPF (0.0-6.0) 11/30/16 10:00 U Epithel Cells (Auto) < 1.0 /HPF (0-13.0) 11/30/16 10:00 Urine Eosinophils None seen (None Seen) 11/30/16 10:00 Urine Creatinine 78.6 mg/dL (0.1-20.0) H 11/30/16 10:00 Urine Sodium 10 mEq/L 11/30/16 10:00 Vancomycin Trough 19.0 ug/mL (5.0-20.0) 12/03/16 06:04 Random Vancomycin 24.7 ug/mL (0-40.0) 12/05/16 05:00 Hepatitis A IgM Ab Non-reactive (NonReactive) 12/08/16 12:20 Hep Bs Antigen Non-reactive (Negative) 12/08/16 12:20 Hep B Core IgM Ab Non-reactive (NonReactive) 12/08/16 12:20 Hepatitis C Antibody Non-reactive (NonReactive) 12/08/16 12:20 Blood Type B POSITIVE 12/07/16 16:09 Antibody Screen TNR 12/07/16 16:09 RHONDA Antibody Screen Negative 12/07/16 16:09 Crossmatch See Detail 12/07/16 16:09
--- NOTE | 2016-12-10 14:45 | Progress Note ---
Assessment and Plan Assessment: * Acute kidney injury secondary to ATN - s/p HD initiation on 12/08 * Acute hypoxic respiratory failure on mechanical ventilation * GI bleed * Anemia secondary to GI bleed * EGD w/o active bleeding Plan: * Hemodialysis today. UF as tolerated. * Reassess for HD need tomorrow * Vent management per pulmonary/critical care * Transfuse blood products per primary team * Avoid potential nephrotoxins * Dose medications for renal function * Monitor for evidence of renal recovery Subjective Date of service: 12/10/16 Principal diagnosis: bilateral leg wounds; TREMAINE Interval history: No acute events overnight. Objective - Vital Signs Vital signs: Vital Signs - 12hr 12/10/16 12/10/16 12/10/16 03:00 03:47 04:00 Temperature 99.6 F Pulse Rate 89 88 Respiratory 19 18 Rate Blood Pressure 102/61 102/61 O2 Sat by Pulse 100 100 Oximetry O2 Sat by Pulse Oximetry [ Anterior Bilateral Throughout] 12/10/16 12/10/16 12/10/16 04:01 04:15 05:00 Temperature Pulse Rate 92 H 86 Respiratory 15 Rate Blood Pressure 102/61 109/62 O2 Sat by Pulse 100 100 100 Oximetry O2 Sat by Pulse Oximetry [ Anterior Bilateral Throughout] 12/10/16 12/10/16 12/10/16 05:48 06:00 06:10 Temperature 142 F H Pulse Rate 101 H 81 Respiratory 19 Rate Blood Pressure 109/63 109/63 O2 Sat by Pulse 100 100 Oximetry O2 Sat by Pulse Oximetry [ Anterior Bilateral Throughout] 12/10/16 12/10/16 12/10/16 07:00 08:00 08:31 Temperature 99.0 F Pulse Rate 96 H 124 H 86 Respiratory 20 16 18 Rate Blood Pressure 114/61 114/61 133/87 O2 Sat by Pulse 100 100 100 Oximetry O2 Sat by Pulse Oximetry [ Anterior Bilateral Throughout] 12/10/16 12/10/16 12/10/16 09:00 09:40 09:45 Temperature Pulse Rate 87 85 91 H Respiratory 13 22 Rate Blood Pressure 133/87 124/66 124/66 O2 Sat by Pulse 100 100 Oximetry O2 Sat by Pulse Oximetry [ Anterior Bilateral Throughout] 12/10/16 12/10/16 12/10/16 10:00 11:00 11:30 Temperature Pulse Rate 96 H 88 79 Respiratory 22 27 H Rate Blood Pressure 124/66 120/70 128/58 O2 Sat by Pulse 100 100 Oximetry O2 Sat by Pulse Oximetry [ Anterior Bilateral Throughout] 12/10/16 12/10/16 12/10/16 11:45 11:49 12:00 Temperature 99.0 F 98.8 F Pulse Rate 89 79 92 H Respiratory 20 11 L Rate Blood Pressure 97/57 125/58 97/57 O2 Sat by Pulse 100 Oximetry O2 Sat by Pulse 100 Oximetry [ Anterior Bilateral Throughout] 12/10/16 12/10/16 12/10/16 12:15 12:23 12:30 Temperature Pulse Rate 98 H 94 H 90 Respiratory 19 Rate Blood Pressure 101/55 101/55 103/61 O2 Sat by Pulse 100 Oximetry O2 Sat by Pulse Oximetry [ Anterior Bilateral Throughout] 12/10/16 12/10/16 12/10/16 12:45 13:00 13:14 Temperature Pulse Rate 91 H 94 H 92 H Respiratory 10 L Rate Blood Pressure 130/72 136/72 109/63 O2 Sat by Pulse 100 100 Oximetry O2 Sat by Pulse Oximetry [ Anterior Bilateral Throughout] 12/10/16 12/10/16 12/10/16 13:15 13:25 13:30 Temperature Pulse Rate 91 H 87 88 Respiratory Rate Blood Pressure 109/63 87/46 93/56 O2 Sat by Pulse Oximetry O2 Sat by Pulse Oximetry [ Anterior Bilateral Throughout] 12/10/16 12/10/16 12/10/16 13:45 14:00 14:15 Temperature Pulse Rate 92 H 89 92 H Respiratory Rate Blood Pressure 91/63 107/48 91/46 O2 Sat by Pulse Oximetry O2 Sat by Pulse Oximetry [ Anterior Bilateral Throughout] 12/10/16 14:25 Temperature 98.8 F Pulse Rate 94 H Respiratory 15 Rate Blood Pressure 91/46 O2 Sat by Pulse Oximetry O2 Sat by Pulse Oximetry [ Anterior Bilateral Throughout] - General Appearance General appearance: intubated EENT: other (ETT in place) Respiratory: Present: Other (coarse BS) Cardiology: regular, S1S2 Gastrointestinal: normal, no tenderness, no distended Integumentary: no rash Musculoskeletal: other (+UE edema and +thigh edema) - Lab 12/10/16 08:30 12/09/16 05:50 Most recent lab results Calcium 8.5 mg/dL (8.4-10.2) 12/09/16 05:50 Magnesium 2.10 mg/dL (1.7-2.3) 12/08/16 04:00 Urine Creatinine 78.6 mg/dL (0.1-20.0) H 11/30/16 10:00 Urine Sodium 10 mEq/L 11/30/16 10:00
[2016-12-10] MEDS ORDERED: VASELINE LIP THERAPY TP PRN (21:30)
[2016-12-11] MEDS: COREG PO SCH ×3 (00:26→21:53)
[2016-12-11] MEDS: NOVOLOG SUB-Q SCH ×4 (00:26→18:24)
[2016-12-11] MEDS: DAKIN'S HALF STRENGTH TP SCH ×3 (00:27→21:56)
[2016-12-11] MEDS: PROVENTIL IH PRN (07:27)
[2016-12-11 09:19] LABS: ISTAT Base Excess 3; ISTAT HCO3 26.1; ISTAT PCO2 32.2 (35-45); ISTAT PH 7.517 (7.35-7.45); ISTAT PO2 97 (80-105); ISTAT SO2 98; ISTAT TCO2 27
[2016-12-11] MEDS: PROTONIX FEEDTUBE SCH ×2 (09:22→21:40)
[2016-12-11] MEDS: TRIPLE ANTIBIOTIC TP SCH (09:24)
--- NOTE | 2016-12-11 09:52 | Progress Note ---
Assessment and Plan Respiratory failure on vent Status post cardiac arrest Acute on chronic systolic heart failure Coronary disease Peripheral vascular disease with left leg ulcer Hypertension Hyperlipidemia Diabetes End-stage renal disease on hemodialysis Anemia secondary GI bleed AICD present Recommend continue low-dose Coreg patient will titrate CHF meds as BP tolerates patient has hemodialysis floor fluid removal as patient's mental status improves extubations as per the security screener Subjective Date of service: 12/11/16 Principal diagnosis: bilateral leg wounds; TREMAINE Interval history: pt intubated Objective Vital Signs Temp Pulse Pulse Pulse Resp Resp BP 12/11/16 09:31 12/11/16 09:05 94 H 22 93/60 12/11/16 08:01 90 19 93/60 12/11/16 08:00 12/11/16 07:52 98.3 F 12/11/16 07:46 96 H 22 12/11/16 07:27 94 H 24 12/11/16 07:25 102 H 24 101/57 12/11/16 07:21 86 101/57 12/11/16 07:00 85 15 101/57 12/11/16 06:00 91 H 19 96/53 12/11/16 05:01 88 16 93/62 12/11/16 04:01 84 13 95/67 12/11/16 04:00 97.8 F 99 H 21 12/11/16 03:01 90 21 93/54 12/11/16 02:00 89 10 L 121/59 12/11/16 01:00 84 12 122/62 12/11/16 00:46 83 121/59 12/11/16 00:26 90 121/59 12/11/16 00:00 97.2 F L 90 95 H 27 H 124/69 12/10/16 23:00 97/61 12/10/16 22:00 90 19 120/60 12/10/16 21:00 87 20 105/60 12/10/16 20:48 86 12 98/65 12/10/16 20:00 97.6 F 84 91 H 22 96/60 12/10/16 19:45 92 H 105/60 12/10/16 19:00 92 H 16 106/67 12/10/16 18:00 85 18 111/56 12/10/16 17:22 99 H 110/59 12/10/16 17:00 85 13 97/59 07/01/17 16:00 97.9 F 98 H 17 87/48 12/10/16 15:00 91 H 16 94/55 12/10/16 14:45 98.8 F 94 H 15 94/55 12/10/16 14:15 92 H 91/46 12/10/16 14:00 94 H 19 91/63 12/10/16 13:45 92 H 91/63 12/10/16 13:30 88 93/56 12/10/16 13:25 87 87/46 12/10/16 13:15 91 H 109/63 12/10/16 13:14 92 H 109/63 12/10/16 13:00 94 H 10 L 136/72 12/10/16 12:45 91 H 130/72 12/10/16 12:30 90 103/61 12/10/16 12:23 94 H 19 101/55 12/10/16 12:15 98 H 101/55 12/10/16 12:00 98.8 F 92 H 11 L 97/57 12/10/16 11:49 99.0 F 79 20 125/58 12/10/16 11:45 89 97/57 12/10/16 11:30 79 128/58 12/10/16 11:00 88 27 H 120/70 12/10/16 10:00 96 H 22 124/66 Pulse Ox Pulse Ox 12/11/16 09:31 100 12/11/16 09:05 99 12/11/16 08:01 100 12/11/16 08:00 100 12/11/16 07:52 12/11/16 07:46 12/11/16 07:27 12/11/16 07:25 100 12/11/16 07:21 100 12/11/16 07:00 100 12/11/16 06:00 100 12/11/16 05:01 100 12/11/16 04:01 99 12/11/16 04:00 100 12/11/16 03:01 100 12/11/16 02:00 100 12/11/16 01:00 100 12/11/16 00:46 100 12/11/16 00:26 12/11/16 00:00 100 12/10/16 23:00 100 12/10/16 22:00 100 12/10/16 21:00 12/10/16 20:48 12/10/16 20:00 12/10/16 19:45 12/10/16 19:00 12/10/16 18:00 12/10/16 17:22 95 12/10/16 17:00 12/10/16 16:00 12/10/16 15:00 12/10/16 14:45 12/10/16 14:15 12/10/16 14:00 12/10/16 13:45 12/10/16 13:30 12/10/16 13:25 12/10/16 13:15 12/10/16 13:14 12/10/16 13:00 12/10/16 12:45 12/10/16 12:30 12/10/16 12:23 12/10/16 12:15 12/10/16 12:00 12/10/16 11:49 12/10/16 11:45 12/10/16 11:30 12/10/16 11:00 12/10/16 10:00 100 - Physical Examination General: Other ( Intubated, awake) HEENT: Positive: Normocephaly, Mucus Membranes Moist Neck: Positive: neck supple, trachea midline Cardiac: Positive: Reg Rate and Rhythm Lungs: Positive: clear to auscultation Neuro: Positive: Other (awake) Abdomen: Positive: Soft, Active Bowel Sounds Skin: Positive: Clear, Other (Multiple ulcers in the legs - Dressing in situ.). Negative: Rash Musculoskeletal: other (Dressing in situ (multiple ulcers in the legs).) Extremities: Absent: lower extr. pulses, edema (trace LE edema) - Imaging and Cardiology EKG: report reviewed, image reviewed (12/03/2016 severe LV dysfunction by ventricle dysfunction EF 15-20% mild to moderate mitral regurgitation mild to moderate tricuspid regurgitation with pulmonary hypertension) Echo: report reviewed, image reviewed
--- NOTE | 2016-12-11 10:59 | Progress Note ---
Assessment and Plan - Patient Problems (1) Hx-sudden cardiac arrest Current Visit: Yes Status: Acute (2) Pulmonary hypertension Current Visit: Yes Status: Chronic (3) CAD (coronary artery disease) Current Visit: No Status: Chronic Qualifiers: Coronary Disease-Associated Artery/Lesion type: C [place] vs. transplanted heart: N Associated angina: A (4) COPD (chronic obstructive pulmonary disease) Current Visit: No Status: Chronic Qualifiers: COPD type: C Chronic bronchitis type: C Emphysema type: E (5) Diabetes Current Visit: No Status: Chronic Qualifiers: Diabetes mellitus type: D Diabetes mellitus complication status: D Diabetes mellitus complication detail: D Diabetic retinopathy severity: D Proliferative retinopathy type: P Diabetes mellitus macular edema: D Diabetes mellitus buttermaker insulin use: D Laterality: L Chronic kidney disease stage: C (6) HTN (hypertension) Current Visit: No Status: Chronic Qualifiers: Hypertension type: H (7) Hx of CABG Current Visit: No Status: Chronic (8) Ischemic cardiomyopathy Current Visit: No Status: Chronic (9) PAD (peripheral artery disease) Current Visit: No Status: Chronic (10) S/P CABG (coronary artery bypass graft) Current Visit: No Status: Chronic (11) S/P implantation of automatic cardioverter/defibrillator (AICD) Current Visit: No Status: Chronic (12) Infected pressure ulcer Current Visit: Yes Status: Acute Qualifiers: Pressure ulcer stage: P Subjective Principal diagnosis: bilateral leg wounds; TREMAINE Interval history: abg on cpap noted pt extubated Objective Vital Signs - 12hr 12/10/16 12/11/16 12/11/16 23:00 00:00 00:26 Temperature 97.2 F L Pulse Rate 90 90 Pulse Rate [ 95 H From Monitor] Pulse Rate [ Posterior Bilateral Throughout] Respiratory 27 H Rate Respiratory Rate [Posterior Bilateral Throughout] Blood Pressure 97/61 124/69 121/59 O2 Sat by Pulse 100 100 Oximetry 12/11/16 12/11/16 12/11/16 00:46 01:00 02:00 Temperature Pulse Rate 83 84 89 Pulse Rate [ From Monitor] Pulse Rate [ Posterior Bilateral Throughout] Respiratory 12 10 L Rate Respiratory Rate [Posterior Bilateral Throughout] Blood Pressure 121/59 122/62 121/59 O2 Sat by Pulse 100 100 100 Oximetry 12/11/16 12/11/16 12/11/16 03:01 04:00 04:01 Temperature 97.8 F Pulse Rate 90 84 Pulse Rate [ 99 H From Monitor] Pulse Rate [ Posterior Bilateral Throughout] Respiratory 21 21 13 Rate Respiratory Rate [Posterior Bilateral Throughout] Blood Pressure 93/54 95/67 O2 Sat by Pulse 100 100 99 Oximetry 12/11/16 12/11/16 12/11/16 05:01 06:00 07:00 Temperature Pulse Rate 88 91 H 85 Pulse Rate [ From Monitor] Pulse Rate [ Posterior Bilateral Throughout] Respiratory 16 19 15 Rate Respiratory Rate [Posterior Bilateral Throughout] Blood Pressure 93/62 96/53 101/57 O2 Sat by Pulse 100 100 100 Oximetry 12/11/16 12/11/16 12/11/16 07:21 07:25 07:27 Temperature Pulse Rate 86 102 H Pulse Rate [ From Monitor] Pulse Rate [ 94 H Posterior Bilateral Throughout] Respiratory 24 Rate Respiratory 24 Rate [Posterior Bilateral Throughout] Blood Pressure 101/57 101/57 O2 Sat by Pulse 100 100 Oximetry 12/11/16 12/11/16 12/11/16 07:46 07:52 08:00 Temperature 98.3 F Pulse Rate Pulse Rate [ From Monitor] Pulse Rate [ 96 H Posterior Bilateral Throughout] Respiratory Rate Respiratory 22 Rate [Posterior Bilateral Throughout] Blood Pressure O2 Sat by Pulse 100 Oximetry 12/11/16 12/11/16 12/11/16 08:01 09:01 09:05 Temperature Pulse Rate 90 89 94 H Pulse Rate [ From Monitor] Pulse Rate [ Posterior Bilateral Throughout] Respiratory 19 19 22 Rate Respiratory Rate [Posterior Bilateral Throughout] Blood Pressure 93/60 103/56 93/60 O2 Sat by Pulse 100 100 99 Oximetry 12/11/16 12/11/16 09:31 10:01 Temperature Pulse Rate 89 Pulse Rate [ From Monitor] Pulse Rate [ Posterior Bilateral Throughout] Respiratory 24 Rate Respiratory Rate [Posterior Bilateral Throughout] Blood Pressure 99/63 O2 Sat by Pulse 100 100 Oximetry Constitutional: alert Eyes: other (pupils reactive and equal) Neck: supple, no JVD Ascultation: Bilateral: clear, diminished breath sounds, rales (anteriorly), rhonchi Percussion: Bilateral: not dull Cardiovascular: other (pacemaker rhythm) Gastrointestinal: normoactive bowel sounds, soft, non-distended Integumentary: normal Extremities: no edema, cool Neurologic: pupils equal and round, other (moving spontaneously,RASS 0-1) CBC and BMP: 12/10/16 08:30 12/09/16 05:50 ABG, PT/INR, D-dimer: ABG POC ABG pH 7.517 (7.35-7.45) H 12/11/16 09:05 POC ABG pCO2 32.2 (35-45) L 12/11/16 09:05 POC ABG pO2 97 (80-105) 12/11/16 09:05 POC ABG HCO3 26.1 12/11/16 09:05 POC ABG Total CO2 27 12/11/16 09:05 POC ABG O2 Sat 98 12/11/16 09:05 PT/INR, D-dimer PT 16.6 Sec. (12.2-14.9) H 12/02/16 19:20 INR 1.27 (0.87-1.13) H 12/02/16 19:20 Abnormal lab findings: Abnormal Labs 11/28/16 11/28/16 11/28/16 14:16 16:02 16:02 WBC RBC Hgb Hct MCV MCH MCHC RDW Plt Count Lymph % (Auto) [place] % (Auto) Lymph # [place] # Seg Neutrophils % Seg Neuts % (Manual) Lymphocytes % (Manual) Monocytes % (Manual) Seg Neutrophils # Seg Neutrophils # Man Lymphocytes # (Manual) Monocytes # (Manual) PT 17.3 H INR 1.42 H APTT 38.0 H Heparin Anti-Xa Level POC ABG pH POC ABG pCO2 POC ABG pO2 Sodium Potassium 3.3 L Chloride 96.0 L Carbon Dioxide BUN 100 H Creatinine 3.4 H Glucose 235 H POC Glucose 500 H Hemoglobin A1c Lactic Acid Calcium Total Bilirubin Alkaline Phosphatase Ammonia Troponin T Total Protein Albumin HDL Cholesterol Urine Creatinine Crossmatch 11/28/16 11/28/16 11/29/16 16:02 21:30 05:50 WBC RBC Hgb Hct MCV MCH MCHC RDW Plt Count Lymph % (Auto) [place] % (Auto) Lymph # [place] # Seg Neutrophils % Seg Neuts % (Manual) Lymphocytes % (Manual) Monocytes % (Manual) Seg Neutrophils # Seg Neutrophils # Man Lymphocytes # (Manual) Monocytes # (Manual) PT INR APTT Heparin Anti-Xa Level POC ABG pH POC ABG pCO2 POC ABG pO2 Sodium Potassium Chloride Carbon Dioxide BUN Creatinine Glucose POC Glucose 68 L 40 L Hemoglobin A1c 10.6 H Lactic Acid Calcium Total Bilirubin Alkaline Phosphatase Ammonia Troponin T Total Protein Albumin HDL Cholesterol Urine Creatinine Crossmatch 11/29/16 11/29/16 11/29/16 06:33 08:37 08:37 WBC RBC Hgb 10.2 L Hct 30.9 L MCV MCH MCHC RDW 16.0 H Plt Count 104 L Lymph % (Auto) 2.4 L [place] % (Auto) 8.5 H Lymph # 0.2 L [place] # 0.9 H Seg Neutrophils % 89.0 H Seg Neuts % (Manual) Lymphocytes % (Manual) Monocytes % (Manual) Seg Neutrophils # 9.2 H Seg Neutrophils # Man Lymphocytes # (Manual) Monocytes # (Manual) PT INR APTT Heparin Anti-Xa Level POC ABG pH POC ABG pCO2 POC ABG pO2 Sodium Potassium Chloride Carbon Dioxide BUN 95 H Creatinine 2.9 H Glucose POC Glucose 57 L Hemoglobin A1c Lactic Acid Calcium Total Bilirubin Alkaline Phosphatase Ammonia Troponin T Total Protein Albumin HDL Cholesterol Urine Creatinine Crossmatch 11/29/16 11/29/16 11/29/16 11:41 12:48 15:44 WBC RBC Hgb Hct MCV MCH MCHC RDW Plt Count Lymph % (Auto) [place] % (Auto) Lymph # [place] # Seg Neutrophils % Seg Neuts % (Manual) Lymphocytes % (Manual) Monocytes % (Manual) Seg Neutrophils # Seg Neutrophils # Man Lymphocytes # (Manual) Monocytes # (Manual) PT INR APTT Heparin Anti-Xa Level POC ABG pH POC ABG pCO2 POC ABG pO2 Sodium Potassium Chloride Carbon Dioxide BUN Creatinine Glucose POC Glucose 48 L 143 H 138 H Hemoglobin A1c Lactic Acid Calcium Total Bilirubin Alkaline Phosphatase Ammonia Troponin T Total Protein Albumin HDL Cholesterol Urine Creatinine Crossmatch 11/29/16 11/29/16 11/30/16 21:04 22:26 06:11 WBC RBC Hgb Hct MCV MCH MCHC RDW Plt Count Lymph % (Auto) [place] % (Auto) Lymph # [place] # Seg Neutrophils % Seg Neuts % (Manual) Lymphocytes % (Manual) Monocytes % (Manual) Seg Neutrophils # Seg Neutrophils # Man Lymphocytes # (Manual) Monocytes # (Manual) PT INR APTT Heparin Anti-Xa Level POC ABG pH POC ABG pCO2 POC ABG pO2 Sodium Potassium Chloride Carbon Dioxide BUN Creatinine Glucose POC Glucose 49 L 165 H 121 H Hemoglobin A1c Lactic Acid Calcium Total Bilirubin Alkaline Phosphatase Ammonia Troponin T Total Protein Albumin HDL Cholesterol Urine Creatinine Crossmatch 11/30/16 11/30/16 11/30/16 08:53 08:53 10:00 WBC RBC Hgb 10.9 L Hct 33.2 L MCV MCH MCHC RDW 16.3 H Plt Count 96 L Lymph % (Auto) [place] % (Auto) Lymph # [place] # Seg Neutrophils % Seg Neuts % (Manual) 91.0 H Lymphocytes % (Manual) 2.0 L Monocytes % (Manual) Seg Neutrophils # Seg Neutrophils # Man 9.3 H Lymphocytes # (Manual) 0.2 L Monocytes # (Manual) PT INR APTT Heparin Anti-Xa Level POC ABG pH POC ABG pCO2 POC ABG pO2 Sodium Potassium Chloride Carbon Dioxide BUN 78 H Creatinine 2.3 H Glucose 139 H POC Glucose Hemoglobin A1c Lactic Acid Calcium 8.3 L Total Bilirubin Alkaline Phosphatase Ammonia Troponin T Total Protein Albumin HDL Cholesterol Urine Creatinine 78.6 H Crossmatch 11/30/16 11/30/16 11/30/16 11:23 17:43 20:23 WBC RBC Hgb Hct MCV MCH MCHC RDW Plt Count Lymph % (Auto) [place] % (Auto) Lymph # [place] # Seg Neutrophils % Seg Neuts % (Manual) Lymphocytes % (Manual) Monocytes % (Manual) Seg Neutrophils # Seg Neutrophils # Man Lymphocytes # (Manual) Monocytes # (Manual) PT INR APTT Heparin Anti-Xa Level POC ABG pH POC ABG pCO2 POC ABG pO2 Sodium Potassium Chloride Carbon Dioxide BUN Creatinine Glucose POC Glucose 169 H 57 L 69 L Hemoglobin A1c Lactic Acid Calcium Total Bilirubin Alkaline Phosphatase Ammonia Troponin T Total Protein Albumin HDL Cholesterol Urine Creatinine Crossmatch 11/30/16 11/30/16 12/01/16 20:37 22:12 05:30 WBC RBC Hgb Hct MCV MCH MCHC RDW Plt Count Lymph % (Auto) [place] % (Auto) Lymph # [place] # Seg Neutrophils % Seg Neuts % (Manual) Lymphocytes % (Manual) Monocytes % (Manual) Seg Neutrophils # Seg Neutrophils # Man Lymphocytes # (Manual) Monocytes # (Manual) PT INR APTT Heparin Anti-Xa Level POC ABG pH POC ABG pCO2 POC ABG pO2 Sodium Potassium Chloride Carbon Dioxide BUN Creatinine Glucose POC Glucose 107 H 151 H Hemoglobin A1c Lactic Acid Calcium Total Bilirubin Alkaline Phosphatase Ammonia Troponin T 0.033 H Total Protein Albumin HDL Cholesterol 36 L Urine Creatinine Crossmatch 06/22/17 06/22/17 06/22/17 07:39 07:39 11:48 WBC 12.9 H RBC Hgb 10.9 L Hct 33.2 L MCV MCH MCHC RDW 16.6 H Plt Count 94 L Lymph % (Auto) [place] % (Auto) Lymph # [place] # Seg Neutrophils % Seg Neuts % (Manual) 98.0 H Lymphocytes % (Manual) 0 L Monocytes % (Manual) Seg Neutrophils # Seg Neutrophils # Man 12.6 H Lymphocytes # (Manual) 0.0 L Monocytes # (Manual) PT INR APTT Heparin Anti-Xa Level POC ABG pH POC ABG pCO2 POC ABG pO2 Sodium Potassium Chloride Carbon Dioxide BUN 71 H Creatinine 2.1 H Glucose POC Glucose 193 H Hemoglobin A1c Lactic Acid Calcium 8.1 L Total Bilirubin Alkaline Phosphatase Ammonia Troponin T Total Protein Albumin HDL Cholesterol Urine Creatinine Crossmatch 12/01/16 12/01/16 12/02/16 17:02 21:17 06:05 WBC RBC Hgb Hct MCV MCH MCHC RDW Plt Count Lymph % (Auto) [place] % (Auto) Lymph # [place] # Seg Neutrophils % Seg Neuts % (Manual) Lymphocytes % (Manual) Monocytes % (Manual) Seg Neutrophils # Seg Neutrophils # Man Lymphocytes # (Manual) Monocytes # (Manual) PT INR APTT Heparin Anti-Xa Level POC ABG pH POC ABG pCO2 POC ABG pO2 Sodium Potassium Chloride Carbon Dioxide BUN Creatinine Glucose POC Glucose 170 H 156 H < 40 L Hemoglobin A1c Lactic Acid Calcium Total Bilirubin Alkaline Phosphatase Ammonia Troponin T Total Protein Albumin HDL Cholesterol Urine Creatinine Crossmatch 12/02/16 12/02/16 12/02/16 06:34 06:41 07:48 WBC RBC Hgb 10.2 L Hct 31.4 L MCV MCH 27 L MCHC RDW 16.3 H Plt Count 89 L Lymph % (Auto) [place] % (Auto) Lymph # [place] # Seg Neutrophils % Seg Neuts % (Manual) 87.0 H Lymphocytes % (Manual) 7.0 L Monocytes % (Manual) Seg Neutrophils # Seg Neutrophils # Man 8.9 H Lymphocytes # (Manual) 0.7 L Monocytes # (Manual) PT INR APTT Heparin Anti-Xa Level POC ABG pH POC ABG pCO2 POC ABG pO2 Sodium Potassium Chloride Carbon Dioxide BUN Creatinine Glucose POC Glucose 141 H 124 H Hemoglobin A1c Lactic Acid Calcium Total Bilirubin Alkaline Phosphatase Ammonia Troponin T Total Protein Albumin HDL Cholesterol Urine Creatinine Crossmatch 12/02/16 12/02/1617 07:48 12:22 18:02 WBC RBC Hgb Hct MCV MCH MCHC RDW Plt Count Lymph % (Auto) [place] % (Auto) Lymph # [place] # Seg Neutrophils % Seg Neuts % (Manual) Lymphocytes % (Manual) Monocytes % (Manual) Seg Neutrophils # Seg Neutrophils # Man Lymphocytes # (Manual) Monocytes # (Manual) PT INR APTT Heparin Anti-Xa Level POC ABG pH POC ABG pCO2 POC ABG pO2 Sodium 136 L Potassium Chloride Carbon Dioxide BUN 75 H Creatinine 2.7 H Glucose POC Glucose < 40 L 53 L Hemoglobin A1c Lactic Acid Calcium 7.9 L Total Bilirubin Alkaline Phosphatase Ammonia Troponin T Total Protein Albumin HDL Cholesterol Urine Creatinine Crossmatch 12/02/16 12/02/16 12/02/16 19:20 19:23 19:23 WBC 13.8 H RBC Hgb 10.9 L Hct 34.6 L MCV MCH 27 L MCHC 31 L RDW 16.2 H Plt Count 106 L Lymph % (Auto) [place] % (Auto) Lymph # [place] # Seg Neutrophils % Seg Neuts % (Manual) 86.0 H Lymphocytes % (Manual) 4.0 L Monocytes % (Manual) Seg Neutrophils # Seg Neutrophils # Man 11.9 H Lymphocytes # (Manual) 0.6 L Monocytes # (Manual) 1.0 H PT 16.6 H INR 1.27 H APTT 45.4 H Heparin Anti-Xa Level POC ABG pH POC ABG pCO2 POC ABG pO2 Sodium Potassium Chloride 95.8 L Carbon Dioxide BUN 75 H Creatinine 2.8 H Glucose 105 H POC Glucose Hemoglobin A1c Lactic Acid Calcium 7.8 L Total Bilirubin 2.70 H Alkaline Phosphatase Ammonia Troponin T Total Protein 6.0 L Albumin 2.7 L HDL Cholesterol Urine Creatinine Crossmatch 12/02/16 12/02/16 12/03/16 19:39 21:14 01:15 WBC RBC Hgb Hct MCV MCH MCHC RDW Plt Count Lymph % (Auto) [place] % (Auto) Lymph # [place] # Seg Neutrophils % Seg Neuts % (Manual) Lymphocytes % (Manual) Monocytes % (Manual) Seg Neutrophils # Seg Neutrophils # Man Lymphocytes # (Manual) Monocytes # (Manual) PT INR APTT Heparin Anti-Xa Level < 0.10 L POC ABG pH 7.214 L POC ABG pCO2 54.0 H POC ABG pO2 227 H Sodium Potassium Chloride Carbon Dioxide BUN Creatinine Glucose POC Glucose 141 H Hemoglobin A1c Lactic Acid Calcium Total Bilirubin Alkaline Phosphatase Ammonia Troponin T Total Protein Albumin HDL Cholesterol Urine Creatinine Crossmatch 12/03/16 12/03/16 12/03/16 04:15 05:15 06:04 WBC 45.9 H* RBC Hgb 10.5 L Hct 32.9 L MCV MCH 27 L MCHC RDW 16.6 H Plt Count 101 L Lymph % (Auto) [place] % (Auto) Lymph # [place] # Seg Neutrophils % Seg Neuts % (Manual) Lymphocytes % (Manual) 8.0 L Monocytes % (Manual) 8.0 H Seg Neutrophils # Seg Neutrophils # Man 31.2 H Lymphocytes # (Manual) Monocytes # (Manual) 3.7 H PT INR APTT Heparin Anti-Xa Level POC ABG pH POC ABG pCO2 POC ABG pO2 72 L Sodium Potassium Chloride Carbon Dioxide BUN Creatinine Glucose POC Glucose 50 L Hemoglobin A1c Lactic Acid Calcium Total Bilirubin Alkaline Phosphatase Ammonia Troponin T Total Protein Albumin HDL Cholesterol Urine Creatinine Crossmatch 12/03/16 12/03/16 12/03/16 06:04 06:51 08:01 WBC RBC Hgb Hct MCV MCH MCHC RDW Plt Count Lymph % (Auto) [place] % (Auto) Lymph # [place] # Seg Neutrophils % Seg Neuts % (Manual) Lymphocytes % (Manual) Monocytes % (Manual) Seg Neutrophils # Seg Neutrophils # Man Lymphocytes # (Manual) Monocytes # (Manual) PT INR APTT Heparin Anti-Xa Level POC ABG pH POC ABG pCO2 POC ABG pO2 Sodium 128 L D Potassium 6.8 H* D Chloride 94.2 L Carbon Dioxide 17 L BUN 77 H Creatinine 2.6 H Glucose POC Glucose 118 H Hemoglobin A1c Lactic Acid Calcium 7.6 L Total Bilirubin Alkaline Phosphatase Ammonia Troponin T 0.098 H Total Protein Albumin HDL Cholesterol Urine Creatinine Crossmatch 12/03/16 12/03/16 12/03/16 08:13 09:44 12:19 WBC RBC Hgb Hct MCV MCH MCHC RDW Plt Count Lymph % (Auto) [place] % (Auto) Lymph # [place] # Seg Neutrophils % Seg Neuts % (Manual) Lymphocytes % (Manual) Monocytes % (Manual) Seg Neutrophils # Seg Neutrophils # Man Lymphocytes # (Manual) Monocytes # (Manual) PT INR APTT Heparin Anti-Xa Level POC ABG pH POC ABG pCO2 POC ABG pO2 Sodium Potassium Chloride Carbon Dioxide BUN Creatinine Glucose POC Glucose 107 H 115 H Hemoglobin A1c Lactic Acid 3.40 H* Calcium Total Bilirubin Alkaline Phosphatase Ammonia Troponin T Total Protein Albumin HDL Cholesterol Urine Creatinine Crossmatch 12/03/16 12/03/16 12/03/16 16:39 17:49 20:15 WBC 18.9 H RBC 3.04 L Hgb 8.4 L Hct 26.2 L MCV MCH MCHC RDW 16.6 H Plt Count 81 L Lymph % (Auto) [place] % (Auto) Lymph # [place] # Seg Neutrophils % Seg Neuts % (Manual) 94.0 H Lymphocytes % (Manual) 1.0 L Monocytes % (Manual) Seg Neutrophils # Seg Neutrophils # Man 17.8 H Lymphocytes # (Manual) 0.2 L Monocytes # (Manual) PT INR APTT Heparin Anti-Xa Level POC ABG pH POC ABG pCO2 POC ABG pO2 Sodium Potassium Chloride Carbon Dioxide BUN Creatinine Glucose POC Glucose 151 H Hemoglobin A1c Lactic Acid 3.10 H* Calcium Total Bilirubin Alkaline Phosphatase Ammonia Troponin T Total Protein Albumin HDL Cholesterol Urine Creatinine Crossmatch 12/03/16 12/03/16 12/03/16 23:34 Unknown Unknown WBC 22.2 H RBC 3.16 L Hgb 8.6 L Hct 27.3 L MCV MCH 27 L MCHC 31 L RDW 16.9 H Plt Count 81 L Lymph % (Auto) [place] % (Auto) Lymph # [place] # Seg Neutrophils % Seg Neuts % (Manual) Lymphocytes % (Manual) Monocytes % (Manual) Seg Neutrophils # Seg Neutrophils # Man Lymphocytes # (Manual) Monocytes # (Manual) PT INR APTT Heparin Anti-Xa Level POC ABG pH POC ABG pCO2 POC ABG pO2 Sodium 132 L Potassium Chloride 95.8 L Carbon Dioxide 19 L BUN 93 H Creatinine 3.4 H Glucose 130 H POC Glucose 188 H Hemoglobin A1c Lactic Acid Calcium 7.4 L Total Bilirubin Alkaline Phosphatase Ammonia Troponin T Total Protein Albumin HDL Cholesterol Urine Creatinine Crossmatch 12/04/16 12/04/16 12/04/16 04:57 05:45 06:00 WBC 17.8 H RBC 3.07 L Hgb 8.7 L Hct 26.1 L MCV MCH MCHC RDW 16.5 H Plt Count 93 L Lymph % (Auto) [place] % (Auto) Lymph # [place] # Seg Neutrophils % Seg Neuts % (Manual) 80.0 H Lymphocytes % (Manual) 7.0 L Monocytes % (Manual) Seg Neutrophils # Seg Neutrophils # Man 14.2 H Lymphocytes # (Manual) Monocytes # (Manual) 1.1 H PT INR APTT Heparin Anti-Xa Level POC ABG pH 7.277 L POC ABG pCO2 POC ABG pO2 198 H Sodium Potassium Chloride Carbon Dioxide BUN Creatinine Glucose POC Glucose 186 H Hemoglobin A1c Lactic Acid Calcium Total Bilirubin Alkaline Phosphatase Ammonia Troponin T Total Protein Albumin HDL Cholesterol Urine Creatinine Crossmatch 12/04/16 12/04/16 12/04/16 06:00 07:23 11:50 WBC RBC Hgb Hct MCV MCH MCHC RDW Plt Count Lymph % (Auto) [place] % (Auto) Lymph # [place] # Seg Neutrophils % Seg Neuts % (Manual) Lymphocytes % (Manual) Monocytes % (Manual) Seg Neutrophils # Seg Neutrophils # Man Lymphocytes # (Manual) Monocytes # (Manual) PT INR APTT Heparin Anti-Xa Level POC ABG pH POC ABG pCO2 POC ABG pO2 Sodium 133 L Potassium Chloride 96.0 L Carbon Dioxide 18 L BUN 103 H Creatinine 3.6 H Glucose 190 H POC Glucose 187 H 190 H Hemoglobin A1c Lactic Acid Calcium 7.7 L Total Bilirubin Alkaline Phosphatase Ammonia Troponin T Total Protein Albumin HDL Cholesterol Urine Creatinine Crossmatch 12/04/16 12/04/16 12/04/16 13:22 17:46 23:33 WBC RBC Hgb Hct MCV MCH MCHC RDW Plt Count Lymph % (Auto) [place] % (Auto) Lymph # [place] # Seg Neutrophils % Seg Neuts % (Manual) Lymphocytes % (Manual) Monocytes % (Manual) Seg Neutrophils # Seg Neutrophils # Man Lymphocytes # (Manual) Monocytes # (Manual) PT INR APTT Heparin Anti-Xa Level POC ABG pH POC ABG pCO2 POC ABG pO2 Sodium Potassium Chloride Carbon Dioxide BUN Creatinine Glucose POC Glucose 264 H 263 H Hemoglobin A1c Lactic Acid 2.60 H* Calcium Total Bilirubin Alkaline Phosphatase Ammonia Troponin T Total Protein Albumin HDL Cholesterol Urine Creatinine Crossmatch 12/05/16 12/05/16 12/05/16 05:00 05:00 05:17 WBC 17.1 H RBC 3.03 L Hgb 8.2 L Hct 25.9 L MCV MCH 27 L MCHC RDW 16.4 H Plt Count 81 L Lymph % (Auto) 1.3 L [place] % (Auto) 9.7 H Lymph # 0.2 L [place] # 1.7 H Seg Neutrophils % 88.9 H Seg Neuts % (Manual) Lymphocytes % (Manual) Monocytes % (Manual) Seg Neutrophils # 15.2 H Seg Neutrophils # Man Lymphocytes # (Manual) Monocytes # (Manual) PT INR APTT Heparin Anti-Xa Level POC ABG pH POC ABG pCO2 POC ABG pO2 Sodium 132 L Potassium Chloride 96.9 L Carbon Dioxide 19 L BUN 120 H Creatinine 4.8 H Glucose 193 H POC Glucose 229 H Hemoglobin A1c Lactic Acid Calcium 8.0 L Total Bilirubin Alkaline Phosphatase Ammonia Troponin T Total Protein Albumin HDL Cholesterol Urine Creatinine Crossmatch 12/05/16 12/05/16 12/05/16 06:00 11:46 17:53 WBC RBC Hgb Hct MCV MCH MCHC RDW Plt Count Lymph % (Auto) [place] % (Auto) Lymph # [place] # Seg Neutrophils % Seg Neuts % (Manual) Lymphocytes % (Manual) Monocytes % (Manual) Seg Neutrophils # Seg Neutrophils # Man Lymphocytes # (Manual) Monocytes # (Manual) PT INR APTT Heparin Anti-Xa Level POC ABG pH POC ABG pCO2 32.5 L POC ABG pO2 124 H Sodium Potassium Chloride Carbon Dioxide BUN Creatinine Glucose POC Glucose 139 H 170 H Hemoglobin A1c Lactic Acid Calcium Total Bilirubin Alkaline Phosphatase Ammonia Troponin T Total Protein Albumin HDL Cholesterol Urine Creatinine Crossmatch 12/05/16 12/06/16 12/06/16 23:24 04:20 05:57 WBC RBC Hgb Hct MCV MCH MCHC RDW Plt Count Lymph % (Auto) [place] % (Auto) Lymph # [place] # Seg Neutrophils % Seg Neuts % (Manual) Lymphocytes % (Manual) Monocytes % (Manual) Seg Neutrophils # Seg Neutrophils # Man Lymphocytes # (Manual) Monocytes # (Manual) PT INR APTT Heparin Anti-Xa Level POC ABG pH POC ABG pCO2 30.3 L POC ABG pO2 122 H Sodium Potassium Chloride Carbon Dioxide BUN Creatinine Glucose POC Glucose 153 H 166 H Hemoglobin A1c Lactic Acid Calcium Total Bilirubin Alkaline Phosphatase Ammonia Troponin T Total Protein Albumin HDL Cholesterol Urine Creatinine Crossmatch 12/06/16 12/06/16 12/06/16 06:00 06:00 11:32 WBC 18.1 H RBC 2.76 L Hgb 7.7 L Hct 23.4 L MCV MCH MCHC RDW 16.6 H Plt Count 62 L Lymph % (Auto) [place] % (Auto) Lymph # [place] # Seg Neutrophils % Seg Neuts % (Manual) 96.0 H Lymphocytes % (Manual) 0 L Monocytes % (Manual) Seg Neutrophils # Seg Neutrophils # Man 17.4 H Lymphocytes # (Manual) 0.0 L Monocytes # (Manual) PT INR APTT Heparin Anti-Xa Level POC ABG pH POC ABG pCO2 POC ABG pO2 Sodium 134 L Potassium Chloride 96.8 L Carbon Dioxide 19 L BUN 117 H Creatinine 4.9 H Glucose 179 H POC Glucose 300 H Hemoglobin A1c Lactic Acid Calcium 8.0 L Total Bilirubin Alkaline Phosphatase Ammonia Troponin T Total Protein Albumin HDL Cholesterol Urine Creatinine Crossmatch 12/06/16 12/06/16 12/06/16 11:33 18:11 23:23 WBC RBC Hgb Hct MCV MCH MCHC RDW Plt Count Lymph % (Auto) [place] % (Auto) Lymph # [place] # Seg Neutrophils % Seg Neuts % (Manual) Lymphocytes % (Manual) Monocytes % (Manual) Seg Neutrophils # Seg Neutrophils # Man Lymphocytes # (Manual) Monocytes # (Manual) PT INR APTT Heparin Anti-Xa Level POC ABG pH POC ABG pCO2 POC ABG pO2 Sodium Potassium Chloride Carbon Dioxide BUN Creatinine Glucose POC Glucose 204 H 246 H 225 H Hemoglobin A1c Lactic Acid Calcium Total Bilirubin Alkaline Phosphatase Ammonia Troponin T Total Protein Albumin HDL Cholesterol Urine Creatinine Crossmatch 12/07/16 12/07/16 12/07/16 04:50 05:19 05:40 WBC 15.6 H RBC 2.71 L Hgb 7.4 L Hct 22.6 L MCV 83 L MCH 27 L MCHC RDW 16.2 H Plt Count 61 L Lymph % (Auto) [place] % (Auto) Lymph # [place] # Seg Neutrophils % Seg Neuts % (Manual) 97.0 H Lymphocytes % (Manual) 0 L Monocytes % (Manual) Seg Neutrophils # Seg Neutrophils # Man 15.1 H Lymphocytes # (Manual) 0.0 L Monocytes # (Manual) PT INR APTT Heparin Anti-Xa Level POC ABG pH POC ABG pCO2 31.3 L POC ABG pO2 Sodium Potassium Chloride Carbon Dioxide BUN Creatinine Glucose POC Glucose 238 H Hemoglobin A1c Lactic Acid Calcium Total Bilirubin Alkaline Phosphatase Ammonia Troponin T Total Protein Albumin HDL Cholesterol Urine Creatinine Crossmatch 12/07/16 12/07/16 12/07/16 05:40 11:43 16:09 WBC RBC Hgb Hct MCV MCH MCHC RDW Plt Count Lymph % (Auto) [place] % (Auto) Lymph # [place] # Seg Neutrophils % Seg Neuts % (Manual) Lymphocytes % (Manual) Monocytes % (Manual) Seg Neutrophils # Seg Neutrophils # Man Lymphocytes # (Manual) Monocytes # (Manual) PT INR APTT Heparin Anti-Xa Level POC ABG pH POC ABG pCO2 POC ABG pO2 Sodium 136 L Potassium Chloride Carbon Dioxide 19 L BUN 122 H Creatinine 5.1 H Glucose 226 H POC Glucose 312 H Hemoglobin A1c Lactic Acid Calcium 7.9 L Total Bilirubin Alkaline Phosphatase Ammonia Troponin T Total Protein Albumin HDL Cholesterol Urine Creatinine Crossmatch See Detail 12/07/16 12/07/16 12/07/16 16:09 17:27 17:31 WBC RBC Hgb 7.0 L Hct 21.0 L MCV MCH MCHC RDW Plt Count Lymph % (Auto) [place] % (Auto) Lymph # [place] # Seg Neutrophils % Seg Neuts % (Manual) Lymphocytes % (Manual) Monocytes % (Manual) Seg Neutrophils # Seg Neutrophils # Man Lymphocytes # (Manual) Monocytes # (Manual) PT INR APTT Heparin Anti-Xa Level POC ABG pH POC ABG pCO2 POC ABG pO2 Sodium Potassium Chloride Carbon Dioxide BUN Creatinine Glucose POC Glucose 312 H 242 H Hemoglobin A1c Lactic Acid Calcium Total Bilirubin Alkaline Phosphatase Ammonia Troponin T Total Protein Albumin HDL Cholesterol Urine Creatinine Crossmatch 12/07/16 12/08/16 12/08/16 23:52 04:00 04:00 WBC 13.2 H RBC 2.50 L Hgb 7.0 L Hct 21.1 L MCV MCH MCHC RDW 16.8 H Plt Count 44 L Lymph % (Auto) 1.5 L [place] % (Auto) 9.1 H Lymph # 0.2 L [place] # 1.2 H Seg Neutrophils % 88.6 H Seg Neuts % (Manual) Lymphocytes % (Manual) Monocytes % (Manual) Seg Neutrophils # 11.7 H Seg Neutrophils # Man Lymphocytes # (Manual) Monocytes # (Manual) PT INR APTT Heparin Anti-Xa Level POC ABG pH POC ABG pCO2 POC ABG pO2 Sodium Potassium Chloride Carbon Dioxide 21 L BUN 127 H Creatinine 5.0 H Glucose 148 H POC Glucose 173 H Hemoglobin A1c Lactic Acid Calcium 8.2 L Total Bilirubin 2.00 H Alkaline Phosphatase 132 H Ammonia Troponin T Total Protein 5.6 L Albumin 2.6 L HDL Cholesterol Urine Creatinine Crossmatch 12/08/16 12/08/16 12/08/16 05:34 09:20 11:50 WBC RBC Hgb 6.9 L Hct 21.4 L MCV MCH MCHC RDW Plt Count Lymph % (Auto) [place] % (Auto) Lymph # [place] # Seg Neutrophils % Seg Neuts % (Manual) Lymphocytes % (Manual) Monocytes % (Manual) Seg Neutrophils # Seg Neutrophils # Man Lymphocytes # (Manual) Monocytes # (Manual) PT INR APTT Heparin Anti-Xa Level POC ABG pH POC ABG pCO2 POC ABG pO2 Sodium Potassium Chloride Carbon Dioxide BUN Creatinine Glucose POC Glucose 134 H Hemoglobin A1c Lactic Acid Calcium Total Bilirubin Alkaline Phosphatase Ammonia 90.0 H Troponin T Total Protein Albumin HDL Cholesterol Urine Creatinine Crossmatch 12/08/16 12/08/16 12/08/16 15:40 17:35 18:20 WBC RBC Hgb 9.2 L Hct 28.1 L D MCV MCH MCHC RDW Plt Count Lymph % (Auto) [place] % (Auto) Lymph # [place] # Seg Neutrophils % Seg Neuts % (Manual) Lymphocytes % (Manual) Monocytes % (Manual) Seg Neutrophils # Seg Neutrophils # Man Lymphocytes # (Manual) Monocytes # (Manual) PT INR APTT Heparin Anti-Xa Level POC ABG pH POC ABG pCO2 POC ABG pO2 Sodium Potassium Chloride Carbon Dioxide BUN Creatinine Glucose POC Glucose 111 H 146 H Hemoglobin A1c Lactic Acid Calcium Total Bilirubin Alkaline Phosphatase Ammonia Troponin T Total Protein Albumin HDL Cholesterol Urine Creatinine Crossmatch 12/09/16 12/09/16 12/09/16 00:10 04:13 05:50 WBC 17.6 H RBC 3.48 L Hgb 9.5 L Hct 29.2 L MCV MCH 27 L MCHC RDW 15.8 H Plt Count 75 L Lymph % (Auto) [place] % (Auto) Lymph # [place] # Seg Neutrophils % Seg Neuts % (Manual) 94.0 H Lymphocytes % (Manual) 2.0 L Monocytes % (Manual) Seg Neutrophils # Seg Neutrophils # Man 16.5 H Lymphocytes # (Manual) 0.4 L Monocytes # (Manual) PT INR APTT Heparin Anti-Xa Level POC ABG pH POC ABG pCO2 POC ABG pO2 107 H Sodium Potassium Chloride Carbon Dioxide BUN Creatinine Glucose POC Glucose 64 L Hemoglobin A1c Lactic Acid Calcium Total Bilirubin Alkaline Phosphatase Ammonia Troponin T Total Protein Albumin HDL Cholesterol Urine Creatinine Crossmatch 12/09/16 12/09/16 12/09/16 05:50 12:16 12:56 WBC RBC Hgb Hct MCV MCH MCHC RDW Plt Count Lymph % (Auto) [place] % (Auto) Lymph # [place] # Seg Neutrophils % Seg Neuts % (Manual) Lymphocytes % (Manual) Monocytes % (Manual) Seg Neutrophils # Seg Neutrophils # Man Lymphocytes # (Manual) Monocytes # (Manual) PT INR APTT Heparin Anti-Xa Level POC ABG pH POC ABG pCO2 34.1 L POC ABG pO2 79 L Sodium Potassium Chloride Carbon Dioxide BUN 92 H Creatinine 3.9 H Glucose 70 L POC Glucose 113 H Hemoglobin A1c Lactic Acid Calcium Total Bilirubin Alkaline Phosphatase Ammonia Troponin T Total Protein Albumin HDL Cholesterol Urine Creatinine Crossmatch 12/09/16 12/09/16 12/10/16 17:52 23:33 05:07 WBC RBC Hgb Hct MCV MCH MCHC RDW Plt Count Lymph % (Auto) [place] % (Auto) Lymph # [place] # Seg Neutrophils % Seg Neuts % (Manual) Lymphocytes % (Manual) Monocytes % (Manual) Seg Neutrophils # Seg Neutrophils # Man Lymphocytes # (Manual) Monocytes # (Manual) PT INR APTT Heparin Anti-Xa Level POC ABG pH POC ABG pCO2 POC ABG pO2 Sodium Potassium Chloride Carbon Dioxide BUN Creatinine Glucose POC Glucose 146 H 150 H 142 H Hemoglobin A1c Lactic Acid Calcium Total Bilirubin Alkaline Phosphatase Ammonia Troponin T Total Protein Albumin HDL Cholesterol Urine Creatinine Crossmatch 12/10/16 12/10/16 12/10/16 06:15 08:30 09:45 WBC RBC Hgb 8.7 L Hct 27.0 L MCV MCH MCHC RDW Plt Count 71 L Lymph % (Auto) [place] % (Auto) Lymph # [place] # Seg Neutrophils % Seg Neuts % (Manual) Lymphocytes % (Manual) Monocytes % (Manual) Seg Neutrophils # Seg Neutrophils # Man Lymphocytes # (Manual) Monocytes # (Manual) PT INR APTT Heparin Anti-Xa Level POC ABG pH 7.508 H 7.558 H POC ABG pCO2 32.8 L 29.1 L POC ABG pO2 72 L Sodium Potassium Chloride Carbon Dioxide BUN Creatinine Glucose POC Glucose Hemoglobin A1c Lactic Acid Calcium Total Bilirubin Alkaline Phosphatase Ammonia Troponin T Total Protein Albumin HDL Cholesterol Urine Creatinine Crossmatch 12/10/16 12/10/16 12/10/16 12:06 18:25 23:44 WBC RBC Hgb Hct MCV MCH MCHC RDW Plt Count Lymph % (Auto) [place] % (Auto) Lymph # [place] # Seg Neutrophils % Seg Neuts % (Manual) Lymphocytes % (Manual) Monocytes % (Manual) Seg Neutrophils # Seg Neutrophils # Man Lymphocytes # (Manual) Monocytes # (Manual) PT INR APTT Heparin Anti-Xa Level POC ABG pH POC ABG pCO2 POC ABG pO2 Sodium Potassium Chloride Carbon Dioxide BUN Creatinine Glucose POC Glucose 264 H 126 H 195 H Hemoglobin A1c Lactic Acid Calcium Total Bilirubin Alkaline Phosphatase Ammonia Troponin T Total Protein Albumin HDL Cholesterol Urine Creatinine Crossmatch 12/11/16 12/11/16 05:36 09:05 WBC RBC Hgb Hct MCV MCH MCHC RDW Plt Count Lymph % (Auto) [place] % (Auto) Lymph # [place] # Seg Neutrophils % Seg Neuts % (Manual) Lymphocytes % (Manual) Monocytes % (Manual) Seg Neutrophils # Seg Neutrophils # Man Lymphocytes # (Manual) Monocytes # (Manual) PT INR APTT Heparin Anti-Xa Level POC ABG pH 7.517 H POC ABG pCO2 32.2 L POC ABG pO2 Sodium Potassium Chloride Carbon Dioxide BUN Creatinine Glucose POC Glucose 196 H Hemoglobin A1c Lactic Acid Calcium Total Bilirubin Alkaline Phosphatase Ammonia Troponin T Total Protein Albumin HDL Cholesterol Urine Creatinine Crossmatch
--- NOTE | 2016-12-11 13:31 | Progress Note ---
Assessment and Plan Assessment and plan: S/P in house cardiac arrest - Patient extubated today - Patient is drowsy but able to take care of his airways Bilateral DM leg ulcer - treated with IV rocephin for 10days - On topical antibacterials DM - Sliding scale insulin Acute on chronic kidney disease - patient is on dialysis - Nephrology following Hypertension - Doesn't need antihypertensive medication CAD Chronic systolic heart failure - Low-dose carvedilol - Cardiology following Thrombocytopenia - We will monitor GI bleed - Secondary to gastritis/tendinitis -Continue PPI -H&H stable Diarrhea - C. difficile result pending DVT prophylaxis - SCD Disposition Continue ICU care We'll transfer him to the floor tomorrow The high probability of a clinically significant, sudden or life threatening deterioration of the [neurology, CV, repiratory] system(s) required my full and direct attention, intervention and personal management. The aggregate critical care time was [31] minutes. This time is in addition to time spent performing reported procedures but includes the following: [x] Data Review and interpretation [x] Patient assessment and monitoring of vital signs [x] Documentation [x] Medication orders and management History Interval history: Patient was seen and evaluated this morning, patient is extubated, on oxygen. Hospitalist Physical - Physical exam Narrative exam: Patient extubated this morning. The patient appeared well nourished and normally developed. Vital signs as documented. Head exam is unremarkable. No scleral icterus . Neck is without jugular venous distension, thyromegaly, or carotid bruits. Lungs are clear to auscultation. Cardiac exam reveals regular rate and Rhythm. First and second heart sounds normal. No murmurs, rubs or gallops. Abdominal exam reveals normal bowel sounds, no masses, no organomegaly and no aortic enlargement. Extremities significant for bilateral leg ulcer around the calf area, clean dressing around it. 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 - Constitutional Vitals: Temp Pulse Resp BP Pulse Ox 97.5 F L 95 H 23 115/67 100 12/11/16 12:00 12/11/16 13:01 12/11/16 13:01 12/11/16 13:01 12/11/16 13:12 General appearance: Present: no acute distress, other (orally intubated on ventilatory support and sedated) Results - Labs CBC & Chem 7: 12/10/16 08:30 06/30/17 05:50 Labs: Laboratory Last Values WBC 17.6 K/mm3 (4.5-11.0) H 12/09/16 05:50 RBC 3.48 M/mm3 (3.65-5.03) L 12/09/16 05:50 Hgb 8.7 gm/dl (11.8-15.2) L 12/10/16 08:30 Hct 27.0 % (35.5-45.6) L 12/10/16 08:30 MCV 84 fl (84-94) 12/09/16 05:50 MCH 27 pg (28-32) L 12/09/16 05:50 MCHC 33 % (32-34) 12/09/16 05:50 RDW 15.8 % (13.2-15.2) H 12/09/16 05:50 Plt Count 71 K/mm3 (140-440) L 12/10/16 08:30 Lymph % (Auto) 1.5 % (13.4-35.0) L 12/08/16 04:00 [place] % (Auto) 9.1 % (0.0-7.3) H 12/08/16 04:00 Eos % (Auto) 0.7 % (0.0-4.3) 12/08/16 04:00 Baso % (Auto) 0.1 % (0.0-1.8) 12/08/16 04:00 Lymph # 0.2 K/mm3 (1.2-5.4) L 12/08/16 04:00 [place] # 1.2 K/mm3 (0.0-0.8) H 12/08/16 04:00 Eos # 0.1 K/mm3 (0.0-0.4) 12/08/16 04:00 Baso # 0.0 K/mm3 (0.0-0.1) 12/08/16 04:00 Add Manual Diff Complete 12/09/16 05:50 Total Counted 100 12/09/16 05:50 Seg Neutrophils % Wallpaper Consultant 12/09/16 05:50 Seg Neuts % (Manual) 94.0 % (40.0-70.0) H 12/09/16 05:50 Band Neutrophils % 0 % 12/09/16 05:50 Lymphocytes % (Manual) 2.0 % (13.4-35.0) L 12/09/16 05:50 Reactive Lymphs % (Man) 0 % 12/09/16 05:50 Monocytes % (Manual) 3.0 % (0.0-7.3) 12/09/16 05:50 Eosinophils % (Manual) 1.0 % (0.0-4.3) 12/09/16 05:50 Basophils % (Manual) 0 % (0.0-1.8) 12/09/16 05:50 Metamyelocytes % 0 % 12/09/16 05:50 Myelocytes % 0 % 12/09/16 05:50 Promyelocytes % 0 % 12/09/16 05:50 Blast Cells % 0 % 12/09/16 05:50 Nucleated RBC % Not Reportable 12/09/16 05:50 Seg Neutrophils # 11.7 K/mm3 (1.8-7.7) H 12/08/16 04:00 Seg Neutrophils # Man 16.5 K/mm3 (1.8-7.7) H 12/09/16 05:50 Band Neutrophils # 0.0 K/mm3 12/09/16 05:50 Lymphocytes # (Manual) 0.4 K/mm3 (1.2-5.4) L 12/09/16 05:50 Abs React Lymphs (Man) 0.0 K/mm3 12/09/16 05:50 Monocytes # (Manual) 0.5 K/mm3 (0.0-0.8) 12/09/16 05:50 Eosinophils # (Manual) 0.2 K/mm3 (0.0-0.4) 12/09/16 05:50 Basophils # (Manual) 0.0 K/mm3 (0.0-0.1) 12/09/16 05:50 Metamyelocytes # 0.0 K/mm3 12/09/16 05:50 Myelocytes # 0.0 K/mm3 12/09/16 05:50 Promyelocytes # 0.0 K/mm3 12/09/16 05:50 Blast Cells # 0.0 K/mm3 12/09/16 05:50 WBC Morphology Not Reportable 12/09/16 05:50 Hypersegmented Neuts Not Reportable 12/09/16 05:50 Hyposegmented Neuts Not Reportable 12/09/16 05:50 Hypogranular Neuts Not Reportable 12/09/16 05:50 Smudge Cells Not Reportable 12/09/16 05:50 Toxic Granulation Not Reportable 12/09/16 05:50 Toxic Vacuolation Not Reportable 12/09/16 05:50 Dohle Bodies Not Reportable 12/09/16 05:50 Pelger-Huet Anomaly Not Reportable 12/09/16 05:50 Demetra Rods Not Reportable 12/09/16 05:50 Platelet Estimate Consistent w auto 12/09/16 05:50 Clumped Platelets Not Reportable 12/09/16 05:50 Plt Clumps, EDTA Not Reportable 12/09/16 05:50 Large Platelets Not Reportable 12/09/16 05:50 Giant Platelets Not Reportable 12/09/16 05:50 Platelet Satelliting Not Reportable 12/09/16 05:50 Plt Morphology Comment Not Reportable 12/09/16 05:50 RBC Morphology Not Reportable 12/09/16 05:50 Dimorphic RBCs Not Reportable 12/09/16 05:50 Polychromasia Not Reportable 12/09/16 05:50 Hypochromasia Few 12/09/16 05:50 Poikilocytosis Not Reportable 12/09/16 05:50 Anisocytosis 1+ 12/09/16 05:50 Microcytosis Not Reportable 12/09/16 05:50 Macrocytosis Not Reportable 12/09/16 05:50 Spherocytes Not Reportable 12/09/16 05:50 Pappenheimer Bodies Not Reportable 12/09/16 05:50 Sickle Cells Not Reportable 12/09/16 05:50 Target Cells Few 12/09/16 05:50 Tear Drop Cells Not Reportable 12/09/16 05:50 Ovalocytes Not Reportable 12/09/16 05:50 Helmet Cells Not Reportable 12/09/16 05:50 [place] Bodies Not Reportable 12/09/16 05:50 [place] Rings Not Reportable 12/09/16 05:50 Genia Cells Not Reportable 12/09/16 05:50 Bite Cells Not Reportable 12/09/16 05:50 Crenated Cell Not Reportable 12/09/16 05:50 Elliptocytes Not Reportable 12/09/16 05:50 Acanthocytes (Spur) Not Reportable 12/09/16 05:50 Rouleaux Not Reportable 12/09/16 05:50 Hemoglobin C Crystals Not Reportable 12/09/16 05:50 Schistocytes Few 12/09/16 05:50 Malaria parasites Not Reportable 12/09/16 05:50 Romeo Bodies Not Reportable 12/09/16 05:50 Hem Pathologist Commnt No 12/09/16 05:50 PT 16.6 Sec. (12.2-14.9) H 12/02/16 19:20 INR 1.27 (0.87-1.13) H 12/02/16 19:20 APTT 45.4 Sec. (24.2-36.6) H 12/02/16 19:20 Heparin Anti-Xa Level < 0.10 U.I./ml (0.3-0.7) L 12/03/16 01:15 POC ABG pH 7.517 (7.35-7.45) H 12/11/16 09:05 POC ABG pCO2 32.2 (35-45) L 12/11/16 09:05 POC ABG pO2 97 (80-105) 12/11/16 09:05 POC ABG HCO3 26.1 12/11/16 09:05 POC ABG Total CO2 27 12/11/16 09:05 POC ABG O2 Sat 98 12/11/16 09:05 POC ABG Base Excess 3 12/11/16 09:05 FiO2 30 % 12/11/16 09:05 Sodium 139 mmol/L (137-145) 12/09/16 05:50 Potassium 4.5 mmol/L (3.6-5.0) 12/09/16 05:50 Chloride 101.9 mmol/L (98-107) 12/09/16 05:50 Carbon Dioxide 22 mmol/L (22-30) 12/09/16 05:50 Anion Gap 20 mmol/L 12/09/16 05:50 BUN 92 mg/dL (9-20) H 12/09/16 05:50 Creatinine 3.9 mg/dL (0.8-1.5) H 12/09/16 05:50 Estimated GFR 19 ml/min 12/09/16 05:50 BUN/Creatinine Ratio 23.58 % 12/09/16 05:50 Glucose 70 mg/dL (75-100) L 12/09/16 05:50 POC Glucose 187 (70-105) H 12/11/16 11:49 Hemoglobin A1c 10.6 % (4-6) H 11/28/16 16:02 Lactic Acid 2.60 mmol/L (0.7-2.0) H* 12/04/16 13:22 Calcium 8.5 mg/dL (8.4-10.2) 12/09/16 05:50 Magnesium 2.10 mg/dL (1.7-2.3) 12/08/16 04:00 Total Bilirubin 2.00 mg/dL (0.1-1.2) H 12/08/16 04:00 AST 35 units/L (5-40) 12/08/16 04:00 ALT 37 units/L (7-56) 12/08/16 04:00 Alkaline Phosphatase 132 units/L (35-129) H 12/08/16 04:00 Ammonia 90.0 umol/L (25-60) H 12/08/16 11:50 Total Creatine Kinase 59 units/L (55-170) 12/02/16 19:23 CK-MB (CK-2) 1.9 ng/mL (0.0-4.0) 12/02/16 19:23 CK-MB (CK-2) Rel Index 3.2 (0-4) 12/02/16 19:23 Troponin T 0.098 ng/mL (0.00-0.029) H 12/03/16 08:01 Total Protein 5.6 g/dL (6.3-8.2) L 12/08/16 04:00 Albumin 2.6 g/dL (3.9-5) L 12/08/16 04:00 Albumin/Globulin Ratio 0.9 % 12/08/16 04:00 Triglycerides 72 mg/dL (2-149) 11/30/16 20:37 Cholesterol 132 mg/dL (50-199) 11/30/16 20:37 LDL Cholesterol Direct 82 mg/dL (50-130) 11/30/16 20:37 HDL Cholesterol 36 mg/dL (40-59) L 11/30/16 20:37 Cholesterol/HDL Ratio 3.66 % 11/30/16 20:37 TSH 0.764 mlU/mL (0.270-4.200) 12/08/16 11:50 Urine Color Yellow (Yellow) 11/30/16 10:00 Urine Turbidity Clear (Clear) 11/30/16 10:00 Urine pH 6.0 (5.0-7.0) 11/30/16 10:00 Ur Specific Dustin 1.018 (1.003-1.030) 11/30/16 10:00 Urine Protein 30 mg/dl mg/dL (Negative) 11/30/16 10:00 Urine Glucose (UA) Neg mg/dL (Negative) 11/30/16 10:00 Urine Ketones Neg mg/dL (Negative) 11/30/16 10:00 Urine Blood Neg (Negative) 11/30/16 10:00 Urine Nitrite Neg (Negative) 11/30/16 10:00 Urine Bilirubin Neg (Negative) 11/30/16 10:00 Urine Urobilinogen < 2.0 mg/dL (<2.0) 11/30/16 10:00 Ur Leukocyte Esterase Tr (Negative) 11/30/16 10:00 Urine WBC (Auto) 2.0 /HPF (0.0-6.0) 11/30/16 10:00 Urine RBC (Auto) < 1.0 /HPF (0.0-6.0) 11/30/16 10:00 U Epithel Cells (Auto) < 1.0 /HPF (0-13.0) 11/30/16 10:00 Urine Eosinophils None seen (None Seen) 11/30/16 10:00 Urine Creatinine 78.6 mg/dL (0.1-20.0) H 11/30/16 10:00 Urine Sodium 10 mEq/L 11/30/16 10:00 Vancomycin Trough 19.0 ug/mL (5.0-20.0) 12/03/16 06:04 Random Vancomycin 24.7 ug/mL (0-40.0) 12/05/16 05:00 Hepatitis A IgM Ab Non-reactive (NonReactive) 12/08/16 12:20 Hep Bs Antigen Non-reactive (Negative) 12/08/16 12:20 Hep B Core IgM Ab Non-reactive (NonReactive) 12/08/16 12:20 Hepatitis C Antibody Non-reactive (NonReactive) 06/29/17 12:20 Blood Type B POSITIVE 12/07/16 16:09 Antibody Screen TNR 12/07/16 16:09 RHONDA Antibody Screen Negative 12/07/16 16:09 Crossmatch See Detail 12/07/16 16:09
[2016-12-11] MEDS: XOPENEX IH SCH ×2 (13:42→20:33)
[2016-12-11] MEDS ORDERED: NACL 0.9% 100 ML IV PRN (14:20)
--- NOTE | 2016-12-11 14:21 | Progress Note ---
Assessment and Plan Assessment: * Acute kidney injury secondary to ATN - s/p HD initiation on 12/08 * Acute hypoxic respiratory failure on mechanical ventilation * GI bleed * Anemia secondary to GI bleed * EGD w/o active bleeding Plan: * Patient is s/p HD yesterday. * No acute need for hemodialysis today * Hemodialysis tomorrow - continue MWF schedule * Transfuse blood products per primary team * Avoid potential nephrotoxins * Dose medications for renal function * Monitor for evidence of renal recovery * AM labs are ordered Subjective Date of service: 12/11/16 Principal diagnosis: bilateral leg wounds; TREMAINE Interval history: Patient extubated. Objective - Vital Signs Vital signs: Vital Signs - 12hr 12/11/16 12/11/16 12/11/16 03:01 04:00 04:01 Temperature 97.8 F Pulse Rate 90 84 Pulse Rate [ 99 H From Monitor] Pulse Rate [ Posterior Bilateral Throughout] Respiratory 21 21 13 Rate Respiratory Rate [Posterior Bilateral Throughout] Blood Pressure 93/54 95/67 O2 Sat by Pulse 100 100 99 Oximetry 12/11/16 12/11/16 12/11/16 05:01 06:00 07:00 Temperature Pulse Rate 88 91 H 85 Pulse Rate [ From Monitor] Pulse Rate [ Posterior Bilateral Throughout] Respiratory 16 19 15 Rate Respiratory Rate [Posterior Bilateral Throughout] Blood Pressure 93/62 96/53 101/57 O2 Sat by Pulse 100 100 100 Oximetry 12/11/16 12/11/16 12/11/16 07:21 07:25 07:27 Temperature Pulse Rate 86 102 H Pulse Rate [ From Monitor] Pulse Rate [ 94 H Posterior Bilateral Throughout] Respiratory 24 Rate Respiratory 24 Rate [Posterior Bilateral Throughout] Blood Pressure 101/57 101/57 O2 Sat by Pulse 100 100 Oximetry 12/11/16 12/11/16 12/11/16 07:46 07:52 08:00 Temperature 98.3 F Pulse Rate Pulse Rate [ From Monitor] Pulse Rate [ 96 H Posterior Bilateral Throughout] Respiratory Rate Respiratory 22 Rate [Posterior Bilateral Throughout] Blood Pressure O2 Sat by Pulse 100 Oximetry 12/11/16 12/11/16 12/11/16 08:01 09:01 09:05 Temperature Pulse Rate 90 89 94 H Pulse Rate [ From Monitor] Pulse Rate [ Posterior Bilateral Throughout] Respiratory 19 19 22 Rate Respiratory Rate [Posterior Bilateral Throughout] Blood Pressure 93/60 103/56 93/60 O2 Sat by Pulse 100 100 99 Oximetry 12/11/16 12/11/16 12/11/16 09:31 10:01 11:01 Temperature Pulse Rate 89 84 Pulse Rate [ From Monitor] Pulse Rate [ Posterior Bilateral Throughout] Respiratory 24 25 H Rate Respiratory Rate [Posterior Bilateral Throughout] Blood Pressure 99/63 99/63 O2 Sat by Pulse 100 100 100 Oximetry 12/11/16 12/11/16 12/11/16 12:00 12:01 13:01 Temperature 97.5 F L Pulse Rate 92 H 95 H Pulse Rate [ From Monitor] Pulse Rate [ Posterior Bilateral Throughout] Respiratory 26 H 23 Rate Respiratory Rate [Posterior Bilateral Throughout] Blood Pressure 99/66 115/67 O2 Sat by Pulse 100 100 Oximetry 12/11/16 12/11/16 12/11/16 13:12 13:42 13:50 Temperature Pulse Rate Pulse Rate [ From Monitor] Pulse Rate [ 92 H 102 H Posterior Bilateral Throughout] Respiratory Rate Respiratory 24 24 Rate [Posterior Bilateral Throughout] Blood Pressure O2 Sat by Pulse 100 Oximetry - General Appearance General appearance: well-developed EENT: ATNC Respiratory: Present: Other (bilateral rhonchi) Cardiology: regular, S1S2 Gastrointestinal: normal, no tenderness, no distended Integumentary: no rash Musculoskeletal: other (1+ edema, thigh) Psychiatric: cooperative - Lab 12/10/16 08:30 12/09/16 05:50 Most recent lab results Calcium 8.5 mg/dL (8.4-10.2) 12/09/16 05:50 Magnesium 2.10 mg/dL (1.7-2.3) 12/08/16 04:00 Urine Creatinine 78.6 mg/dL (0.1-20.0) H 11/30/16 10:00 Urine Sodium 10 mEq/L 11/30/16 10:00
[2016-12-12] MEDS: NOVOLOG SUB-Q SCH ×4 (02:02→18:21)
[2016-12-12 07:07] LABS: Hematocrit 28.2 % (35.5-45.6); Mean Corpuscular HGB Conc 32 % (32-34); Mean Corpuscular Hemoglobin 27 pg (28-32); Mean Corpuscular Volume 85 fl (84-94); Red Cell Distribution Width 16.8 % (13.2-15.2); White Blood Count 11.3 K/mm3 (4.5-11.0)
[2016-12-12 07:08] LABS: Platelet Count 88 K/mm3 (140-440)
[2016-12-12 07:24] LABS: BUN/Creatinine Ratio 20.58; Chloride 97.1 mmol/L (98-107); Potassium 4.5 mmol/L (3.6-5.0)
[2016-12-12] MEDS: XOPENEX IH SCH ×3 (08:23→19:34)
--- NOTE | 2016-12-12 08:35 | Progress Note ---
Assessment and Plan Assessment: * Acute kidney injury secondary to ATN - s/p HD initiation on 12/08 * Acute hypoxic respiratory failure on mechanical ventilation; extubated 12/11 * GI bleed * Anemia secondary to GI bleed * EGD w/o active bleeding Plan: * Hemodialysis today - continue MWF schedule * UF as tolerated * Transfuse blood products per primary team * Avoid potential nephrotoxins * Dose medications for renal function * Monitor for evidence of renal recovery * AM labs are ordered Subjective Date of service: 12/12/16 Principal diagnosis: bilateral leg wounds; TREMAINE Interval history: Patient remains extubated; on 2L NC oxygen Objective - Vital Signs Vital signs: Vital Signs - 12hr 12/11/16 12/11/16 12/11/16 20:40 20:44 21:01 Temperature Pulse Rate 89 Pulse Rate [ 96 H Anterior Bilateral Throughout] Pulse Rate [ Posterior Bilateral Throughout] Respiratory 26 H Rate Respiratory 28 H Rate [Anterior Bilateral Throughout] Respiratory Rate [Posterior Bilateral Throughout] Blood Pressure 108/58 O2 Sat by Pulse 99 100 Oximetry 12/11/16 12/11/16 12/11/16 21:53 22:01 22:19 Temperature Pulse Rate 89 91 H 102 H Pulse Rate [ Anterior Bilateral Throughout] Pulse Rate [ Posterior Bilateral Throughout] Respiratory 23 20 Rate Respiratory Rate [Anterior Bilateral Throughout] Respiratory Rate [Posterior Bilateral Throughout] Blood Pressure 106/58 99/60 99/60 O2 Sat by Pulse 99 98 Oximetry 12/11/16 12/12/16 12/12/16 23:01 00:00 00:01 Temperature 97.6 F Pulse Rate 91 H 82 Pulse Rate [ Anterior Bilateral Throughout] Pulse Rate [ Posterior Bilateral Throughout] Respiratory 21 26 H 25 H Rate Respiratory Rate [Anterior Bilateral Throughout] Respiratory Rate [Posterior Bilateral Throughout] Blood Pressure 95/55 105/59 O2 Sat by Pulse 97 97 97 Oximetry 12/12/16 12/12/16 12/12/16 01:01 02:01 03:01 Temperature Pulse Rate 87 105 H 107 H Pulse Rate [ Anterior Bilateral Throughout] Pulse Rate [ Posterior Bilateral Throughout] Respiratory 25 H 30 H 31 H Rate Respiratory Rate [Anterior Bilateral Throughout] Respiratory Rate [Posterior Bilateral Throughout] Blood Pressure 114/67 138/63 123/53 O2 Sat by Pulse 98 98 99 Oximetry 12/12/16 12/12/16 12/12/16 04:00 04:01 05:01 Temperature 97.9 F Pulse Rate 110 H 91 H Pulse Rate [ Anterior Bilateral Throughout] Pulse Rate [ Posterior Bilateral Throughout] Respiratory 29 H 31 H 29 H Rate Respiratory Rate [Anterior Bilateral Throughout] Respiratory Rate [Posterior Bilateral Throughout] Blood Pressure 120/67 117/51 O2 Sat by Pulse 99 97 98 Oximetry 12/12/16 12/12/16 12/12/16 06:00 07:19 08:23 Temperature 98.5 F Pulse Rate 95 H Pulse Rate [ Anterior Bilateral Throughout] Pulse Rate [ 108 H Posterior Bilateral Throughout] Respiratory 27 H Rate Respiratory Rate [Anterior Bilateral Throughout] Respiratory 18 Rate [Posterior Bilateral Throughout] Blood Pressure 116/57 O2 Sat by Pulse 96 100 Oximetry - General Appearance General appearance: well-developed EENT: ATNC Respiratory: Present: Decreased Breath Sounds Cardiology: regular, S1S2 Gastrointestinal: normal, no tenderness, no distended, other (+flank wall edema) Neurologic: other (lethargic) Musculoskeletal: other (pitting edema thigh) Psychiatric: cooperative - Lab 12/12/16 06:30 12/12/16 06:30 Most recent lab results Calcium 8.0 mg/dL (8.4-10.2) L 12/12/16 06:30 Magnesium 2.10 mg/dL (1.7-2.3) 12/08/16 04:00 Urine Creatinine 78.6 mg/dL (0.1-20.0) H 11/30/16 10:00 Urine Sodium 10 mEq/L 11/30/16 10:00
--- NOTE | 2016-12-12 08:44 | Progress Note ---
Assessment and Plan Acute respiratory failure-->extubated 12/11 Status post cardiac arrest Acute on chronic systolic heart failure dialysis per nephrology continue coreg 3.125mg daily Ccrdiomyopathy s/p AICD Coronary artery disease disease Peripheral vascular disease with left leg ulcer Hypertension Hyperlipidemia Diabetes End-stage renal disease on hemodialysis Anemia secondary to GI bleed The patient has been seen in conjunction with Dr. Hale who agrees with the assessment and plan of care. Subjective Date of service: 12/12/16 Principal diagnosis: bilateral leg wounds; TREMAINE Interval history: The patient is resting in bed. Lethargic but arousable. Extubated yesterday. Atrial fibrillation with occasional paced beats on the monitor. Objective Last Vital Signs Temp 98.5 F 12/12/16 07:19 Pulse 104 H 12/12/16 08:40 Resp 20 12/12/16 08:40 BP 116/57 12/12/16 06:00 Pulse Ox 100 12/12/16 08:23 - Physical Examination General: No Apparent Distress (lethargic but arousable) HEENT: Positive: Normocephaly, Mucus Membranes Moist Neck: Positive: neck supple, trachea midline Cardiac: Positive: irregularly irregular, S1/S2 Lungs: Positive: Rhonchi Neuro: Positive: Other (lethargic but arousable) Abdomen: Positive: Soft, Active Bowel Sounds Skin: Positive: Clear, Other (Multiple ulcers in the legs - Dressing in situ.). Negative: Rash Musculoskeletal: other (Dressing in situ (multiple ulcers in the legs).) Extremities: Absent: lower extr. pulses, edema (bilateral LE dressings intact) - Labs and Meds CBC 12/12/16 Range/Units 06:30 WBC 11.3 H (4.5-11.0) K/mm3 RBC 3.30 L (3.65-5.03) M/mm3 Hgb 9.0 L (11.8-15.2) gm/dl Hct 28.2 L (35.5-45.6) % Plt Count 88 L (140-440) K/mm3 Comprehensive Metabolic Panel 12/12/16 Range/Units 06:30 Sodium 136 L (137-145) mmol/L Potassium 4.5 (3.6-5.0) mmol/L Chloride 97.1 L (98-107) mmol/L Carbon Dioxide 25 (22-30) mmol/L BUN 70 H (9-20) mg/dL Creatinine 3.4 H (0.8-1.5) mg/dL Glucose 256 H (75-100) mg/dL Calcium 8.0 L (8.4-10.2) mg/dL - Imaging and Cardiology EKG: report reviewed, image reviewed (12/03/2016 severe LV dysfunction by ventricle dysfunction EF 15-20% mild to moderate mitral regurgitation mild to moderate tricuspid regurgitation with pulmonary hypertension) Echo: report reviewed, image reviewed - Telemetry EKG Rhythm: Atrial Fibrillation
[2016-12-12 09:49] LABS: Basophils % (Manual) 0 % (0.0-1.8); Blastocytes % (Manual) 0 %; Eosinophils % (Manual) 0 % (0.0-4.3)
[2016-12-12 09:52] LABS: Anisocytosis 1+; Diff Status Complete; Hypochromasia Few; Platelet Estimate Consistent w Auto; Target Cells Few
[2016-12-12] MEDS: DAKIN'S HALF STRENGTH TP SCH ×2 (10:24→21:21)
[2016-12-12] MEDS: PROTONIX FEEDTUBE SCH ×2 (10:24→21:20)
[2016-12-12] MEDS: TRIPLE ANTIBIOTIC TP SCH (10:24)
[2016-12-12] MEDS: COREG PO SCH ×3 (10:25→21:20)
--- NOTE | 2016-12-12 10:44 | Progress Note ---
Assessment and Plan 71 y/o male with cardiac arrest, asystole with unknown down time and ROSC 1. Stopped PRN sedatives. 2. Will need PRN NT suctioning, maintain elevated head of bed, aspiration precautions. 3. HD today, continue MWF per last renal note. 4. Will need speech eval and assessment 5. Foot pumps for DVT prophylaxis, given leg ulcers 6. Contiue tube feeds until assessed by speech. 7. Overall prognosis remains poor, no family at bedside to discuss. Extubated but may have some element of anoxia, which puts him at risk for aspiration. Will give another day in the ICU given current mental status. Subjective Date of service: 12/12/16 Principal diagnosis: bilateral leg wounds; TREMAINE Interval history: Successful extubation on yesterday. Stable on nasal cannula. Mental status is stable, but not appropriate for feeding via oral yet. Has some secretions that are audible in the back of throat. Responds well to NT suctioning based on RT. Objective Vital Signs - 12hr 12/11/16 12/12/16 12/12/16 23:01 00:00 00:01 Temperature 97.6 F Pulse Rate 91 H 82 Pulse Rate [ Posterior Bilateral Throughout] Respiratory 21 26 H 25 H Rate Respiratory Rate [Posterior Bilateral Throughout] Blood Pressure 95/55 105/59 O2 Sat by Pulse 97 97 97 Oximetry 12/12/16 12/12/16 12/12/16 01:01 02:01 03:01 Temperature Pulse Rate 87 105 H 107 H Pulse Rate [ Posterior Bilateral Throughout] Respiratory 25 H 30 H 31 H Rate Respiratory Rate [Posterior Bilateral Throughout] Blood Pressure 114/67 138/63 123/53 O2 Sat by Pulse 98 98 99 Oximetry 12/12/16 12/12/16 12/12/16 04:00 04:01 05:01 Temperature 97.9 F Pulse Rate 110 H 91 H Pulse Rate [ Posterior Bilateral Throughout] Respiratory 29 H 31 H 29 H Rate Respiratory Rate [Posterior Bilateral Throughout] Blood Pressure 120/67 117/51 O2 Sat by Pulse 99 97 98 Oximetry 12/12/16 12/12/16 12/12/16 06:00 07:00 07:19 Temperature 98.5 F Pulse Rate 95 H 99 H Pulse Rate [ Posterior Bilateral Throughout] Respiratory 27 H 31 H Rate Respiratory Rate [Posterior Bilateral Throughout] Blood Pressure 116/57 119/63 O2 Sat by Pulse 96 98 Oximetry 12/12/16 12/12/16 12/12/16 08:01 08:23 08:40 Temperature Pulse Rate 95 H Pulse Rate [ 108 H 104 H Posterior Bilateral Throughout] Respiratory 24 Rate Respiratory 18 20 Rate [Posterior Bilateral Throughout] Blood Pressure 113/53 O2 Sat by Pulse 98 100 Oximetry 12/12/16 12/12/16 09:01 10:25 Temperature Pulse Rate 94 H 87 Pulse Rate [ Posterior Bilateral Throughout] Respiratory 17 Rate Respiratory Rate [Posterior Bilateral Throughout] Blood Pressure 128/53 108/51 O2 Sat by Pulse 100 Oximetry Constitutional: alert, other (does not follow commands) Eyes: other (pupils reactive and equal) ENT: oropharynx dry Neck: supple, no JVD Ascultation: Bilateral: rales (anteriorly) Percussion: Bilateral: not dull Tactile fremitus: Bilateral: other (unable to assess as patient will not follow commands) Cardiovascular: regular rate and rhythm Gastrointestinal: normoactive bowel sounds, soft, non-distended Integumentary: normal Extremities: cool, edema (right arm edema), other (leg ulcers covered) Neurologic: pupils equal and round, other (moving spontaneously,RASS 0-1) CBC and BMP: 12/12/16 06:30 12/12/16 06:30 ABG, PT/INR, D-dimer: ABG POC ABG pH 7.517 (7.35-7.45) H 12/11/16 09:05 POC ABG pCO2 32.2 (35-45) L 12/11/16 09:05 POC ABG pO2 97 (80-105) 12/11/16 09:05 POC ABG HCO3 26.1 12/11/16 09:05 POC ABG Total CO2 27 12/11/16 09:05 POC ABG O2 Sat 98 12/11/16 09:05 PT/INR, D-dimer PT 16.6 Sec. (12.2-14.9) H 12/02/16 19:20 INR 1.27 (0.87-1.13) H 12/02/16 19:20 Abnormal lab findings: Abnormal Labs 11/28/16 11/28/16 11/28/16 14:16 16:02 16:02 WBC RBC Hgb Hct MCV MCH MCHC RDW Plt Count Lymph % (Auto) Humphreys % (Auto) Lymph # Humph[place]ys # Seg Neutrophils % Seg Neuts % (Manual) Lymphocytes % (Manual) Monocytes % (Manual) Nucleated RBC % Seg Neutrophils # Seg Neutrophils # Man Lymphocytes # (Manual) Monocytes # (Manual) PT 17.3 H INR 1.42 H APTT 38.0 H Heparin Anti-Xa Level POC ABG pH POC ABG pCO2 POC ABG pO2 Sodium Potassium 3.3 L Chloride 96.0 L Carbon Dioxide BUN 100 H Creatinine 3.4 H Glucose 235 H POC Glucose 500 H Hemoglobin A1c Lactic Acid Calcium Total Bilirubin Alkaline Phosphatase Ammonia Troponin T Total Protein Albumin HDL Cholesterol Urine Creatinine Crossmatch 11/28/16 11/28/16 11/29/16 16:02 21:30 05:50 WBC RBC Hgb Hct MCV MCH MCHC RDW Plt Count Lymph % (Auto) Humph[place]ys % (Auto) Lymph # [place]ys # Seg Neutrophils % Seg Neuts % (Manual) Lymphocytes % (Manual) Monocytes % (Manual) Nucleated RBC % Seg Neutrophils # Seg Neutrophils # Man Lymphocytes # (Manual) Monocytes # (Manual) PT INR APTT Heparin Anti-Xa Level POC ABG pH POC ABG pCO2 POC ABG pO2 Sodium Potassium Chloride Carbon Dioxide BUN Creatinine Glucose POC Glucose 68 L 40 L Hemoglobin A1c 10.6 H Lactic Acid Calcium Total Bilirubin Alkaline Phosphatase Ammonia Troponin T Total Protein Albumin HDL Cholesterol Urine Creatinine Crossmatch 11/29/16 11/29/16 11/29/16 06:33 08:37 08:37 WBC RBC Hgb 10.2 L Hct 30.9 L MCV MCH MCHC RDW 16.0 H Plt Count 104 L Lymph % (Auto) 2.4 L Humph[place]ys % (Auto) 8.5 H Lymph # 0.2 L Humphreys # 0.9 H Seg Neutrophils % 89.0 H Seg Neuts % (Manual) Lymphocytes % (Manual) Monocytes % (Manual) Nucleated RBC % Seg Neutrophils # 9.2 H Seg Neutrophils # Man Lymphocytes # (Manual) Monocytes # (Manual) PT INR APTT Heparin Anti-Xa Level POC ABG pH POC ABG pCO2 POC ABG pO2 Sodium Potassium Chloride Carbon Dioxide BUN 95 H Creatinine 2.9 H Glucose POC Glucose 57 L Hemoglobin A1c Lactic Acid Calcium Total Bilirubin Alkaline Phosphatase Ammonia Troponin T Total Protein Albumin HDL Cholesterol Urine Creatinine Crossmatch 11/29/16 11/29/16 11/29/16 11:41 12:48 15:44 WBC RBC Hgb Hct MCV MCH MCHC RDW Plt Count Lymph % (Auto) [place] % (Auto) Lymph # [place]ys # Seg Neutrophils % Seg Neuts % (Manual) Lymphocytes % (Manual) Monocytes % (Manual) Nucleated RBC % Seg Neutrophils # Seg Neutrophils # Man Lymphocytes # (Manual) Monocytes # (Manual) PT INR APTT Heparin Anti-Xa Level POC ABG pH POC ABG pCO2 POC ABG pO2 Sodium Potassium Chloride Carbon Dioxide BUN Creatinine Glucose POC Glucose 48 L 143 H 138 H Hemoglobin A1c Lactic Acid Calcium Total Bilirubin Alkaline Phosphatase Ammonia Troponin T Total Protein Albumin HDL Cholesterol Urine Creatinine Crossmatch 11/29/16 11/29/16 11/30/16 21:04 22:26 06:11 WBC RBC Hgb Hct MCV MCH MCHC RDW Plt Count Lymph % (Auto) [place] % (Auto) Lymph # [place] # Seg Neutrophils % Seg Neuts % (Manual) Lymphocytes % (Manual) Monocytes % (Manual) Nucleated RBC % Seg Neutrophils # Seg Neutrophils # Man Lymphocytes # (Manual) Monocytes # (Manual) PT INR APTT Heparin Anti-Xa Level POC ABG pH POC ABG pCO2 POC ABG pO2 Sodium Potassium Chloride Carbon Dioxide BUN Creatinine Glucose POC Glucose 49 L 165 H 121 H Hemoglobin A1c Lactic Acid Calcium Total Bilirubin Alkaline Phosphatase Ammonia Troponin T Total Protein Albumin HDL Cholesterol Urine Creatinine Crossmatch 11/30/16 11/30/16 11/30/16 08:53 08:53 10:00 WBC RBC Hgb 10.9 L Hct 33.2 L MCV MCH MCHC RDW 16.3 H Plt Count 96 L Lymph % (Auto) [place] % (Auto) Lymph # [place] # Seg Neutrophils % Seg Neuts % (Manual) 91.0 H Lymphocytes % (Manual) 2.0 L Monocytes % (Manual) Nucleated RBC % Seg Neutrophils # Seg Neutrophils # Man 9.3 H Lymphocytes # (Manual) 0.2 L Monocytes # (Manual) PT INR APTT Heparin Anti-Xa Level POC ABG pH POC ABG pCO2 POC ABG pO2 Sodium Potassium Chloride Carbon Dioxide BUN 78 H Creatinine 2.3 H Glucose 139 H POC Glucose Hemoglobin A1c Lactic Acid Calcium 8.3 L Total Bilirubin Alkaline Phosphatase Ammonia Troponin T Total Protein Albumin HDL Cholesterol Urine Creatinine 78.6 H Crossmatch 11/30/16 11/30/16 11/30/16 11:23 17:43 20:23 WBC RBC Hgb Hct MCV MCH MCHC RDW Plt Count Lymph % (Auto) [place] % (Auto) Lymph # [place] # Seg Neutrophils % Seg Neuts % (Manual) Lymphocytes % (Manual) Monocytes % (Manual) Nucleated RBC % Seg Neutrophils # Seg Neutrophils # Man Lymphocytes # (Manual) Monocytes # (Manual) PT INR APTT Heparin Anti-Xa Level POC ABG pH POC ABG pCO2 POC ABG pO2 Sodium Potassium Chloride Carbon Dioxide BUN Creatinine Glucose POC Glucose 169 H 57 L 69 L Hemoglobin A1c Lactic Acid Calcium Total Bilirubin Alkaline Phosphatase Ammonia Troponin T Total Protein Albumin HDL Cholesterol Urine Creatinine Crossmatch 11/30/16 11/30/16 12/01/16 20:37 22:12 05:30 WBC RBC Hgb Hct MCV MCH MCHC RDW Plt Count Lymph % (Auto) [place] % (Auto) Lymph # [place] # Seg Neutrophils % Seg Neuts % (Manual) Lymphocytes % (Manual) Monocytes % (Manual) Nucleated RBC % Seg Neutrophils # Seg Neutrophils # Man Lymphocytes # (Manual) Monocytes # (Manual) PT INR APTT Heparin Anti-Xa Level POC ABG pH POC ABG pCO2 POC ABG pO2 Sodium Potassium Chloride Carbon Dioxide BUN Creatinine Glucose POC Glucose 107 H 151 H Hemoglobin A1c Lactic Acid Calcium Total Bilirubin Alkaline Phosphatase Ammonia Troponin T 0.033 H Total Protein Albumin HDL Cholesterol 36 L Urine Creatinine Crossmatch 12/01/16 12/01/16 12/01/16 07:39 07:39 11:48 WBC 12.9 H RBC Hgb 10.9 L Hct 33.2 L MCV MCH MCHC RDW 16.6 H Plt Count 94 L Lymph % (Auto) [place] % (Auto) Lymph # [place] # Seg Neutrophils % Seg Neuts % (Manual) 98.0 H Lymphocytes % (Manual) 0 L Monocytes % (Manual) Nucleated RBC % Seg Neutrophils # Seg Neutrophils # Man 12.6 H Lymphocytes # (Manual) 0.0 L Monocytes # (Manual) PT INR APTT Heparin Anti-Xa Level POC ABG pH POC ABG pCO2 POC ABG pO2 Sodium Potassium Chloride Carbon Dioxide BUN 71 H Creatinine 2.1 H Glucose POC Glucose 193 H Hemoglobin A1c Lactic Acid Calcium 8.1 L Total Bilirubin Alkaline Phosphatase Ammonia Troponin T Total Protein Albumin HDL Cholesterol Urine Creatinine Crossmatch 12/01/16 12/01/16 12/02/16 17:02 21:17 06:05 WBC RBC Hgb Hct MCV MCH MCHC RDW Plt Count Lymph % (Auto) [place] % (Auto) Lymph # [place] # Seg Neutrophils % Seg Neuts % (Manual) Lymphocytes % (Manual) Monocytes % (Manual) Nucleated RBC % Seg Neutrophils # Seg Neutrophils # Man Lymphocytes # (Manual) Monocytes # (Manual) PT INR APTT Heparin Anti-Xa Level POC ABG pH POC ABG pCO2 POC ABG pO2 Sodium Potassium Chloride Carbon Dioxide BUN Creatinine Glucose POC Glucose 170 H 156 H < 40 L Hemoglobin A1c Lactic Acid Calcium Total Bilirubin Alkaline Phosphatase Ammonia Troponin T Total Protein Albumin HDL Cholesterol Urine Creatinine Crossmatch 12/02/16 12/02/16 12/02/16 06:34 06:41 07:48 WBC RBC Hgb 10.2 L Hct 31.4 L MCV MCH 27 L MCHC RDW 16.3 H Plt Count 89 L Lymph % (Auto) [place] % (Auto) Lymph # [place] # Seg Neutrophils % Seg Neuts % (Manual) 87.0 H Lymphocytes % (Manual) 7.0 L Monocytes % (Manual) Nucleated RBC % Seg Neutrophils # Seg Neutrophils # Man 8.9 H Lymphocytes # (Manual) 0.7 L Monocytes # (Manual) PT INR APTT Heparin Anti-Xa Level POC ABG pH POC ABG pCO2 POC ABG pO2 Sodium Potassium Chloride Carbon Dioxide BUN Creatinine Glucose POC Glucose 141 H 124 H Hemoglobin A1c Lactic Acid Calcium Total Bilirubin Alkaline Phosphatase Ammonia Troponin T Total Protein Albumin HDL Cholesterol Urine Creatinine Crossmatch 12/02/16 12/02/16 12/02/16 07:48 12:22 18:02 WBC RBC Hgb Hct MCV MCH MCHC RDW Plt Count Lymph % (Auto) [place] % (Auto) Lymph # [place] # Seg Neutrophils % Seg Neuts % (Manual) Lymphocytes % (Manual) Monocytes % (Manual) Nucleated RBC % Seg Neutrophils # Seg Neutrophils # Man Lymphocytes # (Manual) Monocytes # (Manual) PT INR APTT Heparin Anti-Xa Level POC ABG pH POC ABG pCO2 POC ABG pO2 Sodium 136 L Potassium Chloride Carbon Dioxide BUN 75 H Creatinine 2.7 H Glucose POC Glucose < 40 L 53 L Hemoglobin A1c Lactic Acid Calcium 7.9 L Total Bilirubin Alkaline Phosphatase Ammonia Troponin T Total Protein Albumin HDL Cholesterol Urine Creatinine Crossmatch 12/02/16 12/02/16 12/02/16 19:20 19:23 19:23 WBC 13.8 H RBC Hgb 10.9 L Hct 34.6 L MCV MCH 27 L MCHC 31 L RDW 16.2 H Plt Count 106 L Lymph % (Auto) [place] % (Auto) Lymph # [place] # Seg Neutrophils % Seg Neuts % (Manual) 86.0 H Lymphocytes % (Manual) 4.0 L Monocytes % (Manual) Nucleated RBC % Seg Neutrophils # Seg Neutrophils # Man 11.9 H Lymphocytes # (Manual) 0.6 L Monocytes # (Manual) 1.0 H PT 16.6 H INR 1.27 H APTT 45.4 H Heparin Anti-Xa Level POC ABG pH POC ABG pCO2 POC ABG pO2 Sodium Potassium Chloride 95.8 L Carbon Dioxide BUN 75 H Creatinine 2.8 H Glucose 105 H POC Glucose Hemoglobin A1c Lactic Acid Calcium 7.8 L Total Bilirubin 2.70 H Alkaline Phosphatase Ammonia Troponin T Total Protein 6.0 L Albumin 2.7 L HDL Cholesterol Urine Creatinine Crossmatch 12/02/16 12/02/16 12/03/16 19:39 21:14 01:15 WBC RBC Hgb Hct MCV MCH MCHC RDW Plt Count Lymph % (Auto) [place] % (Auto) Lymph # [place] # Seg Neutrophils % Seg Neuts % (Manual) Lymphocytes % (Manual) Monocytes % (Manual) Nucleated RBC % Seg Neutrophils # Seg Neutrophils # Man Lymphocytes # (Manual) Monocytes # (Manual) PT INR APTT Heparin Anti-Xa Level < 0.10 L POC ABG pH 7.214 L POC ABG pCO2 54.0 H POC ABG pO2 227 H Sodium Potassium Chloride Carbon Dioxide BUN Creatinine Glucose POC Glucose 141 H Hemoglobin A1c Lactic Acid Calcium Total Bilirubin Alkaline Phosphatase Ammonia Troponin T Total Protein Albumin HDL Cholesterol Urine Creatinine Crossmatch 12/03/16 12/03/16 12/03/16 04:15 05:15 06:04 WBC 45.9 H* RBC Hgb 10.5 L Hct 32.9 L MCV MCH 27 L MCHC RDW 16.6 H Plt Count 101 L Lymph % (Auto) [place] % (Auto) Lymph # [place] # Seg Neutrophils % Seg Neuts % (Manual) Lymphocytes % (Manual) 8.0 L Monocytes % (Manual) 8.0 H Nucleated RBC % Seg Neutrophils # Seg Neutrophils # Man 31.2 H Lymphocytes # (Manual) Monocytes # (Manual) 3.7 H PT INR APTT Heparin Anti-Xa Level POC ABG pH POC ABG pCO2 POC ABG pO2 72 L Sodium Potassium Chloride Carbon Dioxide BUN Creatinine Glucose POC Glucose 50 L Hemoglobin A1c Lactic Acid Calcium Total Bilirubin Alkaline Phosphatase Ammonia Troponin T Total Protein Albumin HDL Cholesterol Urine Creatinine Crossmatch 12/03/16 12/03/16 12/03/16 06:04 06:51 08:01 WBC RBC Hgb Hct MCV MCH MCHC RDW Plt Count Lymph % (Auto) [place] % (Auto) Lymph # [place] # Seg Neutrophils % Seg Neuts % (Manual) Lymphocytes % (Manual) Monocytes % (Manual) Nucleated RBC % Seg Neutrophils # Seg Neutrophils # Man Lymphocytes # (Manual) Monocytes # (Manual) PT INR APTT Heparin Anti-Xa Level POC ABG pH POC ABG pCO2 POC ABG pO2 Sodium 128 L D Potassium 6.8 H* D Chloride 94.2 L Carbon Dioxide 17 L BUN 77 H Creatinine 2.6 H Glucose POC Glucose 118 H Hemoglobin A1c Lactic Acid Calcium 7.6 L Total Bilirubin Alkaline Phosphatase Ammonia Troponin T 0.098 H Total Protein Albumin HDL Cholesterol Urine Creatinine Crossmatch 12/03/16 12/03/16 12/03/16 08:13 09:44 12:19 WBC RBC Hgb Hct MCV MCH MCHC RDW Plt Count Lymph % (Auto) [place] % (Auto) Lymph # [place] # Seg Neutrophils % Seg Neuts % (Manual) Lymphocytes % (Manual) Monocytes % (Manual) Nucleated RBC % Seg Neutrophils # Seg Neutrophils # Man Lymphocytes # (Manual) Monocytes # (Manual) PT INR APTT Heparin Anti-Xa Level POC ABG pH POC ABG pCO2 POC ABG pO2 Sodium Potassium Chloride Carbon Dioxide BUN Creatinine Glucose POC Glucose 107 H 115 H Hemoglobin A1c Lactic Acid 3.40 H* Calcium Total Bilirubin Alkaline Phosphatase Ammonia Troponin T Total Protein Albumin HDL Cholesterol Urine Creatinine Crossmatch 12/03/16 12/03/16 12/03/16 16:39 17:49 20:15 WBC 18.9 H RBC 3.04 L Hgb 8.4 L Hct 26.2 L MCV MCH MCHC RDW 16.6 H Plt Count 81 L Lymph % (Auto) [place] % (Auto) Lymph # [place] # Seg Neutrophils % Seg Neuts % (Manual) 94.0 H Lymphocytes % (Manual) 1.0 L Monocytes % (Manual) Nucleated RBC % Seg Neutrophils # Seg Neutrophils # Man 17.8 H Lymphocytes # (Manual) 0.2 L Monocytes # (Manual) PT INR APTT Heparin Anti-Xa Level POC ABG pH POC ABG pCO2 POC ABG pO2 Sodium Potassium Chloride Carbon Dioxide BUN Creatinine Glucose POC Glucose 151 H Hemoglobin A1c Lactic Acid 3.10 H* Calcium Total Bilirubin Alkaline Phosphatase Ammonia Troponin T Total Protein Albumin HDL Cholesterol Urine Creatinine Crossmatch 12/03/16 12/03/16 12/03/16 23:34 Unknown Unknown WBC 22.2 H RBC 3.16 L Hgb 8.6 L Hct 27.3 L MCV MCH 27 L MCHC 31 L RDW 16.9 H Plt Count 81 L Lymph % (Auto) [place] % (Auto) Lymph # [place] # Seg Neutrophils % Seg Neuts % (Manual) Lymphocytes % (Manual) Monocytes % (Manual) Nucleated RBC % Seg Neutrophils # Seg Neutrophils # Man Lymphocytes # (Manual) Monocytes # (Manual) PT INR APTT Heparin Anti-Xa Level POC ABG pH POC ABG pCO2 POC ABG pO2 Sodium 132 L Potassium Chloride 95.8 L Carbon Dioxide 19 L BUN 93 H Creatinine 3.4 H Glucose 130 H POC Glucose 188 H Hemoglobin A1c Lactic Acid Calcium 7.4 L Total Bilirubin Alkaline Phosphatase Ammonia Troponin T Total Protein Albumin HDL Cholesterol Urine Creatinine Crossmatch 12/04/16 12/04/16 12/04/16 04:57 05:45 06:00 WBC 17.8 H RBC 3.07 L Hgb 8.7 L Hct 26.1 L MCV MCH MCHC RDW 16.5 H Plt Count 93 L Lymph % (Auto) [place] % (Auto) Lymph # [place] # Seg Neutrophils % Seg Neuts % (Manual) 80.0 H Lymphocytes % (Manual) 7.0 L Monocytes % (Manual) Nucleated RBC % Seg Neutrophils # Seg Neutrophils # Man 14.2 H Lymphocytes # (Manual) Monocytes # (Manual) 1.1 H PT INR APTT Heparin Anti-Xa Level POC ABG pH 7.277 L POC ABG pCO2 POC ABG pO2 198 H Sodium Potassium Chloride Carbon Dioxide BUN Creatinine Glucose POC Glucose 186 H Hemoglobin A1c Lactic Acid Calcium Total Bilirubin Alkaline Phosphatase Ammonia Troponin T Total Protein Albumin HDL Cholesterol Urine Creatinine Crossmatch 12/04/16 12/04/16 12/04/16 06:00 07:23 11:50 WBC RBC Hgb Hct MCV MCH MCHC RDW Plt Count Lymph % (Auto) [place] % (Auto) Lymph # [place] # Seg Neutrophils % Seg Neuts % (Manual) Lymphocytes % (Manual) Monocytes % (Manual) Nucleated RBC % Seg Neutrophils # Seg Neutrophils # Man Lymphocytes # (Manual) Monocytes # (Manual) PT INR APTT Heparin Anti-Xa Level POC ABG pH POC ABG pCO2 POC ABG pO2 Sodium 133 L Potassium Chloride 96.0 L Carbon Dioxide 18 L BUN 103 H Creatinine 3.6 H Glucose 190 H POC Glucose 187 H 190 H Hemoglobin A1c Lactic Acid Calcium 7.7 L Total Bilirubin Alkaline Phosphatase Ammonia Troponin T Total Protein Albumin HDL Cholesterol Urine Creatinine Crossmatch 12/04/16 12/04/16 12/04/16 13:22 17:46 23:33 WBC RBC Hgb Hct MCV MCH MCHC RDW Plt Count Lymph % (Auto) [place] % (Auto) Lymph # [place] # Seg Neutrophils % Seg Neuts % (Manual) Lymphocytes % (Manual) Monocytes % (Manual) Nucleated RBC % Seg Neutrophils # Seg Neutrophils # Man Lymphocytes # (Manual) Monocytes # (Manual) PT INR APTT Heparin Anti-Xa Level POC ABG pH POC ABG pCO2 POC ABG pO2 Sodium Potassium Chloride Carbon Dioxide BUN Creatinine Glucose POC Glucose 264 H 263 H Hemoglobin A1c Lactic Acid 2.60 H* Calcium Total Bilirubin Alkaline Phosphatase Ammonia Troponin T Total Protein Albumin HDL Cholesterol Urine Creatinine Crossmatch 12/05/16 12/05/16 12/05/16 05:00 05:00 05:17 WBC 17.1 H RBC 3.03 L Hgb 8.2 L Hct 25.9 L MCV MCH 27 L MCHC RDW 16.4 H Plt Count 81 L Lymph % (Auto) 1.3 L [place] % (Auto) 9.7 H Lymph # 0.2 L [place] # 1.7 H Seg Neutrophils % 88.9 H Seg Neuts % (Manual) Lymphocytes % (Manual) Monocytes % (Manual) Nucleated RBC % Seg Neutrophils # 15.2 H Seg Neutrophils # Man Lymphocytes # (Manual) Monocytes # (Manual) PT INR APTT Heparin Anti-Xa Level POC ABG pH POC ABG pCO2 POC ABG pO2 Sodium 132 L Potassium Chloride 96.9 L Carbon Dioxide 19 L BUN 120 H Creatinine 4.8 H Glucose 193 H POC Glucose 229 H Hemoglobin A1c Lactic Acid Calcium 8.0 L Total Bilirubin Alkaline Phosphatase Ammonia Troponin T Total Protein Albumin HDL Cholesterol Urine Creatinine Crossmatch 12/05/16 12/05/16 12/05/16 06:00 11:46 17:53 WBC RBC Hgb Hct MCV MCH MCHC RDW Plt Count Lymph % (Auto) [place] % (Auto) Lymph # [place] # Seg Neutrophils % Seg Neuts % (Manual) Lymphocytes % (Manual) Monocytes % (Manual) Nucleated RBC % Seg Neutrophils # Seg Neutrophils # Man Lymphocytes # (Manual) Monocytes # (Manual) PT INR APTT Heparin Anti-Xa Level POC ABG pH POC ABG pCO2 32.5 L POC ABG pO2 124 H Sodium Potassium Chloride Carbon Dioxide BUN Creatinine Glucose POC Glucose 139 H 170 H Hemoglobin A1c Lactic Acid Calcium Total Bilirubin Alkaline Phosphatase Ammonia Troponin T Total Protein Albumin HDL Cholesterol Urine Creatinine Crossmatch 12/05/16 12/06/16 12/06/16 23:24 04:20 05:57 WBC RBC Hgb Hct MCV MCH MCHC RDW Plt Count Lymph % (Auto) [place] % (Auto) Lymph # [place] # Seg Neutrophils % Seg Neuts % (Manual) Lymphocytes % (Manual) Monocytes % (Manual) Nucleated RBC % Seg Neutrophils # Seg Neutrophils # Man Lymphocytes # (Manual) Monocytes # (Manual) PT INR APTT Heparin Anti-Xa Level POC ABG pH POC ABG pCO2 30.3 L POC ABG pO2 122 H Sodium Potassium Chloride Carbon Dioxide BUN Creatinine Glucose POC Glucose 153 H 166 H Hemoglobin A1c Lactic Acid Calcium Total Bilirubin Alkaline Phosphatase Ammonia Troponin T Total Protein Albumin HDL Cholesterol Urine Creatinine Crossmatch 12/06/16 12/06/16 12/06/16 06:00 06:00 11:32 WBC 18.1 H RBC 2.76 L Hgb 7.7 L Hct 23.4 L MCV MCH MCHC RDW 16.6 H Plt Count 62 L Lymph % (Auto) [place] % (Auto) Lymph # [place] # Seg Neutrophils % Seg Neuts % (Manual) 96.0 H Lymphocytes % (Manual) 0 L Monocytes % (Manual) Nucleated RBC % Seg Neutrophils # Seg Neutrophils # Man 17.4 H Lymphocytes # (Manual) 0.0 L Monocytes # (Manual) PT INR APTT Heparin Anti-Xa Level POC ABG pH POC ABG pCO2 POC ABG pO2 Sodium 134 L Potassium Chloride 96.8 L Carbon Dioxide 19 L BUN 117 H Creatinine 4.9 H Glucose 179 H POC Glucose 300 H Hemoglobin A1c Lactic Acid Calcium 8.0 L Total Bilirubin Alkaline Phosphatase Ammonia Troponin T Total Protein Albumin HDL Cholesterol Urine Creatinine Crossmatch 12/06/16 12/06/16 12/06/16 11:33 18:11 23:23 WBC RBC Hgb Hct MCV MCH MCHC RDW Plt Count Lymph % (Auto) [place] % (Auto) Lymph # [place] # Seg Neutrophils % Seg Neuts % (Manual) Lymphocytes % (Manual) Monocytes % (Manual) Nucleated RBC % Seg Neutrophils # Seg Neutrophils # Man Lymphocytes # (Manual) Monocytes # (Manual) PT INR APTT Heparin Anti-Xa Level POC ABG pH POC ABG pCO2 POC ABG pO2 Sodium Potassium Chloride Carbon Dioxide BUN Creatinine Glucose POC Glucose 204 H 246 H 225 H Hemoglobin A1c Lactic Acid Calcium Total Bilirubin Alkaline Phosphatase Ammonia Troponin T Total Protein Albumin HDL Cholesterol Urine Creatinine Crossmatch 12/07/16 12/07/16 12/07/16 04:50 05:19 05:40 WBC 15.6 H RBC 2.71 L Hgb 7.4 L Hct 22.6 L MCV 83 L MCH 27 L MCHC RDW 16.2 H Plt Count 61 L Lymph % (Auto) [place] % (Auto) Lymph # [place] # Seg Neutrophils % Seg Neuts % (Manual) 97.0 H Lymphocytes % (Manual) 0 L Monocytes % (Manual) Nucleated RBC % Seg Neutrophils # Seg Neutrophils # Man 15.1 H Lymphocytes # (Manual) 0.0 L Monocytes # (Manual) PT INR APTT Heparin Anti-Xa Level POC ABG pH POC ABG pCO2 31.3 L POC ABG pO2 Sodium Potassium Chloride Carbon Dioxide BUN Creatinine Glucose POC Glucose 238 H Hemoglobin A1c Lactic Acid Calcium Total Bilirubin Alkaline Phosphatase Ammonia Troponin T Total Protein Albumin HDL Cholesterol Urine Creatinine Crossmatch 12/07/16 12/07/16 12/07/16 05:40 11:43 16:09 WBC RBC Hgb Hct MCV MCH MCHC RDW Plt Count Lymph % (Auto) [place] % (Auto) Lymph # [place] # Seg Neutrophils % Seg Neuts % (Manual) Lymphocytes % (Manual) Monocytes % (Manual) Nucleated RBC % Seg Neutrophils # Seg Neutrophils # Man Lymphocytes # (Manual) Monocytes # (Manual) PT INR APTT Heparin Anti-Xa Level POC ABG pH POC ABG pCO2 POC ABG pO2 Sodium 136 L Potassium Chloride Carbon Dioxide 19 L BUN 122 H Creatinine 5.1 H Glucose 226 H POC Glucose 312 H Hemoglobin A1c Lactic Acid Calcium 7.9 L Total Bilirubin Alkaline Phosphatase Ammonia Troponin T Total Protein Albumin HDL Cholesterol Urine Creatinine Crossmatch See Detail 12/07/16 12/07/16 12/07/16 16:09 17:27 17:31 WBC RBC Hgb 7.0 L Hct 21.0 L MCV MCH MCHC RDW Plt Count Lymph % (Auto) [place] % (Auto) Lymph # [place] # Seg Neutrophils % Seg Neuts % (Manual) Lymphocytes % (Manual) Monocytes % (Manual) Nucleated RBC % Seg Neutrophils # Seg Neutrophils # Man Lymphocytes # (Manual) Monocytes # (Manual) PT INR APTT Heparin Anti-Xa Level POC ABG pH POC ABG pCO2 POC ABG pO2 Sodium Potassium Chloride Carbon Dioxide BUN Creatinine Glucose POC Glucose 312 H 242 H Hemoglobin A1c Lactic Acid Calcium Total Bilirubin Alkaline Phosphatase Ammonia Troponin T Total Protein Albumin HDL Cholesterol Urine Creatinine Crossmatch 12/07/16 12/08/16 12/08/16 23:52 04:00 04:00 WBC 13.2 H RBC 2.50 L Hgb 7.0 L Hct 21.1 L MCV MCH MCHC RDW 16.8 H Plt Count 44 L Lymph % (Auto) 1.5 L [place] % (Auto) 9.1 H Lymph # 0.2 L Humphreys # 1.2 H Seg Neutrophils % 88.6 H Seg Neuts % (Manual) Lymphocytes % (Manual) Monocytes % (Manual) Nucleated RBC % Seg Neutrophils # 11.7 H Seg Neutrophils # Man Lymphocytes # (Manual) Monocytes # (Manual) PT INR APTT Heparin Anti-Xa Level POC ABG pH POC ABG pCO2 POC ABG pO2 Sodium Potassium Chloride Carbon Dioxide 21 L BUN 127 H Creatinine 5.0 H Glucose 148 H POC Glucose 173 H Hemoglobin A1c Lactic Acid Calcium 8.2 L Total Bilirubin 2.00 H Alkaline Phosphatase 132 H Ammonia Troponin T Total Protein 5.6 L Albumin 2.6 L HDL Cholesterol Urine Creatinine Crossmatch 12/08/16 12/08/16 12/08/16 05:34 09:20 11:50 WBC RBC Hgb 6.9 L Hct 21.4 L MCV MCH MCHC RDW Plt Count Lymph % (Auto) Humph[place]ys % (Auto) Lymph # [place]ys # Seg Neutrophils % Seg Neuts % (Manual) Lymphocytes % (Manual) Monocytes % (Manual) Nucleated RBC % Seg Neutrophils # Seg Neutrophils # Man Lymphocytes # (Manual) Monocytes # (Manual) PT INR APTT Heparin Anti-Xa Level POC ABG pH POC ABG pCO2 POC ABG pO2 Sodium Potassium Chloride Carbon Dioxide BUN Creatinine Glucose POC Glucose 134 H Hemoglobin A1c Lactic Acid Calcium Total Bilirubin Alkaline Phosphatase Ammonia 90.0 H Troponin T Total Protein Albumin HDL Cholesterol Urine Creatinine Crossmatch 06/12/08/16 12/08/16 15:40 17:35 18:20 WBC RBC Hgb 9.2 L Hct 28.1 L D MCV MCH MCHC RDW Plt Count Lymph % (Auto) [place] % (Auto) Lymph # Humph[place] # Seg Neutrophils % Seg Neuts % (Manual) Lymphocytes % (Manual) Monocytes % (Manual) Nucleated RBC % Seg Neutrophils # Seg Neutrophils # Man Lymphocytes # (Manual) Monocytes # (Manual) PT INR APTT Heparin Anti-Xa Level POC ABG pH POC ABG pCO2 POC ABG pO2 Sodium Potassium Chloride Carbon Dioxide BUN Creatinine Glucose POC Glucose 111 H 146 H Hemoglobin A1c Lactic Acid Calcium Total Bilirubin Alkaline Phosphatase Ammonia Troponin T Total Protein Albumin HDL Cholesterol Urine Creatinine Crossmatch 12/09/16 12/09/16 12/09/16 00:10 04:13 05:50 WBC 17.6 H RBC 3.48 L Hgb 9.5 L Hct 29.2 L MCV MCH 27 L MCHC RDW 15.8 H Plt Count 75 L Lymph % (Auto) [place] % (Auto) Lymph # Humph[place] # Seg Neutrophils % Seg Neuts % (Manual) 94.0 H Lymphocytes % (Manual) 2.0 L Monocytes % (Manual) Nucleated RBC % Seg Neutrophils # Seg Neutrophils # Man 16.5 H Lymphocytes # (Manual) 0.4 L Monocytes # (Manual) PT INR APTT Heparin Anti-Xa Level POC ABG pH POC ABG pCO2 POC ABG pO2 107 H Sodium Potassium Chloride Carbon Dioxide BUN Creatinine Glucose POC Glucose 64 L Hemoglobin A1c Lactic Acid Calcium Total Bilirubin Alkaline Phosphatase Ammonia Troponin T Total Protein Albumin HDL Cholesterol Urine Creatinine Crossmatch 12/09/16 12/09/16 12/09/16 05:50 12:16 12:56 WBC RBC Hgb Hct MCV MCH MCHC RDW Plt Count Lymph % (Auto) [place] % (Auto) Lymph # Humph[place]ys # Seg Neutrophils % Seg Neuts % (Manual) Lymphocytes % (Manual) Monocytes % (Manual) Nucleated RBC % Seg Neutrophils # Seg Neutrophils # Man Lymphocytes # (Manual) Monocytes # (Manual) PT INR APTT Heparin Anti-Xa Level POC ABG pH POC ABG pCO2 34.1 L POC ABG pO2 79 L Sodium Potassium Chloride Carbon Dioxide BUN 92 H Creatinine 3.9 H Glucose 70 L POC Glucose 113 H Hemoglobin A1c Lactic Acid Calcium Total Bilirubin Alkaline Phosphatase Ammonia Troponin T Total Protein Albumin HDL Cholesterol Urine Creatinine Crossmatch 12/09/16 12/09/16 12/10/16 17:52 23:33 05:07 WBC RBC Hgb Hct MCV MCH MCHC RDW Plt Count Lymph % (Auto) [place] % (Auto) Lymph # [place] # Seg Neutrophils % Seg Neuts % (Manual) Lymphocytes % (Manual) Monocytes % (Manual) Nucleated RBC % Seg Neutrophils # Seg Neutrophils # Man Lymphocytes # (Manual) Monocytes # (Manual) PT INR APTT Heparin Anti-Xa Level POC ABG pH POC ABG pCO2 POC ABG pO2 Sodium Potassium Chloride Carbon Dioxide BUN Creatinine Glucose POC Glucose 146 H 150 H 142 H Hemoglobin A1c Lactic Acid Calcium Total Bilirubin Alkaline Phosphatase Ammonia Troponin T Total Protein Albumin HDL Cholesterol Urine Creatinine Crossmatch 12/10/16 12/10/16 12/10/16 06:15 08:30 09:45 WBC RBC Hgb 8.7 L Hct 27.0 L MCV MCH MCHC RDW Plt Count 71 L Lymph % (Auto) [place] % (Auto) Lymph # [place] # Seg Neutrophils % Seg Neuts % (Manual) Lymphocytes % (Manual) Monocytes % (Manual) Nucleated RBC % Seg Neutrophils # Seg Neutrophils # Man Lymphocytes # (Manual) Monocytes # (Manual) PT INR APTT Heparin Anti-Xa Level POC ABG pH 7.508 H 7.558 H POC ABG pCO2 32.8 L 29.1 L POC ABG pO2 72 L Sodium Potassium Chloride Carbon Dioxide BUN Creatinine Glucose POC Glucose Hemoglobin A1c Lactic Acid Calcium Total Bilirubin Alkaline Phosphatase Ammonia Troponin T Total Protein Albumin HDL Cholesterol Urine Creatinine Crossmatch 12/10/16 12/10/16 12/10/16 12:06 18:25 23:44 WBC RBC Hgb Hct MCV MCH MCHC RDW Plt Count Lymph % (Auto) [place] % (Auto) Lymph # Humph[place] # Seg Neutrophils % Seg Neuts % (Manual) Lymphocytes % (Manual) Monocytes % (Manual) Nucleated RBC % Seg Neutrophils # Seg Neutrophils # Man Lymphocytes # (Manual) Monocytes # (Manual) PT INR APTT Heparin Anti-Xa Level POC ABG pH POC ABG pCO2 POC ABG pO2 Sodium Potassium Chloride Carbon Dioxide BUN Creatinine Glucose POC Glucose 264 H 126 H 195 H Hemoglobin A1c Lactic Acid Calcium Total Bilirubin Alkaline Phosphatase Ammonia Troponin T Total Protein Albumin HDL Cholesterol Urine Creatinine Crossmatch 12/11/16 12/11/16 12/11/16 05:36 09:05 11:49 WBC RBC Hgb Hct MCV MCH MCHC RDW Plt Count Lymph % (Auto) [place] % (Auto) Lymph # Humph[place] # Seg Neutrophils % Seg Neuts % (Manual) Lymphocytes % (Manual) Monocytes % (Manual) Nucleated RBC % Seg Neutrophils # Seg Neutrophils # Man Lymphocytes # (Manual) Monocytes # (Manual) PT INR APTT Heparin Anti-Xa Level POC ABG pH 7.517 H POC ABG pCO2 32.2 L POC ABG pO2 Sodium Potassium Chloride Carbon Dioxide BUN Creatinine Glucose POC Glucose 196 H 187 H Hemoglobin A1c Lactic Acid Calcium Total Bilirubin Alkaline Phosphatase Ammonia Troponin T Total Protein Albumin HDL Cholesterol Urine Creatinine Crossmatch 12/11/16 12/12/16 12/12/16 18:02 00:01 05:23 WBC RBC Hgb Hct MCV MCH MCHC RDW Plt Count Lymph % (Auto) [place] % (Auto) Lymph # Humph[place]ys # Seg Neutrophils % Seg Neuts % (Manual) Lymphocytes % (Manual) Monocytes % (Manual) Nucleated RBC % Seg Neutrophils # Seg Neutrophils # Man Lymphocytes # (Manual) Monocytes # (Manual) PT INR APTT Heparin Anti-Xa Level POC ABG pH POC ABG pCO2 POC ABG pO2 Sodium Potassium Chloride Carbon Dioxide BUN Creatinine Glucose POC Glucose 257 H 203 H 274 H Hemoglobin A1c Lactic Acid Calcium Total Bilirubin Alkaline Phosphatase Ammonia Troponin T Total Protein Albumin HDL Cholesterol Urine Creatinine Crossmatch 12/12/16 12/12/16 06:30 06:30 WBC 11.3 H RBC 3.30 L Hgb 9.0 L Hct 28.2 L MCV MCH 27 L MCHC RDW 16.8 H Plt Count 88 L Lymph % (Auto) Humph[place] % (Auto) Lymph # [place] # Seg Neutrophils % Seg Neuts % (Manual) 99.0 H Lymphocytes % (Manual) 0 L Monocytes % (Manual) Nucleated RBC % 1.0 H Seg Neutrophils # Seg Neutrophils # Man 11.2 H Lymphocytes # (Manual) 0.0 L Monocytes # (Manual) PT INR APTT Heparin Anti-Xa Level POC ABG pH POC ABG pCO2 POC ABG pO2 Sodium 136 L Potassium Chloride 97.1 L Carbon Dioxide BUN 70 H Creatinine 3.4 H Glucose 256 H POC Glucose Hemoglobin A1c Lactic Acid Calcium 8.0 L Total Bilirubin Alkaline Phosphatase Ammonia Troponin T Total Protein Albumin HDL Cholesterol Urine Creatinine Crossmatch Chest x-ray: image reviewed (Cardiomegaly with enlarged pulmonary arteries and some vascular congestion.)
--- NOTE | 2016-12-12 10:56 | XRay Report ---
Single view chest: Compared to 12/08/16. History: Hypoxemia. Findings: Marked cardiomegaly. Trachea is midline. Stable pacemaker. Pulmonary venous congestion with bilateral pleural effusion. Slight increase in congestion compared to previous study. Impression: Slight increase in congestion compared to previous study.
[2016-12-12] MEDS ORDERED: LEVEMIR SUB-Q SCH (11:00)
[2016-12-12] MEDS: HEPARIN IV PRN (13:55)
--- NOTE | 2016-12-12 15:30 | Progress Note ---
Assessment and Plan Assessment and plan: S/P in house cardiac arrest - Patient extubated yesterday - Patient is drowsy likely from anoxic brain injury Bilateral DM leg ulcer - treated with IV rocephin for 10days - On topical antibacterials DM - Sliding scale insulin Acute on chronic kidney disease - patient is on dialysis MWF - Nephrology following Hypertension - Doesn't need antihypertensive medication CAD Chronic systolic heart failure a.fib - Low-dose carvedilol - Cardiology following Thrombocytopenia - We will monitor - No chemical prophylaxis GI bleed - Secondary to gastritis/tendinitis - Continue PPI - H&H stable Diarrhea - C. difficile nagative DVT prophylaxis - SCD Disposition Continue ICU care The high probability of a clinically significant, sudden or life threatening deterioration of the [neurology, CV, repiratory] system(s) required my full and direct attention, intervention and personal management. The aggregate critical care time was [31] minutes. This time is in addition to time spent performing reported procedures but includes the following: [x] Data Review and interpretation [x] Patient assessment and monitoring of vital signs [x] Documentation [x] Medication orders and management History Interval history: Patient was seen and evaluated this morning, patient is on HF oxygen. Hospitalist Physical - Physical exam Narrative exam: Patient extubated yesterday. The patient appeared well nourished and normally developed. Vital signs as documented. Head exam is unremarkable. No scleral icterus . Neck is without jugular venous distension, thyromegaly, or carotid bruits. Lungs are clear to auscultation. Cardiac exam reveals regular rate and Rhythm. First and second heart sounds normal. No murmurs, rubs or gallops. Abdominal exam reveals normal bowel sounds, no masses, no organomegaly and no aortic enlargement. Extremities significant for bilateral leg ulcer around the calf area, clean dressing around it. 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 - Constitutional Vitals: Temp Pulse Resp BP Pulse Ox 97.7 F 94 H 22 124/64 100 12/12/16 13:50 12/12/16 15:25 12/12/16 15:25 12/12/16 15:03 12/12/16 13:01 General appearance: Present: no acute distress, other (orally intubated on ventilatory support and sedated) Results - Labs CBC & Chem 7: 12/12/16 06:30 12/12/16 06:30 Labs: Laboratory Last Values WBC 11.3 K/mm3 (4.5-11.0) H 12/12/16 06:30 RBC 3.30 M/mm3 (3.65-5.03) L 12/12/16 06:30 Hgb 9.0 gm/dl (11.8-15.2) L 12/12/16 06:30 Hct 28.2 % (35.5-45.6) L 12/12/16 06:30 MCV 85 fl (84-94) 12/12/16 06:30 MCH 27 pg (28-32) L 12/12/16 06:30 MCHC 32 % (32-34) 12/12/16 06:30 RDW 16.8 % (13.2-15.2) H 12/12/16 06:30 Plt Count 88 K/mm3 (140-440) L 12/12/16 06:30 Lymph % (Auto) 1.5 % (13.4-35.0) 12/08/16 04:00 [facility] % (Auto) 9.1 % (0.0-7.3) H 12/08/16 04:00 Eos % (Auto) 0.7 % (0.0-4.3) 12/08/16 04:00 Baso % (Auto) 0.1 % (0.0-1.8) 12/08/16 04:00 Lymph # 0.2 K/mm3 (1.2-5.4) L 12/08/16 04:00 [facility] # 1.2 K/mm3 (0.0-0.8) H 12/08/16 04:00 Eos # 0.1 K/mm3 (0.0-0.4) 12/08/16 04:00 Baso # 0.0 K/mm3 (0.0-0.1) 12/08/16 04:00 Add Manual Diff Complete 12/12/16 06:30 Total Counted 100 12/12/16 06:30 Seg Neutrophils % [employer] 12/12/16 06:30 Seg Neuts % (Manual) 99.0 % (40.0-70.0) H 12/12/16 06:30 Band Neutrophils % 0 % 12/12/16 06:30 Lymphocytes % (Manual) 0 % (13.4-35.0) L 12/12/16 06:30 Reactive Lymphs % (Man) 0 % 12/12/16 06:30 Monocytes % (Manual) 1.0 % (0.0-7.3) 12/12/16 06:30 Eosinophils % (Manual) 0 % (0.0-4.3) 12/12/16 06:30 Basophils % (Manual) 0 % (0.0-1.8) 12/12/16 06:30 Metamyelocytes % 0 % 12/12/16 06:30 Myelocytes % 0 % 12/12/16 06:30 Promyelocytes % 0 % 12/12/16 06:30 Blast Cells % 0 % 12/12/16 06:30 Nucleated RBC % 1.0 % (0.0-0.9) H 12/12/16 06:30 Seg Neutrophils # 11.7 K/mm3 (1.8-7.7) H 12/08/16 04:00 Seg Neutrophils # Man 11.2 K/mm3 (1.8-7.7) H 12/12/16 06:30 Band Neutrophils # 0.0 K/mm3 12/12/16 06:30 Lymphocytes # (Manual) 0.0 K/mm3 (1.2-5.4) L 12/12/16 06:30 Abs React Lymphs (Man) 0.0 K/mm3 12/12/16 06:30 Monocytes # (Manual) 0.1 K/mm3 (0.0-0.8) 12/12/16 06:30 Eosinophils # (Manual) 0.0 K/mm3 (0.0-0.4) 12/12/16 06:30 Basophils # (Manual) 0.0 K/mm3 (0.0-0.1) 12/12/16 06:30 Metamyelocytes # 0.0 K/mm3 12/12/16 06:30 Myelocytes # 0.0 K/mm3 12/12/16 06:30 Promyelocytes # 0.0 K/mm3 12/12/16 06:30 Blast Cells # 0.0 K/mm3 12/12/16 06:30 WBC Morphology Not Reportable 12/12/16 06:30 Hypersegmented Neuts Not Reportable 12/12/16 06:30 Hyposegmented Neuts Not Reportable 12/12/16 06:30 Hypogranular Neuts Not Reportable 12/12/16 06:30 Smudge Cells Not Reportable 12/12/16 06:30 Toxic Granulation Not Reportable 12/12/16 06:30 Toxic Vacuolation Not Reportable 12/12/16 06:30 Dohle Bodies Not Reportable 12/12/16 06:30 Pelger-Huet Anomaly Not Reportable 12/12/16 06:30 Demetra Rods Not Reportable 12/12/16 06:30 Platelet Estimate Consistent w auto 12/12/16 06:30 Clumped Platelets Not Reportable 12/12/16 06:30 Plt Clumps, EDTA Not Reportable 12/12/16 06:30 Large Platelets Not Reportable 12/12/16 06:30 Giant Platelets Not Reportable 12/12/16 06:30 Platelet Satelliting Not Reportable 12/12/16 06:30 Plt Morphology Comment Not Reportable 12/12/16 06:30 RBC Morphology Not Reportable 12/12/16 06:30 Dimorphic RBCs Not Reportable 12/12/16 06:30 Polychromasia Not Reportable 12/12/16 06:30 Hypochromasia Few 12/12/16 06:30 Poikilocytosis Not Reportable 12/12/16 06:30 Anisocytosis 1+ 12/12/16 06:30 Microcytosis Not Reportable 12/12/16 06:30 Macrocytosis Not Reportable 12/12/16 06:30 Spherocytes Not Reportable 12/12/16 06:30 Pappenheimer Bodies Not Reportable 12/12/16 06:30 Sickle Cells Not Reportable 12/12/16 06:30 Target Cells Few 12/12/16 06:30 Tear Drop Cells Not Reportable 12/12/16 06:30 Ovalocytes Not Reportable 12/12/16 06:30 Helmet Cells Not Reportable 12/12/16 06:30 [place] Bodies Not Reportable 12/12/16 06:30 Cantil Rings Not Reportable 12/12/16 06:30 Hunter Cells Not Reportable 12/12/16 06:30 Bite Cells Not Reportable 12/12/16 06:30 Crenated Cell Not Reportable 12/12/16 06:30 Elliptocytes Not Reportable 12/12/16 06:30 Acanthocytes (Spur) Not Reportable 12/12/16 06:30 Rouleaux Not Reportable 12/12/16 06:30 Hemoglobin C Crystals Not Reportable 12/12/16 06:30 Schistocytes Not Reportable 12/12/16 06:30 Malaria parasites Not Reportable 12/12/16 06:30 Romeo Bodies Not Reportable 12/12/16 06:30 Hem Pathologist Commnt No 12/12/16 06:30 PT 16.6 Sec. (12.2-14.9) H 12/02/16 19:20 INR 1.27 (0.87-1.13) H 12/02/16 19:20 APTT 45.4 Sec. (24.2-36.6) H 12/02/16 19:20 Heparin Anti-Xa Level < 0.10 U.I./ml (0.3-0.7) L 12/03/16 01:15 POC ABG pH 7.517 (7.35-7.45) H 12/11/16 09:05 POC ABG pCO2 32.2 (35-45) L 12/11/16 09:05 POC ABG pO2 97 (80-105) 12/11/16 09:05 POC ABG HCO3 26.1 12/11/16 09:05 POC ABG Total CO2 27 12/11/16 09:05 POC ABG O2 Sat 98 12/11/16 09:05 POC ABG Base Excess 3 12/11/16 09:05 FiO2 30 % 12/11/16 09:05 Sodium 136 mmol/L (137-145) L 12/12/16 06:30 Potassium 4.5 mmol/L (3.6-5.0) 12/12/16 06:30 Chloride 97.1 mmol/L (98-107) L 12/12/16 06:30 Carbon Dioxide 25 mmol/L (22-30) 12/12/16 06:30 Anion Gap 18 mmol/L 12/12/16 06:30 BUN 70 mg/dL (9-20) H 12/12/16 06:30 Creatinine 3.4 mg/dL (0.8-1.5) H 12/12/16 06:30 Estimated GFR 22 ml/min 12/12/16 06:30 BUN/Creatinine Ratio 20.58 % 12/12/16 06:30 Glucose 256 mg/dL (75-100) H 12/12/16 06:30 POC Glucose 190 (70-105) H 12/12/16 12:03 Hemoglobin A1c 10.6 % (4-6) H 11/28/16 16:02 Lactic Acid 2.60 mmol/L (0.7-2.0) H* 12/04/16 13:22 Calcium 8.0 mg/dL (8.4-10.2) L 12/12/16 06:30 Magnesium 2.10 mg/dL (1.7-2.3) 12/08/16 04:00 Total Bilirubin 2.00 mg/dL (0.1-1.2) H 12/08/16 04:00 AST 35 units/L (5-40) 12/08/16 04:00 ALT 37 units/L (7-56) 12/08/16 04:00 Alkaline Phosphatase 132 units/L (35-129) H 12/08/16 04:00 Ammonia 90.0 umol/L (25-60) H 12/08/16 11:50 Total Creatine Kinase 59 units/L (55-170) 12/02/16 19:23 CK-MB (CK-2) 1.9 ng/mL (0.0-4.0) 12/02/16 19:23 CK-MB (CK-2) Rel Index 3.2 (0-4) 12/02/16 19:23 Troponin T 0.098 ng/mL (0.00-0.029) H 12/03/16 08:01 Total Protein 5.6 g/dL (6.3-8.2) L 12/08/16 04:00 Albumin 2.6 g/dL (3.9-5) L 12/08/16 04:00 Albumin/Globulin Ratio 0.9 % 12/08/16 04:00 Triglycerides 72 mg/dL (2-149) 11/30/16 20:37 Cholesterol 132 mg/dL (50-199) 11/30/16 20:37 LDL Cholesterol Direct 82 mg/dL (50-130) 11/30/16 20:37 HDL Cholesterol 36 mg/dL (40-59) L 11/30/16 20:37 Cholesterol/HDL Ratio 3.66 % 11/30/16 20:37 TSH 0.764 mlU/mL (0.270-4.200) 12/08/16 11:50 Urine Color Yellow (Yellow) 11/30/16 10:00 Urine Turbidity Clear (Clear) 11/30/16 10:00 Urine pH 6.0 (5.0-7.0) 11/30/16 10:00 Ur Specific [place] 1.018 (1.003-1.030) 11/30/16 10:00 Urine Protein 30 mg/dl mg/dL (Negative) 11/30/16 10:00 Urine Glucose (UA) Neg mg/dL (Negative) 11/30/16 10:00 Urine Ketones Neg mg/dL (Negative) 11/30/16 10:00 Urine Blood Neg (Negative) 11/30/16 10:00 Urine Nitrite Neg (Negative) 11/30/16 10:00 Urine Bilirubin Neg (Negative) 11/30/16 10:00 Urine Urobilinogen < 2.0 mg/dL (<2.0) 11/30/16 10:00 Ur Leukocyte Esterase Tr (Negative) 11/30/16 10:00 Urine WBC (Auto) 2.0 /HPF (0.0-6.0) 11/30/16 10:00 Urine RBC (Auto) < 1.0 /HPF (0.0-6.0) 11/30/16 10:00 U Epithel Cells (Auto) < 1.0 /HPF (0-13.0) 11/30/16 10:00 Urine Eosinophils None seen (None Seen) 11/30/16 10:00 Urine Creatinine 78.6 mg/dL (0.1-20.0) H 11/30/16 10:00 Urine Sodium 10 mEq/L 11/30/16 10:00 Vancomycin Trough 19.0 ug/mL (5.0-20.0) 12/03/16 06:04 Random Vancomycin 24.7 ug/mL (0-40.0) 12/05/16 05:00 Hepatitis A IgM Ab Non-reactive (NonReactive) 12/08/16 12:20 Hep Bs Antigen Non-reactive (Negative) 12/08/16 12:20 Hep B Core IgM Ab Non-reactive (NonReactive) 12/08/16 12:20 Hepatitis C Antibody Non-reactive (NonReactive) 12/08/16 12:20 Blood Type B POSITIVE 12/07/16 16:09 Antibody Screen TNR 12/07/16 16:09 RHONDA Antibody Screen Negative 12/07/16 16:09 Crossmatch See Detail 12/07/16 16:09
[2016-12-12] MEDS: TYLENOL PO PRN (21:21)
[2016-12-13] MEDS: TYLENOL PO PRN (04:36)
[2016-12-13] MEDS: NOVOLOG SUB-Q SCH ×3 (06:00→12:18)
[2016-12-13 06:08] LABS: Hematocrit 25.8 % (35.5-45.6); Hemoglobin 8.4 gm/dl (11.8-15.2)
[2016-12-13 06:46] LABS: BUN/Creatinine Ratio 18.27; Calcium 7.7 mg/dL (8.4-10.2); Chloride 99.5 mmol/L (98-107); Potassium 4.2 mmol/L (3.6-5.0)
[2016-12-13] MEDS: XOPENEX IH SCH ×3 (07:55→20:38)
--- NOTE | 2016-12-13 09:30 | Progress Note ---
Assessment and Plan 71 y/o male with cardiac arrest, asystole with unknown down time and ROSC 1. Stopped PRN sedatives. 2. Will need PRN NT suctioning, maintain elevated head of bed, aspiration precautions. At least 3-4x daily. 3. HD tomorrow, continue MWF per last renal note. 4. Will need speech eval and assessment, especially now that mental status has improved 5. Foot pumps for DVT prophylaxis, given leg ulcers 6. Continue tube feeds until assessed by speech. 7. Improvement in mental status today. Feel safe for transfer to floor. Maintain aspiration precautions. Dropped Levemir to 5, IMS to follow up on blood sugars on the floor. Subjective Date of service: 12/13/16 Principal diagnosis: bilateral leg wounds; TREMAINE Interval history: Mental status is better. Answers questions appropriately this am although mumbling a bit. No family at bedside. Tolerating feeds but blood sugar relatively low this am compared other readings. Objective Vital Signs - 12hr 12/12/16 12/12/16 12/12/16 22:01 22:21 23:01 Temperature Pulse Rate 78 86 Pulse Rate [ Anterior Bilateral Throughout] Pulse Rate [ From Monitor] Pulse Rate [ Posterior Bilateral Throughout] Respiratory 21 20 22 Rate Respiratory Rate [Anterior Bilateral Throughout] Respiratory Rate [Posterior Bilateral Throughout] Blood Pressure 121/47 112/46 O2 Sat by Pulse 100 100 Oximetry 12/13/16 12/13/16 12/13/16 00:00 00:25 01:00 Temperature 98.4 F Pulse Rate 90 89 Pulse Rate [ Anterior Bilateral Throughout] Pulse Rate [ 90 From Monitor] Pulse Rate [ Posterior Bilateral Throughout] Respiratory 22 24 Rate Respiratory Rate [Anterior Bilateral Throughout] Respiratory Rate [Posterior Bilateral Throughout] Blood Pressure 102/46 107/56 O2 Sat by Pulse 97 100 Oximetry 12/13/16 12/13/16 12/13/16 02:00 03:00 03:45 Temperature 98 F Pulse Rate 89 88 Pulse Rate [ Anterior Bilateral Throughout] Pulse Rate [ From Monitor] Pulse Rate [ Posterior Bilateral Throughout] Respiratory 24 16 Rate Respiratory Rate [Anterior Bilateral Throughout] Respiratory Rate [Posterior Bilateral Throughout] Blood Pressure 121/70 O2 Sat by Pulse 100 99 Oximetry 12/13/16 12/13/16 12/13/16 04:00 04:36 05:00 Temperature Pulse Rate 92 H 90 Pulse Rate [ Anterior Bilateral Throughout] Pulse Rate [ 92 H From Monitor] Pulse Rate [ Posterior Bilateral Throughout] Respiratory 22 15 27 H Rate Respiratory Rate [Anterior Bilateral Throughout] Respiratory Rate [Posterior Bilateral Throughout] Blood Pressure 135/73 117/72 O2 Sat by Pulse 99 100 Oximetry 12/13/16 12/13/16 12/13/16 05:36 06:00 07:00 Temperature Pulse Rate 89 89 Pulse Rate [ Anterior Bilateral Throughout] Pulse Rate [ From Monitor] Pulse Rate [ Posterior Bilateral Throughout] Respiratory 16 17 17 Rate Respiratory Rate [Anterior Bilateral Throughout] Respiratory Rate [Posterior Bilateral Throughout] Blood Pressure 108/63 109/58 O2 Sat by Pulse 100 97 Oximetry 12/13/16 12/13/16 07:55 08:08 Temperature Pulse Rate Pulse Rate [ 91 H Anterior Bilateral Throughout] Pulse Rate [ From Monitor] Pulse Rate [ 77 Posterior Bilateral Throughout] Respiratory Rate Respiratory 24 Rate [Anterior Bilateral Throughout] Respiratory 24 Rate [Posterior Bilateral Throughout] Blood Pressure O2 Sat by Pulse 100 Oximetry Constitutional: alert, other (does not follow commands) Eyes: other (pupils reactive and equal) ENT: oropharynx dry Neck: supple, no JVD Ascultation: Bilateral: clear, diminished breath sounds Percussion: Bilateral: not dull Tactile fremitus: Bilateral: other (unable to assess as patient will not follow commands) Cardiovascular: regular rate and rhythm Gastrointestinal: normoactive bowel sounds, soft, non-distended Integumentary: normal Extremities: cool, edema (right arm edema), other (leg ulcers covered) Neurologic: pupils equal and round, other (moving spontaneously,RASS 0-1) CBC and BMP: 12/13/16 04:30 12/13/16 04:30 ABG, PT/INR, D-dimer: ABG POC ABG pH 7.517 (7.35-7.45) H 12/11/16 09:05 POC ABG pCO2 32.2 (35-45) L 12/11/16 09:05 POC ABG pO2 97 (80-105) 12/11/16 09:05 POC ABG HCO3 26.1 12/11/16 09:05 POC ABG Total CO2 27 12/11/16 09:05 POC ABG O2 Sat 98 12/11/16 09:05 PT/INR, D-dimer PT 16.6 Sec. (12.2-14.9) H 12/02/16 19:20 INR 1.27 (0.87-1.13) H 12/02/16 19:20 Abnormal lab findings: Abnormal Labs 11/28/16 11/28/16 11/28/16 14:16 16:02 16:02 WBC RBC Hgb Hct MCV MCH MCHC RDW Plt Count Lymph % (Auto) [place] % (Auto) Lymph # [place] # Seg Neutrophils % Seg Neuts % (Manual) Lymphocytes % (Manual) Monocytes % (Manual) Nucleated RBC % Seg Neutrophils # Seg Neutrophils # Man Lymphocytes # (Manual) Monocytes # (Manual) PT 17.3 H INR 1.42 H APTT 38.0 H Heparin Anti-Xa Level POC ABG pH POC ABG pCO2 POC ABG pO2 Sodium Potassium 3.3 L Chloride 96.0 L Carbon Dioxide BUN 100 H Creatinine 3.4 H Glucose 235 H POC Glucose 500 H Hemoglobin A1c Lactic Acid Calcium Total Bilirubin Alkaline Phosphatase Ammonia Troponin T Total Protein Albumin HDL Cholesterol Urine Creatinine Crossmatch 11/28/16 11/28/16 11/29/16 16:02 21:30 05:50 WBC RBC Hgb Hct MCV MCH MCHC RDW Plt Count Lymph % (Auto) [place] % (Auto) Lymph # [place] # Seg Neutrophils % Seg Neuts % (Manual) Lymphocytes % (Manual) Monocytes % (Manual) Nucleated RBC % Seg Neutrophils # Seg Neutrophils # Man Lymphocytes # (Manual) Monocytes # (Manual) PT INR APTT Heparin Anti-Xa Level POC ABG pH POC ABG pCO2 POC ABG pO2 Sodium Potassium Chloride Carbon Dioxide BUN Creatinine Glucose POC Glucose 68 L 40 L Hemoglobin A1c 10.6 H Lactic Acid Calcium Total Bilirubin Alkaline Phosphatase Ammonia Troponin T Total Protein Albumin HDL Cholesterol Urine Creatinine Crossmatch 11/29/16 11/29/16 11/29/16 06:33 08:37 08:37 WBC RBC Hgb 10.2 L Hct 30.9 L MCV MCH MCHC RDW 16.0 H Plt Count 104 L Lymph % (Auto) 2.4 L [place] % (Auto) 8.5 H Lymph # 0.2 L [place] # 0.9 H Seg Neutrophils % 89.0 H Seg Neuts % (Manual) Lymphocytes % (Manual) Monocytes % (Manual) Nucleated RBC % Seg Neutrophils # 9.2 H Seg Neutrophils # Man Lymphocytes # (Manual) Monocytes # (Manual) PT INR APTT Heparin Anti-Xa Level POC ABG pH POC ABG pCO2 POC ABG pO2 Sodium Potassium Chloride Carbon Dioxide BUN 95 H Creatinine 2.9 H Glucose POC Glucose 57 L Hemoglobin A1c Lactic Acid Calcium Total Bilirubin Alkaline Phosphatase Ammonia Troponin T Total Protein Albumin HDL Cholesterol Urine Creatinine Crossmatch 11/29/16 11/29/16 11/29/16 11:41 12:48 15:44 WBC RBC Hgb Hct MCV MCH MCHC RDW Plt Count Lymph % (Auto) [place] % (Auto) Lymph # [place] # Seg Neutrophils % Seg Neuts % (Manual) Lymphocytes % (Manual) Monocytes % (Manual) Nucleated RBC % Seg Neutrophils # Seg Neutrophils # Man Lymphocytes # (Manual) Monocytes # (Manual) PT INR APTT Heparin Anti-Xa Level POC ABG pH POC ABG pCO2 POC ABG pO2 Sodium Potassium Chloride Carbon Dioxide BUN Creatinine Glucose POC Glucose 48 L 143 H 138 H Hemoglobin A1c Lactic Acid Calcium Total Bilirubin Alkaline Phosphatase Ammonia Troponin T Total Protein Albumin HDL Cholesterol Urine Creatinine Crossmatch 11/29/16 11/29/16 11/30/16 21:04 22:26 06:11 WBC RBC Hgb Hct MCV MCH MCHC RDW Plt Count Lymph % (Auto) [place] % (Auto) Lymph # [place] # Seg Neutrophils % Seg Neuts % (Manual) Lymphocytes % (Manual) Monocytes % (Manual) Nucleated RBC % Seg Neutrophils # Seg Neutrophils # Man Lymphocytes # (Manual) Monocytes # (Manual) PT INR APTT Heparin Anti-Xa Level POC ABG pH POC ABG pCO2 POC ABG pO2 Sodium Potassium Chloride Carbon Dioxide BUN Creatinine Glucose POC Glucose 49 L 165 H 121 H Hemoglobin A1c Lactic Acid Calcium Total Bilirubin Alkaline Phosphatase Ammonia Troponin T Total Protein Albumin HDL Cholesterol Urine Creatinine Crossmatch 11/30/16 11/30/16 11/30/16 08:53 08:53 10:00 WBC RBC Hgb 10.9 L Hct 33.2 L MCV MCH MCHC RDW 16.3 H Plt Count 96 L Lymph % (Auto) [place] % (Auto) Lymph # [place] # Seg Neutrophils % Seg Neuts % (Manual) 91.0 H Lymphocytes % (Manual) 2.0 L Monocytes % (Manual) Nucleated RBC % Seg Neutrophils # Seg Neutrophils # Man 9.3 H Lymphocytes # (Manual) 0.2 L Monocytes # (Manual) PT INR APTT Heparin Anti-Xa Level POC ABG pH POC ABG pCO2 POC ABG pO2 Sodium Potassium Chloride Carbon Dioxide BUN 78 H Creatinine 2.3 H Glucose 139 H POC Glucose Hemoglobin A1c Lactic Acid Calcium 8.3 L Total Bilirubin Alkaline Phosphatase Ammonia Troponin T Total Protein Albumin HDL Cholesterol Urine Creatinine 78.6 H Crossmatch 11/30/16 11/30/16 11/30/16 11:23 17:43 20:23 WBC RBC Hgb Hct MCV MCH MCHC RDW Plt Count Lymph % (Auto) [place] % (Auto) Lymph # [place] # Seg Neutrophils % Seg Neuts % (Manual) Lymphocytes % (Manual) Monocytes % (Manual) Nucleated RBC % Seg Neutrophils # Seg Neutrophils # Man Lymphocytes # (Manual) Monocytes # (Manual) PT INR APTT Heparin Anti-Xa Level POC ABG pH POC ABG pCO2 POC ABG pO2 Sodium Potassium Chloride Carbon Dioxide BUN Creatinine Glucose POC Glucose 169 H 57 L 69 L Hemoglobin A1c Lactic Acid Calcium Total Bilirubin Alkaline Phosphatase Ammonia Troponin T Total Protein Albumin HDL Cholesterol Urine Creatinine Crossmatch 11/30/16 11/30/16 12/01/16 20:37 22:12 05:30 WBC RBC Hgb Hct MCV MCH MCHC RDW Plt Count Lymph % (Auto) [place] % (Auto) Lymph # [place] # Seg Neutrophils % Seg Neuts % (Manual) Lymphocytes % (Manual) Monocytes % (Manual) Nucleated RBC % Seg Neutrophils # Seg Neutrophils # Man Lymphocytes # (Manual) Monocytes # (Manual) PT INR APTT Heparin Anti-Xa Level POC ABG pH POC ABG pCO2 POC ABG pO2 Sodium Potassium Chloride Carbon Dioxide BUN Creatinine Glucose POC Glucose 107 H 151 H Hemoglobin A1c Lactic Acid Calcium Total Bilirubin Alkaline Phosphatase Ammonia Troponin T 0.033 H Total Protein Albumin HDL Cholesterol 36 L Urine Creatinine Crossmatch 12/01/16 12/01/16 12/01/16 07:39 07:39 11:48 WBC 12.9 H RBC Hgb 10.9 L Hct 33.2 L MCV MCH MCHC RDW 16.6 H Plt Count 94 L Lymph % (Auto) [place] % (Auto) Lymph # [place] # Seg Neutrophils % Seg Neuts % (Manual) 98.0 H Lymphocytes % (Manual) 0 L Monocytes % (Manual) Nucleated RBC % Seg Neutrophils # Seg Neutrophils # Man 12.6 H Lymphocytes # (Manual) 0.0 L Monocytes # (Manual) PT INR APTT Heparin Anti-Xa Level POC ABG pH POC ABG pCO2 POC ABG pO2 Sodium Potassium Chloride Carbon Dioxide BUN 71 H Creatinine 2.1 H Glucose POC Glucose 193 H Hemoglobin A1c Lactic Acid Calcium 8.1 L Total Bilirubin Alkaline Phosphatase Ammonia Troponin T Total Protein Albumin HDL Cholesterol Urine Creatinine Crossmatch 12/01/16 12/01/16 12/02/16 17:02 21:17 06:05 WBC RBC Hgb Hct MCV MCH MCHC RDW Plt Count Lymph % (Auto) [place] % (Auto) Lymph # [place] # Seg Neutrophils % Seg Neuts % (Manual) Lymphocytes % (Manual) Monocytes % (Manual) Nucleated RBC % Seg Neutrophils # Seg Neutrophils # Man Lymphocytes # (Manual) Monocytes # (Manual) PT INR APTT Heparin Anti-Xa Level POC ABG pH POC ABG pCO2 POC ABG pO2 Sodium Potassium Chloride Carbon Dioxide BUN Creatinine Glucose POC Glucose 170 H 156 H < 40 L Hemoglobin A1c Lactic Acid Calcium Total Bilirubin Alkaline Phosphatase Ammonia Troponin T Total Protein Albumin HDL Cholesterol Urine Creatinine Crossmatch 12/02/16 12/02/16 12/02/16 06:34 06:41 07:48 WBC RBC Hgb 10.2 L Hct 31.4 L MCV MCH 27 L MCHC RDW 16.3 H Plt Count 89 L Lymph % (Auto) [place] % (Auto) Lymph # [place] # Seg Neutrophils % Seg Neuts % (Manual) 87.0 H Lymphocytes % (Manual) 7.0 L Monocytes % (Manual) Nucleated RBC % Seg Neutrophils # Seg Neutrophils # Man 8.9 H Lymphocytes # (Manual) 0.7 L Monocytes # (Manual) PT INR APTT Heparin Anti-Xa Level POC ABG pH POC ABG pCO2 POC ABG pO2 Sodium Potassium Chloride Carbon Dioxide BUN Creatinine Glucose POC Glucose 141 H 124 H Hemoglobin A1c Lactic Acid Calcium Total Bilirubin Alkaline Phosphatase Ammonia Troponin T Total Protein Albumin HDL Cholesterol Urine Creatinine Crossmatch 12/02/16 12/02/16 12/02/16 07:48 12:22 18:02 WBC RBC Hgb Hct MCV MCH MCHC RDW Plt Count Lymph % (Auto) [place] % (Auto) Lymph # [place] # Seg Neutrophils % Seg Neuts % (Manual) Lymphocytes % (Manual) Monocytes % (Manual) Nucleated RBC % Seg Neutrophils # Seg Neutrophils # Man Lymphocytes # (Manual) Monocytes # (Manual) PT INR APTT Heparin Anti-Xa Level POC ABG pH POC ABG pCO2 POC ABG pO2 Sodium 136 L Potassium Chloride Carbon Dioxide BUN 75 H Creatinine 2.7 H Glucose POC Glucose < 40 L 53 L Hemoglobin A1c Lactic Acid Calcium 7.9 L Total Bilirubin Alkaline Phosphatase Ammonia Troponin T Total Protein Albumin HDL Cholesterol Urine Creatinine Crossmatch 12/02/16 12/02/16 12/02/16 19:20 19:23 19:23 WBC 13.8 H RBC Hgb 10.9 L Hct 34.6 L MCV MCH 27 L MCHC 31 L RDW 16.2 H Plt Count 106 L Lymph % (Auto) [place] % (Auto) Lymph # [place] # Seg Neutrophils % Seg Neuts % (Manual) 86.0 H Lymphocytes % (Manual) 4.0 L Monocytes % (Manual) Nucleated RBC % Seg Neutrophils # Seg Neutrophils # Man 11.9 H Lymphocytes # (Manual) 0.6 L Monocytes # (Manual) 1.0 H PT 16.6 H INR 1.27 H APTT 45.4 H Heparin Anti-Xa Level POC ABG pH POC ABG pCO2 POC ABG pO2 Sodium Potassium Chloride 95.8 L Carbon Dioxide BUN 75 H Creatinine 2.8 H Glucose 105 H POC Glucose Hemoglobin A1c Lactic Acid Calcium 7.8 L Total Bilirubin 2.70 H Alkaline Phosphatase Ammonia Troponin T Total Protein 6.0 L Albumin 2.7 L HDL Cholesterol Urine Creatinine Crossmatch 12/02/16 12/02/16 12/03/16 19:39 21:14 01:15 WBC RBC Hgb Hct MCV MCH MCHC RDW Plt Count Lymph % (Auto) [place] % (Auto) Lymph # [place] # Seg Neutrophils % Seg Neuts % (Manual) Lymphocytes % (Manual) Monocytes % (Manual) Nucleated RBC % Seg Neutrophils # Seg Neutrophils # Man Lymphocytes # (Manual) Monocytes # (Manual) PT INR APTT Heparin Anti-Xa Level < 0.10 L POC ABG pH 7.214 L POC ABG pCO2 54.0 H POC ABG pO2 227 H Sodium Potassium Chloride Carbon Dioxide BUN Creatinine Glucose POC Glucose 141 H Hemoglobin A1c Lactic Acid Calcium Total Bilirubin Alkaline Phosphatase Ammonia Troponin T Total Protein Albumin HDL Cholesterol Urine Creatinine Crossmatch 12/03/16 12/03/16 12/03/16 04:15 05:15 06:04 WBC 45.9 H* RBC Hgb 10.5 L Hct 32.9 L MCV MCH 27 L MCHC RDW 16.6 H Plt Count 101 L Lymph % (Auto) [place] % (Auto) Lymph # [place] # Seg Neutrophils % Seg Neuts % (Manual) Lymphocytes % (Manual) 8.0 L Monocytes % (Manual) 8.0 H Nucleated RBC % Seg Neutrophils # Seg Neutrophils # Man 31.2 H Lymphocytes # (Manual) Monocytes # (Manual) 3.7 H PT INR APTT Heparin Anti-Xa Level POC ABG pH POC ABG pCO2 POC ABG pO2 72 L Sodium Potassium Chloride Carbon Dioxide BUN Creatinine Glucose POC Glucose 50 L Hemoglobin A1c Lactic Acid Calcium Total Bilirubin Alkaline Phosphatase Ammonia Troponin T Total Protein Albumin HDL Cholesterol Urine Creatinine Crossmatch 12/03/16 12/03/16 12/03/16 06:04 06:51 08:01 WBC RBC Hgb Hct MCV MCH MCHC RDW Plt Count Lymph % (Auto) [place] % (Auto) Lymph # [place] # Seg Neutrophils % Seg Neuts % (Manual) Lymphocytes % (Manual) Monocytes % (Manual) Nucleated RBC % Seg Neutrophils # Seg Neutrophils # Man Lymphocytes # (Manual) Monocytes # (Manual) PT INR APTT Heparin Anti-Xa Level POC ABG pH POC ABG pCO2 POC ABG pO2 Sodium 128 L D Potassium 6.8 H* D Chloride 94.2 L Carbon Dioxide 17 L BUN 77 H Creatinine 2.6 H Glucose POC Glucose 118 H Hemoglobin A1c Lactic Acid Calcium 7.6 L Total Bilirubin Alkaline Phosphatase Ammonia Troponin T 0.098 H Total Protein Albumin HDL Cholesterol Urine Creatinine Crossmatch 12/03/16 12/03/16 12/03/16 08:13 09:44 12:19 WBC RBC Hgb Hct MCV MCH MCHC RDW Plt Count Lymph % (Auto) [place] % (Auto) Lymph # [place] # Seg Neutrophils % Seg Neuts % (Manual) Lymphocytes % (Manual) Monocytes % (Manual) Nucleated RBC % Seg Neutrophils # Seg Neutrophils # Man Lymphocytes # (Manual) Monocytes # (Manual) PT INR APTT Heparin Anti-Xa Level POC ABG pH POC ABG pCO2 POC ABG pO2 Sodium Potassium Chloride Carbon Dioxide BUN Creatinine Glucose POC Glucose 107 H 115 H Hemoglobin A1c Lactic Acid 3.40 H* Calcium Total Bilirubin Alkaline Phosphatase Ammonia Troponin T Total Protein Albumin HDL Cholesterol Urine Creatinine Crossmatch 12/03/16 12/03/16 12/03/16 16:39 17:49 20:15 WBC 18.9 H RBC 3.04 L Hgb 8.4 L Hct 26.2 L MCV MCH MCHC RDW 16.6 H Plt Count 81 L Lymph % (Auto) [place] % (Auto) Lymph # [place] # Seg Neutrophils % Seg Neuts % (Manual) 94.0 H Lymphocytes % (Manual) 1.0 L Monocytes % (Manual) Nucleated RBC % Seg Neutrophils # Seg Neutrophils # Man 17.8 H Lymphocytes # (Manual) 0.2 L Monocytes # (Manual) PT INR APTT Heparin Anti-Xa Level POC ABG pH POC ABG pCO2 POC ABG pO2 Sodium Potassium Chloride Carbon Dioxide BUN Creatinine Glucose POC Glucose 151 H Hemoglobin A1c Lactic Acid 3.10 H* Calcium Total Bilirubin Alkaline Phosphatase Ammonia Troponin T Total Protein Albumin HDL Cholesterol Urine Creatinine Crossmatch 12/03/16 12/03/16 12/03/16 23:34 Unknown Unknown WBC 22.2 H RBC 3.16 L Hgb 8.6 L Hct 27.3 L MCV MCH 27 L MCHC 31 L RDW 16.9 H Plt Count 81 L Lymph % (Auto) [place] % (Auto) Lymph # [place] # Seg Neutrophils % Seg Neuts % (Manual) Lymphocytes % (Manual) Monocytes % (Manual) Nucleated RBC % Seg Neutrophils # Seg Neutrophils # Man Lymphocytes # (Manual) Monocytes # (Manual) PT INR APTT Heparin Anti-Xa Level POC ABG pH POC ABG pCO2 POC ABG pO2 Sodium 132 L Potassium Chloride 95.8 L Carbon Dioxide 19 L BUN 93 H Creatinine 3.4 H Glucose 130 H POC Glucose 188 H Hemoglobin A1c Lactic Acid Calcium 7.4 L Total Bilirubin Alkaline Phosphatase Ammonia Troponin T Total Protein Albumin HDL Cholesterol Urine Creatinine Crossmatch 12/04/16 12/04/16 12/04/16 04:57 05:45 06:00 WBC 17.8 H RBC 3.07 L Hgb 8.7 L Hct 26.1 L MCV MCH MCHC RDW 16.5 H Plt Count 93 L Lymph % (Auto) [place] % (Auto) Lymph # [place] # Seg Neutrophils % Seg Neuts % (Manual) 80.0 H Lymphocytes % (Manual) 7.0 L Monocytes % (Manual) Nucleated RBC % Seg Neutrophils # Seg Neutrophils # Man 14.2 H Lymphocytes # (Manual) Monocytes # (Manual) 1.1 H PT INR APTT Heparin Anti-Xa Level POC ABG pH 7.277 L POC ABG pCO2 POC ABG pO2 198 H Sodium Potassium Chloride Carbon Dioxide BUN Creatinine Glucose POC Glucose 186 H Hemoglobin A1c Lactic Acid Calcium Total Bilirubin Alkaline Phosphatase Ammonia Troponin T Total Protein Albumin HDL Cholesterol Urine Creatinine Crossmatch 12/04/16 12/04/16 12/04/16 06:00 07:23 11:50 WBC RBC Hgb Hct MCV MCH MCHC RDW Plt Count Lymph % (Auto) [place] % (Auto) Lymph # [place] # Seg Neutrophils % Seg Neuts % (Manual) Lymphocytes % (Manual) Monocytes % (Manual) Nucleated RBC % Seg Neutrophils # Seg Neutrophils # Man Lymphocytes # (Manual) Monocytes # (Manual) PT INR APTT Heparin Anti-Xa Level POC ABG pH POC ABG pCO2 POC ABG pO2 Sodium 133 L Potassium Chloride 96.0 L Carbon Dioxide 18 L BUN 103 H Creatinine 3.6 H Glucose 190 H POC Glucose 187 H 190 H Hemoglobin A1c Lactic Acid Calcium 7.7 L Total Bilirubin Alkaline Phosphatase Ammonia Troponin T Total Protein Albumin HDL Cholesterol Urine Creatinine Crossmatch 12/04/16 12/04/16 12/04/16 13:22 17:46 23:33 WBC RBC Hgb Hct MCV MCH MCHC RDW Plt Count Lymph % (Auto) [place] % (Auto) Lymph # [place] # Seg Neutrophils % Seg Neuts % (Manual) Lymphocytes % (Manual) Monocytes % (Manual) Nucleated RBC % Seg Neutrophils # Seg Neutrophils # Man Lymphocytes # (Manual) Monocytes # (Manual) PT INR APTT Heparin Anti-Xa Level POC ABG pH POC ABG pCO2 POC ABG pO2 Sodium Potassium Chloride Carbon Dioxide BUN Creatinine Glucose POC Glucose 264 H 263 H Hemoglobin A1c Lactic Acid 2.60 H* Calcium Total Bilirubin Alkaline Phosphatase Ammonia Troponin T Total Protein Albumin HDL Cholesterol Urine Creatinine Crossmatch 12/05/16 12/05/16 12/05/16 05:00 05:00 05:17 WBC 17.1 H RBC 3.03 L Hgb 8.2 L Hct 25.9 L MCV MCH 27 L MCHC RDW 16.4 H Plt Count 81 L Lymph % (Auto) 1.3 L [place] % (Auto) 9.7 H Lymph # 0.2 L [place] # 1.7 H Seg Neutrophils % 88.9 H Seg Neuts % (Manual) Lymphocytes % (Manual) Monocytes % (Manual) Nucleated RBC % Seg Neutrophils # 15.2 H Seg Neutrophils # Man Lymphocytes # (Manual) Monocytes # (Manual) PT INR APTT Heparin Anti-Xa Level POC ABG pH POC ABG pCO2 POC ABG pO2 Sodium 132 L Potassium Chloride 96.9 L Carbon Dioxide 19 L BUN 120 H Creatinine 4.8 H Glucose 193 H POC Glucose 229 H Hemoglobin A1c Lactic Acid Calcium 8.0 L Total Bilirubin Alkaline Phosphatase Ammonia Troponin T Total Protein Albumin HDL Cholesterol Urine Creatinine Crossmatch 12/05/16 12/05/16 12/05/16 06:00 11:46 17:53 WBC RBC Hgb Hct MCV MCH MCHC RDW Plt Count Lymph % (Auto) [place] % (Auto) Lymph # [place] # Seg Neutrophils % Seg Neuts % (Manual) Lymphocytes % (Manual) Monocytes % (Manual) Nucleated RBC % Seg Neutrophils # Seg Neutrophils # Man Lymphocytes # (Manual) Monocytes # (Manual) PT INR APTT Heparin Anti-Xa Level POC ABG pH POC ABG pCO2 32.5 L POC ABG pO2 124 H Sodium Potassium Chloride Carbon Dioxide BUN Creatinine Glucose POC Glucose 139 H 170 H Hemoglobin A1c Lactic Acid Calcium Total Bilirubin Alkaline Phosphatase Ammonia Troponin T Total Protein Albumin HDL Cholesterol Urine Creatinine Crossmatch 12/05/16 12/06/16 12/06/16 23:24 04:20 05:57 WBC RBC Hgb Hct MCV MCH MCHC RDW Plt Count Lymph % (Auto) [place] % (Auto) Lymph # [place] # Seg Neutrophils % Seg Neuts % (Manual) Lymphocytes % (Manual) Monocytes % (Manual) Nucleated RBC % Seg Neutrophils # Seg Neutrophils # Man Lymphocytes # (Manual) Monocytes # (Manual) PT INR APTT Heparin Anti-Xa Level POC ABG pH POC ABG pCO2 30.3 L POC ABG pO2 122 H Sodium Potassium Chloride Carbon Dioxide BUN Creatinine Glucose POC Glucose 153 H 166 H Hemoglobin A1c Lactic Acid Calcium Total Bilirubin Alkaline Phosphatase Ammonia Troponin T Total Protein Albumin HDL Cholesterol Urine Creatinine Crossmatch 12/06/16 12/06/16 12/06/16 06:00 06:00 11:32 WBC 18.1 H RBC 2.76 L Hgb 7.7 L Hct 23.4 L MCV MCH MCHC RDW 16.6 H Plt Count 62 L Lymph % (Auto) [place] % (Auto) Lymph # [place] # Seg Neutrophils % Seg Neuts % (Manual) 96.0 H Lymphocytes % (Manual) 0 L Monocytes % (Manual) Nucleated RBC % Seg Neutrophils # Seg Neutrophils # Man 17.4 H Lymphocytes # (Manual) 0.0 L Monocytes # (Manual) PT INR APTT Heparin Anti-Xa Level POC ABG pH POC ABG pCO2 POC ABG pO2 Sodium 134 L Potassium Chloride 96.8 L Carbon Dioxide 19 L BUN 117 H Creatinine 4.9 H Glucose 179 H POC Glucose 300 H Hemoglobin A1c Lactic Acid Calcium 8.0 L Total Bilirubin Alkaline Phosphatase Ammonia Troponin T Total Protein Albumin HDL Cholesterol Urine Creatinine Crossmatch 12/06/16 12/06/16 12/06/16 11:33 18:11 23:23 WBC RBC Hgb Hct MCV MCH MCHC RDW Plt Count Lymph % (Auto) [place] % (Auto) Lymph # [place] # Seg Neutrophils % Seg Neuts % (Manual) Lymphocytes % (Manual) Monocytes % (Manual) Nucleated RBC % Seg Neutrophils # Seg Neutrophils # Man Lymphocytes # (Manual) Monocytes # (Manual) PT INR APTT Heparin Anti-Xa Level POC ABG pH POC ABG pCO2 POC ABG pO2 Sodium Potassium Chloride Carbon Dioxide BUN Creatinine Glucose POC Glucose 204 H 246 H 225 H Hemoglobin A1c Lactic Acid Calcium Total Bilirubin Alkaline Phosphatase Ammonia Troponin T Total Protein Albumin HDL Cholesterol Urine Creatinine Crossmatch 12/07/16 12/07/16 12/07/16 04:50 05:19 05:40 WBC 15.6 H RBC 2.71 L Hgb 7.4 L Hct 22.6 L MCV 83 L MCH 27 L MCHC RDW 16.2 H Plt Count 61 L Lymph % (Auto) [place] % (Auto) Lymph # [place] # Seg Neutrophils % Seg Neuts % (Manual) 97.0 H Lymphocytes % (Manual) 0 L Monocytes % (Manual) Nucleated RBC % Seg Neutrophils # Seg Neutrophils # Man 15.1 H Lymphocytes # (Manual) 0.0 L Monocytes # (Manual) PT INR APTT Heparin Anti-Xa Level POC ABG pH POC ABG pCO2 31.3 L POC ABG pO2 Sodium Potassium Chloride Carbon Dioxide BUN Creatinine Glucose POC Glucose 238 H Hemoglobin A1c Lactic Acid Calcium Total Bilirubin Alkaline Phosphatase Ammonia Troponin T Total Protein Albumin HDL Cholesterol Urine Creatinine Crossmatch 12/07/16 12/07/16 12/07/16 05:40 11:43 16:09 WBC RBC Hgb Hct MCV MCH MCHC RDW Plt Count Lymph % (Auto) [place] % (Auto) Lymph # [place] # Seg Neutrophils % Seg Neuts % (Manual) Lymphocytes % (Manual) Monocytes % (Manual) Nucleated RBC % Seg Neutrophils # Seg Neutrophils # Man Lymphocytes # (Manual) Monocytes # (Manual) PT INR APTT Heparin Anti-Xa Level POC ABG pH POC ABG pCO2 POC ABG pO2 Sodium 136 L Potassium Chloride Carbon Dioxide 19 L BUN 122 H Creatinine 5.1 H Glucose 226 H POC Glucose 312 H Hemoglobin A1c Lactic Acid Calcium 7.9 L Total Bilirubin Alkaline Phosphatase Ammonia Troponin T Total Protein Albumin HDL Cholesterol Urine Creatinine Crossmatch See Detail 12/07/16 12/07/16 12/07/16 16:09 17:27 17:31 WBC RBC Hgb 7.0 L Hct 21.0 L MCV MCH MCHC RDW Plt Count Lymph % (Auto) [place] % (Auto) Lymph # [place] # Seg Neutrophils % Seg Neuts % (Manual) Lymphocytes % (Manual) Monocytes % (Manual) Nucleated RBC % Seg Neutrophils # Seg Neutrophils # Man Lymphocytes # (Manual) Monocytes # (Manual) PT INR APTT Heparin Anti-Xa Level POC ABG pH POC ABG pCO2 POC ABG pO2 Sodium Potassium Chloride Carbon Dioxide BUN Creatinine Glucose POC Glucose 312 H 242 H Hemoglobin A1c Lactic Acid Calcium Total Bilirubin Alkaline Phosphatase Ammonia Troponin T Total Protein Albumin HDL Cholesterol Urine Creatinine Crossmatch 12/07/16 12/08/16 12/08/16 23:52 04:00 04:00 WBC 13.2 H RBC 2.50 L Hgb 7.0 L Hct 21.1 L MCV MCH MCHC RDW 16.8 H Plt Count 44 L Lymph % (Auto) 1.5 L [place] % (Auto) 9.1 H Lymph # 0.2 L [place] # 1.2 H Seg Neutrophils % 88.6 H Seg Neuts % (Manual) Lymphocytes % (Manual) Monocytes % (Manual) Nucleated RBC % Seg Neutrophils # 11.7 H Seg Neutrophils # Man Lymphocytes # (Manual) Monocytes # (Manual) PT INR APTT Heparin Anti-Xa Level POC ABG pH POC ABG pCO2 POC ABG pO2 Sodium Potassium Chloride Carbon Dioxide 21 L BUN 127 H Creatinine 5.0 H Glucose 148 H POC Glucose 173 H Hemoglobin A1c Lactic Acid Calcium 8.2 L Total Bilirubin 2.00 H Alkaline Phosphatase 132 H Ammonia Troponin T Total Protein 5.6 L Albumin 2.6 L HDL Cholesterol Urine Creatinine Crossmatch 12/08/16 12/08/16 12/08/16 05:34 09:20 11:50 WBC RBC Hgb 6.9 L Hct 21.4 L MCV MCH MCHC RDW Plt Count Lymph % (Auto) [place] % (Auto) Lymph # [place] # Seg Neutrophils % Seg Neuts % (Manual) Lymphocytes % (Manual) Monocytes % (Manual) Nucleated RBC % Seg Neutrophils # Seg Neutrophils # Man Lymphocytes # (Manual) Monocytes # (Manual) PT INR APTT Heparin Anti-Xa Level POC ABG pH POC ABG pCO2 POC ABG pO2 Sodium Potassium Chloride Carbon Dioxide BUN Creatinine Glucose POC Glucose 134 H Hemoglobin A1c Lactic Acid Calcium Total Bilirubin Alkaline Phosphatase Ammonia 90.0 H Troponin T Total Protein Albumin HDL Cholesterol Urine Creatinine Crossmatch 12/08/16 12/08/16 12/08/16 15:40 17:35 18:20 WBC RBC Hgb 9.2 L Hct 28.1 L D MCV MCH MCHC RDW Plt Count Lymph % (Auto) [place] % (Auto) Lymph # [place] # Seg Neutrophils % Seg Neuts % (Manual) Lymphocytes % (Manual) Monocytes % (Manual) Nucleated RBC % Seg Neutrophils # Seg Neutrophils # Man Lymphocytes # (Manual) Monocytes # (Manual) PT INR APTT Heparin Anti-Xa Level POC ABG pH POC ABG pCO2 POC ABG pO2 Sodium Potassium Chloride Carbon Dioxide BUN Creatinine Glucose POC Glucose 111 H 146 H Hemoglobin A1c Lactic Acid Calcium Total Bilirubin Alkaline Phosphatase Ammonia Troponin T Total Protein Albumin HDL Cholesterol Urine Creatinine Crossmatch 12/09/16 12/09/16 12/09/16 00:10 04:13 05:50 WBC 17.6 H RBC 3.48 L Hgb 9.5 L Hct 29.2 L MCV MCH 27 L MCHC RDW 15.8 H Plt Count 75 L Lymph % (Auto) [place] % (Auto) Lymph # [place] # Seg Neutrophils % Seg Neuts % (Manual) 94.0 H Lymphocytes % (Manual) 2.0 L Monocytes % (Manual) Nucleated RBC % Seg Neutrophils # Seg Neutrophils # Man 16.5 H Lymphocytes # (Manual) 0.4 L Monocytes # (Manual) PT INR APTT Heparin Anti-Xa Level POC ABG pH POC ABG pCO2 POC ABG pO2 107 H Sodium Potassium Chloride Carbon Dioxide BUN Creatinine Glucose POC Glucose 64 L Hemoglobin A1c Lactic Acid Calcium Total Bilirubin Alkaline Phosphatase Ammonia Troponin T Total Protein Albumin HDL Cholesterol Urine Creatinine Crossmatch 12/09/16 12/09/16 12/09/16 05:50 12:16 12:56 WBC RBC Hgb Hct MCV MCH MCHC RDW Plt Count Lymph % (Auto) [place] % (Auto) Lymph # [place] # Seg Neutrophils % Seg Neuts % (Manual) Lymphocytes % (Manual) Monocytes % (Manual) Nucleated RBC % Seg Neutrophils # Seg Neutrophils # Man Lymphocytes # (Manual) Monocytes # (Manual) PT INR APTT Heparin Anti-Xa Level POC ABG pH POC ABG pCO2 34.1 L POC ABG pO2 79 L Sodium Potassium Chloride Carbon Dioxide BUN 92 H Creatinine 3.9 H Glucose 70 L POC Glucose 113 H Hemoglobin A1c Lactic Acid Calcium Total Bilirubin Alkaline Phosphatase Ammonia Troponin T Total Protein Albumin HDL Cholesterol Urine Creatinine Crossmatch 12/09/16 12/09/16 12/10/16 17:52 23:33 05:07 WBC RBC Hgb Hct MCV MCH MCHC RDW Plt Count Lymph % (Auto) [place] % (Auto) Lymph # [place] # Seg Neutrophils % Seg Neuts % (Manual) Lymphocytes % (Manual) Monocytes % (Manual) Nucleated RBC % Seg Neutrophils # Seg Neutrophils # Man Lymphocytes # (Manual) Monocytes # (Manual) PT INR APTT Heparin Anti-Xa Level POC ABG pH POC ABG pCO2 POC ABG pO2 Sodium Potassium Chloride Carbon Dioxide BUN Creatinine Glucose POC Glucose 146 H 150 H 142 H Hemoglobin A1c Lactic Acid Calcium Total Bilirubin Alkaline Phosphatase Ammonia Troponin T Total Protein Albumin HDL Cholesterol Urine Creatinine Crossmatch 12/10/16 12/10/16 12/10/16 06:15 08:30 09:45 WBC RBC Hgb 8.7 L Hct 27.0 L MCV MCH MCHC RDW Plt Count 71 L Lymph % (Auto) [place] % (Auto) Lymph # [place] # Seg Neutrophils % Seg Neuts % (Manual) Lymphocytes % (Manual) Monocytes % (Manual) Nucleated RBC % Seg Neutrophils # Seg Neutrophils # Man Lymphocytes # (Manual) Monocytes # (Manual) PT INR APTT Heparin Anti-Xa Level POC ABG pH 7.508 H 7.558 H POC ABG pCO2 32.8 L 29.1 L POC ABG pO2 72 L Sodium Potassium Chloride Carbon Dioxide BUN Creatinine Glucose POC Glucose Hemoglobin A1c Lactic Acid Calcium Total Bilirubin Alkaline Phosphatase Ammonia Troponin T Total Protein Albumin HDL Cholesterol Urine Creatinine Crossmatch 12/10/16 12/10/16 12/10/16 12:06 18:25 23:44 WBC RBC Hgb Hct MCV MCH MCHC RDW Plt Count Lymph % (Auto) [place] % (Auto) Lymph # [place] # Seg Neutrophils % Seg Neuts % (Manual) Lymphocytes % (Manual) Monocytes % (Manual) Nucleated RBC % Seg Neutrophils # Seg Neutrophils # Man Lymphocytes # (Manual) Monocytes # (Manual) PT INR APTT Heparin Anti-Xa Level POC ABG pH POC ABG pCO2 POC ABG pO2 Sodium Potassium Chloride Carbon Dioxide BUN Creatinine Glucose POC Glucose 264 H 126 H 195 H Hemoglobin A1c Lactic Acid Calcium Total Bilirubin Alkaline Phosphatase Ammonia Troponin T Total Protein Albumin HDL Cholesterol Urine Creatinine Crossmatch 12/11/16 12/11/16 12/11/16 05:36 09:05 11:49 WBC RBC Hgb Hct MCV MCH MCHC RDW Plt Count Lymph % (Auto) [place] % (Auto) Lymph # [place] # Seg Neutrophils % Seg Neuts % (Manual) Lymphocytes % (Manual) Monocytes % (Manual) Nucleated RBC % Seg Neutrophils # Seg Neutrophils # Man Lymphocytes # (Manual) Monocytes # (Manual) PT INR APTT Heparin Anti-Xa Level POC ABG pH 7.517 H POC ABG pCO2 32.2 L POC ABG pO2 Sodium Potassium Chloride Carbon Dioxide BUN Creatinine Glucose POC Glucose 196 H 187 H Hemoglobin A1c Lactic Acid Calcium Total Bilirubin Alkaline Phosphatase Ammonia Troponin T Total Protein Albumin HDL Cholesterol Urine Creatinine Crossmatch 12/11/16 12/12/16 12/12/16 18:02 00:01 05:23 WBC RBC Hgb Hct MCV MCH MCHC RDW Plt Count Lymph % (Auto) [place] % (Auto) Lymph # [place] # Seg Neutrophils % Seg Neuts % (Manual) Lymphocytes % (Manual) Monocytes % (Manual) Nucleated RBC % Seg Neutrophils # Seg Neutrophils # Man Lymphocytes # (Manual) Monocytes # (Manual) PT INR APTT Heparin Anti-Xa Level POC ABG pH POC ABG pCO2 POC ABG pO2 Sodium Potassium Chloride Carbon Dioxide BUN Creatinine Glucose POC Glucose 257 H 203 H 274 H Hemoglobin A1c Lactic Acid Calcium Total Bilirubin Alkaline Phosphatase Ammonia Troponin T Total Protein Albumin HDL Cholesterol Urine Creatinine Crossmatch 12/12/16 12/12/16 12/12/16 06:30 06:30 12:03 WBC 11.3 H RBC 3.30 L Hgb 9.0 L Hct 28.2 L MCV MCH 27 L MCHC RDW 16.8 H Plt Count 88 L Lymph % (Auto) [place] % (Auto) Lymph # [place] # Seg Neutrophils % Seg Neuts % (Manual) 99.0 H Lymphocytes % (Manual) 0 L Monocytes % (Manual) Nucleated RBC % 1.0 H Seg Neutrophils # Seg Neutrophils # Man 11.2 H Lymphocytes # (Manual) 0.0 L Monocytes # (Manual) PT INR APTT Heparin Anti-Xa Level POC ABG pH POC ABG pCO2 POC ABG pO2 Sodium 136 L Potassium Chloride 97.1 L Carbon Dioxide BUN 70 H Creatinine 3.4 H Glucose 256 H POC Glucose 190 H Hemoglobin A1c Lactic Acid Calcium 8.0 L Total Bilirubin Alkaline Phosphatase Ammonia Troponin T Total Protein Albumin HDL Cholesterol Urine Creatinine Crossmatch 12/12/16 12/13/16 12/13/16 16:00 00:02 04:30 WBC RBC Hgb 8.4 L Hct 25.8 L MCV MCH MCHC RDW Plt Count Lymph % (Auto) [place] % (Auto) Lymph # [place] # Seg Neutrophils % Seg Neuts % (Manual) Lymphocytes % (Manual) Monocytes % (Manual) Nucleated RBC % Seg Neutrophils # Seg Neutrophils # Man Lymphocytes # (Manual) Monocytes # (Manual) PT INR APTT Heparin Anti-Xa Level POC ABG pH POC ABG pCO2 POC ABG pO2 Sodium Potassium Chloride Carbon Dioxide BUN Creatinine Glucose POC Glucose 235 H 113 H Hemoglobin A1c Lactic Acid Calcium Total Bilirubin Alkaline Phosphatase Ammonia Troponin T Total Protein Albumin HDL Cholesterol Urine Creatinine Crossmatch 12/13/16 04:30 WBC RBC Hgb Hct MCV MCH MCHC RDW Plt Count Lymph % (Auto) [place] % (Auto) Lymph # [place] # Seg Neutrophils % Seg Neuts % (Manual) Lymphocytes % (Manual) Monocytes % (Manual) Nucleated RBC % Seg Neutrophils # Seg Neutrophils # Man Lymphocytes # (Manual) Monocytes # (Manual) PT INR APTT Heparin Anti-Xa Level POC ABG pH POC ABG pCO2 POC ABG pO2 Sodium Potassium Chloride Carbon Dioxide BUN 53 H Creatinine 2.9 H Glucose POC Glucose Hemoglobin A1c Lactic Acid Calcium 7.7 L Total Bilirubin Alkaline Phosphatase Ammonia Troponin T Total Protein Albumin HDL Cholesterol Urine Creatinine Crossmatch
[2016-12-13] MEDS: TRIPLE ANTIBIOTIC TP SCH (10:26)
[2016-12-13] MEDS: PROTONIX FEEDTUBE SCH ×2 (10:26→22:45)
[2016-12-13] MEDS: COREG PO SCH ×2 (10:26→22:45)
[2016-12-13] MEDS: DAKIN'S HALF STRENGTH TP SCH ×2 (10:28→22:50)
[2016-12-13] MEDS: LEVEMIR SUB-Q SCH (11:42)
--- NOTE | 2016-12-13 11:50 | Progress Note ---
Assessment and Plan Acute respiratory failure-->extubated 12/11 Status post cardiac arrest Acute on chronic systolic heart failure dialysis per nephrology continue coreg 3.125mg daily Ccrdiomyopathy s/p AICD Coronary artery disease disease Peripheral vascular disease with left leg ulcer Hypertension Hyperlipidemia Diabetes End-stage renal disease on hemodialysis Anemia secondary to GI bleed No significant change in the current cardiac status continue current management. Prognosis remains guarded Subjective Date of service: 12/13/16 Principal diagnosis: bilateral leg wounds; TREMAINE Interval history: Patient is on ventilator. Patient is noncommunicative Objective Vital Signs Temp Pulse Pulse Pulse Pulse Resp Resp 12/13/16 10:26 94 H 12/13/16 10:00 82 21 12/13/16 09:00 84 20 12/13/16 08:10 91 H 18 12/13/16 08:08 91 H 24 12/13/16 08:00 97.3 F L 93 H 18 12/13/16 07:55 77 12/13/16 07:00 89 17 12/13/16 06:00 89 17 12/13/16 05:36 16 12/13/16 05:00 90 27 H 12/13/16 04:36 15 12/13/16 04:00 92 H 92 H 22 12/13/16 03:45 98 F 12/13/16 03:00 88 16 12/13/16 02:00 89 24 12/13/16 01:00 89 24 12/13/16 00:25 98.4 F 12/13/16 00:00 90 90 22 12/12/16 23:01 86 22 12/12/16 22:21 20 12/12/16 22:01 78 21 12/12/16 21:21 20 12/12/16 21:20 96 H 12/12/16 21:15 12/12/16 21:03 97 H 26 H 12/12/16 21:01 98 H 24 12/12/16 20:02 97.5 F L 12/12/16 20:00 90 90 17 12/12/16 19:35 12/12/16 19:34 100 H 12/12/16 19:01 91 H 26 H 12/12/16 18:00 91 H 39 H 12/12/16 17:01 95 H 22 12/12/16 16:01 93 H 22 12/12/16 16:00 12/12/16 15:38 97.1 F L 12/12/16 15:25 94 H 12/12/16 15:14 100 H 12/12/16 15:03 105 H 12/12/16 15:01 99 H 27 H 12/12/16 14:01 110 H 25 H 12/12/16 13:50 97.7 F 112 H 20 12/12/16 13:45 90 12/12/16 13:26 112 H 12/12/16 13:08 114 H 12/12/16 13:01 107 H 19 12/12/16 12:55 98 H 12/12/16 12:42 96 H 12/12/16 12:25 105 H 12/12/16 12:15 98.1 F 99 H 12/12/16 12:01 101 H 22 12/12/16 12:00 110 H 102 H 25 H Resp Resp BP Pulse Ox 12/13/16 10:26 124/61 12/13/16 10:00 118/58 100 12/13/16 09:00 132/66 99 12/13/16 08:10 100 12/13/16 08:08 12/13/16 08:00 115/76 100 12/13/16 07:55 24 100 12/13/16 07:00 109/58 97 12/13/16 06:00 108/63 100 12/13/16 05:36 12/13/16 05:00 117/72 100 12/13/16 04:36 12/13/16 04:00 135/73 99 12/13/16 03:45 12/13/16 03:00 121/70 99 12/13/16 02:00 100 12/13/16 01:00 107/56 100 12/13/16 00:25 12/13/16 00:00 102/46 97 12/12/16 23:01 112/46 100 12/12/16 22:21 12/12/16 22:01 121/47 100 12/12/16 21:21 12/12/16 21:20 121/51 12/12/16 21:15 20 12/12/16 21:03 121/51 100 12/12/16 21:01 121/51 100 12/12/16 20:02 12/12/16 20:00 140/68 99 12/12/16 19:35 100 12/12/16 19:34 20 12/12/16 19:01 150/57 99 12/12/16 18:00 129/63 99 12/12/16 17:01 140/51 99 12/12/16 16:01 154/73 99 12/12/16 16:00 100 12/12/16 15:38 12/12/16 15:25 22 12/12/16 15:14 24 12/12/16 15:03 124/64 12/12/16 15:01 125/94 99 12/12/16 14:01 101/50 100 12/12/16 13:50 118/57 12/12/16 13:45 118/54 12/12/16 13:26 123/55 12/12/16 13:08 114/58 12/12/16 13:01 114/58 100 12/12/16 12:55 135/60 12/12/16 12:42 139/55 12/12/16 12:25 125/65 12/12/16 12:15 116/65 12/12/16 12:01 163/55 100 12/12/16 12:00 163/55 100 - Physical Examination General: No Apparent Distress (lethargic but arousable. Patient is intubated on a ventilator ), Other HEENT: Positive: Normocephaly, Mucus Membranes Moist Neck: Positive: neck supple, trachea midline Cardiac: Positive: irregularly irregular Lungs: Positive: Decreased Breath Sounds ( basis) Neuro: Positive: Other (lethargic but arousable) Abdomen: Positive: Soft, Active Bowel Sounds Skin: Positive: Clear, Other (Multiple ulcers in the legs - Dressing in situ.). Negative: Rash Musculoskeletal: other (Dressing in situ (multiple ulcers in the legs).) Extremities: Absent: lower extr. pulses, edema (bilateral LE dressings intact) - Labs and Meds CBC 12/13/16 Range/Units 04:30 Hgb 8.4 L (11.8-15.2) gm/dl Hct 25.8 L (35.5-45.6) % Comprehensive Metabolic Panel 12/13/16 Range/Units 04:30 Sodium 138 (137-145) mmol/L Potassium 4.2 (3.6-5.0) mmol/L Chloride 99.5 (98-107) mmol/L Carbon Dioxide 28 (22-30) mmol/L BUN 53 H (9-20) mg/dL Creatinine 2.9 H (0.8-1.5) mg/dL Glucose 85 (75-100) mg/dL Calcium 7.7 L (8.4-10.2) mg/dL - Imaging and Cardiology EKG: report reviewed, image reviewed (12/03/2016 severe LV dysfunction by ventricle dysfunction EF 15-20% mild to moderate mitral regurgitation mild to moderate tricuspid regurgitation with pulmonary hypertension) Echo: report reviewed, image reviewed
--- NOTE | 2016-12-13 13:10 | Progress Note ---
Assessment and Plan Assessment: * Acute kidney injury secondary to ATN - s/p HD initiation on 12/08 * Acute hypoxic respiratory failure on mechanical ventilation; extubated 12/11 * GI bleed * Anemia secondary to GI bleed * EGD w/o active bleeding * Thrombocytopenia Plan: * Hemodialysis MWF schedule * UF as tolerated * Transfuse blood products per primary team * Avoid potential nephrotoxins * Dose medications for renal function * Monitor for evidence of renal recovery * AM labs are ordered * Daughter at bedside Subjective Date of service: 12/13/16 Principal diagnosis: bilateral leg wounds; TREMAINE Interval history: No acute events overnight Objective - Vital Signs Vital signs: Vital Signs - 12hr 12/13/16 12/13/16 12/13/16 02:00 03:00 03:45 Temperature 98 F Pulse Rate 89 88 Pulse Rate [ Anterior Bilateral Throughout] Pulse Rate [ From Monitor] Pulse Rate [ Posterior Bilateral Throughout] Respiratory 24 16 Rate Respiratory Rate [Anterior Bilateral Throughout] Respiratory Rate [Posterior Bilateral Throughout] Blood Pressure 121/70 O2 Sat by Pulse 100 99 Oximetry 12/13/16 12/13/16 12/13/16 04:00 04:36 05:00 Temperature Pulse Rate 92 H 90 Pulse Rate [ Anterior Bilateral Throughout] Pulse Rate [ 92 H From Monitor] Pulse Rate [ Posterior Bilateral Throughout] Respiratory 22 15 27 H Rate Respiratory Rate [Anterior Bilateral Throughout] Respiratory Rate [Posterior Bilateral Throughout] Blood Pressure 135/73 117/72 O2 Sat by Pulse 99 100 Oximetry 12/13/16 12/13/16 12/13/16 05:36 06:00 07:00 Temperature Pulse Rate 89 89 Pulse Rate [ Anterior Bilateral Throughout] Pulse Rate [ From Monitor] Pulse Rate [ Posterior Bilateral Throughout] Respiratory 16 17 17 Rate Respiratory Rate [Anterior Bilateral Throughout] Respiratory Rate [Posterior Bilateral Throughout] Blood Pressure 108/63 109/58 O2 Sat by Pulse 100 97 Oximetry 12/13/16 12/13/16 12/13/16 07:55 08:00 08:08 Temperature 97.3 F L Pulse Rate 93 H Pulse Rate [ 91 H Anterior Bilateral Throughout] Pulse Rate [ From Monitor] Pulse Rate [ 77 Posterior Bilateral Throughout] Respiratory 18 Rate Respiratory 24 Rate [Anterior Bilateral Throughout] Respiratory 24 Rate [Posterior Bilateral Throughout] Blood Pressure 115/76 O2 Sat by Pulse 100 100 Oximetry 12/13/16 12/13/16 12/13/16 08:10 09:00 10:00 Temperature Pulse Rate 84 82 Pulse Rate [ Anterior Bilateral Throughout] Pulse Rate [ 91 H From Monitor] Pulse Rate [ Posterior Bilateral Throughout] Respiratory 18 20 21 Rate Respiratory Rate [Anterior Bilateral Throughout] Respiratory Rate [Posterior Bilateral Throughout] Blood Pressure 132/66 118/58 O2 Sat by Pulse 100 99 100 Oximetry 12/13/16 12/13/16 12/13/16 10:26 11:00 12:00 Temperature Pulse Rate 94 H 91 H 86 Pulse Rate [ Anterior Bilateral Throughout] Pulse Rate [ 86 From Monitor] Pulse Rate [ Posterior Bilateral Throughout] Respiratory 11 L 19 Rate Respiratory Rate [Anterior Bilateral Throughout] Respiratory Rate [Posterior Bilateral Throughout] Blood Pressure 124/61 125/71 118/64 O2 Sat by Pulse 100 100 Oximetry - General Appearance General appearance: chronically ill EENT: ATNC Respiratory: Present: Other (coarse BS) Cardiology: regular, S1S2 Gastrointestinal: no tenderness, no distended, other (flank wall edema) Integumentary: other (bilateral LE bandaged; purpura to bilateral hands) Musculoskeletal: other (+thigh edema) - Lab 12/13/16 04:30 12/13/16 04:30 Most recent lab results Calcium 7.7 mg/dL (8.4-10.2) L 12/13/16 04:30 Magnesium 2.10 mg/dL (1.7-2.3) 12/08/16 04:00 Urine Creatinine 78.6 mg/dL (0.1-20.0) H 11/30/16 10:00 Urine Sodium 10 mEq/L 11/30/16 10:00
--- NOTE | 2016-12-13 14:57 | Progress Note ---
Assessment and Plan Assessment and plan: S/P in house cardiac arrest - Patient extubated on 12/11 - Patient is drowsy Bilateral DM leg ulcer - treated with IV rocephin for 10days - On topical antibacterials DM - Sliding scale insulin Acute on chronic kidney disease - patient is on dialysis MWF - Nephrology following Hypertension - Doesn't need antihypertensive medication CAD Chronic systolic heart failure a.fib - Low-dose carvedilol - Cardiology following Thrombocytopenia - We will monitor - No chemical prophylaxis GI bleed - Secondary to gastritis/tendinitis - Continue PPI - H&H stable Diarrhea - C. difficile nagative DVT prophylaxis - SCD Disposition - transfer to telemetry. The high probability of a clinically significant, sudden or life threatening deterioration of the [neurology, CV, repiratory] system(s) required my full and direct attention, intervention and personal management. The aggregate critical care time was [31] minutes. This time is in addition to time spent performing reported procedures but includes the following: [x] Data Review and interpretation [x] Patient assessment and monitoring of vital signs [x] Documentation [x] Medication orders and management History Interval history: Patient was seen and evaluated this morning, patient is on HF oxygen. Hospitalist Physical - Physical exam Narrative exam: Patient extubated on 12/11. The patient appeared well nourished and normally developed. Vital signs as documented. Head exam is unremarkable. No scleral icterus . Neck is without jugular venous distension, thyromegaly, or carotid bruits. Lungs are clear to auscultation. Cardiac exam reveals regular rate and Rhythm. First and second heart sounds normal. No murmurs, rubs or gallops. Abdominal exam reveals normal bowel sounds, no masses, no organomegaly and no aortic enlargement. Extremities significant for bilateral leg ulcer around the calf area, clean dressing around it. No office of discharge. Edema in the upper extremities. 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 - Constitutional Vitals: Temp Pulse Resp BP Pulse Ox 97.3 F L 87 16 118/64 100 12/13/16 08:00 12/13/16 13:54 12/13/16 13:54 12/13/16 12:00 12/13/16 12:00 General appearance: Present: no acute distress, other (orally intubated on ventilatory support and sedated) Results - Labs CBC & Chem 7: 12/13/16 04:30 12/13/16 04:30 Labs: Laboratory Last Values WBC 11.3 K/mm3 (4.5-11.0) H 12/12/16 06:30 RBC 3.30 M/mm3 (3.65-5.03) L 12/12/16 06:30 Hgb 8.4 gm/dl (11.8-15.2) L 12/13/16 04:30 Hct 25.8 % (35.5-45.6) L 12/13/16 04:30 MCV 85 fl (84-94) 12/12/16 06:30 MCH 27 pg (28-32) L 12/12/16 06:30 MCHC 32 % (32-34) 12/12/16 06:30 RDW 16.8 % (13.2-15.2) H 12/12/16 06:30 Plt Count 88 K/mm3 (140-440) L 12/12/16 06:30 Lymph % (Auto) 1.5 % (13.4-35.0) L 12/08/16 04:00 [place] % (Auto) 9.1 % (0.0-7.3) H 12/08/16 04:00 Eos % (Auto) 0.7 % (0.0-4.3) 12/08/16 04:00 Baso % (Auto) 0.1 % (0.0-1.8) 12/08/16 04:00 Lymph # 0.2 K/mm3 (1.2-5.4) L 12/08/16 04:00 [place] # 1.2 K/mm3 (0.0-0.8) H 12/08/16 04:00 Eos # 0.1 K/mm3 (0.0-0.4) 12/08/16 04:00 Baso # 0.0 K/mm3 (0.0-0.1) 12/08/16 04:00 Add Manual Diff Complete 12/12/16 06:30 Total Counted 100 12/12/16 06:30 Seg Neutrophils % [employer] 12/12/16 06:30 Seg Neuts % (Manual) 99.0 % (40.0-70.0) H 12/12/16 06:30 Band Neutrophils % 0 % 12/12/16 06:30 Lymphocytes % (Manual) 0 % (13.4-35.0) L 12/12/16 06:30 Reactive Lymphs % (Man) 0 % 12/12/16 06:30 Monocytes % (Manual) 1.0 % (0.0-7.3) 12/12/16 06:30 Eosinophils % (Manual) 0 % (0.0-4.3) 12/12/16 06:30 Basophils % (Manual) 0 % (0.0-1.8) 12/12/16 06:30 Metamyelocytes % 0 % 12/12/16 06:30 Myelocytes % 0 % 12/12/16 06:30 Promyelocytes % 0 % 12/12/16 06:30 Blast Cells % 0 % 12/12/16 06:30 Nucleated RBC % 1.0 % (0.0-0.9) H 12/12/16 06:30 Seg Neutrophils # 11.7 K/mm3 (1.8-7.7) H 12/08/16 04:00 Seg Neutrophils # Man 11.2 K/mm3 (1.8-7.7) H 12/12/16 06:30 Band Neutrophils # 0.0 K/mm3 12/12/16 06:30 Lymphocytes # (Manual) 0.0 K/mm3 (1.2-5.4) L 12/12/16 06:30 Abs React Lymphs (Man) 0.0 K/mm3 12/12/16 06:30 Monocytes # (Manual) 0.1 K/mm3 (0.0-0.8) 12/12/16 06:30 Eosinophils # (Manual) 0.0 K/mm3 (0.0-0.4) 12/12/16 06:30 Basophils # (Manual) 0.0 K/mm3 (0.0-0.1) 12/12/16 06:30 Metamyelocytes # 0.0 K/mm3 12/12/16 06:30 Myelocytes # 0.0 K/mm3 12/12/16 06:30 Promyelocytes # 0.0 K/mm3 12/12/16 06:30 Blast Cells # 0.0 K/mm3 12/12/16 06:30 WBC Morphology Not Reportable 12/12/16 06:30 Hypersegmented Neuts Not Reportable 12/12/16 06:30 Hyposegmented Neuts Not Reportable 12/12/16 06:30 Hypogranular Neuts Not Reportable 12/12/16 06:30 Smudge Cells Not Reportable 12/12/16 06:30 Toxic Granulation Not Reportable 12/12/16 06:30 Toxic Vacuolation Not Reportable 12/12/16 06:30 Dohle Bodies Not Reportable 12/12/16 06:30 Pelger-Huet Anomaly Not Reportable 12/12/16 06:30 Demetra Rods Not Reportable 12/12/16 06:30 Platelet Estimate Consistent w auto 12/12/16 06:30 Clumped Platelets Not Reportable 12/12/16 06:30 Plt Clumps, EDTA Not Reportable 12/12/16 06:30 Large Platelets Not Reportable 12/12/16 06:30 Giant Platelets Not Reportable 12/12/16 06:30 Platelet Satelliting Not Reportable 12/12/16 06:30 Plt Morphology Comment Not Reportable 12/12/16 06:30 RBC Morphology Not Reportable 12/12/16 06:30 Dimorphic RBCs Not Reportable 12/12/16 06:30 Polychromasia Not Reportable 12/12/16 06:30 Hypochromasia Few 12/12/16 06:30 Poikilocytosis Not Reportable 12/12/16 06:30 Anisocytosis 1+ 12/12/16 06:30 Microcytosis Not Reportable 12/12/16 06:30 Macrocytosis Not Reportable 12/12/16 06:30 Spherocytes Not Reportable 12/12/16 06:30 Pappenheimer Bodies Not Reportable 12/12/16 06:30 Sickle Cells Not Reportable 12/12/16 06:30 Target Cells Few 12/12/16 06:30 Tear Drop Cells Not Reportable 12/12/16 06:30 Ovalocytes Not Reportable 12/12/16 06:30 Helmet Cells Not Reportable 12/12/16 06:30 Don-Noel Bodies Not Reportable 12/12/16 06:30 Rhodelia Rings Not Reportable 12/12/16 06:30 Walton Cells Not Reportable 12/12/16 06:30 Bite Cells Not Reportable 12/12/16 06:30 Crenated Cell Not Reportable 12/12/16 06:30 Elliptocytes Not Reportable 12/12/16 06:30 Acanthocytes (Spur) Not Reportable 12/12/16 06:30 Rouleaux Not Reportable 12/12/16 06:30 Hemoglobin C Crystals Not Reportable 12/12/16 06:30 Schistocytes Not Reportable 12/12/16 06:30 Malaria parasites Not Reportable 12/12/16 06:30 Romeo Bodies Not Reportable 12/12/16 06:30 Hem Pathologist Commnt No 12/12/16 06:30 PT 16.6 Sec. (12.2-14.9) H 12/02/16 19:20 INR 1.27 (0.87-1.13) H 12/02/16 19:20 APTT 45.4 Sec. (24.2-36.6) H 12/02/16 19:20 Heparin Anti-Xa Level < 0.10 U.I./ml (0.3-0.7) L 12/03/16 01:15 POC ABG pH 7.517 (7.35-7.45) H 12/11/16 09:05 POC ABG pCO2 32.2 (35-45) L 12/11/16 09:05 POC ABG pO2 97 (80-105) 12/11/16 09:05 POC ABG HCO3 26.1 12/11/16 09:05 POC ABG Total CO2 27 12/11/16 09:05 POC ABG O2 Sat 98 12/11/16 09:05 POC ABG Base Excess 3 12/11/16 09:05 FiO2 30 % 12/11/16 09:05 Sodium 138 mmol/L (137-145) 12/13/16 04:30 Potassium 4.2 mmol/L (3.6-5.0) 12/13/16 04:30 Chloride 99.5 mmol/L (98-107) 12/13/16 04:30 Carbon Dioxide 28 mmol/L (22-30) 12/13/16 04:30 Anion Gap 15 mmol/L 12/13/16 04:30 BUN 53 mg/dL (9-20) H 12/13/16 04:30 Creatinine 2.9 mg/dL (0.8-1.5) H 12/13/16 04:30 Estimated GFR 26 ml/min 12/13/16 04:30 BUN/Creatinine Ratio 18.27 % 12/13/16 04:30 Glucose 85 mg/dL (75-100) 12/13/16 04:30 POC Glucose 101 (70-105) 12/13/16 05:07 Hemoglobin A1c 10.6 % (4-6) H 11/28/16 16:02 Lactic Acid 2.60 mmol/L (0.7-2.0) H* 12/04/16 13:22 Calcium 7.7 mg/dL (8.4-10.2) L 12/13/16 04:30 Magnesium 2.10 mg/dL (1.7-2.3) 12/08/16 04:00 Total Bilirubin 2.00 mg/dL (0.1-1.2) H 12/08/16 04:00 AST 35 units/L (5-40) 12/08/16 04:00 ALT 37 units/L (7-56) 12/08/16 04:00 Alkaline Phosphatase 132 units/L (35-129) H 12/08/16 04:00 Ammonia 90.0 umol/L (25-60) H 12/08/16 11:50 Total Creatine Kinase 59 units/L (55-170) 12/02/16 19:23 CK-MB (CK-2) 1.9 ng/mL (0.0-4.0) 12/02/16 19:23 CK-MB (CK-2) Rel Index 3.2 (0-4) 12/02/16 19:23 Troponin T 0.098 ng/mL (0.00-0.029) H 12/03/16 08:01 Total Protein 5.6 g/dL (6.3-8.2) L 12/08/16 04:00 Albumin 2.6 g/dL (3.9-5) L 12/08/16 04:00 Albumin/Globulin Ratio 0.9 % 12/08/16 04:00 Triglycerides 72 mg/dL (2-149) 11/30/16 20:37 Cholesterol 132 mg/dL (50-199) 11/30/16 20:37 LDL Cholesterol Direct 82 mg/dL (50-130) 11/30/16 20:37 HDL Cholesterol 36 mg/dL (40-59) L 11/30/16 20:37 Cholesterol/HDL Ratio 3.66 % 11/30/16 20:37 TSH 0.764 mlU/mL (0.270-4.200) 12/08/16 11:50 Urine Color Yellow (Yellow) 11/30/16 10:00 Urine Turbidity Clear (Clear) 11/30/16 10:00 Urine pH 6.0 (5.0-7.0) 11/30/16 10:00 Ur Specific Cope 1.018 (1.003-1.030) 11/30/16 10:00 Urine Protein 30 mg/dl mg/dL (Negative) 11/30/16 10:00 Urine Glucose (UA) Neg mg/dL (Negative) 11/30/16 10:00 Urine Ketones Neg mg/dL (Negative) 11/30/16 10:00 Urine Blood Neg (Negative) 11/30/16 10:00 Urine Nitrite Neg (Negative) 11/30/16 10:00 Urine Bilirubin Neg (Negative) 11/30/16 10:00 Urine Urobilinogen < 2.0 mg/dL (<2.0) 11/30/16 10:00 Ur Leukocyte Esterase Tr (Negative) 11/30/16 10:00 Urine WBC (Auto) 2.0 /HPF (0.0-6.0) 11/30/16 10:00 Urine RBC (Auto) < 1.0 /HPF (0.0-6.0) 11/30/16 10:00 U Epithel Cells (Auto) < 1.0 /HPF (0-13.0) 11/30/16 10:00 Urine Eosinophils None seen (None Seen) 11/30/16 10:00 Urine Creatinine 78.6 mg/dL (0.1-20.0) H 11/30/16 10:00 Urine Sodium 10 mEq/L 11/30/16 10:00 Vancomycin Trough 19.0 ug/mL (5.0-20.0) 12/03/16 06:04 Random Vancomycin 24.7 ug/mL (0-40.0) 12/05/16 05:00 Hepatitis A IgM Ab Non-reactive (NonReactive) 12/08/16 12:20 Hep Bs Antigen Non-reactive (Negative) 12/08/16 12:20 Hep B Core IgM Ab Non-reactive (NonReactive) 12/08/16 12:20 Hepatitis C Antibody Non-reactive (NonReactive) 06/29/17 12:20 Blood Type B POSITIVE 12/07/16 16:09 Antibody Screen TNR 12/07/16 16:09 RHONDA Antibody Screen Negative 12/07/16 16:09 Crossmatch See Detail 12/07/16 16:09
[2016-12-14] MEDS: NOVOLOG SUB-Q SCH (00:40)
[2016-12-14 05:32] LABS: Eosinophils % (Auto) 0.4 % (0.0-4.3); Hematocrit 24.8 % (35.5-45.6); Hemoglobin 8.1 gm/dl (11.8-15.2); Mean Corpuscular HGB Conc 33 % (32-34); Mean Corpuscular Hemoglobin 28 pg (28-32); Mean Corpuscular Volume 85 fl (84-94); Red Blood Count 2.92 M/mm3 (3.65-5.03); Red Cell Distribution Width 16.9 % (13.2-15.2); White Blood Count 9.7 K/mm3 (4.5-11.0)
[2016-12-14 05:33] LABS: Platelet Count 66 K/mm3 (140-440)
[2016-12-14 05:54] LABS: BUN/Creatinine Ratio 22.66; Chloride 98.7 mmol/L (98-107); Potassium 4.8 mmol/L (3.6-5.0)
[2016-12-14] MEDS: XOPENEX IH SCH ×3 (07:49→20:27)
--- NOTE | 2016-12-14 08:34 | Progress Note ---
Assessment and Plan Assessment: * Oliguric acute kidney injury secondary to ATN - s/p HD initiation on 12/08 * Acute hypoxic respiratory failure on mechanical ventilation; extubated 12/11 * GI bleed * Anemia secondary to GI bleed * EGD w/o active bleeding * Thrombocytopenia Plan: * Hemodialysis MWF schedule. UF as tolerated; UOP remains poor * Transfuse blood products per primary team * Avoid potential nephrotoxins * Dose medications for renal function * Monitor for evidence of renal recovery * AM labs are ordered Subjective Date of service: 12/14/16 Principal diagnosis: bilateral leg wounds; TREMAINE Interval history: Patient transferred to floor Objective - Vital Signs Vital signs: Vital Signs - 12hr 12/13/16 12/13/16 12/13/16 20:58 21:42 22:00 Temperature Pulse Rate Pulse Rate [ 82 From Monitor] Pulse Rate [ 82 Posterior Bilateral Throughout] Respiratory 18 Rate Respiratory 20 Rate [Posterior Bilateral Throughout] Blood Pressure Blood Pressure [Left Arm] O2 Sat by Pulse 100 100 Oximetry 12/13/16 12/14/16 12/14/16 22:45 00:00 04:00 Temperature 97.9 F 98.2 F Pulse Rate 88 Pulse Rate [ 45 L 83 From Monitor] Pulse Rate [ Posterior Bilateral Throughout] Respiratory 18 18 Rate Respiratory Rate [Posterior Bilateral Throughout] Blood Pressure 120/75 Blood Pressure 134/82 111/57 [Left Arm] O2 Sat by Pulse 98 97 Oximetry 12/14/16 12/14/16 12/14/16 07:49 07:57 08:04 Temperature Pulse Rate Pulse Rate [ From Monitor] Pulse Rate [ 81 83 Posterior Bilateral Throughout] Respiratory Rate Respiratory 22 20 Rate [Posterior Bilateral Throughout] Blood Pressure Blood Pressure [Left Arm] O2 Sat by Pulse 98 Oximetry - General Appearance General appearance: frail EENT: ATNC Respiratory: Present: Other (coarse breath sounds) Cardiology: regular, S1S2 Gastrointestinal: no tenderness, no distended Neurologic: other (mentation improving) - Lab 12/14/16 05:00 12/14/16 05:00 Most recent lab results Calcium 8.0 mg/dL (8.4-10.2) L 12/14/16 05:00 Magnesium 2.10 mg/dL (1.7-2.3) 12/08/16 04:00 Urine Creatinine 78.6 mg/dL (0.1-20.0) H 11/30/16 10:00 Urine Sodium 10 mEq/L 11/30/16 10:00
[2016-12-14] MEDS: TRIPLE ANTIBIOTIC TP SCH (09:27)
[2016-12-14] MEDS: COREG PO SCH (09:28)
[2016-12-14] MEDS: PROTONIX FEEDTUBE SCH (09:29)
--- NOTE | 2016-12-14 10:19 | Progress Note ---
Assessment and Plan Acute respiratory failure-->extubated 12/11 management per pulmonary Status post cardiac arrest Acute on chronic systolic heart failure dialysis per nephrology increase coreg to 6.25mg daily Ccrdiomyopathy s/p AICD Coronary artery disease Peripheral vascular disease with left leg ulcer Hypertension Hyperlipidemia Diabetes End-stage renal disease on hemodialysis Anemia secondary to GI bleed The patient has been seen in conjunction with Dr. Hale who agrees with the assessment and plan of care. Subjective Date of service: 12/14/16 Principal diagnosis: bilateral leg wounds; TREMAINE Interval history: The patient is resting in bed. He is lethargic but arousable. No acute distress noted. Paced rhythm on the monitor. Objective Last Vital Signs Temp 98.3 F 12/14/16 09:16 Pulse 74 12/14/16 09:28 Resp 16 12/14/16 09:16 BP 144/73 12/14/16 09:28 Pulse Ox 94 12/14/16 09:16 - Physical Examination General: No Apparent Distress (lethargic but arousable), Other HEENT: Positive: Normocephaly, Mucus Membranes Moist Neck: Positive: neck supple, trachea midline Cardiac: Positive: Reg Rate and Rhythm, S1/S2 Lungs: Positive: Rhonchi Neuro: Positive: Other (lethargic but arousable) Abdomen: Positive: Soft, Active Bowel Sounds Skin: Positive: Clear, Other (Multiple ulcers in the legs - Dressing in situ.). Negative: Rash Musculoskeletal: other (Dressing in situ (multiple ulcers in the legs).) Extremities: Absent: lower extr. pulses, edema (bilateral LE dressings intact) - Labs and Meds CBC 12/14/16 Range/Units 05:00 WBC 9.7 (4.5-11.0) K/mm3 RBC 2.92 L (3.65-5.03) M/mm3 Hgb 8.1 L (11.8-15.2) gm/dl Hct 24.8 L (35.5-45.6) % Plt Count 66 L (140-440) K/mm3 Lymph # 0.2 L (1.2-5.4) K/mm3 [place] # 1.0 H (0.0-0.8) K/mm3 Eos # 0.0 (0.0-0.4) K/mm3 Baso # 0.0 (0.0-0.1) K/mm3 Comprehensive Metabolic Panel 12/14/16 Range/Units 05:00 Sodium 139 (137-145) mmol/L Potassium 4.8 (3.6-5.0) mmol/L Chloride 98.7 (98-107) mmol/L Carbon Dioxide 27 (22-30) mmol/L BUN 68 H (9-20) mg/dL Creatinine 3.0 H (0.8-1.5) mg/dL Glucose 155 H (75-100) mg/dL Calcium 8.0 L (8.4-10.2) mg/dL - Imaging and Cardiology EKG: report reviewed, image reviewed (12/03/2016 severe LV dysfunction by ventricle dysfunction EF 15-20% mild to moderate mitral regurgitation mild to moderate tricuspid regurgitation with pulmonary hypertension) Echo: report reviewed, image reviewed - Telemetry EKG Rhythm: Paced
[2016-12-14] MEDS: LEVEMIR SUB-Q SCH (10:46)
--- NOTE | 2016-12-14 10:49 | Hem/Onc Consultation ---
History of Present Illness - Reason for Consult Consult date: 12/08/16 - History of Present Illness &1 year old male seen for thrombocytopenia. He was admitted with wound infections and had a cardiac arrest requiring resuscitation. He is confused. Does not provide a history. Past History Past Medical History: CAD, diabetes, hypertension, hyperlipidemia, PVD, renal failure (not presently on hemodialysis) Past Surgical History: CABG (1996), Other (AICD placement, back sugery 1996) Social history: lives with family, full code. denies: smoking (quit x20 years, ), alcohol abuse, prescription drug abuse Family history: CAD, cancer, diabetes, hypertension Medications and Allergies Allergies Allergy/AdvReac Type Severity Reaction Status Date / Time lisinopril Allergy Mild Unknown Verified 08/08/14 11:26 pollen extracts AdvReac COUGH,SNEEZ Unverified 11/28/16 13:22 E Home Medications Medication Instructions Recorded Confirmed Last Taken Type Carvedilol [Coreg] 25 mg PO BID 08/21/13 12/05/16 11/28/16 History Doxazosin Mesylate 8 mg PO DAILY 08/21/13 12/05/16 11/28/16 History Insulin Glargine,Hum.rec.anlog 30 unit PO QDAY 08/21/13 12/05/16 05/28/14 History [Lantus Solostar] Isosorbide Dinitrate 30 mg PO DAILY 08/21/13 12/05/16 11/28/16 History Ranolazine [Ranexa] 1,000 mg PO BID 08/21/13 12/05/16 11/28/16 History Atorvastatin Calcium [Lipitor] 40 mg PO DAILY 12/25/13 12/05/16 11/28/16 History amLODIPine [Norvasc] 5 mg PO DAILY 03/27/14 12/05/16 11/28/16 History Epoetin Shorty [Procrit] 4,000 unit SQ QMONTH 08/08/14 12/05/16 08/04/14 History 4000 units Multivitamin [Multi-Vitamin Daily] 1 tab PO DAILY 08/08/14 12/05/16 11/28/16 History Albuterol Sulfate [Proventil HFA] 2 puff IH Q4H PRN #1 pump 08/13/14 12/05/16 Unknown Rx Insulin Aspart [NovoLOG 100 5 unit SQ AC #1 vial 08/13/14 12/05/16 Unknown Rx UNITS/ML] Metolazone 5 mg PO DAILY 30 Days 08/13/14 12/05/16 11/28/16 Rx Active Meds: Active Medications Acetaminophen (Tylenol) 650 mg PO Q4H PRN PRN Reason: Pain MILD(1-3)/Fever >100.5/DANG Last Admin: 12/13/16 04:36 Dose: 650 mg Albumin Human (Alburx 25% (Albumin)) 25 gm IV MAYELIN PRN PRN Reason: Hypotension Lipase/Protease/Amylase (Pancreaze Dr 10,500 Unit) 1 each FEEDTUBE PRN PRN PRN Reason: For Clogged Feeding Tube Atorvastatin Calcium (Lipitor) 40 mg PO QHS [facility] Last Admin: 12/13/16 22:45 Dose: 40 mg Bisacodyl (Dulcolax) 10 mg CO QDAY PRN PRN Reason: Constipation unrelieved by MOM Carvedilol (Coreg) 3.125 mg PO BID [facility] Last Admin: 12/14/16 09:28 Dose: 3.125 mg Dextrose (D50w (25gm)) 50 ml IV PRN PRN PRN Reason: Hypoglycemia Last Admin: 12/03/16 06:30 Dose: 50 ml Haloperidol Lactate (Haldol) 2.5 mg IV Q6H PRN PRN Reason: Agitation Last Admin: 12/10/16 10:52 Dose: 2.5 mg Heparin Sodium (Porcine) (Heparin) 5,000 unit IV MAYELIN PRN PRN Reason: hemodialysis Last Admin: 12/12/16 13:55 Dose: 5,000 unit Hydrophilic Ointment (Vaseline Lip Therapy) 1 applic TP DIRECT PRN PRN Reason: Dry Lips Last Admin: 12/11/16 00:28 Dose: 1 applic Sodium Chloride (Nacl 0.9%) 100 mls @ 999 mls/hr IV MAYELIN PRN PRN Reason: Hypotension Insulin Aspart (Novolog) 0 units SUB-Q Q6HR KYLAH PRN Reason: Protocol Last Admin: 12/14/16 00:40 Dose: Not Given Insulin Detemir (Levemir) 5 units SUB-Q DAILY [facility] Last Admin: 12/13/16 11:42 Dose: 5 units Levalbuterol HCl (Xopenex) 0.63 mg IH TIDRT [facility] Last Admin: 12/14/16 07:49 Dose: 0.63 mg Neomycin/Polymyxin/Bacitracin (Triple Antibiotic) 1 applic TP DAILY [facility] Last Admin: 12/14/16 09:27 Dose: 1 applic Ondansetron HCl (Zofran) 4 mg IV Q8H PRN PRN Reason: Nausea And Vomiting Last Admin: 12/01/16 17:45 Dose: 4 mg Pantoprazole (Protonix) 40 mg FEEDTUBE BID [facility] Last Admin: 12/14/16 09:29 Dose: 40 mg Simple Syrup (Simple Syrup) 15 ml FEEDTUBE PRN PRN PRN Reason: Hypoglycemia Last Admin: 12/09/16 00:47 Dose: 15 ml Simple Syrup (Simple Syrup) 30 ml FEEDTUBE PRN PRN PRN Reason: Hypoglycemia Sodium Bicarbonate (Sodium Bicarbonate) 325 mg FEEDTUBE PRN PRN PRN Reason: For Clogged Feeding Tube Sodium Hypochlorite (Dakin's Half Strength) 1 applic TP BID [facility] Last Admin: 12/13/16 22:50 Dose: 1 applicatio Review of Systems ROS unobtainable: due to mental status Exam - Constitutional Vitals: Last Vital Signs Temp 98.3 F 12/14/16 09:16 Pulse 74 12/14/16 09:28 Resp 16 12/14/16 09:16 BP 144/73 12/14/16 09:28 Pulse Ox 94 12/14/16 09:16 General appearance: mild distress - EENT Eyes: PERRL ENT: other (padma) Lymph node exam: negative cervical - Neck Neck: supple - Respiratory Respiratory effort: Positive: other (in iCU) Respiratory: bilateral: CTA - Cardiovascular Rhythm: regular Extremities: abnormal (dressing) - Gastrointestinal General gastrointestinal: Present: soft - Musculoskeletal Musculoskeletal: other (PADMA) - Neurologic Neurologic: other (PADMA) Results - Labs lab Results: Laboratory Results - last 24 hr 12/13/16 12/13/16 12/14/16 12:09 17:52 00:11 WBC RBC Hgb Hct MCV MCH MCHC RDW Plt Count Lymph % (Auto) [place] % (Auto) Eos % (Auto) Baso % (Auto) Lymph # [place] # Eos # Baso # Seg Neutrophils % Seg Neutrophils # Sodium Potassium Chloride Carbon Dioxide Anion Gap BUN Creatinine Estimated GFR BUN/Creatinine Ratio Glucose POC Glucose 179 H 126 H 121 H Calcium 12/14/16 12/14/16 12/14/16 05:00 05:00 06:33 WBC 9.7 RBC 2.92 L Hgb 8.1 L Hct 24.8 L MCV 85 MCH 28 MCHC 33 RDW 16.9 H Plt Count 66 L Lymph % (Auto) 2.2 L [place] % (Auto) 10.3 H Eos % (Auto) 0.4 Baso % (Auto) 0.0 Lymph # 0.2 L [place] # 1.0 H Eos # 0.0 Baso # 0.0 Seg Neutrophils % 87.1 H Seg Neutrophils # 8.5 H Sodium 139 Potassium 4.8 Chloride 98.7 Carbon Dioxide 27 Anion Gap 18 BUN 68 H Creatinine 3.0 H Estimated GFR 25 BUN/Creatinine Ratio 22.66 Glucose 155 H POC Glucose 129 H Calcium 8.0 L Assessment and Plan - Patient Problems (1) Thrombocytopenia due to cold Current Visit: Yes Status: Acute Plan to address problem: Smear reviewed with Dr Mckinney. No schistocytes. Unlikely TTp. Most likely due to sepsis. Treat underlying cause. Suggest antibiotics, fluids as per ICU staff. Please call with questions.
[2016-12-14] MEDS: DAKIN'S HALF STRENGTH TP SCH (10:50)
--- NOTE | 2016-12-14 10:55 | Hem/Onc Progress Note ---
Assessment and Plan - Patient Problems (1) Thrombocytopenia due to cold Current Visit: Yes Status: Acute Plan to address problem: He is improving. Still confused. No bleeding. Platelets improved. Monitor. Call with questions. Subjective Date of service: 12/14/16 Interval history: He is confused. No complains. Objective - Constitutional Vitals: Last Vital Signs Temp 98.3 F 12/14/16 09:16 Pulse 74 12/14/16 09:28 Resp 16 12/14/16 09:16 BP 144/73 12/14/16 09:28 Pulse Ox 94 12/14/16 09:16 Pain Intensity (0-10): denies any pain General appearance: no acute distress - EENT ENT: hearing intact Lymph node exam: negative cervical - Neck Neck: supple - Respiratory Respiratory effort: Positive: normal Respiratory: bilateral: CTA - Labs Lab Results: Laboratory Results - last 24 hr 12/13/16 12/13/16 12/14/16 12:09 17:52 00:11 WBC RBC Hgb Hct MCV MCH MCHC RDW Plt Count Lymph % (Auto) [place] % (Auto) Eos % (Auto) Baso % (Auto) Lymph # [place] # Eos # Baso # Seg Neutrophils % Seg Neutrophils # Sodium Potassium Chloride Carbon Dioxide Anion Gap BUN Creatinine Estimated GFR BUN/Creatinine Ratio Glucose POC Glucose 179 H 126 H 121 H Calcium 12/14/16 12/14/16 12/14/16 05:00 05:00 06:33 WBC 9.7 RBC 2.92 L Hgb 8.1 L Hct 24.8 L MCV 85 MCH 28 MCHC 33 RDW 16.9 H Plt Count 66 L Lymph % (Auto) 2.2 L [place] % (Auto) 10.3 H Eos % (Auto) 0.4 Baso % (Auto) 0.0 Lymph # 0.2 L [place] # 1.0 H Eos # 0.0 Baso # 0.0 Seg Neutrophils % 87.1 H Seg Neutrophils # 8.5 H Sodium 139 Potassium 4.8 Chloride 98.7 Carbon Dioxide 27 Anion Gap 18 BUN 68 H Creatinine 3.0 H Estimated GFR 25 BUN/Creatinine Ratio 22.66 Glucose 155 H POC Glucose 129 H Calcium 8.0 L
--- NOTE | 2016-12-14 12:38 | Progress Note ---
Assessment and Plan 71 y/o male with cardiac arrest, asystole with unknown down time and ROSC 1. Stopped PRN sedatives. 2. Will need PRN NT suctioning, maintain elevated head of bed, aspiration precautions. At least 3-4x daily. 3. HD today, continue MWF per last renal note. 4. Will need speech eval and assessment, especially now that mental status has improved 5. Foot pumps for DVT prophylaxis, given leg ulcers 6. Continue tube feeds until assessed by speech. Does not appear that he is a good candidate today given mental state Subjective Date of service: 12/14/16 Principal diagnosis: bilateral leg wounds; TREMAINE Interval history: Successful transfer out of ICU. Not as alert or responsive as yesterday. Breathing. No family at bedside. Objective Vital Signs - 12hr 12/14/16 12/14/16 12/14/16 04:00 07:49 07:57 Temperature 98.2 F Pulse Rate Pulse Rate [ 83 From Monitor] Pulse Rate [ 81 Posterior Bilateral Throughout] Respiratory 18 Rate Respiratory 22 Rate [Posterior Bilateral Throughout] Blood Pressure Blood Pressure 111/57 [Left Arm] O2 Sat by Pulse 97 98 Oximetry 12/14/16 12/14/16 12/14/16 08:04 09:16 09:28 Temperature 98.3 F Pulse Rate 74 Pulse Rate [ 84 From Monitor] Pulse Rate [ 83 Posterior Bilateral Throughout] Respiratory 16 Rate Respiratory 20 Rate [Posterior Bilateral Throughout] Blood Pressure 144/73 Blood Pressure 144/73 [Left Arm] O2 Sat by Pulse 94 Oximetry Constitutional: alert, other (does not follow commands) Eyes: other (pupils reactive and equal) ENT: oropharynx dry Neck: supple, no JVD Ascultation: Bilateral: clear, diminished breath sounds, rales (anteriorly), rhonchi Percussion: Bilateral: not dull Tactile fremitus: Bilateral: other (unable to assess as patient will not follow commands) Cardiovascular: regular rate and rhythm Gastrointestinal: normoactive bowel sounds, soft, non-distended Integumentary: normal Extremities: cool, edema (right arm edema), other (leg ulcers covered) Neurologic: pupils equal and round, other (moving spontaneously,RASS 0-1) CBC and BMP: 12/14/16 05:00 12/14/16 05:00 ABG, PT/INR, D-dimer: ABG POC ABG pH 7.517 (7.35-7.45) H 12/11/16 09:05 POC ABG pCO2 32.2 (35-45) L 12/11/16 09:05 POC ABG pO2 97 (80-105) 12/11/16 09:05 POC ABG HCO3 26.1 12/11/16 09:05 POC ABG Total CO2 27 12/11/16 09:05 POC ABG O2 Sat 98 12/11/16 09:05 PT/INR, D-dimer PT 16.6 Sec. (12.2-14.9) H 12/02/16 19:20 INR 1.27 (0.87-1.13) H 12/02/16 19:20 Abnormal lab findings: Abnormal Labs 11/28/16 11/28/16 11/28/16 14:16 16:02 16:02 WBC RBC Hgb Hct MCV MCH MCHC RDW Plt Count Lymph % (Auto) [place] % (Auto) Lymph # [place] # Seg Neutrophils % Seg Neuts % (Manual) Lymphocytes % (Manual) Monocytes % (Manual) Nucleated RBC % Seg Neutrophils # Seg Neutrophils # Man Lymphocytes # (Manual) Monocytes # (Manual) PT 17.3 H INR 1.42 H APTT 38.0 H Heparin Anti-Xa Level POC ABG pH POC ABG pCO2 POC ABG pO2 Sodium Potassium 3.3 L Chloride 96.0 L Carbon Dioxide BUN 100 H Creatinine 3.4 H Glucose 235 H POC Glucose 500 H Hemoglobin A1c Lactic Acid Calcium Total Bilirubin Alkaline Phosphatase Ammonia Troponin T Total Protein Albumin HDL Cholesterol Urine Creatinine Crossmatch 11/28/16 11/28/16 11/29/16 16:02 21:30 05:50 WBC RBC Hgb Hct MCV MCH MCHC RDW Plt Count Lymph % (Auto) [place] % (Auto) Lymph # [place] # Seg Neutrophils % Seg Neuts % (Manual) Lymphocytes % (Manual) Monocytes % (Manual) Nucleated RBC % Seg Neutrophils # Seg Neutrophils # Man Lymphocytes # (Manual) Monocytes # (Manual) PT INR APTT Heparin Anti-Xa Level POC ABG pH POC ABG pCO2 POC ABG pO2 Sodium Potassium Chloride Carbon Dioxide BUN Creatinine Glucose POC Glucose 68 L 40 L Hemoglobin A1c 10.6 H Lactic Acid Calcium Total Bilirubin Alkaline Phosphatase Ammonia Troponin T Total Protein Albumin HDL Cholesterol Urine Creatinine Crossmatch 11/29/16 11/29/16 11/29/16 06:33 08:37 08:37 WBC RBC Hgb 10.2 L Hct 30.9 L MCV MCH MCHC RDW 16.0 H Plt Count 104 L Lymph % (Auto) 2.4 L [place] % (Auto) 8.5 H Lymph # 0.2 L [place] # 0.9 H Seg Neutrophils % 89.0 H Seg Neuts % (Manual) Lymphocytes % (Manual) Monocytes % (Manual) Nucleated RBC % Seg Neutrophils # 9.2 H Seg Neutrophils # Man Lymphocytes # (Manual) Monocytes # (Manual) PT INR APTT Heparin Anti-Xa Level POC ABG pH POC ABG pCO2 POC ABG pO2 Sodium Potassium Chloride Carbon Dioxide BUN 95 H Creatinine 2.9 H Glucose POC Glucose 57 L Hemoglobin A1c Lactic Acid Calcium Total Bilirubin Alkaline Phosphatase Ammonia Troponin T Total Protein Albumin HDL Cholesterol Urine Creatinine Crossmatch 11/29/16 11/29/16 11/29/16 11:41 12:48 15:44 WBC RBC Hgb Hct MCV MCH MCHC RDW Plt Count Lymph % (Auto) [place] % (Auto) Lymph # [place] # Seg Neutrophils % Seg Neuts % (Manual) Lymphocytes % (Manual) Monocytes % (Manual) Nucleated RBC % Seg Neutrophils # Seg Neutrophils # Man Lymphocytes # (Manual) Monocytes # (Manual) PT INR APTT Heparin Anti-Xa Level POC ABG pH POC ABG pCO2 POC ABG pO2 Sodium Potassium Chloride Carbon Dioxide BUN Creatinine Glucose POC Glucose 48 L 143 H 138 H Hemoglobin A1c Lactic Acid Calcium Total Bilirubin Alkaline Phosphatase Ammonia Troponin T Total Protein Albumin HDL Cholesterol Urine Creatinine Crossmatch 11/29/16 11/29/16 11/30/16 21:04 22:26 06:11 WBC RBC Hgb Hct MCV MCH MCHC RDW Plt Count Lymph % (Auto) [place] % (Auto) Lymph # [place] # Seg Neutrophils % Seg Neuts % (Manual) Lymphocytes % (Manual) Monocytes % (Manual) Nucleated RBC % Seg Neutrophils # Seg Neutrophils # Man Lymphocytes # (Manual) Monocytes # (Manual) PT INR APTT Heparin Anti-Xa Level POC ABG pH POC ABG pCO2 POC ABG pO2 Sodium Potassium Chloride Carbon Dioxide BUN Creatinine Glucose POC Glucose 49 L 165 H 121 H Hemoglobin A1c Lactic Acid Calcium Total Bilirubin Alkaline Phosphatase Ammonia Troponin T Total Protein Albumin HDL Cholesterol Urine Creatinine Crossmatch 11/30/16 11/30/16 11/30/16 08:53 08:53 10:00 WBC RBC Hgb 10.9 L Hct 33.2 L MCV MCH MCHC RDW 16.3 H Plt Count 96 L Lymph % (Auto) [place] % (Auto) Lymph # [place] # Seg Neutrophils % Seg Neuts % (Manual) 91.0 H Lymphocytes % (Manual) 2.0 L Monocytes % (Manual) Nucleated RBC % Seg Neutrophils # Seg Neutrophils # Man 9.3 H Lymphocytes # (Manual) 0.2 L Monocytes # (Manual) PT INR APTT Heparin Anti-Xa Level POC ABG pH POC ABG pCO2 POC ABG pO2 Sodium Potassium Chloride Carbon Dioxide BUN 78 H Creatinine 2.3 H Glucose 139 H POC Glucose Hemoglobin A1c Lactic Acid Calcium 8.3 L Total Bilirubin Alkaline Phosphatase Ammonia Troponin T Total Protein Albumin HDL Cholesterol Urine Creatinine 78.6 H Crossmatch 11/30/16 11/30/16 11/30/16 11:23 17:43 20:23 WBC RBC Hgb Hct MCV MCH MCHC RDW Plt Count Lymph % (Auto) [place] % (Auto) Lymph # [place] # Seg Neutrophils % Seg Neuts % (Manual) Lymphocytes % (Manual) Monocytes % (Manual) Nucleated RBC % Seg Neutrophils # Seg Neutrophils # Man Lymphocytes # (Manual) Monocytes # (Manual) PT INR APTT Heparin Anti-Xa Level POC ABG pH POC ABG pCO2 POC ABG pO2 Sodium Potassium Chloride Carbon Dioxide BUN Creatinine Glucose POC Glucose 169 H 57 L 69 L Hemoglobin A1c Lactic Acid Calcium Total Bilirubin Alkaline Phosphatase Ammonia Troponin T Total Protein Albumin HDL Cholesterol Urine Creatinine Crossmatch 11/30/16 11/30/16 12/01/16 20:37 22:12 05:30 WBC RBC Hgb Hct MCV MCH MCHC RDW Plt Count Lymph % (Auto) [place] % (Auto) Lymph # [place] # Seg Neutrophils % Seg Neuts % (Manual) Lymphocytes % (Manual) Monocytes % (Manual) Nucleated RBC % Seg Neutrophils # Seg Neutrophils # Man Lymphocytes # (Manual) Monocytes # (Manual) PT INR APTT Heparin Anti-Xa Level POC ABG pH POC ABG pCO2 POC ABG pO2 Sodium Potassium Chloride Carbon Dioxide BUN Creatinine Glucose POC Glucose 107 H 151 H Hemoglobin A1c Lactic Acid Calcium Total Bilirubin Alkaline Phosphatase Ammonia Troponin T 0.033 H Total Protein Albumin HDL Cholesterol 36 L Urine Creatinine Crossmatch 12/01/16 12/01/16 12/01/16 07:39 07:39 11:48 WBC 12.9 H RBC Hgb 10.9 L Hct 33.2 L MCV MCH MCHC RDW 16.6 H Plt Count 94 L Lymph % (Auto) [place] % (Auto) Lymph # [place] # Seg Neutrophils % Seg Neuts % (Manual) 98.0 H Lymphocytes % (Manual) 0 L Monocytes % (Manual) Nucleated RBC % Seg Neutrophils # Seg Neutrophils # Man 12.6 H Lymphocytes # (Manual) 0.0 L Monocytes # (Manual) PT INR APTT Heparin Anti-Xa Level POC ABG pH POC ABG pCO2 POC ABG pO2 Sodium Potassium Chloride Carbon Dioxide BUN 71 H Creatinine 2.1 H Glucose POC Glucose 193 H Hemoglobin A1c Lactic Acid Calcium 8.1 L Total Bilirubin Alkaline Phosphatase Ammonia Troponin T Total Protein Albumin HDL Cholesterol Urine Creatinine Crossmatch 12/01/16 12/01/16 12/02/16 17:02 21:17 06:05 WBC RBC Hgb Hct MCV MCH MCHC RDW Plt Count Lymph % (Auto) [place] % (Auto) Lymph # [place] # Seg Neutrophils % Seg Neuts % (Manual) Lymphocytes % (Manual) Monocytes % (Manual) Nucleated RBC % Seg Neutrophils # Seg Neutrophils # Man Lymphocytes # (Manual) Monocytes # (Manual) PT INR APTT Heparin Anti-Xa Level POC ABG pH POC ABG pCO2 POC ABG pO2 Sodium Potassium Chloride Carbon Dioxide BUN Creatinine Glucose POC Glucose 170 H 156 H < 40 L Hemoglobin A1c Lactic Acid Calcium Total Bilirubin Alkaline Phosphatase Ammonia Troponin T Total Protein Albumin HDL Cholesterol Urine Creatinine Crossmatch 12/02/16 12/02/16 12/02/16 06:34 06:41 07:48 WBC RBC Hgb 10.2 L Hct 31.4 L MCV MCH 27 L MCHC RDW 16.3 H Plt Count 89 L Lymph % (Auto) [place] % (Auto) Lymph # [place] # Seg Neutrophils % Seg Neuts % (Manual) 87.0 H Lymphocytes % (Manual) 7.0 L Monocytes % (Manual) Nucleated RBC % Seg Neutrophils # Seg Neutrophils # Man 8.9 H Lymphocytes # (Manual) 0.7 L Monocytes # (Manual) PT INR APTT Heparin Anti-Xa Level POC ABG pH POC ABG pCO2 POC ABG pO2 Sodium Potassium Chloride Carbon Dioxide BUN Creatinine Glucose POC Glucose 141 H 124 H Hemoglobin A1c Lactic Acid Calcium Total Bilirubin Alkaline Phosphatase Ammonia Troponin T Total Protein Albumin HDL Cholesterol Urine Creatinine Crossmatch 12/02/16 12/02/16 12/02/16 07:48 12:22 18:02 WBC RBC Hgb Hct MCV MCH MCHC RDW Plt Count Lymph % (Auto) [place] % (Auto) Lymph # [place] # Seg Neutrophils % Seg Neuts % (Manual) Lymphocytes % (Manual) Monocytes % (Manual) Nucleated RBC % Seg Neutrophils # Seg Neutrophils # Man Lymphocytes # (Manual) Monocytes # (Manual) PT INR APTT Heparin Anti-Xa Level POC ABG pH POC ABG pCO2 POC ABG pO2 Sodium 136 L Potassium Chloride Carbon Dioxide BUN 75 H Creatinine 2.7 H Glucose POC Glucose < 40 L 53 L Hemoglobin A1c Lactic Acid Calcium 7.9 L Total Bilirubin Alkaline Phosphatase Ammonia Troponin T Total Protein Albumin HDL Cholesterol Urine Creatinine Crossmatch 12/02/16 12/02/16 12/02/16 19:20 19:23 19:23 WBC 13.8 H RBC Hgb 10.9 L Hct 34.6 L MCV MCH 27 L MCHC 31 L RDW 16.2 H Plt Count 106 L Lymph % (Auto) [place] % (Auto) Lymph # [place] # Seg Neutrophils % Seg Neuts % (Manual) 86.0 H Lymphocytes % (Manual) 4.0 L Monocytes % (Manual) Nucleated RBC % Seg Neutrophils # Seg Neutrophils # Man 11.9 H Lymphocytes # (Manual) 0.6 L Monocytes # (Manual) 1.0 H PT 16.6 H INR 1.27 H APTT 45.4 H Heparin Anti-Xa Level POC ABG pH POC ABG pCO2 POC ABG pO2 Sodium Potassium Chloride 95.8 L Carbon Dioxide BUN 75 H Creatinine 2.8 H Glucose 105 H POC Glucose Hemoglobin A1c Lactic Acid Calcium 7.8 L Total Bilirubin 2.70 H Alkaline Phosphatase Ammonia Troponin T Total Protein 6.0 L Albumin 2.7 L HDL Cholesterol Urine Creatinine Crossmatch 12/02/16 12/02/16 12/03/16 19:39 21:14 01:15 WBC RBC Hgb Hct MCV MCH MCHC RDW Plt Count Lymph % (Auto) [place] % (Auto) Lymph # [place] # Seg Neutrophils % Seg Neuts % (Manual) Lymphocytes % (Manual) Monocytes % (Manual) Nucleated RBC % Seg Neutrophils # Seg Neutrophils # Man Lymphocytes # (Manual) Monocytes # (Manual) PT INR APTT Heparin Anti-Xa Level < 0.10 L POC ABG pH 7.214 L POC ABG pCO2 54.0 H POC ABG pO2 227 H Sodium Potassium Chloride Carbon Dioxide BUN Creatinine Glucose POC Glucose 141 H Hemoglobin A1c Lactic Acid Calcium Total Bilirubin Alkaline Phosphatase Ammonia Troponin T Total Protein Albumin HDL Cholesterol Urine Creatinine Crossmatch 12/03/16 12/03/16 12/03/16 04:15 05:15 06:04 WBC 45.9 H* RBC Hgb 10.5 L Hct 32.9 L MCV MCH 27 L MCHC RDW 16.6 H Plt Count 101 L Lymph % (Auto) [place] % (Auto) Lymph # [place] # Seg Neutrophils % Seg Neuts % (Manual) Lymphocytes % (Manual) 8.0 L Monocytes % (Manual) 8.0 H Nucleated RBC % Seg Neutrophils # Seg Neutrophils # Man 31.2 H Lymphocytes # (Manual) Monocytes # (Manual) 3.7 H PT INR APTT Heparin Anti-Xa Level POC ABG pH POC ABG pCO2 POC ABG pO2 72 L Sodium Potassium Chloride Carbon Dioxide BUN Creatinine Glucose POC Glucose 50 L Hemoglobin A1c Lactic Acid Calcium Total Bilirubin Alkaline Phosphatase Ammonia Troponin T Total Protein Albumin HDL Cholesterol Urine Creatinine Crossmatch 12/03/16 12/03/16 12/03/16 06:04 06:51 08:01 WBC RBC Hgb Hct MCV MCH MCHC RDW Plt Count Lymph % (Auto) [place] % (Auto) Lymph # [place] # Seg Neutrophils % Seg Neuts % (Manual) Lymphocytes % (Manual) Monocytes % (Manual) Nucleated RBC % Seg Neutrophils # Seg Neutrophils # Man Lymphocytes # (Manual) Monocytes # (Manual) PT INR APTT Heparin Anti-Xa Level POC ABG pH POC ABG pCO2 POC ABG pO2 Sodium 128 L D Potassium 6.8 H* D Chloride 94.2 L Carbon Dioxide 17 L BUN 77 H Creatinine 2.6 H Glucose POC Glucose 118 H Hemoglobin A1c Lactic Acid Calcium 7.6 L Total Bilirubin Alkaline Phosphatase Ammonia Troponin T 0.098 H Total Protein Albumin HDL Cholesterol Urine Creatinine Crossmatch 12/03/16 12/03/16 12/03/16 08:13 09:44 12:19 WBC RBC Hgb Hct MCV MCH MCHC RDW Plt Count Lymph % (Auto) [place] % (Auto) Lymph # [place] # Seg Neutrophils % Seg Neuts % (Manual) Lymphocytes % (Manual) Monocytes % (Manual) Nucleated RBC % Seg Neutrophils # Seg Neutrophils # Man Lymphocytes # (Manual) Monocytes # (Manual) PT INR APTT Heparin Anti-Xa Level POC ABG pH POC ABG pCO2 POC ABG pO2 Sodium Potassium Chloride Carbon Dioxide BUN Creatinine Glucose POC Glucose 107 H 115 H Hemoglobin A1c Lactic Acid 3.40 H* Calcium Total Bilirubin Alkaline Phosphatase Ammonia Troponin T Total Protein Albumin HDL Cholesterol Urine Creatinine Crossmatch 12/03/16 12/03/16 12/03/16 16:39 17:49 20:15 WBC 18.9 H RBC 3.04 L Hgb 8.4 L Hct 26.2 L MCV MCH MCHC RDW 16.6 H Plt Count 81 L Lymph % (Auto) [place] % (Auto) Lymph # [place] # Seg Neutrophils % Seg Neuts % (Manual) 94.0 H Lymphocytes % (Manual) 1.0 L Monocytes % (Manual) Nucleated RBC % Seg Neutrophils # Seg Neutrophils # Man 17.8 H Lymphocytes # (Manual) 0.2 L Monocytes # (Manual) PT INR APTT Heparin Anti-Xa Level POC ABG pH POC ABG pCO2 POC ABG pO2 Sodium Potassium Chloride Carbon Dioxide BUN Creatinine Glucose POC Glucose 151 H Hemoglobin A1c Lactic Acid 3.10 H* Calcium Total Bilirubin Alkaline Phosphatase Ammonia Troponin T Total Protein Albumin HDL Cholesterol Urine Creatinine Crossmatch 12/03/16 12/03/16 12/03/16 23:34 Unknown Unknown WBC 22.2 H RBC 3.16 L Hgb 8.6 L Hct 27.3 L MCV MCH 27 L MCHC 31 L RDW 16.9 H Plt Count 81 L Lymph % (Auto) [place] % (Auto) Lymph # [place] # Seg Neutrophils % Seg Neuts % (Manual) Lymphocytes % (Manual) Monocytes % (Manual) Nucleated RBC % Seg Neutrophils # Seg Neutrophils # Man Lymphocytes # (Manual) Monocytes # (Manual) PT INR APTT Heparin Anti-Xa Level POC ABG pH POC ABG pCO2 POC ABG pO2 Sodium 132 L Potassium Chloride 95.8 L Carbon Dioxide 19 L BUN 93 H Creatinine 3.4 H Glucose 130 H POC Glucose 188 H Hemoglobin A1c Lactic Acid Calcium 7.4 L Total Bilirubin Alkaline Phosphatase Ammonia Troponin T Total Protein Albumin HDL Cholesterol Urine Creatinine Crossmatch 12/04/16 12/04/16 12/04/16 04:57 05:45 06:00 WBC 17.8 H RBC 3.07 L Hgb 8.7 L Hct 26.1 L MCV MCH MCHC RDW 16.5 H Plt Count 93 L Lymph % (Auto) [place] % (Auto) Lymph # [place] # Seg Neutrophils % Seg Neuts % (Manual) 80.0 H Lymphocytes % (Manual) 7.0 L Monocytes % (Manual) Nucleated RBC % Seg Neutrophils # Seg Neutrophils # Man 14.2 H Lymphocytes # (Manual) Monocytes # (Manual) 1.1 H PT INR APTT Heparin Anti-Xa Level POC ABG pH 7.277 L POC ABG pCO2 POC ABG pO2 198 H Sodium Potassium Chloride Carbon Dioxide BUN Creatinine Glucose POC Glucose 186 H Hemoglobin A1c Lactic Acid Calcium Total Bilirubin Alkaline Phosphatase Ammonia Troponin T Total Protein Albumin HDL Cholesterol Urine Creatinine Crossmatch 12/04/16 12/04/16 12/04/16 06:00 07:23 11:50 WBC RBC Hgb Hct MCV MCH MCHC RDW Plt Count Lymph % (Auto) [place] % (Auto) Lymph # [place] # Seg Neutrophils % Seg Neuts % (Manual) Lymphocytes % (Manual) Monocytes % (Manual) Nucleated RBC % Seg Neutrophils # Seg Neutrophils # Man Lymphocytes # (Manual) Monocytes # (Manual) PT INR APTT Heparin Anti-Xa Level POC ABG pH POC ABG pCO2 POC ABG pO2 Sodium 133 L Potassium Chloride 96.0 L Carbon Dioxide 18 L BUN 103 H Creatinine 3.6 H Glucose 190 H POC Glucose 187 H 190 H Hemoglobin A1c Lactic Acid Calcium 7.7 L Total Bilirubin Alkaline Phosphatase Ammonia Troponin T Total Protein Albumin HDL Cholesterol Urine Creatinine Crossmatch 12/04/16 12/04/16 12/04/16 13:22 17:46 23:33 WBC RBC Hgb Hct MCV MCH MCHC RDW Plt Count Lymph % (Auto) [place] % (Auto) Lymph # [place] # Seg Neutrophils % Seg Neuts % (Manual) Lymphocytes % (Manual) Monocytes % (Manual) Nucleated RBC % Seg Neutrophils # Seg Neutrophils # Man Lymphocytes # (Manual) Monocytes # (Manual) PT INR APTT Heparin Anti-Xa Level POC ABG pH POC ABG pCO2 POC ABG pO2 Sodium Potassium Chloride Carbon Dioxide BUN Creatinine Glucose POC Glucose 264 H 263 H Hemoglobin A1c Lactic Acid 2.60 H* Calcium Total Bilirubin Alkaline Phosphatase Ammonia Troponin T Total Protein Albumin HDL Cholesterol Urine Creatinine Crossmatch 12/05/16 12/05/16 12/05/16 05:00 05:00 05:17 WBC 17.1 H RBC 3.03 L Hgb 8.2 L Hct 25.9 L MCV MCH 27 L MCHC RDW 16.4 H Plt Count 81 L Lymph % (Auto) 1.3 L [place] % (Auto) 9.7 H Lymph # 0.2 L [place] # 1.7 H Seg Neutrophils % 88.9 H Seg Neuts % (Manual) Lymphocytes % (Manual) Monocytes % (Manual) Nucleated RBC % Seg Neutrophils # 15.2 H Seg Neutrophils # Man Lymphocytes # (Manual) Monocytes # (Manual) PT INR APTT Heparin Anti-Xa Level POC ABG pH POC ABG pCO2 POC ABG pO2 Sodium 132 L Potassium Chloride 96.9 L Carbon Dioxide 19 L BUN 120 H Creatinine 4.8 H Glucose 193 H POC Glucose 229 H Hemoglobin A1c Lactic Acid Calcium 8.0 L Total Bilirubin Alkaline Phosphatase Ammonia Troponin T Total Protein Albumin HDL Cholesterol Urine Creatinine Crossmatch 12/05/16 12/05/16 12/05/16 06:00 11:46 17:53 WBC RBC Hgb Hct MCV MCH MCHC RDW Plt Count Lymph % (Auto) [place] % (Auto) Lymph # [place] # Seg Neutrophils % Seg Neuts % (Manual) Lymphocytes % (Manual) Monocytes % (Manual) Nucleated RBC % Seg Neutrophils # Seg Neutrophils # Man Lymphocytes # (Manual) Monocytes # (Manual) PT INR APTT Heparin Anti-Xa Level POC ABG pH POC ABG pCO2 32.5 L POC ABG pO2 124 H Sodium Potassium Chloride Carbon Dioxide BUN Creatinine Glucose POC Glucose 139 H 170 H Hemoglobin A1c Lactic Acid Calcium Total Bilirubin Alkaline Phosphatase Ammonia Troponin T Total Protein Albumin HDL Cholesterol Urine Creatinine Crossmatch 12/05/16 12/06/16 12/06/16 23:24 04:20 05:57 WBC RBC Hgb Hct MCV MCH MCHC RDW Plt Count Lymph % (Auto) [place] % (Auto) Lymph # [place] # Seg Neutrophils % Seg Neuts % (Manual) Lymphocytes % (Manual) Monocytes % (Manual) Nucleated RBC % Seg Neutrophils # Seg Neutrophils # Man Lymphocytes # (Manual) Monocytes # (Manual) PT INR APTT Heparin Anti-Xa Level POC ABG pH POC ABG pCO2 30.3 L POC ABG pO2 122 H Sodium Potassium Chloride Carbon Dioxide BUN Creatinine Glucose POC Glucose 153 H 166 H Hemoglobin A1c Lactic Acid Calcium Total Bilirubin Alkaline Phosphatase Ammonia Troponin T Total Protein Albumin HDL Cholesterol Urine Creatinine Crossmatch 12/06/16 12/06/16 12/06/16 06:00 06:00 11:32 WBC 18.1 H RBC 2.76 L Hgb 7.7 L Hct 23.4 L MCV MCH MCHC RDW 16.6 H Plt Count 62 L Lymph % (Auto) [place] % (Auto) Lymph # [place] # Seg Neutrophils % Seg Neuts % (Manual) 96.0 H Lymphocytes % (Manual) 0 L Monocytes % (Manual) Nucleated RBC % Seg Neutrophils # Seg Neutrophils # Man 17.4 H Lymphocytes # (Manual) 0.0 L Monocytes # (Manual) PT INR APTT Heparin Anti-Xa Level POC ABG pH POC ABG pCO2 POC ABG pO2 Sodium 134 L Potassium Chloride 96.8 L Carbon Dioxide 19 L BUN 117 H Creatinine 4.9 H Glucose 179 H POC Glucose 300 H Hemoglobin A1c Lactic Acid Calcium 8.0 L Total Bilirubin Alkaline Phosphatase Ammonia Troponin T Total Protein Albumin HDL Cholesterol Urine Creatinine Crossmatch 12/06/16 12/06/16 12/06/16 11:33 18:11 23:23 WBC RBC Hgb Hct MCV MCH MCHC RDW Plt Count Lymph % (Auto) [place] % (Auto) Lymph # [place] # Seg Neutrophils % Seg Neuts % (Manual) Lymphocytes % (Manual) Monocytes % (Manual) Nucleated RBC % Seg Neutrophils # Seg Neutrophils # Man Lymphocytes # (Manual) Monocytes # (Manual) PT INR APTT Heparin Anti-Xa Level POC ABG pH POC ABG pCO2 POC ABG pO2 Sodium Potassium Chloride Carbon Dioxide BUN Creatinine Glucose POC Glucose 204 H 246 H 225 H Hemoglobin A1c Lactic Acid Calcium Total Bilirubin Alkaline Phosphatase Ammonia Troponin T Total Protein Albumin HDL Cholesterol Urine Creatinine Crossmatch 12/07/16 12/07/16 12/07/16 04:50 05:19 05:40 WBC 15.6 H RBC 2.71 L Hgb 7.4 L Hct 22.6 L MCV 83 L MCH 27 L MCHC RDW 16.2 H Plt Count 61 L Lymph % (Auto) [place] % (Auto) Lymph # [place] # Seg Neutrophils % Seg Neuts % (Manual) 97.0 H Lymphocytes % (Manual) 0 L Monocytes % (Manual) Nucleated RBC % Seg Neutrophils # Seg Neutrophils # Man 15.1 H Lymphocytes # (Manual) 0.0 L Monocytes # (Manual) PT INR APTT Heparin Anti-Xa Level POC ABG pH POC ABG pCO2 31.3 L POC ABG pO2 Sodium Potassium Chloride Carbon Dioxide BUN Creatinine Glucose POC Glucose 238 H Hemoglobin A1c Lactic Acid Calcium Total Bilirubin Alkaline Phosphatase Ammonia Troponin T Total Protein Albumin HDL Cholesterol Urine Creatinine Crossmatch 12/07/16 12/07/16 12/07/16 05:40 11:43 16:09 WBC RBC Hgb Hct MCV MCH MCHC RDW Plt Count Lymph % (Auto) [place] % (Auto) Lymph # [place] # Seg Neutrophils % Seg Neuts % (Manual) Lymphocytes % (Manual) Monocytes % (Manual) Nucleated RBC % Seg Neutrophils # Seg Neutrophils # Man Lymphocytes # (Manual) Monocytes # (Manual) PT INR APTT Heparin Anti-Xa Level POC ABG pH POC ABG pCO2 POC ABG pO2 Sodium 136 L Potassium Chloride Carbon Dioxide 19 L BUN 122 H Creatinine 5.1 H Glucose 226 H POC Glucose 312 H Hemoglobin A1c Lactic Acid Calcium 7.9 L Total Bilirubin Alkaline Phosphatase Ammonia Troponin T Total Protein Albumin HDL Cholesterol Urine Creatinine Crossmatch See Detail 12/07/16 12/07/16 12/07/16 16:09 17:27 17:31 WBC RBC Hgb 7.0 L Hct 21.0 L MCV MCH MCHC RDW Plt Count Lymph % (Auto) [place] % (Auto) Lymph # [place] # Seg Neutrophils % Seg Neuts % (Manual) Lymphocytes % (Manual) Monocytes % (Manual) Nucleated RBC % Seg Neutrophils # Seg Neutrophils # Man Lymphocytes # (Manual) Monocytes # (Manual) PT INR APTT Heparin Anti-Xa Level POC ABG pH POC ABG pCO2 POC ABG pO2 Sodium Potassium Chloride Carbon Dioxide BUN Creatinine Glucose POC Glucose 312 H 242 H Hemoglobin A1c Lactic Acid Calcium Total Bilirubin Alkaline Phosphatase Ammonia Troponin T Total Protein Albumin HDL Cholesterol Urine Creatinine Crossmatch 12/07/16 12/08/16 12/08/16 23:52 04:00 04:00 WBC 13.2 H RBC 2.50 L Hgb 7.0 L Hct 21.1 L MCV MCH MCHC RDW 16.8 H Plt Count 44 L Lymph % (Auto) 1.5 L [place] % (Auto) 9.1 H Lymph # 0.2 L [place] # 1.2 H Seg Neutrophils % 88.6 H Seg Neuts % (Manual) Lymphocytes % (Manual) Monocytes % (Manual) Nucleated RBC % Seg Neutrophils # 11.7 H Seg Neutrophils # Man Lymphocytes # (Manual) Monocytes # (Manual) PT INR APTT Heparin Anti-Xa Level POC ABG pH POC ABG pCO2 POC ABG pO2 Sodium Potassium Chloride Carbon Dioxide 21 L BUN 127 H Creatinine 5.0 H Glucose 148 H POC Glucose 173 H Hemoglobin A1c Lactic Acid Calcium 8.2 L Total Bilirubin 2.00 H Alkaline Phosphatase 132 H Ammonia Troponin T Total Protein 5.6 L Albumin 2.6 L HDL Cholesterol Urine Creatinine Crossmatch 12/08/16 12/08/16 12/08/16 05:34 09:20 11:50 WBC RBC Hgb 6.9 L Hct 21.4 L MCV MCH MCHC RDW Plt Count Lymph % (Auto) [place] % (Auto) Lymph # [place] # Seg Neutrophils % Seg Neuts % (Manual) Lymphocytes % (Manual) Monocytes % (Manual) Nucleated RBC % Seg Neutrophils # Seg Neutrophils # Man Lymphocytes # (Manual) Monocytes # (Manual) PT INR APTT Heparin Anti-Xa Level POC ABG pH POC ABG pCO2 POC ABG pO2 Sodium Potassium Chloride Carbon Dioxide BUN Creatinine Glucose POC Glucose 134 H Hemoglobin A1c Lactic Acid Calcium Total Bilirubin Alkaline Phosphatase Ammonia 90.0 H Troponin T Total Protein Albumin HDL Cholesterol Urine Creatinine Crossmatch 12/08/16 12/08/16 12/08/16 15:40 17:35 18:20 WBC RBC Hgb 9.2 L Hct 28.1 L D MCV MCH MCHC RDW Plt Count Lymph % (Auto) [place] % (Auto) Lymph # [place] # Seg Neutrophils % Seg Neuts % (Manual) Lymphocytes % (Manual) Monocytes % (Manual) Nucleated RBC % Seg Neutrophils # Seg Neutrophils # Man Lymphocytes # (Manual) Monocytes # (Manual) PT INR APTT Heparin Anti-Xa Level POC ABG pH POC ABG pCO2 POC ABG pO2 Sodium Potassium Chloride Carbon Dioxide BUN Creatinine Glucose POC Glucose 111 H 146 H Hemoglobin A1c Lactic Acid Calcium Total Bilirubin Alkaline Phosphatase Ammonia Troponin T Total Protein Albumin HDL Cholesterol Urine Creatinine Crossmatch 12/09/16 12/09/16 12/09/16 00:10 04:13 05:50 WBC 17.6 H RBC 3.48 L Hgb 9.5 L Hct 29.2 L MCV MCH 27 L MCHC RDW 15.8 H Plt Count 75 L Lymph % (Auto) [place] % (Auto) Lymph # [place] # Seg Neutrophils % Seg Neuts % (Manual) 94.0 H Lymphocytes % (Manual) 2.0 L Monocytes % (Manual) Nucleated RBC % Seg Neutrophils # Seg Neutrophils # Man 16.5 H Lymphocytes # (Manual) 0.4 L Monocytes # (Manual) PT INR APTT Heparin Anti-Xa Level POC ABG pH POC ABG pCO2 POC ABG pO2 107 H Sodium Potassium Chloride Carbon Dioxide BUN Creatinine Glucose POC Glucose 64 L Hemoglobin A1c Lactic Acid Calcium Total Bilirubin Alkaline Phosphatase Ammonia Troponin T Total Protein Albumin HDL Cholesterol Urine Creatinine Crossmatch 12/09/16 12/09/16 12/09/16 05:50 12:16 12:56 WBC RBC Hgb Hct MCV MCH MCHC RDW Plt Count Lymph % (Auto) [place] % (Auto) Lymph # [place] # Seg Neutrophils % Seg Neuts % (Manual) Lymphocytes % (Manual) Monocytes % (Manual) Nucleated RBC % Seg Neutrophils # Seg Neutrophils # Man Lymphocytes # (Manual) Monocytes # (Manual) PT INR APTT Heparin Anti-Xa Level POC ABG pH POC ABG pCO2 34.1 L POC ABG pO2 79 L Sodium Potassium Chloride Carbon Dioxide BUN 92 H Creatinine 3.9 H Glucose 70 L POC Glucose 113 H Hemoglobin A1c Lactic Acid Calcium Total Bilirubin Alkaline Phosphatase Ammonia Troponin T Total Protein Albumin HDL Cholesterol Urine Creatinine Crossmatch 12/09/16 12/09/16 12/10/16 17:52 23:33 05:07 WBC RBC Hgb Hct MCV MCH MCHC RDW Plt Count Lymph % (Auto) [place] % (Auto) Lymph # [place] # Seg Neutrophils % Seg Neuts % (Manual) Lymphocytes % (Manual) Monocytes % (Manual) Nucleated RBC % Seg Neutrophils # Seg Neutrophils # Man Lymphocytes # (Manual) Monocytes # (Manual) PT INR APTT Heparin Anti-Xa Level POC ABG pH POC ABG pCO2 POC ABG pO2 Sodium Potassium Chloride Carbon Dioxide BUN Creatinine Glucose POC Glucose 146 H 150 H 142 H Hemoglobin A1c Lactic Acid Calcium Total Bilirubin Alkaline Phosphatase Ammonia Troponin T Total Protein Albumin HDL Cholesterol Urine Creatinine Crossmatch 12/10/16 12/10/16 12/10/16 06:15 08:30 09:45 WBC RBC Hgb 8.7 L Hct 27.0 L MCV MCH MCHC RDW Plt Count 71 L Lymph % (Auto) [place] % (Auto) Lymph # [place] # Seg Neutrophils % Seg Neuts % (Manual) Lymphocytes % (Manual) Monocytes % (Manual) Nucleated RBC % Seg Neutrophils # Seg Neutrophils # Man Lymphocytes # (Manual) Monocytes # (Manual) PT INR APTT Heparin Anti-Xa Level POC ABG pH 7.508 H 7.558 H POC ABG pCO2 32.8 L 29.1 L POC ABG pO2 72 L Sodium Potassium Chloride Carbon Dioxide BUN Creatinine Glucose POC Glucose Hemoglobin A1c Lactic Acid Calcium Total Bilirubin Alkaline Phosphatase Ammonia Troponin T Total Protein Albumin HDL Cholesterol Urine Creatinine Crossmatch 12/10/16 12/10/16 12/10/16 12:06 18:25 23:44 WBC RBC Hgb Hct MCV MCH MCHC RDW Plt Count Lymph % (Auto) [place] % (Auto) Lymph # [place] # Seg Neutrophils % Seg Neuts % (Manual) Lymphocytes % (Manual) Monocytes % (Manual) Nucleated RBC % Seg Neutrophils # Seg Neutrophils # Man Lymphocytes # (Manual) Monocytes # (Manual) PT INR APTT Heparin Anti-Xa Level POC ABG pH POC ABG pCO2 POC ABG pO2 Sodium Potassium Chloride Carbon Dioxide BUN Creatinine Glucose POC Glucose 264 H 126 H 195 H Hemoglobin A1c Lactic Acid Calcium Total Bilirubin Alkaline Phosphatase Ammonia Troponin T Total Protein Albumin HDL Cholesterol Urine Creatinine Crossmatch 12/11/16 12/11/16 12/11/16 05:36 09:05 11:49 WBC RBC Hgb Hct MCV MCH MCHC RDW Plt Count Lymph % (Auto) [place] % (Auto) Lymph # [place] # Seg Neutrophils % Seg Neuts % (Manual) Lymphocytes % (Manual) Monocytes % (Manual) Nucleated RBC % Seg Neutrophils # Seg Neutrophils # Man Lymphocytes # (Manual) Monocytes # (Manual) PT INR APTT Heparin Anti-Xa Level POC ABG pH 7.517 H POC ABG pCO2 32.2 L POC ABG pO2 Sodium Potassium Chloride Carbon Dioxide BUN Creatinine Glucose POC Glucose 196 H 187 H Hemoglobin A1c Lactic Acid Calcium Total Bilirubin Alkaline Phosphatase Ammonia Troponin T Total Protein Albumin HDL Cholesterol Urine Creatinine Crossmatch 12/11/16 12/12/16 12/12/16 18:02 00:01 05:23 WBC RBC Hgb Hct MCV MCH MCHC RDW Plt Count Lymph % (Auto) [place] % (Auto) Lymph # [place] # Seg Neutrophils % Seg Neuts % (Manual) Lymphocytes % (Manual) Monocytes % (Manual) Nucleated RBC % Seg Neutrophils # Seg Neutrophils # Man Lymphocytes # (Manual) Monocytes # (Manual) PT INR APTT Heparin Anti-Xa Level POC ABG pH POC ABG pCO2 POC ABG pO2 Sodium Potassium Chloride Carbon Dioxide BUN Creatinine Glucose POC Glucose 257 H 203 H 274 H Hemoglobin A1c Lactic Acid Calcium Total Bilirubin Alkaline Phosphatase Ammonia Troponin T Total Protein Albumin HDL Cholesterol Urine Creatinine Crossmatch 12/12/16 12/12/16 12/12/16 06:30 06:30 12:03 WBC 11.3 H RBC 3.30 L Hgb 9.0 L Hct 28.2 L MCV MCH 27 L MCHC RDW 16.8 H Plt Count 88 L Lymph % (Auto) [place] % (Auto) Lymph # [place] # Seg Neutrophils % Seg Neuts % (Manual) 99.0 H Lymphocytes % (Manual) 0 L Monocytes % (Manual) Nucleated RBC % 1.0 H Seg Neutrophils # Seg Neutrophils # Man 11.2 H Lymphocytes # (Manual) 0.0 L Monocytes # (Manual) PT INR APTT Heparin Anti-Xa Level POC ABG pH POC ABG pCO2 POC ABG pO2 Sodium 136 L Potassium Chloride 97.1 L Carbon Dioxide BUN 70 H Creatinine 3.4 H Glucose 256 H POC Glucose 190 H Hemoglobin A1c Lactic Acid Calcium 8.0 L Total Bilirubin Alkaline Phosphatase Ammonia Troponin T Total Protein Albumin HDL Cholesterol Urine Creatinine Crossmatch 12/12/16 12/13/16 12/13/16 16:00 00:02 04:30 WBC RBC Hgb 8.4 L Hct 25.8 L MCV MCH MCHC RDW Plt Count Lymph % (Auto) [place] % (Auto) Lymph # [place] # Seg Neutrophils % Seg Neuts % (Manual) Lymphocytes % (Manual) Monocytes % (Manual) Nucleated RBC % Seg Neutrophils # Seg Neutrophils # Man Lymphocytes # (Manual) Monocytes # (Manual) PT INR APTT Heparin Anti-Xa Level POC ABG pH POC ABG pCO2 POC ABG pO2 Sodium Potassium Chloride Carbon Dioxide BUN Creatinine Glucose POC Glucose 235 H 113 H Hemoglobin A1c Lactic Acid Calcium Total Bilirubin Alkaline Phosphatase Ammonia Troponin T Total Protein Albumin HDL Cholesterol Urine Creatinine Crossmatch 12/13/16 12/13/16 12/13/16 04:30 12:09 17:52 WBC RBC Hgb Hct MCV MCH MCHC RDW Plt Count Lymph % (Auto) [place] % (Auto) Lymph # [place] # Seg Neutrophils % Seg Neuts % (Manual) Lymphocytes % (Manual) Monocytes % (Manual) Nucleated RBC % Seg Neutrophils # Seg Neutrophils # Man Lymphocytes # (Manual) Monocytes # (Manual) PT INR APTT Heparin Anti-Xa Level POC ABG pH POC ABG pCO2 POC ABG pO2 Sodium Potassium Chloride Carbon Dioxide BUN 53 H Creatinine 2.9 H Glucose POC Glucose 179 H 126 H Hemoglobin A1c Lactic Acid Calcium 7.7 L Total Bilirubin Alkaline Phosphatase Ammonia Troponin T Total Protein Albumin HDL Cholesterol Urine Creatinine Crossmatch 12/14/16 12/14/16 12/14/16 00:11 05:00 05:00 WBC RBC 2.92 L Hgb 8.1 L Hct 24.8 L MCV MCH MCHC RDW 16.9 H Plt Count 66 L Lymph % (Auto) 2.2 L [place] % (Auto) 10.3 H Lymph # 0.2 L [place] # 1.0 H Seg Neutrophils % 87.1 H Seg Neuts % (Manual) Lymphocytes % (Manual) Monocytes % (Manual) Nucleated RBC % Seg Neutrophils # 8.5 H Seg Neutrophils # Man Lymphocytes # (Manual) Monocytes # (Manual) PT INR APTT Heparin Anti-Xa Level POC ABG pH POC ABG pCO2 POC ABG pO2 Sodium Potassium Chloride Carbon Dioxide BUN 68 H Creatinine 3.0 H Glucose 155 H POC Glucose 121 H Hemoglobin A1c Lactic Acid Calcium 8.0 L Total Bilirubin Alkaline Phosphatase Ammonia Troponin T Total Protein Albumin HDL Cholesterol Urine Creatinine Crossmatch 12/14/16 06:33 WBC RBC Hgb Hct MCV MCH MCHC RDW Plt Count Lymph % (Auto) [place] % (Auto) Lymph # [place] # Seg Neutrophils % Seg Neuts % (Manual) Lymphocytes % (Manual) Monocytes % (Manual) Nucleated RBC % Seg Neutrophils # Seg Neutrophils # Man Lymphocytes # (Manual) Monocytes # (Manual) PT INR APTT Heparin Anti-Xa Level POC ABG pH POC ABG pCO2 POC ABG pO2 Sodium Potassium Chloride Carbon Dioxide BUN Creatinine Glucose POC Glucose 129 H Hemoglobin A1c Lactic Acid Calcium Total Bilirubin Alkaline Phosphatase Ammonia Troponin T Total Protein Albumin HDL Cholesterol Urine Creatinine Crossmatch
[2016-12-14] MEDS ORDERED: COREG PO SCH (13:17)
[2016-12-14] MEDS ORDERED: COREG PO ONE (15:00)
--- NOTE | 2016-12-14 15:22 | Progress Note ---
Assessment and Plan Assessment and plan: S/P in house cardiac arrest - Patient extubated on 12/11 - Patient is drowsy - On NG tube feeding, Speech evaluations Bilateral DM leg ulcer - treated with IV rocephin for 10days - On topical antibacterials DM - Sliding scale insulin Acute on chronic kidney disease - patient is on dialysis MWF - Nephrology following Hypertension - Doesn't need antihypertensive medication CAD Chronic systolic heart failure a.fib - Low-dose carvedilol - Cardiology following Thrombocytopenia - We will monitor - Hem/Onc consult appreciated GI bleed - Secondary to gastritis/tendinitis - Continue PPI - H&H stable Diarrhea - C. difficile nagative DVT prophylaxis - SCD Disposition - Continue inpatient care History Interval history: Patient was seen and evaluated this morning, patient is drowsy. Hospitalist Physical - Physical exam Narrative exam: Patient extubated on 12/11. The patient appeared well nourished and normally developed. Vital signs as documented. Head exam is unremarkable. No scleral icterus . Neck is without jugular venous distension, thyromegaly, or carotid bruits. Lungs are clear to auscultation. Cardiac exam reveals regular rate and Rhythm. First and second heart sounds normal. No murmurs, rubs or gallops. Abdominal exam reveals normal bowel sounds, no masses, no organomegaly and no aortic enlargement. Extremities significant for bilateral leg ulcer around the calf area, clean dressing around it. Edema in the upper extremities. [employer]: drowsy. - Constitutional Vitals: Temp Pulse Resp BP Pulse Ox 98.3 F 74 16 144/73 94 12/14/16 09:16 12/14/16 09:28 12/14/16 09:16 12/14/16 09:28 12/14/16 09:16 General appearance: Present: no acute distress, other (orally intubated on ventilatory support and sedated) Results - Labs CBC & Chem 7: 12/14/16 05:00 12/14/16 05:00 Labs: Laboratory Last Values WBC 9.7 K/mm3 (4.5-11.0) 12/14/16 05:00 RBC 2.92 M/mm3 (3.65-5.03) L 12/14/16 05:00 Hgb 8.1 gm/dl (11.8-15.2) L 12/14/16 05:00 Hct 24.8 % (35.5-45.6) L 12/14/16 05:00 MCV 85 fl (84-94) 12/14/16 05:00 MCH 28 pg (28-32) 12/14/16 05:00 MCHC 33 % (32-34) 12/14/16 05:00 RDW 16.9 % (13.2-15.2) H 12/14/16 05:00 Plt Count 66 K/mm3 (140-440) L 12/14/16 05:00 Lymph % (Auto) 2.2 % (13.4-35.0) L 12/14/16 05:00 [place] % (Auto) 10.3 % (0.0-7.3) H 12/14/16 05:00 Eos % (Auto) 0.4 % (0.0-4.3) 12/14/16 05:00 Baso % (Auto) 0.0 % (0.0-1.8) 12/14/16 05:00 Lymph # 0.2 K/mm3 (1.2-5.4) L 12/14/16 05:00 [place] # 1.0 K/mm3 (0.0-0.8) H 12/14/16 05:00 Eos # 0.0 K/mm3 (0.0-0.4) 12/14/16 05:00 Baso # 0.0 K/mm3 (0.0-0.1) 12/14/16 05:00 Add Manual Diff Complete 12/12/16 06:30 Total Counted 100 12/12/16 06:30 Seg Neutrophils % 87.1 % (40.0-70.0) H 12/14/16 05:00 Seg Neuts % (Manual) 99.0 % (40.0-70.0) H 12/12/16 06:30 Band Neutrophils % 0 % 12/12/16 06:30 Lymphocytes % (Manual) 0 % (13.4-35.0) L 12/12/16 06:30 Reactive Lymphs % (Man) 0 % 12/12/16 06:30 Monocytes % (Manual) 1.0 % (0.0-7.3) 12/12/16 06:30 Eosinophils % (Manual) 0 % (0.0-4.3) 12/12/16 06:30 Basophils % (Manual) 0 % (0.0-1.8) 12/12/16 06:30 Metamyelocytes % 0 % 12/12/16 06:30 Myelocytes % 0 % 12/12/16 06:30 Promyelocytes % 0 % 12/12/16 06:30 Blast Cells % 0 % 12/12/16 06:30 Nucleated RBC % 1.0 % (0.0-0.9) H 12/12/16 06:30 Seg Neutrophils # 8.5 K/mm3 (1.8-7.7) H 12/14/16 05:00 Seg Neutrophils # Man 11.2 K/mm3 (1.8-7.7) H 12/12/16 06:30 Band Neutrophils # 0.0 K/mm3 12/12/16 06:30 Lymphocytes # (Manual) 0.0 K/mm3 (1.2-5.4) L 12/12/16 06:30 Abs React Lymphs (Man) 0.0 K/mm3 12/12/16 06:30 Monocytes # (Manual) 0.1 K/mm3 (0.0-0.8) 12/12/16 06:30 Eosinophils # (Manual) 0.0 K/mm3 (0.0-0.4) 12/12/16 06:30 Basophils # (Manual) 0.0 K/mm3 (0.0-0.1) 12/12/16 06:30 Metamyelocytes # 0.0 K/mm3 12/12/16 06:30 Myelocytes # 0.0 K/mm3 12/12/16 06:30 Promyelocytes # 0.0 K/mm3 12/12/16 06:30 Blast Cells # 0.0 K/mm3 12/12/16 06:30 WBC Morphology Not Reportable 12/12/16 06:30 Hypersegmented Neuts Not Reportable 12/12/16 06:30 Hyposegmented Neuts Not Reportable 12/12/16 06:30 Hypogranular Neuts Not Reportable 12/12/16 06:30 Smudge Cells Not Reportable 12/12/16 06:30 Toxic Granulation Not Reportable 12/12/16 06:30 Toxic Vacuolation Not Reportable 12/12/16 06:30 Dohle Bodies Not Reportable 12/12/16 06:30 Pelger-Huet Anomaly Not Reportable 12/12/16 06:30 Demetra Rods Not Reportable 12/12/16 06:30 Platelet Estimate Consistent w auto 12/12/16 06:30 Clumped Platelets Not Reportable 12/12/16 06:30 Plt Clumps, EDTA Not Reportable 12/12/16 06:30 Large Platelets Not Reportable 12/12/16 06:30 Giant Platelets Not Reportable 12/12/16 06:30 Platelet Satelliting Not Reportable 12/12/16 06:30 Plt Morphology Comment Not Reportable 12/12/16 06:30 RBC Morphology Not Reportable 12/12/16 06:30 Dimorphic RBCs Not Reportable 12/12/16 06:30 Polychromasia Not Reportable 12/12/16 06:30 Hypochromasia Few 12/12/16 06:30 Poikilocytosis Not Reportable 12/12/16 06:30 Anisocytosis 1+ 12/12/16 06:30 Microcytosis Not Reportable 12/12/16 06:30 Macrocytosis Not Reportable 12/12/16 06:30 Spherocytes Not Reportable 12/12/16 06:30 Pappenheimer Bodies Not Reportable 12/12/16 06:30 Sickle Cells Not Reportable 12/12/16 06:30 Target Cells Few 12/12/16 06:30 Tear Drop Cells Not Reportable 12/12/16 06:30 Ovalocytes Not Reportable 12/12/16 06:30 Helmet Cells Not Reportable 12/12/16 06:30 Don-Lawtey Bodies Not Reportable 12/12/16 06:30 [place] Rings Not Reportable 12/12/16 06:30 [place] Cells Not Reportable 12/12/16 06:30 Bite Cells Not Reportable 12/12/16 06:30 Crenated Cell Not Reportable 12/12/16 06:30 Elliptocytes Not Reportable 12/12/16 06:30 Acanthocytes (Spur) Not Reportable 12/12/16 06:30 Rouleaux Not Reportable 12/12/16 06:30 Hemoglobin C Crystals Not Reportable 12/12/16 06:30 Schistocytes Not Reportable 12/12/16 06:30 Malaria parasites Not Reportable 12/12/16 06:30 Romeo Bodies Not Reportable 12/12/16 06:30 Hem Pathologist Commnt No 12/12/16 06:30 PT 16.6 Sec. (12.2-14.9) H 12/02/16 19:20 INR 1.27 (0.87-1.13) H 12/02/16 19:20 APTT 45.4 Sec. (24.2-36.6) H 12/02/16 19:20 Heparin Anti-Xa Level < 0.10 U.I./ml (0.3-0.7) L 12/03/16 01:15 POC ABG pH 7.517 (7.35-7.45) H 12/11/16 09:05 POC ABG pCO2 32.2 (35-45) L 12/11/16 09:05 POC ABG pO2 97 (80-105) 12/11/16 09:05 POC ABG HCO3 26.1 12/11/16 09:05 POC ABG Total CO2 27 12/11/16 09:05 POC ABG O2 Sat 98 12/11/16 09:05 POC ABG Base Excess 3 12/11/16 09:05 FiO2 30 % 12/11/16 09:05 Sodium 139 mmol/L (137-145) 12/14/16 05:00 Potassium 4.8 mmol/L (3.6-5.0) 12/14/16 05:00 Chloride 98.7 mmol/L (98-107) 12/14/16 05:00 Carbon Dioxide 27 mmol/L (22-30) 12/14/16 05:00 Anion Gap 18 mmol/L 12/14/16 05:00 BUN 68 mg/dL (9-20) H 12/14/16 05:00 Creatinine 3.0 mg/dL (0.8-1.5) H 12/14/16 05:00 Estimated GFR 25 ml/min 12/14/16 05:00 BUN/Creatinine Ratio 22.66 % 12/14/16 05:00 Glucose 155 mg/dL (75-100) H 12/14/16 05:00 POC Glucose 129 (70-105) H 12/14/16 06:33 Hemoglobin A1c 10.6 % (4-6) H 11/28/16 16:02 Lactic Acid 2.60 mmol/L (0.7-2.0) H* 12/04/16 13:22 Calcium 8.0 mg/dL (8.4-10.2) L 12/14/16 05:00 Magnesium 2.10 mg/dL (1.7-2.3) 12/08/16 04:00 Total Bilirubin 2.00 mg/dL (0.1-1.2) H 12/08/16 04:00 AST 35 units/L (5-40) 12/08/16 04:00 ALT 37 units/L (7-56) 12/08/16 04:00 Alkaline Phosphatase 132 units/L (35-129) H 12/08/16 04:00 Ammonia 90.0 umol/L (25-60) H 12/08/16 11:50 Total Creatine Kinase 59 units/L (55-170) 12/02/16 19:23 CK-MB (CK-2) 1.9 ng/mL (0.0-4.0) 12/02/16 19:23 CK-MB (CK-2) Rel Index 3.2 (0-4) 12/02/16 19:23 Troponin T 0.098 ng/mL (0.00-0.029) H 12/03/16 08:01 Total Protein 5.6 g/dL (6.3-8.2) L 12/08/16 04:00 Albumin 2.6 g/dL (3.9-5) L 12/08/16 04:00 Albumin/Globulin Ratio 0.9 % 12/08/16 04:00 Triglycerides 72 mg/dL (2-149) 11/30/16 20:37 Cholesterol 132 mg/dL (50-199) 11/30/16 20:37 LDL Cholesterol Direct 82 mg/dL (50-130) 11/30/16 20:37 HDL Cholesterol 36 mg/dL (40-59) L 11/30/16 20:37 Cholesterol/HDL Ratio 3.66 % 11/30/16 20:37 TSH 0.764 mlU/mL (0.270-4.200) 12/08/16 11:50 Urine Color Yellow (Yellow) 11/30/16 10:00 Urine Turbidity Clear (Clear) 11/30/16 10:00 Urine pH 6.0 (5.0-7.0) 11/30/16 10:00 Ur Specific [place] 1.018 (1.003-1.030) 11/30/16 10:00 Urine Protein 30 mg/dl mg/dL (Negative) 11/30/16 10:00 Urine Glucose (UA) Neg mg/dL (Negative) 11/30/16 10:00 Urine Ketones Neg mg/dL (Negative) 11/30/16 10:00 Urine Blood Neg (Negative) 11/30/16 10:00 Urine Nitrite Neg (Negative) 11/30/16 10:00 Urine Bilirubin Neg (Negative) 11/30/16 10:00 Urine Urobilinogen < 2.0 mg/dL (<2.0) 11/30/16 10:00 Ur Leukocyte Esterase Tr (Negative) 11/30/16 10:00 Urine WBC (Auto) 2.0 /HPF (0.0-6.0) 11/30/16 10:00 Urine RBC (Auto) < 1.0 /HPF (0.0-6.0) 11/30/16 10:00 U Epithel Cells (Auto) < 1.0 /HPF (0-13.0) 11/30/16 10:00 Urine Eosinophils None seen (None Seen) 11/30/16 10:00 Urine Creatinine 78.6 mg/dL (0.1-20.0) H 11/30/16 10:00 Urine Sodium 10 mEq/L 11/30/16 10:00 Vancomycin Trough 19.0 ug/mL (5.0-20.0) 12/03/16 06:04 Random Vancomycin 24.7 ug/mL (0-40.0) 12/05/16 05:00 Hepatitis A IgM Ab Non-reactive (NonReactive) 12/08/16 12:20 Hep Bs Antigen Non-reactive (Negative) 12/08/16 12:20 Hep B Core IgM Ab Non-reactive (NonReactive) 12/08/16 12:20 Hepatitis C Antibody Non-reactive (NonReactive) 12/08/16 12:20 Blood Type B POSITIVE 12/07/16 16:09 Antibody Screen TNR 12/07/16 16:09 RHONDA Antibody Screen Negative 12/07/16 16:09 Crossmatch See Detail 12/07/16 16:09
[2016-12-14] MEDS ORDERED: NACL 0.9 (PRIMING MACHINE ONLY DIALYSIS) MC ONE (15:51)
[2016-12-14] MEDS: HEPARIN IV PRN (17:15)
[2016-12-15] MEDS: TYLENOL PO PRN (00:15)
[2016-12-15] MEDS: PROTONIX FEEDTUBE SCH ×3 (00:15→22:45)
[2016-12-15] MEDS: HALDOL IV PRN (00:16)
[2016-12-15] MEDS: COREG PO SCH ×3 (00:16→22:45)
[2016-12-15] MEDS: NOVOLOG SUB-Q SCH ×8 (00:33→18:59)
[2016-12-15] MEDS: XOPENEX IH SCH ×3 (07:42→22:44)
[2016-12-15] MEDS: DAKIN'S HALF STRENGTH TP SCH ×3 (08:00→23:23)
[2016-12-15 08:30] LABS: BUN/Creatinine Ratio 17.93; Calcium 7.7 mg/dL (8.4-10.2); Chloride 96.5 mmol/L (98-107); Potassium 4.8 mmol/L (3.6-5.0)
[2016-12-15] MEDS: TRIPLE ANTIBIOTIC TP SCH (10:07)
[2016-12-15] MEDS: LEVEMIR SUB-Q SCH (10:08)
--- NOTE | 2016-12-15 10:11 | Progress Note ---
Assessment and Plan Acute respiratory failure-->extubated 12/11 management per pulmonary Status post cardiac arrest Acute on chronic systolic heart failure Echo 12/03/16: EF 15-20%, restrictive filling patten, mild-moderate MR dialysis per nephrology continue coreg 6.25mg BID Ccrdiomyopathy s/p AICD Coronary artery disease Peripheral vascular disease with left leg ulcer Hypertension Hyperlipidemia Diabetes End-stage renal disease on hemodialysis Anemia secondary to GI bleed The patient has been seen in conjunction with Dr. Fowler who agrees with the assessment and plan of care. Subjective Date of service: 12/15/16 Principal diagnosis: bilateral leg wounds; TREMAINE Interval history: The patient is lethargic. Opens eyes, no verbal response. Paced rhythm on the monitor. Objective Last Vital Signs Temp 98.7 F 12/15/16 10:14 Pulse 86 12/15/16 10:14 Resp 18 12/15/16 10:14 BP 100/50 12/15/16 10:14 Pulse Ox 95 12/15/16 10:14 - Physical Examination General: No Apparent Distress (lethargic but arousable), Other HEENT: Positive: Normocephaly, Mucus Membranes Moist Neck: Positive: neck supple, trachea midline Cardiac: Positive: Reg Rate and Rhythm, S1/S2 Lungs: Positive: Rhonchi Neuro: Positive: Other (lethargic but arousable) Abdomen: Positive: Soft, Active Bowel Sounds Skin: Positive: Clear, Other (Multiple ulcers in the legs - Dressing in situ.). Negative: Rash Musculoskeletal: other (Dressing in situ (multiple ulcers in the legs).) Extremities: Absent: lower extr. pulses, edema (bilateral LE dressings intact) - Labs and Meds Comprehensive Metabolic Panel 12/15/16 Range/Units 07:33 Sodium 134 L (137-145) mmol/L Potassium 4.8 (3.6-5.0) mmol/L Chloride 96.5 L (98-107) mmol/L Carbon Dioxide 25 (22-30) mmol/L BUN 52 H (9-20) mg/dL Creatinine 2.9 H (0.8-1.5) mg/dL Glucose 190 H (75-100) mg/dL Calcium 7.7 L (8.4-10.2) mg/dL - Imaging and Cardiology EKG: report reviewed, image reviewed (12/03/2016 severe LV dysfunction by ventricle dysfunction EF 15-20% mild to moderate mitral regurgitation mild to moderate tricuspid regurgitation with pulmonary hypertension) Echo: report reviewed (12/03/16: EF 15-20%, restrictive filling patten, mild- moderate MR), image reviewed - Telemetry EKG Rhythm: Paced
--- NOTE | 2016-12-15 10:27 | Progress Note ---
Subjective Principal diagnosis: bilateral leg wounds; TREMAINE Interval history: Patient was seen today for follow-up on multiple renal related issues Events noted No acute distress Vitals labs intake output medications reviewed Social history: Reviewed Family history: Reviewed Physical examination Vitals: Reviewed HEENT: Oral mucosa moist Neck: Supple no JVD Chest: Clear to auscultation no crackles Heart: Regular rate and rhythm S1 and S2 heard Abdomen: Soft nontender bowel sounds present Extremity: Mild edema dry skin Dermatology; dry skin Psychiatry: No evidence of agitation or aggression Assessment and plan; Acute kidney injury in a patient who is currently oliguric/no significant improvement in renal function Continue with renal replacement therapy at least 3-5 times per week depending on how patients tolerate Respiratory failure currently extubated as of December 11 Back cardiomyopathy with ejection fraction of 15-20% status post cardiac arrest currently being followed by cardiology Status post AICD placement with prior history of PAD CAD hypertension diabetes Monitor dialysis related labs Multiorgan failure overall prognosis appears to be very poor high mortality risk this has been discussed with patient's as well Continue with supportive care dialysis as tolerated Primary team to discuss with family about goals of care Periodically monitor renal related labs We'll continue to follow and make recommendation from renal standpoin Objective - Vital Signs Vital signs: Vital Signs - 12hr 12/14/16 12/15/16 12/15/16 23:54 00:15 00:16 Temperature 98.6 F Pulse Rate 110 H Pulse Rate [ 88 From Monitor] Respiratory 22 22 Rate Blood Pressure 110/77 Blood Pressure 110/77 [Left Arm] O2 Sat by Pulse 99 Oximetry 12/15/16 12/15/16 12/15/16 00:25 05:59 08:22 Temperature 97.9 F 98.4 F Pulse Rate 82 Pulse Rate [ 86 89 From Monitor] Respiratory 20 22 Rate Blood Pressure Blood Pressure 112/58 94/52 [Left Arm] O2 Sat by Pulse 99 100 Oximetry 12/15/16 12/15/16 12/15/16 09:20 10:08 10:14 Temperature 98.7 F 98.7 F Pulse Rate 86 Pulse Rate [ 86 86 From Monitor] Respiratory 20 18 Rate Blood Pressure 100/50 Blood Pressure 100/50 100/50 [Left Arm] O2 Sat by Pulse 95 95 Oximetry - Lab 12/14/16 05:00 12/15/16 07:33 Most recent lab results Calcium 7.7 mg/dL (8.4-10.2) L 12/15/16 07:33 Magnesium 2.10 mg/dL (1.7-2.3) 12/08/16 04:00 Urine Creatinine 78.6 mg/dL (0.1-20.0) H 11/30/16 10:00 Urine Sodium 10 mEq/L 11/30/16 10:00
--- NOTE | 2016-12-15 13:29 | Progress Note ---
Assessment and Plan 71 y/o male with cardiac arrest, asystole with unknown down time and ROSC 1. Pulmonary is not major issue at this point. Patient does have other organ systems that are in failure or failing which contributed to his acute respiratory failure and requiring mechanical ventilation. His sats have been stable on nasal cannula but he is at risk for aspiration given his poor mental state and weakness with inability to clear secretions. This was discussed with the daughter. She wants to speak with all physicians to have a better understanding of his overall care. Will see as needed. Call if questions. Subjective Date of service: 12/15/16 Principal diagnosis: bilateral leg wounds; TREMAINE Interval history: Slightly more awake today but still not responding as he did on Monday. Daughter at bedside. First time meeting her as she usually comes in the evenings. Upset as she received bad news from [facility]. Objective Vital Signs - 12hr 12/15/16 12/15/16 12/15/16 05:59 07:42 07:52 Temperature 98.4 F Pulse Rate Pulse Rate [ 79 83 Anterior Bilateral Throughout] Pulse Rate [ 89 From Monitor] Respiratory 22 Rate Respiratory 20 20 Rate [Anterior Bilateral Throughout] Blood Pressure Blood Pressure 94/52 [Left Arm] O2 Sat by Pulse 100 98 Oximetry 12/15/16 12/15/16 12/15/16 08:22 09:20 10:00 Temperature 98.7 F Pulse Rate 82 Pulse Rate [ Anterior Bilateral Throughout] Pulse Rate [ 86 86 From Monitor] Respiratory 20 20 Rate Respiratory Rate [Anterior Bilateral Throughout] Blood Pressure Blood Pressure 100/50 [Left Arm] O2 Sat by Pulse 95 95 Oximetry 12/15/16 12/15/16 10:08 10:14 Temperature 98.7 F Pulse Rate 86 Pulse Rate [ Anterior Bilateral Throughout] Pulse Rate [ 86 From Monitor] Respiratory 18 Rate Respiratory Rate [Anterior Bilateral Throughout] Blood Pressure 100/50 Blood Pressure 100/50 [Left Arm] O2 Sat by Pulse 95 Oximetry Constitutional: alert, other (does not follow commands) Eyes: other (pupils reactive and equal) ENT: oropharynx dry Neck: supple, no JVD Ascultation: Bilateral: clear, diminished breath sounds, rales (anteriorly), rhonchi Percussion: Bilateral: not dull Tactile fremitus: Bilateral: other (unable to assess as patient will not follow commands) Cardiovascular: regular rate and rhythm Gastrointestinal: normoactive bowel sounds, soft, non-distended Integumentary: normal Extremities: cool, edema (right arm edema), other (leg ulcers covered) Neurologic: pupils equal and round, other (moving spontaneously,RASS 0-1) CBC and BMP: 12/14/16 05:00 12/15/16 07:33 ABG, PT/INR, D-dimer: ABG POC ABG pH 7.517 (7.35-7.45) H 12/11/16 09:05 POC ABG pCO2 32.2 (35-45) L 12/11/16 09:05 POC ABG pO2 97 (80-105) 12/11/16 09:05 POC ABG HCO3 26.1 12/11/16 09:05 POC ABG Total CO2 27 12/11/16 09:05 POC ABG O2 Sat 98 12/11/16 09:05 PT/INR, D-dimer PT 16.6 Sec. (12.2-14.9) H 12/02/16 19:20 INR 1.27 (0.87-1.13) H 12/02/16 19:20 Abnormal lab findings: Abnormal Labs 11/28/16 11/28/16 11/28/16 14:16 16:02 16:02 WBC RBC Hgb Hct MCV MCH MCHC RDW Plt Count Lymph % (Auto) [place] % (Auto) Lymph # [place] # Seg Neutrophils % Seg Neuts % (Manual) Lymphocytes % (Manual) Monocytes % (Manual) Nucleated RBC % Seg Neutrophils # Seg Neutrophils # Man Lymphocytes # (Manual) Monocytes # (Manual) PT 17.3 H INR 1.42 H APTT 38.0 H Heparin Anti-Xa Level POC ABG pH POC ABG pCO2 POC ABG pO2 Sodium Potassium 3.3 L Chloride 96.0 L Carbon Dioxide BUN 100 H Creatinine 3.4 H Glucose 235 H POC Glucose 500 H Hemoglobin A1c Lactic Acid Calcium Total Bilirubin Alkaline Phosphatase Ammonia Troponin T Total Protein Albumin HDL Cholesterol Urine Creatinine Crossmatch 11/28/16 11/28/16 11/29/16 16:02 21:30 05:50 WBC RBC Hgb Hct MCV MCH MCHC RDW Plt Count Lymph % (Auto) [place] % (Auto) Lymph # [place] # Seg Neutrophils % Seg Neuts % (Manual) Lymphocytes % (Manual) Monocytes % (Manual) Nucleated RBC % Seg Neutrophils # Seg Neutrophils # Man Lymphocytes # (Manual) Monocytes # (Manual) PT INR APTT Heparin Anti-Xa Level POC ABG pH POC ABG pCO2 POC ABG pO2 Sodium Potassium Chloride Carbon Dioxide BUN Creatinine Glucose POC Glucose 68 L 40 L Hemoglobin A1c 10.6 H Lactic Acid Calcium Total Bilirubin Alkaline Phosphatase Ammonia Troponin T Total Protein Albumin HDL Cholesterol Urine Creatinine Crossmatch 11/29/16 11/29/16 11/29/16 06:33 08:37 08:37 WBC RBC Hgb 10.2 L Hct 30.9 L MCV MCH MCHC RDW 16.0 H Plt Count 104 L Lymph % (Auto) 2.4 L [place] % (Auto) 8.5 H Lymph # 0.2 L [place] # 0.9 H Seg Neutrophils % 89.0 H Seg Neuts % (Manual) Lymphocytes % (Manual) Monocytes % (Manual) Nucleated RBC % Seg Neutrophils # 9.2 H Seg Neutrophils # Man Lymphocytes # (Manual) Monocytes # (Manual) PT INR APTT Heparin Anti-Xa Level POC ABG pH POC ABG pCO2 POC ABG pO2 Sodium Potassium Chloride Carbon Dioxide BUN 95 H Creatinine 2.9 H Glucose POC Glucose 57 L Hemoglobin A1c Lactic Acid Calcium Total Bilirubin Alkaline Phosphatase Ammonia Troponin T Total Protein Albumin HDL Cholesterol Urine Creatinine Crossmatch 11/29/16 11/29/16 11/29/16 11:41 12:48 15:44 WBC RBC Hgb Hct MCV MCH MCHC RDW Plt Count Lymph % (Auto) [place] % (Auto) Lymph # [place] # Seg Neutrophils % Seg Neuts % (Manual) Lymphocytes % (Manual) Monocytes % (Manual) Nucleated RBC % Seg Neutrophils # Seg Neutrophils # Man Lymphocytes # (Manual) Monocytes # (Manual) PT INR APTT Heparin Anti-Xa Level POC ABG pH POC ABG pCO2 POC ABG pO2 Sodium Potassium Chloride Carbon Dioxide BUN Creatinine Glucose POC Glucose 48 L 143 H 138 H Hemoglobin A1c Lactic Acid Calcium Total Bilirubin Alkaline Phosphatase Ammonia Troponin T Total Protein Albumin HDL Cholesterol Urine Creatinine Crossmatch 11/29/16 11/29/16 11/30/16 21:04 22:26 06:11 WBC RBC Hgb Hct MCV MCH MCHC RDW Plt Count Lymph % (Auto) [place] % (Auto) Lymph # [place] # Seg Neutrophils % Seg Neuts % (Manual) Lymphocytes % (Manual) Monocytes % (Manual) Nucleated RBC % Seg Neutrophils # Seg Neutrophils # Man Lymphocytes # (Manual) Monocytes # (Manual) PT INR APTT Heparin Anti-Xa Level POC ABG pH POC ABG pCO2 POC ABG pO2 Sodium Potassium Chloride Carbon Dioxide BUN Creatinine Glucose POC Glucose 49 L 165 H 121 H Hemoglobin A1c Lactic Acid Calcium Total Bilirubin Alkaline Phosphatase Ammonia Troponin T Total Protein Albumin HDL Cholesterol Urine Creatinine Crossmatch 11/30/16 11/30/16 11/30/16 08:53 08:53 10:00 WBC RBC Hgb 10.9 L Hct 33.2 L MCV MCH MCHC RDW 16.3 H Plt Count 96 L Lymph % (Auto) [place] % (Auto) Lymph # [place] # Seg Neutrophils % Seg Neuts % (Manual) 91.0 H Lymphocytes % (Manual) 2.0 L Monocytes % (Manual) Nucleated RBC % Seg Neutrophils # Seg Neutrophils # Man 9.3 H Lymphocytes # (Manual) 0.2 L Monocytes # (Manual) PT INR APTT Heparin Anti-Xa Level POC ABG pH POC ABG pCO2 POC ABG pO2 Sodium Potassium Chloride Carbon Dioxide BUN 78 H Creatinine 2.3 H Glucose 139 H POC Glucose Hemoglobin A1c Lactic Acid Calcium 8.3 L Total Bilirubin Alkaline Phosphatase Ammonia Troponin T Total Protein Albumin HDL Cholesterol Urine Creatinine 78.6 H Crossmatch 11/30/16 11/30/16 11/30/16 11:23 17:43 20:23 WBC RBC Hgb Hct MCV MCH MCHC RDW Plt Count Lymph % (Auto) [place] % (Auto) Lymph # [place] # Seg Neutrophils % Seg Neuts % (Manual) Lymphocytes % (Manual) Monocytes % (Manual) Nucleated RBC % Seg Neutrophils # Seg Neutrophils # Man Lymphocytes # (Manual) Monocytes # (Manual) PT INR APTT Heparin Anti-Xa Level POC ABG pH POC ABG pCO2 POC ABG pO2 Sodium Potassium Chloride Carbon Dioxide BUN Creatinine Glucose POC Glucose 169 H 57 L 69 L Hemoglobin A1c Lactic Acid Calcium Total Bilirubin Alkaline Phosphatase Ammonia Troponin T Total Protein Albumin HDL Cholesterol Urine Creatinine Crossmatch 11/30/16 11/30/16 12/01/16 20:37 22:12 05:30 WBC RBC Hgb Hct MCV MCH MCHC RDW Plt Count Lymph % (Auto) [place] % (Auto) Lymph # [place] # Seg Neutrophils % Seg Neuts % (Manual) Lymphocytes % (Manual) Monocytes % (Manual) Nucleated RBC % Seg Neutrophils # Seg Neutrophils # Man Lymphocytes # (Manual) Monocytes # (Manual) PT INR APTT Heparin Anti-Xa Level POC ABG pH POC ABG pCO2 POC ABG pO2 Sodium Potassium Chloride Carbon Dioxide BUN Creatinine Glucose POC Glucose 107 H 151 H Hemoglobin A1c Lactic Acid Calcium Total Bilirubin Alkaline Phosphatase Ammonia Troponin T 0.033 H Total Protein Albumin HDL Cholesterol 36 L Urine Creatinine Crossmatch 12/01/16 12/01/16 12/01/16 07:39 07:39 11:48 WBC 12.9 H RBC Hgb 10.9 L Hct 33.2 L MCV MCH MCHC RDW 16.6 H Plt Count 94 L Lymph % (Auto) [place] % (Auto) Lymph # [place] # Seg Neutrophils % Seg Neuts % (Manual) 98.0 H Lymphocytes % (Manual) 0 L Monocytes % (Manual) Nucleated RBC % Seg Neutrophils # Seg Neutrophils # Man 12.6 H Lymphocytes # (Manual) 0.0 L Monocytes # (Manual) PT INR APTT Heparin Anti-Xa Level POC ABG pH POC ABG pCO2 POC ABG pO2 Sodium Potassium Chloride Carbon Dioxide BUN 71 H Creatinine 2.1 H Glucose POC Glucose 193 H Hemoglobin A1c Lactic Acid Calcium 8.1 L Total Bilirubin Alkaline Phosphatase Ammonia Troponin T Total Protein Albumin HDL Cholesterol Urine Creatinine Crossmatch 12/01/16 12/01/16 12/02/16 17:02 21:17 06:05 WBC RBC Hgb Hct MCV MCH MCHC RDW Plt Count Lymph % (Auto) [place] % (Auto) Lymph # [place] # Seg Neutrophils % Seg Neuts % (Manual) Lymphocytes % (Manual) Monocytes % (Manual) Nucleated RBC % Seg Neutrophils # Seg Neutrophils # Man Lymphocytes # (Manual) Monocytes # (Manual) PT INR APTT Heparin Anti-Xa Level POC ABG pH POC ABG pCO2 POC ABG pO2 Sodium Potassium Chloride Carbon Dioxide BUN Creatinine Glucose POC Glucose 170 H 156 H < 40 L Hemoglobin A1c Lactic Acid Calcium Total Bilirubin Alkaline Phosphatase Ammonia Troponin T Total Protein Albumin HDL Cholesterol Urine Creatinine Crossmatch 12/02/16 12/02/16 12/02/16 06:34 06:41 07:48 WBC RBC Hgb 10.2 L Hct 31.4 L MCV MCH 27 L MCHC RDW 16.3 H Plt Count 89 L Lymph % (Auto) [place] % (Auto) Lymph # [place] # Seg Neutrophils % Seg Neuts % (Manual) 87.0 H Lymphocytes % (Manual) 7.0 L Monocytes % (Manual) Nucleated RBC % Seg Neutrophils # Seg Neutrophils # Man 8.9 H Lymphocytes # (Manual) 0.7 L Monocytes # (Manual) PT INR APTT Heparin Anti-Xa Level POC ABG pH POC ABG pCO2 POC ABG pO2 Sodium Potassium Chloride Carbon Dioxide BUN Creatinine Glucose POC Glucose 141 H 124 H Hemoglobin A1c Lactic Acid Calcium Total Bilirubin Alkaline Phosphatase Ammonia Troponin T Total Protein Albumin HDL Cholesterol Urine Creatinine Crossmatch 12/02/16 12/02/16 12/02/16 07:48 12:22 18:02 WBC RBC Hgb Hct MCV MCH MCHC RDW Plt Count Lymph % (Auto) [place] % (Auto) Lymph # [place] # Seg Neutrophils % Seg Neuts % (Manual) Lymphocytes % (Manual) Monocytes % (Manual) Nucleated RBC % Seg Neutrophils # Seg Neutrophils # Man Lymphocytes # (Manual) Monocytes # (Manual) PT INR APTT Heparin Anti-Xa Level POC ABG pH POC ABG pCO2 POC ABG pO2 Sodium 136 L Potassium Chloride Carbon Dioxide BUN 75 H Creatinine 2.7 H Glucose POC Glucose < 40 L 53 L Hemoglobin A1c Lactic Acid Calcium 7.9 L Total Bilirubin Alkaline Phosphatase Ammonia Troponin T Total Protein Albumin HDL Cholesterol Urine Creatinine Crossmatch 12/02/16 12/02/16 12/02/16 19:20 19:23 19:23 WBC 13.8 H RBC Hgb 10.9 L Hct 34.6 L MCV MCH 27 L MCHC 31 L RDW 16.2 H Plt Count 106 L Lymph % (Auto) [place] % (Auto) Lymph # [place] # Seg Neutrophils % Seg Neuts % (Manual) 86.0 H Lymphocytes % (Manual) 4.0 L Monocytes % (Manual) Nucleated RBC % Seg Neutrophils # Seg Neutrophils # Man 11.9 H Lymphocytes # (Manual) 0.6 L Monocytes # (Manual) 1.0 H PT 16.6 H INR 1.27 H APTT 45.4 H Heparin Anti-Xa Level POC ABG pH POC ABG pCO2 POC ABG pO2 Sodium Potassium Chloride 95.8 L Carbon Dioxide BUN 75 H Creatinine 2.8 H Glucose 105 H POC Glucose Hemoglobin A1c Lactic Acid Calcium 7.8 L Total Bilirubin 2.70 H Alkaline Phosphatase Ammonia Troponin T Total Protein 6.0 L Albumin 2.7 L HDL Cholesterol Urine Creatinine Crossmatch 12/02/16 12/02/16 12/03/16 19:39 21:14 01:15 WBC RBC Hgb Hct MCV MCH MCHC RDW Plt Count Lymph % (Auto) [place] % (Auto) Lymph # [place] # Seg Neutrophils % Seg Neuts % (Manual) Lymphocytes % (Manual) Monocytes % (Manual) Nucleated RBC % Seg Neutrophils # Seg Neutrophils # Man Lymphocytes # (Manual) Monocytes # (Manual) PT INR APTT Heparin Anti-Xa Level < 0.10 L POC ABG pH 7.214 L POC ABG pCO2 54.0 H POC ABG pO2 227 H Sodium Potassium Chloride Carbon Dioxide BUN Creatinine Glucose POC Glucose 141 H Hemoglobin A1c Lactic Acid Calcium Total Bilirubin Alkaline Phosphatase Ammonia Troponin T Total Protein Albumin HDL Cholesterol Urine Creatinine Crossmatch 12/03/16 12/03/16 12/03/16 04:15 05:15 06:04 WBC 45.9 H* RBC Hgb 10.5 L Hct 32.9 L MCV MCH 27 L MCHC RDW 16.6 H Plt Count 101 L Lymph % (Auto) [place] % (Auto) Lymph # [place] # Seg Neutrophils % Seg Neuts % (Manual) Lymphocytes % (Manual) 8.0 L Monocytes % (Manual) 8.0 H Nucleated RBC % Seg Neutrophils # Seg Neutrophils # Man 31.2 H Lymphocytes # (Manual) Monocytes # (Manual) 3.7 H PT INR APTT Heparin Anti-Xa Level POC ABG pH POC ABG pCO2 POC ABG pO2 72 L Sodium Potassium Chloride Carbon Dioxide BUN Creatinine Glucose POC Glucose 50 L Hemoglobin A1c Lactic Acid Calcium Total Bilirubin Alkaline Phosphatase Ammonia Troponin T Total Protein Albumin HDL Cholesterol Urine Creatinine Crossmatch 12/03/16 12/03/16 12/03/16 06:04 06:51 08:01 WBC RBC Hgb Hct MCV MCH MCHC RDW Plt Count Lymph % (Auto) [place] % (Auto) Lymph # [place] # Seg Neutrophils % Seg Neuts % (Manual) Lymphocytes % (Manual) Monocytes % (Manual) Nucleated RBC % Seg Neutrophils # Seg Neutrophils # Man Lymphocytes # (Manual) Monocytes # (Manual) PT INR APTT Heparin Anti-Xa Level POC ABG pH POC ABG pCO2 POC ABG pO2 Sodium 128 L D Potassium 6.8 H* D Chloride 94.2 L Carbon Dioxide 17 L BUN 77 H Creatinine 2.6 H Glucose POC Glucose 118 H Hemoglobin A1c Lactic Acid Calcium 7.6 L Total Bilirubin Alkaline Phosphatase Ammonia Troponin T 0.098 H Total Protein Albumin HDL Cholesterol Urine Creatinine Crossmatch 12/03/16 12/03/16 12/03/16 08:13 09:44 12:19 WBC RBC Hgb Hct MCV MCH MCHC RDW Plt Count Lymph % (Auto) [place] % (Auto) Lymph # [place] # Seg Neutrophils % Seg Neuts % (Manual) Lymphocytes % (Manual) Monocytes % (Manual) Nucleated RBC % Seg Neutrophils # Seg Neutrophils # Man Lymphocytes # (Manual) Monocytes # (Manual) PT INR APTT Heparin Anti-Xa Level POC ABG pH POC ABG pCO2 POC ABG pO2 Sodium Potassium Chloride Carbon Dioxide BUN Creatinine Glucose POC Glucose 107 H 115 H Hemoglobin A1c Lactic Acid 3.40 H* Calcium Total Bilirubin Alkaline Phosphatase Ammonia Troponin T Total Protein Albumin HDL Cholesterol Urine Creatinine Crossmatch 12/03/16 12/03/16 12/03/16 16:39 17:49 20:15 WBC 18.9 H RBC 3.04 L Hgb 8.4 L Hct 26.2 L MCV MCH MCHC RDW 16.6 H Plt Count 81 L Lymph % (Auto) [place] % (Auto) Lymph # [place] # Seg Neutrophils % Seg Neuts % (Manual) 94.0 H Lymphocytes % (Manual) 1.0 L Monocytes % (Manual) Nucleated RBC % Seg Neutrophils # Seg Neutrophils # Man 17.8 H Lymphocytes # (Manual) 0.2 L Monocytes # (Manual) PT INR APTT Heparin Anti-Xa Level POC ABG pH POC ABG pCO2 POC ABG pO2 Sodium Potassium Chloride Carbon Dioxide BUN Creatinine Glucose POC Glucose 151 H Hemoglobin A1c Lactic Acid 3.10 H* Calcium Total Bilirubin Alkaline Phosphatase Ammonia Troponin T Total Protein Albumin HDL Cholesterol Urine Creatinine Crossmatch 12/03/16 12/03/16 12/03/16 23:34 Unknown Unknown WBC 22.2 H RBC 3.16 L Hgb 8.6 L Hct 27.3 L MCV MCH 27 L MCHC 31 L RDW 16.9 H Plt Count 81 L Lymph % (Auto) [place] % (Auto) Lymph # [place] # Seg Neutrophils % Seg Neuts % (Manual) Lymphocytes % (Manual) Monocytes % (Manual) Nucleated RBC % Seg Neutrophils # Seg Neutrophils # Man Lymphocytes # (Manual) Monocytes # (Manual) PT INR APTT Heparin Anti-Xa Level POC ABG pH POC ABG pCO2 POC ABG pO2 Sodium 132 L Potassium Chloride 95.8 L Carbon Dioxide 19 L BUN 93 H Creatinine 3.4 H Glucose 130 H POC Glucose 188 H Hemoglobin A1c Lactic Acid Calcium 7.4 L Total Bilirubin Alkaline Phosphatase Ammonia Troponin T Total Protein Albumin HDL Cholesterol Urine Creatinine Crossmatch 12/04/16 12/04/16 12/04/16 04:57 05:45 06:00 WBC 17.8 H RBC 3.07 L Hgb 8.7 L Hct 26.1 L MCV MCH MCHC RDW 16.5 H Plt Count 93 L Lymph % (Auto) [place] % (Auto) Lymph # [place] # Seg Neutrophils % Seg Neuts % (Manual) 80.0 H Lymphocytes % (Manual) 7.0 L Monocytes % (Manual) Nucleated RBC % Seg Neutrophils # Seg Neutrophils # Man 14.2 H Lymphocytes # (Manual) Monocytes # (Manual) 1.1 H PT INR APTT Heparin Anti-Xa Level POC ABG pH 7.277 L POC ABG pCO2 POC ABG pO2 198 H Sodium Potassium Chloride Carbon Dioxide BUN Creatinine Glucose POC Glucose 186 H Hemoglobin A1c Lactic Acid Calcium Total Bilirubin Alkaline Phosphatase Ammonia Troponin T Total Protein Albumin HDL Cholesterol Urine Creatinine Crossmatch 12/04/16 12/04/16 12/04/16 06:00 07:23 11:50 WBC RBC Hgb Hct MCV MCH MCHC RDW Plt Count Lymph % (Auto) [place] % (Auto) Lymph # [place] # Seg Neutrophils % Seg Neuts % (Manual) Lymphocytes % (Manual) Monocytes % (Manual) Nucleated RBC % Seg Neutrophils # Seg Neutrophils # Man Lymphocytes # (Manual) Monocytes # (Manual) PT INR APTT Heparin Anti-Xa Level POC ABG pH POC ABG pCO2 POC ABG pO2 Sodium 133 L Potassium Chloride 96.0 L Carbon Dioxide 18 L BUN 103 H Creatinine 3.6 H Glucose 190 H POC Glucose 187 H 190 H Hemoglobin A1c Lactic Acid Calcium 7.7 L Total Bilirubin Alkaline Phosphatase Ammonia Troponin T Total Protein Albumin HDL Cholesterol Urine Creatinine Crossmatch 12/04/16 12/04/16 12/04/16 13:22 17:46 23:33 WBC RBC Hgb Hct MCV MCH MCHC RDW Plt Count Lymph % (Auto) [place] % (Auto) Lymph # [place] # Seg Neutrophils % Seg Neuts % (Manual) Lymphocytes % (Manual) Monocytes % (Manual) Nucleated RBC % Seg Neutrophils # Seg Neutrophils # Man Lymphocytes # (Manual) Monocytes # (Manual) PT INR APTT Heparin Anti-Xa Level POC ABG pH POC ABG pCO2 POC ABG pO2 Sodium Potassium Chloride Carbon Dioxide BUN Creatinine Glucose POC Glucose 264 H 263 H Hemoglobin A1c Lactic Acid 2.60 H* Calcium Total Bilirubin Alkaline Phosphatase Ammonia Troponin T Total Protein Albumin HDL Cholesterol Urine Creatinine Crossmatch 12/05/16 12/05/16 12/05/16 05:00 05:00 05:17 WBC 17.1 H RBC 3.03 L Hgb 8.2 L Hct 25.9 L MCV MCH 27 L MCHC RDW 16.4 H Plt Count 81 L Lymph % (Auto) 1.3 L [place] % (Auto) 9.7 H Lymph # 0.2 L [place] # 1.7 H Seg Neutrophils % 88.9 H Seg Neuts % (Manual) Lymphocytes % (Manual) Monocytes % (Manual) Nucleated RBC % Seg Neutrophils # 15.2 H Seg Neutrophils # Man Lymphocytes # (Manual) Monocytes # (Manual) PT INR APTT Heparin Anti-Xa Level POC ABG pH POC ABG pCO2 POC ABG pO2 Sodium 132 L Potassium Chloride 96.9 L Carbon Dioxide 19 L BUN 120 H Creatinine 4.8 H Glucose 193 H POC Glucose 229 H Hemoglobin A1c Lactic Acid Calcium 8.0 L Total Bilirubin Alkaline Phosphatase Ammonia Troponin T Total Protein Albumin HDL Cholesterol Urine Creatinine Crossmatch 12/05/16 12/05/16 12/05/16 06:00 11:46 17:53 WBC RBC Hgb Hct MCV MCH MCHC RDW Plt Count Lymph % (Auto) [place] % (Auto) Lymph # [place] # Seg Neutrophils % Seg Neuts % (Manual) Lymphocytes % (Manual) Monocytes % (Manual) Nucleated RBC % Seg Neutrophils # Seg Neutrophils # Man Lymphocytes # (Manual) Monocytes # (Manual) PT INR APTT Heparin Anti-Xa Level POC ABG pH POC ABG pCO2 32.5 L POC ABG pO2 124 H Sodium Potassium Chloride Carbon Dioxide BUN Creatinine Glucose POC Glucose 139 H 170 H Hemoglobin A1c Lactic Acid Calcium Total Bilirubin Alkaline Phosphatase Ammonia Troponin T Total Protein Albumin HDL Cholesterol Urine Creatinine Crossmatch 12/05/16 12/06/16 12/06/16 23:24 04:20 05:57 WBC RBC Hgb Hct MCV MCH MCHC RDW Plt Count Lymph % (Auto) [place] % (Auto) Lymph # [place] # Seg Neutrophils % Seg Neuts % (Manual) Lymphocytes % (Manual) Monocytes % (Manual) Nucleated RBC % Seg Neutrophils # Seg Neutrophils # Man Lymphocytes # (Manual) Monocytes # (Manual) PT INR APTT Heparin Anti-Xa Level POC ABG pH POC ABG pCO2 30.3 L POC ABG pO2 122 H Sodium Potassium Chloride Carbon Dioxide BUN Creatinine Glucose POC Glucose 153 H 166 H Hemoglobin A1c Lactic Acid Calcium Total Bilirubin Alkaline Phosphatase Ammonia Troponin T Total Protein Albumin HDL Cholesterol Urine Creatinine Crossmatch 12/06/16 12/06/16 12/06/16 06:00 06:00 11:32 WBC 18.1 H RBC 2.76 L Hgb 7.7 L Hct 23.4 L MCV MCH MCHC RDW 16.6 H Plt Count 62 L Lymph % (Auto) [place] % (Auto) Lymph # [place] # Seg Neutrophils % Seg Neuts % (Manual) 96.0 H Lymphocytes % (Manual) 0 L Monocytes % (Manual) Nucleated RBC % Seg Neutrophils # Seg Neutrophils # Man 17.4 H Lymphocytes # (Manual) 0.0 L Monocytes # (Manual) PT INR APTT Heparin Anti-Xa Level POC ABG pH POC ABG pCO2 POC ABG pO2 Sodium 134 L Potassium Chloride 96.8 L Carbon Dioxide 19 L BUN 117 H Creatinine 4.9 H Glucose 179 H POC Glucose 300 H Hemoglobin A1c Lactic Acid Calcium 8.0 L Total Bilirubin Alkaline Phosphatase Ammonia Troponin T Total Protein Albumin HDL Cholesterol Urine Creatinine Crossmatch 12/06/16 12/06/16 12/06/16 11:33 18:11 23:23 WBC RBC Hgb Hct MCV MCH MCHC RDW Plt Count Lymph % (Auto) [place] % (Auto) Lymph # [place] # Seg Neutrophils % Seg Neuts % (Manual) Lymphocytes % (Manual) Monocytes % (Manual) Nucleated RBC % Seg Neutrophils # Seg Neutrophils # Man Lymphocytes # (Manual) Monocytes # (Manual) PT INR APTT Heparin Anti-Xa Level POC ABG pH POC ABG pCO2 POC ABG pO2 Sodium Potassium Chloride Carbon Dioxide BUN Creatinine Glucose POC Glucose 204 H 246 H 225 H Hemoglobin A1c Lactic Acid Calcium Total Bilirubin Alkaline Phosphatase Ammonia Troponin T Total Protein Albumin HDL Cholesterol Urine Creatinine Crossmatch 12/07/16 12/07/16 12/07/16 04:50 05:19 05:40 WBC 15.6 H RBC 2.71 L Hgb 7.4 L Hct 22.6 L MCV 83 L MCH 27 L MCHC RDW 16.2 H Plt Count 61 L Lymph % (Auto) [place] % (Auto) Lymph # [place] # Seg Neutrophils % Seg Neuts % (Manual) 97.0 H Lymphocytes % (Manual) 0 L Monocytes % (Manual) Nucleated RBC % Seg Neutrophils # Seg Neutrophils # Man 15.1 H Lymphocytes # (Manual) 0.0 L Monocytes # (Manual) PT INR APTT Heparin Anti-Xa Level POC ABG pH POC ABG pCO2 31.3 L POC ABG pO2 Sodium Potassium Chloride Carbon Dioxide BUN Creatinine Glucose POC Glucose 238 H Hemoglobin A1c Lactic Acid Calcium Total Bilirubin Alkaline Phosphatase Ammonia Troponin T Total Protein Albumin HDL Cholesterol Urine Creatinine Crossmatch 12/07/16 12/07/16 12/07/16 05:40 11:43 16:09 WBC RBC Hgb Hct MCV MCH MCHC RDW Plt Count Lymph % (Auto) [place] % (Auto) Lymph # [place] # Seg Neutrophils % Seg Neuts % (Manual) Lymphocytes % (Manual) Monocytes % (Manual) Nucleated RBC % Seg Neutrophils # Seg Neutrophils # Man Lymphocytes # (Manual) Monocytes # (Manual) PT INR APTT Heparin Anti-Xa Level POC ABG pH POC ABG pCO2 POC ABG pO2 Sodium 136 L Potassium Chloride Carbon Dioxide 19 L BUN 122 H Creatinine 5.1 H Glucose 226 H POC Glucose 312 H Hemoglobin A1c Lactic Acid Calcium 7.9 L Total Bilirubin Alkaline Phosphatase Ammonia Troponin T Total Protein Albumin HDL Cholesterol Urine Creatinine Crossmatch See Detail 12/07/16 12/07/16 12/07/16 16:09 17:27 17:31 WBC RBC Hgb 7.0 L Hct 21.0 L MCV MCH MCHC RDW Plt Count Lymph % (Auto) [place] % (Auto) Lymph # [place] # Seg Neutrophils % Seg Neuts % (Manual) Lymphocytes % (Manual) Monocytes % (Manual) Nucleated RBC % Seg Neutrophils # Seg Neutrophils # Man Lymphocytes # (Manual) Monocytes # (Manual) PT INR APTT Heparin Anti-Xa Level POC ABG pH POC ABG pCO2 POC ABG pO2 Sodium Potassium Chloride Carbon Dioxide BUN Creatinine Glucose POC Glucose 312 H 242 H Hemoglobin A1c Lactic Acid Calcium Total Bilirubin Alkaline Phosphatase Ammonia Troponin T Total Protein Albumin HDL Cholesterol Urine Creatinine Crossmatch 12/07/16 12/08/16 12/08/16 23:52 04:00 04:00 WBC 13.2 H RBC 2.50 L Hgb 7.0 L Hct 21.1 L MCV MCH MCHC RDW 16.8 H Plt Count 44 L Lymph % (Auto) 1.5 L [place] % (Auto) 9.1 H Lymph # 0.2 L [place] # 1.2 H Seg Neutrophils % 88.6 H Seg Neuts % (Manual) Lymphocytes % (Manual) Monocytes % (Manual) Nucleated RBC % Seg Neutrophils # 11.7 H Seg Neutrophils # Man Lymphocytes # (Manual) Monocytes # (Manual) PT INR APTT Heparin Anti-Xa Level POC ABG pH POC ABG pCO2 POC ABG pO2 Sodium Potassium Chloride Carbon Dioxide 21 L BUN 127 H Creatinine 5.0 H Glucose 148 H POC Glucose 173 H Hemoglobin A1c Lactic Acid Calcium 8.2 L Total Bilirubin 2.00 H Alkaline Phosphatase 132 H Ammonia Troponin T Total Protein 5.6 L Albumin 2.6 L HDL Cholesterol Urine Creatinine Crossmatch 12/08/16 12/08/16 12/08/16 05:34 09:20 11:50 WBC RBC Hgb 6.9 L Hct 21.4 L MCV MCH MCHC RDW Plt Count Lymph % (Auto) [place] % (Auto) Lymph # [place] # Seg Neutrophils % Seg Neuts % (Manual) Lymphocytes % (Manual) Monocytes % (Manual) Nucleated RBC % Seg Neutrophils # Seg Neutrophils # Man Lymphocytes # (Manual) Monocytes # (Manual) PT INR APTT Heparin Anti-Xa Level POC ABG pH POC ABG pCO2 POC ABG pO2 Sodium Potassium Chloride Carbon Dioxide BUN Creatinine Glucose POC Glucose 134 H Hemoglobin A1c Lactic Acid Calcium Total Bilirubin Alkaline Phosphatase Ammonia 90.0 H Troponin T Total Protein Albumin HDL Cholesterol Urine Creatinine Crossmatch 12/08/16 12/08/16 12/08/16 15:40 17:35 18:20 WBC RBC Hgb 9.2 L Hct 28.1 L D MCV MCH MCHC RDW Plt Count Lymph % (Auto) [place] % (Auto) Lymph # [place] # Seg Neutrophils % Seg Neuts % (Manual) Lymphocytes % (Manual) Monocytes % (Manual) Nucleated RBC % Seg Neutrophils # Seg Neutrophils # Man Lymphocytes # (Manual) Monocytes # (Manual) PT INR APTT Heparin Anti-Xa Level POC ABG pH POC ABG pCO2 POC ABG pO2 Sodium Potassium Chloride Carbon Dioxide BUN Creatinine Glucose POC Glucose 111 H 146 H Hemoglobin A1c Lactic Acid Calcium Total Bilirubin Alkaline Phosphatase Ammonia Troponin T Total Protein Albumin HDL Cholesterol Urine Creatinine Crossmatch 12/09/16 12/09/16 12/09/16 00:10 04:13 05:50 WBC 17.6 H RBC 3.48 L Hgb 9.5 L Hct 29.2 L MCV MCH 27 L MCHC RDW 15.8 H Plt Count 75 L Lymph % (Auto) [place] % (Auto) Lymph # [place] # Seg Neutrophils % Seg Neuts % (Manual) 94.0 H Lymphocytes % (Manual) 2.0 L Monocytes % (Manual) Nucleated RBC % Seg Neutrophils # Seg Neutrophils # Man 16.5 H Lymphocytes # (Manual) 0.4 L Monocytes # (Manual) PT INR APTT Heparin Anti-Xa Level POC ABG pH POC ABG pCO2 POC ABG pO2 107 H Sodium Potassium Chloride Carbon Dioxide BUN Creatinine Glucose POC Glucose 64 L Hemoglobin A1c Lactic Acid Calcium Total Bilirubin Alkaline Phosphatase Ammonia Troponin T Total Protein Albumin HDL Cholesterol Urine Creatinine Crossmatch 12/09/16 12/09/16 12/09/16 05:50 12:16 12:56 WBC RBC Hgb Hct MCV MCH MCHC RDW Plt Count Lymph % (Auto) [place] % (Auto) Lymph # [place] # Seg Neutrophils % Seg Neuts % (Manual) Lymphocytes % (Manual) Monocytes % (Manual) Nucleated RBC % Seg Neutrophils # Seg Neutrophils # Man Lymphocytes # (Manual) Monocytes # (Manual) PT INR APTT Heparin Anti-Xa Level POC ABG pH POC ABG pCO2 34.1 L POC ABG pO2 79 L Sodium Potassium Chloride Carbon Dioxide BUN 92 H Creatinine 3.9 H Glucose 70 L POC Glucose 113 H Hemoglobin A1c Lactic Acid Calcium Total Bilirubin Alkaline Phosphatase Ammonia Troponin T Total Protein Albumin HDL Cholesterol Urine Creatinine Crossmatch 12/09/16 12/09/16 12/10/16 17:52 23:33 05:07 WBC RBC Hgb Hct MCV MCH MCHC RDW Plt Count Lymph % (Auto) [place] % (Auto) Lymph # [place] # Seg Neutrophils % Seg Neuts % (Manual) Lymphocytes % (Manual) Monocytes % (Manual) Nucleated RBC % Seg Neutrophils # Seg Neutrophils # Man Lymphocytes # (Manual) Monocytes # (Manual) PT INR APTT Heparin Anti-Xa Level POC ABG pH POC ABG pCO2 POC ABG pO2 Sodium Potassium Chloride Carbon Dioxide BUN Creatinine Glucose POC Glucose 146 H 150 H 142 H Hemoglobin A1c Lactic Acid Calcium Total Bilirubin Alkaline Phosphatase Ammonia Troponin T Total Protein Albumin HDL Cholesterol Urine Creatinine Crossmatch 12/10/16 12/10/16 12/10/16 06:15 08:30 09:45 WBC RBC Hgb 8.7 L Hct 27.0 L MCV MCH MCHC RDW Plt Count 71 L Lymph % (Auto) [place] % (Auto) Lymph # [place] # Seg Neutrophils % Seg Neuts % (Manual) Lymphocytes % (Manual) Monocytes % (Manual) Nucleated RBC % Seg Neutrophils # Seg Neutrophils # Man Lymphocytes # (Manual) Monocytes # (Manual) PT INR APTT Heparin Anti-Xa Level POC ABG pH 7.508 H 7.558 H POC ABG pCO2 32.8 L 29.1 L POC ABG pO2 72 L Sodium Potassium Chloride Carbon Dioxide BUN Creatinine Glucose POC Glucose Hemoglobin A1c Lactic Acid Calcium Total Bilirubin Alkaline Phosphatase Ammonia Troponin T Total Protein Albumin HDL Cholesterol Urine Creatinine Crossmatch 12/10/16 12/10/16 12/10/16 12:06 18:25 23:44 WBC RBC Hgb Hct MCV MCH MCHC RDW Plt Count Lymph % (Auto) [place] % (Auto) Lymph # [place] # Seg Neutrophils % Seg Neuts % (Manual) Lymphocytes % (Manual) Monocytes % (Manual) Nucleated RBC % Seg Neutrophils # Seg Neutrophils # Man Lymphocytes # (Manual) Monocytes # (Manual) PT INR APTT Heparin Anti-Xa Level POC ABG pH POC ABG pCO2 POC ABG pO2 Sodium Potassium Chloride Carbon Dioxide BUN Creatinine Glucose POC Glucose 264 H 126 H 195 H Hemoglobin A1c Lactic Acid Calcium Total Bilirubin Alkaline Phosphatase Ammonia Troponin T Total Protein Albumin HDL Cholesterol Urine Creatinine Crossmatch 12/11/16 12/11/16 12/11/16 05:36 09:05 11:49 WBC RBC Hgb Hct MCV MCH MCHC RDW Plt Count Lymph % (Auto) [place] % (Auto) Lymph # [place] # Seg Neutrophils % Seg Neuts % (Manual) Lymphocytes % (Manual) Monocytes % (Manual) Nucleated RBC % Seg Neutrophils # Seg Neutrophils # Man Lymphocytes # (Manual) Monocytes # (Manual) PT INR APTT Heparin Anti-Xa Level POC ABG pH 7.517 H POC ABG pCO2 32.2 L POC ABG pO2 Sodium Potassium Chloride Carbon Dioxide BUN Creatinine Glucose POC Glucose 196 H 187 H Hemoglobin A1c Lactic Acid Calcium Total Bilirubin Alkaline Phosphatase Ammonia Troponin T Total Protein Albumin HDL Cholesterol Urine Creatinine Crossmatch 12/11/16 12/12/16 12/12/16 18:02 00:01 05:23 WBC RBC Hgb Hct MCV MCH MCHC RDW Plt Count Lymph % (Auto) [place] % (Auto) Lymph # [place] # Seg Neutrophils % Seg Neuts % (Manual) Lymphocytes % (Manual) Monocytes % (Manual) Nucleated RBC % Seg Neutrophils # Seg Neutrophils # Man Lymphocytes # (Manual) Monocytes # (Manual) PT INR APTT Heparin Anti-Xa Level POC ABG pH POC ABG pCO2 POC ABG pO2 Sodium Potassium Chloride Carbon Dioxide BUN Creatinine Glucose POC Glucose 257 H 203 H 274 H Hemoglobin A1c Lactic Acid Calcium Total Bilirubin Alkaline Phosphatase Ammonia Troponin T Total Protein Albumin HDL Cholesterol Urine Creatinine Crossmatch 12/12/16 12/12/16 12/12/16 06:30 06:30 12:03 WBC 11.3 H RBC 3.30 L Hgb 9.0 L Hct 28.2 L MCV MCH 27 L MCHC RDW 16.8 H Plt Count 88 L Lymph % (Auto) [place] % (Auto) Lymph # [place] # Seg Neutrophils % Seg Neuts % (Manual) 99.0 H Lymphocytes % (Manual) 0 L Monocytes % (Manual) Nucleated RBC % 1.0 H Seg Neutrophils # Seg Neutrophils # Man 11.2 H Lymphocytes # (Manual) 0.0 L Monocytes # (Manual) PT INR APTT Heparin Anti-Xa Level POC ABG pH POC ABG pCO2 POC ABG pO2 Sodium 136 L Potassium Chloride 97.1 L Carbon Dioxide BUN 70 H Creatinine 3.4 H Glucose 256 H POC Glucose 190 H Hemoglobin A1c Lactic Acid Calcium 8.0 L Total Bilirubin Alkaline Phosphatase Ammonia Troponin T Total Protein Albumin HDL Cholesterol Urine Creatinine Crossmatch 12/12/16 12/13/16 12/13/16 16:00 00:02 04:30 WBC RBC Hgb 8.4 L Hct 25.8 L MCV MCH MCHC RDW Plt Count Lymph % (Auto) [place] % (Auto) Lymph # [place] # Seg Neutrophils % Seg Neuts % (Manual) Lymphocytes % (Manual) Monocytes % (Manual) Nucleated RBC % Seg Neutrophils # Seg Neutrophils # Man Lymphocytes # (Manual) Monocytes # (Manual) PT INR APTT Heparin Anti-Xa Level POC ABG pH POC ABG pCO2 POC ABG pO2 Sodium Potassium Chloride Carbon Dioxide BUN Creatinine Glucose POC Glucose 235 H 113 H Hemoglobin A1c Lactic Acid Calcium Total Bilirubin Alkaline Phosphatase Ammonia Troponin T Total Protein Albumin HDL Cholesterol Urine Creatinine Crossmatch 12/13/16 12/13/16 12/13/16 04:30 12:09 17:52 WBC RBC Hgb Hct MCV MCH MCHC RDW Plt Count Lymph % (Auto) [place] % (Auto) Lymph # [place] # Seg Neutrophils % Seg Neuts % (Manual) Lymphocytes % (Manual) Monocytes % (Manual) Nucleated RBC % Seg Neutrophils # Seg Neutrophils # Man Lymphocytes # (Manual) Monocytes # (Manual) PT INR APTT Heparin Anti-Xa Level POC ABG pH POC ABG pCO2 POC ABG pO2 Sodium Potassium Chloride Carbon Dioxide BUN 53 H Creatinine 2.9 H Glucose POC Glucose 179 H 126 H Hemoglobin A1c Lactic Acid Calcium 7.7 L Total Bilirubin Alkaline Phosphatase Ammonia Troponin T Total Protein Albumin HDL Cholesterol Urine Creatinine Crossmatch 12/14/16 12/14/16 12/14/16 00:11 05:00 05:00 WBC RBC 2.92 L Hgb 8.1 L Hct 24.8 L MCV MCH MCHC RDW 16.9 H Plt Count 66 L Lymph % (Auto) 2.2 L [place] % (Auto) 10.3 H Lymph # 0.2 L [place] # 1.0 H Seg Neutrophils % 87.1 H Seg Neuts % (Manual) Lymphocytes % (Manual) Monocytes % (Manual) Nucleated RBC % Seg Neutrophils # 8.5 H Seg Neutrophils # Man Lymphocytes # (Manual) Monocytes # (Manual) PT INR APTT Heparin Anti-Xa Level POC ABG pH POC ABG pCO2 POC ABG pO2 Sodium Potassium Chloride Carbon Dioxide BUN 68 H Creatinine 3.0 H Glucose 155 H POC Glucose 121 H Hemoglobin A1c Lactic Acid Calcium 8.0 L Total Bilirubin Alkaline Phosphatase Ammonia Troponin T Total Protein Albumin HDL Cholesterol Urine Creatinine Crossmatch 12/14/16 12/14/16 12/14/16 06:33 12:45 18:01 WBC RBC Hgb Hct MCV MCH MCHC RDW Plt Count Lymph % (Auto) [place] % (Auto) Lymph # [place] # Seg Neutrophils % Seg Neuts % (Manual) Lymphocytes % (Manual) Monocytes % (Manual) Nucleated RBC % Seg Neutrophils # Seg Neutrophils # Man Lymphocytes # (Manual) Monocytes # (Manual) PT INR APTT Heparin Anti-Xa Level POC ABG pH POC ABG pCO2 POC ABG pO2 Sodium Potassium Chloride Carbon Dioxide BUN Creatinine Glucose POC Glucose 129 H 275 H 140 H Hemoglobin A1c Lactic Acid Calcium Total Bilirubin Alkaline Phosphatase Ammonia Troponin T Total Protein Albumin HDL Cholesterol Urine Creatinine Crossmatch 12/15/16 12/15/16 12/15/16 00:28 06:36 07:33 WBC RBC Hgb Hct MCV MCH MCHC RDW Plt Count Lymph % (Auto) [place] % (Auto) Lymph # [place] # Seg Neutrophils % Seg Neuts % (Manual) Lymphocytes % (Manual) Monocytes % (Manual) Nucleated RBC % Seg Neutrophils # Seg Neutrophils # Man Lymphocytes # (Manual) Monocytes # (Manual) PT INR APTT Heparin Anti-Xa Level POC ABG pH POC ABG pCO2 POC ABG pO2 Sodium 134 L Potassium Chloride 96.5 L Carbon Dioxide BUN 52 H Creatinine 2.9 H Glucose 190 H POC Glucose 136 H 262 H Hemoglobin A1c Lactic Acid Calcium 7.7 L Total Bilirubin Alkaline Phosphatase Ammonia Troponin T Total Protein Albumin HDL Cholesterol Urine Creatinine Crossmatch 12/15/16 12:42 WBC RBC Hgb Hct MCV MCH MCHC RDW Plt Count Lymph % (Auto) [place] % (Auto) Lymph # [place] # Seg Neutrophils % Seg Neuts % (Manual) Lymphocytes % (Manual) Monocytes % (Manual) Nucleated RBC % Seg Neutrophils # Seg Neutrophils # Man Lymphocytes # (Manual) Monocytes # (Manual) PT INR APTT Heparin Anti-Xa Level POC ABG pH POC ABG pCO2 POC ABG pO2 Sodium Potassium Chloride Carbon Dioxide BUN Creatinine Glucose POC Glucose 270 H Hemoglobin A1c Lactic Acid Calcium Total Bilirubin Alkaline Phosphatase Ammonia Troponin T Total Protein Albumin HDL Cholesterol Urine Creatinine Crossmatch
--- NOTE | 2016-12-15 13:31 | Hem/Onc Progress Note ---
Assessment and Plan - Patient Problems (1) Thrombocytopenia due to cold Current Visit: Yes Status: Acute Plan to address problem: Monitor counts. Please call with questions. Transfuse if platelets < 30 or if bleeding. Subjective Date of service: 12/15/16 Interval history: Still confused. Met with daughter, no bleeding. Objective - Constitutional Vitals: Last Vital Signs Temp 98.7 F 12/15/16 10:14 Pulse 86 12/15/16 10:14 Resp 18 12/15/16 10:14 BP 100/50 12/15/16 10:14 Pulse Ox 95 12/15/16 10:14 General appearance: cachectic - Respiratory Respiratory: bilateral: CTA - Cardiovascular Rhythm: regular - Labs Lab Results: Laboratory Results - last 24 hr 12/14/16 12/14/16 12/15/16 12:45 18:01 00:28 Sodium Potassium Chloride Carbon Dioxide Anion Gap BUN Creatinine Estimated GFR BUN/Creatinine Ratio Glucose POC Glucose 275 H 140 H 136 H Calcium 12/15/16 12/15/16 12/15/16 06:36 07:33 12:42 Sodium 134 L Potassium 4.8 Chloride 96.5 L Carbon Dioxide 25 Anion Gap 17 BUN 52 H Creatinine 2.9 H Estimated GFR 26 BUN/Creatinine Ratio 17.93 Glucose 190 H POC Glucose 262 H 270 H Calcium 7.7 L
--- NOTE | 2016-12-15 15:50 | Progress Note ---
Assessment and Plan Assessment and plan: S/P in house cardiac arrest - Patient extubated on 12/11 - Patient is drowsy - On NG tube feeding, Speech evaluations Bilateral DM leg ulcer - treated with IV rocephin for 10days - On topical antibacterials DM - Sliding scale insulin Acute on chronic kidney disease - patient is on dialysis MWF - Nephrology following Hypertension - Doesn't need antihypertensive medication CAD Chronic systolic heart failure a.fib - Low-dose carvedilol - Cardiology following Thrombocytopenia - We will monitor - Hem/Onc consult appreciated GI bleed - Secondary to gastritis/tendinitis - Continue PPI - H&H stable Diarrhea - C. difficile nagative DVT prophylaxis - SCD Disposition - Possible home hospice after PEG placement. History Interval history: Patient was seen and evaluated this morning, patient is drowsy. Hospitalist Physical - Physical exam Narrative exam: Patient extubated on 12/11. The patient appeared well nourished and normally developed. Vital signs as documented. Head exam is unremarkable. No scleral icterus . Neck is without jugular venous distension, thyromegaly, or carotid bruits. Lungs are clear to auscultation. Cardiac exam reveals regular rate and Rhythm. First and second heart sounds normal. No murmurs, rubs or gallops. Abdominal exam reveals normal bowel sounds, no masses, no organomegaly and no aortic enlargement. Extremities significant for bilateral leg ulcer around the calf area, clean dressing around it. Edema in the upper extremities. 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 - Constitutional Vitals: Temp Pulse Resp BP Pulse Ox 98.7 F 85 20 100/50 95 12/15/16 10:14 12/15/16 14:24 12/15/16 14:24 12/15/16 10:14 12/15/16 10:14 General appearance: Present: no acute distress, other (orally intubated on ventilatory support and sedated) Results - Labs CBC & Chem 7: 12/14/16 05:00 12/15/16 07:33 Labs: Laboratory Last Values WBC 9.7 K/mm3 (4.5-11.0) 12/14/16 05:00 RBC 2.92 M/mm3 (3.65-5.03) L 12/14/16 05:00 Hgb 8.1 gm/dl (11.8-15.2) L 12/14/16 05:00 Hct 24.8 % (35.5-45.6) L 12/14/16 05:00 MCV 85 fl (84-94) 12/14/16 05:00 MCH 28 pg (28-32) 12/14/16 05:00 MCHC 33 % (32-34) 12/14/16 05:00 RDW 16.9 % (13.2-15.2) H 12/14/16 05:00 Plt Count 66 K/mm3 (140-440) L 12/14/16 05:00 Lymph % (Auto) 2.2 % (13.4-35.0) L 12/14/16 05:00 [place] % (Auto) 10.3 % (0.0-7.3) H 12/14/16 05:00 Eos % (Auto) 0.4 % (0.0-4.3) 12/14/16 05:00 Baso % (Auto) 0.0 % (0.0-1.8) 12/14/16 05:00 Lymph # 0.2 K/mm3 (1.2-5.4) L 12/14/16 05:00 [place] # 1.0 K/mm3 (0.0-0.8) H 12/14/16 05:00 Eos # 0.0 K/mm3 (0.0-0.4) 12/14/16 05:00 Baso # 0.0 K/mm3 (0.0-0.1) 12/14/16 05:00 Add Manual Diff Complete 12/12/16 06:30 Total Counted 100 12/12/16 06:30 Seg Neutrophils % 87.1 % (40.0-70.0) H 12/14/16 05:00 Seg Neuts % (Manual) 99.0 % (40.0-70.0) H 12/12/16 06:30 Band Neutrophils % 0 % 12/12/16 06:30 Lymphocytes % (Manual) 0 % (13.4-35.0) L 12/12/16 06:30 Reactive Lymphs % (Man) 0 % 12/12/16 06:30 Monocytes % (Manual) 1.0 % (0.0-7.3) 12/12/16 06:30 Eosinophils % (Manual) 0 % (0.0-4.3) 12/12/16 06:30 Basophils % (Manual) 0 % (0.0-1.8) 12/12/16 06:30 Metamyelocytes % 0 % 12/12/16 06:30 Myelocytes % 0 % 12/12/16 06:30 Promyelocytes % 0 % 12/12/16 06:30 Blast Cells % 0 % 12/12/16 06:30 Nucleated RBC % 1.0 % (0.0-0.9) H 12/12/16 06:30 Seg Neutrophils # 8.5 K/mm3 (1.8-7.7) H 12/14/16 05:00 Seg Neutrophils # Man 11.2 K/mm3 (1.8-7.7) H 12/12/16 06:30 Band Neutrophils # 0.0 K/mm3 12/12/16 06:30 Lymphocytes # (Manual) 0.0 K/mm3 (1.2-5.4) L 12/12/16 06:30 Abs React Lymphs (Man) 0.0 K/mm3 12/12/16 06:30 Monocytes # (Manual) 0.1 K/mm3 (0.0-0.8) 12/12/16 06:30 Eosinophils # (Manual) 0.0 K/mm3 (0.0-0.4) 12/12/16 06:30 Basophils # (Manual) 0.0 K/mm3 (0.0-0.1) 12/12/16 06:30 Metamyelocytes # 0.0 K/mm3 12/12/16 06:30 Myelocytes # 0.0 K/mm3 12/12/16 06:30 Promyelocytes # 0.0 K/mm3 12/12/16 06:30 Blast Cells # 0.0 K/mm3 12/12/16 06:30 WBC Morphology Not Reportable 12/12/16 06:30 Hypersegmented Neuts Not Reportable 12/12/16 06:30 Hyposegmented Neuts Not Reportable 12/12/16 06:30 Hypogranular Neuts Not Reportable 12/12/16 06:30 Smudge Cells Not Reportable 12/12/16 06:30 Toxic Granulation Not Reportable 12/12/16 06:30 Toxic Vacuolation Not Reportable 12/12/16 06:30 Dohle Bodies Not Reportable 12/12/16 06:30 Pelger-Huet Anomaly Not Reportable 12/12/16 06:30 Demetra Rods Not Reportable 12/12/16 06:30 Platelet Estimate Consistent w auto 12/12/16 06:30 Clumped Platelets Not Reportable 12/12/16 06:30 Plt Clumps, EDTA Not Reportable 12/12/16 06:30 Large Platelets Not Reportable 12/12/16 06:30 Giant Platelets Not Reportable 12/12/16 06:30 Platelet Satelliting Not Reportable 12/12/16 06:30 Plt Morphology Comment Not Reportable 12/12/16 06:30 RBC Morphology Not Reportable 12/12/16 06:30 Dimorphic RBCs Not Reportable 12/12/16 06:30 Polychromasia Not Reportable 12/12/16 06:30 Hypochromasia Few 12/12/16 06:30 Poikilocytosis Not Reportable 12/12/16 06:30 Anisocytosis 1+ 12/12/16 06:30 Microcytosis Not Reportable 12/12/16 06:30 Macrocytosis Not Reportable 12/12/16 06:30 Spherocytes Not Reportable 12/12/16 06:30 Pappenheimer Bodies Not Reportable 12/12/16 06:30 Sickle Cells Not Reportable 12/12/16 06:30 Target Cells Few 12/12/16 06:30 Tear Drop Cells Not Reportable 12/12/16 06:30 Ovalocytes Not Reportable 12/12/16 06:30 Helmet Cells Not Reportable 12/12/16 06:30 Don-Yeadon Bodies Not Reportable 12/12/16 06:30 Fortescue Rings Not Reportable 12/12/16 06:30 Genia Cells Not Reportable 12/12/16 06:30 Bite Cells Not Reportable 12/12/16 06:30 Crenated Cell Not Reportable 12/12/16 06:30 Elliptocytes Not Reportable 12/12/16 06:30 Acanthocytes (Spur) Not Reportable 12/12/16 06:30 Rouleaux Not Reportable 12/12/16 06:30 Hemoglobin C Crystals Not Reportable 12/12/16 06:30 Schistocytes Not Reportable 12/12/16 06:30 Malaria parasites Not Reportable 12/12/16 06:30 Romeo Bodies Not Reportable 12/12/16 06:30 Hem Pathologist Commnt No 12/12/16 06:30 PT 16.6 Sec. (12.2-14.9) H 12/02/16 19:20 INR 1.27 (0.87-1.13) H 12/02/16 19:20 APTT 45.4 Sec. (24.2-36.6) H 12/02/16 19:20 Heparin Anti-Xa Level < 0.10 U.I./ml (0.3-0.7) L 12/03/16 01:15 POC ABG pH 7.517 (7.35-7.45) H 12/11/16 09:05 POC ABG pCO2 32.2 (35-45) L 12/11/16 09:05 POC ABG pO2 97 (80-105) 12/11/16 09:05 POC ABG HCO3 26.1 12/11/16 09:05 POC ABG Total CO2 27 12/11/16 09:05 POC ABG O2 Sat 98 12/11/16 09:05 POC ABG Base Excess 3 12/11/16 09:05 FiO2 30 % 12/11/16 09:05 Sodium 134 mmol/L (137-145) L 12/15/16 07:33 Potassium 4.8 mmol/L (3.6-5.0) 12/15/16 07:33 Chloride 96.5 mmol/L (98-107) L 12/15/16 07:33 Carbon Dioxide 25 mmol/L (22-30) 12/15/16 07:33 Anion Gap 17 mmol/L 12/15/16 07:33 BUN 52 mg/dL (9-20) H 12/15/16 07:33 Creatinine 2.9 mg/dL (0.8-1.5) H 12/15/16 07:33 Estimated GFR 26 ml/min 12/15/16 07:33 BUN/Creatinine Ratio 17.93 % 12/15/16 07:33 Glucose 190 mg/dL (75-100) H 12/15/16 07:33 POC Glucose 270 (70-105) H 12/15/16 12:42 Hemoglobin A1c 10.6 % (4-6) H 11/28/16 16:02 Lactic Acid 2.60 mmol/L (0.7-2.0) H* 12/04/16 13:22 Calcium 7.7 mg/dL (8.4-10.2) L 12/15/16 07:33 Magnesium 2.10 mg/dL (1.7-2.3) 12/08/16 04:00 Total Bilirubin 2.00 mg/dL (0.1-1.2) H 12/08/16 04:00 AST 35 units/L (5-40) 12/08/16 04:00 ALT 37 units/L (7-56) 12/08/16 04:00 Alkaline Phosphatase 132 units/L (35-129) H 12/08/16 04:00 Ammonia 90.0 umol/L (25-60) H 12/08/16 11:50 Total Creatine Kinase 59 units/L (55-170) 12/02/16 19:23 CK-MB (CK-2) 1.9 ng/mL (0.0-4.0) 12/02/16 19:23 CK-MB (CK-2) Rel Index 3.2 (0-4) 12/02/16 19:23 Troponin T 0.098 ng/mL (0.00-0.029) H 12/03/16 08:01 Total Protein 5.6 g/dL (6.3-8.2) L 12/08/16 04:00 Albumin 2.6 g/dL (3.9-5) L 12/08/16 04:00 Albumin/Globulin Ratio 0.9 % 12/08/16 04:00 Triglycerides 72 mg/dL (2-149) 11/30/16 20:37 Cholesterol 132 mg/dL (50-199) 11/30/16 20:37 LDL Cholesterol Direct 82 mg/dL (50-130) 11/30/16 20:37 HDL Cholesterol 36 mg/dL (40-59) L 11/30/16 20:37 Cholesterol/HDL Ratio 3.66 % 11/30/16 20:37 TSH 0.764 mlU/mL (0.270-4.200) 12/08/16 11:50 Urine Color Yellow (Yellow) 11/30/16 10:00 Urine Turbidity Clear (Clear) 11/30/16 10:00 Urine pH 6.0 (5.0-7.0) 11/30/16 10:00 Ur Specific [place] 1.018 (1.003-1.030) 11/30/16 10:00 Urine Protein 30 mg/dl mg/dL (Negative) 11/30/16 10:00 Urine Glucose (UA) Neg mg/dL (Negative) 11/30/16 10:00 Urine Ketones Neg mg/dL (Negative) 11/30/16 10:00 Urine Blood Neg (Negative) 11/30/16 10:00 Urine Nitrite Neg (Negative) 11/30/16 10:00 Urine Bilirubin Neg (Negative) 11/30/16 10:00 Urine Urobilinogen < 2.0 mg/dL (<2.0) 11/30/16 10:00 Ur Leukocyte Esterase Tr (Negative) 11/30/16 10:00 Urine WBC (Auto) 2.0 /HPF (0.0-6.0) 11/30/16 10:00 Urine RBC (Auto) < 1.0 /HPF (0.0-6.0) 11/30/16 10:00 U Epithel Cells (Auto) < 1.0 /HPF (0-13.0) 11/30/16 10:00 Urine Eosinophils None seen (None Seen) 11/30/16 10:00 Urine Creatinine 78.6 mg/dL (0.1-20.0) H 11/30/16 10:00 Urine Sodium 10 mEq/L 11/30/16 10:00 Vancomycin Trough 19.0 ug/mL (5.0-20.0) 12/03/16 06:04 Random Vancomycin 24.7 ug/mL (0-40.0) 12/05/16 05:00 Hepatitis A IgM Ab Non-reactive (NonReactive) 12/08/16 12:20 Hep Bs Antigen Non-reactive (Negative) 12/08/16 12:20 Hep B Core IgM Ab Non-reactive (NonReactive) 12/08/16 12:20 Hepatitis C Antibody Non-reactive (NonReactive) 12/08/16 12:20 Blood Type B POSITIVE 12/07/16 16:09 Antibody Screen TNR 12/07/16 16:09 RHONDA Antibody Screen Negative 12/07/16 16:09 Crossmatch See Detail 12/07/16 16:09
--- NOTE | 2016-12-15 17:21 | Progress Note ---
Assessment and Plan 1. Oropharyngeal dysphagia - pt warrants PEG for long-term nutrition. - discussed risks with daughter, including CardioPulmonary risks. - will proceed. Subjective Date of service: 12/15/16 Principal diagnosis: bilateral leg wounds; TREMAINE Interval history: Pt poorly responsive, with Dobhoff in place. Daughter in room. Asked to see pt for G-tube placement due to risk of aspiration. Pt previously seen in Consult on 12/08, and had EGD on 12/09. Chart reviewed. Objective - Constitutional Vitals: Vital Signs - 12hr 12/15/16 12/15/16 12/15/16 05:59 07:42 07:52 Temperature 98.4 F Pulse Rate Pulse Rate [ 79 83 Anterior Bilateral Throughout] Pulse Rate [ 89 From Monitor] Respiratory 22 Rate Respiratory 20 20 Rate [Anterior Bilateral Throughout] Blood Pressure Blood Pressure 94/52 [Left Arm] O2 Sat by Pulse 100 98 Oximetry 12/15/16 12/15/16 12/15/16 08:22 09:20 10:00 Temperature 98.7 F Pulse Rate 82 Pulse Rate [ Anterior Bilateral Throughout] Pulse Rate [ 86 86 From Monitor] Respiratory 20 20 Rate Respiratory Rate [Anterior Bilateral Throughout] Blood Pressure Blood Pressure 100/50 [Left Arm] O2 Sat by Pulse 95 95 Oximetry 12/15/16 12/15/16 12/15/16 10:08 10:14 14:24 Temperature 98.7 F Pulse Rate 86 Pulse Rate [ 85 Anterior Bilateral Throughout] Pulse Rate [ 86 From Monitor] Respiratory 18 Rate Respiratory 20 Rate [Anterior Bilateral Throughout] Blood Pressure 100/50 Blood Pressure 100/50 [Left Arm] O2 Sat by Pulse 95 Oximetry General appearance: Present: no acute distress, other (Laying bed with Dobhoff in place) - EENT Eyes: PERRL, EOM intact - Respiratory Respiratory effort: normal Respiratory: bilateral: other (upper airway sounds bilaterally) - Cardiovascular Rhythm: regular Heart Sounds: Present: S1 & S2 - Gastrointestinal General gastrointestinal: Present: soft, non-tender, normal bowel sounds - Labs CBC & Chem 7: 12/14/16 05:00 12/15/16 07:33 Labs: Abnormal lab results 12/14/16 12/14/16 12/15/16 Range/Units 12:45 18:01 00:28 Sodium (137-145) mmol/L Chloride (98-107) mmol/L BUN (9-20) mg/dL Creatinine (0.8-1.5) mg/dL Glucose (75-100) mg/dL POC Glucose 275 H 140 H 136 H (70-105) Calcium (8.4-10.2) mg/dL 12/15/16 12/15/16 12/15/16 Range/Units 06:36 07:33 12:42 Sodium 134 L (137-145) mmol/L Chloride 96.5 L (98-107) mmol/L BUN 52 H (9-20) mg/dL Creatinine 2.9 H (0.8-1.5) mg/dL Glucose 190 H (75-100) mg/dL POC Glucose 262 H 270 H (70-105) Calcium 7.7 L (8.4-10.2) mg/dL
[2016-12-16] MEDS ORDERED: ceFAZolin 2 GM in NACL 0.9% 100 ML IV ONE (00:01)
[2016-12-16] MEDS: NOVOLOG SUB-Q SCH ×3 (00:50→11:44)
[2016-12-16 01:43] LABS: INR 1.17 (0.87-1.13)
[2016-12-16 01:48] LABS: Calcium 7.9 mg/dL (8.4-10.2); Chloride 94.5 mmol/L (98-107); Potassium 4.8 mmol/L (3.6-5.0)
[2016-12-16 08:47] LABS: Basophils % (Auto) 0.1 % (0.0-1.8); Hematocrit 22.7 % (35.5-45.6); Hemoglobin 7.4 gm/dl (11.8-15.2); Mean Corpuscular HGB Conc 33 % (32-34); Mean Corpuscular Hemoglobin 29 pg (28-32); Mean Corpuscular Volume 88 fl (84-94); Red Blood Count 2.59 M/mm3 (3.65-5.03); Red Cell Distribution Width 17.9 % (13.2-15.2)
[2016-12-16 09:06] LABS: Albumin 2.3 g/dL (3.9-5); Albumin/Globulin Ratio 0.7 %; BUN/Creatinine Ratio 16.92; Bilirubin,Total 1.9 mg/dL (0.1-1.2); Calcium 8.2 mg/dL (8.4-10.2); Chloride 97.6 mmol/L (98-107); Potassium 4.4 mmol/L (3.6-5.0); Total Protein 5.5 g/dL (6.3-8.2)
[2016-12-16] MEDS: XOPENEX IH SCH ×3 (09:09→23:21)
[2016-12-16 09:25] LABS: Platelet Count 85 K/mm3 (140-440)
[2016-12-16] MEDS: COREG PO SCH ×2 (09:30→22:20)
[2016-12-16] MEDS: DAKIN'S HALF STRENGTH TP SCH ×2 (09:43→22:21)
[2016-12-16] MEDS: PROTONIX FEEDTUBE SCH ×2 (09:43→22:20)
[2016-12-16] MEDS: LEVEMIR SUB-Q SCH (09:43)
[2016-12-16] MEDS: TRIPLE ANTIBIOTIC TP SCH (09:44)
[2016-12-16] MEDS ORDERED: NACL 0.9% 1000 ML 1,000 ML IV SCH (10:00)
[2016-12-16] MEDS ORDERED: ANCEF/STERILE WATER 2 GM/20 ML 2 GM/20 ML SYRINGE IV NR (10:00)
--- NOTE | 2016-12-16 10:01 | Progress Note ---
Assessment and Plan Acute respiratory failure-->extubated 12/11 management per pulmonary Status post cardiac arrest Acute on chronic systolic heart failure Echo 12/03/16: EF 15-20%, restrictive filling patten, mild-moderate MR dialysis per nephrology continue coreg 6.25mg BID Ccrdiomyopathy s/p AICD Coronary artery disease Peripheral vascular disease with left leg ulcer Hypertension Hyperlipidemia Diabetes End-stage renal disease on hemodialysis Anemia Continue current management. Patient is cleared for PEG placement with moderate risk from a cardiac standpoint. Close BP and cardiac monitoring is recommended. The patient has been seen in conjunction with Dr. Fowler who agrees with the assessment and plan of care. Subjective Date of service: 12/16/16 Principal diagnosis: bilateral leg wounds; TREMAINE Interval history: The patient is resting in bed. No-verbal. No acute distress noted. Paced rhythm on the monitor. Awaiting PEG placement today. Objective Last Vital Signs Temp 97.6 F 12/16/16 05:43 Pulse 83 12/16/16 05:43 Resp 20 12/16/16 05:43 BP 96/53 12/16/16 05:43 Pulse Ox 100 12/16/16 05:43 - Physical Examination General: No Apparent Distress (lethargic but arousable) HEENT: Positive: Normocephaly, Mucus Membranes Moist Neck: Positive: neck supple, trachea midline Cardiac: Positive: Reg Rate and Rhythm, S1/S2 Lungs: Positive: Rhonchi Neuro: Positive: Other (lethargic but arousable, no verbal response) Abdomen: Positive: Soft, Active Bowel Sounds Skin: Positive: Clear, Other (Multiple ulcers in the legs - Dressing in situ.). Negative: Rash Musculoskeletal: other (Dressing in situ (multiple ulcers in the legs).) Extremities: Absent: lower extr. pulses, edema (bilateral LE dressings intact) - Labs and Meds Cardiac Enzymes 12/16/16 Range/Units 08:25 AST 23 (5-40) units/L Coagulation 12/16/16 Range/Units 01:09 PT 15.5 H (12.2-14.9) Sec. INR 1.17 H (0.87-1.13) CBC 12/16/16 Range/Units 08:25 WBC 10.0 (4.5-11.0) K/mm3 RBC 2.59 L (3.65-5.03) M/mm3 Hgb 7.4 L (11.8-15.2) gm/dl Hct 22.7 L (35.5-45.6) % Plt Count 85 L (140-440) K/mm3 Lymph # 0.4 L (1.2-5.4) K/mm3 [place] # 1.4 H (0.0-0.8) K/mm3 Eos # 0.0 (0.0-0.4) K/mm3 Baso # 0.0 (0.0-0.1) K/mm3 Comprehensive Metabolic Panel 12/16/16 12/16/16 Range/Units 01:09 08:25 Sodium 134 L 136 L (137-145) mmol/L Potassium 4.8 4.4 (3.6-5.0) mmol/L Chloride 94.5 L 97.6 L (98-107) mmol/L Carbon Dioxide 29 27 (22-30) mmol/L BUN 63 H 66 H (9-20) mg/dL Creatinine 3.0 H 3.9 H (0.8-1.5) mg/dL Glucose 230 H 109 H (75-100) mg/dL Calcium 7.9 L 8.2 L (8.4-10.2) mg/dL AST 23 (5-40) units/L ALT 32 (7-56) units/L Alkaline Phosphatase 104 (35-129) units/L Total Protein 5.5 L (6.3-8.2) g/dL Albumin 2.3 L (3.9-5) g/dL - Imaging and Cardiology EKG: report reviewed, image reviewed (12/03/2016 severe LV dysfunction by ventricle dysfunction EF 15-20% mild to moderate mitral regurgitation mild to moderate tricuspid regurgitation with pulmonary hypertension) Echo: report reviewed (12/03/16: EF 15-20%, restrictive filling patten, mild- moderate MR), image reviewed - Telemetry EKG Rhythm: Paced
--- NOTE | 2016-12-16 10:09 | Progress Note ---
Subjective Principal diagnosis: bilateral leg wounds; TREMAINE Interval history: Patient was seen today for follow-up on multiple renal related issues Events noted, he was seen around 7:45 in the morning Condition remains unchanged Pending feeding tube placement No acute distress Vitals labs intake output medications reviewed Social history: Reviewed Family history: Reviewed Physical examination Vitals: Reviewed HEENT: Oral mucosa moist Neck: Supple no JVD Chest: Clear to auscultation no crackles Heart: Regular rate and rhythm S1 and S2 heard Abdomen: Soft nontender bowel sounds present Extremity: Mild edema dry skin Dermatology; dry skin Psychiatry: No evidence of agitation or aggression Assessment and plan; Acute kidney injury in a patient who is currently oliguric/no significant improvement in renal function patient is on Monday schedule for dialysis Continue with renal replacement therapy as tolerated I had a detailed discussion with his daughter about his comorbidities and high mortality risk I did also suggest about palliative care/hospice to consider Respiratory failure currently extubated as of December 11 Bad cardiomyopathy with ejection fraction of 15-20% status post cardiac arrest currently being followed by cardiology Status post AICD placement with prior history of PAD CAD hypertension diabetes Monitor dialysis related labs Multiorgan failure overall prognosis appears to be very poor high mortality risk this has been discussed with patient's as well Periodically monitor renal related labs We'll continue to follow and make recommendation from renal standpoin Objective - Vital Signs Vital signs: Vital Signs - 12hr 12/15/16 12/15/16 12/15/16 22:45 22:46 22:54 Temperature Pulse Rate 80 Pulse Rate [ From Monitor] Pulse Rate [ 97 H Posterior Bilateral Throughout] Respiratory Rate Respiratory 16 Rate [Posterior Bilateral Throughout] Blood Pressure 99/58 Blood Pressure [Left Arm] O2 Sat by Pulse 100 Oximetry 12/16/16 12/16/16 00:00 05:43 Temperature 97.7 F 97.6 F Pulse Rate Pulse Rate [ 80 83 From Monitor] Pulse Rate [ Posterior Bilateral Throughout] Respiratory 22 20 Rate Respiratory Rate [Posterior Bilateral Throughout] Blood Pressure Blood Pressure 99/58 96/53 [Left Arm] O2 Sat by Pulse 100 100 Oximetry - Lab 12/16/16 08:25 12/16/16 08:25 Most recent lab results Calcium 8.2 mg/dL (8.4-10.2) L 12/16/16 08:25 Magnesium 2.10 mg/dL (1.7-2.3) 12/08/16 04:00 Urine Creatinine 78.6 mg/dL (0.1-20.0) H 11/30/16 10:00 Urine Sodium 10 mEq/L 11/30/16 10:00
[2016-12-16] MEDS ORDERED: PROVENTIL IH NR (10:30)
--- NOTE | 2016-12-16 10:32 | Anesthesia Consultation ---
Anesthesia Consult and Med Hx Date of service: 12/16/16 - Airway Anesthetic Teeth Evaluation: Poor ROM Head & Neck: Adequate Mental/Hyoid Distance: Adequate Mallampati Class: Class II Intubation Access Assessment: Probably Good - Pre-Operative Health Status ASA Pre-Surgery Classification: ASA4 Proposed Anesthetic Plan: MAC - Pulmonary Hx Smoking: Yes (CIGARETTES < 1 PPD X 14 YRS, QUIT IN 1979) Hx Asthma: No Hx Respiratory Symptoms: Yes (rales, respiratory failure) SOB: Yes COPD: Yes Home Oxygen Therapy: No (currently on 2 l/m) Hx Sleep Apnea: Yes (CPAP) - Cardiovascular System Hx Hypertension: Yes Hx Coronary Artery Disease: Yes (s/p CABG) Hx Heart Attack/AMI: No (s/p cardiac arrest) Hx Angina: Yes (Cardiomiopathy, dropping EF, last EF -25%) Hx Percutaneous Transluminal Coronary Angioplasty (PTCA): Yes Hx Pacemaker: Yes Hx Internal Defibrillator: Yes (IMPLANTED 03-27-14) Hx Peripheral Vascular Disease: Yes (legs ulcers) - Central Nervous System CVA: No (altered mental status, following cardiac arrest, CPR ) Hx Psychiatric Problems: No - Gastrointestinal Hx Gastroesophageal Reflux Disease: Yes (dysphgea, NG tube in place) - Endocrine Hx End Stage Renal Disease: Yes (on dialysis) Hx Insulin Dependent Diabetes: Yes - Hematic Hx Anemia: Yes - Other Systems Hx Cancer: No
--- NOTE | 2016-12-16 10:33 | Anesthesia Day of Surgery ---
Anesthesia Day of Surgery - Day of Surgery Patient Examined: Yes Patient H&P Reviewed: Yes Patient is NPO: Yes Beta Blockers: Yes Cardiac Clearance: Yes
[2016-12-16] MEDS ORDERED: WATER FOR IRRIG STERILE IR ONE (10:53)
[2016-12-16] MEDS ORDERED: XYLOCAINE MPF 2% ONE (11:00)
--- NOTE | 2016-12-16 11:33 | Progress Note ---
Assessment and Plan Assessment and plan: S/P cardiac arrest - Patient extubated on 12/11 - Patient is drowsy - On NG tube feeding, Speech evaluations done and failed - will have EGD today Bilateral DM leg ulcer - treated with IV rocephin for 10days - On topical antibacterials DM - Sliding scale insulin Acute on chronic kidney disease - patient is on dialysis MWF - Nephrology following Hypertension - Doesn't need antihypertensive medication CAD Chronic systolic heart failure a.fib - Low-dose carvedilol - Cardiology following Thrombocytopenia - We will monitor - Hem/Onc consult appreciated GI bleed - Secondary to gastritis/tendinitis - Continue PPI - hemoglobin this morning is 7.4 Diarrhea - C. difficile nagative Severe Malnutrition with cachexia DVT prophylaxis - SCD Disposition - home hospice after PEG placement. History Interval history: Patient was seen and evaluated this morning, patient is drowsy. I discussed the management plan in detail with his daughter who is the decision maker. Hospitalist Physical - Physical exam Narrative exam: Patient extubated on 12/11. On NG tube feeding, open his eyes. The patient appeared well nourished and normally developed. Vital signs as documented. Head exam is unremarkable. No scleral icterus . Neck is without jugular venous distension, thyromegaly, or carotid bruits. Lungs gurgling sound and wheezing on the lower lung zones. Cardiac exam reveals regular rate and Rhythm. First and second heart sounds normal. No murmurs, rubs or gallops. Abdominal exam reveals normal bowel sounds, no masses, no organomegaly and no aortic enlargement. Extremities significant for bilateral leg ulcer around the calf area, clean dressing around it. Edema in the upper extremities. 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 - Constitutional Vitals: Temp Pulse Resp BP Pulse Ox 97.1 F L 81 16 104/54 97 12/16/16 10:23 12/16/16 10:23 12/16/16 10:23 12/16/16 10:23 12/16/16 10:23 General appearance: Present: no acute distress, other (Laying bed with Dobhoff in place) Results - Labs CBC & Chem 7: 12/16/16 08:25 12/16/16 08:25 Labs: Laboratory Last Values WBC 10.0 K/mm3 (4.5-11.0) 12/16/16 08:25 RBC 2.59 M/mm3 (3.65-5.03) L 07/07/17 08:25 Hgb 7.4 gm/dl (11.8-15.2) L 12/16/16 08:25 Hct 22.7 % (35.5-45.6) L 12/16/16 08:25 MCV 88 fl (84-94) D 12/16/16 08:25 MCH 29 pg (28-32) 12/16/16 08:25 MCHC 33 % (32-34) 12/16/16 08:25 RDW 17.9 % (13.2-15.2) H 12/16/16 08:25 Plt Count 85 K/mm3 (140-440) L 12/16/16 08:25 Lymph % (Auto) 4.3 % (13.4-35.0) L 12/16/16 08:25 [place] % (Auto) 13.8 % (0.0-7.3) H 12/16/16 08:25 Eos % (Auto) 0.0 % (0.0-4.3) 12/16/16 08:25 Baso % (Auto) 0.1 % (0.0-1.8) 12/16/16 08:25 Lymph # 0.4 K/mm3 (1.2-5.4) L 12/16/16 08:25 [place] # 1.4 K/mm3 (0.0-0.8) H 12/16/16 08:25 Eos # 0.0 K/mm3 (0.0-0.4) 12/16/16 08:25 Baso # 0.0 K/mm3 (0.0-0.1) 12/16/16 08:25 Add Manual Diff Complete 12/12/16 06:30 Total Counted 100 12/12/16 06:30 Seg Neutrophils % 81.8 % (40.0-70.0) H 12/16/16 08:25 Seg Neuts % (Manual) 99.0 % (40.0-70.0) H 12/12/16 06:30 Band Neutrophils % 0 % 12/12/16 06:30 Lymphocytes % (Manual) 0 % (13.4-35.0) L 12/12/16 06:30 Reactive Lymphs % (Man) 0 % 12/12/16 06:30 Monocytes % (Manual) 1.0 % (0.0-7.3) 12/12/16 06:30 Eosinophils % (Manual) 0 % (0.0-4.3) 12/12/16 06:30 Basophils % (Manual) 0 % (0.0-1.8) 12/12/16 06:30 Metamyelocytes % 0 % 12/12/16 06:30 Myelocytes % 0 % 12/12/16 06:30 Promyelocytes % 0 % 12/12/16 06:30 Blast Cells % 0 % 12/12/16 06:30 Nucleated RBC % 1.0 % (0.0-0.9) H 12/12/16 06:30 Seg Neutrophils # 8.2 K/mm3 (1.8-7.7) H 12/16/16 08:25 Seg Neutrophils # Man 11.2 K/mm3 (1.8-7.7) H 12/12/16 06:30 Band Neutrophils # 0.0 K/mm3 12/12/16 06:30 Lymphocytes # (Manual) 0.0 K/mm3 (1.2-5.4) L 12/12/16 06:30 Abs React Lymphs (Man) 0.0 K/mm3 12/12/16 06:30 Monocytes # (Manual) 0.1 K/mm3 (0.0-0.8) 12/12/16 06:30 Eosinophils # (Manual) 0.0 K/mm3 (0.0-0.4) 12/12/16 06:30 Basophils # (Manual) 0.0 K/mm3 (0.0-0.1) 12/12/16 06:30 Metamyelocytes # 0.0 K/mm3 12/12/16 06:30 Myelocytes # 0.0 K/mm3 12/12/16 06:30 Promyelocytes # 0.0 K/mm3 12/12/16 06:30 Blast Cells # 0.0 K/mm3 12/12/16 06:30 WBC Morphology Not Reportable 12/12/16 06:30 Hypersegmented Neuts Not Reportable 12/12/16 06:30 Hyposegmented Neuts Not Reportable 12/12/16 06:30 Hypogranular Neuts Not Reportable 12/12/16 06:30 Smudge Cells Not Reportable 12/12/16 06:30 Toxic Granulation Not Reportable 12/12/16 06:30 Toxic Vacuolation Not Reportable 12/12/16 06:30 Dohle Bodies Not Reportable 12/12/16 06:30 Pelger-Huet Anomaly Not Reportable 12/12/16 06:30 Demetra Rods Not Reportable 12/12/16 06:30 Platelet Estimate Consistent w auto 12/12/16 06:30 Clumped Platelets Not Reportable 12/12/16 06:30 Plt Clumps, EDTA Not Reportable 12/12/16 06:30 Large Platelets Not Reportable 12/12/16 06:30 Giant Platelets Not Reportable 12/12/16 06:30 Platelet Satelliting Not Reportable 12/12/16 06:30 Plt Morphology Comment Not Reportable 12/12/16 06:30 RBC Morphology Not Reportable 12/12/16 06:30 Dimorphic RBCs Not Reportable 12/12/16 06:30 Polychromasia Not Reportable 12/12/16 06:30 Hypochromasia Few 12/12/16 06:30 Poikilocytosis Not Reportable 12/12/16 06:30 Anisocytosis 1+ 12/12/16 06:30 Microcytosis Not Reportable 12/12/16 06:30 Macrocytosis Not Reportable 12/12/16 06:30 Spherocytes Not Reportable 12/12/16 06:30 Pappenheimer Bodies Not Reportable 12/12/16 06:30 Sickle Cells Not Reportable 12/12/16 06:30 Target Cells Few 12/12/16 06:30 Tear Drop Cells Not Reportable 12/12/16 06:30 Ovalocytes Not Reportable 12/12/16 06:30 Helmet Cells Not Reportable 12/12/16 06:30 Don-[place]ocola Bodies Not Reportable 12/12/16 06:30 [place] Rings Not Reportable 12/12/16 06:30 Genia Cells Not Reportable 12/12/16 06:30 Bite Cells Not Reportable 12/12/16 06:30 Crenated Cell Not Reportable 12/12/16 06:30 Elliptocytes Not Reportable 12/12/16 06:30 Acanthocytes (Spur) Not Reportable 12/12/16 06:30 Rouleaux Not Reportable 12/12/16 06:30 Hemoglobin C Crystals Not Reportable 12/12/16 06:30 Schistocytes Not Reportable 12/12/16 06:30 Malaria parasites Not Reportable 12/12/16 06:30 Romeo Bodies Not Reportable 12/12/16 06:30 Hem Pathologist Commnt No 12/12/16 06:30 PT 15.5 Sec. (12.2-14.9) H 12/16/16 01:09 INR 1.17 (0.87-1.13) H 12/16/16 01:09 APTT 45.4 Sec. (24.2-36.6) H 12/02/16 19:20 Heparin Anti-Xa Level < 0.10 U.I./ml (0.3-0.7) L 12/03/16 01:15 POC ABG pH 7.517 (7.35-7.45) H 12/11/16 09:05 POC ABG pCO2 32.2 (35-45) L 12/11/16 09:05 POC ABG pO2 97 (80-105) 12/11/16 09:05 POC ABG HCO3 26.1 12/11/16 09:05 POC ABG Total CO2 27 12/11/16 09:05 POC ABG O2 Sat 98 12/11/16 09:05 POC ABG Base Excess 3 12/11/16 09:05 FiO2 30 % 12/11/16 09:05 Sodium 136 mmol/L (137-145) L 12/16/16 08:25 Potassium 4.4 mmol/L (3.6-5.0) 12/16/16 08:25 Chloride 97.6 mmol/L (98-107) L 12/16/16 08:25 Carbon Dioxide 27 mmol/L (22-30) 12/16/16 08:25 Anion Gap 16 mmol/L 12/16/16 08:25 BUN 66 mg/dL (9-20) H 12/16/16 08:25 Creatinine 3.9 mg/dL (0.8-1.5) H 12/16/16 08:25 Estimated GFR 19 ml/min 12/16/16 08:25 BUN/Creatinine Ratio 16.92 % 12/16/16 08:25 Glucose 109 mg/dL (75-100) H 12/16/16 08:25 POC Glucose 154 (70-105) H 12/16/16 05:56 Hemoglobin A1c 10.6 % (4-6) H 11/28/16 16:02 Lactic Acid 2.60 mmol/L (0.7-2.0) H* 12/04/16 13:22 Calcium 8.2 mg/dL (8.4-10.2) L 12/16/16 08:25 Magnesium 2.10 mg/dL (1.7-2.3) 12/08/16 04:00 Total Bilirubin 1.90 mg/dL (0.1-1.2) H 12/16/16 08:25 AST 23 units/L (5-40) 12/16/16 08:25 ALT 32 units/L (7-56) 12/16/16 08:25 Alkaline Phosphatase 104 units/L (35-129) 12/16/16 08:25 Ammonia 90.0 umol/L (25-60) H 12/08/16 11:50 Total Creatine Kinase 59 units/L (55-170) 12/02/16 19:23 CK-MB (CK-2) 1.9 ng/mL (0.0-4.0) 12/02/16 19:23 CK-MB (CK-2) Rel Index 3.2 (0-4) 12/02/16 19:23 Troponin T 0.098 ng/mL (0.00-0.029) H 12/03/16 08:01 Total Protein 5.5 g/dL (6.3-8.2) L 12/16/16 08:25 Albumin 2.3 g/dL (3.9-5) L 12/16/16 08:25 Albumin/Globulin Ratio 0.7 % 12/16/16 08:25 Triglycerides 72 mg/dL (2-149) 11/30/16 20:37 Cholesterol 132 mg/dL (50-199) 11/30/16 20:37 LDL Cholesterol Direct 82 mg/dL (50-130) 11/30/16 20:37 HDL Cholesterol 36 mg/dL (40-59) L 11/30/16 20:37 Cholesterol/HDL Ratio 3.66 % 11/30/16 20:37 TSH 0.764 mlU/mL (0.270-4.200) 12/08/16 11:50 Urine Color Yellow (Yellow) 11/30/16 10:00 Urine Turbidity Clear (Clear) 11/30/16 10:00 Urine pH 6.0 (5.0-7.0) 11/30/16 10:00 Ur Specific [place] 1.018 (1.003-1.030) 11/30/16 10:00 Urine Protein 30 mg/dl mg/dL (Negative) 11/30/16 10:00 Urine Glucose (UA) Neg mg/dL (Negative) 11/30/16 10:00 Urine Ketones Neg mg/dL (Negative) 11/30/16 10:00 Urine Blood Neg (Negative) 11/30/16 10:00 Urine Nitrite Neg (Negative) 11/30/16 10:00 Urine Bilirubin Neg (Negative) 11/30/16 10:00 Urine Urobilinogen < 2.0 mg/dL (<2.0) 11/30/16 10:00 Ur Leukocyte Esterase Tr (Negative) 11/30/16 10:00 Urine WBC (Auto) 2.0 /HPF (0.0-6.0) 11/30/16 10:00 Urine RBC (Auto) < 1.0 /HPF (0.0-6.0) 11/30/16 10:00 U Epithel Cells (Auto) < 1.0 /HPF (0-13.0) 11/30/16 10:00 Urine Eosinophils None seen (None Seen) 11/30/16 10:00 Urine Creatinine 78.6 mg/dL (0.1-20.0) H 11/30/16 10:00 Urine Sodium 10 mEq/L 11/30/16 10:00 Vancomycin Trough 19.0 ug/mL (5.0-20.0) 12/03/16 06:04 Random Vancomycin 24.7 ug/mL (0-40.0) 12/05/16 05:00 Hepatitis A IgM Ab Non-reactive (NonReactive) 12/08/16 12:20 Hep Bs Antigen Non-reactive (Negative) 12/08/16 12:20 Hep B Core IgM Ab Non-reactive (NonReactive) 12/08/16 12:20 Hepatitis C Antibody Non-reactive (NonReactive) 12/08/16 12:20 Blood Type B POSITIVE 12/07/16 16:09 Antibody Screen TNR 12/07/16 16:09 RHONDA Antibody Screen Negative 12/07/16 16:09 Crossmatch See Detail 12/07/16 16:09
[2016-12-16] MEDS ORDERED: ANCEF/STERILE WATER 2 GM/20 ML IV ONE (11:35)
[2016-12-16] MEDS ORDERED: AMIDATE IV ONE (11:35)
--- NOTE | 2016-12-16 12:06 | Post Operative Note ---
Pre-op diagnosis: Oropharyngeal dysphagia Post-op diagnosis: other (Successful G-tube placement, vallecular erosion) Findings: 1. Normal EGD except mild diffuse gastritis. 2. Successful G-tube placement. 3. Eroded area posterior to vocal cords, in vallecular region, c/w inflammation or trauma from instrumentation Procedure: EGD/PEG Anesthesia: MAC Surgeon: JOSÉ LAGUNAS Estimated blood loss: minimal Pathology: none Condition: stable Disposition: floor (1. May initiate TF. 2. Vallecular erosion may be monitored clinically, and seen as outpatient by ENT)
--- NOTE | 2016-12-16 14:24 | Post Anesthesia Evaluation ---
- Post Anesthesia Evaluation Patient Participated: Yes Airway Patent: Yes Stable Respiratory Function: Yes Nausea/Vomiting: No Temp > 96.8F: Yes Pain Manageable: Yes Adequeate Hydration: Yes Anesthesia Complications: No Block Receding Appropriately: Not Applicable Patient on Ventilator: No
[2016-12-16] MEDS: ALBURX 25% (ALBUMIN) IV PRN (15:00)
[2016-12-16] MEDS ORDERED: NACL 0.9 (PRIMING MACHINE ONLY DIALYSIS) MC ONE (16:35)
[2016-12-16] MEDS: HEPARIN IV PRN (17:17)
[2016-12-16] MEDS: TYLENOL PO PRN (22:19)
[2016-12-17] MEDS: NOVOLOG SUB-Q SCH ×4 (00:31→18:23)
--- NOTE | 2016-12-17 08:47 | Gastroenterology Progress Note ---
Assessment and Plan GI: s/p peg without obvious complications - ok to use as needed - will sign off, call if needed Subjective Date of service: 12/17/16 Principal diagnosis: bilateral leg wounds; TREMAINE Interval history: - no GI issues overnight Objective - Constitutional Vitals: Temp Pulse Resp BP Pulse Ox 98.2 F 84 18 100/68 99 12/17/16 05:41 12/17/16 05:41 12/17/16 05:41 12/17/16 05:41 12/17/16 05:41 General appearance: no acute distress - Respiratory Respiratory: bilateral: CTA - Cardiovascular Rhythm: regular Heart Sounds: Present: S1 & S2 - Gastrointestinal General gastrointestinal: Present: soft, non-tender - Labs CBC & Chem 7: 12/16/16 08:25 12/16/16 08:25 Labs: Laboratory Results - last 24 hr 12/16/16 12/16/16 12/16/16 08:25 08:25 19:12 WBC 10.0 RBC 2.59 L Hgb 7.4 L Hct 22.7 L MCV 88 D MCH 29 MCHC 33 RDW 17.9 H Plt Count 85 L Lymph % (Auto) 4.3 L [place] % (Auto) 13.8 H Eos % (Auto) 0.0 Baso % (Auto) 0.1 Lymph # 0.4 L [place] # 1.4 H Eos # 0.0 Baso # 0.0 Seg Neutrophils % 81.8 H Seg Neutrophils # 8.2 H Sodium 136 L Potassium 4.4 Chloride 97.6 L Carbon Dioxide 27 Anion Gap 16 BUN 66 H Creatinine 3.9 H Estimated GFR 19 BUN/Creatinine Ratio 16.92 Glucose 109 H POC Glucose 123 H Calcium 8.2 L Total Bilirubin 1.90 H AST 23 ALT 32 Alkaline Phosphatase 104 Total Protein 5.5 L Albumin 2.3 L Albumin/Globulin Ratio 0.7 12/16/16 12/17/16 23:30 06:36 WBC RBC Hgb Hct MCV MCH MCHC RDW Plt Count Lymph % (Auto) [place] % (Auto) Eos % (Auto) Baso % (Auto) Lymph # [place] # Eos # Baso # Seg Neutrophils % Seg Neutrophils # Sodium Potassium Chloride Carbon Dioxide Anion Gap BUN Creatinine Estimated GFR BUN/Creatinine Ratio Glucose POC Glucose 140 H 142 H Calcium Total Bilirubin AST ALT Alkaline Phosphatase Total Protein Albumin Albumin/Globulin Ratio
[2016-12-17] MEDS: DAKIN'S HALF STRENGTH TP SCH ×2 (10:05→22:42)
[2016-12-17] MEDS: COREG PO SCH ×2 (10:05→22:41)
[2016-12-17] MEDS: LEVEMIR SUB-Q SCH (10:10)
[2016-12-17] MEDS: PROTONIX FEEDTUBE SCH ×2 (10:10→22:42)
[2016-12-17] MEDS: TRIPLE ANTIBIOTIC TP SCH (10:10)
[2016-12-17 10:24] LABS: Hematocrit 21.3 % (35.5-45.6); Hemoglobin 6.8 gm/dl (11.8-15.2); Mean Corpuscular HGB Conc 32 % (32-34); Mean Corpuscular Hemoglobin 28 pg (28-32); Mean Corpuscular Volume 87 fl (84-94); Red Blood Count 2.44 M/mm3 (3.65-5.03); Red Cell Distribution Width 18.6 % (13.2-15.2); White Blood Count 10.1 K/mm3 (4.5-11.0)
[2016-12-17 10:27] LABS: Platelet Count 78 K/mm3 (140-440)
[2016-12-17 10:46] LABS: BUN/Creatinine Ratio 13.87; Chloride 98.9 mmol/L (98-107); Potassium 4.3 mmol/L (3.6-5.0)
[2016-12-17 10:51] LABS: Calcium 8.2 mg/dL (8.4-10.2)
--- NOTE | 2016-12-17 11:18 | Progress Note ---
Subjective Principal diagnosis: bilateral leg wounds; TREMAINE Interval history: Patient was seen today for follow-up on multiple renal related issues Overall doing poorly condition remains unchanged Events of 24 hours vitals labs intake output medications were reviewed Patient is currently dialysis dependent Social history: Reviewed Family history: Reviewed Physical examination Vitals: Reviewed HEENT: Oral mucosa moist Neck: Supple no JVD Chest: Clear to auscultation no crackles Heart: Regular rate and rhythm S1 and S2 heard Abdomen: Soft nontender bowel sounds present Extremity: Mild edema dry skin Dermatology; dry skin Psychiatry: No evidence of agitation or aggression Assessment and plan; Acute kidney injury in a patient who is currently oliguric/no significant improvement in renal function patient is on Monday schedule for dialysis, ultrafiltration only as tolerated to keep systolic above 100 and heart rate under 100 Monitor for any signs of renal function recovery/urine output closely I had a detailed discussion with his daughter about his comorbidities and high mortality risk Respiratory failure currently extubated as of December 11 Bad cardiomyopathy with ejection fraction of 15-20% status post cardiac arrest currently being followed by cardiology Status post AICD placement with prior history of PAD CAD hypertension diabetes Monitor dialysis related labs Multiorgan failure overall prognosis appears to be very poor high mortality risk this has been discussed with patient's as well Periodically monitor renal related labs We'll continue to follow and make recommendation from renal standpoin Objective - Vital Signs Vital signs: Vital Signs - 12hr 12/16/16 12/16/16 12/16/16 23:21 23:24 23:35 Temperature Pulse Rate [ From Monitor] Pulse Rate [ 81 85 Posterior Bilateral Throughout] Respiratory Rate Respiratory 17 16 Rate [Posterior Bilateral Throughout] Blood Pressure [Left Arm] O2 Sat by Pulse 100 Oximetry 12/17/16 12/17/16 12/17/16 00:48 05:41 07:55 Temperature 98.6 F 98.2 F 98.5 F Pulse Rate [ 79 84 87 From Monitor] Pulse Rate [ Posterior Bilateral Throughout] Respiratory 18 18 18 Rate Respiratory Rate [Posterior Bilateral Throughout] Blood Pressure 98/54 100/68 85/54 [Left Arm] O2 Sat by Pulse 98 99 100 Oximetry - Lab 12/17/16 10:09 12/17/16 10:09 Most recent lab results Calcium 8.2 mg/dL (8.4-10.2) L 12/17/16 10:09 Magnesium 2.10 mg/dL (1.7-2.3) 12/08/16 04:00 Urine Creatinine 78.6 mg/dL (0.1-20.0) H 11/30/16 10:00 Urine Sodium 10 mEq/L 11/30/16 10:00
--- NOTE | 2016-12-17 11:41 | Consultation ---
History of Present Illness - Reason for Consult Consult date: 12/17/16 bilateral lower extremity wounds - History of Present Illness This is a very sick patient who was admitted to the hospital with cardiac arrest. Was able to be resuscitated. Patient has a lot of comorbid conditions and is being considered for hospice. Patient is nonverbal and is not able to give any history. Patient has significant bilateral lower extremity ulcers and skin necrosis. Past History Past Medical History: CAD, diabetes, hypertension, hyperlipidemia, PVD, renal failure (not presently on hemodialysis) Past Surgical History: CABG (1996), Other (AICD placement, back sugery 1996) Social history: lives with family, full code. denies: smoking (quit x20 years, ), alcohol abuse, prescription drug abuse Family history: CAD, cancer, diabetes, hypertension Medications and Allergies Allergies Allergy/AdvReac Type Severity Reaction Status Date / Time lisinopril Allergy Mild Unknown Verified 08/08/14 11:26 pollen extracts AdvReac COUGH,SNEEZ Unverified 11/28/16 13:22 E Home Medications Medication Instructions Recorded Confirmed Last Taken Type Carvedilol [Coreg] 25 mg PO BID 08/21/13 12/05/16 11/28/16 History Doxazosin Mesylate 8 mg PO DAILY 08/21/13 12/05/16 11/28/16 History Insulin Glargine,Hum.rec.anlog 30 unit PO QDAY 08/21/13 12/05/16 05/28/14 History [Lantus Solostar] Isosorbide Dinitrate 30 mg PO DAILY 08/21/13 12/05/16 11/28/16 History Ranolazine [Ranexa] 1,000 mg PO BID 08/21/13 12/05/16 11/28/16 History Atorvastatin Calcium [Lipitor] 40 mg PO DAILY 12/25/13 12/05/16 11/28/16 History amLODIPine [Norvasc] 5 mg PO DAILY 03/27/14 12/05/16 11/28/16 History Epoetin Shorty [Procrit] 4,000 unit SQ QMONTH 08/08/14 12/05/16 08/04/14 History 4000 units Multivitamin [Multi-Vitamin Daily] 1 tab PO DAILY 08/08/14 12/05/16 11/28/16 History Albuterol Sulfate [Proventil HFA] 2 puff IH Q4H PRN #1 pump 08/13/14 12/05/16 Unknown Rx Insulin Aspart [NovoLOG 100 5 unit SQ AC #1 vial 08/13/14 12/05/16 Unknown Rx UNITS/ML] Metolazone 5 mg PO DAILY 30 Days 08/13/14 12/05/16 11/28/16 Rx Active Meds: Active Medications Acetaminophen (Tylenol) 650 mg PO Q4H PRN PRN Reason: Pain MILD(1-3)/Fever >100.5/DANG Last Admin: 12/16/16 22:19 Dose: 650 mg Albumin Human (Alburx 25% (Albumin)) 25 gm IV MAYELIN PRN PRN Reason: Hypotension Last Admin: 12/16/16 15:00 Dose: 25 gm Lipase/Protease/Amylase (Pancreaze Dr 10,500 Unit) 1 each FEEDTUBE PRN PRN PRN Reason: For Clogged Feeding Tube Atorvastatin Calcium (Lipitor) 40 mg PO QHS KYLAH Last Admin: 12/16/16 22:20 Dose: 40 mg Bisacodyl (Dulcolax) 10 mg SC QDAY PRN PRN Reason: Constipation unrelieved by MOM Carvedilol (Coreg) 6.25 mg PO BID [facility] Last Admin: 12/16/16 22:20 Dose: 6.25 mg Dextrose (D50w (25gm)) 50 ml IV PRN PRN PRN Reason: Hypoglycemia Last Admin: 12/03/16 06:30 Dose: 50 ml Haloperidol Lactate (Haldol) 2.5 mg IV Q6H PRN PRN Reason: Agitation Last Admin: 12/15/16 00:16 Dose: 2.5 mg Heparin Sodium (Porcine) (Heparin) 5,000 unit IV MAYELIN PRN PRN Reason: hemodialysis Last Admin: 12/16/16 17:17 Dose: 5,000 unit Hydrophilic Ointment (Vaseline Lip Therapy) 1 applic TP DIRECT PRN PRN Reason: Dry Lips Last Admin: 12/11/16 00:28 Dose: 1 applic Sodium Chloride (Nacl 0.9%) 100 mls @ 999 mls/hr IV MAYELIN PRN PRN Reason: Hypotension Sodium Chloride (Nacl 0.9% 1000 Ml) 1,000 mls @ 50 mls/hr IV DIRECT KYLAH Last Admin: 12/16/16 10:43 Dose: 50 mls/hr Insulin Aspart (Novolog) 0 units SUB-Q Q6HR KYLAH PRN Reason: Protocol Last Admin: 12/17/16 08:38 Dose: Not Given Insulin Detemir (Levemir) 5 units SUB-Q DAILY [facility] Last Admin: 12/16/16 09:43 Dose: Not Given Levalbuterol HCl (Xopenex) 0.63 mg IH TIDRT [facility] Last Admin: 12/16/16 23:21 Dose: 0.63 mg Neomycin/Polymyxin/Bacitracin (Triple Antibiotic) 1 applic TP DAILY [facility] Last Admin: 12/16/16 09:44 Dose: Not Given Ondansetron HCl (Zofran) 4 mg IV Q8H PRN PRN Reason: Nausea And Vomiting Last Admin: 12/01/16 17:45 Dose: 4 mg Pantoprazole (Protonix) 40 mg FEEDTUBE BID [facility] Last Admin: 12/16/16 22:20 Dose: 40 mg Simple Syrup (Simple Syrup) 15 ml FEEDTUBE PRN PRN PRN Reason: Hypoglycemia Last Admin: 12/09/16 00:47 Dose: 15 ml Simple Syrup (Simple Syrup) 30 ml FEEDTUBE PRN PRN PRN Reason: Hypoglycemia Sodium Bicarbonate (Sodium Bicarbonate) 325 mg FEEDTUBE PRN PRN PRN Reason: For Clogged Feeding Tube Sodium Hypochlorite (Dakin's Half Strength) 1 applic TP BID [facility] Last Admin: 12/16/16 22:21 Dose: 1 applicatio Exam - Physical Exam Narrative exam: Bilateral lower leg skin necrosis and sloughing. No significant deep wounds. No purulent drainage no bleeding. Bilateral feet are cool with no palpable pedal pulses. Patient able to wiggle toes. - Constitutional Vitals: Temp Pulse Resp BP Pulse Ox 98.5 F 87 18 85/54 100 12/17/16 07:55 12/17/16 07:55 12/17/16 07:55 12/17/16 07:55 12/17/16 07:55 Results - Labs CBC & Chem 7: 12/17/16 10:09 12/17/16 10:09 Labs: Abnormal lab results 12/16/16 12/16/16 12/17/16 Range/Units 19:12 23:30 06:36 RBC (3.65-5.03) M/mm3 Hgb (11.8-15.2) gm/dl Hct (35.5-45.6) % RDW (13.2-15.2) % Plt Count (140-440) K/mm3 BUN (9-20) mg/dL Creatinine (0.8-1.5) mg/dL Glucose (75-100) mg/dL POC Glucose 123 H 140 H 142 H (70-105) Calcium (8.4-10.2) mg/dL 12/17/16 12/17/16 Range/Units 10:09 10:09 RBC 2.44 L (3.65-5.03) M/mm3 Hgb 6.8 L (11.8-15.2) gm/dl Hct 21.3 L (35.5-45.6) % RDW 18.6 H (13.2-15.2) % Plt Count 78 L (140-440) K/mm3 BUN 43 H (9-20) mg/dL Creatinine 3.1 H (0.8-1.5) mg/dL Glucose 185 H (75-100) mg/dL POC Glucose (70-105) Calcium 8.2 L (8.4-10.2) mg/dL Assessment and Plan Bilateral lower extremity skin necrosis and skin sloughing in the very sick terminally ill patient. Patient is not a candidate for any debridement. No debridements are indicated for these wounds. If the wounds become problematic the only procedure that would be of any benefit would be bilateral above-knee amputation. However, given the patient's state of health it is not an option. Plan: Continue conservative wound management per wound care services. Agree with hospice.
--- NOTE | 2016-12-17 11:43 | Progress Note ---
Assessment and Plan Assessment and plan: S/P cardiac arrest - Patient extubated on 12/11 - Patient is alert - On PEG tube feeding Bilateral DM leg ulcer - treated with IV rocephin for 10days - On topical antibacterials DM - Sliding scale insulin Acute on chronic kidney disease - patient is on dialysis MWF - Nephrology following CAD Chronic systolic heart failure a.fib - Low-dose carvedilol - Cardiology following Thrombocytopenia - We will monitor - Hem/Onc consult appreciated GI bleed - Secondary to gastritis/tendinitis - Continue PPI - hemoglobin this morning is 7.4 Severe Malnutrition with cachexia DVT prophylaxis - SCD Disposition - home hospice after PEG placement. History Interval history: Patient was seen and evaluated this morning, patient was alert. I discussed the management plan in detail with his daughter yesterday who is the decision maker. Hospitalist Physical - Physical exam Narrative exam: Patient extubated on 12/11. on PEG tube feeding. The patient appeared well nourished and normally developed. Vital signs as documented. Head exam is unremarkable. No scleral icterus . Neck is without jugular venous distension, thyromegaly, or carotid bruits. Lungs gurgling sound and wheezing on the lower lung zones. Cardiac exam reveals regular rate and Rhythm. First and second heart sounds normal. No murmurs, rubs or gallops. Abdominal exam reveals normal bowel sounds, no masses, no organomegaly and no aortic enlargement. Extremities significant for bilateral leg ulcer around the calf area, clean dressing around it. Edema in the upper extremities. [employer]: Alert. - Constitutional Vitals: Temp Pulse Resp BP Pulse Ox 98.5 F 87 18 85/54 100 12/17/16 07:55 12/17/16 07:55 12/17/16 07:55 12/17/16 07:55 12/17/16 07:55 General appearance: Present: no acute distress, other (Laying bed with Dobhoff in place) Results - Labs CBC & Chem 7: 12/17/16 10:09 12/17/16 10:09 Labs: Laboratory Last Values WBC 10.1 K/mm3 (4.5-11.0) 12/17/16 10:09 RBC 2.44 M/mm3 (3.65-5.03) L 12/17/16 10:09 Hgb 6.8 gm/dl (11.8-15.2) L 12/17/16 10:09 Hct 21.3 % (35.5-45.6) L 12/17/16 10:09 MCV 87 fl (84-94) 12/17/16 10:09 MCH 28 pg (28-32) 12/17/16 10:09 MCHC 32 % (32-34) 12/17/16 10:09 RDW 18.6 % (13.2-15.2) H 12/17/16 10:09 Plt Count 78 K/mm3 (140-440) L 12/17/16 10:09 Lymph % (Auto) 4.3 % (13.4-35.0) L 12/16/16 08:25 Braxton % (Auto) 13.8 % (0.0-7.3) H 12/16/16 08:25 Eos % (Auto) 0.0 % (0.0-4.3) 12/16/16 08:25 Baso % (Auto) 0.1 % (0.0-1.8) 12/16/16 08:25 Lymph # 0.4 K/mm3 (1.2-5.4) L 12/16/16 08:25 Braxton # 1.4 K/mm3 (0.0-0.8) H 12/16/16 08:25 Eos # 0.0 K/mm3 (0.0-0.4) 12/16/16 08:25 Baso # 0.0 K/mm3 (0.0-0.1) 12/16/16 08:25 Add Manual Diff Complete 12/12/16 06:30 Total Counted 100 12/12/16 06:30 Seg Neutrophils % 81.8 % (40.0-70.0) H 12/16/16 08:25 Seg Neuts % (Manual) 99.0 % (40.0-70.0) H 12/12/16 06:30 Band Neutrophils % 0 % 12/12/16 06:30 Lymphocytes % (Manual) 0 % (13.4-35.0) L 12/12/16 06:30 Reactive Lymphs % (Man) 0 % 12/12/16 06:30 Monocytes % (Manual) 1.0 % (0.0-7.3) 12/12/16 06:30 Eosinophils % (Manual) 0 % (0.0-4.3) 12/12/16 06:30 Basophils % (Manual) 0 % (0.0-1.8) 12/12/16 06:30 Metamyelocytes % 0 % 12/12/16 06:30 Myelocytes % 0 % 12/12/16 06:30 Promyelocytes % 0 % 12/12/16 06:30 Blast Cells % 0 % 12/12/16 06:30 Nucleated RBC % 1.0 % (0.0-0.9) H 12/12/16 06:30 Seg Neutrophils # 8.2 K/mm3 (1.8-7.7) H 12/16/16 08:25 Seg Neutrophils # Man 11.2 K/mm3 (1.8-7.7) H 12/12/16 06:30 Band Neutrophils # 0.0 K/mm3 12/12/16 06:30 Lymphocytes # (Manual) 0.0 K/mm3 (1.2-5.4) L 12/12/16 06:30 Abs React Lymphs (Man) 0.0 K/mm3 12/12/16 06:30 Monocytes # (Manual) 0.1 K/mm3 (0.0-0.8) 12/12/16 06:30 Eosinophils # (Manual) 0.0 K/mm3 (0.0-0.4) 12/12/16 06:30 Basophils # (Manual) 0.0 K/mm3 (0.0-0.1) 12/12/16 06:30 Metamyelocytes # 0.0 K/mm3 12/12/16 06:30 Myelocytes # 0.0 K/mm3 12/12/16 06:30 Promyelocytes # 0.0 K/mm3 12/12/16 06:30 Blast Cells # 0.0 K/mm3 12/12/16 06:30 WBC Morphology Not Reportable 12/12/16 06:30 Hypersegmented Neuts Not Reportable 12/12/16 06:30 Hyposegmented Neuts Not Reportable 12/12/16 06:30 Hypogranular Neuts Not Reportable 12/12/16 06:30 Smudge Cells Not Reportable 12/12/16 06:30 Toxic Granulation Not Reportable 12/12/16 06:30 Toxic Vacuolation Not Reportable 12/12/16 06:30 Dohle Bodies Not Reportable 12/12/16 06:30 Pelger-Huet Anomaly Not Reportable 12/12/16 06:30 Demetra Rods Not Reportable 12/12/16 06:30 Platelet Estimate Consistent w auto 12/12/16 06:30 Clumped Platelets Not Reportable 12/12/16 06:30 Plt Clumps, EDTA Not Reportable 12/12/16 06:30 Large Platelets Not Reportable 12/12/16 06:30 Giant Platelets Not Reportable 12/12/16 06:30 Platelet Satelliting Not Reportable 12/12/16 06:30 Plt Morphology Comment Not Reportable 12/12/16 06:30 RBC Morphology Not Reportable 12/12/16 06:30 Dimorphic RBCs Not Reportable 12/12/16 06:30 Polychromasia Not Reportable 12/12/16 06:30 Hypochromasia Few 12/12/16 06:30 Poikilocytosis Not Reportable 12/12/16 06:30 Anisocytosis 1+ 12/12/16 06:30 Microcytosis Not Reportable 12/12/16 06:30 Macrocytosis Not Reportable 12/12/16 06:30 Spherocytes Not Reportable 12/12/16 06:30 Pappenheimer Bodies Not Reportable 12/12/16 06:30 Sickle Cells Not Reportable 12/12/16 06:30 Target Cells Few 12/12/16 06:30 Tear Drop Cells Not Reportable 12/12/16 06:30 Ovalocytes Not Reportable 12/12/16 06:30 Helmet Cells Not Reportable 12/12/16 06:30 Don-Jakin Bodies Not Reportable 12/12/16 06:30 [place] Rings Not Reportable 12/12/16 06:30 Genia Cells Not Reportable 12/12/16 06:30 Bite Cells Not Reportable 12/12/16 06:30 Crenated Cell Not Reportable 12/12/16 06:30 Elliptocytes Not Reportable 12/12/16 06:30 Acanthocytes (Spur) Not Reportable 12/12/16 06:30 Rouleaux Not Reportable 12/12/16 06:30 Hemoglobin C Crystals Not Reportable 12/12/16 06:30 Schistocytes Not Reportable 12/12/16 06:30 Malaria parasites Not Reportable 12/12/16 06:30 Romeo Bodies Not Reportable 12/12/16 06:30 Hem Pathologist Commnt No 12/12/16 06:30 PT 15.5 Sec. (12.2-14.9) H 12/16/16 01:09 INR 1.17 (0.87-1.13) H 12/16/16 01:09 APTT 45.4 Sec. (24.2-36.6) H 12/02/16 19:20 Heparin Anti-Xa Level < 0.10 U.I./ml (0.3-0.7) L 12/03/16 01:15 POC ABG pH 7.517 (7.35-7.45) H 12/11/16 09:05 POC ABG pCO2 32.2 (35-45) L 12/11/16 09:05 POC ABG pO2 97 (80-105) 12/11/16 09:05 POC ABG HCO3 26.1 12/11/16 09:05 POC ABG Total CO2 27 12/11/16 09:05 POC ABG O2 Sat 98 12/11/16 09:05 POC ABG Base Excess 3 12/11/16 09:05 FiO2 30 % 12/11/16 09:05 Sodium 138 mmol/L (137-145) 12/17/16 10:09 Potassium 4.3 mmol/L (3.6-5.0) 12/17/16 10:09 Chloride 98.9 mmol/L (98-107) 12/17/16 10:09 Carbon Dioxide 26 mmol/L (22-30) 12/17/16 10:09 Anion Gap 17 mmol/L 12/17/16 10:09 BUN 43 mg/dL (9-20) H 12/17/16 10:09 Creatinine 3.1 mg/dL (0.8-1.5) H 12/17/16 10:09 Estimated GFR 24 ml/min 12/17/16 10:09 BUN/Creatinine Ratio 13.87 % 12/17/16 10:09 Glucose 185 mg/dL (75-100) H 12/17/16 10:09 POC Glucose 142 (70-105) H 12/17/16 06:36 Hemoglobin A1c 10.6 % (4-6) H 11/28/16 16:02 Lactic Acid 2.60 mmol/L (0.7-2.0) H* 12/04/16 13:22 Calcium 8.2 mg/dL (8.4-10.2) L 12/17/16 10:09 Magnesium 2.10 mg/dL (1.7-2.3) 12/08/16 04:00 Total Bilirubin 1.90 mg/dL (0.1-1.2) H 12/16/16 08:25 AST 23 units/L (5-40) 12/16/16 08:25 ALT 32 units/L (7-56) 12/16/16 08:25 Alkaline Phosphatase 104 units/L (35-129) 12/16/16 08:25 Ammonia 90.0 umol/L (25-60) H 12/08/16 11:50 Total Creatine Kinase 59 units/L (55-170) 12/02/16 19:23 CK-MB (CK-2) 1.9 ng/mL (0.0-4.0) 12/02/16 19:23 CK-MB (CK-2) Rel Index 3.2 (0-4) 12/02/16 19:23 Troponin T 0.098 ng/mL (0.00-0.029) H 12/03/16 08:01 Total Protein 5.5 g/dL (6.3-8.2) L 12/16/16 08:25 Albumin 2.3 g/dL (3.9-5) L 12/16/16 08:25 Albumin/Globulin Ratio 0.7 % 12/16/16 08:25 Triglycerides 72 mg/dL (2-149) 11/30/16 20:37 Cholesterol 132 mg/dL (50-199) 11/30/16 20:37 LDL Cholesterol Direct 82 mg/dL (50-130) 11/30/16 20:37 HDL Cholesterol 36 mg/dL (40-59) L 11/30/16 20:37 Cholesterol/HDL Ratio 3.66 % 11/30/16 20:37 TSH 0.764 mlU/mL (0.270-4.200) 12/08/16 11:50 Urine Color Yellow (Yellow) 11/30/16 10:00 Urine Turbidity Clear (Clear) 11/30/16 10:00 Urine pH 6.0 (5.0-7.0) 11/30/16 10:00 Ur Specific [place] 1.018 (1.003-1.030) 11/30/16 10:00 Urine Protein 30 mg/dl mg/dL (Negative) 11/30/16 10:00 Urine Glucose (UA) Neg mg/dL (Negative) 11/30/16 10:00 Urine Ketones Neg mg/dL (Negative) 11/30/16 10:00 Urine Blood Neg (Negative) 11/30/16 10:00 Urine Nitrite Neg (Negative) 11/30/16 10:00 Urine Bilirubin Neg (Negative) 11/30/16 10:00 Urine Urobilinogen < 2.0 mg/dL (<2.0) 11/30/16 10:00 Ur Leukocyte Esterase Tr (Negative) 11/30/16 10:00 Urine WBC (Auto) 2.0 /HPF (0.0-6.0) 11/30/16 10:00 Urine RBC (Auto) < 1.0 /HPF (0.0-6.0) 11/30/16 10:00 U Epithel Cells (Auto) < 1.0 /HPF (0-13.0) 11/30/16 10:00 Urine Eosinophils None seen (None Seen) 11/30/16 10:00 Urine Creatinine 78.6 mg/dL (0.1-20.0) H 11/30/16 10:00 Urine Sodium 10 mEq/L 11/30/16 10:00 Vancomycin Trough 19.0 ug/mL (5.0-20.0) 12/03/16 06:04 Random Vancomycin 24.7 ug/mL (0-40.0) 12/05/16 05:00 Hepatitis A IgM Ab Non-reactive (NonReactive) 12/08/16 12:20 Hep Bs Antigen Non-reactive (Negative) 12/08/16 12:20 Hep B Core IgM Ab Non-reactive (NonReactive) 12/08/16 12:20 Hepatitis C Antibody Non-reactive (NonReactive) 12/08/16 12:20 Blood Type B POSITIVE 12/07/16 16:09 Antibody Screen TNR 12/07/16 16:09 RHONDA Antibody Screen Negative 12/07/16 16:09 Crossmatch See Detail 12/07/16 16:09
--- NOTE | 2016-12-17 11:49 | Progress Note ---
Assessment and Plan Patient is comfortable today. Patient is more alert and somewhat communicative and denies any significant symptoms. S/P PEG tube placement. He tolerated the procedure well. Acute respiratory failure-->extubated 12/11 management per pulmonary Status post cardiac arrest Acute on chronic systolic heart failure Echo 12/03/16: EF 15-20%, restrictive filling patten, mild-moderate MR dialysis per nephrology continue coreg 6.25mg BID Ccrdiomyopathy s/p AICD Coronary artery disease Peripheral vascular disease with left leg ulcer Hypertension Hyperlipidemia Diabetes End-stage renal disease on hemodialysis Anemia Subjective Date of service: 12/17/16 Principal diagnosis: bilateral leg wounds; TREMAINE Objective Vital Signs Temp Pulse Pulse Pulse Resp Resp BP 12/17/16 07:55 98.5 F 87 18 12/17/16 05:41 98.2 F 84 18 12/17/16 00:48 98.6 F 79 18 12/16/16 23:35 85 16 12/16/16 23:24 12/16/16 23:21 81 17 12/16/16 22:20 83 101/57 12/16/16 20:24 97.6 F 83 20 12/16/16 16:45 97.6 F 88 18 102/44 12/16/16 16:30 82 97/57 12/16/16 16:15 83 97/57 12/16/16 16:00 88 104/53 12/16/16 15:45 79 91/51 12/16/16 15:30 58 L 94/45 12/16/16 15:15 85 98/57 12/16/16 15:00 81 94/53 12/16/16 14:45 79 99/42 12/16/16 14:30 84 94/49 12/16/16 14:15 72 94/65 12/16/16 14:00 84 104/51 12/16/16 13:45 87 101/58 12/16/16 13:30 97.7 F 87 18 97/52 12/16/16 12:35 94 H 16 108/56 12/16/16 12:20 80 18 104/56 12/16/16 12:05 97.9 F 80 20 103/52 BP Pulse Ox 12/17/16 07:55 85/54 100 12/17/16 05:41 100/68 99 12/17/16 00:48 98/54 98 12/16/16 23:35 12/16/16 23:24 100 12/16/16 23:21 12/16/16 22:20 12/16/16 20:24 101/57 100 12/16/16 16:45 12/16/16 16:30 12/16/16 16:15 12/16/16 16:00 12/16/16 15:45 12/16/16 15:30 12/16/16 15:15 12/16/16 15:00 12/16/16 14:45 12/16/16 14:30 12/16/16 14:15 12/16/16 14:00 12/16/16 13:45 12/16/16 13:30 12/16/16 12:35 97 12/16/16 12:20 100 12/16/16 12:05 96 - Physical Examination General: No Apparent Distress (lethargic but arousable) HEENT: Positive: Normocephaly, Mucus Membranes Moist Neck: Positive: neck supple, trachea midline Cardiac: Positive: Reg Rate and Rhythm Lungs: Positive: clear to auscultation Neuro: Positive: Other (lethargic but arousable, no verbal response) Abdomen: Positive: Soft, Active Bowel Sounds Skin: Positive: Clear, Other (Multiple ulcers in the legs - Dressing in situ.). Negative: Rash Musculoskeletal: other (Dressing in situ (multiple ulcers in the legs).) Extremities: Absent: lower extr. pulses, edema (bilateral LE dressings intact) - Labs and Meds CBC 12/17/16 Range/Units 10:09 WBC 10.1 (4.5-11.0) K/mm3 RBC 2.44 L (3.65-5.03) M/mm3 Hgb 6.8 L (11.8-15.2) gm/dl Hct 21.3 L (35.5-45.6) % Plt Count 78 L (140-440) K/mm3 Comprehensive Metabolic Panel 12/17/16 Range/Units 10:09 Sodium 138 (137-145) mmol/L Potassium 4.3 (3.6-5.0) mmol/L Chloride 98.9 (98-107) mmol/L Carbon Dioxide 26 (22-30) mmol/L BUN 43 H (9-20) mg/dL Creatinine 3.1 H (0.8-1.5) mg/dL Glucose 185 H (75-100) mg/dL Calcium 8.2 L (8.4-10.2) mg/dL - Imaging and Cardiology EKG: report reviewed, image reviewed (12/03/2016 severe LV dysfunction by ventricle dysfunction EF 15-20% mild to moderate mitral regurgitation mild to moderate tricuspid regurgitation with pulmonary hypertension) Echo: report reviewed (12/03/16: EF 15-20%, restrictive filling patten, mild- moderate MR), image reviewed
[2016-12-17] MEDS ORDERED: NACL 0.9% 500 ML 500 ML IV ONE (12:00)
[2016-12-17] MEDS ORDERED: SODIUM BICARBONATE FEEDTUBE PRN (12:40)
[2016-12-17] MEDS ORDERED: PANCREAZE DR 10,500 UNIT FEEDTUBE PRN (12:40)
[2016-12-17] MEDS ORDERED: SIMPLE SYRUP FEEDTUBE PRN ×2 (12:40)
--- NOTE | 2016-12-17 14:37 | XRay Report ---
FINAL REPORT PROCEDURE: XR CHEST 1V AP TECHNIQUE: Chest radiograph anteroposterior view. CPT 38749 HISTORY: sob COMPARISON: Chest x-ray dated December 02, 2016 FINDINGS: Cardiac device leads are unchanged in position. Cardiomegaly may be slightly larger than prior study. CHF may be present. Small pleural effusions are suspected. No pneumothorax is seen. IMPRESSION: Cardiomegaly and possible mild CHF are seen.
[2016-12-17] MEDS: XOPENEX IH SCH (16:38)
[2016-12-17] MEDS ORDERED: LASIX IV ONE (17:40)
[2016-12-17 21:00] LABS: Hematocrit 22.7 % (35.5-45.6); Hemoglobin 7.3 gm/dl (11.8-15.2)
[2016-12-17] MEDS: TYLENOL PO PRN (22:41)
[2016-12-17] MEDS ORDERED: NACL 0.9% 250ML 250 ML ONE (23:23)
[2016-12-17] MEDS ORDERED: NACL 0.9% 250ML 250 ML IV ONE (23:30)
[2016-12-18] MEDS: NOVOLOG SUB-Q SCH ×4 (02:29→18:18)
[2016-12-18 09:09] LABS: Hematocrit 27.3 % (35.5-45.6); Hemoglobin 9.1 gm/dl (11.8-15.2); Mean Corpuscular HGB Conc 34 % (32-34); Mean Corpuscular Hemoglobin 30 pg (28-32); Mean Corpuscular Volume 88 fl (84-94); Red Cell Distribution Width 17.1 % (13.2-15.2); White Blood Count 10.6 K/mm3 (4.5-11.0)
[2016-12-18 09:15] LABS: Platelet Count 69 K/mm3 (140-440)
[2016-12-18] MEDS: XOPENEX IH SCH ×4 (09:30→21:13)
--- NOTE | 2016-12-18 10:34 | Progress Note ---
Subjective Principal diagnosis: bilateral leg wounds; TREMAINE Interval history: Patient was seen today for follow-up on multiple renal related issues Events noted, he is doing poorly overall however more alert awake Continues to be dialysis dependent for acute kidney injury No acute distress Vitals labs intake output medications reviewed Social history: Reviewed Family history: Reviewed Physical examination frail-appearing elderly male Vitals: Reviewed HEENT: Oral mucosa moist Neck: Supple no JVD Chest: Clear to auscultation no crackles Heart: Regular rate and rhythm S1 and S2 heard Abdomen: Soft nontender bowel sounds present Extremity: Mild edema dry skin Dermatology; dry skin Psychiatry: No evidence of agitation or aggression Assessment and plan; Acute kidney injury in a patient who is currently oliguric/no significant improvement in renal function continuous renal replacement therapy at least 3 times per week Patient likely has had severe acute tubular necrosis , needs to be monitored for any possible recovery of renal function Has severe cardiomyopathy in the range of 15-20% Status post cardiac arrest currently being followed by cardiology Respiratory failure extubated first week of December was in ICU doing very poorly Still continues to have multi-organ failure Prognosis appears to be guarded to poor continue with supportive care Ultrafiltration as tolerated with hemodialysis keep systolic over 100 We'll continue to follow and make recommendation from renal standpoin Objective - Vital Signs Vital signs: Vital Signs - 12hr 12/17/16 12/17/16 12/18/16 22:41 23:30 00:03 Temperature 98.2 F 98.1 F Pulse Rate 83 86 86 Pulse Rate [ From Monitor] Respiratory 22 22 22 Rate Blood Pressure 128/68 126/62 129/64 Blood Pressure [Left Arm] O2 Sat by Pulse 100 100 Oximetry 12/18/16 12/18/16 12/18/16 00:04 00:34 00:38 Temperature 97.8 F 98.0 F 97.8 F Pulse Rate 81 81 Pulse Rate [ 74 From Monitor] Respiratory 20 22 18 Rate Blood Pressure 100/52 94/52 Blood Pressure 99/72 [Left Arm] O2 Sat by Pulse 94 95 94 Oximetry 12/18/16 12/18/16 12/18/16 01:04 02:42 05:12 Temperature 97.8 F 97.8 F 98.6 F Pulse Rate 83 83 Pulse Rate [ 78 From Monitor] Respiratory 18 18 20 Rate Blood Pressure 108/59 105/61 Blood Pressure 100/68 [Left Arm] O2 Sat by Pulse 94 94 98 Oximetry 12/18/16 08:25 Temperature 97.4 F L Pulse Rate Pulse Rate [ 83 From Monitor] Respiratory 20 Rate Blood Pressure Blood Pressure 92/64 [Left Arm] O2 Sat by Pulse 100 Oximetry - Lab 12/18/16 09:02 12/17/16 10:09 Most recent lab results Calcium 8.2 mg/dL (8.4-10.2) L 12/17/16 10:09 Magnesium 2.10 mg/dL (1.7-2.3) 12/08/16 04:00 Urine Creatinine 78.6 mg/dL (0.1-20.0) H 11/30/16 10:00 Urine Sodium 10 mEq/L 11/30/16 10:00
[2016-12-18 10:37] LABS: Anisocytosis 1+; Blastocytes % (Manual) 0 %; Diff Status Complete; Hypochromasia 1+; Platelet Estimate Cons
[2016-12-18] MEDS: DAKIN'S HALF STRENGTH TP SCH (10:37)
[2016-12-18] MEDS: COREG PO SCH ×2 (10:37→22:27)
[2016-12-18] MEDS: LEVEMIR SUB-Q SCH (10:37)
[2016-12-18] MEDS: PROTONIX FEEDTUBE SCH ×2 (10:38→22:27)
[2016-12-18] MEDS: TRIPLE ANTIBIOTIC TP SCH (10:38)
--- NOTE | 2016-12-18 11:35 | Progress Note ---
Assessment and Plan Assessment and plan: Chronically ill male with extensive chronic medical problems including acute renal failure bilateral cellulitis profound vascular disease with recent cardiorespiratory arrest. Total Time Spent with Patient (Minutes): 28 min - Patient Problems (1) Hx-sudden cardiac arrest Current Visit: Yes Status: Acute Plan to address problem: Patient found to be asystole ejection fraction now 15%. Suboptimal control with beta blockers diarrhetic's secondary to the severity of his disease as well as multiple chronic comorbidities illnesses. This will not allow patient to improve. Patient is appropriate for hospice services. (2) Infected pressure ulcer Current Visit: Yes Status: Acute Qualifiers: Pressure ulcer stage: P Plan to address problem: Patient with infected pressure ulcers. Has had recommendation of bilateral amputation. We'll be very difficult for patient to do well with the bilateral amputation in this patient with severe protein deficiency malnutrition end- stage cardiomyopathy end-stage congestive heart failure renal failure ultimately requiring hemodialysis. Hospice services most likely appropriate we' ll discuss with daughter. (3) Thrombocytopenia due to cold Current Visit: Yes Status: Acute Plan to address problem: Patient H&H appears to be stable at this particular time. Unsure of exact etiology. (4) Bilateral leg ulcer Current Visit: Yes Status: Chronic Qualifiers: Non-pressure ulcer stage: N Plan to address problem: See above (5) Pulmonary hypertension Current Visit: Yes Status: Chronic (6) Acute on chronic renal failure Current Visit: No Status: Acute Qualifiers: Acute renal failure type: A Chronic kidney disease stage: C Plan to address problem: Acute on chronic renal failure avoid nephrotoxic agents. Not a candidate for hemodialysis at this time. Shouldn't total body ascites could be secondary to renal failure versus protein deficiency malnutrition. (7) Acute on chronic systolic heart failure Current Visit: No Status: Acute Plan to address problem: pt with ejection fraction 15% has ascites renal failure suboptimal control as mentioned on beta nohelia diuretics, afterload sign language translator secondary to the severity of patient's disease and multiple comorbid illnesses. Continue medical management at this time. I'll prognosis extremely poor. Patient is allergic to DEISI inhibitors. (8) CAD (coronary artery disease) Current Visit: No Status: Chronic Qualifiers: Coronary Disease-Associated Artery/Lesion type: C [place] vs. transplanted heart: N Associated angina: A Plan to address problem: Status post asystole cardiorespiratory arrest has AICD placed. Risk for sudden is high. Prognosis is extremely poor. Not a candidate for any invasive testing or surgical treatment. (9) Diabetes Current Visit: No Status: Chronic Qualifiers: Diabetes mellitus type: D Diabetes mellitus complication status: D Diabetes mellitus complication detail: D Diabetic retinopathy severity: D Proliferative retinopathy type: P Diabetes mellitus macular edema: D Diabetes mellitus terminal operations supervisor insulin use: D Laterality: L Chronic kidney disease stage: C Plan to address problem: Fair but suboptimal control of diabetes will increase long-acting insulin and titrate with sliding-scale. (10) PAD (peripheral artery disease) Current Visit: No Status: Chronic (11) S/P implantation of automatic cardioverter/defibrillator (AICD) Current Visit: No Status: Chronic History Interval history: Patient today is communicative. Patient able to tell me that he is not in significant pain. Patient does feel weak and exhausted no energy. Clinically patient appears both acutely and chronically ill. Patient very ill appearing very difficult to understand patient secondary to weakness. Hospitalist Physical - Constitutional Vitals: Temp Pulse Resp BP Pulse Ox 97.4 F L 82 18 92/64 97 12/18/16 08:25 12/18/16 11:21 12/18/16 11:21 12/18/16 08:25 12/18/16 11:18 General appearance: Present: no acute distress, mild distress, other (Laying bed with Dobhoff in place) - EENT Eyes: Present: PERRL, EOM intact ENT: hearing intact, clear oral mucosa, dentition normal, poor dentition, other - Neck Neck: Present: supple, normal ROM (edematous ascites) - Respiratory Respiratory: bilateral: diminished, rhonchi - Cardiovascular Rhythm: regularly irregular Heart Sounds: Present: systolic murmur - Extremities Extremities: normal color Extremity abnormal: edema, pulses diminished, other (chronic skin ulcers bilaterally. Poor distal pulses.) Peripheral Pulses: abnormal - Abdominal General gastrointestinal: soft, distended, hypoactive bowel sounds, other (PEG tube ascites and extends to the hips thighs and buttocks.) - Psychiatric Psychiatric: appropriate mood/affect - Neurologic Neurologic: CNII-XII intact Results - Labs CBC & Chem 7: 12/18/16 09:02 12/17/16 10:09 Labs: Laboratory Last Values WBC 10.6 K/mm3 (4.5-11.0) 12/18/16 09:02 RBC 3.10 M/mm3 (3.65-5.03) L 12/18/16 09:02 Hgb 9.1 gm/dl (11.8-15.2) L 12/18/16 09:02 Hct 27.3 % (35.5-45.6) L 12/18/16 09:02 MCV 88 fl (84-94) 12/18/16 09:02 MCH 30 pg (28-32) 12/18/16 09:02 MCHC 34 % (32-34) 12/18/16 09:02 RDW 17.1 % (13.2-15.2) H 12/18/16 09:02 Plt Count 69 K/mm3 (140-440) L 12/18/16 09:02 Lymph % (Auto) 4.3 % (13.4-35.0) L 12/16/16 08:25 [place] % (Auto) 13.8 % (0.0-7.3) H 12/16/16 08:25 Eos % (Auto) 0.0 % (0.0-4.3) 12/16/16 08:25 Baso % (Auto) 0.1 % (0.0-1.8) 12/16/16 08:25 Lymph # 0.4 K/mm3 (1.2-5.4) L 12/16/16 08:25 [place] # 1.4 K/mm3 (0.0-0.8) H 12/16/16 08:25 Eos # 0.0 K/mm3 (0.0-0.4) 12/16/16 08:25 Baso # 0.0 K/mm3 (0.0-0.1) 12/16/16 08:25 Add Manual Diff Complete 12/18/16 09:02 Total Counted 100 12/18/16 09:02 Seg Neutrophils % Heavy Equipment Rental Associate 12/18/16 09:02 Seg Neuts % (Manual) 99.0 % (40.0-70.0) H 12/12/16 06:30 Band Neutrophils % 0 % 12/18/16 09:02 Lymphocytes % (Manual) 2.0 % (13.4-35.0) L 12/18/16 09:02 Reactive Lymphs % (Man) 0 % 12/18/16 09:02 Monocytes % (Manual) 5.0 % (0.0-7.3) 12/18/16 09:02 Eosinophils % (Manual) 0 % (0.0-4.3) 12/12/16 06:30 Basophils % (Manual) 0 % (0.0-1.8) 12/12/16 06:30 Metamyelocytes % 0 % 12/18/16 09:02 Myelocytes % 0 % 12/18/16 09:02 Promyelocytes % 0 % 12/18/16 09:02 Blast Cells % 0 % 12/18/16 09:02 Nucleated RBC % Not Reportable 12/18/16 09:02 Seg Neutrophils # 8.2 K/mm3 (1.8-7.7) H 12/16/16 08:25 Seg Neutrophils # Man 9.9 K/mm3 (1.8-7.7) H 12/18/16 09:02 Band Neutrophils # 0.0 K/mm3 12/18/16 09:02 Lymphocytes # (Manual) 0.2 K/mm3 (1.2-5.4) L 12/18/16 09:02 Abs React Lymphs (Man) 0.0 K/mm3 12/18/16 09:02 Monocytes # (Manual) 0.5 K/mm3 (0.0-0.8) 12/18/16 09:02 Eosinophils # (Manual) 0.0 K/mm3 (0.0-0.4) 12/18/16 09:02 Basophils # (Manual) 0.0 K/mm3 (0.0-0.1) 12/18/16 09:02 Metamyelocytes # 0.0 K/mm3 12/18/16 09:02 Myelocytes # 0.0 K/mm3 12/18/16 09:02 Promyelocytes # 0.0 K/mm3 12/18/16 09:02 Blast Cells # 0.0 K/mm3 12/18/16 09:02 WBC Morphology Not Reportable 12/18/16 09:02 Hypersegmented Neuts Not Reportable 12/18/16 09:02 Hyposegmented Neuts Not Reportable 12/18/16 09:02 Hypogranular Neuts Not Reportable 12/18/16 09:02 Smudge Cells Not Reportable 12/18/16 09:02 Toxic Granulation Not Reportable 12/18/16 09:02 Toxic Vacuolation Not Reportable 12/18/16 09:02 Dohle Bodies Not Reportable 12/18/16 09:02 Pelger-Huet Anomaly Not Reportable 12/18/16 09:02 Demetra Rods Not Reportable 12/18/16 09:02 Platelet Estimate Cons 12/18/16 09:02 Clumped Platelets Not Reportable 12/18/16 09:02 Plt Clumps, EDTA Not Reportable 12/18/16 09:02 Large Platelets Not Reportable 12/18/16 09:02 Giant Platelets Not Reportable 12/18/16 09:02 Platelet Satelliting Not Reportable 12/18/16 09:02 Plt Morphology Comment Not Reportable 12/18/16 09:02 RBC Morphology Not Reportable 12/18/16 09:02 Dimorphic RBCs Not Reportable 12/18/16 09:02 Polychromasia Not Reportable 12/18/16 09:02 Hypochromasia 1+ 12/18/16 09:02 Poikilocytosis Not Reportable 12/18/16 09:02 Anisocytosis 1+ 12/18/16 09:02 Microcytosis Not Reportable 12/18/16 09:02 Macrocytosis Not Reportable 12/18/16 09:02 Spherocytes Not Reportable 12/18/16 09:02 Pappenheimer Bodies Not Reportable 12/18/16 09:02 Sickle Cells Not Reportable 12/18/16 09:02 Target Cells Not Reportable 12/18/16 09:02 Tear Drop Cells Not Reportable 12/18/16 09:02 Ovalocytes Not Reportable 12/18/16 09:02 Helmet Cells Not Reportable 12/18/16 09:02 [place] Bodies Not Reportable 12/18/16 09:02 [place] Rings Not Reportable 12/18/16 09:02 [place] Cells Not Reportable 12/18/16 09:02 Bite Cells Not Reportable 12/18/16 09:02 Crenated Cell Not Reportable 12/18/16 09:02 Elliptocytes Not Reportable 12/18/16 09:02 Acanthocytes (Spur) Not Reportable 12/18/16 09:02 Rouleaux Not Reportable 12/18/16 09:02 Hemoglobin C Crystals Not Reportable 12/18/16 09:02 Schistocytes Not Reportable 12/18/16 09:02 Malaria parasites Not Reportable 12/18/16 09:02 [place] Bodies Not Reportable 12/18/16 09:02 Hem Pathologist Commnt No 12/18/16 09:02 PT 15.5 Sec. (12.2-14.9) H 12/16/16 01:09 INR 1.17 (0.87-1.13) H 12/16/16 01:09 APTT 45.4 Sec. (24.2-36.6) H 12/02/16 19:20 Heparin Anti-Xa Level < 0.10 U.I./ml (0.3-0.7) L 12/03/16 01:15 POC ABG pH 7.517 (7.35-7.45) H 12/11/16 09:05 POC ABG pCO2 32.2 (35-45) L 12/11/16 09:05 POC ABG pO2 97 (80-105) 12/11/16 09:05 POC ABG HCO3 26.1 12/11/16 09:05 POC ABG Total CO2 27 12/11/16 09:05 POC ABG O2 Sat 98 12/11/16 09:05 POC ABG Base Excess 3 12/11/16 09:05 FiO2 30 % 12/11/16 09:05 Sodium 138 mmol/L (137-145) 12/17/16 10:09 Potassium 4.3 mmol/L (3.6-5.0) 12/17/16 10:09 Chloride 98.9 mmol/L (98-107) 12/17/16 10:09 Carbon Dioxide 26 mmol/L (22-30) 12/17/16 10:09 Anion Gap 17 mmol/L 12/17/16 10:09 BUN 43 mg/dL (9-20) H 12/17/16 10:09 Creatinine 3.1 mg/dL (0.8-1.5) H 12/17/16 10:09 Estimated GFR 24 ml/min 12/17/16 10:09 BUN/Creatinine Ratio 13.87 % 12/17/16 10:09 Glucose 185 mg/dL (75-100) H 12/17/16 10:09 POC Glucose 279 (70-105) H 12/18/16 06:19 Hemoglobin A1c 10.6 % (4-6) H 11/28/16 16:02 Lactic Acid 2.60 mmol/L (0.7-2.0) H* 12/04/16 13:22 Calcium 8.2 mg/dL (8.4-10.2) L 12/17/16 10:09 Magnesium 2.10 mg/dL (1.7-2.3) 12/08/16 04:00 Total Bilirubin 1.90 mg/dL (0.1-1.2) H 12/16/16 08:25 AST 23 units/L (5-40) 12/16/16 08:25 ALT 32 units/L (7-56) 12/16/16 08:25 Alkaline Phosphatase 104 units/L (35-129) 12/16/16 08:25 Ammonia 90.0 umol/L (25-60) H 12/08/16 11:50 Total Creatine Kinase 59 units/L (55-170) 12/02/16 19:23 CK-MB (CK-2) 1.9 ng/mL (0.0-4.0) 12/02/16 19:23 CK-MB (CK-2) Rel Index 3.2 (0-4) 12/02/16 19:23 Troponin T 0.098 ng/mL (0.00-0.029) H 12/03/16 08:01 Total Protein 5.5 g/dL (6.3-8.2) L 12/16/16 08:25 Albumin 2.3 g/dL (3.9-5) L 12/16/16 08:25 Albumin/Globulin Ratio 0.7 % 12/16/16 08:25 Triglycerides 72 mg/dL (2-149) 11/30/16 20:37 Cholesterol 132 mg/dL (50-199) 11/30/16 20:37 LDL Cholesterol Direct 82 mg/dL (50-130) 11/30/16 20:37 HDL Cholesterol 36 mg/dL (40-59) L 11/30/16 20:37 Cholesterol/HDL Ratio 3.66 % 11/30/16 20:37 TSH 0.764 mlU/mL (0.270-4.200) 12/08/16 11:50 Urine Color Yellow (Yellow) 11/30/16 10:00 Urine Turbidity Clear (Clear) 11/30/16 10:00 Urine pH 6.0 (5.0-7.0) 11/30/16 10:00 Ur Specific [place] 1.018 (1.003-1.030) 11/30/16 10:00 Urine Protein 30 mg/dl mg/dL (Negative) 11/30/16 10:00 Urine Glucose (UA) Neg mg/dL (Negative) 11/30/16 10:00 Urine Ketones Neg mg/dL (Negative) 11/30/16 10:00 Urine Blood Neg (Negative) 11/30/16 10:00 Urine Nitrite Neg (Negative) 11/30/16 10:00 Urine Bilirubin Neg (Negative) 11/30/16 10:00 Urine Urobilinogen < 2.0 mg/dL (<2.0) 11/30/16 10:00 Ur Leukocyte Esterase Tr (Negative) 11/30/16 10:00 Urine WBC (Auto) 2.0 /HPF (0.0-6.0) 11/30/16 10:00 Urine RBC (Auto) < 1.0 /HPF (0.0-6.0) 11/30/16 10:00 U Epithel Cells (Auto) < 1.0 /HPF (0-13.0) 11/30/16 10:00 Urine Eosinophils None seen (None Seen) 11/30/16 10:00 Urine Creatinine 78.6 mg/dL (0.1-20.0) H 11/30/16 10:00 Urine Sodium 10 mEq/L 11/30/16 10:00 Vancomycin Trough 19.0 ug/mL (5.0-20.0) 12/03/16 06:04 Random Vancomycin 24.7 ug/mL (0-40.0) 12/05/16 05:00 Hepatitis A IgM Ab Non-reactive (NonReactive) 12/08/16 12:20 Hep Bs Antigen Non-reactive (Negative) 12/08/16 12:20 Hep B Core IgM Ab Non-reactive (NonReactive) 12/08/16 12:20 Hepatitis C Antibody Non-reactive (NonReactive) 12/08/16 12:20 Blood Type B POSITIVE 12/17/16 12:25 Antibody Screen TNR 12/17/16 12:25 RHONDA Antibody Screen Negative 12/17/16 12:25 Crossmatch See Detail 12/17/16 12:25 - Imaging and Cardiology Chest x-ray: image reviewed CT scan - abdomen: report reviewed
--- NOTE | 2016-12-18 13:38 | Progress Note ---
Assessment and Plan S/P PEG tube placement. Acute respiratory failure-->extubated 12/11 management per pulmonary Status post cardiac arrest Acute on chronic systolic heart failure Echo 12/03/16: EF 15-20%, restrictive filling patten, mild-moderate MR dialysis per nephrology continue coreg 6.25mg BID Ccrdiomyopathy s/p AICD Coronary artery disease Peripheral vascular disease with left leg ulcer Hypertension Hyperlipidemia Diabetes End-stage renal disease on hemodialysis Anemia Patient is comfortable but chronically ill and denies significant cardiac symptoms. Rhythm strips are reviewed. Pacemaker rhythm with one-to-one conduction. No significant change in the cardiac status. Overall prognosis is guarded Subjective Date of service: 12/18/16 Principal diagnosis: bilateral leg wounds; TREMAINE Interval history: Patient denies any chest pain. Appears to be chronically ill. Complaints of dental weakness. Objective Vital Signs Temp Pulse Pulse Pulse Pulse Resp Resp 12/18/16 12:00 97.4 F L 82 18 12/18/16 11:21 82 82 18 12/18/16 11:18 12/18/16 11:14 74 74 18 12/18/16 08:25 97.4 F L 83 20 12/18/16 05:12 98.6 F 78 20 12/18/16 02:42 97.8 F 83 18 12/18/16 01:04 97.8 F 83 18 12/18/16 00:38 97.8 F 74 18 12/18/16 00:34 98.0 F 81 22 12/18/16 00:04 97.8 F 81 20 12/18/16 00:03 98.1 F 86 22 12/17/16 23:30 98.2 F 86 22 12/17/16 22:41 83 22 12/17/16 20:28 98.2 F 83 18 12/17/16 17:56 98.6 F 85 18 12/17/16 17:27 97.8 F 83 20 12/17/16 16:56 85 12/17/16 16:52 12/17/16 16:40 84 12/17/16 14:44 98.0 F 82 18 Resp BP BP Pulse Ox 12/18/16 12:00 101/64 99 12/18/16 11:21 18 12/18/16 11:18 97 12/18/16 11:14 18 12/18/16 08:25 92/64 100 07/09/17 05:12 100/68 98 12/18/16 02:42 105/61 94 12/18/16 01:04 108/59 94 12/18/16 00:38 99/72 94 12/18/16 00:34 94/52 95 12/18/16 00:04 100/52 94 12/18/16 00:03 129/64 100 12/17/16 23:30 126/62 100 12/17/16 22:41 128/68 12/17/16 20:28 128/68 100 12/17/16 17:56 105/72 98 12/17/16 17:27 91/56 12/17/16 16:56 19 12/17/16 16:52 100 12/17/16 16:40 22 12/17/16 14:44 105/72 100 - Physical Examination General: No Apparent Distress (lethargic but arousable) HEENT: Positive: Normocephaly, Mucus Membranes Moist Neck: Positive: neck supple, trachea midline Cardiac: Positive: Reg Rate and Rhythm, Other ( ) Lungs: Positive: Other (scattered basilar rales present) Neuro: Positive: Other (lethargic but arousable, no verbal response) Abdomen: Positive: Soft, Active Bowel Sounds Skin: Positive: Clear, Other (Multiple ulcers in the legs - Dressing in situ.). Negative: Rash Musculoskeletal: other (Dressing in situ (multiple ulcers in the legs).) Extremities: Absent: lower extr. pulses, edema (bilateral LE dressings intact) - Labs and Meds CBC 12/17/16 12/18/16 Range/Units 20:18 09:02 WBC 10.6 (4.5-11.0) K/mm3 RBC 3.10 L (3.65-5.03) M/mm3 Hgb 7.3 L 9.1 L (11.8-15.2) gm/dl Hct 22.7 L 27.3 L (35.5-45.6) % Plt Count 69 L (140-440) K/mm3 - Imaging and Cardiology EKG: report reviewed, image reviewed (12/03/2016 severe LV dysfunction by ventricle dysfunction EF 15-20% mild to moderate mitral regurgitation mild to moderate tricuspid regurgitation with pulmonary hypertension) Echo: report reviewed (12/03/16: EF 15-20%, restrictive filling patten, mild- moderate MR), image reviewed Pacemaker: normal AV synchronous pac
[2016-12-19] MEDS: NOVOLOG SUB-Q SCH ×5 (00:13→21:13)
[2016-12-19] MEDS: DAKIN'S HALF STRENGTH TP SCH ×3 (00:36→22:08)
[2016-12-19] MEDS ORDERED: NACL 0.9% 1000 ML 1,000 ML ONE (08:49)
--- NOTE | 2016-12-19 09:09 | Progress Note ---
Assessment and Plan - Patient Problems (1) Acute on chronic renal failure Current Visit: No Status: Acute Qualifiers: Acute renal failure type: A Chronic kidney disease stage: C Plan to address problem: pt was seen and examined during HD around 10.15AM today. BP- 98/49,P-76, afebrile. Chart was reviewed. Multiple comorbid conditions-- prognosis poor. Suggest supportive care (2) Acute on chronic systolic heart failure Current Visit: No Status: Acute (3) Thrombocytopenia Current Visit: Yes Status: Acute (4) Anemia in CKD (chronic kidney disease) Current Visit: Yes Status: Acute Qualifiers: Chronic kidney disease stage: C (5) Encephalopathy Current Visit: Yes Status: Acute (6) CAD (coronary artery disease) Current Visit: No Status: Chronic Qualifiers: Coronary Disease-Associated Artery/Lesion type: C [place] vs. transplanted heart: N Associated angina: A (7) COPD (chronic obstructive pulmonary disease) Current Visit: No Status: Chronic Qualifiers: COPD type: C Chronic bronchitis type: C Emphysema type: E (8) Diabetes Current Visit: No Status: Chronic Qualifiers: Diabetes mellitus type: D Diabetes mellitus complication status: D Diabetes mellitus complication detail: D Diabetic retinopathy severity: D Proliferative retinopathy type: P Diabetes mellitus macular edema: D Diabetes mellitus terminal makeup operator insulin use: D Laterality: L Chronic kidney disease stage: C (9) HTN (hypertension) Current Visit: No Status: Chronic Qualifiers: Hypertension type: H (10) Hx of CABG Current Visit: No Status: Chronic (11) Ischemic cardiomyopathy Current Visit: No Status: Chronic (12) PAD (peripheral artery disease) Current Visit: No Status: Chronic (13) S/P implantation of automatic cardioverter/defibrillator (AICD) Current Visit: No Status: Chronic (14) Bilateral leg ulcer Current Visit: Yes Status: Chronic Qualifiers: Non-pressure ulcer stage: N (15) Peripheral edema Current Visit: Yes Status: Acute Subjective Date of service: 12/19/16 Principal diagnosis: bilateral leg wounds; TREMAINE Interval history: lethargic Objective - Vital Signs Vital signs: Vital Signs - 12hr 12/18/16 12/18/16 12/18/16 21:13 21:15 21:22 Temperature Pulse Rate [ From Monitor] Pulse Rate [ Left Brachial] Pulse Rate [ 79 82 Posterior Bilateral Throughout] Pulse Rate [ Right Brachial] Respiratory Rate Respiratory 20 20 Rate [Posterior Bilateral Throughout] Blood Pressure [Left Arm] Blood Pressure [Right Arm] O2 Sat by Pulse 100 Oximetry 12/18/16 12/19/16 12/19/16 22:00 04:00 07:30 Temperature 97.4 F L 97.4 F L Pulse Rate [ 83 From Monitor] Pulse Rate [ 83 83 Left Brachial] Pulse Rate [ Posterior Bilateral Throughout] Pulse Rate [ 83 Right Brachial] Respiratory 20 16 Rate Respiratory Rate [Posterior Bilateral Throughout] Blood Pressure 115/60 123/69 [Left Arm] Blood Pressure 123/69 [Right Arm] O2 Sat by Pulse 97 99 98 Oximetry - General Appearance General appearance: chronically ill EENT: mucous membranes dry Neck: no JVD Respiratory: Present: Decreased Breath Sounds Cardiology: regular, systolic murmur Gastrointestinal: normoactive bowel sounds, other (feeding tube in place) Musculoskeletal: other (dressing over LE, arms swollen, more swelling in right arm) - Lab 12/18/16 09:02 12/17/16 10:09 Most recent lab results Calcium 8.2 mg/dL (8.4-10.2) L 12/17/16 10:09 Magnesium 2.10 mg/dL (1.7-2.3) 12/08/16 04:00 Urine Creatinine 78.6 mg/dL (0.1-20.0) H 11/30/16 10:00 Urine Sodium 10 mEq/L 11/30/16 10:00
[2016-12-19] MEDS: TRIPLE ANTIBIOTIC TP SCH (10:12)
[2016-12-19] MEDS: XOPENEX IH SCH ×2 (10:20→14:30)
[2016-12-19] MEDS ORDERED: NACL 0.9 (PRIMING MACHINE ONLY DIALYSIS) MC ONE (11:05)
[2016-12-19] MEDS: HEPARIN IV PRN (14:40)
--- NOTE | 2016-12-19 14:45 | Progress Note ---
Assessment and Plan Assessment and plan: --Status post sudden cardiac arrest Patient has significant cardiomyopathy with ejection fraction of 15% Status post AICD, continue supportive care, cardiology following --Acute on chronic systolic congestive heart failure Continue current anti-failure medications, cardiology following --Status post AICD; stable --Diabetic foot ulcers/sacral decubitus ulcers Polymicrobial wound infection , patient received 10 days of Rocephin Continue Wound care, --Acute renal failure; hemodialysis per schedule Nephrology following --GI bleeding/acute gastritis CT of 3 units of PRBC transfusion Continue proton pump inhibitors, closely monitor H&H and transfuse as needed --Type 2 diabetes mellitus; moderate control Accu-Chek sliding scale coverage and insulin Continue tube feeding per protocol --Thrombocytopenia Closely monitor, transfuse platelets as needed, no evidence of bleeding --Severe protein calorie malnutrition; Nutrition supplements, supportive care --DVT prophylaxis, no DVT prophylaxis in view of GI bleeding and thrombocytopenia Use SCDs --Full CODE STATUS In view of recent cardiac arrest. Patient is high risk for recurrent cardiac arrest, family aware. Poor prognosis, recommend hospice However family[mother and daughter at the bedside] request transfer to [facility] for further evaluation and management] Case management, charge nurse, floor press operator along with patient's nurse, we discussed patient's condition poor prognosis, no change in clinical status No indication or requirement for higher level of care at this point, and there was no need for transfer out of the patient's family requested I placed a call to [facility] and requested to transfer the patient Mr.Tharpe Carrasco, I gave the details to.transf center personel Ms. Acuna at [phone], and faxed facesheet as requested by them. we will wait for their response. Case management and nurse are informed of the above plans. Total time spent 40 minutes. History Interval history: Patient received hemodialysis today Patient looks chronically ill, cachectic, not in acute distress Minimally communicative Family members at the bedside,requesting transfer to [facility]. vital signs reviewed Hospitalist Physical - Constitutional Vitals: Temp Pulse Resp BP Pulse Ox 97.4 F L 91 H 18 114/48 99 12/19/16 13:00 12/19/16 14:30 12/19/16 14:30 12/19/16 13:00 12/19/16 14:31 General appearance: Present: no acute distress, cachectic, other (ill looking) - EENT Eyes: Present: PERRL, EOM intact - Neck Neck: Present: supple - Respiratory Respiratory effort: normal Respiratory: bilateral: diminished, negative: rales, rhonchi, wheezing - Cardiovascular Rhythm: regular Heart Sounds: Present: S1 & S2 - Extremities Extremities: No edema, abnormal (chronic nonhealing ulcers) Extremity abnormal: pulses diminished, other (chronic ulcers) - Abdominal General gastrointestinal: soft, non-tender, non-distended, normal bowel sounds, other ( PEG tube in place) - Integumentary Integumentary: Present: clear, warm - Psychiatric Psychiatric: depressed, other (confused ,minimally communicative) - Neurologic Neurologic: other (residual weakness) Results - Labs CBC & Chem 7: 12/18/16 09:02 12/17/16 10:09 Labs: Laboratory Last Values WBC 10.6 K/mm3 (4.5-11.0) 12/18/16 09:02 RBC 3.10 M/mm3 (3.65-5.03) L 12/18/16 09:02 Hgb 9.1 gm/dl (11.8-15.2) L 12/18/16 09:02 Hct 27.3 % (35.5-45.6) L 12/18/16 09:02 MCV 88 fl (84-94) 12/18/16 09:02 MCH 30 pg (28-32) 12/18/16 09:02 MCHC 34 % (32-34) 12/18/16 09:02 RDW 17.1 % (13.2-15.2) H 12/18/16 09:02 Plt Count 69 K/mm3 (140-440) L 12/18/16 09:02 Lymph % (Auto) 4.3 % (13.4-35.0) L 12/16/16 08:25 [place] % (Auto) 13.8 % (0.0-7.3) H 12/16/16 08:25 Eos % (Auto) 0.0 % (0.0-4.3) 12/16/16 08:25 Baso % (Auto) 0.1 % (0.0-1.8) 12/16/16 08:25 Lymph # 0.4 K/mm3 (1.2-5.4) L 12/16/16 08:25 [place] # 1.4 K/mm3 (0.0-0.8) H 12/16/16 08:25 Eos # 0.0 K/mm3 (0.0-0.4) 12/16/16 08:25 Baso # 0.0 K/mm3 (0.0-0.1) 12/16/16 08:25 Add Manual Diff Complete 12/18/16 09:02 Total Counted 100 12/18/16 09:02 Seg Neutrophils % Senior Net Software Developer 12/18/16 09:02 Seg Neuts % (Manual) 99.0 % (40.0-70.0) H 12/12/16 06:30 Band Neutrophils % 0 % 12/18/16 09:02 Lymphocytes % (Manual) 2.0 % (13.4-35.0) L 12/18/16 09:02 Reactive Lymphs % (Man) 0 % 12/18/16 09:02 Monocytes % (Manual) 5.0 % (0.0-7.3) 12/18/16 09:02 Eosinophils % (Manual) 0 % (0.0-4.3) 12/12/16 06:30 Basophils % (Manual) 0 % (0.0-1.8) 12/12/16 06:30 Metamyelocytes % 0 % 12/18/16 09:02 Myelocytes % 0 % 12/18/16 09:02 Promyelocytes % 0 % 12/18/16 09:02 Blast Cells % 0 % 12/18/16 09:02 Nucleated RBC % Not Reportable 12/18/16 09:02 Seg Neutrophils # 8.2 K/mm3 (1.8-7.7) H 12/16/16 08:25 Seg Neutrophils # Man 9.9 K/mm3 (1.8-7.7) H 12/18/16 09:02 Band Neutrophils # 0.0 K/mm3 12/18/16 09:02 Lymphocytes # (Manual) 0.2 K/mm3 (1.2-5.4) L 12/18/16 09:02 Abs React Lymphs (Man) 0.0 K/mm3 12/18/16 09:02 Monocytes # (Manual) 0.5 K/mm3 (0.0-0.8) 12/18/16 09:02 Eosinophils # (Manual) 0.0 K/mm3 (0.0-0.4) 12/18/16 09:02 Basophils # (Manual) 0.0 K/mm3 (0.0-0.1) 12/18/16 09:02 Metamyelocytes # 0.0 K/mm3 12/18/16 09:02 Myelocytes # 0.0 K/mm3 12/18/16 09:02 Promyelocytes # 0.0 K/mm3 12/18/16 09:02 Blast Cells # 0.0 K/mm3 12/18/16 09:02 WBC Morphology Not Reportable 12/18/16 09:02 Hypersegmented Neuts Not Reportable 12/18/16 09:02 Hyposegmented Neuts Not Reportable 12/18/16 09:02 Hypogranular Neuts Not Reportable 12/18/16 09:02 Smudge Cells Not Reportable 12/18/16 09:02 Toxic Granulation Not Reportable 12/18/16 09:02 Toxic Vacuolation Not Reportable 12/18/16 09:02 Dohle Bodies Not Reportable 12/18/16 09:02 Pelger-Huet Anomaly Not Reportable 12/18/16 09:02 Demetra Rods Not Reportable 12/18/16 09:02 Platelet Estimate Cons 12/18/16 09:02 Clumped Platelets Not Reportable 12/18/16 09:02 Plt Clumps, EDTA Not Reportable 12/18/16 09:02 Large Platelets Not Reportable 12/18/16 09:02 Giant Platelets Not Reportable 12/18/16 09:02 Platelet Satelliting Not Reportable 12/18/16 09:02 Plt Morphology Comment Not Reportable 12/18/16 09:02 RBC Morphology Not Reportable 12/18/16 09:02 Dimorphic RBCs Not Reportable 12/18/16 09:02 Polychromasia Not Reportable 12/18/16 09:02 Hypochromasia 1+ 12/18/16 09:02 Poikilocytosis Not Reportable 12/18/16 09:02 Anisocytosis 1+ 12/18/16 09:02 Microcytosis Not Reportable 12/18/16 09:02 Macrocytosis Not Reportable 12/18/16 09:02 Spherocytes Not Reportable 12/18/16 09:02 Pappenheimer Bodies Not Reportable 12/18/16 09:02 Sickle Cells Not Reportable 12/18/16 09:02 Target Cells Not Reportable 12/18/16 09:02 Tear Drop Cells Not Reportable 12/18/16 09:02 Ovalocytes Not Reportable 12/18/16 09:02 Helmet Cells Not Reportable 12/18/16 09:02 Don-Walford Bodies Not Reportable 12/18/16 09:02 [place] Rings Not Reportable 12/18/16 09:02 Corona Cells Not Reportable 12/18/16 09:02 Bite Cells Not Reportable 12/18/16 09:02 Crenated Cell Not Reportable 12/18/16 09:02 Elliptocytes Not Reportable 12/18/16 09:02 Acanthocytes (Spur) Not Reportable 12/18/16 09:02 Rouleaux Not Reportable 12/18/16 09:02 Hemoglobin C Crystals Not Reportable 12/18/16 09:02 Schistocytes Not Reportable 12/18/16 09:02 Malaria parasites Not Reportable 12/18/16 09:02 Romeo Bodies Not Reportable 12/18/16 09:02 Hem Pathologist Commnt No 12/18/16 09:02 PT 15.5 Sec. (12.2-14.9) H 12/16/16 01:09 INR 1.17 (0.87-1.13) H 12/16/16 01:09 APTT 45.4 Sec. (24.2-36.6) H 12/02/16 19:20 Heparin Anti-Xa Level < 0.10 U.I./ml (0.3-0.7) L 12/03/16 01:15 POC ABG pH 7.517 (7.35-7.45) H 12/11/16 09:05 POC ABG pCO2 32.2 (35-45) L 12/11/16 09:05 POC ABG pO2 97 (80-105) 12/11/16 09:05 POC ABG HCO3 26.1 12/11/16 09:05 POC ABG Total CO2 27 12/11/16 09:05 POC ABG O2 Sat 98 12/11/16 09:05 POC ABG Base Excess 3 12/11/16 09:05 FiO2 30 % 12/11/16 09:05 Sodium 138 mmol/L (137-145) 12/17/16 10:09 Potassium 4.3 mmol/L (3.6-5.0) 12/17/16 10:09 Chloride 98.9 mmol/L (98-107) 12/17/16 10:09 Carbon Dioxide 26 mmol/L (22-30) 12/17/16 10:09 Anion Gap 17 mmol/L 12/17/16 10:09 BUN 43 mg/dL (9-20) H 12/17/16 10:09 Creatinine 3.1 mg/dL (0.8-1.5) H 12/17/16 10:09 Estimated GFR 24 ml/min 12/17/16 10:09 BUN/Creatinine Ratio 13.87 % 12/17/16 10:09 Glucose 185 mg/dL (75-100) H 12/17/16 10:09 POC Glucose 309 (70-105) H 12/19/16 06:01 Hemoglobin A1c 10.6 % (4-6) H 11/28/16 16:02 Lactic Acid 2.60 mmol/L (0.7-2.0) H* 12/04/16 13:22 Calcium 8.2 mg/dL (8.4-10.2) L 12/17/16 10:09 Magnesium 2.10 mg/dL (1.7-2.3) 12/08/16 04:00 Total Bilirubin 1.90 mg/dL (0.1-1.2) H 12/16/16 08:25 AST 23 units/L (5-40) 12/16/16 08:25 ALT 32 units/L (7-56) 12/16/16 08:25 Alkaline Phosphatase 104 units/L (35-129) 12/16/16 08:25 Ammonia 90.0 umol/L (25-60) H 12/08/16 11:50 Total Creatine Kinase 59 units/L (55-170) 12/02/16 19:23 CK-MB (CK-2) 1.9 ng/mL (0.0-4.0) 12/02/16 19:23 CK-MB (CK-2) Rel Index 3.2 (0-4) 12/02/16 19:23 Troponin T 0.098 ng/mL (0.00-0.029) H 12/03/16 08:01 Total Protein 5.5 g/dL (6.3-8.2) L 12/16/16 08:25 Albumin 2.3 g/dL (3.9-5) L 12/16/16 08:25 Albumin/Globulin Ratio 0.7 % 12/16/16 08:25 Triglycerides 72 mg/dL (2-149) 11/30/16 20:37 Cholesterol 132 mg/dL (50-199) 11/30/16 20:37 LDL Cholesterol Direct 82 mg/dL (50-130) 11/30/16 20:37 HDL Cholesterol 36 mg/dL (40-59) L 11/30/16 20:37 Cholesterol/HDL Ratio 3.66 % 11/30/16 20:37 TSH 0.764 mlU/mL (0.270-4.200) 12/08/16 11:50 Urine Color Yellow (Yellow) 11/30/16 10:00 Urine Turbidity Clear (Clear) 11/30/16 10:00 Urine pH 6.0 (5.0-7.0) 11/30/16 10:00 Ur Specific [place] 1.018 (1.003-1.030) 11/30/16 10:00 Urine Protein 30 mg/dl mg/dL (Negative) 11/30/16 10:00 Urine Glucose (UA) Neg mg/dL (Negative) 11/30/16 10:00 Urine Ketones Neg mg/dL (Negative) 11/30/16 10:00 Urine Blood Neg (Negative) 11/30/16 10:00 Urine Nitrite Neg (Negative) 11/30/16 10:00 Urine Bilirubin Neg (Negative) 11/30/16 10:00 Urine Urobilinogen < 2.0 mg/dL (<2.0) 11/30/16 10:00 Ur Leukocyte Esterase Tr (Negative) 11/30/16 10:00 Urine WBC (Auto) 2.0 /HPF (0.0-6.0) 11/30/16 10:00 Urine RBC (Auto) < 1.0 /HPF (0.0-6.0) 11/30/16 10:00 U Epithel Cells (Auto) < 1.0 /HPF (0-13.0) 11/30/16 10:00 Urine Eosinophils None seen (None Seen) 11/30/16 10:00 Urine Creatinine 78.6 mg/dL (0.1-20.0) H 11/30/16 10:00 Urine Sodium 10 mEq/L 11/30/16 10:00 Vancomycin Trough 19.0 ug/mL (5.0-20.0) 12/03/16 06:04 Random Vancomycin 24.7 ug/mL (0-40.0) 12/05/16 05:00 Hepatitis A IgM Ab Non-reactive (NonReactive) 12/08/16 12:20 Hep Bs Antigen Non-reactive (Negative) 12/08/16 12:20 Hep B Core IgM Ab Non-reactive (NonReactive) 12/08/16 12:20 Hepatitis C Antibody Non-reactive (NonReactive) 12/08/16 12:20 Blood Type B POSITIVE 12/17/16 12:25 Antibody Screen TNR 12/17/16 12:25 RHONDA Antibody Screen Negative 12/17/16 12:25 Crossmatch See Detail 12/17/16 12:25
[2016-12-19] MEDS: COREG PO SCH ×2 (14:56→22:08)
--- NOTE | 2016-12-19 15:27 | Event Note ---
Date: 12/19/16 Patient s/p PEG tube placement. Nurse reports PEG site leaking today. PEG tube pumper off-loaded to prevent skin breakdown. PEG tube intact, pt tolerating feedings well with low residual per nursing. PEG site with small to moderate amount of serosanguineous fluid, but without redness, swelling, odor, or purulent drainage. No s/s of infection at site. Recommended split gauge dressing around PEG site with changes PRN. No further GI recommendations at this time. Please notify if any further PEG tube complications develop.
[2016-12-19] MEDS: LEVEMIR SUB-Q SCH (15:56)
[2016-12-19] MEDS: PROTONIX FEEDTUBE SCH ×2 (16:12→22:06)
[2016-12-20] MEDS: NOVOLOG SUB-Q SCH ×3 (06:36→20:24)
--- NOTE | 2016-12-20 09:26 | Progress Note ---
Assessment and Plan - Patient Problems (1) Acute on chronic renal failure Current Visit: No Status: Acute Qualifiers: Acute renal failure type: A Chronic kidney disease stage: C Plan to address problem: Multiple co morbid conditions, LVEF-10-15%- prognosis poor. Suggest supportive care. Discussed with hospitalist. Poor candidate for chronic dialysis. Discussed with pt's daughter and in detail about pt's clinical condition and prognosis, also discussed about Hospice. No decision made at present. Family requests transfer to [facility] (2) Acute on chronic systolic heart failure Current Visit: No Status: Acute (3) Thrombocytopenia Current Visit: Yes Status: Acute (4) Anemia in CKD (chronic kidney disease) Current Visit: Yes Status: Acute Qualifiers: Chronic kidney disease stage: C (5) Encephalopathy Current Visit: Yes Status: Acute (6) CAD (coronary artery disease) Current Visit: No Status: Chronic Qualifiers: Coronary Disease-Associated Artery/Lesion type: C [place] vs. transplanted heart: N Associated angina: A (7) COPD (chronic obstructive pulmonary disease) Current Visit: No Status: Chronic Qualifiers: COPD type: C Chronic bronchitis type: C Emphysema type: E (8) Diabetes Current Visit: No Status: Chronic Qualifiers: Diabetes mellitus type: type 2 Diabetes mellitus complication status: D Diabetes mellitus complication detail: D Diabetic retinopathy severity: D Proliferative retinopathy type: P Diabetes mellitus macular edema: D Diabetes mellitus extermination supervisor insulin use: D Laterality: L Chronic kidney disease stage: C (9) HTN (hypertension) Current Visit: No Status: Chronic Qualifiers: Hypertension type: H (10) Hx of CABG Current Visit: No Status: Chronic (11) Ischemic cardiomyopathy Current Visit: No Status: Chronic (12) PAD (peripheral artery disease) Current Visit: No Status: Chronic (13) S/P implantation of automatic cardioverter/defibrillator (AICD) Current Visit: No Status: Chronic (14) Bilateral leg ulcer Current Visit: Yes Status: Chronic Qualifiers: Non-pressure ulcer stage: N (15) Peripheral edema Current Visit: Yes Status: Acute (16) Malnutrition Current Visit: Yes Status: Acute (17) Physical deconditioning Current Visit: Yes Status: Acute Subjective Date of service: 12/20/16 Principal diagnosis: bilateral leg wounds; TREMAINE Interval history: lethargic, noted gurgling sounds/ secretions in throat--informed nurse/ respiratory therapist for suctioning Objective - Vital Signs Vital signs: Vital Signs - 12hr 12/19/16 12/19/16 12/20/16 22:00 22:08 00:13 Temperature 98.3 F Pulse Rate 92 H Pulse Rate [ 86 From Monitor] Respiratory 18 Rate Blood Pressure 99/56 [Right Arm] O2 Sat by Pulse 99 97 Oximetry 12/20/16 12/20/16 00:50 04:00 Temperature 98.0 F Pulse Rate Pulse Rate [ 84 From Monitor] Respiratory 18 Rate Blood Pressure 105/62 [Right Arm] O2 Sat by Pulse 96 98 Oximetry - General Appearance General appearance: chronically ill EENT: mucous membranes dry Neck: JVD Respiratory: Present: Decreased Breath Sounds Cardiology: regular, systolic murmur Gastrointestinal: normoactive bowel sounds Musculoskeletal: other (dressing over LE, 1+ edema) - Lab 12/18/16 09:02 12/17/16 10:09 Most recent lab results Calcium 8.2 mg/dL (8.4-10.2) L 12/17/16 10:09 Magnesium 2.10 mg/dL (1.7-2.3) 12/08/16 04:00 Urine Creatinine 78.6 mg/dL (0.1-20.0) H 11/30/16 10:00 Urine Sodium 10 mEq/L 11/30/16 10:00
[2016-12-20] MEDS: XOPENEX IH ONE ×2 (10:33→10:36)
[2016-12-20] MEDS: XOPENEX IH SCH ×4 (10:36→20:52)
[2016-12-20] MEDS: COREG PO SCH ×2 (12:25→22:18)
[2016-12-20] MEDS: PROTONIX FEEDTUBE SCH ×2 (12:26→22:18)
[2016-12-20] MEDS: LEVEMIR SUB-Q SCH (12:34)
--- NOTE | 2016-12-20 15:12 | Progress Note ---
Assessment and Plan S/P PEG tube placement Acute respiratory failure-->extubated 12/11 management per pulmonary Status post cardiac arrest Acute on chronic systolic heart failure Echo 12/03/16: EF 15-20%, restrictive filling patten, mild-moderate MR dialysis per nephrology continue coreg 6.25mg BID Cardiomyopathy s/p AICD Coronary artery disease Peripheral vascular disease with left leg ulcer Hypertension Hyperlipidemia Diabetes End-stage renal disease on hemodialysis Anemia Patient is comfortable but chronically ill and denies significant cardiac symptoms. No significant change in the cardiac status. Overall prognosis is guarded. Will see PRN. The patient has been seen in conjunction with Dr. Ray who agrees with the assessment and plan of care. Subjective Date of service: 12/20/16 Principal diagnosis: bilateral leg wounds; TREMAINE Interval history: Pt resting in bed, not following commands. No family at bedside. Objective Last Vital Signs Temp 97.5 F L 12/20/16 08:40 Pulse 83 12/20/16 08:40 Resp 20 12/20/16 08:40 BP 148/71 12/20/16 08:40 Pulse Ox 100 12/20/16 08:40 - Physical Examination General: No Apparent Distress (lethargic but arousable) HEENT: Positive: Normocephaly, Mucus Membranes Moist Neck: Positive: neck supple, trachea midline Neuro: Positive: Other (lethargic but arousable, no verbal response) Abdomen: Positive: Soft, Active Bowel Sounds Skin: Positive: Clear, Other (Multiple ulcers in the legs - Dressing in situ.). Negative: Rash Musculoskeletal: other (Dressing in situ (multiple ulcers in the legs).) Extremities: Absent: lower extr. pulses, edema (bilateral LE dressings intact) - Imaging and Cardiology EKG: report reviewed, image reviewed (12/03/2016 severe LV dysfunction by ventricle dysfunction EF 15-20% mild to moderate mitral regurgitation mild to moderate tricuspid regurgitation with pulmonary hypertension) Echo: report reviewed (12/03/16: EF 15-20%, restrictive filling patten, mild- moderate MR), image reviewed Pacemaker: normal AV synchronous pac
--- NOTE | 2016-12-20 16:04 | Progress Note ---
Assessment and Plan Assessment and plan: S/P cardiac arrest - Patient extubated on 12/11 - Patient is alert - On PEG tube feeding Bilateral DM leg ulcer - treated with IV rocephin for 10days - On topical antibacterials DM - Sliding scale insulin Acute on chronic kidney disease - patient is on dialysis MWF - Nephrology following and will discuss with the family, if they are ok if we stop it. CAD Chronic systolic heart failure EF is 10-15% a.fib - Low-dose carvedilol - Cardiology following Thrombocytopenia - We will monitor - Hem/Onc consult appreciated GI bleed - Secondary to gastritis/tendinitis - Continue PPI - hemoglobin 9.1 Severe Malnutrition with cachexia DVT prophylaxis - SCD Disposition - The plan was home hospice but the family wants him to be transferred to [place] which is very unlikely [place] to accept the patient. Nothing can be done there that we can't do here. The family members 3 of them called me to talk to them and they were very angry and very disrespectful and they demanded to go to [place] but [place] didn't call back. Prognosis is poor. History Interval history: Patient was seen and evaluated this morning, patient was alert. He was placed and the dressing around the PEG is wet. Hospitalist Physical - Physical exam Narrative exam: Patient extubated on 12/11. on PEG tube feeding. The patient appeared well nourished and normally developed. Vital signs as documented. Head exam is unremarkable. No scleral icterus . Neck is without jugular venous distension, thyromegaly, or carotid bruits. Lungs gurgling sound and wheezing on the lower lung zones. Cardiac exam reveals regular rate and Rhythm. First and second heart sounds normal. No murmurs, rubs or gallops. Abdominal exam reveals normal bowel sounds, no masses, no organomegaly and no aortic enlargement. Extremities significant for bilateral leg ulcer around the calf area, clean dressing around it. Edema in the upper extremities. PLACEMENT DIRECTOR: Alert. - Constitutional Vitals: Temp Pulse Resp BP Pulse Ox 97.5 F L 83 20 148/71 100 12/20/16 08:40 12/20/16 08:40 12/20/16 08:40 12/20/16 08:40 12/20/16 08:40 General appearance: Present: no acute distress, cachectic, other (ill looking) Results - Labs CBC & Chem 7: 12/18/16 09:02 12/17/16 10:09 Labs: Laboratory Last Values WBC 10.6 K/mm3 (4.5-11.0) 12/18/16 09:02 RBC 3.10 M/mm3 (3.65-5.03) L 12/18/16 09:02 Hgb 9.1 gm/dl (11.8-15.2) L 12/18/16 09:02 Hct 27.3 % (35.5-45.6) L 12/18/16 09:02 MCV 88 fl (84-94) 12/18/16 09:02 MCH 30 pg (28-32) 12/18/16 09:02 MCHC 34 % (32-34) 12/18/16 09:02 RDW 17.1 % (13.2-15.2) H 12/18/16 09:02 Plt Count 69 K/mm3 (140-440) L 12/18/16 09:02 Lymph % (Auto) 4.3 % (13.4-35.0) L 12/16/16 08:25 [place] % (Auto) 13.8 % (0.0-7.3) H 12/16/16 08:25 Eos % (Auto) 0.0 % (0.0-4.3) 12/16/16 08:25 Baso % (Auto) 0.1 % (0.0-1.8) 12/16/16 08:25 Lymph # 0.4 K/mm3 (1.2-5.4) L 12/16/16 08:25 [place] # 1.4 K/mm3 (0.0-0.8) H 12/16/16 08:25 Eos # 0.0 K/mm3 (0.0-0.4) 12/16/16 08:25 Baso # 0.0 K/mm3 (0.0-0.1) 12/16/16 08:25 Add Manual Diff Complete 12/18/16 09:02 Total Counted 100 12/18/16 09:02 Seg Neutrophils % [employer] 12/18/16 09:02 Seg Neuts % (Manual) 99.0 % (40.0-70.0) H 12/12/16 06:30 Band Neutrophils % 0 % 12/18/16 09:02 Lymphocytes % (Manual) 2.0 % (13.4-35.0) L 12/18/16 09:02 Reactive Lymphs % (Man) 0 % 12/18/16 09:02 Monocytes % (Manual) 5.0 % (0.0-7.3) 12/18/16 09:02 Eosinophils % (Manual) 0 % (0.0-4.3) 12/12/16 06:30 Basophils % (Manual) 0 % (0.0-1.8) 12/12/16 06:30 Metamyelocytes % 0 % 12/18/16 09:02 Myelocytes % 0 % 12/18/16 09:02 Promyelocytes % 0 % 12/18/16 09:02 Blast Cells % 0 % 12/18/16 09:02 Nucleated RBC % Not Reportable 12/18/16 09:02 Seg Neutrophils # 8.2 K/mm3 (1.8-7.7) H 12/16/16 08:25 Seg Neutrophils # Man 9.9 K/mm3 (1.8-7.7) H 12/18/16 09:02 Band Neutrophils # 0.0 K/mm3 12/18/16 09:02 Lymphocytes # (Manual) 0.2 K/mm3 (1.2-5.4) L 12/18/16 09:02 Abs React Lymphs (Man) 0.0 K/mm3 12/18/16 09:02 Monocytes # (Manual) 0.5 K/mm3 (0.0-0.8) 12/18/16 09:02 Eosinophils # (Manual) 0.0 K/mm3 (0.0-0.4) 12/18/16 09:02 Basophils # (Manual) 0.0 K/mm3 (0.0-0.1) 12/18/16 09:02 Metamyelocytes # 0.0 K/mm3 12/18/16 09:02 Myelocytes # 0.0 K/mm3 12/18/16 09:02 Promyelocytes # 0.0 K/mm3 12/18/16 09:02 Blast Cells # 0.0 K/mm3 12/18/16 09:02 WBC Morphology Not Reportable 12/18/16 09:02 Hypersegmented Neuts Not Reportable 12/18/16 09:02 Hyposegmented Neuts Not Reportable 12/18/16 09:02 Hypogranular Neuts Not Reportable 12/18/16 09:02 Smudge Cells Not Reportable 12/18/16 09:02 Toxic Granulation Not Reportable 12/18/16 09:02 Toxic Vacuolation Not Reportable 12/18/16 09:02 Dohle Bodies Not Reportable 12/18/16 09:02 Pelger-Huet Anomaly Not Reportable 12/18/16 09:02 Demetra Rods Not Reportable 12/18/16 09:02 Platelet Estimate Cons 12/18/16 09:02 Clumped Platelets Not Reportable 12/18/16 09:02 Plt Clumps, EDTA Not Reportable 12/18/16 09:02 Large Platelets Not Reportable 12/18/16 09:02 Giant Platelets Not Reportable 12/18/16 09:02 Platelet Satelliting Not Reportable 12/18/16 09:02 Plt Morphology Comment Not Reportable 12/18/16 09:02 RBC Morphology Not Reportable 12/18/16 09:02 Dimorphic RBCs Not Reportable 12/18/16 09:02 Polychromasia Not Reportable 12/18/16 09:02 Hypochromasia 1+ 12/18/16 09:02 Poikilocytosis Not Reportable 12/18/16 09:02 Anisocytosis 1+ 12/18/16 09:02 Microcytosis Not Reportable 12/18/16 09:02 Macrocytosis Not Reportable 12/18/16 09:02 Spherocytes Not Reportable 12/18/16 09:02 Pappenheimer Bodies Not Reportable 12/18/16 09:02 Sickle Cells Not Reportable 12/18/16 09:02 Target Cells Not Reportable 12/18/16 09:02 Tear Drop Cells Not Reportable 12/18/16 09:02 Ovalocytes Not Reportable 12/18/16 09:02 Helmet Cells Not Reportable 12/18/16 09:02 [place] Bodies Not Reportable 12/18/16 09:02 [place] Rings Not Reportable 12/18/16 09:02 Genia Cells Not Reportable 12/18/16 09:02 Bite Cells Not Reportable 12/18/16 09:02 Crenated Cell Not Reportable 12/18/16 09:02 Elliptocytes Not Reportable 12/18/16 09:02 Acanthocytes (Spur) Not Reportable 12/18/16 09:02 Rouleaux Not Reportable 12/18/16 09:02 Hemoglobin C Crystals Not Reportable 12/18/16 09:02 Schistocytes Not Reportable 12/18/16 09:02 Malaria parasites Not Reportable 12/18/16 09:02 [place] Bodies Not Reportable 12/18/16 09:02 Hem Pathologist Commnt No 12/18/16 09:02 PT 15.5 Sec. (12.2-14.9) H 12/16/16 01:09 INR 1.17 (0.87-1.13) H 12/16/16 01:09 APTT 45.4 Sec. (24.2-36.6) H 12/02/16 19:20 Heparin Anti-Xa Level < 0.10 U.I./ml (0.3-0.7) L 12/03/16 01:15 POC ABG pH 7.517 (7.35-7.45) H 12/11/16 09:05 POC ABG pCO2 32.2 (35-45) L 12/11/16 09:05 POC ABG pO2 97 (80-105) 12/11/16 09:05 POC ABG HCO3 26.1 12/11/16 09:05 POC ABG Total CO2 27 12/11/16 09:05 POC ABG O2 Sat 98 12/11/16 09:05 POC ABG Base Excess 3 12/11/16 09:05 FiO2 30 % 12/11/16 09:05 Sodium 138 mmol/L (137-145) 12/17/16 10:09 Potassium 4.3 mmol/L (3.6-5.0) 12/17/16 10:09 Chloride 98.9 mmol/L (98-107) 12/17/16 10:09 Carbon Dioxide 26 mmol/L (22-30) 12/17/16 10:09 Anion Gap 17 mmol/L 12/17/16 10:09 BUN 43 mg/dL (9-20) H 12/17/16 10:09 Creatinine 3.1 mg/dL (0.8-1.5) H 12/17/16 10:09 Estimated GFR 24 ml/min 12/17/16 10:09 BUN/Creatinine Ratio 13.87 % 12/17/16 10:09 Glucose 185 mg/dL (75-100) H 12/17/16 10:09 POC Glucose 246 (70-105) H 12/20/16 12:27 Hemoglobin A1c 10.6 % (4-6) H 11/28/16 16:02 Lactic Acid 2.60 mmol/L (0.7-2.0) H* 12/04/16 13:22 Calcium 8.2 mg/dL (8.4-10.2) L 12/17/16 10:09 Magnesium 2.10 mg/dL (1.7-2.3) 12/08/16 04:00 Total Bilirubin 1.90 mg/dL (0.1-1.2) H 12/16/16 08:25 AST 23 units/L (5-40) 12/16/16 08:25 ALT 32 units/L (7-56) 12/16/16 08:25 Alkaline Phosphatase 104 units/L (35-129) 12/16/16 08:25 Ammonia 90.0 umol/L (25-60) H 12/08/16 11:50 Total Creatine Kinase 59 units/L (55-170) 12/02/16 19:23 CK-MB (CK-2) 1.9 ng/mL (0.0-4.0) 12/02/16 19:23 CK-MB (CK-2) Rel Index 3.2 (0-4) 12/02/16 19:23 Troponin T 0.098 ng/mL (0.00-0.029) H 12/03/16 08:01 Total Protein 5.5 g/dL (6.3-8.2) L 12/16/16 08:25 Albumin 2.3 g/dL (3.9-5) L 12/16/16 08:25 Albumin/Globulin Ratio 0.7 % 12/16/16 08:25 Triglycerides 72 mg/dL (2-149) 11/30/16 20:37 Cholesterol 132 mg/dL (50-199) 11/30/16 20:37 LDL Cholesterol Direct 82 mg/dL (50-130) 11/30/16 20:37 HDL Cholesterol 36 mg/dL (40-59) L 11/30/16 20:37 Cholesterol/HDL Ratio 3.66 % 11/30/16 20:37 TSH 0.764 mlU/mL (0.270-4.200) 12/08/16 11:50 Urine Color Yellow (Yellow) 11/30/16 10:00 Urine Turbidity Clear (Clear) 11/30/16 10:00 Urine pH 6.0 (5.0-7.0) 11/30/16 10:00 Ur Specific [place] 1.018 (1.003-1.030) 11/30/16 10:00 Urine Protein 30 mg/dl mg/dL (Negative) 11/30/16 10:00 Urine Glucose (UA) Neg mg/dL (Negative) 11/30/16 10:00 Urine Ketones Neg mg/dL (Negative) 11/30/16 10:00 Urine Blood Neg (Negative) 11/30/16 10:00 Urine Nitrite Neg (Negative) 11/30/16 10:00 Urine Bilirubin Neg (Negative) 11/30/16 10:00 Urine Urobilinogen < 2.0 mg/dL (<2.0) 11/30/16 10:00 Ur Leukocyte Esterase Tr (Negative) 11/30/16 10:00 Urine WBC (Auto) 2.0 /HPF (0.0-6.0) 11/30/16 10:00 Urine RBC (Auto) < 1.0 /HPF (0.0-6.0) 11/30/16 10:00 U Epithel Cells (Auto) < 1.0 /HPF (0-13.0) 11/30/16 10:00 Urine Eosinophils None seen (None Seen) 11/30/16 10:00 Urine Creatinine 78.6 mg/dL (0.1-20.0) H 11/30/16 10:00 Urine Sodium 10 mEq/L 11/30/16 10:00 Vancomycin Trough 19.0 ug/mL (5.0-20.0) 12/03/16 06:04 Random Vancomycin 24.7 ug/mL (0-40.0) 12/05/16 05:00 Hepatitis A IgM Ab Non-reactive (NonReactive) 12/08/16 12:20 Hep Bs Antigen Non-reactive (Negative) 12/08/16 12:20 Hep B Core IgM Ab Non-reactive (NonReactive) 12/08/16 12:20 Hepatitis C Antibody Non-reactive (NonReactive) 12/08/16 12:20 Blood Type B POSITIVE 12/17/16 12:25 Antibody Screen TNR 12/17/16 12:25 RHONDA Antibody Screen Negative 12/17/16 12:25 Crossmatch See Detail 12/17/16 12:25
[2016-12-20] MEDS: DAKIN'S HALF STRENGTH TP SCH (22:19)
[2016-12-21] MEDS: NOVOLOG SUB-Q SCH ×2 (00:26→05:49)
[2016-12-21 09:05] LABS: Basophils % (Auto) 0.1 % (0.0-1.8); Eosinophils % (Auto) 0.2 % (0.0-4.3); Hematocrit 28.6 % (35.5-45.6); Hemoglobin 9.2 gm/dl (11.8-15.2); Mean Corpuscular HGB Conc 32 % (32-34); Mean Corpuscular Hemoglobin 29 pg (28-32); Mean Corpuscular Volume 90 fl (84-94); Red Blood Count 3.19 M/mm3 (3.65-5.03); Red Cell Distribution Width 18.1 % (13.2-15.2); White Blood Count 11.5 K/mm3 (4.5-11.0)
--- NOTE | 2016-12-21 09:07 | Progress Note ---
Assessment and Plan Assessment: * Oliguric acute kidney injury secondary to ATN - s/p HD initiation on 12/08 * Acute hypoxic respiratory failure on mechanical ventilation; extubated 12/11 * GI bleed * Anemia secondary to GI bleed * EGD w/o active bleeding * Thrombocytopenia * Type II DM * Diabetic foot ulcer * Cardiomyopathy --TTE: EF 15-20%, restrictive filling patten, mild-moderate MR Plan: * Hemodialysis MWF schedule. UF as tolerated; UOP remains poor * Cardiology recommendations noted * Avoid potential nephrotoxins * Dose medications for renal function * Monitor for evidence of renal recovery * Note family request for transfer to [facility] Date of service: 12/21/16 Principal diagnosis: bilateral leg wounds; TREMAINE Interval history: No acute events overnight. Patient seen on HD - SBP in 80s. Objective - Vital Signs Vital signs: Vital Signs - 12hr 12/21/16 12/21/16 12/21/16 00:00 04:53 05:22 Temperature 98.1 F 98.1 F Pulse Rate 85 Pulse Rate [ 83 82 From Monitor] Respiratory 18 18 Rate Blood Pressure 86/61 93/56 [Right Arm] O2 Sat by Pulse 98 97 Oximetry - General Appearance General appearance: well-developed, chronically ill, frail EENT: ATNC Respiratory: Present: Other (coarse breath sounds) Cardiology: regular, S1S2 Gastrointestinal: normal, no tenderness, no distended Musculoskeletal: other (2+ edema to thighs) Psychiatric: cooperative - Lab 12/21/16 08:36 12/21/16 08:36 Most recent lab results Calcium 8.2 mg/dL (8.4-10.2) L 12/17/16 10:09 Magnesium 2.10 mg/dL (1.7-2.3) 12/08/16 04:00 Urine Creatinine 78.6 mg/dL (0.1-20.0) H 11/30/16 10:00 Urine Sodium 10 mEq/L 11/30/16 10:00
[2016-12-21 09:17] LABS: BUN/Creatinine Ratio 16.19; Calcium 8.2 mg/dL (8.4-10.2); Chloride 97.4 mmol/L (98-107); Potassium 4.8 mmol/L (3.6-5.0)
[2016-12-21 09:20] LABS: Platelet Count 68 K/mm3 (140-440)
[2016-12-21] MEDS: XOPENEX IH SCH ×3 (09:21→22:40)
[2016-12-21] MEDS: ALBURX 25% (ALBUMIN) IV PRN ×3 (11:54→14:02)
[2016-12-21] MEDS ORDERED: NACL 0.9 (PRIMING MACHINE ONLY DIALYSIS) MC ONE (12:24)
--- NOTE | 2016-12-21 17:11 | Progress Note ---
Assessment and Plan Assessment and plan: S/P cardiac arrest - Patient extubated on 12/11 - Patient needs frequent suctioning Bilateral DM leg ulcer - treated with IV rocephin for 10days - On topical antibacterials DM - Sliding scale insulin Acute on chronic kidney disease - patient is on dialysis MWF - Nephrology following CAD Chronic systolic heart failure EF is 10-15% a.fib - Low-dose carvedilol - Cardiology following Thrombocytopenia - We will monitor - Hem/Onc consult appreciated GI bleed - Secondary to gastritis/tendinitis - Continue PPI - hemoglobin 9.1 Severe Malnutrition with cachexia DVT prophylaxis - SCD Disposition - Per family request the plan was to transfer to [place] but it was denied by insurance company. Prognosis is poor. History Interval history: Patient was seen and evaluated this morning, PEG tube was leaking and GI was notified, [place] will not take the patient because the insurance approved and I communicated that with his daughter. Hospitalist Physical - Physical exam Narrative exam: Patient extubated on 12/11. PEG tube is leaking, we held the tube feeding The patient appeared chronically sick looking. Vital signs as documented. Head exam is unremarkable. No scleral icterus . Neck is without jugular venous distension, thyromegaly, or carotid bruits. Lungs gurgling sound and wheezing on the lower lung zones. Cardiac exam reveals regular rate and Rhythm. First and second heart sounds normal. No murmurs, rubs or gallops. Abdominal exam reveals PEG tube is leaking. Extremities significant for bilateral leg ulcer around the calf area, clean dressing around it. Edema in the upper extremities. EMBROIDERY SPECIALIST: Alert. - Constitutional Vitals: Temp Pulse Resp BP Pulse Ox 97.5 F L 56 L 16 88/64 98 12/21/16 14:00 12/21/16 14:00 12/21/16 14:00 12/21/16 14:00 12/21/16 08:00 General appearance: Present: no acute distress, cachectic, other (ill looking) Results - Labs CBC & Chem 7: 12/21/16 08:36 12/21/16 08:36 Labs: Laboratory Last Values WBC 11.5 K/mm3 (4.5-11.0) H 12/21/16 08:36 RBC 3.19 M/mm3 (3.65-5.03) L 12/21/16 08:36 Hgb 9.2 gm/dl (11.8-15.2) L 12/21/16 08:36 Hct 28.6 % (35.5-45.6) L 12/21/16 08:36 MCV 90 fl (84-94) 12/21/16 08:36 MCH 29 pg (28-32) 12/21/16 08:36 MCHC 32 % (32-34) 12/21/16 08:36 RDW 18.1 % (13.2-15.2) H 12/21/16 08:36 Plt Count 68 K/mm3 (140-440) L 12/21/16 08:36 Lymph % (Auto) 1.6 % (13.4-35.0) L 12/21/16 08:36 [place] % (Auto) 9.3 % (0.0-7.3) H 12/21/16 08:36 Eos % (Auto) 0.2 % (0.0-4.3) 12/21/16 08:36 Baso % (Auto) 0.1 % (0.0-1.8) 12/21/16 08:36 Lymph # 0.2 K/mm3 (1.2-5.4) L 12/21/16 08:36 [place] # 1.1 K/mm3 (0.0-0.8) H 12/21/16 08:36 Eos # 0.0 K/mm3 (0.0-0.4) 12/21/16 08:36 Baso # 0.0 K/mm3 (0.0-0.1) 12/21/16 08:36 Add Manual Diff Complete 12/18/16 09:02 Total Counted 100 12/18/16 09:02 Seg Neutrophils % 88.8 % (40.0-70.0) H 12/21/16 08:36 Seg Neuts % (Manual) 99.0 % (40.0-70.0) H 12/12/16 06:30 Band Neutrophils % 0 % 12/18/16 09:02 Lymphocytes % (Manual) 2.0 % (13.4-35.0) L 12/18/16 09:02 Reactive Lymphs % (Man) 0 % 12/18/16 09:02 Monocytes % (Manual) 5.0 % (0.0-7.3) 12/18/16 09:02 Eosinophils % (Manual) 0 % (0.0-4.3) 12/12/16 06:30 Basophils % (Manual) 0 % (0.0-1.8) 12/12/16 06:30 Metamyelocytes % 0 % 12/18/16 09:02 Myelocytes % 0 % 12/18/16 09:02 Promyelocytes % 0 % 12/18/16 09:02 Blast Cells % 0 % 12/18/16 09:02 Nucleated RBC % Not Reportable 12/18/16 09:02 Seg Neutrophils # 10.2 K/mm3 (1.8-7.7) H 12/21/16 08:36 Seg Neutrophils # Man 9.9 K/mm3 (1.8-7.7) H 12/18/16 09:02 Band Neutrophils # 0.0 K/mm3 12/18/16 09:02 Lymphocytes # (Manual) 0.2 K/mm3 (1.2-5.4) L 12/18/16 09:02 Abs React Lymphs (Man) 0.0 K/mm3 12/18/16 09:02 Monocytes # (Manual) 0.5 K/mm3 (0.0-0.8) 12/18/16 09:02 Eosinophils # (Manual) 0.0 K/mm3 (0.0-0.4) 12/18/16 09:02 Basophils # (Manual) 0.0 K/mm3 (0.0-0.1) 12/18/16 09:02 Metamyelocytes # 0.0 K/mm3 12/18/16 09:02 Myelocytes # 0.0 K/mm3 12/18/16 09:02 Promyelocytes # 0.0 K/mm3 12/18/16 09:02 Blast Cells # 0.0 K/mm3 12/18/16 09:02 WBC Morphology Not Reportable 12/18/16 09:02 Hypersegmented Neuts Not Reportable 12/18/16 09:02 Hyposegmented Neuts Not Reportable 12/18/16 09:02 Hypogranular Neuts Not Reportable 12/18/16 09:02 Smudge Cells Not Reportable 12/18/16 09:02 Toxic Granulation Not Reportable 12/18/16 09:02 Toxic Vacuolation Not Reportable 12/18/16 09:02 Dohle Bodies Not Reportable 12/18/16 09:02 Pelger-Huet Anomaly Not Reportable 12/18/16 09:02 Demetra Rods Not Reportable 12/18/16 09:02 Platelet Estimate Cons 12/18/16 09:02 Clumped Platelets Not Reportable 12/18/16 09:02 Plt Clumps, EDTA Not Reportable 12/18/16 09:02 Large Platelets Not Reportable 12/18/16 09:02 Giant Platelets Not Reportable 12/18/16 09:02 Platelet Satelliting Not Reportable 12/18/16 09:02 Plt Morphology Comment Not Reportable 12/18/16 09:02 RBC Morphology Not Reportable 12/18/16 09:02 Dimorphic RBCs Not Reportable 12/18/16 09:02 Polychromasia Not Reportable 12/18/16 09:02 Hypochromasia 1+ 12/18/16 09:02 Poikilocytosis Not Reportable 12/18/16 09:02 Anisocytosis 1+ 12/18/16 09:02 Microcytosis Not Reportable 12/18/16 09:02 Macrocytosis Not Reportable 12/18/16 09:02 Spherocytes Not Reportable 12/18/16 09:02 Pappenheimer Bodies Not Reportable 12/18/16 09:02 Sickle Cells Not Reportable 12/18/16 09:02 Target Cells Not Reportable 12/18/16 09:02 Tear Drop Cells Not Reportable 12/18/16 09:02 Ovalocytes Not Reportable 12/18/16 09:02 Helmet Cells Not Reportable 12/18/16 09:02 Don-[place] Bodies Not Reportable 12/18/16 09:02 [place] Rings Not Reportable 12/18/16 09:02 Genia Cells Not Reportable 12/18/16 09:02 Bite Cells Not Reportable 12/18/16 09:02 Crenated Cell Not Reportable 12/18/16 09:02 Elliptocytes Not Reportable 12/18/16 09:02 Acanthocytes (Spur) Not Reportable 12/18/16 09:02 Rouleaux Not Reportable 12/18/16 09:02 Hemoglobin C Crystals Not Reportable 12/18/16 09:02 Schistocytes Not Reportable 12/18/16 09:02 Malaria parasites Not Reportable 12/18/16 09:02 [place]o Bodies Not Reportable 12/18/16 09:02 Hem Pathologist Commnt No 12/18/16 09:02 PT 15.5 Sec. (12.2-14.9) H 12/16/16 01:09 INR 1.17 (0.87-1.13) H 12/16/16 01:09 APTT 45.4 Sec. (24.2-36.6) H 12/02/16 19:20 Heparin Anti-Xa Level < 0.10 U.I./ml (0.3-0.7) L 12/03/16 01:15 POC ABG pH 7.517 (7.35-7.45) H 12/11/16 09:05 POC ABG pCO2 32.2 (35-45) L 12/11/16 09:05 POC ABG pO2 97 (80-105) 12/11/16 09:05 POC ABG HCO3 26.1 12/11/16 09:05 POC ABG Total CO2 27 12/11/16 09:05 POC ABG O2 Sat 98 12/11/16 09:05 POC ABG Base Excess 3 12/11/16 09:05 FiO2 30 % 12/11/16 09:05 Sodium 137 mmol/L (137-145) 12/21/16 08:36 Potassium 4.8 mmol/L (3.6-5.0) 12/21/16 08:36 Chloride 97.4 mmol/L (98-107) L 12/21/16 08:36 Carbon Dioxide 28 mmol/L (22-30) 12/21/16 08:36 Anion Gap 16 mmol/L 12/21/16 08:36 BUN 68 mg/dL (9-20) H 12/21/16 08:36 Creatinine 4.2 mg/dL (0.8-1.5) H 12/21/16 08:36 Estimated GFR 17 ml/min 12/21/16 08:36 BUN/Creatinine Ratio 16.19 % 12/21/16 08:36 Glucose 124 mg/dL (75-100) H 12/21/16 08:36 POC Glucose 232 (70-105) H 12/21/16 05:17 Hemoglobin A1c 10.6 % (4-6) H 11/28/16 16:02 Lactic Acid 2.60 mmol/L (0.7-2.0) H* 12/04/16 13:22 Calcium 8.2 mg/dL (8.4-10.2) L 12/21/16 08:36 Magnesium 2.10 mg/dL (1.7-2.3) 12/08/16 04:00 Total Bilirubin 1.90 mg/dL (0.1-1.2) H 12/16/16 08:25 AST 23 units/L (5-40) 12/16/16 08:25 ALT 32 units/L (7-56) 12/16/16 08:25 Alkaline Phosphatase 104 units/L (35-129) 12/16/16 08:25 Ammonia 90.0 umol/L (25-60) H 12/08/16 11:50 Total Creatine Kinase 59 units/L (55-170) 12/02/16 19:23 CK-MB (CK-2) 1.9 ng/mL (0.0-4.0) 12/02/16 19:23 CK-MB (CK-2) Rel Index 3.2 (0-4) 12/02/16 19:23 Troponin T 0.098 ng/mL (0.00-0.029) H 12/03/16 08:01 Total Protein 5.5 g/dL (6.3-8.2) L 12/16/16 08:25 Albumin 2.3 g/dL (3.9-5) L 12/16/16 08:25 Albumin/Globulin Ratio 0.7 % 12/16/16 08:25 Triglycerides 72 mg/dL (2-149) 11/30/16 20:37 Cholesterol 132 mg/dL (50-199) 11/30/16 20:37 LDL Cholesterol Direct 82 mg/dL (50-130) 11/30/16 20:37 HDL Cholesterol 36 mg/dL (40-59) L 11/30/16 20:37 Cholesterol/HDL Ratio 3.66 % 11/30/16 20:37 TSH 0.764 mlU/mL (0.270-4.200) 12/08/16 11:50 Urine Color Yellow (Yellow) 11/30/16 10:00 Urine Turbidity Clear (Clear) 11/30/16 10:00 Urine pH 6.0 (5.0-7.0) 11/30/16 10:00 Ur Specific [place] 1.018 (1.003-1.030) 11/30/16 10:00 Urine Protein 30 mg/dl mg/dL (Negative) 11/30/16 10:00 Urine Glucose (UA) Neg mg/dL (Negative) 11/30/16 10:00 Urine Ketones Neg mg/dL (Negative) 11/30/16 10:00 Urine Blood Neg (Negative) 11/30/16 10:00 Urine Nitrite Neg (Negative) 11/30/16 10:00 Urine Bilirubin Neg (Negative) 11/30/16 10:00 Urine Urobilinogen < 2.0 mg/dL (<2.0) 11/30/16 10:00 Ur Leukocyte Esterase Tr (Negative) 11/30/16 10:00 Urine WBC (Auto) 2.0 /HPF (0.0-6.0) 11/30/16 10:00 Urine RBC (Auto) < 1.0 /HPF (0.0-6.0) 11/30/16 10:00 U Epithel Cells (Auto) < 1.0 /HPF (0-13.0) 11/30/16 10:00 Urine Eosinophils None seen (None Seen) 11/30/16 10:00 Urine Creatinine 78.6 mg/dL (0.1-20.0) H 11/30/16 10:00 Urine Sodium 10 mEq/L 11/30/16 10:00 Vancomycin Trough 19.0 ug/mL (5.0-20.0) 12/03/16 06:04 Random Vancomycin 24.7 ug/mL (0-40.0) 12/05/16 05:00 Hepatitis A IgM Ab Non-reactive (NonReactive) 12/08/16 12:20 Hep Bs Antigen Non-reactive (Negative) 12/08/16 12:20 Hep B Core IgM Ab Non-reactive (NonReactive) 12/08/16 12:20 Hepatitis C Antibody Non-reactive (NonReactive) 12/08/16 12:20 Blood Type B POSITIVE 12/17/16 12:25 Antibody Screen TNR 12/17/16 12:25 RHONDA Antibody Screen Negative 12/17/16 12:25 Crossmatch See Detail 12/17/16 12:25
--- NOTE | 2016-12-21 18:17 | Gastroenterology Progress Note ---
Assessment and Plan - Patient Problems (1) Malfunction of gastrostomy tube Current Visit: Yes Status: Acute Plan to address problem: There is significant leakage around the G tube which has been tube feeds by nurse history but actually looks bilious and clear. Not certain if he has good support tissue around the tube to to location and intrinsic muscle mass. Tube feedings were stopped. The nurse was given instructions to dress the tube and slide the clamp down to the bumper to keep it tight. G tube study will be done tomorrow. IVF will be needed until G tube bumper position reassessed and leakage resolved. Care plan discussed with Dr. Lee and with family at bedside. Subjective Date of service: 12/21/16 Principal diagnosis: leaking around G tube Interval history: I was requested to see patient in follow up for leaking around the G tube. PEG was performed by Dr. Durbin on 12/16 uneventfully by his notes. The family states there has been leakage of tube feeds around the tube since placed. TFs were stopped today as the dressings were soaked. The patient is non verbal. Objective - Constitutional Vitals: Temp Pulse Resp BP Pulse Ox 97.5 F L 56 L 16 88/64 98 12/21/16 14:00 12/21/16 14:00 12/21/16 14:00 12/21/16 14:00 12/21/16 08:00 General appearance: no acute distress, other (Non verbal) - EENT Eyes: PERRL, EOM intact - Neck Neck: supple, normal ROM - Respiratory Respiratory effort: normal Respiratory: bilateral: CTA - Cardiovascular Rhythm: regular - Gastrointestinal General gastrointestinal: Present: soft, non-tender, non-distended, normal bowel sounds, other (G tube in RUQ, approximately 2 cm to the right of the midline. The dressings are soaked with clear bilious fluid,?tube feeds. No erythema, fluctuance. The tube is mobile.). Absent: hepatomegaly, splenomegaly - Neurologic Neurological: disoriented - Labs CBC & Chem 7: 12/21/16 08:36 12/21/16 08:36 Labs: Laboratory Results - last 24 hr 12/20/16 12/20/16 12/21/16 18:45 23:39 05:17 WBC RBC Hgb Hct MCV MCH MCHC RDW Plt Count Lymph % (Auto) [place] % (Auto) Eos % (Auto) Baso % (Auto) Lymph # [place] # Eos # Baso # Seg Neutrophils % Seg Neutrophils # Sodium Potassium Chloride Carbon Dioxide Anion Gap BUN Creatinine Estimated GFR BUN/Creatinine Ratio Glucose POC Glucose 264 H 244 H 232 H Calcium 12/21/16 12/21/16 08:36 08:36 WBC 11.5 H RBC 3.19 L Hgb 9.2 L Hct 28.6 L MCV 90 MCH 29 MCHC 32 RDW 18.1 H Plt Count 68 L Lymph % (Auto) 1.6 L [place] % (Auto) 9.3 H Eos % (Auto) 0.2 Baso % (Auto) 0.1 Lymph # 0.2 L [place] # 1.1 H Eos # 0.0 Baso # 0.0 Seg Neutrophils % 88.8 H Seg Neutrophils # 10.2 H Sodium 137 Potassium 4.8 Chloride 97.4 L Carbon Dioxide 28 Anion Gap 16 BUN 68 H Creatinine 4.2 H Estimated GFR 17 BUN/Creatinine Ratio 16.19 Glucose 124 H POC Glucose Calcium 8.2 L
[2016-12-21] MEDS: COREG PO SCH (21:57)
[2016-12-21] MEDS: PROTONIX FEEDTUBE SCH (21:57)
[2016-12-21] MEDS: DAKIN'S FULL STRENGTH TP SCH (22:30)
[2016-12-22] MEDS: NOVOLOG SUB-Q SCH ×5 (06:25→22:34)
[2016-12-22] MEDS: XOPENEX IH SCH (08:00)
[2016-12-22] MEDS: PROTONIX FEEDTUBE SCH (10:26)
[2016-12-22] MEDS: LEVEMIR SUB-Q SCH (10:26)
[2016-12-22] MEDS: COREG PO SCH ×2 (10:26→22:33)
[2016-12-22 10:32] LABS: Basophils % (Auto) 0.1 % (0.0-1.8); Eosinophils % (Auto) 0.1 % (0.0-4.3); Hematocrit 27.5 % (35.5-45.6); Hemoglobin 8.9 gm/dl (11.8-15.2); Mean Corpuscular HGB Conc 32 % (32-34); Mean Corpuscular Hemoglobin 29 pg (28-32); Mean Corpuscular Volume 90 fl (84-94); Red Blood Count 3.06 M/mm3 (3.65-5.03); Red Cell Distribution Width 18.4 % (13.2-15.2); White Blood Count 11.1 K/mm3 (4.5-11.0)
[2016-12-22 10:37] LABS: Platelet Count 61 K/mm3 (140-440)
[2016-12-22 10:41] LABS: BUN/Creatinine Ratio 14.37; Calcium 8.6 mg/dL (8.4-10.2); Chloride 96.5 mmol/L (98-107)
--- NOTE | 2016-12-22 13:42 | Progress Note ---
Assessment and Plan Assessment: * Oliguric acute kidney injury secondary to ATN - s/p HD initiation on 12/08 * Acute hypoxic respiratory failure on mechanical ventilation; extubated 12/11 * GI bleed * Anemia secondary to GI bleed * EGD w/o active bleeding * Thrombocytopenia * Type II DM * Diabetic foot ulcer * Cardiomyopathy --TTE: EF 15-20%, restrictive filling patten, mild-moderate MR Plan: * Hemodialysis MWF schedule. UF as tolerated; UOP remains poor * Cardiology recommendations noted * Avoid potential nephrotoxins * Dose medications for renal function * Monitor for evidence of renal recovery * Note family request for transfer to [facility] Date of service: 12/22/16 Principal diagnosis: leaking around G tube Interval history: resting in bed, non responsive, events noted Objective - Exam Narrative Exam: Neck: supple Ascultation: Bilateral: rales (anteriorly) Percussion: Bilateral: not dull Cardiovascular: other (Appears to be a paced rhythm with frequent PVC's. Some axis deviation as well) Gastrointestinal: normoactive bowel sounds, soft Extremities: no edema, cool Gait: other (unable to assess) - Vital Signs Vital signs: Vital Signs - 12hr 12/22/16 12/22/16 12/22/16 03:00 06:02 08:00 Temperature 97.5 F L Pulse Rate 85 Pulse Rate [ 83 Anterior Bilateral Throughout] Pulse Rate [ 85 From Monitor] Respiratory 20 Rate Respiratory 18 Rate [Anterior Bilateral Throughout] Blood Pressure 93/65 [Right Arm] O2 Sat by Pulse 100 Oximetry 12/22/16 12/22/16 08:10 09:43 Temperature 97.4 F L Pulse Rate Pulse Rate [ 87 Anterior Bilateral Throughout] Pulse Rate [ 86 From Monitor] Respiratory 22 Rate Respiratory Rate [Anterior Bilateral Throughout] Blood Pressure 88/57 [Right Arm] O2 Sat by Pulse 99 Oximetry - Lab 12/22/16 09:50 12/22/16 09:50 Most recent lab results Calcium 8.6 mg/dL (8.4-10.2) 12/22/16 09:50 Magnesium 2.10 mg/dL (1.7-2.3) 12/08/16 04:00 Urine Creatinine 78.6 mg/dL (0.1-20.0) H 11/30/16 10:00 Urine Sodium 10 mEq/L 11/30/16 10:00
[2016-12-22] MEDS ORDERED: KIONEX PO ONE (14:00)
[2016-12-22] MEDS ORDERED: NACL 0.9% 100 ML IV PRN (14:44)
--- NOTE | 2016-12-22 15:26 | Progress Note ---
Assessment and Plan Assessment and plan: S/P cardiac arrest - Patient extubated on 12/11 - Patient needs frequent suctioning - patient has gurgling sounds - we stopped tube feeding and we couldn't give him IV fluids because of his hypervolemia - GI consulted for fixing or adjusting the PEG tube Bilateral DM leg ulcer - treated with IV rocephin for 10days - On topical antibacterials DM - Sliding scale insulin Acute on chronic kidney disease - patient is on dialysis MWF - Nephrology following, will discuss with the family D/C the hemodialysis and transfer to Hospice. CAD Chronic systolic heart failure EF is 10-15% a.fib - Low-dose carvedilol - Cardiology following Thrombocytopenia - platelet is trending down to 61 this morning - Hem/Onc consult appreciated GI bleed - Secondary to gastritis/tendinitis - Continue PPI - hemoglobin 8.9 this morning Severe Malnutrition with cachexia - will resume PEG feeding once fixed DVT prophylaxis - SCD Disposition - Consider Hospice if the family agree with the plan. History Interval history: Patient was seen and evaluated this morning, PEG tube was leaking and GI was notified, [place] will not take the patient because the insurance didn't approved and I communicated that with his daughter. Hospitalist Physical - Physical exam Narrative exam: Patient extubated on 12/11. PEG tube is leaking, we held the tube feeding The patient appeared chronically sick looking. Vital signs as documented. Head exam is unremarkable. No scleral icterus . Neck is without jugular venous distension, thyromegaly, or carotid bruits. Lungs gurgling sound and wheezing on the lower lung zones. Cardiac exam reveals regular rate and Rhythm. First and second heart sounds normal. No murmurs, rubs or gallops. Abdominal exam reveals PEG tube is leaking. Extremities significant for bilateral leg ulcer around the calf area, clean dressing around it. Edema in the upper extremities. 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 - Constitutional Vitals: Temp Pulse Resp BP Pulse Ox 97.4 F L 86 22 88/57 99 12/22/16 09:43 12/22/16 09:43 12/22/16 09:43 12/22/16 09:43 12/22/16 09:43 General appearance: Present: no acute distress, cachectic, other (ill looking) Results - Labs CBC & Chem 7: 12/22/16 09:50 12/22/16 09:50 Labs: Laboratory Last Values WBC 11.1 K/mm3 (4.5-11.0) H 12/22/16 09:50 RBC 3.06 M/mm3 (3.65-5.03) L 12/22/16 09:50 Hgb 8.9 gm/dl (11.8-15.2) L 12/22/16 09:50 Hct 27.5 % (35.5-45.6) L 12/22/16 09:50 MCV 90 fl (84-94) 12/22/16 09:50 MCH 29 pg (28-32) 12/22/16 09:50 MCHC 32 % (32-34) 12/22/16 09:50 RDW 18.4 % (13.2-15.2) H 12/22/16 09:50 Plt Count 61 K/mm3 (140-440) L 12/22/16 09:50 Lymph % (Auto) 1.9 % (13.4-35.0) L 12/22/16 09:50 [place] % (Auto) 8.3 % (0.0-7.3) H 12/22/16 09:50 Eos % (Auto) 0.1 % (0.0-4.3) 12/22/16 09:50 Baso % (Auto) 0.1 % (0.0-1.8) 12/22/16 09:50 Lymph # 0.2 K/mm3 (1.2-5.4) L 12/22/16 09:50 [place] # 0.9 K/mm3 (0.0-0.8) H 12/22/16 09:50 Eos # 0.0 K/mm3 (0.0-0.4) 12/22/16 09:50 Baso # 0.0 K/mm3 (0.0-0.1) 12/22/16 09:50 Add Manual Diff Complete 12/18/16 09:02 Total Counted 100 12/18/16 09:02 Seg Neutrophils % 89.6 % (40.0-70.0) H 12/22/16 09:50 Seg Neuts % (Manual) 99.0 % (40.0-70.0) H 12/12/16 06:30 Band Neutrophils % 0 % 12/18/16 09:02 Lymphocytes % (Manual) 2.0 % (13.4-35.0) L 12/18/16 09:02 Reactive Lymphs % (Man) 0 % 12/18/16 09:02 Monocytes % (Manual) 5.0 % (0.0-7.3) 12/18/16 09:02 Eosinophils % (Manual) 0 % (0.0-4.3) 12/12/16 06:30 Basophils % (Manual) 0 % (0.0-1.8) 12/12/16 06:30 Metamyelocytes % 0 % 12/18/16 09:02 Myelocytes % 0 % 12/18/16 09:02 Promyelocytes % 0 % 12/18/16 09:02 Blast Cells % 0 % 12/18/16 09:02 Nucleated RBC % Not Reportable 12/18/16 09:02 Seg Neutrophils # 9.9 K/mm3 (1.8-7.7) H 12/22/16 09:50 Seg Neutrophils # Man 9.9 K/mm3 (1.8-7.7) H 12/18/16 09:02 Band Neutrophils # 0.0 K/mm3 12/18/16 09:02 Lymphocytes # (Manual) 0.2 K/mm3 (1.2-5.4) L 12/18/16 09:02 Abs React Lymphs (Man) 0.0 K/mm3 12/18/16 09:02 Monocytes # (Manual) 0.5 K/mm3 (0.0-0.8) 12/18/16 09:02 Eosinophils # (Manual) 0.0 K/mm3 (0.0-0.4) 12/18/16 09:02 Basophils # (Manual) 0.0 K/mm3 (0.0-0.1) 12/18/16 09:02 Metamyelocytes # 0.0 K/mm3 12/18/16 09:02 Myelocytes # 0.0 K/mm3 12/18/16 09:02 Promyelocytes # 0.0 K/mm3 12/18/16 09:02 Blast Cells # 0.0 K/mm3 12/18/16 09:02 WBC Morphology Not Reportable 12/18/16 09:02 Hypersegmented Neuts Not Reportable 12/18/16 09:02 Hyposegmented Neuts Not Reportable 12/18/16 09:02 Hypogranular Neuts Not Reportable 12/18/16 09:02 Smudge Cells Not Reportable 12/18/16 09:02 Toxic Granulation Not Reportable 12/18/16 09:02 Toxic Vacuolation Not Reportable 12/18/16 09:02 Dohle Bodies Not Reportable 12/18/16 09:02 Pelger-Huet Anomaly Not Reportable 12/18/16 09:02 Demetra Rods Not Reportable 12/18/16 09:02 Platelet Estimate Cons 12/18/16 09:02 Clumped Platelets Not Reportable 12/18/16 09:02 Plt Clumps, EDTA Not Reportable 12/18/16 09:02 Large Platelets Not Reportable 12/18/16 09:02 Giant Platelets Not Reportable 12/18/16 09:02 Platelet Satelliting Not Reportable 12/18/16 09:02 Plt Morphology Comment Not Reportable 12/18/16 09:02 RBC Morphology Not Reportable 12/18/16 09:02 Dimorphic RBCs Not Reportable 12/18/16 09:02 Polychromasia Not Reportable 12/18/16 09:02 Hypochromasia 1+ 12/18/16 09:02 Poikilocytosis Not Reportable 12/18/16 09:02 Anisocytosis 1+ 12/18/16 09:02 Microcytosis Not Reportable 12/18/16 09:02 Macrocytosis Not Reportable 12/18/16 09:02 Spherocytes Not Reportable 12/18/16 09:02 Pappenheimer Bodies Not Reportable 12/18/16 09:02 Sickle Cells Not Reportable 12/18/16 09:02 Target Cells Not Reportable 12/18/16 09:02 Tear Drop Cells Not Reportable 12/18/16 09:02 Ovalocytes Not Reportable 12/18/16 09:02 Helmet Cells Not Reportable 12/18/16 09:02 Don-[place] Bodies Not Reportable 12/18/16 09:02 [place] Rings Not Reportable 12/18/16 09:02 [place] Cells Not Reportable 12/18/16 09:02 Bite Cells Not Reportable 12/18/16 09:02 Crenated Cell Not Reportable 12/18/16 09:02 Elliptocytes Not Reportable 12/18/16 09:02 Acanthocytes (Spur) Not Reportable 12/18/16 09:02 Rouleaux Not Reportable 12/18/16 09:02 Hemoglobin C Crystals Not Reportable 12/18/16 09:02 Schistocytes Not Reportable 12/18/16 09:02 Malaria parasites Not Reportable 12/18/16 09:02 Romeo Bodies Not Reportable 12/18/16 09:02 Hem Pathologist Commnt No 12/18/16 09:02 PT 15.5 Sec. (12.2-14.9) H 12/16/16 01:09 INR 1.17 (0.87-1.13) H 12/16/16 01:09 APTT 45.4 Sec. (24.2-36.6) H 12/02/16 19:20 Heparin Anti-Xa Level < 0.10 U.I./ml (0.3-0.7) L 12/03/16 01:15 POC ABG pH 7.517 (7.35-7.45) H 12/11/16 09:05 POC ABG pCO2 32.2 (35-45) L 12/11/16 09:05 POC ABG pO2 97 (80-105) 12/11/16 09:05 POC ABG HCO3 26.1 12/11/16 09:05 POC ABG Total CO2 27 12/11/16 09:05 POC ABG O2 Sat 98 12/11/16 09:05 POC ABG Base Excess 3 12/11/16 09:05 FiO2 30 % 12/11/16 09:05 Sodium 136 mmol/L (137-145) L 12/22/16 09:50 Potassium 5.0 mmol/L (3.6-5.0) 12/22/16 09:50 Chloride 96.5 mmol/L (98-107) L 12/22/16 09:50 Carbon Dioxide 26 mmol/L (22-30) 12/22/16 09:50 Anion Gap 19 mmol/L 12/22/16 09:50 BUN 46 mg/dL (9-20) H 12/22/16 09:50 Creatinine 3.2 mg/dL (0.8-1.5) H 12/22/16 09:50 Estimated GFR 23 ml/min 12/22/16 09:50 BUN/Creatinine Ratio 14.37 % 12/22/16 09:50 Glucose 154 mg/dL (75-100) H 12/22/16 09:50 POC Glucose 172 (70-105) H 12/22/16 12:10 Hemoglobin A1c 10.6 % (4-6) H 11/28/16 16:02 Lactic Acid 2.60 mmol/L (0.7-2.0) H* 12/04/16 13:22 Calcium 8.6 mg/dL (8.4-10.2) 12/22/16 09:50 Magnesium 2.10 mg/dL (1.7-2.3) 12/08/16 04:00 Total Bilirubin 1.90 mg/dL (0.1-1.2) H 12/16/16 08:25 AST 23 units/L (5-40) 12/16/16 08:25 ALT 32 units/L (7-56) 12/16/16 08:25 Alkaline Phosphatase 104 units/L (35-129) 12/16/16 08:25 Ammonia 90.0 umol/L (25-60) H 12/08/16 11:50 Total Creatine Kinase 59 units/L (55-170) 12/02/16 19:23 CK-MB (CK-2) 1.9 ng/mL (0.0-4.0) 12/02/16 19:23 CK-MB (CK-2) Rel Index 3.2 (0-4) 12/02/16 19:23 Troponin T 0.098 ng/mL (0.00-0.029) H 12/03/16 08:01 Total Protein 5.5 g/dL (6.3-8.2) L 12/16/16 08:25 Albumin 2.3 g/dL (3.9-5) L 12/16/16 08:25 Albumin/Globulin Ratio 0.7 % 12/16/16 08:25 Triglycerides 72 mg/dL (2-149) 11/30/16 20:37 Cholesterol 132 mg/dL (50-199) 11/30/16 20:37 LDL Cholesterol Direct 82 mg/dL (50-130) 11/30/16 20:37 HDL Cholesterol 36 mg/dL (40-59) L 11/30/16 20:37 Cholesterol/HDL Ratio 3.66 % 11/30/16 20:37 TSH 0.764 mlU/mL (0.270-4.200) 12/08/16 11:50 Urine Color Yellow (Yellow) 11/30/16 10:00 Urine Turbidity Clear (Clear) 11/30/16 10:00 Urine pH 6.0 (5.0-7.0) 11/30/16 10:00 Ur Specific [place] 1.018 (1.003-1.030) 11/30/16 10:00 Urine Protein 30 mg/dl mg/dL (Negative) 11/30/16 10:00 Urine Glucose (UA) Neg mg/dL (Negative) 11/30/16 10:00 Urine Ketones Neg mg/dL (Negative) 11/30/16 10:00 Urine Blood Neg (Negative) 11/30/16 10:00 Urine Nitrite Neg (Negative) 11/30/16 10:00 Urine Bilirubin Neg (Negative) 11/30/16 10:00 Urine Urobilinogen < 2.0 mg/dL (<2.0) 11/30/16 10:00 Ur Leukocyte Esterase Tr (Negative) 11/30/16 10:00 Urine WBC (Auto) 2.0 /HPF (0.0-6.0) 11/30/16 10:00 Urine RBC (Auto) < 1.0 /HPF (0.0-6.0) 11/30/16 10:00 U Epithel Cells (Auto) < 1.0 /HPF (0-13.0) 11/30/16 10:00 Urine Eosinophils None seen (None Seen) 11/30/16 10:00 Urine Creatinine 78.6 mg/dL (0.1-20.0) H 11/30/16 10:00 Urine Sodium 10 mEq/L 11/30/16 10:00 Vancomycin Trough 19.0 ug/mL (5.0-20.0) 12/03/16 06:04 Random Vancomycin 24.7 ug/mL (0-40.0) 12/05/16 05:00 Hepatitis A IgM Ab Non-reactive (NonReactive) 12/08/16 12:20 Hep Bs Antigen Non-reactive (Negative) 12/08/16 12:20 Hep B Core IgM Ab Non-reactive (NonReactive) 12/08/16 12:20 Hepatitis C Antibody Non-reactive (NonReactive) 12/08/16 12:20 Blood Type B POSITIVE 12/17/16 12:25 Antibody Screen TNR 12/17/16 12:25 RHONDA Antibody Screen Negative 12/17/16 12:25 Crossmatch See Detail 12/17/16 12:25
--- NOTE | 2016-12-22 15:40 | Fluoroscopy Report ---
Single view abdomen with fluoroscopic G-tube placement: History: Assess placement. Findings: The tip of the G-tube appears to be stomach. Contrast is noted in stomach. No extravasation of contrast. No contrast is identified in the duodenum. Impression: Tip of the G-tube appears to be in the stomach. No extravasation of contrast.
--- NOTE | 2016-12-22 16:24 | Gastroenterology Progress Note ---
Assessment and Plan 1.leaking PEG tube -S/P PEG tube placement by Dr. Durbin on 12/16 that was uneventful -leakage of bilious and clear drainage noted around PEG tube since placement, possible lack of good support tissue around the tube and intrinsic muscle mass -G tube study confirmed PEG tube placement of tip in the stomach today -nursing instructed to place a pressure dressing over PEG tube site overnight and change PRN -continue IVFs and hold tube feedings until leakage has resolved Subjective Date of service: 12/22/16 Principal diagnosis: leaking around G tube Interval history: Patient alert but nonverbal, resting in bed with family at bedside. Peg site without s/s of infection with no redness, swelling, or purulent draining, however Peg tube dressing is saturated with bilious clear drainage. Nurse contacted and requested to change dressing with a pressure dressing. G tube study today confirmed placement of tip of PEG in the stomach. Tube feeding currently stopped and IVFs being received. Objective - Constitutional Vitals: Temp Pulse Resp BP Pulse Ox 97.4 F L 86 22 88/57 99 12/22/16 09:43 12/22/16 09:43 12/22/16 09:43 12/22/16 09:43 12/22/16 09:43 General appearance: no acute distress - Respiratory Respiratory: bilateral: other (coarse) - Cardiovascular Rhythm: regular Heart Sounds: Present: S1 & S2 - Gastrointestinal General gastrointestinal: Present: soft, non-distended, normal bowel sounds, other (PEG tube intact) - Integumentary Integumentary: Present: warm, dry - Labs CBC & Chem 7: 12/22/16 09:50 12/22/16 09:50 Labs: Laboratory Results - last 24 hr 12/22/16 12/22/16 12/22/16 00:33 05:58 09:50 WBC 11.1 H RBC 3.06 L Hgb 8.9 L Hct 27.5 L MCV 90 MCH 29 MCHC 32 RDW 18.4 H Plt Count 61 L Lymph % (Auto) 1.9 L [place] % (Auto) 8.3 H Eos % (Auto) 0.1 Baso % (Auto) 0.1 Lymph # 0.2 L [place] # 0.9 H Eos # 0.0 Baso # 0.0 Seg Neutrophils % 89.6 H Seg Neutrophils # 9.9 H Sodium Potassium Chloride Carbon Dioxide Anion Gap BUN Creatinine Estimated GFR BUN/Creatinine Ratio Glucose POC Glucose 154 H 199 H Calcium 12/22/16 12/22/16 09:50 12:10 WBC RBC Hgb Hct MCV MCH MCHC RDW Plt Count Lymph % (Auto) [place] % (Auto) Eos % (Auto) Baso % (Auto) Lymph # [place] # Eos # Baso # Seg Neutrophils % Seg Neutrophils # Sodium 136 L Potassium 5.0 Chloride 96.5 L Carbon Dioxide 26 Anion Gap 19 BUN 46 H Creatinine 3.2 H Estimated GFR 23 BUN/Creatinine Ratio 14.37 Glucose 154 H POC Glucose 172 H Calcium 8.6
[2016-12-22] MEDS ORDERED: MORPHINE IV ONE ×2 (17:26→18:00)
[2016-12-22] MEDS: PROVENTIL IH PRN (18:08)
[2016-12-23] MEDS: PROTONIX FEEDTUBE SCH ×2 (06:34→22:33)
[2016-12-23] MEDS: NOVOLOG SUB-Q SCH (06:35)
[2016-12-23 06:37] LABS: Hematocrit 28.9 % (35.5-45.6); Hemoglobin 9.3 gm/dl (11.8-15.2); Mean Corpuscular HGB Conc 32 % (32-34); Mean Corpuscular Hemoglobin 29 pg (28-32); Mean Corpuscular Volume 89 fl (84-94); Red Blood Count 3.25 M/mm3 (3.65-5.03); Red Cell Distribution Width 17.9 % (13.2-15.2)
[2016-12-23 06:42] LABS: Platelet Count 68 K/mm3 (140-440)
[2016-12-23 06:53] LABS: BUN/Creatinine Ratio 14.86; Calcium 8.7 mg/dL (8.4-10.2); Chloride 96.5 mmol/L (98-107); Potassium 5.2 mmol/L (3.6-5.0)
[2016-12-23 09:45] LABS: Basophils % (Manual) 0 % (0.0-1.8); Blastocytes % (Manual) 0 %; Eosinophils % (Manual) 0 % (0.0-4.3)
[2016-12-23 09:46] LABS: Anisocytosis 1+; Diff Status Complete; Hypochromasia 1+; Target Cells Few
[2016-12-23 09:47] LABS: Giant Platelets Few; Large Platelets Few; Platelet Estimate Cons
--- NOTE | 2016-12-23 10:45 | Gastroenterology Progress Note ---
Assessment and Plan GI: PEG tube feedings restarted, will watch progress - if stable ok to d/c from GI standpoint - call if needed Subjective Date of service: 12/23/16 Principal diagnosis: leaking around G tube Interval history: - no issues overnight per staff Objective - Constitutional Vitals: Temp Pulse Resp BP Pulse Ox 97.4 F L 82 22 114/57 100 12/23/16 07:43 12/23/16 07:43 12/23/16 07:43 12/23/16 07:43 12/23/16 08:58 General appearance: no acute distress - Respiratory Respiratory: bilateral: CTA - Cardiovascular Rhythm: regular Heart Sounds: Present: S1 & S2 - Gastrointestinal General gastrointestinal: Present: soft, non-tender - Labs CBC & Chem 7: 12/23/16 05:09 12/23/16 05:09 Labs: Laboratory Results - last 24 hr 12/22/16 12/22/16 12/23/16 12:10 18:07 05:09 WBC 16.0 H RBC 3.25 L Hgb 9.3 L Hct 28.9 L MCV 89 MCH 29 MCHC 32 RDW 17.9 H Plt Count 68 L Add Manual Diff Complete Total Counted 100 Seg Neutrophils % Power Transformer Assembler Seg Neuts % (Manual) 83.0 H Band Neutrophils % 13.0 Lymphocytes % (Manual) 1.0 L Reactive Lymphs % (Man) 0 Monocytes % (Manual) 3.0 Eosinophils % (Manual) 0 Basophils % (Manual) 0 Metamyelocytes % 0 Myelocytes % 0 Promyelocytes % 0 Blast Cells % 0 Nucleated RBC % Not Reportable Seg Neutrophils # Man 13.3 H Band Neutrophils # 2.1 Lymphocytes # (Manual) 0.2 L Abs React Lymphs (Man) 0.0 Monocytes # (Manual) 0.5 Eosinophils # (Manual) 0.0 Basophils # (Manual) 0.0 Metamyelocytes # 0.0 Myelocytes # 0.0 Promyelocytes # 0.0 Blast Cells # 0.0 WBC Morphology Not Reportable Hypersegmented Neuts Not Reportable Hyposegmented Neuts Not Reportable Hypogranular Neuts Not Reportable Smudge Cells Not Reportable Toxic Granulation Not Reportable Toxic Vacuolation Not Reportable Dohle Bodies Not Reportable Pelger-Huet Anomaly Not Reportable Demetra Rods Not Reportable Platelet Estimate Cons Clumped Platelets Not Reportable Plt Clumps, EDTA Not Reportable Large Platelets Few Giant Platelets Few Platelet Satelliting Not Reportable Plt Morphology Comment Not Reportable RBC Morphology Not Reportable Dimorphic RBCs Not Reportable Polychromasia Not Reportable Hypochromasia 1+ Poikilocytosis Not Reportable Anisocytosis 1+ Microcytosis Not Reportable Macrocytosis Not Reportable Spherocytes Not Reportable Pappenheimer Bodies Not Reportable Sickle Cells Not Reportable Target Cells Few Tear Drop Cells Not Reportable Ovalocytes Not Reportable Helmet Cells Not Reportable [place] Bodies Not Reportable [place] Rings Not Reportable [place] Cells Not Reportable Bite Cells Not Reportable Crenated Cell Not Reportable Elliptocytes Not Reportable Acanthocytes (Spur) Not Reportable Rouleaux Not Reportable Hemoglobin C Crystals Not Reportable Schistocytes Not Reportable Malaria parasites Not Reportable Romeo Bodies Not Reportable Hem Pathologist Commnt No Sodium Potassium Chloride Carbon Dioxide Anion Gap BUN Creatinine Estimated GFR BUN/Creatinine Ratio Glucose POC Glucose 172 H 166 H Calcium 12/23/16 12/23/16 05:09 06:38 WBC RBC Hgb Hct MCV MCH MCHC RDW Plt Count Add Manual Diff Total Counted Seg Neutrophils % Seg Neuts % (Manual) Band Neutrophils % Lymphocytes % (Manual) Reactive Lymphs % (Man) Monocytes % (Manual) Eosinophils % (Manual) Basophils % (Manual) Metamyelocytes % Myelocytes % Promyelocytes % Blast Cells % Nucleated RBC % Seg Neutrophils # Man Band Neutrophils # Lymphocytes # (Manual) Abs React Lymphs (Man) Monocytes # (Manual) Eosinophils # (Manual) Basophils # (Manual) Metamyelocytes # Myelocytes # Promyelocytes # Blast Cells # WBC Morphology Hypersegmented Neuts Hyposegmented Neuts Hypogranular Neuts Smudge Cells Toxic Granulation Toxic Vacuolation Dohle Bodies Pelger-Huet Anomaly Demetra Rods Platelet Estimate Clumped Platelets Plt Clumps, EDTA Large Platelets Giant Platelets Platelet Satelliting Plt Morphology Comment RBC Morphology Dimorphic RBCs Polychromasia Hypochromasia Poikilocytosis Anisocytosis Microcytosis Macrocytosis Spherocytes Pappenheimer Bodies Sickle Cells Target Cells Tear Drop Cells Ovalocytes Helmet Cells [place] Bodies [place] Rings [place] Cells Bite Cells Crenated Cell Elliptocytes Acanthocytes (Spur) Rouleaux Hemoglobin C Crystals Schistocytes Malaria parasites Romeo Bodies Hem Pathologist Commnt Sodium 137 Potassium 5.2 H Chloride 96.5 L Carbon Dioxide 23 Anion Gap 23 BUN 55 H Creatinine 3.7 H Estimated GFR 20 BUN/Creatinine Ratio 14.86 Glucose 149 H POC Glucose 201 H Calcium 8.7
--- NOTE | 2016-12-23 12:29 | Progress Note ---
Assessment and Plan Assessment and plan: S/P cardiac arrest - Patient extubated on 12/11 - Patient needs frequent suctioning - patient has gurgling sounds - PEG tube feeding restarted Bilateral DM leg ulcer - treated with IV rocephin for 10days - On topical antibacterials DM - Sliding scale insulin Acute on chronic kidney disease - Discussed with the family and agreed to D/C dialysis and discharge to Hospice CAD Chronic systolic heart failure EF is 10-15% a.fib - Low-dose carvedilol - Cardiology following Thrombocytopenia - platelet 68 - Hem/Onc consult appreciated GI bleed - Secondary to gastritis/tendinitis - Continue PPI - hemoglobin 9.3 this morning Severe Malnutrition with cachexia - will resume PEG feeding once fixed DVT prophylaxis - SCD Disposition - DC his to Hospice, discussed with the briefcase sewer - Discussed with his families yesterday prognosis is poor. History Interval history: Patient was seen and evaluated this morning, PEG tube was fixed and restart on tube feeding. Dialysis stopped per the agreement of his families. Hospitalist Physical - Physical exam Narrative exam: Patient extubated on 12/11. PEG tube get fixed and restarted back on Tube feeding. The patient appeared chronically sick looking. Vital signs as documented. Head exam is unremarkable. No scleral icterus . Neck is without jugular venous distension, thyromegaly, or carotid bruits. Lungs gurgling sound and wheezing on the lower lung zones. Cardiac exam reveals regular rate and Rhythm. First and second heart sounds normal. No murmurs, rubs or gallops. Abdominal exam reveals PEG tube in place. Extremities significant for bilateral leg ulcer around the calf area, clean dressing around it. Edema in the upper extremities. MUSIC CRITIC: Alert. - Constitutional Vitals: Temp Pulse Resp BP Pulse Ox 97.4 F L 82 22 114/57 100 12/23/16 07:43 12/23/16 07:43 12/23/16 07:43 12/23/16 07:43 12/23/16 08:58 General appearance: Present: no acute distress, cachectic, other (ill looking) Results - Labs CBC & Chem 7: 12/23/16 05:09 12/23/16 05:09 Labs: Laboratory Last Values WBC 16.0 K/mm3 (4.5-11.0) H 12/23/16 05:09 RBC 3.25 M/mm3 (3.65-5.03) L 12/23/16 05:09 Hgb 9.3 gm/dl (11.8-15.2) L 12/23/16 05:09 Hct 28.9 % (35.5-45.6) L 12/23/16 05:09 MCV 89 fl (84-94) 12/23/16 05:09 MCH 29 pg (28-32) 12/23/16 05:09 MCHC 32 % (32-34) 12/23/16 05:09 RDW 17.9 % (13.2-15.2) H 12/23/16 05:09 Plt Count 68 K/mm3 (140-440) L 12/23/16 05:09 Lymph % (Auto) 1.9 % (13.4-35.0) L 12/22/16 09:50 [place] % (Auto) 8.3 % (0.0-7.3) H 12/22/16 09:50 Eos % (Auto) 0.1 % (0.0-4.3) 12/22/16 09:50 Baso % (Auto) 0.1 % (0.0-1.8) 12/22/16 09:50 Lymph # 0.2 K/mm3 (1.2-5.4) L 12/22/16 09:50 [place] # 0.9 K/mm3 (0.0-0.8) H 12/22/16 09:50 Eos # 0.0 K/mm3 (0.0-0.4) 12/22/16 09:50 Baso # 0.0 K/mm3 (0.0-0.1) 12/22/16 09:50 Add Manual Diff Complete 12/23/16 05:09 Total Counted 100 12/23/16 05:09 Seg Neutrophils % Machine Operator General 12/23/16 05:09 Seg Neuts % (Manual) 83.0 % (40.0-70.0) H 12/23/16 05:09 Band Neutrophils % 13.0 % 12/23/16 05:09 Lymphocytes % (Manual) 1.0 % (13.4-35.0) L 12/23/16 05:09 Reactive Lymphs % (Man) 0 % 12/23/16 05:09 Monocytes % (Manual) 3.0 % (0.0-7.3) 12/23/16 05:09 Eosinophils % (Manual) 0 % (0.0-4.3) 12/23/16 05:09 Basophils % (Manual) 0 % (0.0-1.8) 12/23/16 05:09 Metamyelocytes % 0 % 12/23/16 05:09 Myelocytes % 0 % 12/23/16 05:09 Promyelocytes % 0 % 12/23/16 05:09 Blast Cells % 0 % 12/23/16 05:09 Nucleated RBC % Not Reportable 12/23/16 05:09 Seg Neutrophils # 9.9 K/mm3 (1.8-7.7) H 12/22/16 09:50 Seg Neutrophils # Man 13.3 K/mm3 (1.8-7.7) H 12/23/16 05:09 Band Neutrophils # 2.1 K/mm3 12/23/16 05:09 Lymphocytes # (Manual) 0.2 K/mm3 (1.2-5.4) L 12/23/16 05:09 Abs React Lymphs (Man) 0.0 K/mm3 12/23/16 05:09 Monocytes # (Manual) 0.5 K/mm3 (0.0-0.8) 12/23/16 05:09 Eosinophils # (Manual) 0.0 K/mm3 (0.0-0.4) 12/23/16 05:09 Basophils # (Manual) 0.0 K/mm3 (0.0-0.1) 12/23/16 05:09 Metamyelocytes # 0.0 K/mm3 12/23/16 05:09 Myelocytes # 0.0 K/mm3 12/23/16 05:09 Promyelocytes # 0.0 K/mm3 12/23/16 05:09 Blast Cells # 0.0 K/mm3 12/23/16 05:09 WBC Morphology Not Reportable 12/23/16 05:09 Hypersegmented Neuts Not Reportable 12/23/16 05:09 Hyposegmented Neuts Not Reportable 12/23/16 05:09 Hypogranular Neuts Not Reportable 12/23/16 05:09 Smudge Cells Not Reportable 12/23/16 05:09 Toxic Granulation Not Reportable 12/23/16 05:09 Toxic Vacuolation Not Reportable 12/23/16 05:09 Dohle Bodies Not Reportable 12/23/16 05:09 Pelger-Huet Anomaly Not Reportable 12/23/16 05:09 Demetra Rods Not Reportable 12/23/16 05:09 Platelet Estimate Cons 12/23/16 05:09 Clumped Platelets Not Reportable 12/23/16 05:09 Plt Clumps, EDTA Not Reportable 12/23/16 05:09 Large Platelets Few 12/23/16 05:09 Giant Platelets Few 12/23/16 05:09 Platelet Satelliting Not Reportable 12/23/16 05:09 Plt Morphology Comment Not Reportable 12/23/16 05:09 RBC Morphology Not Reportable 12/23/16 05:09 Dimorphic RBCs Not Reportable 12/23/16 05:09 Polychromasia Not Reportable 12/23/16 05:09 Hypochromasia 1+ 12/23/16 05:09 Poikilocytosis Not Reportable 12/23/16 05:09 Anisocytosis 1+ 12/23/16 05:09 Microcytosis Not Reportable 12/23/16 05:09 Macrocytosis Not Reportable 12/23/16 05:09 Spherocytes Not Reportable 12/23/16 05:09 Pappenheimer Bodies Not Reportable 12/23/16 05:09 Sickle Cells Not Reportable 12/23/16 05:09 Target Cells Few 12/23/16 05:09 Tear Drop Cells Not Reportable 12/23/16 05:09 Ovalocytes Not Reportable 12/23/16 05:09 Helmet Cells Not Reportable 12/23/16 05:09 Don-Sobieski Bodies Not Reportable 12/23/16 05:09 [place] Rings Not Reportable 12/23/16 05:09 Genia Cells Not Reportable 12/23/16 05:09 Bite Cells Not Reportable 12/23/16 05:09 Crenated Cell Not Reportable 12/23/16 05:09 Elliptocytes Not Reportable 12/23/16 05:09 Acanthocytes (Spur) Not Reportable 12/23/16 05:09 Rouleaux Not Reportable 12/23/16 05:09 Hemoglobin C Crystals Not Reportable 12/23/16 05:09 Schistocytes Not Reportable 12/23/16 05:09 Malaria parasites Not Reportable 12/23/16 05:09 Romeo Bodies Not Reportable 12/23/16 05:09 Hem Pathologist Commnt No 12/23/16 05:09 PT 15.5 Sec. (12.2-14.9) H 12/16/16 01:09 INR 1.17 (0.87-1.13) H 12/16/16 01:09 APTT 45.4 Sec. (24.2-36.6) H 12/02/16 19:20 Heparin Anti-Xa Level < 0.10 U.I./ml (0.3-0.7) L 12/03/16 01:15 POC ABG pH 7.517 (7.35-7.45) H 12/11/16 09:05 POC ABG pCO2 32.2 (35-45) L 12/11/16 09:05 POC ABG pO2 97 (80-105) 12/11/16 09:05 POC ABG HCO3 26.1 12/11/16 09:05 POC ABG Total CO2 27 12/11/16 09:05 POC ABG O2 Sat 98 12/11/16 09:05 POC ABG Base Excess 3 12/11/16 09:05 FiO2 30 % 12/11/16 09:05 Sodium 137 mmol/L (137-145) 12/23/16 05:09 Potassium 5.2 mmol/L (3.6-5.0) H 12/23/16 05:09 Chloride 96.5 mmol/L (98-107) L 12/23/16 05:09 Carbon Dioxide 23 mmol/L (22-30) 12/23/16 05:09 Anion Gap 23 mmol/L 12/23/16 05:09 BUN 55 mg/dL (9-20) H 12/23/16 05:09 Creatinine 3.7 mg/dL (0.8-1.5) H 12/23/16 05:09 Estimated GFR 20 ml/min 12/23/16 05:09 BUN/Creatinine Ratio 14.86 % 12/23/16 05:09 Glucose 149 mg/dL (75-100) H 12/23/16 05:09 POC Glucose 201 (70-105) H 12/23/16 06:38 Hemoglobin A1c 10.6 % (4-6) H 11/28/16 16:02 Lactic Acid 2.60 mmol/L (0.7-2.0) H* 12/04/16 13:22 Calcium 8.7 mg/dL (8.4-10.2) 12/23/16 05:09 Magnesium 2.10 mg/dL (1.7-2.3) 12/08/16 04:00 Total Bilirubin 1.90 mg/dL (0.1-1.2) H 12/16/16 08:25 AST 23 units/L (5-40) 12/16/16 08:25 ALT 32 units/L (7-56) 12/16/16 08:25 Alkaline Phosphatase 104 units/L (35-129) 12/16/16 08:25 Ammonia 90.0 umol/L (25-60) H 12/08/16 11:50 Total Creatine Kinase 59 units/L (55-170) 12/02/16 19:23 CK-MB (CK-2) 1.9 ng/mL (0.0-4.0) 12/02/16 19:23 CK-MB (CK-2) Rel Index 3.2 (0-4) 12/02/16 19:23 Troponin T 0.098 ng/mL (0.00-0.029) H 12/03/16 08:01 Total Protein 5.5 g/dL (6.3-8.2) L 12/16/16 08:25 Albumin 2.3 g/dL (3.9-5) L 12/16/16 08:25 Albumin/Globulin Ratio 0.7 % 12/16/16 08:25 Triglycerides 72 mg/dL (2-149) 11/30/16 20:37 Cholesterol 132 mg/dL (50-199) 11/30/16 20:37 LDL Cholesterol Direct 82 mg/dL (50-130) 11/30/16 20:37 HDL Cholesterol 36 mg/dL (40-59) L 11/30/16 20:37 Cholesterol/HDL Ratio 3.66 % 11/30/16 20:37 TSH 0.764 mlU/mL (0.270-4.200) 12/08/16 11:50 Urine Color Yellow (Yellow) 11/30/16 10:00 Urine Turbidity Clear (Clear) 11/30/16 10:00 Urine pH 6.0 (5.0-7.0) 11/30/16 10:00 Ur Specific [place] 1.018 (1.003-1.030) 11/30/16 10:00 Urine Protein 30 mg/dl mg/dL (Negative) 11/30/16 10:00 Urine Glucose (UA) Neg mg/dL (Negative) 11/30/16 10:00 Urine Ketones Neg mg/dL (Negative) 11/30/16 10:00 Urine Blood Neg (Negative) 11/30/16 10:00 Urine Nitrite Neg (Negative) 11/30/16 10:00 Urine Bilirubin Neg (Negative) 11/30/16 10:00 Urine Urobilinogen < 2.0 mg/dL (<2.0) 11/30/16 10:00 Ur Leukocyte Esterase Tr (Negative) 11/30/16 10:00 Urine WBC (Auto) 2.0 /HPF (0.0-6.0) 11/30/16 10:00 Urine RBC (Auto) < 1.0 /HPF (0.0-6.0) 11/30/16 10:00 U Epithel Cells (Auto) < 1.0 /HPF (0-13.0) 11/30/16 10:00 Urine Eosinophils None seen (None Seen) 11/30/16 10:00 Urine Creatinine 78.6 mg/dL (0.1-20.0) H 11/30/16 10:00 Urine Sodium 10 mEq/L 11/30/16 10:00 Vancomycin Trough 19.0 ug/mL (5.0-20.0) 12/03/16 06:04 Random Vancomycin 24.7 ug/mL (0-40.0) 12/05/16 05:00 Hepatitis A IgM Ab Non-reactive (NonReactive) 12/08/16 12:20 Hep Bs Antigen Non-reactive (Negative) 12/08/16 12:20 Hep B Core IgM Ab Non-reactive (NonReactive) 12/08/16 12:20 Hepatitis C Antibody Non-reactive (NonReactive) 12/08/16 12:20 Blood Type B POSITIVE 12/17/16 12:25 Antibody Screen TNR 12/17/16 12:25 RHONDA Antibody Screen Negative 12/17/16 12:25 Crossmatch See Detail 12/17/16 12:25
--- NOTE | 2016-12-23 12:47 | Event Note ---
Date: 12/23/16 family has decided on hospice care without dialysis per primary team, will sign off, call if needed again. Thanks
[2016-12-23] MEDS: TYLENOL PO PRN ×2 (14:23→19:01)
--- NOTE | 2016-12-23 14:47 | Event Note ---
Date: 12/23/16 I called Ms. Burgess (spouse) @[phone] and discussed about the CODE STATUS of Mr Burgess and she decided him to DNR/DNI.
[2016-12-23] MEDS: DAKIN'S FULL STRENGTH TP SCH ×2 (19:53→22:34)
[2016-12-23] MEDS: COREG PO SCH (22:32)
[2016-12-24] MEDS: NOVOLOG SUB-Q SCH ×2 (07:46→07:47)
--- NOTE | 2016-12-24 10:41 | Discharge Summary ---
Providers - Providers Date of Admission: 11/28/16 13:20 Date of discharge: 12/25/16 Attending physician: LACIE EPPS MD 11/28/16 12:50 Consult to Physician [CONS] Routine Consulting Provider: BRANDY DAS Reason For Exam: DIABETIC BILATERAL LEG ULCERS Place consult to:: DR. DAS Notified:: LEFT MESSAGE ON CELL Phone number called:: [phone] Was contact made?: Yes If yes, spoke with:: LEFT MESSAGE ON CELL Time called:: 14:12 Comment:: ELZA NOTIFIED 11/28/16 13:18 Consult to Wound/ET Nurse [CONS] Routine Reason For Exam: wound eval , DIABETIC BLE ULCERS. 11/29/16 09:54 Consult to Physician [CONS] Routine Consulting Provider: JOE KAPOOR Reason For Exam: TREMAINE Place consult to:: Dr Kapoor Notified:: no 11/30/16 09:41 Consult to Physician [CONS] Routine Consulting Provider: CHELLE SUTTON Reason For Exam: Bilateral diabetic leg ulcer, for debridement Place consult to:: vascular surgery Notified:: overhead page Was contact made?: Yes Time called:: 10:58 Comment:: nurse talk to sheila 12/02/16 11:24 Physical Therapy Evaluation and Treat [CONS] Routine Comment: Reason For Exam: gen weakness 12/07/16 15:30 Consult to Physician [CONS] Routine Consulting Provider: ABBE JACKSON Reason For Exam: sudden cardiac arrest12/02/16, anoxic encephalopath Place consult to:: Ana Notified:: Desi Saul Phone number called:: [phone] Was contact made?: No Time called:: 16:28 Comment:: Left message on voicemail 12/07/16 15:35 Consult to Physician [CONS] Routine Consulting Provider: KING CASTELAN Reason For Exam: anemia/heme-positive stool Place consult to:: Dr. Castelan Notified:: Roberto Sparks Phone number called:: [phone] Was contact made?: Yes If yes, spoke with:: Roberto Sparks Time called:: 16:29 Comment:: Awaiting return call from 12/07/16 16:04 Consult to Physician [CONS] Routine Consulting Provider: NEAL CABRERA Reason For Exam: Vas-Cath Place consult to:: Sheila Treviño Notified:: Yes Phone number called:: Overhead page Was contact made?: Yes If yes, spoke with:: Sheila Treviño Time called:: 16:30 Comment:: Will see patient 12/08/16 10:18 Consult to Physician [CONS] Routine Consulting Provider: DAPHNE GARCIA Reason For Exam: Decreased plt count Place consult to:: [facility] Notified:: Luli Phone number called:: [phone] Was contact made?: Yes If yes, spoke with:: Luli Time called:: 10:19 Comment:: Will follow-up 12/14/16 15:22 Speech Therapy Evaluation and Treat [CONS] Routine Reason For Exam: drowsy, s/p extubation 12/15/16 14:54 Consult to Physician [CONS] Routine Consulting Provider: JOSÉ DURBIN Reason For Exam: peg tube placement Place consult to:: Dr. Durbin's office Notified:: yes Phone number called:: [phone] Was contact made?: Yes If yes, spoke with:: Lauren Cooper called:: 15:00 12/16/16 20:23 Consult to Dietitian/Nutrition [CONS] Routine Physician Instructions: May initiate TF after 1800 Reason For Exam: Reason for Consult: Write/Manage Tube Feeding 12/19/16 12:56 Physical Therapy Evaluation and Treat [CONS] Routine Comment: Reason For Exam: de conditioning 12/19/16 12:57 Occupational Therapy Evaluate and Treat [CONS] Routine Comment: Reason For Exam: deconditioning Speech Therapy Evaluation and Treat [CONS] Routine Reason For Exam: eval & treat Primary care physician: PIYUSH DURAN Hospitalization Reason for admission: CKD, bilateral leg ulcer, sepsis, acute respiratory failure Condition: Poor Hospital course: Admission HPI: A 71 year-old -[place] male presented to us as a direct admit from Dr Grimm's office for bilateral lower extremities diabetic ulcers and end-stage renal disease. Patient presented with multiple open wounds to the lower extremities closing +4 edema noted. Patient past medical history hypertension, diabetes, AICD. Patient was admitted to the floor and he was treated for sepsis, bilateral leg ulcer and infectious disease also involved in the care of this patient. Patient showed improvement and one day when the family said him sufficient aspirated and went to a systolic and she was successfully resuscitated and intubated. Transferred to the ICU while in the ICU, the patient took long time to wean from mechanical ventilation. Patient has systolic CHF with ejection fraction of 10%. And patient couldn't be on his CHF medication because of hypotension. Patient was on pressors for some time. Patient's condition was getting progressively worse. Patient in need hemodialysis and he was put on hemodialysis. Patient was at risk for aspiration and he was placed. I have discussed the condition in detail with his family is and the family decided to take off from hemodialysis and discharge to hospice care. Patient's prognosis was very poor and the family are aware of his condition. Patient was DO NOT RESUSCITATE/ DO NOT INTUBATE as a time of discharge. Patient's condition was critical of the time of discharge to hospice. Disposition: [facility] ([facility] Time spent for discharge: 45 minutes - Discharge Diagnoses (1) Acute and chronic respiratory failure with hypoxia Status: Acute (2) Anemia in CKD (chronic kidney disease) Status: Acute Qualifiers: Chronic kidney disease stage: C (3) Hx-sudden cardiac arrest Status: Acute (4) Infected pressure ulcer Status: Acute Qualifiers: Pressure ulcer stage: P (5) Malnutrition Status: Acute (6) Thrombocytopenia Status: Acute (7) Mitral regurgitation Status: Chronic Qualifiers: Cardiac valve disease etiology: C (8) Pulmonary hypertension Status: Chronic (9) Acute on chronic renal failure Status: Acute Qualifiers: Acute renal failure type: A Chronic kidney disease stage: C (10) Acute on chronic systolic heart failure Status: Acute (11) COPD exacerbation Status: Acute (12) Dehydration Status: Acute (13) CAD (coronary artery disease) Status: Chronic Qualifiers: Coronary Disease-Associated Artery/Lesion type: C [place] vs. transplanted heart: N Associated angina: A (14) COPD (chronic obstructive pulmonary disease) Status: Chronic Qualifiers: COPD type: C Chronic bronchitis type: C Emphysema type: E (15) Diabetes Status: Chronic Qualifiers: Diabetes mellitus type: type 2 Diabetes mellitus complication status: D Diabetes mellitus complication detail: D Diabetic retinopathy severity: D Proliferative retinopathy type: P Diabetes mellitus macular edema: D Diabetes mellitus fpc insulin use: D Laterality: L Chronic kidney disease stage: C (16) HTN (hypertension) Status: Chronic Qualifiers: Hypertension type: H (17) Hx of CABG Status: Chronic (18) Ischemic cardiomyopathy Status: Chronic Core Measure Documentation - Palliative Care Palliative Care/ Comfort Measures: Hospice Care - Core Measures Any of the following diagnoses?: history only (CHF) Exam - Physical Exam Narrative exam: Patient is on IN O2 and PEG tube. The patient appeared chronically sick looking. Vital signs as documented. Head exam is unremarkable. No scleral icterus . Neck is without jugular venous distension, thyromegaly, or carotid bruits. Lungs gurgling sound and wheezing. Cardiac exam reveals regular rate and Rhythm. Abdominal exam reveals PEG tube in place. Extremities significant for bilateral leg ulcer around the calf area, clean dressing around it. Edema in the upper extremities. DYE TUB TENDER: Alert non communicative. - Constitutional Vitals: Temp Pulse Resp BP Pulse Ox 97.7 F 84 20 105/54 97 12/24/16 08:00 12/24/16 08:00 12/24/16 08:00 12/24/16 08:00 12/24/16 08:00 Plan Activity: advance as tolerated Weight Bearing Status: Weight Bear as Tolerated Diet: per dietitian instruction, other (PEG tube feeding) Follow up with: PIYUSH DURAN MD [Primary Care Provider] - 7 Days
[2016-12-24] MEDS: COREG PO SCH ×4 (11:10→22:06)
[2016-12-24] MEDS: TRIPLE ANTIBIOTIC TP SCH ×2 (11:24→11:31)
[2016-12-24] MEDS: PROTONIX FEEDTUBE SCH ×3 (11:24→22:04)
[2016-12-24] MEDS: TYLENOL PO PRN ×2 (11:27→11:33)
[2016-12-24] MEDS: LEVEMIR SUB-Q SCH (11:28)
--- NOTE | 2016-12-24 14:48 | Progress Note ---
Assessment and Plan Assessment and plan: S/P cardiac arrest - Patient extubated on 12/11 - Patient needs frequent suctioning - patient has gurgling sounds - PEG tube feeding restarted Bilateral DM leg ulcer - treated with IV rocephin for 10days - On topical antibacterials DM - Sliding scale insulin Acute on chronic kidney disease - Discussed with the family and agreed to D/C dialysis and discharge to Hospice CAD Chronic systolic heart failure EF is 10-15% a.fib - Low-dose carvedilol - Cardiology following Thrombocytopenia - platelet 68 - Hem/Onc consult appreciated GI bleed - Secondary to gastritis/tendinitis - Continue PPI - hemoglobin is holding Severe Malnutrition with cachexia - will resume PEG feeding once fixed Hypotension - Patient is DNR and deosn't need to be on pressors - we can't give him fluid because of his respiratory compromise DVT prophylaxis - SCD Disposition - DC his to Hospice, discussed with the supportive employment case manager - Discussed with his families yesterday - Comfort measures, Give morphine as needed prognosis is poor. - Patient Problems (1) Acute and chronic respiratory failure with hypoxia Current Visit: Yes Status: Acute (2) Anemia in CKD (chronic kidney disease) Current Visit: Yes Status: Acute Qualifiers: Chronic kidney disease stage: C (3) Hx-sudden cardiac arrest Current Visit: Yes Status: Acute (4) Infected pressure ulcer Current Visit: Yes Status: Acute Qualifiers: Pressure ulcer stage: P (5) Malnutrition Current Visit: Yes Status: Acute (6) Thrombocytopenia Current Visit: Yes Status: Acute (7) Mitral regurgitation Current Visit: Yes Status: Chronic Qualifiers: Cardiac valve disease etiology: C (8) Pulmonary hypertension Current Visit: Yes Status: Chronic (9) Acute on chronic renal failure Current Visit: No Status: Acute Qualifiers: Acute renal failure type: A Chronic kidney disease stage: C (10) Acute on chronic systolic heart failure Current Visit: No Status: Acute (11) COPD exacerbation Current Visit: No Status: Acute (12) Dehydration Current Visit: No Status: Acute (13) CAD (coronary artery disease) Current Visit: No Status: Chronic Qualifiers: Coronary Disease-Associated Artery/Lesion type: C [place] vs. 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 Dialysis stopped per the agreement of his families. Hospitalist Physical - Physical exam Narrative exam: Patient is on IN O2 and PEG tube. The patient appeared chronically sick looking. Vital signs as documented. Head exam is unremarkable. No scleral icterus . Neck is without jugular venous distension, thyromegaly, or carotid bruits. Lungs gurgling sound and wheezing. Cardiac exam reveals regular rate and Rhythm. Abdominal exam reveals PEG tube in place. Extremities significant for bilateral leg ulcer around the calf area, clean dressing around it. Edema in the upper extremities. 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 - Constitutional Vitals: Temp Pulse Resp BP Pulse Ox 97.0 F L 90 16 80/50 98 12/24/16 11:55 12/24/16 13:46 12/24/16 11:55 12/24/16 11:55 12/24/16 12:35 General appearance: Present: no acute distress, cachectic, other (ill looking) Results - Labs CBC & Chem 7: 12/23/16 05:09 12/23/16 05:09 Labs: Laboratory Last Values WBC 16.0 K/mm3 (4.5-11.0) H 12/23/16 05:09 RBC 3.25 M/mm3 (3.65-5.03) L 12/23/16 05:09 Hgb 9.3 gm/dl (11.8-15.2) L 12/23/16 05:09 Hct 28.9 % (35.5-45.6) L 12/23/16 05:09 MCV 89 fl (84-94) 12/23/16 05:09 MCH 29 pg (28-32) 12/23/16 05:09 MCHC 32 % (32-34) 12/23/16 05:09 RDW 17.9 % (13.2-15.2) H 12/23/16 05:09 Plt Count 68 K/mm3 (140-440) L 12/23/16 05:09 Lymph % (Auto) 1.9 % (13.4-35.0) L 12/22/16 09:50 [place] % (Auto) 8.3 % (0.0-7.3) H 12/22/16 09:50 Eos % (Auto) 0.1 % (0.0-4.3) 12/22/16 09:50 Baso % (Auto) 0.1 % (0.0-1.8) 12/22/16 09:50 Lymph # 0.2 K/mm3 (1.2-5.4) L 12/22/16 09:50 [place] # 0.9 K/mm3 (0.0-0.8) H 12/22/16 09:50 Eos # 0.0 K/mm3 (0.0-0.4) 12/22/16 09:50 Baso # 0.0 K/mm3 (0.0-0.1) 12/22/16 09:50 Add Manual Diff Complete 12/23/16 05:09 Total Counted 100 12/23/16 05:09 Seg Neutrophils % Perinatal Social Worker 12/23/16 05:09 Seg Neuts % (Manual) 83.0 % (40.0-70.0) H 12/23/16 05:09 Band Neutrophils % 13.0 % 12/23/16 05:09 Lymphocytes % (Manual) 1.0 % (13.4-35.0) L 12/23/16 05:09 Reactive Lymphs % (Man) 0 % 12/23/16 05:09 Monocytes % (Manual) 3.0 % (0.0-7.3) 12/23/16 05:09 Eosinophils % (Manual) 0 % (0.0-4.3) 12/23/16 05:09 Basophils % (Manual) 0 % (0.0-1.8) 12/23/16 05:09 Metamyelocytes % 0 % 12/23/16 05:09 Myelocytes % 0 % 12/23/16 05:09 Promyelocytes % 0 % 12/23/16 05:09 Blast Cells % 0 % 12/23/16 05:09 Nucleated RBC % Not Reportable 12/23/16 05:09 Seg Neutrophils # 9.9 K/mm3 (1.8-7.7) H 12/22/16 09:50 Seg Neutrophils # Man 13.3 K/mm3 (1.8-7.7) H 12/23/16 05:09 Band Neutrophils # 2.1 K/mm3 12/23/16 05:09 Lymphocytes # (Manual) 0.2 K/mm3 (1.2-5.4) L 12/23/16 05:09 Abs React Lymphs (Man) 0.0 K/mm3 12/23/16 05:09 Monocytes # (Manual) 0.5 K/mm3 (0.0-0.8) 12/23/16 05:09 Eosinophils # (Manual) 0.0 K/mm3 (0.0-0.4) 12/23/16 05:09 Basophils # (Manual) 0.0 K/mm3 (0.0-0.1) 12/23/16 05:09 Metamyelocytes # 0.0 K/mm3 12/23/16 05:09 Myelocytes # 0.0 K/mm3 12/23/16 05:09 Promyelocytes # 0.0 K/mm3 12/23/16 05:09 Blast Cells # 0.0 K/mm3 12/23/16 05:09 WBC Morphology Not Reportable 12/23/16 05:09 Hypersegmented Neuts Not Reportable 12/23/16 05:09 Hyposegmented Neuts Not Reportable 12/23/16 05:09 Hypogranular Neuts Not Reportable 12/23/16 05:09 Smudge Cells Not Reportable 12/23/16 05:09 Toxic Granulation Not Reportable 12/23/16 05:09 Toxic Vacuolation Not Reportable 12/23/16 05:09 Dohle Bodies Not Reportable 12/23/16 05:09 Pelger-Huet Anomaly Not Reportable 12/23/16 05:09 Demetra Rods Not Reportable 12/23/16 05:09 Platelet Estimate Cons 12/23/16 05:09 Clumped Platelets Not Reportable 12/23/16 05:09 Plt Clumps, EDTA Not Reportable 12/23/16 05:09 Large Platelets Few 12/23/16 05:09 Giant Platelets Few 12/23/16 05:09 Platelet Satelliting Not Reportable 12/23/16 05:09 Plt Morphology Comment Not Reportable 12/23/16 05:09 RBC Morphology Not Reportable 12/23/16 05:09 Dimorphic RBCs Not Reportable 12/23/16 05:09 Polychromasia Not Reportable 12/23/16 05:09 Hypochromasia 1+ 12/23/16 05:09 Poikilocytosis Not Reportable 12/23/16 05:09 Anisocytosis 1+ 12/23/16 05:09 Microcytosis Not Reportable 12/23/16 05:09 Macrocytosis Not Reportable 12/23/16 05:09 Spherocytes Not Reportable 12/23/16 05:09 Pappenheimer Bodies Not Reportable 12/23/16 05:09 Sickle Cells Not Reportable 12/23/16 05:09 Target Cells Few 12/23/16 05:09 Tear Drop Cells Not Reportable 12/23/16 05:09 Ovalocytes Not Reportable 12/23/16 05:09 Helmet Cells Not Reportable 12/23/16 05:09 [place] Bodies Not Reportable 12/23/16 05:09 [place] Rings Not Reportable 12/23/16 05:09 [place] Cells Not Reportable 12/23/16 05:09 Bite Cells Not Reportable 12/23/16 05:09 Crenated Cell Not Reportable 12/23/16 05:09 Elliptocytes Not Reportable 12/23/16 05:09 Acanthocytes (Spur) Not Reportable 12/23/16 05:09 Rouleaux Not Reportable 12/23/16 05:09 Hemoglobin C Crystals Not Reportable 12/23/16 05:09 Schistocytes Not Reportable 12/23/16 05:09 Malaria parasites Not Reportable 12/23/16 05:09 [place] Bodies Not Reportable 12/23/16 05:09 Hem Pathologist Commnt No 12/23/16 05:09 PT 15.5 Sec. (12.2-14.9) H 12/16/16 01:09 INR 1.17 (0.87-1.13) H 12/16/16 01:09 APTT 45.4 Sec. (24.2-36.6) H 12/02/16 19:20 Heparin Anti-Xa Level < 0.10 U.I./ml (0.3-0.7) L 12/03/16 01:15 POC ABG pH 7.517 (7.35-7.45) H 12/11/16 09:05 POC ABG pCO2 32.2 (35-45) L 12/11/16 09:05 POC ABG pO2 97 (80-105) 12/11/16 09:05 POC ABG HCO3 26.1 12/11/16 09:05 POC ABG Total CO2 27 12/11/16 09:05 POC ABG O2 Sat 98 12/11/16 09:05 POC ABG Base Excess 3 12/11/16 09:05 FiO2 30 % 12/11/16 09:05 Sodium 137 mmol/L (137-145) 12/23/16 05:09 Potassium 5.2 mmol/L (3.6-5.0) H 12/23/16 05:09 Chloride 96.5 mmol/L (98-107) L 12/23/16 05:09 Carbon Dioxide 23 mmol/L (22-30) 12/23/16 05:09 Anion Gap 23 mmol/L 12/23/16 05:09 BUN 55 mg/dL (9-20) H 12/23/16 05:09 Creatinine 3.7 mg/dL (0.8-1.5) H 12/23/16 05:09 Estimated GFR 20 ml/min 12/23/16 05:09 BUN/Creatinine Ratio 14.86 % 12/23/16 05:09 Glucose 149 mg/dL (75-100) H 12/23/16 05:09 POC Glucose 171 (70-105) H 12/24/16 12:33 Hemoglobin A1c 10.6 % (4-6) H 11/28/16 16:02 Lactic Acid 2.60 mmol/L (0.7-2.0) H* 12/04/16 13:22 Calcium 8.7 mg/dL (8.4-10.2) 12/23/16 05:09 Magnesium 2.10 mg/dL (1.7-2.3) 12/08/16 04:00 Total Bilirubin 1.90 mg/dL (0.1-1.2) H 12/16/16 08:25 AST 23 units/L (5-40) 12/16/16 08:25 ALT 32 units/L (7-56) 12/16/16 08:25 Alkaline Phosphatase 104 units/L (35-129) 12/16/16 08:25 Ammonia 90.0 umol/L (25-60) H 12/08/16 11:50 Total Creatine Kinase 59 units/L (55-170) 12/02/16 19:23 CK-MB (CK-2) 1.9 ng/mL (0.0-4.0) 12/02/16 19:23 CK-MB (CK-2) Rel Index 3.2 (0-4) 12/02/16 19:23 Troponin T 0.098 ng/mL (0.00-0.029) H 12/03/16 08:01 Total Protein 5.5 g/dL (6.3-8.2) L 12/16/16 08:25 Albumin 2.3 g/dL (3.9-5) L 12/16/16 08:25 Albumin/Globulin Ratio 0.7 % 12/16/16 08:25 Triglycerides 72 mg/dL (2-149) 11/30/16 20:37 Cholesterol 132 mg/dL (50-199) 11/30/16 20:37 LDL Cholesterol Direct 82 mg/dL (50-130) 11/30/16 20:37 HDL Cholesterol 36 mg/dL (40-59) L 11/30/16 20:37 Cholesterol/HDL Ratio 3.66 % 11/30/16 20:37 TSH 0.764 mlU/mL (0.270-4.200) 12/08/16 11:50 Urine Color Yellow (Yellow) 11/30/16 10:00 Urine Turbidity Clear (Clear) 11/30/16 10:00 Urine pH 6.0 (5.0-7.0) 11/30/16 10:00 Ur Specific [place] 1.018 (1.003-1.030) 11/30/16 10:00 Urine Protein 30 mg/dl mg/dL (Negative) 11/30/16 10:00 Urine Glucose (UA) Neg mg/dL (Negative) 11/30/16 10:00 Urine Ketones Neg mg/dL (Negative) 11/30/16 10:00 Urine Blood Neg (Negative) 11/30/16 10:00 Urine Nitrite Neg (Negative) 11/30/16 10:00 Urine Bilirubin Neg (Negative) 11/30/16 10:00 Urine Urobilinogen < 2.0 mg/dL (<2.0) 11/30/16 10:00 Ur Leukocyte Esterase Tr (Negative) 11/30/16 10:00 Urine WBC (Auto) 2.0 /HPF (0.0-6.0) 11/30/16 10:00 Urine RBC (Auto) < 1.0 /HPF (0.0-6.0) 11/30/16 10:00 U Epithel Cells (Auto) < 1.0 /HPF (0-13.0) 11/30/16 10:00 Urine Eosinophils None seen (None Seen) 11/30/16 10:00 Urine Creatinine 78.6 mg/dL (0.1-20.0) H 11/30/16 10:00 Urine Sodium 10 mEq/L 11/30/16 10:00 Vancomycin Trough 19.0 ug/mL (5.0-20.0) 12/03/16 06:04 Random Vancomycin 24.7 ug/mL (0-40.0) 12/05/16 05:00 Hepatitis A IgM Ab Non-reactive (NonReactive) 12/08/16 12:20 Hep Bs Antigen Non-reactive (Negative) 12/08/16 12:20 Hep B Core IgM Ab Non-reactive (NonReactive) 12/08/16 12:20 Hepatitis C Antibody Non-reactive (NonReactive) 12/08/16 12:20 Blood Type B POSITIVE 12/17/16 12:25 Antibody Screen TNR 12/17/16 12:25 RHONDA Antibody Screen Negative 12/17/16 12:25 Crossmatch See Detail 12/17/16 12:25
[2016-12-24] MEDS: PROVENTIL IH PRN (20:20)
[2016-12-24] MEDS: DAKIN'S FULL STRENGTH TP SCH (22:04)
[2016-12-25] MEDS: SIMPLE SYRUP FEEDTUBE PRN ×3 (00:21→07:27)
[2016-12-25] MEDS: NOVOLOG SUB-Q SCH ×2 (02:33→07:15)
[2016-12-25] MEDS: DAKIN'S FULL STRENGTH TP SCH ×3 (07:15→08:29)
[2016-12-25] MEDS: LEVEMIR SUB-Q SCH ×2 (08:52→09:03)
[2016-12-25] MEDS: PROTONIX FEEDTUBE SCH (09:02)
[2016-12-25] MEDS: COREG PO SCH (09:04)
[2016-12-25 09:49] VITALS: BP 66/29
== END 2016-12-25 10:50 | disposition hospice, inpatient (51) | DRG 870 ==
LOC: UNDOADMIN 12:06 → 3A 12:06 → CC1 12-02 19:28 → 4A 12-13 18:51 → CC2 12-24 17:22
PROVIDERS: ADMIT Internal Medicine; ATTEND Internal Medicine
PROC: 4B02XTZ Measurement of Cardiac Defibrillator, External Approach (ICD-10-PCS; 2016-11-28)
PROC: 30233N1 Transfusion of Nonautologous Red Blood Cells into Peripheral Vein, Percutaneous Approach (ICD-10-PCS; 2016-11-28)
PROC: 30233R1 Transfusion of Nonautologous Platelets into Peripheral Vein, Percutaneous Approach (ICD-10-PCS; 2016-11-28)
PROC: 5A1D60Z (ICD-10-PCS; 2016-11-28)
PROC: 4A033R1 Measurement of Arterial Saturation, Peripheral, Percutaneous Approach (ICD-10-PCS; 2016-11-28)
PROC: 3E0234Z Introduction of Serum, Toxoid and Vaccine into Muscle, Percutaneous Approach (ICD-10-PCS; 2016-11-28)
PROC: 5A1955Z Respiratory Ventilation, Greater than 96 Consecutive Hours (ICD-10-PCS; principal; 2016-12-02)
PROC: 06HM33Z Insertion of Infusion Device into Right Femoral Vein, Percutaneous Approach (ICD-10-PCS; 2016-12-02)
PROC: B54BZZA Ultrasonography of Right Lower Extremity Veins, Guidance (ICD-10-PCS; 2016-12-02)
PROC: 5A12012 Performance of Cardiac Output, Single, Manual (ICD-10-PCS; 2016-12-02)
PROC: 0BH17EZ Insertion of Endotracheal Airway into Trachea, Via Natural or Artificial Opening (ICD-10-PCS; 2016-12-02)
PROC: 06PY33Z Removal of Infusion Device from Lower Vein, Percutaneous Approach (ICD-10-PCS; 2016-12-08)
PROC: 06HM33Z Insertion of Infusion Device into Right Femoral Vein, Percutaneous Approach (ICD-10-PCS; 2016-12-08)
PROC: 0DJ08ZZ Inspection of Upper Intestinal Tract, Via Natural or Artificial Opening Endoscopic (ICD-10-PCS; 2016-12-08)
PROC: 0DH63UZ Insertion of Feeding Device into Stomach, Percutaneous Approach (ICD-10-PCS; 2016-12-16)
DX: A41.9 Sepsis, unspecified organism (principal); N18.6 End stage renal disease; N17.0 Acute kidney failure with tubular necrosis; I50.23 Acute on chronic systolic (congestive) heart failure; I46.9 Cardiac arrest, cause unspecified; J96.01 Acute respiratory failure with hypoxia; E43 Unspecified severe protein-calorie malnutrition; K29.91 Gastroduodenitis, unspecified, with bleeding; L03.90 Cellulitis, unspecified; L97.929 Non-pressure chronic ulcer of unspecified part of left lower leg with unspecified severity; L97.919 Non-pressure chronic ulcer of unspecified part of right lower leg with unspecified severity; J44.1 Chronic obstructive pulmonary disease with (acute) exacerbation; I13.2 Hypertensive heart and chronic kidney disease with heart failure and with stage 5 chronic kidney disease, or end stage renal disease; G93.1 Anoxic brain damage, not elsewhere classified; K94.23 Gastrostomy malfunction; Z99.11 Dependence on respirator [ventilator] status; E87.6 Hypokalemia; I25.10 Atherosclerotic heart disease of native coronary artery without angina pectoris; E11.22 Type 2 diabetes mellitus with diabetic chronic kidney disease; E11.621 Type 2 diabetes mellitus with foot ulcer; D69.6 Thrombocytopenia, unspecified; I95.9 Hypotension, unspecified; E87.5 Hyperkalemia; E86.0 Dehydration; I25.5 Ischemic cardiomyopathy; I34.0 Nonrheumatic mitral (valve) insufficiency; I07.1 Rheumatic tricuspid insufficiency; I27.2 Other secondary pulmonary hypertension; E11.51 Type 2 diabetes mellitus with diabetic peripheral angiopathy without gangrene; K20.9 Esophagitis, unspecified; D50.0 Iron deficiency anemia secondary to blood loss (chronic); E78.5 Hyperlipidemia, unspecified; L89.899 Pressure ulcer of other site, unspecified stage; R19.7 Diarrhea, unspecified; R13.12 Dysphagia, oropharyngeal phase; F17.210 Nicotine dependence, cigarettes, uncomplicated; D63.1 Anemia in chronic kidney disease; Z95.1 Presence of aortocoronary bypass graft; Z95.810 Presence of automatic (implantable) cardiac defibrillator; Z80.9 Family history of malignant neoplasm, unspecified; Z83.3 Family history of diabetes mellitus; Z82.49 Family history of ischemic heart disease and other diseases of the circulatory system; Z88.8 Allergy status to other drugs, medicaments and biological substances; Z91.048 Other nonmedicinal substance allergy status; Z99.2 Dependence on renal dialysis; Z68.25 Body mass index [BMI] 25.0-25.9, adult
CPT/HCPCS: 31500; 31720; 36415; 36430; 36600; 49465; 70450; 71010; 74000; 76770; 80048; 80053; 80061; 80074; 80202; 81001; 82140; 82270; 82550; 82553; 82570; 82803; 82962; 83036; 83735; 84300; 84443; 84484; 85007; 85014; 85018; 85025; 85027; 85049; 85520; 85610; 85730; 86850; 86900; 86901; 86920; 87040; 87070; 87076; 87116; 87186; 87205; 87493; 89050; 90732; 93005; 93010; 93306; 93922; 93925; 93970; 94002; 94003; 94640; 94760; A6250; A6260; A9270-GY; C9113; G8978-GP; G8979-GP; G8987-GO; G8988-GO; G8996-GN; G8997-GN; G8998-GN; J0171; J0295; J0610; J0690; J0696; J1630; J1644; J1815; J1818; J1940; J2060; J2250; J2270; J2405; J3010; J3246; J3370; J7030; J7040; J7050; P9016; P9035; P9047; Q9963